=== PATIENT | male | born 1945 | race Caucasian/White ===

== ENCOUNTER 2021-11-18 08:57 | Outpatient (CLI) | payer MEDICARE, BC, OTHER, SELFPAY ==
--- OUTSIDE RECORDS SUMMARY | 2021-11-18 09:04 | XMS_ITS | Continuity of Care Document ---
:1945 Author Organization [facility] Care Team Providers Name Role Phone [facility] Unavailable Unavailable Problems Combined list of problems from Department of Defense and Veterans Affairs facilities. It does not include entries that were removed or entered in error. Problem Status Onset Problem Date of Comments Source Date Type Resolution Lymphoma Active Condition Jun 29, [place] 016 2015 Entered [facility] By: MARCELA DAVIDSON Comment: Low grade follicular lymphoma; by livier LN bx Jun 30, 2015 Entered By: MARCELA DAVIDSON Comment: NHL Atrial fibrillation Active Condition [facility] Cough Active Condition [place] [facility] Drug induced Active Condition [place] pneumonitis [facility] Erectile dysfunction Active Condition [facility] Gastroesophageal Active Condition [place] reflux disease [facility] [place] Hyperlipidemia Active Condition [place] [facility] Insomnia [facility] Malignant neoplasm Active Condition [place] of lower lobe of [facility] right lung Multiple pulmonary Active Condition [place] nodules [facility] Obstructive sleep Active Condition [place] apnea of adult [facility] S Osteoarthritis Active Condition May 28, [place] 2018 Entered [facility] By: AUDI W[place] Comment: S/P left total hip in 2017 Rash Active Condition [facility] 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 [facility] 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 Generalized Inactive Condition 06/30/2015 Jun 23, [place] lymphadenopathy 2016 Entered [facility] By: MARCELA DAVIDSON Comment: Incidental finding from AAA screening 05/2015Jun 24, 2015 Entered By: MARCELA DAVIDSON Comment: IR consult placed 06/2015 Diagnosis: ICD-10-CM Active Diagnosis [place] 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 Provider Comments: Secondary Malignant Neoplasm of Brain Diagnosis: ICD-10-CM Active Diagnosis [place] C34.31 Malignant [facility] neoplasm of lower lobe, right bronchus or lungwith Provider Comments: Malignant neoplasm of lower lobe of right lung (SCT [id number]) Diagnosis: ICD-10-CM Active Diagnosis [place] Z45.2 Encounter for [facility] adjustment and management of VADwith Provider Comments: Encounter for adjustment and management of VAD Diagnosis: ICD-10-CM Active Diagnosis [place] C71.9 Malignant [facility] neoplasm of brain, unspecifiedwith Provider Comments: Secondary malignant neoplasm of brain (SCT 55870800) Diagnosis: ICD-10-CM Active Diagnosis [place] C71.9 Malignant [facility] neoplasm of brain, unspecifiedwith Provider Comments: Secondary malignant neoplasm of brain (SNOMED CT 64274111) Diagnosis: ICD-10-CM Active Diagnosis [place] Z71.89 Other [facility] specified counselingwith Provider Comments: Other specified counseling Diagnosis: ICD-10-CM Active Diagnosis [place] Z23 Encounter for [facility] immunizationwith Provider Comments: Encounter for Immunization Diagnosis: ICD-10-CM Active Diagnosis [place] J20.9 Acute [facility] bronchitis, unspecifiedwith Provider Comments: Acute Bronchitis, unspecified Diagnosis: ICD-10-CM Active Diagnosis [place] G47.33 Obstructive [facility] sleep apnea (adult) (pediatric)with Provider Comments: Obstructive sleep apnea of adult ([facility] [id number]) Diagnosis: ICD-10-CM Active Diagnosis [place] I73.9 Peripheral [facility] vascular disease, unspecifiedwith Provider Comments: Peripheral Vascular Disease, Unspecified Diagnosis: ICD-10-CM Active Diagnosis [place] C82.90 Follicular [facility] lymphoma, unspecified, unspecified sitewith Provider Comments: Lymphoma (SCT 626678251) Diagnosis: ICD-10-CM Active Diagnosis [place] C64.1 Malignant [facility] neoplasm of right kidney, except renal pelviswith Provider Comments: Malignant neoplasm of right kidney, except renal pelvis Diagnosis: ICD-10-CM Active Diagnosis [place] C77.1 Secondary and [facility] unsp malignant neoplasm of intrathorac nodeswith Provider Comments: Secondary malignant neoplasm of intrathoracic lymph nodes (SCT 54741370) Diagnosis: ICD-10-CM Active Diagnosis [place] I48.91 Unspecified [facility] atrial fibrillationwith Provider Comments: Atrial fibrillation (SCT 50425004) Diagnosis: ICD-10-CM Active Diagnosis [place] Z13.6 Encounter for [facility] screening for cardiovascular disorderswith Provider Comments: Encounter for Screening for Cardiovascular Disorders Diagnosis: ICD-10-CM Active Diagnosis [place] B86 Scabieswith [facility] Provider Comments: Scabies Diagnosis: ICD-10-CM Active Diagnosis [place] R05 Coughwith [facility] Provider Comments: Cough (SCT 59501679) Diagnosis: ICD-10-CM Active Diagnosis [place] Z79.01 snf [facility] (current) use of anticoagulantswith 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 Diagnosis: ICD-10-CM Active Diagnosis [place] R21 Rash and other [facility] nonspecific skin eruptionwith Provider Comments: Rash and other Nonspecific Skin Eruption Diagnosis: ICD-10-CM Active Diagnosis [place] G47.33 Obstructive [facility] sleep apnea (adult) (pediatric)with Provider Comments: Obstructive sleep apnea of adult (SNOMED CT [id number]) Diagnosis: ICD-10-CM Active Diagnosis [place] G47.33 Obstructive [facility] sleep apnea (adult) (pediatric)with Provider Comments: Obstructive sleep apnea (adult) (pediatric) Diagnosis: ICD-10-CM Active Diagnosis [place] R06.83 Snoringwith [facility] Provider Comments: Snoring Diagnosis: ICD-10-CM Active Diagnosis [place] Z88.8 Allergy status [facility] to other drug/meds/biol substwith Provider Comments: Drug induced pneumonitis (SNOMED CT 661605422) Diagnosis: ICD-10-CM Active Diagnosis [place] I48.91 Unspecified [facility] atrial fibrillationwith Provider Comments: Atrial fibrillation (SNOMED CT 81424721) Diagnosis: ICD-10-CM Active Diagnosis [place] R42 Dizziness and [facility] giddinesswith Provider Comments: Dizziness and Giddiness Diagnosis: ICD-10-CM Active Diagnosis [place] Z74.09 Other reduced [facility] mobilitywith Provider Comments: Reduced Mobility Diagnosis: ICD-10-CM Active Diagnosis [place] Z71.81 Spiritual or [facility] moravian counselingwith Provider Comments: Spiritual or moravian counseling Diagnosis: ICD-10-CM Active Diagnosis [place] Z51.81 Encounter for [facility] therapeutic drug level monitoringwith Provider Comments: Encounter for Therapeutic Drug Level Monitoring Diagnosis: ICD-10-CM Active Diagnosis [place] R06.02 Shortness of [facility] breathwith Provider Comments: Shortness of Breath Admit Reason: Active Diagnosis [place] PNA,HYPOXIADiagnosis [facility] : ICD-10-CM R05 Coughwith Provider Comments: Cough (SCT 56079511) Diagnosis: ICD-10-CM Active Diagnosis [place] J18.8 Other [facility] pneumonia, unspecified organismwith Provider Comments: Other Pneumonia, unspecified Organism Diagnosis: ICD-10-CM Active Diagnosis [place] R06.09 Other forms [facility] of dyspneawith Provider Comments: Other Forms of Dyspnea Diagnosis: ICD-10-CM Active Diagnosis [place] L30.9 Dermatitis, [facility] unspecifiedwith Provider Comments: Dermatitis, unspecified Medications Combined list of outpatient medications from Department of Defense and Veterans Affairs facilities. Medications provided include 1) outpatient medications from the last 15 months, and 2) patient-reported medications. Medication Details Route Status Patient Prescription Prescription Last Ordering Order Source Instructions Expires Number Dispense Provider Date Date ALBUTEROL INHALE 2 INHALA 07/08/2021 [id number] AN GSUBHAK 09/15/ [place] 90MCG/ACTUA PUFFS BY TION 1 ORN,NATTH 2020 [place] [facility] T (CFC-F) INHALATI APON HCS INHL,ORAL,8 ON FOUR .5GM DOSE TIMES A COUNTER DAY NEEDED SHAKE WELL (FOR IMMEDIAT E RELIEF). APIXABAN TAKE ONE ORALLY ACTIVE 08/16/2022 [id number] SIN NER,KI 08/25/ [place] 5MG TAB TABLET 2 RSTIN M 2021 [place] [facility] BY MOUTH HCS EVERY 12 HOURS TO PREVENT AND/OR TREAT BLOOD CLOTS APIXABAN TAKE ONE ORALLY DISCONT 09/10/2021 [id number] SIN NER,KI 09/09/ [place] 5MG TAB TABLET INUED 2 RSTIN M 2020 [place] [facility] BY [facility]TH [facility] EVERY 12 HOURS TO PREVENT AND/OR TREAT BLOOD CLOTS ATORVASTATI TAKE ORALLY ACTIVE 06/08/2022 [id number] ERICS ON,L 06/30/ [place] CA 20MG ONE-HALF 2 MARCO ANTONIO E 2021 [place] [facility] A TAB TABLET HCS BY MOUTH AT BEDTIME FOR CHOLESTE ROL ATORVASTATI TAKE ORALLY DISCONT 07/16/2021 [id number] M OORHEAD, 07/15/ [place] 20MG ONE-HALF INUED 2 DEBBIE 2020 JARETT S VA TAB TABLET M HCS BY MOUTH AT BEDTIME FOR CHOLESTE ROL AZITHROMYCI TAKE TWO ORALLY 09/21/2021 [id number] MCKINLEY REYES 08/22/ [place] 250MG TAB TABLETS 2 AZ 2021 [place] [facility] A BY MOUTH HCS ONCE FOR 1 DAY, THEN TAKE ONE TABLET EVERY DAY FOR 4 DAYS FOR BRONCHIT IS CHOLECALCIF TAKE TWO ORALLY ACTIVE JACKIE,L 05/03 / [place] MARCIA 25MCG TABLETS MARCO ANTONIO 2021 [place] [facility] A (1,000UNIT) BY MOUTH HCS TAB EVERY DAY CLINDAMYCIN APPLY TO TOPICA 04/22/2021 [id number] HUNGERFOR 04/21/ [place] PO4 1% THIGHS LLY 1 D,JOHN R 2020 [place] [facility] LOTION AND HCS LOWER ABDOMEN TOPICALL Y TWICE A DAY CODEINE TAKE 10 ORALLY 09/21/2021 [id number] ERICMU MT 08/22/ [place] 10MG/GUAIFE ML BY 2 AZ 2021 [place] [facility] NESIN MOUTH HCS 100MG/5ML EVERY 6 (SF & AF) HOURS LIQUID NEEDED FOR COUGH DILTIAZEM TAKE ONE ORALLY ACTIVE 08/31/2022 [id number] GL AUSER,N 08/31/ [place] (EQV-TIAZAC CAPSULE 2 ORA N 2021 [place] A AB4) 180MG BY MOUTH HCS 24HR CAP EVERY DAY DILTIAZEM TAKE ONE ORALLY DISCONT 12/07/2021 [id number] G LAUSER,N 03/13/ [place] (EQV-TIAZAC CAPSULE INUED 2 ORA N 2021 [place] A AB4) 180MG BY MOUTH HCS 24HR CAP EVERY DAY DILTIAZEM TAKE ONE ORALLY DISCONT 09/24/2021 [id number] GL AUSER,N 09/24/ [place] (EQV-TIAZAC CAPSULE INUE 1 ORA N 2020 [place] A AB4) 180MG BY MOUTH HCS 24HR CAP EVERY DAY FAMOTIDINE TAKE ONE ORALLY ACTIVE 04/20/2022 [id number] E RICSON,L 04/19/ [place] 20MG TAB TABLET 2 2021 [place] [facility] TWICE A DAY FOR GERD*REP LACES RANITIDI NE FAMOTIDINE TAKE ONE ORALLY DISCONT 06/08/2021 [id number] JACKIE,L 07/11/ [place] 20MG TAB TABLET INUE 2 2020 [place] [facility] TWICE A DAY FOR GERD*REP LACES RANITIDI NE FOLIC ACID TAKE ONE ORALLY ACTIVE 03/22/2022 [id number] L UIKART,S 03/22/ [place] 1MG TAB TABLET 2 HAR D 2021 [place] [facility] EVERY DAY FOR CHEMO PREMED FOLIC ACID TAKE ONE ORALLY DISCONT 02/23/2021 [id number] L [employer],S 02/22/ [place] 1MG TAB TABLET INUE 1 HARON D 2019 [place] [facility] EVERY DAY FOR CHEMO PREMED GUAIFENESIN TAKE ONE ORALLY 10/01/2021 [id number] JACKIE,L 09/01/ [place] 200MG TAB TABLET 2 E 2021 [place] [facility] BY [facility]TH [facility] EVERY 6 HOURS NEEDED FOR COUGH HYDROXYZINE TAKE ONE ORALLY 04/22/2021 [id number] HUNGERFOR 04/21/ [place] HCL 10MG TABLET 1 D,JOHN R 2020 [place] [facility] A TAB BY MOUTH HCS AT BEDTIME FOR ITCHING MAGNESIUM TAKE ORALLY ACTIVE JACKIE,L 05/03/ [place] OXIDE TAB 400MG BY MARCO ANTONIO E 2021 [place] [facility] A MOUTH HCS EVERY DAY METOPROLOL TAKE ONE ORALLY DISCONT 09/03/2021 [id number] G LAUSER,N 09/07/ [place] TARTRATE TABLET INUED 1 ORA N 2020 [place] [facility] 50MG TAB BY MOUTH HCS TWICE A DAY MULTIVITAMI TAKE ONE ORALLY ACTIVE AWILDA,R 05/06 / [place] NS CAP/TAB TABLET ON2015 [place] [facility] A BY MOUTH HCS EVERY DAY OLODATEROL INHALE 2 INHALA ACTIVE 09/23/2022 [id number] ER ICSON,L 09/23/ [place] 2.5MCG/TIOT PUFFS BY TION 2 E 2021 [place] [facility] ROPIUM INHALATI HCS 2.5MCG/ACTU ON EVERY AT DAY TO INHL,ORAL,6 PREVENT 0D,4GM TROUBLE BREATHIN G OLODATEROL INHALE 2 INHALA DISCONT 10/29/2021 [id number] STEPHY BAZZI 11/01/ [place] 2.5MCG/TIOT PUFFS BY TION INUED 2 IFER L 2020 [place] [facility] ROPIUM INHALATI HCS 2.5MCG/ACTU ON EVERY AT DAY TO INHL,ORAL,6 PREVENT 0D,4GM TROUBLE BREATHIN G PERMETHRIN APPLY TOPICA 10/09/2021 [id number] MOY MARCIAL 10/08/ [place] 5% CREAM THIN LLY 1 OTHY R 2020 [place] [facility] LAYER HCS TOPICALL Y DIRECTED PLEASE APPLY TO ENTIRE SKIN FROM NECK DOWN AND LEAVE ON OVERNIGH T. WASH OFF IN THE MORNING. PLEASE REPEAT 1 WEEK LATER PLEASE APPLY TO ENTIRE SKIN FROM NECK DOWN AND LEAVE ON OVERNIGH T. WASH OFF IN THE MORNING. PLEASE REPEAT 1 WEEK LATER PREDNISONE TAKE ORALLY 10/21/2020 [id number] ARCHIB ALD 09/21/ [place] 10MG TAB THREE 1 ,JOHN K 2020 [place] [facility] TABLETS HCS BY MOUTH EVERY MORNING TAKE WITH FOOD TERBINAFINE APPLY TOPICA 06/11/2021 [id number] JANETT MEYER 06/11/ [place] HCL 1% THIN LLY 1 OOKE M 2020 [place] [facility] CREAM,TOP LAYER HCS TOPICALL Y TWICE A DAY FOR FUNGAL INFECTIO N TRIAMCINOLO APPLY TOPICA 06/11/2021 [id number] JANETT MEYER 06/11/ [place] NE THIN LLY 1 OOKE M 2020 [place] [facility] ACETONIDE LAYER HCS 0.1% TOPICALL OINT,TOP Y TWICE A DAY AVOID FACE,LAURA IN and ARMPITS *FOR EXTERNAL USE ONLY FOR DERMATIT IS UREA 40% APPLY TOPICA 03/27/2021 [id number] AIDEN 03/26/ [place] CREAM,TOP THIN LLY 1 NATI 2020 [place] [facility] LAYER [facility] EVERY DAY OR TWICE A DAY FOR THICK SKIN ON SOLES OF FEET Immunizations Combined list of available immunizations from the Department of Defense and Veterans Affairs facilities. 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; [place] ([employer]), 2021 ed [id number]; [place] MRNA, LNP-S, 02 HCS PF, 30 2 MCG/0.3 ML DOSE, PAUL-SUCROSE (AGES 12+ YEARS) COVID-19 3 complet PFR; [place] ([employer] 2020 ed [id number]; [place] MRNA, LNP-S, 02 HCS PF, 30 1 MCG/0.3 ML DOSE INFLUENZA, complet [place] INJECTABLE, 2020 ed [place] QUADRIVALENT, HCS PRESERVATIVE FREE COVID-19 2 complet PFR; [place] ([employer] 2020 ed [id number]; [place] MRNA, LNP-S, 02 HCS PF, 30 1 MCG/0.3 ML DOSE COVID-19 1 complet PFR; [place] ([employer] 2020 ed [id number]; [place] MRNA, LNP-S, 02 HCS PF, 30 1 MCG/0.3 ML DOSE INFLUENZA, complet [place] INJECTABLE, 2019 ed [place] QUADRIVALENT, HCS PRESERVATIVE FREE INFLUENZA, complet [place] SEASONAL, 2017 ed [place] [facility] INJECTABLE, HC S PRESERVATIVE FREE INFLUENZA, complet [place] HIGH DOSE 2016 ed [facility] [facility] SEASONAL [facility] INFLUENZA, complet [place] HIGH DOSE 2015 ed [facility] [facility] SEAS[facility] PNEUMOCOCCAL complet merc k and [place] POLYSACCHARID 2016 ed [id number] [place] [facility] E [id number] ,[id number] HC S 7 PNEUMOCOCCAL complet Wyet h; [place] CONJUGATE PCV 2016 ed [id number] ; [place] [facility] 13 07/2016 HCS ZOSTER LIVE complet [employer] ; [place] 2016 ed [id number]; [place] [facility] 6 INFLUENZA, complet [place] SEASONAL, 2015 ed [place] [facility] INJECTABLE [facility]CS TDAP complet [place] 2014 ed CLINIC Results Combined list of recent chemistry, hematology and other laboratory results from Department of Defense and Veterans Affairs, ranging from 15 months to all on record, depending upon the facility. Order Results Value Reference Date Interpretation Specimen Commen ts Source Name Range FINGERST GLUCOSE 109 70 - 100 0818 H Specimen Type: BLOOD [place] ICK [MASS/VOLU /2021 Comment: Sebastian e Result IS [facility] GLUCOSE ME] IN Ordering Provid er: LIAM MEJIA CAPILLARY Report Releas ed Date/Time: Oct 27, 2021 01:25 PM BLOOD Reporting Lab: [facility] [place] [address] Performing Lab: [facility] [place] [address] CBC & LEUKOCYTES 10.67 4.0 - 11.0 0818 Specimen T ype: BLOOD [place] DIFF [#/VOLUME] /2021 Comment: Aut omated Differential Performed IS [facility] IN BLOOD Ordering Provi reji: DENG LOUISE BY Report Released Date/Time: Oct 14, 2021 10:46 AM AUTOMATED Reporting Lab : [facility] [address] [place] [facility] [phone] Performing Lab: [facility] [address] [place] [facility] [address] CBC & ERYTHROCYT 3.73 4.6 - 6.2 08/18 L Specimen Ty pe: BLOOD [place] DIFF ES /2021 Comment: Automa kerrie Differential Performed IS [facility] [#/VOLUME] Ordering Pro vider: DENG LOUISE IN BLOOD Report Release d Date/Time: Oct 14, 2021 10:46 AM BY Reporting Lab: [facility] AUTOMATED [address] [employer] [facility] [address] COUNT Performing Lab: [facility] [address] [place] [facility] [address] CBC & HEMOGLOBIN 11.4 13.5 - 08/18 L Specimen Type : BLOOD [place] DIFF [MASS/VOLU 17.9 /2021 Comment: Aut omated Differential Performed IS [facility] ME] IN Ordering Provid er: DENG LOUISE BLOOD Report Released Date/Time: Oct 14, 2021 10:46 AM Reporting Lab: [facility] [address] [place] [facility] [phone] Performing Lab: [facility] [address] [place] [facility] [address] CBC & HEMATOCRIT 34.7 41 - 54 08/18 L Specimen Type : BLOOD [place] DIFF [VOLUME /2021 Comment: Automa kerrie Differential Performed IS [facility] FRACTION] Ordering Prov ider: DENG LOUISE OF BLOOD Report Release d Date/Time: Oct 14, 2021 10:46 AM BY Reporting Lab: [facility] AUTOMATED [address] [employer] [facility] [address] COUNT Performing Lab: [facility] [address] [place] [facility] [address] CBC & MCV 93.0 80 - 100 10/27 Specimen Type: BLOOD [place] DIFF [ENTITIC /2021 Comment: Autom ated Differential Performed IS [facility] VOLUME] BY Ordering Pro vider: DENG LOUISE AUTOMATED Report Releas ed Date/Time: Oct 14, 2021 10:46 AM COUNT Reporting Lab: [facility] [address] [place] [facility] [phone] Performing Lab: [facility] [address] [place] [facility] [address] CBC & MCH 30.6 27 - 33 10/27 Specimen Type: B LOOD [place] DIFF [ENTITIC /2021 Comment: Autom ated Differential Performed IS [facility] MASS] BY Ordering Provi reji: DENG LOUISE AUTOMATED Report Releas ed Date/Time: Oct 14, 2021 10:46 AM COUNT Reporting Lab: [facility] [address] [place] [facility] [phone] Performing Lab: [facility] [address] [place] [facility] [address] CBC & MCHC 32.9 32.0 - 10/27 Specimen Type: B LOOD [place] DIFF [MASS/VOLU 37.5 /2021 Comment: Aut omated Differential Performed IS [facility] ME] BY Ordering Provid er: DENG LOUISE AUTOMATED Report Releas ed Date/Time: Oct 14, 2021 10:46 AM COUNT Reporting Lab: [facility] [address] [place] [facility] [address] Performing Lab: [facility] [address] [place] [facility] [address] CBC & PLATELETS 212 150 - 400 10/27 Specimen Typ e: BLOOD [place] DIFF [#/VOLUME] /2021 Comment: Aut omated Differential Performed IS [facility] IN BLOOD Ordering Provi reji: DENG LOUISE BY Report Released Date/Time: Oct 14, 2021 10:46 AM AUTOMATED Reporting Lab : [facility] COUNT [address] [place] [facility] [address] Performing Lab: [facility] [address] [place] [facility] [address] CBC & PLATELET 8.5 7.4 - 10.4 10/27 Specimen Typ e: BLOOD [place] DIFF MEAN /2021 Comment: Automa kerrie Differential Performed IS [facility] VOLUME Ordering Provid er: DENG LOUISE [ENTITIC Report Release d Date/Time: Oct 14, 2021 10:46 AM VOLUME] IN Reporting La b: [facility] BLOOD [place] [address] AUTOMATED Performing La b: [facility] COUNT [address] [place] [address] CBC & NEUTROPHIL 87.9 10/27 Specimen Type : BLOOD [place] DIFF S/100 /2021 Comment: Automa kerrie Differential Performed IS [facility] LEUKOCYTES Ordering Pro vider: DENG LOUISE IN BLOOD Report Release d Date/Time: Oct 14, 2021 10:46 AM BY MANUAL Reporting Lab : [facility] [place] [address] Performing Lab: [facility] [address] [place] [address] CBC & LYMPHOCYTE 8.1 10/27 Specimen Type : BLOOD [place] DIFF S/100 /2021 Comment: Automa kerrie Differential Performed IS [facility] LEUKOCYTES Ordering Pro vider: DENG LOUISE IN BLOOD Report Release d Date/Time: Oct 14, 2021 10:46 AM BY MANUAL Reporting Lab : [facility] [place] [address] Performing Lab: [facility] [place] [address] CBC & MONOCYTES/ 3.3 10/27 Specimen Type : BLOOD [place] DIFF 100 /2021 Comment: Automa kerrie Differential Performed IS [facility] LEUKOCYTES Ordering Pro vider: DENG LOUISE IN BLOOD Report Release d Date/Time: Oct 14, 2021 10:46 AM BY Reporting Lab: [facility] [place] [address] COUNT Performing Lab: [facility] [place] [address] CBC & BASOPHILS/ 0.1 10/27 Specimen Type : BLOOD [place] DIFF 100 /2021 Comment: Automa kerrie Differential Performed IS [facility] LEUKOCYTES Ordering Pro vider: DENG LOUISE IN BLOOD Report Release d Date/Time: Oct 14, 2021 10:46 AM BY MANUAL Reporting Lab : [facility] [place] [address] Performing Lab: [facility] [place] [address] CBC & ERYTHROCYT 14.4 11.5 - 10/27 Specimen Type : BLOOD [place] DIFF E 14.5 /2021 Comment: Automa kerrie Differential Performed IS [facility] DISTRIBUTI Ordering Pro vider: DENG LOUISE ON WIDTH Report Release d Date/Time: Oct 14, 2021 10:46 AM [RATIO] BY Reporting La b: [facility] AUTOMATED [address] [facility] [address] COUNT Performing Lab: [facility] [address] [place] [facility] [address] CBC & LYMPHOCYTE 0.86 1.0 - 4.0 08/18 L Specimen Ty pe: BLOOD [place] DIFF S /2021 Comment: Automa kerrie Differential Performed IS [facility] [#/VOLUME] Ordering Pro vider: DENG LOUISE IN BLOOD Report Release d Date/Time: Oct 14, 2021 10:46 AM BY Reporting Lab: [facility] AUTOMATED [address] [employer] [facility] [address] COUNT Performing Lab: [facility] [address] [place] [facility] [address] CBC & MONOCYTES 0.35 0.1 - 1.0 08 Specimen Typ e: BLOOD [place] DIFF [#/VOLUME] /2021 Comment: Aut omated Differential Performed IS [facility] IN BLOOD Ordering Provi reji: DENG LOUISE BY Report Released Date/Time: Oct 14, 2021 10:46 AM AUTOMATED Reporting Lab : [facility] [address] [place] [facility] [address] Performing Lab: [facility] [address] [place] [facility] [address] CBC & NEUTROPHIL 9.39 2.0 - 7.7 08/18 H Specimen Ty pe: BLOOD [place] DIFF S /2021 Comment: Automa kerrie Differential Performed IS [facility] [#/VOLUME] Ordering Pro vider: DENG LOUISE IN BLOOD Report Release d Date/Time: Oct 14, 2021 10:46 AM BY Reporting Lab: [facility] AUTOMATED [address] [employer] [facility] [address] COUNT Performing Lab: [facility] [address] [place] [facility] [address] CBC & BASOPHILS 0.01 0 - 0.2 10/27 Specimen Type: BLOOD [place] DIFF [#/VOLUME] /2021 Comment: Aut omated Differential Performed IS [facility] IN BLOOD Ordering Provi reji: DENG LOUISE BY Report Released Date/Time: Oct 14, 2021 10:46 AM AUTOMATED Reporting Lab : [facility] [address] [place] [address] Performing Lab: [facility] [address] [place] [address] CBC & IG(META,MY 0.6 10/27 Specimen Type : BLOOD [place] DIFF EDEL,PRO) /2021 Comment: Autom ated Differential Performed IS [facility] Ordering Provid er: DENG LOUISE Report Released Date/Time: Oct 14, 2021 10:46 AM Reporting Lab: [facility] [address] [place] [address] Performing Lab: [facility] [address] [place] [id number] CBC & IMMATURE 0.06 0 - 0.1 10/27 Specimen Type: BLOOD [place] DIFF GRANULOCYT /2021 Comment: Aut omated Differential Performed IS [facility] ES Ordering Provid er: DENG LOUISE [PRESENCE] Report Relea sed Date/Time: Oct 14, 2021 10:46 AM IN BLOOD Reporting Lab: [facility] [place] [address] AUTOMATED Performing La b: [facility] [place] [address] COMPREHE CREATININE 1.0 0.7 - 1.2 10/27 Specimen T ype: PLASMA [place] NSIVE [MASS/VOLU /2021 No comment en tered. IS [facility] METABOLI ME] IN Ordering Provi reji: DENG LOUISE SERUM OR Report Release d Date/Time: Oct 14, 2021 10:46 AM PANEL+MG PLASMA Reporting Lab: [facility] [place] [address] Performing Lab: [facility] [address] [place] [facility] [address] COMPREHE UREA 23 8 - 26 10/27 Specimen Type: PLASMA [place] NSIVE NITROGEN /2021 No comment ente red. IS [facility] METABOLI [MASS/VOLU Ordering Pr ovider: DENG LOUISE ME] IN Report Released Date/Time: Oct 14, 2021 10:46 AM PANEL+MG SERUM OR Reporting Lab : [facility] [place] [address] Performing Lab: [facility] [address] [place] [facility] [address] COMPREHE GLUCOSE 115 70 - 100 10/27 H Specimen Type: PLASMA [place] NSIVE [MASS/VOLU /2021 No comment en tered. IS [facility] METABOLI ME] IN Ordering Provi reji: DENG LOUISE SERUM OR Report Release d Date/Time: Oct 14, 2021 10:46 AM PANEL+MG PLASMA Reporting Lab: [facility] [address] [place] [facility] [address] Performing Lab: [facility] [address] [place] [facility] [address] COMPREHE SODIUM 141 136 - 145 10/27 Specimen Type : PLASMA [place] NSIVE [MOLES/VOL /2021 No comment en tered. IS [facility] METABOLI UME] IN Ordering Provi reji: DENG LOUISE SERUM OR Report Release d Date/Time: Oct 14, 2021 10:46 AM PANEL+MG PLASMA Reporting Lab: [facility] [address] [place] [facility] [address] Performing Lab: [facility] [address] [place] [facility] [address] COMPREHE POTASSIUM 4.1 3.5 - 5.1 10/27 Specimen Ty pe: PLASMA [place] NSIVE [MOLES/VOL /2021 No comment en tered. IS [facility] METABOLI UME] IN Ordering Provi reji: DENG LOUISE SERUM OR Report Release d Date/Time: Oct 14, 2021 10:46 AM PANEL+MG PLASMA Reporting Lab: [facility] [address] [place] [facility] [address] Performing Lab: [facility] [address] [place] [facility] [address] COMPREHE CHLORIDE 109 98 - 107 10/27 H Specimen Type : PLASMA [place] NSIVE [MOLES/VOL /2021 No comment en tered. IS [facility] METABOLI UME] IN Ordering Provi reji: DENG LOUISE SERUM OR Report Release d Date/Time: Oct 14, 2021 10:46 AM PANEL+MG PLASMA Reporting Lab: [facility] [address] [place] [facility] [address] Performing Lab: [facility] [address] [place] [facility] [address] COMPREHE CARBON 24 22 - 29 10/27 Specimen Type: PLASMA [place] NSIVE DIOXIDE, /2021 No comment ente red. IS [facility] [place] TOTAL Ordering Provi reji: DENG LOUISE [MOLES/VOL Report Relea sed Date/Time: Oct 14, 2021 10:46 AM PANEL+MG UME] IN Reporting Lab: [facility] SER[facility] OR [address] [place] [facility] [address] PLASMA Performing Lab: [facility] [address] [place] [facility] [address] COMPREHE CALCIUM 8.8 8.4 - 10.2 10/27 Specimen Typ e: PLASMA [place] NSIVE [MASS/VOLU /2021 No comment en tered. IS [facility] METABOLI ME] IN Ordering Provi reji: DENG LOUISE SERUM OR Report Release d Date/Time: Oct 14, 2021 10:46 AM PANEL+MG PLASMA Reporting Lab: [facility] [address] [place] [facility] [address] Performing Lab: [facility] [address] [place] [facility] [address] COMPREHE PROTEIN 6.0 6.0 - 8.3 10/27 Specimen Type : PLASMA [place] NSIVE [MASS/VOLU /2021 No comment en tered. IS [facility] METABOLI ME] IN Ordering Provi reji: DENG LOUISE SERUM OR Report Release d Date/Time: Oct 14, 2021 10:46 AM PANEL+MG PLASMA Reporting Lab: [facility] [address] [place] [facility] [address] Performing Lab: [facility] [address] [place] [facility] [address] COMPREHE ALBUMIN 3.4 3.5 - 5.2 10/27 L Specimen Type : PLASMA [place] NSIVE [MASS/VOLU /2021 No comment en tered. IS [facility] METABOLI ME] IN Ordering Provi reji: DENG LOUISE SERUM OR Report Release d Date/Time: Oct 14, 2021 10:46 AM PANEL+MG PLASMA Reporting Lab: [facility] [address] [place] [facility] [address] Performing Lab: [facility] [address] [place] [facility] [address] COMPREHE BILIRUBIN. 0.3 0.2 - 1.2 10/27 Specimen T ype: PLASMA [place] NSIVE TOTAL /2021 No comment enter ed. IS [facility] METABOLI [MASS/VOLU Ordering Pr ovider: DENG LOUISE ME] IN Report Released Date/Time: Oct 14, 2021 10:46 AM PANEL+MG SERUM OR Reporting Lab : [facility] [address] [place] [facility] [address] Performing Lab: [facility] [address] [place] [facility] [address] COMPREHE MAGNESIUM 1.9 1.6 - 2.6 10/27 Specimen Ty pe: PLASMA [place] NSIVE [MASS/VOLU /2021 No comment en tered. IS [facility] METABOLI ME] IN Ordering Provi reji: DENG LOUISE SERUM OR Report Release d Date/Time: Oct 14, 2021 10:46 AM PANEL+MG PLASMA Reporting Lab: [facility] [address] [place] [facility] [address] Performing Lab: [facility] [address] [place] [facility] [address] COMPREHE ANION GAP 8 5 - 15 10/27 Specimen Type : PLASMA [place] NSIVE IN SERUM /2021 No comment ente red. IS [facility] METABOLI OR PLASMA Ordering Pro vider: DENG LOUISE Report Released Date/Time: Oct 14, 2021 10:46 AM PANEL+MG Reporting Lab: [facility] [address] [place] [facility] [address] Performing Lab: [facility] [address] [place] [facility] [address] COMPREHE ALKALINE 66 40 - 150 10/27 Specimen Type : PLASMA [place] NSIVE PHOSPHATAS /2021 No comment en tered. IS [facility] METABOLI E Ordering Provi reji: DENG LOUISE [ENZYMATIC Report Relea sed Date/Time: Oct 14, 2021 10:46 AM PANEL+MG ACTIVITY/V Reporting L ab: [facility] OLUME] IN [facility] [address] SERUM OR Performing Lab : [facility] [address] [place] [facility] [address] COMPREHE ALANINE 26 <55 - 55 10/27 Specimen Type: PLASMA [place] NSIVE AMINOTRANS /2021 No comment en tered. IS [facility] METAB[place]I FERASE Ordering Provi reji: DENG LOUISE [ENZYMATIC Report Relea sed Date/Time: Oct 14, 2021 10:46 AM PANEL+MG ACTIVITY/V Reporting L ab: [facility] OLUME] IN ONE [facility] [address] SERUM OR Performing Lab : [facility] [address] [place] [facility] [address] COMPREHE ASPARTATE 10 <34 - 34 10/27 Specimen Typ e: PLASMA [place] NSIVE AMINOTRANS /2021 No comment en tered. IS [facility] METABOLI FERASE Ordering Provi reji: DENG LOUISE [ENZYMATIC Report Relea sed Date/Time: Oct 14, 2021 10:46 AM PANEL+MG ACTIVITY/V Reporting L ab: [facility] OLUME] IN [address] [facility] [address] SERUM OR Performing Lab : [facility] [address] [place] [facility] [address] COMPREHE GLOMERULAR 78 60 10/27 Specimen Typ e: PLASMA [place] NSIVE FILTRATION /2021 No comment en tered. IS [facility] MET[place]I RATE/1.73 Ordering Pro vider: DENG LOUISE SQ Report Released Date/Time: Oct 14, 2021 10:46 AM PANEL+MG M.PREDICTE Reporting L ab: [facility] D [VOLUME [facility] [address] RATE/AREA] Performing L ab: [facility] IN SERUM, [facility] [address] PLASMA OR BLOOD BY CREATININE -BASED FORMULA (CKD-EPI) POC CREATININE 1.2 0.6 - 1.3 09/15 Specimen Ty pe: BLOOD [place] CREATINI [MASS/VOLU /2021 No comment e ntered. IS [facility] NE ME] IN Ordering Provid er: LIAM MEJIA BLOOD Report Released Date/Time: Sep 15, 2021 10:02 AM Reporting Lab: [facility] [address] [place] [facility] [address] Performing Lab: [facility] [address] [place] [facility] [address] EXTRA EXTRA MINT RECEIVED 09/15 Specimen Typ e: PLASMA [place] MINT TUBE /2021 No comment enter ed. IS [facility] TUBE Ordering Provid er: LIAM MEJIA Report Released Date/Time: Sep 15, 2021 09:39 AM Reporting Lab: [facility] [address] [place] [facility] [address] Performing Lab: [facility] [address] [place] [facility] [address] B 12 COBALAMIN 746 265 - 580 09/15 Specimen Typ e: SERUM [place] (VITAMIN /2021 No comment ente red. IS [facility] B12) Ordering Provid er: CHACHO GOMEZ [MASS/VOLU Report Relea sed Date/Time: May 21, 2021 03:59 PM ME] IN Reporting Lab: [facility] SERUM OR [address] [place] [address] PLASMA Performing Lab: [facility] [address] [place] [address] IRON IRON 71 65 - 175 07 Specimen Type: SERUM [place] GROUP [MASS/VOLU /2021 No comment en tered. IS [facility] ME] IN Ordering Provid er: PATRICIASHANACHACHO SERUM OR Report Release d Date/Time: May 21, 2021 03:59 PM PLASMA Reporting Lab: [facility] [address] [place] [address] Performing Lab: [facility] [address] [place] [address] IRON IRON 258 250 - 425 09/15 Specimen Type: SERUM [place] GROUP BINDING No comment enter ed. IS [facility] CAPACITY Ordering Provi reji: PATRICIA,CHACHO [MASS/VOLU Report Relea sed Date/Time: May 21, 2021 03:59 PM ME] IN Reporting Lab: [facility] SERUM OR [address] [place] [facility] [address] PLASMA Performing Lab: [facility] [address] [place] [address] IRON FERRITIN 195.5 21.8 - 07/ Specimen Type: SERUM [place] GROUP [MASS/VOLU 274.7 /2021 No comment en tered. IS [facility] ME] IN Ordering Provid er: PATRICIA,CHACHO SERUM OR Report Release d Date/Time: May 21, 2021 03:59 PM PLASMA Reporting Lab: [facility] [address] [place] [address] Performing Lab: [facility] [address] [place] [address] IRON IRON 28 20 - 50 07/ Specimen Type: S ZORAIDA [place] GROUP SATURATION No comment en tered. IS [facility] Ordering Provid er: PATRICIACHACHO Report Released Date/Time: May 21, 2021 03:59 PM Reporting Lab: [facility] [address] [place] [address] Performing Lab: [facility] [address] [place] [address] IRON TRANSFERRI 206 163 - 382 07 Specimen Ty pe: SERUM [place] GROUP N /2021 No comment enter ed. IS [facility] [MASS/VOLU Ordering Pro vider: CHACHO GOMEZ ME] IN Report Released Date/Time: May 21, 2021 03:59 PM SERUM OR Reporting Lab: [facility] [place] [address] Performing Lab: [facility] [place] [address] LD,TOTAL LACTATE 148 125 - 220 09/15 Specimen Type : PLASMA [place] DEHYDROGEN /2021 No comment en tered. IS [facility] ASE Ordering Provid er: CHACHO GOMEZ [ENZYMATIC Report Relea sed Date/Time: May 21, 2021 03:59 PM ACTIVITY/V Reporting La b: [facility] OLU[facility]] IN [facility] [address] SERUM OR Performing Lab : [facility] PLASMA BY [facility] [address] LACTATE TO PYRUVATE REACTION RETICS RETICULOCY 0.0751 0.0300 - 07 Specimen Typ e: BLOOD [place] ALPHONSE/100 0.1000 /2021 Comment: Automa kerrie Differential Performed IS [facility] ERYTHROCYT Ordering Pro vider: CHACHO GOMEZ ES IN Report Released Date/Time: May 21, 2021 03:59 PM BLOOD BY Reporting Lab: [facility] AUTOMATED [facility] [address] COUNT Performing Lab: [facility] [address] [place] [facility] [address] RETICS RETICULOCY 1.78 0.6 - 2.0 09/15 Specimen Ty pe: BLOOD [place] ALPHONSE/100 /2021 Comment: Automa kerrie Differential Performed IS [facility] ERYTHROCYT Ordering Pro vider: CHACHO GOMEZ ES IN Report Released Date/Time: May 21, 2021 03:59 PM BLOOD BY Reporting Lab: [facility] AUTOMATED [facility] [address] COUNT Performing Lab: [facility] [address] [place] [facility] [address] RETICS IMMATURE 12.5 1.0 - 14.0 09/15 Specimen Typ e: BLOOD [place] RETICULOCY /2021 Comment: Aut omated Differential Performed IS [facility] ALPHONSE/RETICU Ordering Pro vider: CHACHO GOMEZ LOCYTES.TO Report Relea sed Date/Time: May 21, 2021 03:59 PM OFE IN Reporting Lab: [facility] BLOOD [address] [place] [facility] [address] Performing Lab: [facility] [address] [place] [facility] [address] RETICS RETICULOCY 34.2 28.2 - 09/15 Specimen Type : BLOOD [place] TE 36.6 /2021 Comment: Dee Pierre Performed IS [facility] PRODUCTION Ordering Pro vider: CHACHO GOMEZ INDEX Report Released Date/Time: May 21, 2021 03:59 PM Reporting Lab: [facility] [address] [place] [facility] [address] Performing Lab: [facility] [address] [place] [facility] [address] Vital Signs Combined list of inpatient and outpatient Vital Signs from Department of Defense and Veterans Affairs, ranging from 12 months to all on record, depending upon the facility. Vital Sign Value Date Comments Source SYSTOLIC BLOOD PRESSURE 146 11/02/2021 09:03:19 [facility] DIASTOLIC BLOOD PRESSURE 75 11/02/2021 09:03:19 [facility] PULSE OXIMETRY 98% 11/02/2021 09:03:19 [place] [facility] WEIGHT 180.7 11/02/2021 09:03:19 [place] [facility] BMI 28kg/m2 11/02/2021 09:03:19 [place] [facility] PAIN 0 11/02/2021 09:03:19 [place] [facility] TEMPERATURE 97.4 11/02/2021 09:03:19 [place] [facility] P[facility]SE 81 11/02/2021 09:03:19 [place] [facility] RESPIRATION 16 11/02/2021 09:03:19 [place] [facility] SYSTOLIC BLOOD PRESSURE 130 08/22/2021 11:14:00 [facility] DIASTOLIC BLOOD PRESSURE 58 08/22/2021 11:14:00 [facility] PAIN 0 08/22/2021 11:14:00 [place] [facility] TEMPERATURE 98.1 08/22/2021 11:14:00 [place] [facility] PULSE 90 08/22/2021 11:14:00 [place] [facility] RESPIRATION 20 08/22/2021 11:14:00 [place] [facility] SYSTOLIC BLOOD PRESSURE 146 05/26/2021 15:21:07 [facility] DIASTOLIC BLOOD PRESSURE 72 05/26/2021 15:21:07 [facility] PULSE OXIMETRY 96% 05/26/2021 15:21:07 [place] [facility] WE[facility] 193 05/26/2021 15:21:07 [place] [facility] [facility] BMI 29kg/m2 05/26/2021 15:21:07 [place] [facility] [facility] PAIN 0 05/26/2021 15:21:07 [place] [facility] [facility] TEMPERATURE 98.4 05/26/2021 15:21:07 [place] [facility] [facility] PULSE 83 05/26/2021 15:21:07 [place] [facility] [facility] RESPIRATION 18 05/26/2021 15:21:07 [place] [facility] [facility] SYSTOLIC BLOOD PRESSURE 115 05/20/2021 08:20:26 [place] DIASTOLIC BLOOD PRESSURE 72 05/20/2021 08:20:26 [place] [facility] PULSE OXIMETRY 97% 05/20/2021 08:20:26 [place] [facility] WEIGHT 191.4 05/20/2021 08:20:26 [place] [facility] [facility] BMI 29kg/m2 05/20/2021 08:20:26 [place] [facility] [facility] PAIN 0 05/20/2021 08:20:26 [place] [facility] [facility] TEMPERATURE 97 05/20/2021 08:20:26 [place] [facility] [facility] PULSE 86 05/20/2021 08:20:26 [place] [facility] [facility] RESPIRATION 16 05/20/2021 08:20:26 [place] [facility] SYSTOLIC BLOOD PRESSURE 123 01/24/2021 10:05:47 [place] DIASTOLIC BLOOD PRESSURE 78 01/24/2021 10:05:47 [place] PULSE OXIMETRY 98% 01/24/2021 10:05:47 [place] [facility] [facility] WEIGHT 193.5 01/24/2021 10:05:47 [place] [facility] [facility] BMI 29kg/m2 01/24/2021 10:05:47 [place] [facility] [facility] PAIN 0 01/24/2021 10:05:47 [place] [facility] TEMPERATURE 98.2 01/24/2021 10:05:47 [place] [facility] [facility] PULSE 86 01/24/2021 10:05:47 [place] [facility] [facility] RESPIRATION 14 01/24/2021 10:05:47 [place] [facility] [facility] Encounters Combined list of: 1) Encounters from Department of Veterans Affairs facilities going back up to the last 18 months. 2) Encounters from the Department of Defense facilities going back up to 280 months. 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, except renal pelvis DRAW BLOOD 87232-5.61 Diagnos KRISTIN CARIAS 05/26 [place] OFF VENOUS [id number] is: LIZ J [facility] DEVICE ICD-10- HCS CM Z45.2 Encount er for adjustm ent and managem ent of VAD<br/ >with Provide r Comment s: Encount er for adjustm ent and managem ent of [facility] DECLOT 90077-0 Diagnos ARIC REYES 05/31 [place] VASCULAR [id number] is: L B [facility] A DEVICE ICD-10- HCS CM Z45.2 Encount er for adjustm ent and managem ent of VAD<br/ >with Provide r Comment s: Encount er for adjustm ent and managem ent of [facility] OFFICE O/P 73119-2 Diagnos HOLLY, 05/31 [place] EST MOD [id number] is: BONIFACIO D [facility] A 30-39 MIN ICD-10- HCS CM C82.90 Follicu lar lymphom a, unspeci fied, unspeci fied site
with Provide r Comment s: Lymphom a (SCT [id number]) Outpatient 85626-7.61 Diagnos JACKIE,LA 06/01 [place] Encounter [id number] is: INE E [facility] ICD-10- HCS CM C82.90 Follicu lar lymphom a, unspeci fied, unspeci fied site
with Provide r Comment s: Lymphom a (SCT [id number] 07) Outpatient 92149-3.61 PERALTA,CAT 06/08 [place] Encounter [id number] [facility] OFFICE O/P 51287-5.61 Diagnos MADELINE,AN 06/10 [place] EST MOD [id number] is: THIERNO L [facility] A 30-39 MIN ICD-10- [facility] CM L30.9 Dermati tis, unspeci fied
with Provide r Comment s: Dermati tis, unspeci fied Outpatient 01728-9.61 06/11 [place] En[place] [id number] [facility] Outpatient 24515-9.61 SYSTEM,CIS 06/25 [place] Encounter [id number] -AR [facility] Outpatient 55912-8.61 SYSTEM,CIS 06/25 [place] Encounter [id number] -AR [facility] Outpatient 06108-5.61 NORRI,TRAC 06/25 [place] Encounter [id number] Y L [facility] EMERGENCY 74342-1.61 Diagnos 06/25 [place] DEPT VISIT [id number] is: [facility] ICD-10- [facility] CM R06.09 Other forms of dyspnea
wi th Provide r Comment s: Other Forms of Dyspnea Outpatient 18234-5.61 SYSTEM,CIS 07/05 [place] Encounter [id number] -[facility] Outpatient 59714-9.61 SHANNON,RADHA 07/05 [place] Encounter [id number] [facility] Outpatient 10681-1.61 SYSTEM,CIS 07/05 [place] Encounter [id number] -[facility] Outpatient 40064-0.61 07/05 [place] En[place] [id number] [facility] EMERGENCY 29335-4.61 Diagnos 07/05 [place] DEPT VISIT [id number] is: [facility] ICD-10- [facility] CM J18.8 Other pneumon ia, unspeci fied organis m
w ith Provide r Comment s: Other Pneumon ia, unspeci fied Organis m MOD SED 18006-8.61 Admit TEAM,MED 07/05 07/15 Discharge [place] OTHER [id number] Reason: II /2020 [facility],HYP inpatient HCS EA OXIA<br treatment to />Diagn the Service osis: Connected ICD-10- (OPT-SC) CM R05 rolls. Cough<b r/>with Provide r Comment s: Cough (SCT [id number]) Inpatient 73161-8.61 SYSTEM,CIS 07/05 07/05 [place] Encounter [id number] -ARK /2020 [facility] Inpatient 97961-6.61 07/05 07/05 [place] En[place] [id number] /2020 [facility] Inpatient 34922-6.61 07/05 07/05 [place] En[facility] [id number] /[facility] 09843-4.61 07/06 07/06 [place] En[place] [id number] /[facility] Inpatient 78842-8.61 SYSTEM,CIS 07/06 07/06 [place] En[place] [id number] -[facility] 85420-7.61 Diagnos MCCJAZZ,COLETTE 07/06 07/06 [place] MOD [id number] is: MARIAELENA PUGH /2020 [facility] COMPLEX 30 ICD-10- HCS MIN CM R06.02 Shortne ss of breath< br/>wit h Provide r Comment s: Shortne ss of Breath Inpatient 19236-7.61 07/07 07/07 [place] En[place] [id number] /[facility] Inpatient 35844-1.61 SYSTEM,CIS 07/07 07/07 [place] Encounter [id number] -ARK /2020 [facility] Inpatient 55519-0.61 07/07 [place] En[place] [id number] /2020 [facility] INJ 65019-6.61 Diagnos WLASCHIN,C 07/07 07/07 [place] PERFLUTREN [id number] is: HRISTINE M /2020 [facility] [facility] ICD-10- HCS MICROS,ML CM 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<b r/>with Provide r Comment s: Seconda ry maligna 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 (SCT [id number]) Inpatient 78657-6.61 07/07 07/07 [place] Encounter [id number] /2020 [facility] Inpatient 03196-5.61 07/08 07/08 [place] Encounter [id number] /2020 [facility] Inpatient 58954-7.61 SYSTEM,CIS 07/08 07/08 [place] Encounter [id number] -ARK /2020 [facility] Inpatient 53563-2.61 07/08 07/08 [place] Encounter [id number] /2020 [facility] Inpatient 97998-6.61 07/08 07/08 [place] Encounter [id number] /2020 [place] [address]-1.61 Diagnos LYNDON,BR 07/08 07/08 [place] PARTS DESIGNER [id number] is: UCE C /2020 [facility] V A SECURITIES SUPERVISOR ICD-10- HCS INDIVIDU CM Z71.81 Spiritu al or religio us weight loss counselor ing<br/ >with Provide r Comment s: Spiritu al or religio us weight loss counselor ing Inpatient 20840-0.61 07/09 07/09 [place] Encounter [id number] /2020 [facility] In[facility] 81151-8.61 SYSTEM,CIS 07/09 07/09 [place] Encounter [id number] -ARK /2020 [facility] Inpatient 77713-8.61 07/09 07/09 [place] Encounter [id number] /2020 [facility] Inpatient 71482-4.61 07/09 07/09 [place] Encounter [id number] /2020 [facility] [place] [address]-8.61 Diagnos DOMINGUEZ,BRA 07/09 07/09 [place] [facility] [employer] PRESIDENT [id number] is: DEN L /2020 [facility] V A 15 MIN ICD-10- HCS CM Z51.81 Encount er for therape utic drug level monitor ing<br/ >with Provide r Comment s: Encount er for Therape utic Drug Level Monitor ing THERAPEUTI 73754-7.61 Diagnos KAREN GALAN 07/09 07/09 [place] [id number] is: TIFFANY Mosley /[facility] ICD-10- HCS CM Z74.09 Other reduced mobilit y
w ith Provide r Comment s: Reduced Mobilit y Inpatient 58076-0.61 07/09 07/09 [place] Encounter [id number] /2020 [facility] Inpatient 02429-6.61 07/09 07/09 [place] Encounter [id number] /2020 [facility] Inpatient 71839-5.61 07/09 07/09 [place] Encounter [id number] /2020 [facility] Inpatient 00890-4.61 07/10 07/10 [place] Encounter [id number] /2020 [facility] Inpatient 77230-3.61 SYSTEM,CIS 07/10 07/10 [place] Encounter [id number] -ARK /2020 [facility] Inpatient 77547-4.61 07/10 07/10 [place] Encounter [id number] /2020 [facility] [address]-7.61 Diagnos LEE, 07/10 07/10 [place] PARTS DESIGNER [id number] is: ARJUN Wang /2020 [facility] SECURITIES SUPERVISOR ICD-10- HCS INDIVIDU CM Z71.81 Spiritu al or religio us weight loss counselor ing<br/ >with Provide r Comment s: Spiritu al or religio us weight loss counselor ing Inpatient 08955-2.61 07/10 07/10 [place] Encounter [id number] /2020 [facility] Inpatient 55014-2.61 07/10 07/10 [place] Encounter [id number] /2020 [facility] Inpatient 98119-9.61 07/11 07/11 [place] Encounter [id number] /2020 [facility] Inpatient 73458-1.61 SYSTEM,CIS 07/11 07/11 [place] Encounter [id number] -ARK /2020 [facility] Inpatient 10274-7.61 07/11 07/11 [place] Encounter [id number] /2020 [facility] Inpatient 42907-2.61 07/11 07/11 [place] Encounter [id number] /2020 [place] [facility] [place] [place] [address]-1.61 Diagnos SONI 07/11 07/11 [place] DESIGNER 8.58674344 is: -MAURICIO,STEP /2020 [facility] [place] SECURITIES SUPERVISOR ICD-10- HANIE N HCS INDIVIDU CM Z71.81 Spiritu al or religio us weight loss counselor ing<br/ >with Provide r Comment s: Spiritu al or religio us weight loss counselor ing Inpatient 63968-6.61 07/12 07/12 [place] En[place] [id number] /[facility] Inpatient 03623-2.61 07/12 07/12 [place] Encounter [id number] /2020 [facility] Inpatient 84681-4.61 SYSTEM,CIS 07/12 07/12 [place] Encounter [id number] -ARK /2020 [facility] Inpatient 65311-0.61 07/12 07/12 [place] Encounter [id number] /2020 [facility] Inpatient 22469-9.61 07/12 07/12 [place] Encounter [id number] /2020 [facility] THERAPEUTI 72799-6.61 Diagnos ANGELIA,AL 07/12 07/12 [place] 8.40567339 is: TIFFANY C /2020 [facility] ICD-10- HCS CM Z74.09 Other reduced mobilit y
w ith Provide [place]: [place] [address]-7.61 Diagnos LYNDON,BR 07/12 07/12 [place] PARTS DESIGNER [id number] is: UCE C /2020 [facility] A SECURITIES SUPERVISOR ICD-10- HCS INDIVIDU CM Z71.81 Spiritu al or religio us weight loss counselor ing<br/ >with Provide r Comment s: Spiritu al or religio us weight loss counselor ing Inpatient 14527-3.61 0507/12 [place] Encounter [id number] /2020 [facility] Inpatient 93569-3.61 07/12 07/12 [place] Encounter [id number] /2020 [facility] Inpatient 68226-6.61 07/13 07/13 [place] Encounter [id number] /2020 [facility] Inpatient 37745-1.61 SYSTEM,CIS 07/13 07/13 [place] Encounter [id number] -ARK /2020 [facility] Inpatient 52903-6.61 07/13 07/13 [place] Encounter [id number] /2020 [facility] Inpatient 63594-8.61 07/13 07/13 [place] Encounter [id number] /2020 [facility] THERAPEUTI 23937-4.61 Diagnos MCCONN,COLETTE 07/13 07/13 [place] [id number] is: MARIAELENA PUGH /2020 [facility] ICD-10- HCS CM Z74.09 Other reduced mobilit y
w ith Provide r Comment s: Reduced Mobilit y Inpatient 51164-1.61 07/13 07/13 [place] Encounter [id number] /2020 [facility] Inpatient 52010-4.61 07/13 07/13 [place] Encounter [id number] /2020 [facility] Inpatient 12272-5.61 07/13 07/13 [place] Encounter [id number] /2020 [facility] Inpatient 15638-4.61 07/14 07/14 [place] Encounter [id number] /2020 [facility] Inpatient 27297-5.61 SYSTEM,CIS 07/14 07/14 [place] Encounter [id number] -ARK /2020 [facility] Inpatient 08127-4.61 07/14 07/14 [place] Encounter [id number] /2020 [facility] Inpatient 71225-3.61 0507/14 [place] Encounter [id number] /2020 [facility] Inpatient 49054-1.61 Rajiv BHAKTA 07/14 07/14 [place] Encounter [id number] EN M /2020 [facility] Inpatient 48530-0.61 07/14 07/14 [place] Encounter [id number] /2020 [facility] Inpatient 03782-7.61 07/14 07/14 [place] Encounter [id number] /2020 [facility] Inpatient 29398-1.61 07/14 07/14 [place] Encounter [id number] /2020 [facility] [facility] [place] [place] [address]-6.61 Diagnos LYNDON,BR 07/14 07/14 [place]S DESIGNER 8.36688005 is: NATHALIE Mosley /2020 [facility] 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
w ith Provide r Comment s: Reduced Mobilit y Inpatient 94514-4.61 07/14 07/14 [place] Encounter [id number] /2020 [facility] Inpatient 76707-8.61 07/14 07/14 [place] Encounter [id number] /2020 [facility] Inpatient 23574-1.61 07/15 07/15 [place] Encounter [id number] /2020 [facility] Inpatient 68380-1.61 07/15 07/15 [place] Encounter [id number] /2020 [facility] Inpatient 45936-9.61 07/15 07/15 [place] Encounter [id number] /2020 [facility] Inpatient 87280-0.61 SYSTEM,CIS 07/15 07/15 [place] Encounter [id number] -ARK /2020 [facility] SELF CARE 79917-0.61 Diagnos COLETTE DAVIS 07/15 07/15 [place] MNGMENT 8.45632176 is: MARIAELENA PUGH /2020 [facility] ICD-10- HCS CM Z74.09 Other reduced mobilit y
w ith Provide r Comment s: Reduced Mobilit y Inpatient 40435-3.61 07/15 07/15 [place] Encounter [id number] /2020 [facility] Inpatient 63694-4.61 07/15 [place] Encounter [id number] /2020 [facility] Inpatient 91054-4.61 07/15 07/15 [place] Encounter [id number] /2020 [facility] Outpatient 57502-0.61 IZABELLA LOZAON 07/15 [place] Encounter [id number] STIN C /2020 [facility] Outpatient 27141-0.61 07/19 [place] En[place] [id number] [facility] DRAW BLOOD 84020-5.61 Diagnos Rajiv HIRSCH 07/22 [place] OFF VENOUS 8.64808830 is: TRAN 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
with Provide r Comment s: Maligna nt neoplas m of lower lobe of right lung (SCT 2270844 05) Outpatient 37103-3.61 05/ [place] Encounter [id number] /2020 [facility] Outpatient 98235-2.61 05 [place] Encounter [id number] /2020 [facility] Outpatient 59085-7.61 08/02 [place] Encounter [id number] /2020 [facility] Outpatient 53937-608/02 [place] Encounter [id number] /2020 [facility] Outpatient 06818-361 08/04 [place] Encounter [id number] /2020 [facility] Outpatient 87193-961 SYSTEM,CIS 08/04 [place] Encounter [id number] -AR [facility] Outpatient 98175-261 08/04 [place] Encounter [id number] /2020 [facility] Outpatient 85502-3 SYSTEM,CIS 08/04 [place] Encounter [id number] -ARK [facility] Outpatient 34246-261 CONINE,IMELDA 08/04 [place] Encounter [id number] MARLENY J [facility] EMERGENCY 54334-261 Diagnos 08/04 [place] DEPT VISIT [id number] is: /2020 [facility] ICD-10- [facility] CM R42 Dizzine ss and giddine ss
with Provide r Comment s: Dizzine ss and Giddine ss Outpatient 37104-661 SARAH LOPEZ 08/10 [place] Encounter [id number] [facility] OFFICE O/P 55272-961 Diagnos JACKIE,LA 08/10 [place] EST MOD 8.25924842 is: INE E /2020 [facility] 30-39 MIN ICD-10- HCS CM I48.91 Unspeci fied atrial fibrill ation<b r/>with Provide r Comment s: Atrial fibrill ation (SNOMED CT 6203341 4) Outpatient 66654-5.61 08/16 [place] Encounter [id number] /2020 [facility] Outpatient 86082-261 Diagnos JACKIE,LA 08/17 [place] Encounter [id number] is: INE E /2020 [facility] ICD-10- HCS CM I48.91 Unspeci fied atrial fibrill ation<b r/>with Provide r Comment s: Atrial fibrill ation (SCT 7422389 4) OFFICE O/P 39440-0. 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 PERALTA,CAT 08/25 [place] Encounter [id number] HERINE [facility] HC PRO 23094-6.61 TEVIN Steven 08/30 [place] PHONE CALL 8.10958352 is: MARÍA J [facility] 5-10 MIN ICD-10- HCS CM Z71.89 Other specifi ed weight loss counselor ing<br/ >with Provide r Comment s: Other specifi ed weight loss counselor ing OFFICE 42916-1.61 Surinder Mcnamara 08/31 [place] CONSULTATI 8.27786948 is: ARIA T [facility] [place] ICD-10- HCS CM I48.91 Unspeci fied atrial fibrill ation<b r/>with Provide r Comment s: Atrial fibrill ation (SCT 1554632 4) Outpatient 20924-3 ADRIEL WADSWORTH 08/31 [place] Encounter [id number] [facility] ELECTROCAR Diagnos MAY,SE 09/02 [place] DIOGRAM 8.63179000 is: LMA D [facility] COMPLETE ICD-10- HCS CM Z13.6 Encount er for screeni ng for cardiov ascular disorde rs
with Provide r Comment s: Encount er for Screeni ng for Cardiov ascular Disorde rs OFFICE Diagnos GLAUSER,NO 09/02 [place] CONSULTATI 8.70287601 is: RA N [facility] ICD-10- HCS CM I48.91 Unspeci fied atrial fibrill ation<b r/>with Provide r Comment s: Atrial fibrill ation (SCT 4702464 4) OFFICE O/P Diagnos ALICE,NO 09/03 [place] EST [place] 8.31107904 is: JESIKA [facility] A 40-54 MIN ICD-10- HCS CM R21 Rash and other nonspec ific skin eruptio n
w ith Provide r Comment s: Rash and other Nonspec ific Skin Eruptio n Outpatient 91181-5 Diagnos CLAUDIA WRIGHT 09/03 [place] Encounter [id number] is: CA [facility] ICD-10- HCS CM R06.83 Snoring
wi th Provide [place]: [place] [address]-9 Diagnos JASON RANDALL 09/09 [place] DIG 8.44073097 is: STIN M [facility] ASSMT&MGMT ICD-10- HCS 5-10 CM Z79.01 snf (curren t) use of anticoa gulants
wi th Provide r Comment s: snf (curren t) use of anticoa gulants Outpatient 74379-3 IZABELLA OTERO 09/09 [place] Encounter [id number] AN [facility] HCS Outpatient 38627-3.61 09/15 [place] Encounter [id number] /2020 [facility] HC PRO Diagnos BHAVIN 09/15 [place] PHONE CALL 8.90660026 is: YVETTE M [facility] 11-20 MIN ICD-10- HCS CM Z71.89 Other specifi ed weight loss counselor ing<br/ >with Provide r Comment s: Other specifi ed weight loss counselor ing [place] 50759-0.61 Diagnos BHAVIN 09/20 [place] PHONE CALL 8.79695230 is: YVETTE M [facility] 5-10 MIN ICD-10- HCS CM Z71.89 Other specifi ed weight loss counselor ing<br/ >with Provide r Comment s: Other specifi ed weight loss counselor ing Outpatient 12449-4.61 Diagnos MEAGAN, 09/21 [place] Encounter [id number] is: JOHN K /2020 [facility] [place] ICD-10- HCS CM R21 Rash and other nonspec ific skin eruptio n
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
with Provide r Comment s: Obstruc tive sleep apnea (adult) (pediat ashvin) Outpatient 79608-5.61 09/30 [place] Encounter [id number] [facility] PULMONARY 80661-9.61 Diagnos YUE, 10/05 [place] SERVICE/FL 8.14868841 is: KIZZY [facility] OCEDURE ICD-10- HCS CM G47.33 Obstruc tive sleep apnea (adult) (pediat ashvin)
with Provide r Comment s: Obstruc tive sleep apnea of adult (SNOMED CT 4576417 611695) Outpatient 94716-110/06 [place] Encounter [id number] /2021 [facility] 05781-9 Diagnos JACKIE,LA 10/06 [place] Encounter [id number] is: CHAPO E [facility] ICD-10- HCS CM G47.33 Obstruc tive sleep apnea (adult) (pediat ashvin)
with Provide r Comment s: Obstruc tive sleep apnea of adult (SCT 6680590 426565) Outpatient 29303-1.61 Diagnos ALICE,NO 10/07 [place] Encounter [id number] is: JARETT S [place] ICD-10- HCS CM R21 Rash and other nonspec ific skin eruptio n
w ith Provide r Comment s: Rash and other Nonspec ific Skin Eruptio n OFFICE O/P 80544-5 Diagnos ALICE,NO 10/08 [place] EST LOW 8.85730914 is: [facility] 20-29 MIN ICD-10- HCS CM B86 Scabies
wi th Provide r Comment s: Scabies ELECTROCAR 52420-5 Diagnos VI GARAY 10/08 [place] DIOGRAM 8.16877778 is: REL [facility] COMPLETE ICD-10- HCS CM Z13.6 Encount er for screeni ng for cardiov ascular disorde rs
with Provide r Comment s: Encount er for Screeni ng for Cardiov ascular Disorde rs Outpatient 61085-161 CAMILLACRISTINA 10/08 [place] Encounter [id number] [facility] 06192-161 08/09 [place] En[place] [id number] [facility] Outpatient 42931-8.61 08/10 [place] Encounter [id number] [facility] HC PRO 13597-161 Diagnos JASON RANDALL 10/21 [place] PHONE CALL 8.66988815 is: RODO [facility] [place] 11-20 MIN ICD-10- HCS CM Z79.01 snf () use of anticoa gulants
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
with Provide r Comment s: Maligna nt neoplas m of lower lobe of right lung (SCT 7730490 05) ELECTROCAR Diagnos CHANDRASHE 11/12 [place] DIOGRAM 8.38251157 is: Francisco PEREZ S [facility] COMPLETE ICD-10- HCS CM Z13.6 Encount er for screeni ng for cardiov ascular disorde rs
with Provide r Comment s: Encount er for Screeni ng for Cardiov ascular Disorde rs OFFICE O/P Diagnos GLAUSER,NO 11/12 [place] EST MOD 8.46181359 is: RA N [facility] 30-39 MIN ICD-10- HCS CM I48.91 Unspeci fied atrial fibrill ation<b r/>with Provide r Comment s: Atrial fibrill ation (SCT 6099133 4) DRAW BLOOD Diagnos RYAN BRAVO 11/23 [place] OFF VENOUS 8.79842545 is: OMAND S [facility] DEVICE ICD-10- HCS CM Z45.2 Encount er for adjustm ent and managem ent of VAD<br/ >with Provide r Comment s: Encount er for adjustm ent and managem ent of VAD Outpatient Diagnos JODIE LOUIS 11/23 [place] Encounter 8.93651606 is: PP [facility] ICD-10- HCS CM 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, except renal pelvis< br/>wit h Provide r Comment s: 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, except renal pelvis Outpatient 13409-7.61 11/29 [place] Encounter [id number] [facility] 59309-0.61 12/08 [place] Encounter [id number] [facility] IMMUNIZATI 57622-761 Diagnos TJ SUTTONU 12/27 [place] ON ADMIN 8.50388594 is: IS K [facility] ICD-10- HCS CM Z23 Encount er for immuniz ation<b r/>with Provide r Comment s: Encount er for Immuniz ation Outpatient 77281-761 01/19 [place] Encounter [id number] [facility] OFFICE O/P Diagnos JONATAN SIFUENTES 01/19 [place] EST SF 8.45636127 is: HN D [facility] 10-19 MIN ICD-10- HCS CM C82.90 Follicu lar lymphom a, unspeci fied, unspeci fied site
with Provide r Comment s: Lymphom a (SCT 9847560 07) OFFICE O/P 77577-1 Diagnos HOLLY,SH 01/24 [place] EST HI 8.14966010 is: BONIFACIO D /2020 [facility] 40-54 MIN ICD-10- HCS CM C82.90 Follicu lar lymphom a, unspeci fied, unspeci fied site
with Provide r Comment s: Lymphom a (SCT 4011445 07) Outpatient 56094-0.61 01/28 [place] Encounter [id number] [facility] 60131-5.61 03/16 [place] Encounter [id number] /2021 [facility] Out[facility] 90404-7.61 03/23 [place] Encounter [id number] [facility] DX BONE 02895-461 Diagnos BRAVO,ARJ 03/25 [place] MARROW 8.22566726 is: OMAND S /2021 [facility] BIOPSIES ICD-10- HCS CM Z45.2 Encount er for adjustm ent and managem ent of VAD<br/ >with Provide r Comment s: Encount er for adjustm ent and managem ent of VAD Outpatient 30638-6.61 04/18 [place] Encounter [id number] /2021 [facility] Out[facility] 39415-8.61 05/03 [place] Encounter [id number] /2021 [facility] Outpatient 23775-5.61 05/05 [place] Encounter [id number] /2021 [facility] Outpatient 12972-8.61 05/05 [place] Encounter [id number] /2021 [facility] Outpatient 31307-5.61 03/ [place] Encounter [id number] /2021 [facility] OFFICE O/P 82418-1.61 Diagnos JONATAN SIFUENTES 05/16 [place] EST SF 8.71152228 is: HN D [facility] 10-19 MIN ICD-10- HCS CM Z45.2 Encount er for adjustm ent and managem ent of VAD<br/ >with Provide r Comment s: Encount er for adjustm ent and managem ent of VAD ELECTROCAR 79904-2.61 Diagnos MARINA BROWN 05/20 [place] DIOGRAM 8.75056783 is: NZI [facility] COMPLETE ICD-10- HCS CM Z13.6 Encount er for screeni ng for cardiov ascular disorde rs
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 (SCT 1271309 5) DRAW BLOOD 94165-1.61 Diagnos UBALDOSHYANNE 05/20 [place] OFF VENOUS 8.47565075 is: ERIK [facility] DEVICE ICD-10- HCS CM Z45.2 Encount er for adjustm ent and managem ent of VAD<br/ >with Provide r Comment s: Encount er for adjustm ent and managem ent of VAD Outpatient Diagnos JODIE LOUIS 05/24 [place] Encounter 8.06736022 is: PP [facility] ICD-10- HCS CM 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
with Provide r Comment s: Lymphom a (SCT 4237010 07) PSYTX W PT Diagnos LUNA CORREA 06/10 [place] 30 MINUTES 8.79659181 is: ATHER R /2021 [facility] ICD-10- HCS CM G47.33 Obstruc tive sleep apnea (adult) (pediat ashvin)
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
with Provide r Comment s: Periphe ral Vascula r Disease , Unspeci fied OFFICE O/P 97770-5.61 Diagnos PECK 06/29 [place] EST MOD 8.35791323 is: NNIS /2021 [facility] [place] 30-39 MIN ICD-10- HCS CM G47.33 Obstruc tive sleep apnea (adult) (pediat ashvin)
with Provide r Comment s: Obstruc tive sleep apnea of adult (SCT 3677624 [id number]) DRAW BLOOD 48892-1.61 Diagnos JAZMINE SANCHEZ 07/13 [place] OFF VENOUS [id number] is: [facility] DEVICE ICD-10- HCS CM Z45.2 Encount er for adjustm ent and managem ent of [facility]<br/ >with Provide r Comment s: Encount er for adjustm ent and managem ent of [facility] Outpatient 90545-7.61 07/24 [place] En[place] [id number] [facility] 17598-8.61 08/04 [place] Encounter [id number] /[facility] 31189-7.61 08/16 [place] Encounter [id number] /[facility] EMERGENCY 75209-6.61 Diagnos ALLA REYES 08/22 [place] DEPT VISIT [id number] is: [facility] ICD-10- HCS CM J20.9 Acute bronchi tis, unspeci fied
with Provide r Comment s: Acute Bronchi tis, unspeci fied Outpatient 93433-1.61 08/22 [place] Encounter [id number] /[facility] Out[facility] 39867-5.61 KAMAAL LIGHT 08/30 [place] Encounter [id number] SAMMIE S OL IS [facility] Outpatient 90171-1.61 09/01 [place] Encounter [id number] /[facility] Outpatient 88604-6.61 TOMÁS MEJIA 09/05 [place] Encounter [id number] [place] [facility] ADM 62316-1.61 Diagnos Amanda CARPENTER 09/15 [place] SARSCV2 [id number] is: NNA E [facility] 30MCG ICD-10- HCS TRS-SUCR B CM Z23 Encount er for immuniz ation<b r/>with Provide r Comment s: Encount er for Immuniz ation DRAW BLOOD 98278-8.61 Diagnos UBALDOSHYANNE 09/15 [place] OFF VENOUS [id number] is: ERIK [place] DEVICE ICD-10- HCS CM Z45.2 Encount er for adjustm ent and managem ent of VAD<br/ >with Provide r Comment s: Encount er for adjustm ent and managem ent of [facility] Outpatient [id number] 09/15 [place] Encounter [id number] [facility] HC PRO 61254-6 Diagnos NORDLINDER 10/03 [place] PHONE CALL [id number] is: JOSE CARLOS S /2021 [place] 5-10 MIN ICD-10- HCS CM Z71.89 Other specifi ed weight loss counselor ing<br/ >with Provide r Comment s: Other specifi ed weight loss counselor ing Outpatient 93211-4.61 SIELUIT,KR 10/03 [place] Encounter [id number] ISTEN L JARETT S [facility] Outpatient 64698-9.61 SIEWERT,KR 10/03 [place] Encounter [id number] ISTEN L JARETT S [facility] Outpatient 09594-8.61 SIEWERT,KR 10/04 [place] Encounter [id number] [facility] L [facility] [facility] Out[facility] [id number] 10/12 [place] Encounter [id number] /2022 [facility] Outpatient 48355-5.61 [place] 10[place]12 [place] Encounter [id number] INE E [facility] Outpatient 26919-1.61 Diagnos [place] 10/13 [place] Encounter [id number] is: INE E [facility] [place] ICD-10- HCS CM C71.9 Maligna nt neoplas m of brain, unspeci fied
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
with Provide r Comment s: Maligna nt neoplas m of lower lobe of right lung (SCT [id number] 05) Outpatient [id number] TEVIN SEXTON 10/19 [place] Encounter [id number] MARÍA J [facility] Outpatient 07498-5. MIGUELITO HEWITT 10/21 [place] Encounter [id number] KIRA [facility] Outpatient [id number] 10/24 [place] Encounter [id number] [facility] Outpatient 87221-8. 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
with Provide r Comment s: Maligna nt neoplas m of lower lobe of right lung (SCT [id number] 05) Outpatient [id number] 08/30 [place] Encounter [id number] 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 Social History Type Response Date Comment Source Tobacco smoking status [facility] QU[facility] 15 YRS 05/26/2021 [facility] NHIS OR MORE History of tobacco use [facility] FORMER USER 05/26/2021 [facility] History of tobacco use [facility] FORMER USER 07/05/2020 [facility] 15 YRS History of tobacco use FORMER TOBACCO USER 7Y 04/16/2017 [facility] OR GREATER History of tobacco use FORMER TOBACCO USER 7Y 06/09/2016 [facility] OR GREATER History of tobacco use FORMER TOBACCO USER 7Y 05/06/2015 [facility] OR GREATER Plan of Care List of future care activities from [facility] facilities. Additional future care activities may be listed in the Assessment and Plan section. Date/Time Care Activity Care Activity Detail Facility 11/17/2021 AMBULATORY - SURGERY AMBULATORY - SURGERY [facility] Advance Directives List of completed, amended, or rescinded Advance Directives on record at [facility] facilities. An actual copy of the Directive is not included. Date Advance Directive Provider Source 07/24/2021 ADVANCE DIRECTIVE [employer] [facility]
--- OUTSIDE RECORDS SUMMARY | 2021-11-18 09:09 | XMS_ITS | Encounter Summary ---
:1945 Author Organization [facility] Address [address] [place] [id number] Support Name Relationship Address Phone SILKE LOCKWOOD Unavailable [id number] [place] [address] SILKE LOCKWOOD Unavailable [id number] [address] Insurance Providers: All historical and current Section Date Range: From patient's date of to the date document was created.This section includes the names of all active insurance providers for the patient. Insurance Type of Plan Start of End of Group Member Insurance Policy P atient's Provider Coverage Name Policy Policy Number ID Provider's Victor's Relationship Coverage Coverage Telephone Name to Policy Number Victor [place] Jun 10, [id number] [facility] (WNR) ADVANTAGE (WNR) 2019 8 [id number] [phone] ,ANDER Bennett [place] Jun 10, [id number] [facility] (WNR) ADVANTAGE (WNR) 2018 3 [id number] [phone] ,ANDER Bennett Selected Encounter This section includes the information on record at [place] for the Encounter. Date/Time Encounter Type Encounter Description Reason Provider Source Aug 22, 2021 03:44 Outpatient Encounter CLINICAL PHARMACY PM IHE Encounter Template Text not used by [place] Plan of Treatment: Future Appointments (+ 6 months) and Future Tests (+/- 45 days) The Plan of Treatment section includes future care activities for the patient from all [place] treatmentfacilities. This section includes future appointments and future orders which are active, pending orscheduled.Future Appointments This section includes appointments that were scheduled to occur 6 months from the date of the Encounter, up to a maximum of 20 appointments. The data comes from all [place] treatment facilities. Appointment Date/Time Appointment Type Appointment Facili ty Name Sep 15, 2021 09:00 AM AMBULATORY - MEDICINE [facility] Sep 15, 2021 09:30 AM AMBULATORY - MEDICINE [facility] Sep 15, 2021 10:00 AM AMBULATORY - NONE [facility] Oct 03, 2021 01:39 PM AMBULATORY - NONE [facility] Oct 03, 2021 01:42 PM AMBULATORY - NONE [facility] Oct 04, 2021 07:51 PM AMBULATORY - NONE [facility] Oct 14, 2021 10:30 AM AMBULATORY - MEDICINE [facility] Oct 25, 2021 12:27 PM AMBULATORY - NONE [facility] Oct 27, 2021 08:30 AM AMBULATORY - MEDICINE [facility] Oct 27, 2021 09:00 AM AMBULATORY - NONE [facility] Nov 02, 2021 09:00 AM AMBULATORY - MEDICINE [facility] Nov 15, 2021 10:00 AM AMBULATORY - NONE [facility] Nov 17, 2021 10:00 AM AMBULATORY - SURGERY [facility] S Dec 15, 2021 04:00 PM AMBULATORY - MEDICINE [facility] Lab Results: +/- 30 days of the encounter This section includes the Chemistry and Hematology Lab Results on record with [place] for the patient. Radiology Reports and Pathology Reports are provided separately, in subsequent sections.Lab Results This section contains the Chemistry/Hematology Results that were resulted 30 days before or 30 daysafter the date of the Encounter. Date/Time Source Result Type Result - Unit Interpretation Reference Range Comment Sep 15, 2021 10:02 AM [facility] POC CREATININE Specim en Type: BLOOD No comment enter ed. Ordering Provid er: LIAM MEJIA Report Released Date/Time: Sep 15, 2021 10:02 AM Reporting Lab: [facility] [address] [facility] [address] Performing Lab: [facility] [address] [facility] [address] POC CREATININE 1.2 0.6-1.3 Sep 15, 2021 09:35 AM [facility] EXTRA MINT TUBE Specim en Type: PLASMA No comment enter ed. Ordering Provid er: LIAM MEJIA Report Released Date/Time: Sep 15, 2021 09:39 AM Reporting Lab: [facility] [address] [facility] [address] Performing Lab: [facility] [address] [facility] [address] EXTRA MINT TUBE RECEIVED Sep 15, 2021 09:35 AM [facility] RETICS Specim en Type: BLOOD Comment: Automsegun sy Differential Performed Ordering Provid er: CHACHO GOMEZ Report Released Date/Time: May 21, 2021 03:59 PM Reporting Lab: [facility] [address] [facility] [address] Performing Lab: [facility] [address] [facility] [address] ABS RETIC 0.0751 0.0300-0.1000 .RETICULOCYTE 1.78 0.6-2.0 IMMATURE RETIC 12.5 1.0-14.0 .RETICULOCYTE HE 34.2 28.2-36.6 Sep 15, 2021 [facility] COMPREHENSIVE METABOLIC Spec imen Type: PLASMA 09:35 AM PANEL+MG Comment: Automsegun sy Differential Performed Ordering Provid er: CHACHO GOMEZ Report Released Date/Time: May 21, 2021 03:59 PM Reporting Lab: [facility] [address] [facility] [address] Performing Lab: [facility] Sep 15, 2021 [facility] LD,TOTAL Specimen Typ e: PLASMA 09:35 AM No comment enter ed. Ordering Provid er: CHACHO GOMEZ Report Released Date/Time: May 21, 2021 03:59 PM Reporting Lab: [facility] [address] [facility] [address] Performing Lab: [facility] [address] [facility] [address] LD,TOTAL 148 125-220 Sep 15, 2021 09:35 AM [facility] FOLATE Specim en Type: SERUM No comment enter ed. Ordering Provid er: CHACHO GOMEZ Report Released Date/Time: May 21, 2021 03:59 PM Reporting Lab: [facility] [address] [facility] [address] Performing Lab: [facility] [address] [facility] [address] FOLATE >20.0 >7.0 Sep 15, 2021 09:35 AM [facility] IRON GROUP Specim en Type: SERUM No comment enter ed. Ordering Provid er: CHACHO GOMEZ Report Released Date/Time: May 21, 2021 03:59 PM Reporting Lab: [facility] [address] [facility] [address] Performing Lab: [facility] [address] [facility] [address] IRON 71 65-175 TIBC,CALCULATED 258 250-425 FERRITIN 195.5 21.8-274.7 IRON SATURATION 28 20-50 TRANSFERRIN [phone] Sep 15, 2021 09:35 AM [facility] B 12 Specim en Type: SERUM No comment enter ed. Ordering Provid er: CHACHO GOMEZ Report Released Date/Time: May 21, 2021 03:59 PM Reporting Lab: [facility] [address] Performing Lab: [facility] [address] B 12 [phone] Sep 15, 2021 09:35 [facility] EXTRA PURPLE TUBE Specime n Type: BLOOD AM No comment enter ed. Ordering Provid er: LIAM MEJIA Report Released Date/Time: Sep 15, 2021 09:39 AM Reporting Lab: [facility] [address] Performing Lab: [facility] [address] EXTRA PURPLE TUBE RECEIVED Sep 15, 2021 [facility] LIPID PANEL,NON-FASTING Spec imen Type: PLASMA 09:35 AM Comment: Automsegun sy Differential Performed Ordering Provid er: LIAM MEJIA Report Released Date/Time: May 29, 2021 05:51 PM Reporting Lab: [facility] [address] Performing Lab: [facility] Sep 15, 2021 [facility] CBC & DIFF Specimen Typ e: BLOOD 09:35 AM Comment: Automa kerrie Differential Performed Ordering Provid er: CHACHO GOMEZ Report Released Date/Time: May 21, 2021 03:59 PM Reporting Lab: [facility] [address] [facility] [address] Performing Lab: [facility] [address] [facility] [address] WBC 7.54 4.0-11.0 RBC 4.22 L 4.6-6.2 HGB 12.8 L 13.5-17.9 HCT 39.1 L 41-54 MCV 92.7 80-100 MCH 30.3 27-33 MCHC 32.7 32.0-37.5 PLT 237 150-400 MPV 9.0 7.4-10.4 NEUT 61.0 LYMPHS 24.3 MONO 10.5 EOSINO 3.4 BASO 0.5 RDW 14.5 11.5-14.5 ABS LYMPH 1.83 1.0-4.0 ABS MONO 0.79 0.1-1.0 ABS NEUT 4.60 2.0-7.7 ABS EOS 0.26 0-0.5 ABS BASO 0.04 0-0.2 IG(META,MYELO,PRO) 0.3 ABS IMMATURE GRAN 0.02 0-0.1 .RETICULOCYTE HE 34.2 28.2-36.6 Sep 15, 2021 09:35 [facility] TSH W/REFLEX TO FREE Spec imen Type: PLASMA AM T4 No comment enter ed. Ordering Provid er: LIAM MJEIA Report Released Date/Time: May 29, 2021 05:51 PM Reporting Lab: [facility] [address] Performing Lab: [facility] [address] TSH 1.72 0.35-4.94 Aug 22, 2021 [facility] COVID-19 AND FLU/RSV DIAG Sp ecimen Type: NASOPHARYNGEAL 11:47 AM PANEL(CEPHEID) Comment: Austin cameron GeneXpert (618) Ordering Provid er: CECILIA REYES Report Released Date/Time: Aug 22, 2021 11:33 AM Reporting Lab: [facility] [address] Performing Lab: [facility] [address] COVID-19 (CEPHEID) Not Detected Not Dete cted INFLUENZA A (PCR) Not Detected Not Detec kerrie INFLUENZA B (PCR) Not Detected Not Detec kerrie RSV (PCR) Not Detected Not Detected Vital Signs: All taken on the encounter date This section contains inpatient and outpatient Vital Signs collected on the date of the Encounter. Date/Time Temperature Pulse Blood Respiratory SP02 Pain Height Weight Arslan dy Source Pressure Rate Mass Index Aug 22, 98.1 F 90 130/58 20 /min 0 [place] 2021 11:14 /min mm[Hg] [facility] Social History: Smoking Status (Most current) and Tobacco Use (All prior to encounter date) This section includes the most current, and the historical, smoking and tobacco-related health factors from the [place] facility where the Encounter took place.Current Smoking Status This section includes the most current smoking, or tobacco-related health factor, from the [place] facility where the Encounter took place. Date/Time Current Smoking Status Comment Facility May 26, 2021 03:30 PM VA-TOBACCO QUIT 15 YRS OR MORE [facility] Tobacco Use History This section includes a history of the smoking, or tobacco- related health factors, that were collected on or before the date of the Encounter. The data comes from the [facility] where the Encounter took place. Date/Time Smoking Status/Tobacco Use Comment Facil ity May 26, 2021 03:30 PM VA-TOBACCO QUIT 15 YRS OR MORE [facility] Jul 05, 2020 06:42 PM VA-TOBACCO FORMER USER [facility] Jan 09, 2018 02:01 PM VA-TOBACCO FORMER USER [facility] Jan 09, 2018 02:01 PM VA-TOBACCO QUIT 5 TO < 15 YRS [facility] Apr 16, 2017 10:17 AM FORMER TOBACCO USER 7Y OR GREATER [facility] Jun 09, 2016 10:03 AM FORMER TOBACCO USER 7Y OR GREATER [facility] May 06, 2015 08:19 AM FORMER TOBACCO USER 7Y OR GREATER [facility] Advance Directives: All historical and current Section Date Range: From patient's date of to the date document was created. This section includes ALL of a patient's completed or amended [place] Advance and Rescinded Directives. The entries below indicate that a directive exists for the patient, but an actual copy is not included with this document. The data comes from all [facility]. Date Advance Directives Provider Source July 24, 2021 ADVANCE DIRECTIVE PAPA LEWIS [facility] July 24, 2021 ADVANCE DIRECTIVE DISCUSSION PAPA LEWIS [facility] Radiology Reports: +/- 30 days of the encounter Radiology Reports For cases when an order for radiology services may have been completed prior to the date of the Encounter, the report list includes the Radiology Reports that were completed up to 30 days before date of the Encounter. For cases when an order for radiology services may have been completed after the date of the Encounter, the report list also includes the Radiology Reports that were completed up to 30days after date of the Encounter. The data comes from all [place] treatment facilities. Date/Time Radiology Report Provider Source Sep 15, 2021 10:[address] (CAP) CHEST/ABD/PELVIS (P): Dimitri DACOSTA [facility] ANDER LOCKWOOD [id number] -[birth year], [birth year] 8 M Exm Date: SEP 15, 2021@10:12 Req Phys: PATRICIA,CHACHOZACH Ramachandran Loc: [facility] HEM ONC PHON E PATRICIA (Req'g Img Loc: CT IMAGING Service: Unknown (Case [id number] COMPLETE) CT (CAP) CHEST W CONTRAST ( CT Detailed) CPT:18873 Contrast Media : Non-ionic Iodinated Reason for Study: follicular lymphoma, NSCLC, R renal lesion (Case [id number] COMPLETE) CT (CAP) ABDOMEN/PELVIS W C ONTRAS(CT Detailed) CPT:61345 Contrast Media : Non-ionic Iodinated Clinical History: IS NOT under investigation for COVID-19 or is COVID-[address] few days before the hem onc phone visit. Monitiroing of slow growing follicular lymphoma . Monitoring of right renal lesion. And monitroing of right ape x lesion that is visible since 02/2020 (one months after the res ect of the pt RLL lung cancer in 01/2020). Responsible provider n gregory and phone number to notify for critical findings if other than user placing the order and pager listed below: User placing orders pager: [phone] LAST 3: Collection DT Specimen Test Name Result Units Ref Range 05/20/2021 09:35 PLASMA CREATIN INE 1.2 mg/dL 0.7 - 1.2 01/19/2021 08:45 PLASMA CREATININE 1.2 mg/dL 0.7 - 1.2 11/23/2020 09:15 PLASMA CREATININE 1.2 mg/dL 0.7 - 1.2 05/20/2021 09:35 PLASMA CREAT EGFR(CKD-EP 6 3 Ref: >=60 01/19/2021 08:45 PLASMA ESTIMATED GFR (eGF 59 L Ref: >=60 11/23/2020 09:15 PLASMA ESTIMATED GFR(eGF 59 L Ref: >=60 10/22/2020 14:11 PLASMA ESTIMATED GFR(eGF 59 L Ref: >=60 Allergies: Patient has answered NKA Report Status: Verified Date Reported: SEP 15, 2021 Date Verified: SEP 15, 2021 [facility] E-Sig:/JOSE/JASPREET DACOSTA MD Report: EXAM: CT chest, abdomen, and pelvis with intrav enous contrast. HISTORY: Follicular lymphoma, non-small cell marge ng cancer, right renal lesion. Monitoring of slow-growing follic ular lymphoma. Monitoring a right renal lesion. And monitoring of right apex lesion visible since February 2020 (one month a fter the resection of the patient's right lower lobe lung cancer i n January 2020). TECHNIQUE: Helical CT image data was obtained o f the chest, abdomen, and pelvis with intravenous contrast. Dose: 754 mGy-cm COMPARISON: Prior CT Chest/Abdomen/Pelvis is av ailable for comparison 05/16/2021 FINDINGS: LINES AND TUBES: Right IJ port with the tip at the atriocaval junction. LOWER NECK: The thyroid appears unremarkable. LUNGS AND PLEURA: Surgical changes from a right lower lobectomy. No acute airspace consolidation. Mild periphera l reticulation in the right lung. Mild to moderate centrilobular emphysema. Left apical scarring. There are new subtle pulmonary nodules in the r ight lung base such as the 3 mm nodule on image 228 of series 5 and the 3 mm nodule on image 222 of series 5. Redemonstration of an ill-defined, groundglass nodule in the right apex measuring approximately 1.3 x 0.8 cm on image 57 of series 5, not significantly changed from 05/17/19 22. AXILLAE AND CHEST WALL: No enlarged axillary ly mph nodes by short axis criteria. Bilateral gynecomastia. MEDIASTINUM: The heart is not enlarged. No keith cardial effusion. Esophagus appears unremarkable.. Thoracic aorta and main pulmonary artery diameters are within normal li mits. Calcification of the coronary arteries, great v essels and aorta. Calcification of the aortic valve. No enlarged mediastinal or hilar lymph nodes by short axis criteria. LIVER: No intrahepatic biliary dilation. No foc al hepatic mass. There are several hypodensities in the liver robledo ch as the 11 mm lesion in the left hemiliver on image 258 of se patricia 2. Those hypodensity lesions large enough to characteriz e demonstrate attenuation values consistent with cysts. GALLBLADDER/BILIARY TREE: The common bile duct is not dilated. The gallbladder appears unremarkable. SPLEEN: The spleen is not enlarged. PANCREAS: The pancreatic duct is not dilated. ADRENAL GLANDS: No adrenal nodules KIDNEYS/URETERS: There is no hydronephrosis or hydroureter. Symmetric renal enhancement. No renal calculi. There is subtle hypoenhancement in the lower po le of the right kidney on image 368 of series 2. The region of abnormality is not sufficiently defined to measure precisely, cha veronika the area of abnormal enhancement measures approximately 1 c m in diameter. BLADDER/PELVIC ORGANS: The bladder appears unre markable. Calcified phleboliths in the pelvis. BOWEL/MESENTERY: No dilated loops of small cyn l or colon. The appendix is unremarkable. Sigmoid and descendin g colon diverticulosis without CT evidence for acute di verticulitis. There is fat stranding and mildly enlarged lymp h nodes in the small bowel mesentery. The largest node measure s 7 mm in short axis on image 412 of series 2, unchanged. PERITONEUM/RETROPERITONEUM: No extraluminal bow el gas. No free fluid in the abdomen or pelvis. LYMPH NODES: Enlarged mesenteric lymph nodes as described above. Enlarged left external iliac lymph node measuri ng 22 x 14 mm on image 557 of series 2, previously 17 x 11 mm on 05/16/2021. While not enlarged by short axis criteria, there is i nterval enlargement of additional left pelvic lymph nod es, such as the left common iliac node measuring 9 mm on image 462 of series 2, previously 6 mm. No enlarged retroperitoneal lymph nodes by shor t axis criteria. MAJOR VESSELS: Atherosclerotic calcifications i n the abdomen and pelvis. 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 BONE AND SOFT TISSUE: Multilevel degenerative c hanges in the spine. No aggressive appearing bony lesion. Deg enerative changes of the right hip and left shoulder. Surgical ch anges from left total hip arthroplasty. Impression: 1. Interval enlargement of a left pelvic lymph nodes, suspicious for progression of the patient's known follicul ar lymphoma. 2. Essentially unchanged mesenteric gustavo enlar gement and fat stranding. 3. There are new tiny pulmonary nodules in the right lower lobe measuring up to 3 mm. Recommend short interval follow-up chest CT in 6-8 weeks. 4. Hypoenhancing lesion in the lower pole of th e right kidney is poorly visualized, though suspicious for a smal l renal cell carcinoma. This lesion is more clearly seen on the MR abdomen dated 04/28/2020. This lesion measures approxima tely 1 cm today, which is similar to the size on prior MR. 5. 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 6. Mild to moderate pulmonary emphysema. 7. Surgical changes from right lower lobectomy. 8. Colonic diverticulosis without CT evidence f or acute diverticulitis. Primary Interpreting Staff: JASPREET DACOSTA MD, STAFF NUCLEAR RADIOLOGIST (Silver [facility]) /CPD Aug 22, 2021 12:53 PM CHEST 2 VIEWS PA AND LAT: MARCO A HURTADO [facility] ANDER LOCKWOOD [id number] -AUG 24 [birth year] 8 M Exm Date: AUG 22, 2021@12:53 Req Phys: CECILIA REYES Madie Loc: [facility] EMERGENCY DEP T WALK-IN (Re Img Loc: MAIN X-RAY Service: Unknown (Case [id number] COMPLETE) CHEST 2 VIEWS PA AND LAT (RA D Detailed) CPT:66865 Reason for Study: r/o pneumonia Clinical History: [place] IS NOT under investigation for COVID-19 or is COVID-19 negative cough, fever, chills, h/o lobectomy Responsible provider name and phone number to notify for critical finding s if other than user placing the order and pager listed below: User placing orders pager: LAST CREATININE 1.2 (05/20/21) Report Status: Verified Date Reported: AUG 22, 2021 Date Verified: AUG 22, 2021 [facility] E-Sig:/ES/MARCO A HURTADO DO Report: EXAMINATION: CHEST 2 VIEWS PA AND LAT 08/22/2021 12:53 PM INDICATION: Cough. Fever. Chills. History of lo bectomy. COMPARISON: 08/04/2020, 07/05/2020 FINDINGS: Right chest Port-A-Cath with tip in t he distal SVC. The heart is not enlarged. The spinal contour is st able. Pulmonary vascularity appears normal. No pneumothorax. No pleural effusion. Stable ap pearing sequelae of right lower lobectomy. No lobar con solidation. No overt edema. Degenerative changes left glenohum eral joint. No acute osseous abnormality. Impression: No acute pulmonary process. Primary Interpreting Staff: MARCO A HURTADO DO, RADIOLOGIST (Silver [facility]) /DDS Encounter Notes: All associated encounter notes This section contains the clinical notes associated to the Encounter. Date/Time Encounter Note(s) Provider Source Aug 22, 2021 03:44 PM EDUCATION NOTE: [facility]: EDUCATION MEDICATION INSTRUCTION STANDARD TITLE: EDUCATION NOTE DATE OF NOTE: AUG 22, 2021@15:44 ENTRY DATE: AUG 22, 2021@15:44:56 AUTHOR: JODY ERNST EXP COSIGNER: URGENCY: STATUS: COMPLETED MEDICATION EDUCATION PARTICIPANTS: Patient TEACHING STRATEGY: Face to Face READINESS TO LEARN: No barriers identified LEARNING NEEDS/OBJECTIVES Participant(s) indicates readiness to learn and has been instructed on indications, side effects, and di rections for use. Participant(s) will receive medication informat ion sheets for medications filled. Education included discussion of the following: New medication(s): azithromycin, robitussin AC PATIENT/FAMILY RESPONSE (OUTCOME): Verbalizes cr itical information about the topic FOLLOW-UP RECOMMENDED: None needed Active Outpatient Medications (including Supplie s): Outpatient Medications Status 1) APIXABAN 5MG TAB TAKE ONE TABLET BY MOUTH RAYSA RY 12 ACTIVE HOURS TO PREVENT AND/OR TREAT BLOOD CLOTS 2) ATORVASTATIN CALCIUM 20MG TAB TAKE ONE-HALF T ABLET BY ACTIVE MOUTH AT BEDTIME FOR CHOLESTEROL 3) AZITHROMYCIN 250MG TAB TAKE TWO TABLETS BY MO [facility] ONCE ACTIVE FOR 1 DAY, THEN TAKE ONE TABLET EVERY DAY FOR 4 DAYS FOR BRONCHITIS 4) CODEINE 10/GG 100MG/5ML (ALC-F/SF) LIQ TAKE 1 0 ML BY ACTIVE MOUTH EVERY 6 HOURS NEEDED FOR COUGH 5) DILTIAZEM (EQV-TIAZAC) 180MG 24HR CAP TAKE ON E ACTIVE CAPSULE BY MOUTH EVERY DAY 6) FAMOTIDINE 20MG TAB TAKE ONE TABLET BY MOUTH TWICE A ACTIVE DAY FOR GERD*REPLACES RANITIDINE 7) FOLIC ACID 1MG TAB TAKE ONE TABLET BY MOUTH E VERY DAY ACTIVE FOR CHEMO PREMED 8) OLODATEROL/TIOTROP 2.5MCG/ACTUAT 60D INH INHA LE 2 ACTIVE PUFFS BY INHALATION EVERY DAY TO PREVENT TROUBL E BREATHING 9) PERMETHRIN 5% CREAM APPLY THIN LAYER TOPICALL Y ACTIVE DIRECTED PLEASE APPLY TO ENTIRE SKIN FROM NECK DOWN AND LEAVE ON OVERNIGHT. WASH OFF IN THE MORNING . PLEASE REPEAT 1 WEEK LATER Non-VA Medications Status 1) Non-VA CHOLECALCIF 25MCG (D3-1,000UNIT) TAB 5 0MCG ACTIVE MOUTH EVERY DAY 2) Non-VA MAGNESIUM OXIDE TAB 400MG MOUTH EVERY DAY ACTIVE 3) Non-VA MULTIVITAMIN CAP/TAB 1 TABLET MOUTH ACTIVE 12 Total Medications /es/ JODY KeaneD, BCGP, MSCS Pharmacist Signed: 08/22/2021 15:45
--- OUTSIDE RECORDS SUMMARY | 2021-11-18 09:10 | XMS_ITS | Encounter Summary ---
:1945 Author Organization [facility] Address [address] [place] [address] Support Name Relationship Address Phone SILKE LOCKWOOD Unavailable [id number] [address] SILKE LOCKWOOD Unavailable [phone] [address] Insurance Providers: All historical and current Section [...] Victor [place] Jun 10, [id number] [facility] (WNR) ADVANTAGE (WNR) 2019 8 [id number] [phone] ,ANDER Bennett [place] Jun 10, [id number] [facility] (WNR) ADVANTAGE (WNR) 2018 3 [id number] [phone] ,ANDER Bennett Selected Encounter This section includes the information on record at [place] for the Encounter. Date/Time Encounter Type Encounter Reason Provider Source Description Sep 15, 2021 ADM SARSCV2 GENERAL INTERNAL ICD-10-CM Z23 HUNTER CARPENTER 09:00 AM [facility] Encounter for E B immunization with Provider Comments: Encounter for Immunization IHE Encounter Template Text not used by [facility] Assessments - Encounter Diagnoses This section includes the primary and secondary diagnoses documented for the Encounter. Date/Time Primary/Secondary Diagnosis Name Provider Source Diagnosis Sep 15, 2021 PRIMARY Encounter for HUNTER CARPENTER 09:06 AM immunization E HCS Plan of Treatment: Future Appointments (+ 6 months) and Future Tests (+/- 45 days) The Plan of Treatment section includes future care activities for the patient [facility] This section includes future appointments and future orders which are active, pending orscheduled.Future Appointments This section includes appointments that were scheduled to occur 6 months from the date of the Encounter, up to a maximum of 20 appointments. The data comes from all [facility]. Appointment Date/Time Appointment Type Appointment Facili ty Name Oct 03, 2021 01:39 PM AMBULATORY - NONE [facility] Oct 03, 2021 01:42 PM AMBULATORY - NONE [facility] Oct 04, 2021 07:51 PM AMBULATORY - NONE [facility] Oct 14, 2021 10:30 AM AMBULATORY - MEDICINE [facility] Oct 25, 2021 12:27 PM AMBULATORY - NONE [facility] Oct 27, 2021 08:30 AM AMBULATORY - MEDICINE [facility] Oct 27, 2021 09:00 AM AMBULATORY - NONE [facility] Nov 02, 2021 09:00 AM AMBULATORY - MEDICINE [facility] Nov 15, 2021 10:00 AM AMBULATORY - NONE [facility] Nov 17, 2021 10:00 AM AMBULATORY - SURGERY [facility] Dec 15, 2021 04:00 PM AMBULATORY - MEDICINE [facility] Active, Pending, and Scheduled Orders This section includes a listing of several types of active, pending, and scheduled orders, including clinic medications orders, diagnostic test orders, procedure orders and consult orders; where the start date of the order is 45 days before the date of the Encounter or 45 days after the date of the Encounter. The data comes from all [facility]. Test Date/Time Test Type Test Details Facility Name Oct 14, 2021 10:49 AM Consult Order COMMUNITY CARE-RADIATION [facility] Cons Power System Engineer's Choice Lab Results: +/- 30 days of the encounter This section includes the Chemistry and Hematology Lab Results on record with [place] for the patient. Radiology Reports and Pathology Reports are provided separately, in subsequent sections.Lab Results This section contains the Chemistry/Hematology Results that were resulted 30 days before or 30 daysafter the date of the Encounter. Date/Time Source Result Type Result - Unit Interpretation Reference Range Comment Sep 15, 2021 10:02 AM [facility] POC CREATININE Specim en Type: BLOOD No comment enter ed. Ordering Provid er: LIAM MEJIA Report Released Date/Time: Sep 15, 2021 10:02 AM Reporting Lab: [facility] [address] [facility] [address] Performing Lab: [facility] [address] [facility] [address] POC CREATININE 1.2 0.6-1.3 Sep 15, 2021 09:35 AM [facility] EXTRA MINT TUBE Specim en Type: PLASMA No comment enter ed. Ordering Provid er: LIAM MEJIA Report Released Date/Time: Sep 15, 2021 09:39 AM Reporting Lab: [facility] [address] [facility] [address] Performing Lab: [facility] [address] [facility] [address] EXTRA MINT TUBE RECEIVED Sep 15, 2021 [facility] COMPREHENSIVE METABOLIC Spec imen Type: PLASMA 09:35 AM PANEL+MG Comment: Automsegun sy Differential Performed Ordering Provid er: CHACHO GOMEZ Report Released Date/Time: May 21, 2021 03:59 PM Reporting Lab: [facility] [address] Performing Lab: [facility] Sep 15, 2021 [facility] RETICS Specimen Typ e: BLOOD 09:35 AM Comment: Automa kerrie Differential Performed Ordering Provid er: CHACHO GOMEZ Report Released Date/Time: May 21, 2021 03:59 PM Reporting Lab: [facility] [address] [facility] [address] Performing Lab: [facility] [address] [facility] [address] ABS RETIC 0.0751 0.0300-0.1000 .RETICULOCYTE 1.78 0.6-2.0 IMMATURE RETIC 12.5 1.0-14.0 .RETICULOCYTE HE 34.2 28.2-36.6 Sep 15, 2021 09:35 AM [facility] LD,TOTAL Specim en Type: PLASMA No comment enter ed. Ordering Provid er: CHACHO GOMEZ Report Released Date/Time: May 21, 2021 03:59 PM Reporting Lab: [facility] [address] [facility] [address] Performing Lab: [facility] [address] LD,TOTAL [phone] Sep 15, 2021 09:35 AM [facility] FOLATE Specim en Type: SERUM No comment enter ed. Ordering Provid er: CHACHO GOMEZ Report Released Date/Time: May 21, 2021 03:59 PM Reporting Lab: [facility] [address] [facility] [address] Performing Lab: [facility] [address] FOLATE >20.0 >7.0 Sep 15, 2021 09:35 AM [facility] IRON GROUP Specim en Type: SERUM No comment enter ed. Ordering Provid er: CHACHO GOMEZ Report Released Date/Time: May 21, 2021 03:59 PM Reporting Lab: [facility] [address] [facility] [address] Performing Lab: [facility] [address] IRON 71 65-175 TIBC,CALCULATED 258 250-425 FERRITIN 195.5 21.8-274.7 IRON SATURATION 28 20-50 TRANSFERRIN [phone] Sep 15, 2021 09:35 AM [facility] B 12 Specim en Type: SERUM No comment enter ed. Ordering Provid er: CHACHO GOMEZ Report Released Date/Time: May 21, 2021 03:59 PM Reporting Lab: [facility] [address] [facility] [address] Performing Lab: [facility] [address] B 12 [phone] Sep 15, 2021 [facility] LIPID PANEL,NON-FASTING Spec imen Type: PLASMA 09:35 AM Comment: Dee Pierre Performed Ordering Provid er: LIAM MEJIA Report Released Date/Time: May 29, 2021 05:51 PM Reporting Lab: [facility] [address] Performing Lab: [facility] Sep 15, 2021 [facility] EXTRA PURPLE TUBE Specimen T ype: BLOOD 09:35 AM No comment enter ed. Ordering Provid er: LIAM MEJIA Report Released Date/Time: Sep 15, 2021 09:39 AM Reporting Lab: [facility] [address] [facility] [address] Performing Lab: [facility] [address] EXTRA PURPLE TUBE RECEIVED Sep 15, 2021 09:35 [facility] TSH W/REFLEX TO FREE Spec imen Type: PLASMA AM T4 No comment enter ed. Ordering Provid er: LIAM MEJIA Report Released Date/Time: May 29, 2021 05:51 PM Reporting Lab: [facility] [address] [facility] [address] Performing Lab: [facility] [address] [facility] [address] TSH 1.72 0.35-4.94 Sep 15, 2021 09:35 AM [facility] CBC & DIFF Specim en Type: BLOOD Comment: Automa kerrie Differential Performed Ordering Provid er: CHACHO GOMEZ Report Released Date/Time: May 21, 2021 03:59 PM Reporting Lab: [facility] [address] [facility] [address] Performing Lab: [facility] [address] WBC 7.54 4.0-11.0 RBC 4.22 L 4.6-6.2 [...] GRAN 0.02 0-0.1 .RETICULOCYTE HE 34.2 28.2-36.6 Aug 22, 2021 [facility] COVID-19 AND FLU/RSV DIAG Sp ecimen Type: NASOPHARYNGEAL 11:47 AM PANEL(CEPHEID) Comment: Austin cameron GeneXpert (618) Ordering Provid er: CECILIA REYES Report Released Date/Time: Aug 22, 2021 11:33 AM Reporting Lab: [facility] [address] [facility] [address] Performing Lab: [facility] [address] [facility] [address] COVID-19 (CEPHEID) Not Detected Not Dete cted INFLUENZA A (PCR) Not Detected Not Detec kerrie INFLUENZA B (PCR) Not Detected Not Detec kerrie RSV (PCR) Not Detected Not Detected Immunizations: All administered on the encounter date This section contains immunizations associated to the Encounter. Immunization Series Date Issued Reaction Comments COVID-19 (Fotofeedback), MRNA, LNP-S, 4 Sep 15, 2021 PFR; [id number]; 02/08/2022 PF, 30 MCG/0.3 ML DOSE, PAUL-SUCROSE (AGES 12+ YEARS) Social History: Smoking Status (Most current) and Tobacco Use (All prior to encounter date) This section includes the most current, and the historical, smoking and tobacco-related health factors from the [place] facility where the Encounter took place.Current Smoking Status This section includes the most current smoking, or tobacco-related health factor, from the [place] facility where the Encounter took place. Date/Time Current Smoking Status Comment Facility May 26, 2021 03:30 PM VA-TOBACCO FORMER USER [facility] Tobacco Use History This section includes a history of the smoking, or tobacco- related health factors, that were collected on or before the date of the Encounter. The data comes from the [facility] where the Encounter took place. Date/Time Smoking Status/Tobacco Use Comment [facility] May 26, 2021 03:30 PM VA-TOBACCO QUIT 15 YRS OR MORE [facility] Jul 05, 2020 06:42 PM VA-TOBACCO FORMER USER [facility] Jan 09, 2018 02:01 PM VA-TOBACCO FORMER USER [facility] Jan 09, 2018 02:01 PM VA-TOBACCO QUIT 5 TO < 15 YRS [facility] Apr 16, 2017 10:17 AM FORMER TOBACCO USER 7Y OR GREATER [facility] Jun 09, 2016 10:03 AM FORMER TOBACCO USER 7Y OR GREATER [facility] May 06, 2015 08:19 AM FORMER TOBACCO USER 7Y OR GREATER [facility] Advance Directives: All historical and current Section Date Range: From patient's date of to the date document was created. This section includes ALL of a patient's completed or amended [place] Advance and Rescinded Directives. The entries below indicate that a directive exists for the patient, but an actual copy is not included with this document. The data comes from all [facility]. Date Advance Directives Provider Source July 24, 2021 ADVANCE DIRECTIVE PAPA LEWIS [facility] July 24, 2021 ADVANCE DIRECTIVE DISCUSSION PAPA LEWIS [facility] Radiology Reports: +/- 30 days of [...] the Encounter. The data comes from all [place] treatment facilities. Date/Time Radiology Report Provider Source Sep 15, 2021 10:[address] (CAP) CHEST/ABD/PELVIS (P): Dimitri DACOSTA [facility] ANDER LOCKWOOD [id number] -[birth year] 8 M Exm Date: SEP 15, 2021@10:12 Req Phys: CHACHO GOMEZ Pat Loc: [facility] HEM ONC PHON E PATRICIA (Req'g Img Loc: CT IMAGING Service: Unknown (Case [id number] COMPLETE) CT (CAP) CHEST W CONTRAST ( CT Detailed) CPT:62313 Contrast Media : Non-ionic Iodinated Reason for Study: follicular lymphoma, NSCLC, R renal lesion (Case [id number] COMPLETE) CT (CAP) ABDOMEN/PELVIS W C ONTRAS(CT Detailed) CPT:50470 Contrast Media : Non-ionic Iodinated Clinical History: [...] pager listed below: User placing orders pager: [phone] LAST 3: Collection DT Specimen Test Name [...] 15, 2021 Date Verified: SEP 15, 2021 Gum Maker E-Sig:/ES/JASPREET DACOSTA MD Report: EXAM: CT chest, abdomen, [...] Staff: JASPREET DACOSTA MD, STAFF NUCLEAR RADIOLOGIST (Gum Maker) /CPD Aug 22, 2021 12:53 PM CHEST 2 VIEWS PA AND LAT: MARCO A HURTADO [facility] ANDER LOCKWOOD [id number] -[birth year], [birth year] 8 M Ex Date: AUG 22, 2021@12:53 Req Phys: CECILIA REYES Loc: [facility] EMERGENCY DEP T WALK-IN (Re Img Loc: MAIN X-RAY Service: Unknown (Case [id number] COMPLETE) CHEST 2 VIEWS PA AND LAT (RA D Detailed) CPT:17594 Reason for Study: r/o pneumonia Clinical History: IS NOT under investigation for COVID-19 or is COVID-19 negative cough, fever, chills, h/o lobectomy Responsible provider name and phone number to notify for critical finding s if other than user placing the order and pager listed below: User placing orders pager: LAST CREATININE 1.2 (05/20/21) Report Status: Verified Date Reported: AUG 22, 2021 Date Verified: AUG 22, 2021 Gum Maker E-Sig:/ES/MARCO A HURTADO DO Report: EXAMINATION: CHEST [...] Interpreting Staff: MARCO A HURTADO DO, RADIOLOGIST (Gum Maker) /DDS Encounter Notes: All associated encounter notes This section contains the clinical notes associated to the Encounter. Date/Time Encounter Note(s) Provider Source Sep 15, 2021 09:02 AM NURSING IMMUNIZATION NOTE: HUNTER CARPENTER [facility] LOCAL TITLE: [facility] OUTPATIENT COVID VACCINE ADM INISTRATION STANDARD TITLE: NURSING IMMUNIZATION NOTE DATE OF NOTE: SEP 15, 2021@09:02 ENTRY DATE: SEP 15, 2021@09:02:54 AUTHOR: HUNTER CARPENTER EXP COSIGNER: URGENCY: STATUS: COMPLETED The patient was given the VIS for this vaccine w [facility] lists the benefits and side effects of the vaccine and which reviews th e risks of the vaccine. The fact sheet was reviewed with the patient and they were given an opportunity to ask questions. The patient denied any pr ior severe reaction to this vaccine or its components or a severe allergic reaction suc h as anaphylaxis to any vaccine or to any injectable therapy. The patien t gave verbal consent to receive the vaccine. Booster Dose: The patient received BeyondCore COVID-19 Vaccine 0. 3 ml IM. Series: Series 4 MVX (Manuf); Lot#; Exp Date: PFR; [id number]; 02/08 Administration Anatomic site: Left Deltoid Vaccine administered without complications. The patient was advised to remain in the facility for 15 minutes p ost vaccination. The patient was given a completed COVID-19 vaccination record card, a copy of the [place] Side Effects and Adverse Events Reporting Fact Sheet and ins tructed on how to report any adverse reactions. /shalonda/ HUNTER CARPENTER cd Signed: 09/15/2021 09:06
--- OUTSIDE RECORDS SUMMARY | 2021-11-18 09:10 | XMS_ITS | Encounter Summary ---
:1945 Author Organization [facility] Address [address] [place] [address] Support Name Relationship Address Phone SILKE LOCKWOOD Unavailable [id number] [address] SILKE LOCKWOOD Unavailable [id number] [address] Insurance Providers: All historical and current Section [...] Victor [place] M[place] Jun 10, [id number] [facility] (WNR) ADVANTAGE (WNR) 2019 8 [id number] [phone] ,ANDER Bennett [place] Jun 10, [id number] ASH[address] P [facility]WNR) 2018 3 [id number] [phone] ,ANDER Bennett Selected Encounter This section includes the information on record at [place] for the Encounter. Date/Time Encounter Type Encounter Reason Provider Source Description Sep 15, 2021 DRAW BLOOD OFF ONCOLOGY/TUMOR ICD-10-CM Z45.2 SHYANNE CONNER 09:30 AM VENOUS DEVICE Encounter for adjustment and management of VAD with Provider Comments: Encounter for adjustment and management of VAD IHE Encounter Template Text not used by [facility] Assessments - Encounter Diagnoses This section includes the primary and secondary diagnoses documented for the Encounter. Date/Time Primary/Secondary Diagnosis Name Provider Source Diagnosis Sep 15, 2021 PRIMARY Encounter for ARTEMIO CONNER V A 09:39 AM adjustment and HCS management of VAD Plan of Treatment: Future Appointments (+ 6 months) and Future Tests (+/- 45 days) The Plan of Treatment section includes future care activities for the patient from all [facility]. This section includes future appointments and future orders which are active, pending orscheduled.Future Appointments This section includes appointments that were scheduled to occur 6 months from the date of the Encounter, up to a maximum of 20 appointments. The data comes from all [facility]. Appointment Date/Time Appointment Type Appointment Facili ty Name Oct 03, 2021 01:39 PM AMBULATORY - NONE [facility] Oct 03, 2021 01:42 PM AMBULATORY - NONE [facility] Oct 04, 2021 07:51 PM AMBULATORY - NONE [facility] Oct 14, 2021 10:30 AM AMBULATORY - MEDICINE [facility] Oct 25, 2021 12:27 PM AMBULATORY - NONE [facility] Oct 27, 2021 08:30 AM AMBULATORY - MEDICINE [facility] Oct 27, 2021 09:00 AM AMBULATORY - NONE [facility] Nov 02, 2021 09:00 AM AMBULATORY - MEDICINE [facility] Nov 15, 2021 10:00 AM AMBULATORY - NONE [facility] Nov 17, 2021 10:00 AM AMBULATORY - SURGERY [facility] Dec 15, 2021 04:00 PM AMBULATORY - MEDICINE [facility] Active, Pending, and Scheduled Orders This section includes a listing of several types of active, pending, and scheduled orders, including clinic medications orders, diagnostic test orders, procedure orders and consult orders; where the start date of the order is 45 days before the date of the Encounter or 45 days after the date of the Encounter. The data comes from all [facility]. Test Date/Time Test Type Test Details Facility Name Oct 14, 2021 10:49 AM Consult Order [facility] THERAPY Cons Industrial Engineering Intern's Choice Lab Results: +/- 30 days of the encounter This section includes the Chemistry and Hematology Lab Results on record with [place] for the patient. Radiology Reports and Pathology Reports are provided separately, in subsequent sections.Lab Results This section contains the Chemistry/Hematology Results that were resulted 30 days before or 30 daysafter the date of the Encounter. Date/Time Source Result Type Result - Unit Interpretation Reference Range Comment Sep 15, 2021 10:02 AM [facility] POC CREATININE Specim en Type: BLOOD No comment enter ed. Ordering Provid er: LIAM MEJIA Report Released Date/Time: Sep 15, 2021 10:02 AM Reporting Lab: [facility] [address] [facility] [address] Performing Lab: [facility] [address] POC CREATININE 1.2 0.6-1.3 Sep 15, 2021 09:35 AM [facility] EXTRA MINT TUBE Specim en Type: PLASMA No comment enter ed. Ordering Provid er: LIAM MEJIA Report Released Date/Time: Sep 15, 2021 09:39 AM Reporting Lab: [facility] [address] [facility] [address] Performing Lab: [facility] [address] EXTRA MINT TUBE RECEIVED Sep 15, 2021 09:35 AM [facility] RETICS Specim en Type: BLOOD Comment: Automsegun sy Differential Performed Ordering Provid er: CHACHO GOMEZ Report Released Date/Time: May 21, 2021 03:59 PM Reporting Lab: [facility] [facility] [address] Performing Lab: [facility] [address] ABS RETIC 0.0751 0.0300-0.1000 .RETICULOCYTE 1.78 0.6-2.0 IMMATURE RETIC 12.5 1.0-14.0 .RETICULOCYTE HE 34.2 28.2-36.6 Sep 15, 2021 [facility] COMPREHENSIVE METABOLIC Spec imen Type: PLASMA 09:35 AM PANEL+MG Comment: Automsegun sy Differential Performed Ordering Provid er: CHACHO GOMEZ Report Released Date/Time: May 21, 2021 03:59 PM Reporting Lab: [facility] [address] Performing Lab: [facility] Sep 15, 2021 [facility] LD,TOTAL Specimen Typ e: PLASMA 09:35 AM No comment enter ed. Ordering Provid er: CHACHO GOMEZ Report Released Date/Time: May 21, 2021 03:59 PM Reporting Lab: [facility] [facility] [address] Performing Lab: [facility] [address] [facility] [address] LD,TOTAL 148 125-220 Sep 15, 2021 09:35 AM [facility] FOLATE Specim en Type: SERUM No comment enter ed. Ordering Provid er: PATRICIACHACHO Report Released Date/Time: May 21, 2021 03:59 PM Reporting Lab: [facility] [address] [facility] [address] Performing Lab: [facility] [address] [facility] [address] FOLATE >20.0 >7.0 Sep 15, 2021 09:35 AM [facility] IRON GROUP Specim en Type: SERUM No comment enter ed. Ordering Provid er: PATRICIA,CHACHO Report Released Date/Time: May 21, 2021 03:59 PM Reporting Lab: [facility] [address] [facility] [address] Performing Lab: [facility] [address] IRON 71 65-175 TIBC,CALCULATED 258 250-425 FERRITIN 195.5 21.8-274.7 IRON SATURATION 28 20-50 TRANSFERRIN 206 163-382 Sep 15, 2021 [facility] LIPID PANEL,NON-FASTING Spec imen Type: PLASMA 09:35 AM Comment: Automa kerrie Differential Performed Ordering Provid er: LIAM MEJIA Report Released Date/Time: May 29, 2021 05:51 PM Reporting Lab: [facility] [address] [facility] [address] Performing Lab: [facility] Sep 15, 2021 [facility] B 12 Specimen Typ e: SERUM 09:35 AM No comment enter ed. Ordering Provid er: PATRICIACHACHO Report Released Date/Time: May 21, 2021 03:59 PM Reporting Lab: [facility] [address] [facility] [address] Performing Lab: [facility] [address] [facility] [address] B 12 [phone] Sep 15, 2021 09:35 [facility] TSH W/REFLEX TO FREE Spec imen Type: PLASMA AM T4 No comment enter ed. Ordering Provid er: LIAM MEJIA Report Released Date/Time: May 29, 2021 05:51 PM Reporting Lab: [facility] [address] [facility] [address] Performing Lab: [facility] [address] [facility] [address] TSH 1.72 0.35-4.94 Sep 15, 2021 09:35 [facility] EXTRA PURPLE TUBE Specime n Type: BLOOD AM No comment enter ed. Ordering Provid er: LIAM MEJIA Report Released Date/Time: Sep 15, 2021 09:39 AM Reporting Lab: [facility] [address] [facility] [address] Performing Lab: [facility] [address] [facility] [address] EXTRA PURPLE TUBE RECEIVED Sep 15, 2021 09:35 AM [facility] CBC & DIFF Specim en Type: BLOOD Comment: Automa kerrie Differential Performed Ordering Provid er: CHACHO GOMEZ Report Released Date/Time: May 21, 2021 03:59 PM Reporting Lab: [facility] [address] Performing Lab[facility] [address] WBC 7.54 4.0-11.0 RBC 4.22 L 4.6-6.2 [...] .RETICULOCYTE HE 34.2 28.2-36.6 Aug 22, 2021 [facility] COVID-19 AND FLU/RSV DIAG Sp ecimen Type: NASOPHARYNGEAL 11:47 AM PANEL(CEPHEID) Comment: Austin cameron GeneXpert (618) Ordering Provid er: CECILIA REYES Report Released Date/Time: Aug 22, 2021 11:33 AM Reporting Lab: [facility] [address] Performing Lab: [facility] [address] COVID-19 (CEPHEID) Not Detected Not Dete cted INFLUENZA A (PCR) Not Detected Not Detec kerrie INFLUENZA B (PCR) Not Detected Not Detec kerrie RSV (PCR) Not Detected Not Detected Social History: Smoking Status (Most current) and Tobacco Use (All prior to encounter date) This section includes the most current, and the historical, smoking and tobacco-related health factors from the [facility] where the Encounter took place.Current Smoking Status This section includes the most current smoking, or tobacco-related health factor, from the [place] facility where the Encounter took place. Date/Time Current Smoking Status Comment Facility May 26, 2021 03:30 PM VA-TOBACCO FORMER USER [facility] Tobacco Use History This section includes a history of the smoking, or tobacco- related health factors, that were collected on or before the date of the Encounter. The data comes from the [facility] where the Encounter took place. Date/Time Smoking Status/Tobacco Use Comment [facility] May 26, 2021 03:30 PM VA-TOBACCO QUIT 15 YRS OR MORE [facility] Jul 05, 2020 06:42 PM VA-TOBACCO FORMER USER [facility] Jan 09, 2018 02:01 PM VA-TOBACCO FORMER USER [facility] Jan 09, 2018 02:01 PM VA-TOBACCO QUIT 5 TO < 15 YRS [facility] Apr 16, 2017 10:17 AM FORMER TOBACCO USER 7Y OR GREATER [facility] Jun 09, 2016 10:03 AM FORMER TOBACCO USER 7Y OR GREATER [facility] May 06, 2015 08:19 AM FORMER TOBACCO USER 7Y OR GREATER [facility] Advance Directives: All historical and current Section Date Range: From patient's date of to the date document was created. This section includes ALL of a patient's completed or amended [place] Advance and Rescinded Directives. The entries below indicate that a directive exists for the patient, but an actual copy is not included with this document. The data comes from all [facility]. Date Advance Directives Provider Source July 24, 2021 ADVANCE DIRECTIVE PAPA LEWIS [facility] July 24, 2021 ADVANCE DIRECTIVE DISCUSSION PAPA LEWIS [facility] Radiology Reports: +/- 30 days of the [...] the Encounter. The data comes from all [place] treatment facilities. Date/Time Radiology Report Provider Source Sep 15, 2021 10:[address] (CAP) CHEST/ABD/PELVIS (P): Dimitri DACOSTA [facility] ANDER LOCKWOOD [id number] -[birth year] 8 M Exm Date: SEP 15, 2021@10:12 Req Phys: PATRICIA,CHACHO Pat Loc: [facility] HEM ONC PHON E PATRICIA (Req'g Img Loc: CT IMAGING Service: Unknown (Case [id number] COMPLETE) CT (CAP) CHEST W CONTRAST ( CT Detailed) CPT:46441 Contrast Media : Non-ionic Iodinated Reason for Study: follicular lymphoma, NSCLC, R renal lesion (Case [id number] COMPLETE) CT (CAP) ABDOMEN/PELVIS W C ONTRAS(CT Detailed) CPT:06440 Contrast Media : Non-ionic Iodinated Clinical History: [...] pager listed below: User placing orders pager: [phone] LAST 3: Collection DT Specimen Test Name [...] 15, 2021 Date Verified: SEP 15, 2021 Coverage Specialist Rn E-Sig:/ES/JASPREET DACOSTA MD Report: EXAM: CT chest, [...] Staff: JASPREET DACOSTA MD, STAFF NUCLEAR RADIOLOGIST (Coverage Specialist Rn) /CPD Aug 22, 2021 12:53 PM CHEST 2 VIEWS PA AND LAT: MARCO A HURTADO [facility] ANDER LOCKWOOD [id number] -[birth year] 8 M Exm Date: AUG 22, 2021@12:53 Req Phys: CECILIA REYES Loc: [facility] EM[facility]GENCY DEP T WALK-IN (Re Img Loc: MAIN X-RAY Service: Unknown (Case [id number] COMPLETE) CHEST 2 VIEWS PA AND LAT (RA D Detailed) CPT:30998 Reason for Study: r/o pneumonia Clinical History: [place] IS NOT under investigation for COVID-19 or is COVID-19 negative cough, fever, chills, h/o lobectomy Responsible provider name and phone number to notify for critical finding s if other than user placing the order and pager listed below: User placing orders pager: LAST CREATININE 1.2 (05/20/21) Report Status: Verified Date Reported: AUG 22, 2021 Date Verified: AUG 22, 2021 Coverage Specialist Rn E-Sig:/ES/MARCO A HURTADO DO Report: EXAMINATION: CHEST [...] Interpreting Staff: MARCO A HURTADO DO, RADIOLOGIST (Coverage Specialist Rn) /DDS Encounter Notes: All associated encounter notes This section contains the clinical notes associated to the Encounter. Date/Time Encounter Note(s) Provider Source Sep 15, 2021 09:34 AM HEMATOLOGY AND ONCOLOGY NURSING OUTPAT IENT NOTE: ARTEMIO CONNER [facility] LOCAL TITLE: HEME/ONC BLOOD DRAW CLINIC NURSING NOTE STANDARD TITLE: HEMATOLOGY AND ONCOLOGY NURSING OUTPATIENT NOTE DATE OF NOTE: SEP 15, 2021@09:34 ENTRY DATE: SEP 15, 2021@09:34:43 AUTHOR: ARTEMIO CONNER EXP COSIGNER: URGENCY: STATUS: COMPLETED Date of Service: Sep Diagnosis: Lung CA Procedure: blood collection through venous acces s device Venous Access Device Care: Type: Portacath 3/4 20g Power [place] Needle Blood return: Yes Site: normal Labs drawn: Yes Flushes: normal saline, heparin 500 units Status: remains accessed Discharge to: Other: [facility] A m Patient was notified they need their por t flushed in 30-60 days and to make an appt with the [facility] or at their own provider. /shalonda/ ARTEMIO CONNER LPN Signed: 09/15/2021 09:39
--- OUTSIDE RECORDS SUMMARY | 2021-11-18 09:10 | XMS_ITS | Encounter Summary ---
:1945 Author Organization [facility] Address [address] [place] [address] Support Name Relationship Address Phone SILKE LOCKWOOD Unavailable [id number] [place] [phone] SILKE LOCKWOOD Unavailable [id number] [place] [phone] Insurance Providers: All historical and current Section [...] Victor [place] Jun 10, [id number] [facility]NR) 2020 8 [id number] [phone] ,ANDER Bennett [place] Jun 10, [id number] P ATIENT [facility] (WNR) ADVANTAGE (WNR) 2018 3 [id number] [phone] ,ANDER Bennett Selected Encounter This section includes the information on record at [place] for the Encounter. Date/Time Encounter Type Encounter Description Reason Provider Source Sep 15, 2021 09:36 Outpatient Encounter PRIMARY CARE/MEDICINE AM [facility] Encounter Template Text not used by [place] Plan of Treatment: Future Appointments (+ 6 months) and Future Tests (+/- 45 days) The Plan of Treatment section includes future care activities for the patient from all [place] treatmentfacilities. This section includes future appointments and future orders which are active, pending orscheduled.Future Appointments This section includes appointments that were scheduled to occur 6 months from the date of the Encounter, up to a maximum of 20 appointments. The data comes from all [facility]. Appointment Date/Time Appointment Type Appointment Facili ty Name Oct 03, 2021 01:39 PM AMBULATORY - NONE [facility] Oct 03, 2021 01:42 PM AMBULATORY - NONE [facility] Oct 04, 2021 07:51 PM AMBULATORY - NONE [facility] Oct 14, 2021 10:30 AM AMBULATORY - MEDICINE [facility] Oct 25, 2021 12:27 PM AMBULATORY - NONE [facility] Oct 27, 2021 08:30 AM AMBULATORY - MEDICINE [facility] Oct 27, 2021 09:00 AM AMBULATORY - NONE [facility] Nov 02, 2021 09:00 AM AMBULATORY - MEDICINE [facility] Nov 15, 2021 10:00 AM AMBULATORY - NONE [facility] Nov 17, 2021 10:00 AM [facility] Dec 15, 2021 04:00 PM AMBULATORY - MEDICINE [facility] Active, Pending, and Scheduled Orders This section includes a listing of several types of active, pending, and scheduled orders, including clinic medications orders, diagnostic test orders, procedure orders and consult orders; where the start date of the order is 45 days before the date of the Encounter or 45 days after the date of the Encounter. The data comes from all [facility]. Test Date/Time Test Type Test Details Facility Name Oct 14, 2021 10:49 AM Consult Order COMMUNITY CARE-RADIATION [facility] THERAPY Cons Lead Sharepoint Developer's Choice Lab Results: +/- 30 days of the encounter This section includes the Chemistry and Hematology Lab Results on record with [place] for the patient. Radiology Reports and Pathology Reports are provided separately, in subsequent sections.Lab Results This section contains the Chemistry/Hematology Results that were resulted 30 days before or 30 daysafter the date of the Encounter. Date/Time Source Result Type Result - Unit Interpretation Reference Range Comment Sep 15, 2021 10:02 AM [facility] POC CREATININE Specim en Type: BLOOD No comment enter ed. Ordering Provid er: LIAM MEJIA Report Released Date/Time: Sep 15, 2021 10:02 AM Reporting Lab: [facility] [address] [facility] [address] Performing Lab: [facility] [address] [facility] [address] POC CREATININE 1.2 0.6-1.3 Sep 15, 2021 09:35 AM [facility] EXTRA MINT TUBE Specim en Type: PLASMA No comment enter ed. Ordering Provid er: LIAM MEJIA E Report Released Date/Time: Sep 15, 2021 09:39 AM Reporting Lab: [facility] [address] [facility] [address] Performing Lab: [facility] [address] [facility] [address] EXTRA MINT TUBE RECEIVED Sep 15, 2021 [facility] COMPREHENSIVE METABOLIC Spec imen Type: PLASMA 09:35 AM PANEL+MG Comment: Automsegun sy Differential Performed Ordering Provid er: CHACHO GOMEZ Report Released Date/Time: May 21, 2021 03:59 PM Reporting Lab: [facility] [address] [facility] [address] Performing Lab: [facility] Sep 15, 2021 [facility] RETICS Specimen Typ e: BLOOD 09:35 AM Comment: Automsegun sy Differential Performed Ordering Provid er: CHACHO GOMEZ Report Released Date/Time: May 21, 2021 03:59 PM Reporting Lab: [facility] [address] [facility] [address] Performing Lab: [facility] [address] [facility] [address] ABS RETIC 0.0751 0.0300-0.1000 .RETICULOCYTE 1.78 0.6-2.0 IMMATURE RETIC 12.5 1.0-14.0 .RETICULOCYTE HE 34.2 28.2-36.6 Sep 15, 2021 09:35 AM [facility] LD,TOTAL Specim en Type: PLASMA No comment enter ed. Ordering Provid er: CHACHO GOMEZ Report Released Date/Time: May 21, 2021 03:59 PM Reporting Lab: [facility] [address] [facility] [address] Performing Lab: [facility] [address] [facility] [address] LD,TOTAL [phone] Sep 15, 2021 09:35 AM [facility] FOLATE Specim en Type: SERUM No comment enter ed. Ordering Provid er: CHACHO GOMEZ Report Released Date/Time: May 21, 2021 03:59 PM Reporting Lab: [facility] [address] [facility] [address] Performing Lab: [facility] [address] [facility] [address] FOLATE >20.0 >7.0 Sep 15, 2021 09:35 AM [facility] B 12 Specim en Type: SERUM No comment enter ed. Ordering Provid er: CHACHO GOMEZ Report Released Date/Time: May 21, 2021 03:59 PM Reporting Lab: [facility] [address] [facility] [address] Performing Lab: [facility] [address] [facility] [address] B 12 [phone] Sep 15, 2021 09:35 AM [facility] IRON GROUP Specim en Type: SERUM No comment enter ed. Ordering Provid er: CHACHO GOMEZ Report Released Date/Time: May 21, 2021 03:59 PM Reporting Lab: [facility] [address] [facility] [address] Performing Lab: [facility] [address] [facility] [address] IRON 71 65-175 TIBC,CALCULATED 258 250-425 FERRITIN 195.5 21.8-274.7 IRON SATURATION 28 20-50 TRANSFERRIN [phone] Sep 15, 2021 [facility] LIPID PANEL,NON-FASTING Spec imen Type: PLASMA 09:35 AM Comment: Automa kerrie Differential Performed Ordering Provid er: LIAM MEJIA Report Released Date/Time: May 29, 2021 05:51 PM Reporting Lab: [facility] [address] [facility] [address] Performing Lab: [facility] Sep 15, 2021 [facility] TSH W/REFLEX TO FREE T4 Spec imen Type: PLASMA 09:35 AM No comment enter ed. Ordering Provid er: LIAM MEJIA Report Released Date/Time: May 29, 2021 05:51 PM Reporting Lab: [facility] [address] [facility] [address] Performing Lab: [facility] [address] [facility] [address] TSH 1.72 0.35-4.94 Sep 15, 2021 09:35 [facility] EXTRA PURPLE TUBE Specime n Type: BLOOD AM No comment enter ed. Ordering Provid er: LIAM MEJIA Report Released Date/Time: Sep 15, 2021 09:39 AM Reporting Lab: [facility] [address] [facility] [address] Performing Lab: [facility] [address] [facility] [address] EXTRA PURPLE TUBE RECEIVED Sep 15, 2021 09:35 AM [facility] CBC & DIFF Specim en Type: BLOOD Comment: Automa kerrie Differential Performed Ordering Provid er: CHACHO GOMEZ Report Released Date/Time: May 21, 2021 03:59 PM Reporting Lab: [facility] [address] Performing Lab: [facility] [address] WBC 7.54 4.0-11.0 RBC 4.22 L 4.6-6.2 [...] .RETICULOCYTE HE 34.2 28.2-36.6 Aug 22, 2021 [facility] COVID-19 AND FLU/RSV DIAG Sp ecimen Type: NASOPHARYNGEAL 11:47 AM PANEL(CEPHEID) Comment: Cephei d GeneXpert (618) Ordering Provid er: CECILIA REYES Report Released Date/Time: Aug 22, 2021 11:33 AM Reporting Lab: [facility] [address] Performing Lab: [facility] [address] COVID-19 (CEPHEID) Not Detected Not Dete cted INFLUENZA A (PCR) Not Detected Not Detec kerrie INFLUENZA B (PCR) Not Detected Not Detec kerrie RSV (PCR) Not Detected Not Detected Social History: Smoking Status (Most current) and Tobacco Use (All prior to encounter date) This section includes the most current, and the historical, smoking and tobacco-related health factors from the [place] facility where the Encounter took place.Current Smoking Status This section includes the most current smoking, or tobacco-related health factor, from the [place] facility where the Encounter took place. Date/Time Current Smoking Status Comment Facility May 26, 2021 03:30 PM [place]-TOBACCO QUIT 15 YRS OR MORE [facility] Tobacco Use History This section includes a history of the smoking, or tobacco- related health factors, that were collected on or before the date of the Encounter. The data comes from the [place] facility where the Encounter took place. Date/Time Smoking Status/Tobacco Use Comment Facil ity May 26, 2021 03:30 PM VA-TOBACCO QUIT 15 YRS OR MORE [facility] Jul 05, 2020 06:42 PM VA-TOBACCO FORMER USER [facility] Jan 09, 2018 02:01 PM VA-TOBACCO FORMER USER [facility] Jan 09, 2018 02:01 PM VA-TOBACCO QUIT 5 TO < 15 YRS [facility] Apr 16, 2017 10:17 AM FORMER TOBACCO USER 7Y OR GREATER [facility] Jun 09, 2016 10:03 AM FORMER TOBACCO USER 7Y OR GREATER [facility] May 06, 2015 08:19 AM FORMER TOBACCO USER 7Y OR GREATER [facility] Advance Directives: All historical and current Section Date Range: From patient's date of to the date document was created. This section includes ALL of a patient's completed or amended [place] Advance and Rescinded Directives. The entries below indicate that a directive exists for the patient, but an actual copy is not included with this document. The data comes from all [facility]. Date Advance Directives Provider Source July 24, 2021 ADVANCE DIRECTIVE PAPA LEWIS [facility] July 24, 2021 ADVANCE DIRECTIVE DISCUSSION PAPA LEWIS [facility] Radiology Reports: +/- 30 days of [...] the Encounter. The data comes from all [place] treatment facilities. Date/Time Radiology Report Provider Source Sep 15, 2021 10:[address] (CAP) CHEST/ABD/PELVIS (P): Dimitri DACOSTA [facility] ANDER LOCKWOOD [id number] -[birth year] 8 M Exm Date: SEP 15, 2021@10:12 Req Phys: PATRICIA,CHACHOZACH Ramachandran Loc: [facility] HEM ONC PHON Rigo GOMEZ (Req'g Img Loc: CT IMAGING Service: Unknown (Case [id number] COMPLETE) CT (CAP) CHEST W CONTRAST ( CT Detailed) CPT:00374 Contrast Media : Non-ionic Iodinated Reason for Study: follicular lymphoma, NSCLC, R renal lesion (Case [id number] COMPLETE) CT (CAP) ABDOMEN/PELVIS W C ONTRAS(CT Detailed) CPT:30634 Contrast Media : Non-ionic Iodinated Clinical History: [...] pager listed below: User placing orders pager: [phone] LAST 3: Collection DT Specimen Test Name [...] 15, 2021 Date Verified: SEP 15, 2021 Engravings Polisher E-Sig:/ES/JASPREET DACOSTA MD Report: EXAM: CT chest, [...] Staff: JASPREET DACOSTA MD, STAFF NUCLEAR RADIOLOGIST (Engravings Polisher) /CPD Aug 22, 2021 12:53 PM CHEST 2 VIEWS PA AND LAT: MARCO A HURTADO [facility] ANDER LOCKWOOD [id number] -[birth year], [birth year] 8 M Exm Date: AUG 22, 2021@12:53 Req Phys: CECILIA REYES Pat Loc: [facility] EMERGENCY DEP T WALK-IN (Re Img Loc: MAIN X-RAY Service: Unknown (Case [id number] COMPLETE) CHEST 2 VIEWS PA AND LAT (RA D Detailed) CPT:92471 Reason for Study: r/o pneumonia Clinical History: [...] 22, 2021 Date Verified: AUG 22, 2021 Engravings Polisher E-Sig:/ES/MARCO A HURTADO DO Report: EXAMINATION: CHEST [...] Interpreting Staff: MARCO A HURTADO DO, RADIOLOGIST (Engravings Polisher) /DDS Encounter Notes: All associated encounter notes This section contains the clinical notes associated to the Encounter. Date/Time Encounter Note(s) Provider Source Sep 15, 2021 09:36 AM HOME HEALTH REFERRAL NOTE: KEL CLANCY [facility] LOCAL TITLE: [facility]ALTH CARE STANDARD TITLE: HOME HEALTH REFERRAL NOTE DATE OF NOTE: SEP 15, 2021@09:36 ENTRY DATE: SEP 15, 2021@09:36:51 AUTHOR: KEL CLANCY EXP COSIGNER: URGENCY: STATUS: COMPLETED HOME HEALTH CARE CERTIFICATION AND PLAN OF CARE SIGNED BY: Dr. Mejia for [facility] [id number] Certification period From: 09/09/2021 To: 2021 /shalonda/ KEL CLANCY [facility] Signed: 09/15/2021 09:37
--- OUTSIDE RECORDS SUMMARY | 2021-11-18 09:10 | XMS_ITS | Encounter Summary ---
:1945 Author Organization [facility] Address [address] [place] [id number] Support Name Relationship Address Phone SILKE LOCKWOOD Unavailable [id number] [place] [phone] SILKE LOCKWOOD Unavailable [id number] [place] [phone] Insurance Providers: All historical and current Section [...] [place] Jun 10, [id number] [facility] (WNR) 2020 8 [id number] [phone] ,ANDER Bennett [place] Jun 10, [id number] ATIENT [facility] (WNR) ADVANTAGE (WNR) 2018 3 [id number] [phone] ,ANDER Bennett Selected Encounter This section includes the information on record at [place] for the Encounter. Date/Time Encounter Type Encounter Reason Provider Source Description Sep 05, 2021 05:22 Outpatient PRIMARY LIAM MEJIA Encounter CARE/MEDICINE IHE Encounter Template Text not used by [place] Plan of Treatment: Future Appointments (+ 6 months) and Future Tests (+/- 45 days) The Plan of Treatment section includes future care activities for the patient from all [place] treatmentfacilities. This section includes future appointments and future orders which are active, pending orscheduled.Future Appointments This section includes appointments that were scheduled to occur 6 months from the date of the Encounter, up to a maximum of 20 appointments. The data comes from all [place] treatment [facility]. Appointment Date/Time Appointment Type Appointment Facili ty Name Sep 15, 2021 09:00 AM AMBULATORY - MEDICINE [facility] Sep 15, 2021 09:30 AM AMBULATORY - MEDICINE [facility] Sep 15, 2021 10:00 AM AMBULATORY - NONE [facility] Oct 03, 2021 01:39 PM AMBULATORY - NONE [facility] Oct 03, 2021 01:42 PM AMBULATORY - NONE [facility] Oct 04, 2021 07:51 PM AMBULATORY - NONE [facility] Oct 14, 2021 10:30 AM AMBULATORY - MEDICINE [facility] Oct 25, 2021 12:27 PM AMBULATORY - NONE [facility] Oct 27, 2021 08:30 AM AMBULATORY - MEDICINE [facility] Oct 27, 2021 09:00 AM AMBULATORY - NONE [facility] Nov 02, 2021 09:00 AM AMBULATORY - MEDICINE [facility] Nov 15, 2021 10:00 AM AMBULATORY - NONE [facility] Nov 17, 2021 10:00 AM AMBULATORY - SURGERY [facility] Dec 15, 2021 04:00 PM AMBULATORY - MEDICINE [facility] Active, Pending, and Scheduled Orders This section includes a listing of several types of active, pending, and scheduled orders, including clinic medications orders, diagnostic test orders, procedure orders and consult orders; where the start date of the order is 45 days before the date of the Encounter or 45 days after the date of the Encounter. The data comes from all [facility]. Test Date/Time Test Type Test Details Facility Name Oct 14, 2021 10:49 AM Consult Order [facility]UNITY [facility]ARE-RADIATION [facility] THERAPY Cons [place] [employer] Lab Results: +/- 30 days of the encounter This section includes the Chemistry and Hematology Lab Results on record with [place] for the patient. Radiology Reports and Pathology Reports are provided separately, in subsequent sections.Lab Results This section contains the Chemistry/Hematology Results that were resulted 30 days before or 30 daysafter the date of the Encounter. Date/Time Source Result Type Result - Unit Interpretation Reference Range Comment Sep 15, 2021 10:02 AM [facility] POC CREATININE Specim en Type: BLOOD No comment enter ed. Ordering Provid er: LIAM MEJIA Report Released Date/Time: Sep 15, 2021 10:02 AM Reporting Lab: [facility] [address] [facility] [address] Performing Lab: [facility] [address] [facility] [address] POC CREATININE 1.2 0.6-1.3 Sep 15, 2021 09:35 AM [facility] EXTRA MINT TUBE Specim en Type: PLASMA No comment enter ed. Ordering Provid er: LIAM MEJIA E Report Released Date/Time: Sep 15, 2021 09:39 AM Reporting Lab: [facility] [address] [facility] [address] Performing Lab: [facility] [address] [facility] [address] EXTRA MINT TUBE RECEIVED Sep 15, 2021 09:35 AM [facility] RETICS Specim en Type: BLOOD Comment: Automsegun sy Differential Performed Ordering Provid er: CHACHO GOMEZ Report Released Date/Time: May 21, 2021 03:59 PM Reporting Lab: [facility] [address] [facility] [address] [facility] [address] Performing Lab: [facility] [address] [facility] [address] [facility] [address] ABS RETIC 0.0751 0.0300-0.1000 .RETICULOCYTE 1.78 0.6-2.0 IMMATURE RETIC 12.5 1.0-14.0 .RETICULOCYTE HE 34.2 28.2-36.6 Sep 15, 2021 [facility] COMPREHENSIVE METABOLIC Spec imen Type: PLASMA 09:35 AM PANEL+MG Comment: Automsegun sy Differential Performed Ordering Provid er: CHACHO GOMEZ Report Released Date/Time: May 21, 2021 03:59 PM Reporting Lab: [facility] [address] [facility] [address] Performing Lab: [facility] Sep 15, 2021 [facility] LD,TOTAL Specimen Typ e: PLASMA 09:35 AM No comment enter ed. Ordering Provid er: CHACHO GOMEZ Report Released Date/Time: May 21, 2021 03:59 PM Reporting Lab: [facility] [address] [facility] [address] Performing Lab: [facility] [address] [facility] [address] LD,TOTAL [phone] Sep 15, 2021 09:35 AM [facility] FOLATE Specim en Type: SERUM No comment enter ed. Ordering Provid er: CHACHO GOMEZ Report Released Date/Time: May 21, 2021 03:59 PM Reporting Lab: [facility] [address] [facility] [address] Performing Lab: [facility] [address] [facility] [address] FOLATE >20.0 >7.0 Sep 15, 2021 09:35 AM [facility] IRON GROUP Specim en Type: SERUM No comment enter ed. Ordering Provid er: CHACHO GOMEZ Report Released Date/Time: May 21, 2021 03:59 PM Reporting Lab: [facility] [address] [facility] [address] Performing Lab: [facility] [address] [facility] [address] IRON 71 65-175 TIBC,CALCULATED 258 250-425 FERRITIN 195.5 21.8-274.7 IRON SATURATION 28 20-50 TRANSFERRIN [phone] Sep 15, 2021 09:35 AM [facility] B 12 Specim en Type: SERUM No comment enter ed. Ordering Provid er: CHACHO GOMEZ Report Released Date/Time: May 21, 2021 03:59 PM Reporting Lab: [facility] [address] [facility] [address] Performing Lab: [facility] [address] [facility] [address] B 12 [phone] Sep 15, 2021 [facility] LIPID PANEL,NON-FASTING Spec imen Type: PLASMA 09:35 AM Comment: Dee sy Differential Performed Ordering Provid er: LIAM MEJIA Report Released Date/Time: May 29, 2021 05:51 PM Reporting Lab: [facility] [address] [facility] [address] Performing Lab: [facility] Sep 15, 2021 [facility] TSH W/REFLEX TO FREE T4 Spec imen Type: PLASMA 09:35 AM No comment enter ed. Ordering Provid er: LIAM MEJIA Report Released Date/Time: May 29, 2021 05:51 PM Reporting Lab: [facility] [address] [facility] [address] Performing Lab: [facility] [address] [facility] [address] TSH 1.72 0.35-4.94 Sep 15, 2021 09:35 AM [facility] CBC & DIFF Specim en Type: BLOOD Comment: Automa kerrie Differential Performed Ordering Provid er: CHACHO GOMEZ Report Released Date/Time: May 21, 2021 03:59 PM Reporting Lab: [facility] [address] Performing Lab: [facility] [address] WBC 7.54 4.0-11.0 RBC 4.22 L 4.6-6.2 [...] HE 34.2 28.2-36.6 Sep 15, 2021 09:35 [facility] EXTRA PURPLE TUBE Specime n Type: BLOOD AM No comment enter ed. Ordering Provid er: LIAM MEJIA Report Released Date/Time: Sep 15, 2021 09:39 AM Reporting Lab: [facility] [address] Performing Lab: [facility] [address] EXTRA PURPLE TUBE RECEIVED Aug 22, 2021 [facility] COVID-19 AND FLU/RSV DIAG Sp ecimen Type: NASOPHARYNGEAL 11:47 AM PANEL(CEPHEID) Comment: Austin cameron GeneXpert (618) Ordering Provid er: CECILIA REYES Report Released Date/Time: Aug 22, 2021 11:33 AM Reporting Lab: [facility] [address] Performing Lab: [facility] [address] COVID-19 (CEPHEID) Not Detected Not Dete cted INFLUENZA A (PCR) Not Detected Not Detec kerrie INFLUENZA B (PCR) Not Detected Not Detec kerrie RSV (PCR) Not Detected Not Detected Social History: Smoking Status (Most current) and Tobacco Use (All prior to encounter date) This section includes the most current, and the historical, smoking and tobacco-related health factors from the [place] facility where the Encounter took place.Current Smoking Status This section includes the most current smoking, or tobacco-related health factor, from the [place] facility where the Encounter took place. Date/Time Current Smoking Status Comment Facility May 26, 2021 03:30 PM VA-TOBACCO FORMER USER [facility] Tobacco Use History This section includes a history of the smoking, or tobacco- related health factors, that were collected on or before the date of the Encounter. The data comes from the [facility] where the Encounter took place. Date/Time Smoking Status/Tobacco Use Comment Facil it May 26, 2021 03:30 PM VA-TOBACCO QUIT 15 YRS OR MORE [facility] Jul 05, 2020 06:42 PM VA-TOBACCO FORMER USER [facility] Jan 09, 2018 02:01 PM VA-TOBACCO FORMER USER [facility] Jan 09, 2018 02:01 PM VA-TOBACCO QUIT 5 TO < 15 YRS [facility] Apr 16, 2017 10:17 AM FORMER TOBACCO USER 7Y OR GREATER [facility] Jun 09, 2016 10:03 AM FORMER TOBACCO USER 7Y OR GREATER [facility] May 06, 2015 08:19 AM FORMER TOBACCO USER 7Y OR GREATER [facility] Advance Directives: All historical and current Section Date Range: From patient's date of to the date document was created. This section includes ALL of a patient's completed or amended [place] Advance and Rescinded Directives. The entries below indicate that a directive exists for the patient, but an actual copy is not included with this document. The data comes from all [facility]. Date Advance Directives Provider Source July 24, 2021 ADVANCE DIRECTIVE PAPA LEWIS [facility] July 24, 2021 ADVANCE DIRECTIVE DISCUSSION PAPA LEWIS [facility] Radiology Reports: +/- 30 days of the [...] the Encounter. The data comes from all [place] treatment facilities. Date/Time Radiology Report Provider Source Sep 15, 2021 10:[address] (CAP) CHEST/ABD/PELVIS (P): Dimitri DACOSTA [facility] ANDER LOCKWOOD [id number] -[birth year] 8 M Exm Date: SEP 15, 2021@10:12 Req Phys: PATRICIA,CHACHO Pat Loc: [facility] HEM ONC PHON E PATRICIA (Req'g Img Loc: CT IMAGING Service: Unknown (Case [id number] COMPLETE) CT (CAP) CHEST W CONTRAST ( CT Detailed) CPT:29326 Contrast Media : Non-ionic Iodinated Reason for Study: follicular lymphoma, NSCLC, R renal lesion (Case [id number] COMPLETE) CT (CAP) ABDOMEN/PELVIS W C ONTRAS(CT Detailed) CPT:60052 Contrast Media : Non-ionic Iodinated Clinical History: [place] IS NOT under investigation for COVID-19 or [...] pager listed below: User placing orders pager: [phone] LAST 3: Collection DT Specimen Test Name [...] 15, 2021 Date Verified: SEP 15, 2021 [employer] Operator E-Sig:/ES/JASPREET DACOSTA MD Report: EXAM: CT chest, [...] Staff: JASPREET DACOSTA MD, STAFF NUCLEAR RADIOLOGIST ([employer] Machine Operator) /CPD Aug 22, 2021 12:53 PM CHEST 2 VIEWS PA AND LAT: MARCO A HURTADO [facility] ANDER LOCKWOOD [id number] -[birth year], [birth year] 8 M Exm Date: AUG 22, 2021@12:53 Req Phys: CECILIA REYES Loc: [facility] EMERGENCY DEP T WALK-IN (Re Img Loc: MAIN X-RAY Service: Unknown (Case [id number] COMPLETE) CHEST 2 VIEWS PA AND LAT (RA D Detailed) CPT:85825 Reason for Study: r/o pneumonia Clinical History: [...] 22, 2021 Date Verified: AUG 22, 2021 [employer] Operator E-Sig:/ES/MARCO A HURTADO DO Report: EXAMINATION: CHEST [...] Interpreting Staff: MARCO A HURTADO DO, RADIOLOGIST (Silk Winding Machine Operator) /DDS Encounter Notes: All associated encounter notes This section contains the clinical notes associated to the Encounter. Date/Time Encounter Note(s) Provider Source Sep 05, 2021 05:22 PM PRIMARY CARE SECURE MESSAGING: ZULEYMA MEJIA [facility] LOCAL TITLE: PRIMARY CARE SECURE MESSAGING STANDARD TITLE: PRIMARY CARE SECURE MESSAGING DATE OF NOTE: SEP 05, 2021@17:22 ENTRY DATE: SEP 05, 2021@17:22:04 AUTHOR: LIAM MEJIA EXP COSIGNER: URGENCY: STATUS: COMPLETED ------Original Message Sent: 09/04/2021 09:17 AM ET From: ANDER LOCKWOOD To: [facility] Primary Care, Yisel Mejia(Deborah) Subject: General:Covid Booster?? Should I get another Covid Booster? If so, would you please make appointment for me on September 15. I will be there for other ap pointments. Thank you, Ander Lockwood ------Original Message Sent: 09/05/2021 06:20 PM ET From: LIAM MEJIA To: ANDER LOCKWOOD Subject: General:Covid Booster?? I will ask my charting clerk to call and get you schedule d for your second booster on that date. I agree with this plan. Liam Mejia M.D. /shalonda/ LIAM MEJIA MD STAFF PHYSICIAN Signed: 09/05/2021 17:22 Receipt Acknowledged By: * AWAITING SIGNATURE * ARELY HU
--- OUTSIDE RECORDS SUMMARY | 2021-11-18 09:11 | XMS_ITS | Encounter Summary ---
:1945 Author Organization [facility] Address [address] [place] [id number] Support Name Relationship Address Phone SILKE LOCKWOOD Unavailable [id number] [place] [phone] SILKE LOCKWOOD Unavailable [id number] [place] [phone] Insurance Providers: All historical and current Section [...] Victor [place] Jun 10, [id number] [facility]LY [facility] (WNR) ADVANTAGE (WNR) 2019 8 [id number] [phone] ,ANDER Bennett [place] Jun 10, [id number] [facility]NR[facility] 2018 3 [id number] [phone] ,ANDER Bennett Selected Encounter This section includes the information on record at ME for the Encounter. Date/Time Encounter Type Encounter Description Reason Provider Source Sep 01, 2021 11:33 Outpatient Encounter TELEPHONE/MEDICINE [facility] Encounter Template Text not used by ME Plan of Treatment: Future Appointments (+ 6 months) and Future Tests (+/- 45 days) The Plan of Treatment section includes future care activities for the patient from all ME treatmentfacilities. This section includes future appointments and future orders which are active, pending orscheduled.Future Appointments This section includes appointments that were scheduled to occur 6 months from the date of the Encounter, up to a maximum of 20 appointments. The data comes from all [facility]. Appointment Date/Time Appointment Type Appointment Facili ty Name Sep 15, 2021 09:00 AM AMBULATORY - MEDICINE [facility] Sep 15, 2021 09:30 AM AMBULATORY - MEDICINE [facility] Sep 15, 2021 10:00 AM AMBULATORY - NONE [facility] Oct 03, 2021 01:39 PM AMBULATORY - NONE [facility] Oct 03, 2021 01:42 PM AMBULATORY - NONE [facility] Oct 04, 2021 07:51 PM AMBULATORY - NONE [facility] Oct 14, 2021 10:30 AM AMBULATORY - MEDICINE [facility] Oct 25, 2021 12:27 PM AMBULATORY - NONE [facility] Oct 27, 2021 08:30 AM AMBULATORY - MEDICINE [facility] Oct 27, 2021 09:00 AM AMBULATORY - NONE [facility] Nov 02, 2021 09:00 AM AMBULATORY - MEDICINE [facility] Nov 15, 2021 10:00 AM AMBULATORY - NONE [facility] Nov 17, 2021 10:00 AM AMBULATORY - SURGERY [facility] Dec 15, 2021 04:00 PM AMBULATORY - MEDICINE [facility] Active, Pending, and Scheduled Orders This section includes a listing of several types of active, pending, and scheduled orders, including clinic medications orders, diagnostic test orders, procedure orders and consult orders; where the start date of the order is 45 days before the date of the Encounter or 45 days after the date of the Encounter. The data comes from all [facility]. Test Date/Time Test Type Test Details Facility Name Oct 14, 2021 10:49 AM Consult Order [facility]-RADIATION [facility] THERAPY Cons Top Hat [employer] [facility] Lab Results: +/- 30 days of the encounter This section includes the Chemistry and Hematology Lab Results on record with ME for the patient. Radiology Reports and Pathology Reports are provided separately, in subsequent sections.Lab Results This section contains the Chemistry/Hematology Results that were resulted 30 days before or 30 daysafter the date of the Encounter. Date/Time Source Result Type Result - Unit Interpretation Reference Range Comment Sep 15, 2021 10:02 AM [facility] POC CREATININE Specim en Type: BLOOD No comment enter ed. Ordering Provid er: LIAM MEJIA Report Released Date/Time: Sep 15, 2021 10:02 AM Reporting Lab: [facility] [address] Performing Lab: [facility] [address] [facility] [address] POC CREATININE 1.2 0.6-1.3 Sep 15, 2021 09:35 AM [facility] EXTRA MINT TUBE Specim en Type: PLASMA No comment enter ed. Ordering Provid er: LIAM MEJIA E Report Released Date/Time: Sep 15, 2021 09:39 AM Reporting Lab: [facility] [address] [facility] [address] Performing Lab: [facility] [address] [facility] [address] EXTRA MINT TUBE RECEIVED Sep 15, 2021 09:35 AM [facility] RETICS Specim en Type: BLOOD Comment: Automa kerrie Differential Performed Ordering Provid er: CHACHO GOMEZ Report Released Date/Time: May 21, 2021 03:59 PM Reporting Lab: [facility] [address] [facility] [address] Performing Lab: [facility] [address] [facility] [address] ABS RETIC 0.0751 0.0300-0.1000 .RETICULOCYTE 1.78 0.6-2.0 IMMATURE RETIC 12.5 1.0-14.0 .RETICULOCYTE HE 34.2 28.2-36.6 Sep 15, 2021 [facility] COMPREHENSIVE METABOLIC Spec imen Type: PLASMA 09:35 AM PANEL+MG Comment: Automa kerrie Differential Performed Ordering Provid er: CHACHO GOMEZ Report Released Date/Time: May 21, 2021 03:59 PM Reporting Lab: [facility] [address] [facility] [address] Performing Lab: [facility] Sep 15, 2021 [facility] LD,TOTAL Specimen Typ e: PLASMA 09:35 AM No comment enter ed. Ordering Provid er: CHACHO GOMEZ Report Released Date/Time: May 21, 2021 03:59 PM Reporting Lab: [facility] [address] [facility] [address] Performing Lab: [facility] [address] [facility] [address] LD,TOTAL [phone] Sep 15, 2021 09:35 AM [facility] FOLATE Specim en Type: SERUM No comment enter ed. Ordering Provid er: CHACHO GOMEZ Report Released Date/Time: May 21, 2021 03:59 PM Reporting Lab: [facility] [address] [facility] [address] Performing Lab: [facility] [address] [facility] [address] FOLATE >20.0 >7.0 Sep 15, 2021 09:35 AM [facility] B 12 Specim en Type: SERUM No comment enter ed. Ordering Provid er: CHACHO GOMEZ Report Released Date/Time: May 21, 2021 03:59 PM Reporting Lab: [facility] [address] [facility] [address] Performing Lab: [facility] [address] [facility] [address] B 12 [phone] Sep 15, 2021 09:35 AM [facility] IRON GROUP Specim en Type: SERUM No comment enter ed. Ordering Provid er: CHACHO GOMEZ Report Released Date/Time: May 21, 2021 03:59 PM Reporting Lab: [facility] [address] [facility] [address] Performing Lab: [facility] [address] [facility] [address] IRON 71 65-175 TIBC,CALCULATED 258 250-425 FERRITIN 195.5 21.8-274.7 IRON SATURATION 28 20-50 TRANSFERRIN [phone] Sep 15, 2021 [facility] LIPID PANEL,NON-FASTING Spec imen Type: PLASMA 09:35 AM Comment: Dee Pierre Performed Ordering Provid er: LIAM MEJIA Report Released Date/Time: May 29, 2021 05:51 PM Reporting Lab: [facility] [address] [facility] [address] Performing Lab: [facility] Sep 15, 2021 [facility] EXTRA PURPLE TUBE Specimen T ype: BLOOD 09:35 AM No comment enter ed. Ordering Provid er: LIAM MEJIA Report Released Date/Time: Sep 15, 2021 09:39 AM Reporting Lab: [facility] [address] [facility] [address] Performing Lab: [facility] [address] [facility] [address] EXTRA PURPLE TUBE RECEIVED Sep 15, 2021 09:35 [facility] TSH W/REFLEX TO FREE Spec imen Type: PLASMA AM T4 No comment enter ed. Ordering Provid er: LIAM MEJIA Report Released Date/Time: May 29, 2021 05:51 PM Reporting Lab: [facility] [address] [facility] [address] Performing Lab: [facility] [address] TSH 1.72 0.35-4.94 Sep 15, 2021 09:35 AM [facility] CBC & DIFF Specim en Type: BLOOD Comment: Automa kerrie Differential Performed Ordering Provid er: CHACHO GOMEZ Report Released Date/Time: May 21, 2021 03:59 PM Reporting Lab: [facility] [address] Performing Lab: [facility] [address] WBC 7.54 4.0-11.0 RBC 4.22 L 4.6-6.2 [...] .RETICULOCYTE HE 34.2 28.2-36.6 Aug 22, 2021 [facility] COVID-19 AND FLU/RSV DIAG Sp ecimen Type: NASOPHARYNGEAL 11:47 AM PANEL(CEPHEID) Comment: Cephei d GeneXpert (618) Ordering Provid er: CECILIA REYES Report Released Date/Time: Aug 22, 2021 11:33 AM Reporting Lab: [facility] [address] Performing Lab: [facility] [address] COVID-19 (CEPHEID) Not Detected Not Dete cted INFLUENZA A (PCR) Not Detected Not Detec kerrie INFLUENZA B (PCR) Not Detected Not Detec kerrie RSV (PCR) Not Detected Not Detected Social History: Smoking Status (Most current) and Tobacco Use (All prior to encounter date) This section includes the most current, and the historical, smoking and tobacco-related health factors from the ME facility where the Encounter took place.Current Smoking Status This section includes the most current smoking, or tobacco-related health factor, from the [facility] where the Encounter took place. Date/Time Current Smoking Status Comment Facility May 26, 2021 03:30 PM VA-TOBACCO FORMER USER [facility] Tobacco Use History This section includes a history of the smoking, or tobacco- related health factors, that were collected on or before the date of the Encounter. The data comes from the [facility] where the Encounter took place. Date/Time Smoking Status/Tobacco Use Comment Facil it May 26, 2021 03:30 PM VA-TOBACCO QUIT 15 YRS OR MORE [facility] Jul 05, 2020 06:42 PM VA-TOBACCO FORMER USER [facility] Jan 09, 2018 02:01 PM VA-TOBACCO FORMER USER [facility] Jan 09, 2018 02:01 PM VA-TOBACCO QUIT 5 TO < 15 YRS [facility] Apr 16, 2017 10:17 AM FORMER TOBACCO USER 7Y OR GREATER [facility] Jun 09, 2016 10:03 AM FORMER TOBACCO USER 7Y OR GREATER [facility] May 06, 2015 08:19 AM FORMER TOBACCO USER 7Y OR GREATER [facility] Advance Directives: All historical and current Section Date Range: From patient's date of to the date document was created. This section includes ALL of a patient's completed or amended ME Advance and Rescinded Directives. The entries below indicate that a directive exists for the patient, but an actual copy is not included with this document. The data comes from all [facility]. Date Advance Directives Provider Source July 24, 2021 ADVANCE DIRECTIVE PAPA LEWIS [facility] July 24, 2021 ADVANCE DIRECTIVE DISCUSSION PAPA LEWIS [facility] Radiology Reports: +/- 30 days of the [...] the Encounter. The data comes from all ME treatment facilities. Date/Time Radiology Report Provider Source Sep 15, 2021 10:[address] (CAP) CHEST/ABD/PELVIS (P): Dimitri DACOSTA [facility] ANDER LOCKWOOD [id number] -[birth year], [birth year] 8 M Exm Date: SEP 15, 2021@10:12 Req Phys: PATRICIA,CHACHO Pat Loc: [facility] HEM ONC PHON E PATRICIA (Req'g Img Loc: CT IMAGING Service: Unknown (Case [id number] COMPLETE) CT (CAP) CHEST W CONTRAST ( CT Detailed) CPT:21370 Contrast Media : Non-ionic Iodinated Reason for Study: follicular lymphoma, NSCLC, R renal lesion (Case [id number] COMPLETE) CT (CAP) ABDOMEN/PELVIS W C ONTRAS(CT Detailed) CPT:94535 Contrast Media : Non-ionic Iodinated Clinical History: [...] pager listed below: User placing orders pager: [phone] LAST 3: Collection DT Specimen Test Name [...] 15, 2021 Date Verified: SEP 15, 2021 [facility] E-Sig:/ES/JASPREET DACOSTA MD Report: EXAM: CT chest, [...] Staff: JASPREET DACOSTA MD, STAFF NUCLEAR RADIOLOGIST ([facility]) /CPD Aug 22, 2021 12:53 PM CHEST 2 VIEWS PA AND LAT: MARCO A HURTADO [facility] ANDER LOCKWOOD [id number] -[birth year], [birth year] 8 M Exm Date: AUG 22, 2021@12:53 Req Phys: CECILIA REYES Loc: [facility] EMERGENCY DEP T WALK-IN (Re Img Loc: MAIN X-RAY Service: Unknown (Case [id number] COMPLETE) CHEST 2 VIEWS PA AND LAT (RA D Detailed) CPT:90438 Reason for Study: r/o pneumonia Clinical History: [place] IS NOT under investigation for COVID-19 or is COVID-19 negative cough, fever, chills, h/o lobectomy Responsible provider name and phone number to notify for critical finding s if other than user placing the order and pager listed below: User placing orders pager: LAST CREATININE 1.2 (05/20/21) Report Status: Verified Date Reported: AUG 22, 2021 Date Verified: AUG 22, 2021 [facility] E-Sig:/ES/MARCO A HURTADO DO Report: EXAMINATION: CHEST [...] pulmonary process. Primary Interpreting Staff: MARCO A D. BRYANT, DO, RADIOLOGIST ([facility]) /DDS Encounter Notes: All associated encounter notes This section contains the clinical notes associated to the Encounter. Date/Time Encounter Note(s) Provider Source Sep 01, 2021 11:33 AM REPORT OF CONTACT: [place] ARIADNA [facility] LOCAL TITLE: PATIENT CONTACT NOTE YAYA GUNTER STANDARD TITLE: REPORT OF CONTACT DATE OF NOTE: SEP 01, 2021@11:33 ENTRY DATE: SEP 01, 2021@11:33:31 AUTHOR: QUIN AMES COSIGNER: URGENCY: STATUS: COMPLETED Patient contact Name of : ANDER LOCKWOOD Name/Relationship of Contact if other than Veter an: Date & Time of Contact: Aug@11:33 Type of Contact: Telephone Reason for Contact: Patient's next appointments are scheduled: [facility] 3v Lab Draw 09/15/2021@09:[address] [facility] 09/15/2021@10:00 [facility] Hem Onc Phone Samuel 09/23/2021@11:00 He asked that you call him on his cell phone - as I might be fishing. /shalonda/ JAY GUNTER RUG DYER Signed: 09/01/2021 11:34 Receipt Acknowledged By: * AWAITING SIGNATURE * DENG LOUISE
--- OUTSIDE RECORDS SUMMARY | 2021-11-18 09:11 | XMS_ITS | Encounter Summary ---
:[address] [facility] Address [address] [place] [id number] Support Name Relationship Address Phone SILKE LOCKWOOD Unavailable [id number] [address] SILKE LOCKWOOD Unavailable [id number] [place] [address] Insurance Providers: All historical and current Section Date Range: From patient's date of to the date document was created.This section includes the names of all active insurance providers for the patient. Insurance Type of Plan Start of End of Group Member Insurance Policy P atient's Provider Coverage Name Policy Policy Number ID Provider's Victor's Relationship Coverage Coverage Telephone Name to Policy Number Victro [place] Jun 10, [id number] MANDIE Pabon [facility]WNR) 2019 [id number] [phone] ,ANDER Bennett [place] Jun 10, [id number] [place] P [facility] (WNR) 2018 [id number] [phone] ,ANDER Bennett Selected Encounter This section includes the information on record at [place] for the Encounter. Date/Time Encounter Type Encounter Reason Provider Source Description Aug 30, 2021 10:05 Outpatient PULMONARY/CHEST ALICIA LIGHT AM Encounter S IHE Encounter Template Text not used by AR Plan of Treatment: Future Appointments (+ 6 months) and Future Tests (+/- 45 days) The Plan of Treatment section includes future care activities for the patient from all [place] treatmentfacilities. This section includes future appointments and future orders which are active, pending orscheduled.Future Appointments This section includes appointments that were scheduled to occur 6 months from the date of the Encounter, up to a maximum of 20 appointments. The data comes from all [place] treatment [facility]. Appointment Date/Time Appointment Type Appointment Facili ty Name Sep 15, 2021 09:00 AM AMBULATORY - MEDICINE [facility] Sep 15, 2021 09:30 AM AMBULATORY - MEDICINE [facility] Sep 15, 2021 10:00 AM AMBULATORY - NONE [facility] Oct 03, 2021 01:39 PM AMBULATORY - NONE [facility] Oct 03, 2021 01:42 PM AMBULATORY - NONE [facility] Oct 04, 2021 07:51 PM AMBULATORY - NONE [facility] Oct 14, 2021 10:30 AM AMBULATORY - MEDICINE [facility] Oct 25, 2021 12:27 PM AMBULATORY - NONE [facility] Oct 27, 2021 08:30 AM AMBULATORY - MEDICINE [facility] Oct 27, 2021 09:00 AM AMBULATORY - NONE [facility] Nov 02, 2021 09:00 AM AMBULATORY - MEDICINE [facility] Nov 15, 2021 10:00 AM AMBULATORY - NONE [facility] Nov 17, 2021 10:00 AM AMBULATORY - SURGERY [facility] Dec 15, 2021 04:00 PM AMBULATORY - MEDICINE [facility] Active, Pending, and Scheduled Orders This section includes a listing of several types of active, pending, and scheduled orders, including clinic medications orders, diagnostic test orders, procedure orders and consult orders; where the start date of the order is 45 days before the date of the Encounter or 45 days after the date of the Encounter. The data comes from all [facility]. Test Date/Time Test Type Test Details Facility Name Oct 14, 2021 10:49 AM Consult Order [facility] Cons C Software Developer's Choice Lab Results: +/- 30 days of the encounter This section includes the Chemistry and Hematology Lab Results on record with AR for the patient. Radiology Reports and Pathology Reports are provided separately, in subsequent sections.Lab Results This section contains the Chemistry/Hematology Results that were resulted 30 days before or 30 daysafter the date of the Encounter. Date/Time Source Result Type Result - Unit Interpretation Reference Range Comment Sep 15, 2021 10:02 AM [facility] POC CREATININE Specim en Type: BLOOD No comment enter ed. Ordering Provid er: LIAM MEJIA Report Released Date/Time: Sep 15, 2021 10:02 AM Reporting Lab: [facility] [address] [facility] [address] Performing Lab: [facility] [address] [facility] [address] POC CREATININE 1.2 0.6-1.3 Sep 15, 2021 09:35 AM [facility] EXTRA MINT TUBE Specim en Type: PLASMA No comment enter ed. Ordering Provid er: JACKIELIAM Report Released Date/Time: Sep 15, 2021 09:39 AM Reporting Lab: [facility] [address] [facility] [address] Performing Lab: [facility] [address] [facility] [address] EXTRA MINT TUBE RECEIVED Sep 15, 2021 [facility] COMPREHENSIVE METABOLIC Spec imen Type: PLASMA 09:35 AM PANEL+MG Comment: Automsegun sy Differential Performed Ordering Provid er: CHACHO GOMEZ Report Released Date/Time: May 21, 2021 03:59 PM Reporting Lab: [facility] [address] [facility] [address] Performing Lab: [facility] Sep 15, 2021 [facility] LD,TOTAL Specimen Typ e: PLASMA 09:35 AM No comment enter ed. Ordering Provid er: CHACHO GOMEZ Report Released Date/Time: May 21, 2021 03:59 PM Reporting Lab: [facility] [address] [facility] [address] Performing Lab: [facility] [address] [facility] [address] LD,TOTAL [phone] Sep 15, 2021 09:35 AM [facility] RETICS Specim en Type: BLOOD Comment: Automsegun ys Differential Performed Ordering Provid er: CHACHO GOMEZ Report Released Date/Time: May 21, 2021 03:59 PM Reporting Lab: [facility] [address] [facility] [address] Performing Lab: [facility] [address] [facility] [address] ABS RETIC 0.0751 0.0300-0.1000 .RETICULOCYTE 1.78 0.6-2.0 IMMATURE RETIC 12.5 1.0-14.0 .RETICULOCYTE HE 34.2 28.2-36.6 Sep 15, 2021 09:35 AM [facility] FOLATE Specim en Type: SERUM No comment enter ed. Ordering Provid er: CHACHO GOMEZ Report Released Date/Time: May 21, 2021 03:59 PM Reporting Lab: [facility] [address] [facility] [address] Performing Lab: [facility] [address] [facility] [address] FOLATE >20.0 >7.0 Sep 15, 2021 09:35 AM [facility] IRON GROUP Specim en Type: SERUM No comment enter ed. Ordering Provid er: CHACHO GOMEZ Report Released Date/Time: May 21, 2021 03:59 PM Reporting Lab: [facility] [address] [facility] [address] Performing Lab: [facility] [address] [facility] [address] IRON 71 65-175 TIBC,CALCULATED 258 250-425 FERRITIN 195.5 21.8-274.7 IRON SATURATION 28 20-50 TRANSFERRIN [phone] Sep 15, 2021 09:35 AM [facility] B 12 Specim en Type: SERUM No comment enter ed. Ordering Provid er: CHACHO GOMEZ Report Released Date/Time: May 21, 2021 03:59 PM Reporting Lab: [facility] [address] [facility] [address] Performing Lab: [facility] [address] [facility] [address] B 12 [phone] Sep 15, 2021 [facility] LIPID PANEL,NON-FASTING Spec imen Type: PLASMA 09:35 AM Comment: Dee Pierre Performed Ordering Provid er: LIAM MEJIA Report Released Date/Time: May 29, 2021 05:51 PM Reporting Lab: [facility] [address] Performing Lab: [facility] Sep 15, 2021 [facility] TSH W/REFLEX TO FREE T4 Spec imen Type: PLASMA 09:35 AM No comment enter ed. Ordering Provid er: LIAM MEJIA Report Released Date/Time: May 29, 2021 05:51 PM Reporting Lab: [facility] [address] [facility] [address] Performing Lab: [facility] [address] [facility] [address] TSH 1.72 0.35-4.94 Sep 15, 2021 09:35 [facility] EXTRA PURPLE TUBE Specime n Type: BLOOD AM No comment enter ed. Ordering Provid er: LIAM MEJIA Report Released Date/Time: Sep 15, 2021 09:39 AM Reporting Lab: [facility] [address] Performing Lab: [facility] [address] EXTRA PURPLE TUBE RECEIVED Sep 15, 2021 09:35 AM [facility] CBC & DIFF Specim en Type: BLOOD Comment: Automa kerrie Differential Performed Ordering Provid er: CHACHO GOMEZ Report Released Date/Time: May 21, 2021 03:59 PM Reporting Lab: [facility] [address] Performing Lab: [facility] [address] WBC 7.54 4.0-11.0 RBC 4.22 L 4.6-6.2 [...] .RETICULOCYTE HE 34.2 28.2-36.6 Aug 22, 2021 [facility] COVID-19 AND FLU/RSV DIAG Sp ecimen Type: NASOPHARYNGEAL 11:47 AM PANEL(CEPHEID) Comment: Cepmarjani rakesh GeneXpert (618) Ordering Provid er: CECILIA REYES Report Released Date/Time: Aug 22, 2021 11:33 AM Reporting Lab: [facility] [address] Performing Lab: [facility] [address] COVID-19 (CEPHEID) Not Detected Not Dete cted INFLUENZA A (PCR) Not Detected Not Detec kerrie INFLUENZA B (PCR) Not Detected Not Detec kerrie RSV (PCR) Not Detected Not Detected Social History: Smoking Status (Most current) and Tobacco Use (All prior to encounter date) This section includes the most current, and the historical, smoking and tobacco-related health factors from the [place] facility where the Encounter took place.Current Smoking Status This section includes the most current smoking, or tobacco-related health factor, from the AR facility where the Encounter took place. Date/Time Current Smoking Status Comment Facility May 26, 2021 03:30 PM VA-TOBACCO FORMER USER [facility] Tobacco Use History This section includes a history of the smoking, or tobacco- related health factors, that were collected on or before the date of the Encounter. The data comes from the [facility] where the Encounter took place. Date/Time Smoking Status/Tobacco Use Comment Facil it May 26, 2021 03:30 PM VA-TOBACCO QUIT 15 YRS OR MORE [facility] Jul 05, 2020 06:42 PM VA-TOBACCO FORMER USER [facility] Jan 09, 2018 02:01 PM VA-TOBACCO FORMER USER [facility] Jan 09, 2018 02:01 PM VA-TOBACCO QUIT 5 TO < 15 YRS [facility] Apr 16, 2017 10:17 AM FORMER TOBACCO USER 7Y OR GREATER [facility] Jun 09, 2016 10:03 AM FORMER TOBACCO USER 7Y OR GREATER [facility] May 06, 2015 08:19 AM FORMER TOBACCO USER 7Y OR GREATER [facility] Advance Directives: All historical and current Section Date Range: From patient's date of to the date document was created. This section includes ALL of a patient's completed or amended [place] Advance and Rescinded Directives. The entries below indicate that a directive exists for the patient, but an actual copy is not included with this document. The data comes from all [facility]. Date Advance Directives Provider Source July 24, 2021 ADVANCE DIRECTIVE PAPA LEWIS [facility] July 24, 2021 ADVANCE DIRECTIVE DISCUSSION PAPA LEWIS [facility] Radiology Reports: +/- 30 days of [...] the Encounter. The data comes from all [place] treatment facilities. Date/Time Radiology Report Provider Source Sep 15, 2021 10:[address] (CAP) CHEST/ABD/PELVIS (P): Dimitri DACOSTA [facility] ANDER LOCKWOOD [id number] -[birth year], [birth year] 8 M Exm Date: SEP 15, 2021@10:12 Req Phys: PATRICIA,CHACHO Pat Loc: [facility] HEM ONC PHON E PATRICIA (Req'g Img Loc: CT IMAGING Service: Unknown (Case [id number] COMPLETE) CT (CAP) CHEST W CONTRAST ( CT Detailed) CPT:31406 Contrast Media : Non-ionic Iodinated Reason for Study: follicular lymphoma, NSCLC, R renal lesion (Case [id number] COMPLETE) CT (CAP) ABDOMEN/PELVIS W C ONTRAS(CT Detailed) CPT:46448 Contrast Media : Non-ionic Iodinated Clinical History: [...] pager listed below: User placing orders pager: [phone] LAST 3: Collection DT Specimen Test Name [...] 15, 2021 Date Verified: SEP 15, 2021 Zipper Trimmer E-Sig:/ES/JASPREET DACOSTA MD Report: EXAM: CT chest, [...] Staff: JASPREET DACOSTA MD, STAFF NUCLEAR RADIOLOGIST (Zipper Trimmer) /CPD Aug 22, 2021 12:53 PM CHEST 2 VIEWS PA AND LAT: MARCO A HURTADO [facility] ANDER LOCKWOOD [id number] -[birth year], [birth year] 8 M Exm Date: AUG 22, 2021@12:53 Req Phys: CECILIA REYES Loc: [facility] EMERGENCY DEP T WALK-IN (Re Img Loc: MAIN X-RAY Service: Unknown (Case [id number] COMPLETE) CHEST 2 VIEWS PA AND LAT (RA D Detailed) CPT:71873 Reason for Study: r/o pneumonia Clinical History: [...] 22, 2021 Date Verified: AUG 22, 2021 Zipper Trimmer E-Sig:/ES/MARCO A HURTADO DO Report: EXAMINATION: CHEST [...] Interpreting Staff: MARCO A HURTADO DO, RADIOLOGIST (Zipper Trimmer) /DDS Encounter Notes: All associated encounter notes This section contains the clinical notes associated to the Encounter. Date/Time Encounter Note(s) Provider Source Aug 30, 2021 10:05 PULMONARY SECURE MESSAGING: FLORENTINO LIGHT [facility] TITLE: PULMONARY SECURE MESSAGING STANDARD TITLE: PULMONARY SECURE MESSAGING DATE OF NOTE: AUG 30, 2021@10:05 ENTRY DATE: AUG 30, 2021@10:05:17 AUTHOR: FLORENTINO LIGHT EXP COSIGNER: URGENCY: STATUS: COMPLETED PULMONARY SECURE MESSAGING Has ADDENDA ------Original Message Sent: 08/29/2021 01:30 PM ET From: ANDER LOCKWOOD To: [facility]-Pulmonary - @ Subject: Medication:Medication renewal and medic ation question Would you please renew my prescription for DILTI AZEM (EQV-TIAZAC) 180MG 24HR CAP RX#[id number] Also, I was seen in ER on 08/22 for bronchitis. I am getting better, but the cough syrup scrip is gone. Are there OTC cough and expectorants I can take, if needed, that won't affect my heart issues? Thank you, Ander Lockwood ------Original Message Sent: 08/30/2021 11:04 AM ET From: FLORENTINO LIGHT To: ANDER LOCKWOOD Subject: Medication:Medication renewal and medic ation question Sierra Lockwood, It appears your Diltiazem prescription was renew ed this morning. I have forwarded your message on to your Primary Care Provider who can answer questions regarding your cough medication questi on. Kind Regards, Florentino HOLLOWAY /shalonda/ FLORENTINO LIGHT RN Staff Nurse/Pulmonary Cutting Room Supervisor Signed: 08/30/2021 10:05 Receipt Acknowledged By: 08/31/2021 07:48 /shalonda/ SOPHY AndresN, RN, AMB-BC, CLC PACT area field worker for MARIA LUZ MANCERA 08/30/2021 17:52 /rubén MEJIA MD STAFF PHYSICIAN 08/30/2021 ADDENDUM STATUS: COMPLETED In response to the above inquiry, it appears huber t both guaifenesin and dextromethorphan can increase heart rate . Pt with problems with afib/RVR. Will ask PACT pharmacist to comment upon the above in quiry regarding cough suppressants. /rubén MEJIA MD STAFF PHYSICIAN Signed: 08/30/2021 17:53 Receipt Acknowledged By: 08/31/2021 11:42 /rubén GEORGE Pharmacist 08/31/2021 ADDENDUM STATUS: COMPLETED Adverse reactions associated to Dextromethorphan include dizziness, drowsiness, nervousness, restlessness, GI distress, nausea, stomach pain, vomiting. Notable Dextromethorphan abuse/poisoning can cau se irregluar heartbeat. Adverse reactions associated to Guaifenesin incl ude dizziness, drowsiness, headache, skin rash, hypouresemia, nausea, stoma ch pain, vomiting, nephrolithiasis. Would be reasonable to use at appropriate dosage /intervals. /rubén GEORGE Pharmacist Signed: 08/31/2021 11:42 Receipt Acknowledged By: 09/01/2021 11:22 /rubén MEJIA MD STAFF PHYSICIAN 09/01/2021 ADDENDUM STATUS: COMPLETED In light of above pharmacy c casey, Guaifenesin has been ordered for ariella mail out. Will ask PC RN to advise pt of same. This fam mckeon is appreciative. /rubén MEJIA MD STAFF PHYSICIAN Signed: 09/01/2021 11:23 Receipt Acknowledged By: 09/01/2021 13:38 /rubén GALINDO RN REGISTERED NURSE for MARIA LUZ MANCERA 09/01/2021 ADDENDUM STATUS: COMPLETED Called and spoke with patient to follow up with request from PCP. Informed patient that Guaifenesin has been ordered and set for mail out ariella. Patient was thankful for follow up call. /rubén GALINDO RN REGISTERED NURSE Signed: 09/01/2021 13:43
--- OUTSIDE RECORDS SUMMARY | 2021-11-18 09:12 | XMS_ITS | Encounter Summary ---
:1945 Author Organization [facility] Address [address] [place] [id number] Support Name Relationship Address Phone SILKE LOCKWOOD Unavailable [id number] [place] [phone] SILKE LOCKWOOD Unavailable [id number] [place] [phone] Insurance Providers: All historical and current Section [...] [place] Jun 10, [id number] [facility] (WNR) 2020 8 [id number] [phone] ,ANDER Bennett [place] Jun 10, [id number] ATIENT [facility] (WNR) ADVANTAGE (WNR) 2018 3 [id number] [phone] ,ANDER Bennett Selected Encounter This section includes the information on record at [place] for the Encounter. Date/Time Encounter Type Encounter Description Reason Provider Source Aug 16, 2021 12:00 Outpatient Encounter EVENT (HISTORICAL) AM IHE Encounter Template Text not used [...] data comes from all [place] treatment facilities. Appointment Date/Time Appointment Type Appointment Facili ty Name Aug 22, 2021 10:28 AM AMBULATORY - MEDICINE [facility] CS Sep 15, 2021 09:00 AM AMBULATORY - MEDICINE [facility] CS Sep 15, 2021 09:30 AM AMBULATORY - MEDICINE [facility] CS Sep 15, 2021 10:00 AM AMBULATORY - NONE [facility] Oct 03, 2021 01:39 PM AMBULATORY - NONE [facility] Oct 03, 2021 01:42 PM AMBULATORY - NONE [facility] Oct 04, 2021 07:51 PM AMBULATORY - NONE [facility] Oct 14, 2021 10:30 AM AMBULATORY - MEDICINE [facility] CS Oct 25, 2021 12:27 PM AMBULATORY - NONE [facility] Oct 27, 2021 08:30 AM AMBULATORY - MEDICINE [facility] CS Oct 27, 2021 09:00 AM AMBULATORY - NONE [facility] Nov 02, 2021 09:00 AM AMBULATORY - MEDICINE [facility] CS Nov 15, 2021 10:00 AM AMBULATORY - NONE [facility] Nov 17, 2021 10:00 AM AMBULATORY - SURGERY [facility] S Dec 15, 2021 04:00 PM AMBULATORY - MEDICINE [facility] Lab Results: +/- 30 days of the [...] Range Comment Sep 15, 2021 10:02 AM [facility] POC CREATININE Specim en Type: BLOOD No comment enter ed. Ordering Provid er: LIAM MEJIA Report Released Date/Time: Sep 15, 2021 10:02 AM Reporting Lab: [facility] [address] [facility] [address] Performing Lab: [facility] [address] [facility] [address] POC CREATININE 1.2 0.6-1.3 Sep 15, 2021 09:35 AM [facility] EXTRA MINT TUBE Specim en Type: PLASMA No comment enter ed. Ordering Provid er: LIAM MEJIA Report Released Date/Time: Sep 15, 2021 09:39 AM Reporting Lab: [facility] [address] [facility] [address] Performing Lab: [facility] [address] [facility] [address] EXTRA MINT TUBE RECEIVED Sep 15, 2021 [facility] COMPREHENSIVE METABOLIC Spec imen Type: PLASMA 09:35 AM PANEL+MG Comment: Automsegun sy Differential Performed Ordering Provid er: PATRICIA,CHACHO Report Released Date/Time: May 21, 2021 03:59 PM Reporting Lab: [facility] [address] [facility] [address] Performing Lab: [facility] Sep 15, 2021 [facility] RETICS Specimen Typ e: BLOOD 09:35 AM Comment: Automsegun sy Differential Performed Ordering Provid er: PATRICIACHACHO Report Released Date/Time: May 21, 2021 03:59 PM Reporting Lab: [facility] [address] [facility] [address] Performing Lab: [facility] [address] [facility] [address] ABS RETIC 0.0751 0.0300-0.1000 .RETICULOCYTE 1.78 0.6-2.0 IMMATURE RETIC 12.5 1.0-14.0 .RETICULOCYTE HE 34.2 28.2-36.6 Sep 15, 2021 09:35 AM [facility] LD,TOTAL Specim en Type: PLASMA No comment enter ed. Ordering Provid er: PATRICIACHACHO Report Released Date/Time: May 21, 2021 03:59 PM Reporting Lab: [facility] [address] [facility] [address] Performing Lab: [facility] [address] [facility] [address] LD,TOTAL 148 125-220 Sep 15, 2021 09:35 AM [facility] B 12 Specim en Type: SERUM No comment enter ed. Ordering Provid er: CHACHO GOMEZ Report Released Date/Time: May 21, 2021 03:59 PM Reporting Lab: [facility] [address] [facility] [address] Performing Lab: [facility] [address] [facility] [address] B 12 [phone] Sep 15, 2021 09:35 AM [facility] FOLATE Specim en Type: SERUM No comment enter ed. Ordering Provid er: CHACHO GOMEZ Report Released Date/Time: May 21, 2021 03:59 PM Reporting Lab: [facility] [address] [facility] [address] Performing Lab: [facility] [address] [facility] [address] FOLATE >20.0 >7.0 Sep 15, 2021 09:35 AM [facility] IRON GROUP Specim en Type: SERUM No comment enter ed. Ordering Provid er: CHACHO GOMEZ Report Released Date/Time: May 21, 2021 03:59 PM Reporting Lab: [facility] [address] [facility] [address] Performing Lab: [facility] [address] [facility] [address] IRON 71 65-175 TIBC,CALCULATED 258 250-425 FERRITIN 195.5 21.8-274.7 IRON SATURATION 28 20-50 TRANSFERRIN [phone] Sep 15, 2021 [facility] LIPID PANEL,NON-FASTING Spec imen Type: PLASMA 09:35 AM Comment: Automsegun kerrie Differential Performed Ordering Provid er: LIAM MEJIA Report Released Date/Time: May 29, 2021 05:51 PM Reporting Lab: [facility] [address] [facility] [address] Performing Lab: [facility] Sep 15, 2021 [facility] TSH W/REFLEX TO FREE T4 Spec imen Type: PLASMA 09:35 AM No comment enter ed. Ordering Provid er: LIAM MEJIA Report Released Date/Time: May 29, 2021 05:51 PM Reporting Lab: [facility] [address] [facility] [address] Performing Lab: [facility] [address] [facility] [address] TSH 1.72 0.35-4.94 Sep 15, 2021 09:35 [facility] EXTRA PURPLE TUBE Specime n Type: BLOOD AM No comment enter ed. Ordering Provid er: LIAM MEJIA Report Released Date/Time: Sep 15, 2021 09:39 AM Reporting Lab: [facility] [address] [facility] [address] Performing Lab: [facility] [address] [facility] [address] EXTRA PURPLE TUBE RECEIVED Sep 15, 2021 09:35 AM [facility] CBC & DIFF Specim en Type: BLOOD Comment: Automa kerrie Differential Performed Ordering Provid er: CHACHO GOMEZ Report Released Date/Time: May 21, 2021 03:59 PM Reporting Lab: [facility] [address] Performing Lab: [facility] [address] WBC 7.54 4.0-11.0 RBC 4.22 L 4.6-6.2 [...] .RETICULOCYTE HE 34.2 28.2-36.6 Aug 22, 2021 [facility] COVID-19 AND FLU/RSV DIAG Sp ecimen Type: NASOPHARYNGEAL 11:47 AM PANEL(CEPHEID) Comment: Austin cameron GeneXpert (618) Ordering Provid er: CECILIA REYES Report Released Date/Time: Aug 22, 2021 11:33 AM Reporting Lab: [facility] [address] Performing Lab: [facility] [address] COVID-19 (CEPHEID) Not Detected Not Dete cted [...] 2021 03:30 PM VA-TOBACCO FORMER USER [facility] Tobacco Use History This section includes a history of the smoking, or tobacco- related health factors, that were collected on or before the date of the Encounter. The data comes from the [place] facility where the Encounter took place. Date/Time Smoking Status/Tobacco Use Comment Facil ity May 26, 2021 03:30 PM VA-TOBACCO QUIT 15 YRS OR MORE [facility] Jul 05, 2020 06:42 PM VA-TOBACCO FORMER USER [facility] Jan 09, 2018 02:01 PM VA-TOBACCO FORMER USER [facility] Jan 09, 2018 02:01 PM VA-TOBACCO QUIT 5 TO < 15 YRS [facility] Apr 16, 2017 10:17 AM FORMER TOBACCO USER 7Y OR GREATER [facility] Jun 09, 2016 10:03 AM FORMER TOBACCO USER 7Y OR GREATER [facility] May 06, 2015 08:19 AM FORMER TOBACCO USER 7Y OR GREATER [facility] Advance Directives: All historical and current [...] Provider Source July 24, 2021 ADVANCE DIRECTIVE DISCUSSION [facility] July 24, 2021 ADVANCE DIRECTIVE [facility] Radiology Reports: +/- 30 days of [...] AM CT (CAP) CHEST/ABD/PELVIS (P): Dimitri DACOSTA [facility] ANDER LOCKWOOD RED [id number] [birth year], [birth year] 8 M Exm Date: SEP 15, 2021@10:12 Req Phys: CHACHO GOMEZ Pat Loc: [facility] HEM ONC PHON E PATRICIA (Req'g Img Loc: CT IMAGING Service: Unknown (Case [id number] COMPLETE) CT (CAP) CHEST W CONTRAST ( CT Detailed) CPT:57336 Contrast Media : Non-ionic Iodinated Reason for Study: follicular lymphoma, NSCLC, R renal lesion (Case [id number] COMPLETE) CT (CAP) ABDOMEN/PELVIS W C ONTRAS(CT Detailed) CPT:48219 Contrast Media : Non-ionic Iodinated Clinical History: [...] pager listed below: User placing orders pager: [phone] LAST 3: Collection DT Specimen Test Name [...] 15, 2021 Date Verified: SEP 15, 2021 [employer] E-Sig:/ES/JASPREET DACOSTA MD Report: EXAM: CT chest, [...] Staff: JASPREET DACOSTA MD, STAFF NUCLEAR RADIOLOGIST ([employer]) /CPD Aug 22, 2021 12:53 PM CHEST 2 VIEWS PA AND LAT: MARCO A HURTADO [facility] ANDER LOCKWOOD [id number] -[birth year], [birth year] 8 M Exm Date: AUG 22, 2021@12:53 Req Phys: CECILIA REYES Pat Loc: [facility] EMERGENCY DEP T WALK-IN (Re Img Loc: MAIN X-RAY Service: Unknown (Case [id number] COMPLETE) CHEST 2 VIEWS PA AND LAT (RA D Detailed) CPT:53848 Reason for Study: r/o pneumonia Clinical History: [...] 22, 2021 Date Verified: AUG 22, 2021 [employer] A[employer] E-Sig:/ES/MARCO A HURTADO DO Report: EXAMINATION: CHEST [...] Interpreting Staff: MARCO A HURTADO DO, RADIOLOGIST ([employer]) /DDS
--- OUTSIDE RECORDS SUMMARY | 2021-11-18 09:12 | XMS_ITS | Encounter Summary ---
:1945 Author Organization [facility] Address [address] [place] [address] Support Name Relationship Address Phone SILKE LOCKWOOD Unavailable [id number] [place] [phone] SILKE LOCKWOOD Unavailable [id number] [place] [phone] Insurance Providers: All historical and current Section [...] [place] Jun 10, [id number] [facility]WNR) 2019 8 [id number] [phone] ,ANDER Bennett [place] Jun 10, [id number] ATIENT [facility] (WNR) ADVANTAGE (WNR) 2018 3 [id number] [phone] ,ANDER Bennett Selected Encounter This section includes the information on record at [place] for the Encounter. Date/Time Encounter Type Encounter Description Reason Provider Source August 04, 2021 11:18 Outpatient Encounter PRIMARY CARE/MEDICINE AM IHE Encounter Template Text not used by [place] Plan of Treatment: Future Appointments (+ 6 months) and Future Tests (+/- 45 days) The Plan of Treatment section includes future care activities for the patient from all [place] treatmentfacilities. This section includes future appointments and future orders which are active, pending orscheduled.Future Appointments This section includes appointments that were scheduled to occur 6 months from the date of the Encounter, up to a maximum of 20 appointments. The data comes from all [place] treatment facilities. Appointment Date/Time Appointment Type Appointment Facili ty Name Aug 22, 2021 10:28 AM AMBULATORY - MEDICINE [facility] CS Sep 15, 2021 09:00 AM AMBULATORY - MEDICINE [facility] CS Sep 15, 2021 09:30 AM AMBULATORY - MEDICINE [facility] CS Sep 15, 2021 10:00 AM AMBULATORY - NONE [facility] Oct 03, 2021 01:39 PM AMBULATORY - NONE [facility] Oct 03, 2021 01:42 PM AMBULATORY - NONE [facility] Oct 04, 2021 07:51 PM AMBULATORY - NONE [facility] Oct 14, 2021 10:30 AM AMBULATORY - MEDICINE [facility] Oct 25, 2021 12:27 PM AMBULATORY - NONE [facility] Oct 27, 2021 08:30 AM AMBULATORY - MEDICINE [facility] CS Oct 27, 2021 09:00 AM AMBULATORY - NONE [facility] Nov 02, 2021 09:00 AM AMBULATORY - MEDICINE [facility] Nov 15, 2021 10:00 AM AMBULATORY - NONE [facility] Nov 17, 2021 10:00 AM AMBULATORY - SURGERY [facility] S Dec 15, 2021 04:00 PM AMBULATORY - MEDICINE [facility] Lab Results: +/- 30 days of the encounter This section includes the Chemistry and Hematology Lab Results on record with [facility] for the patient. Radiology Reports and Pathology Reports are provided separately, in subsequent sections.Lab Results This section contains the Chemistry/Hematology Results that were resulted 30 days before or 30 daysafter the date of the Encounter. Date/Time Source Result Type Result - Unit Interpretation Reference Range Comment Aug 22, 2021 [facility] COVID-19 AND FLU/RSV DIAG Sp ecimen Type: NASOPHARYNGEAL 11:47 AM PANEL(CEPHEID) Comment: Austin cameron GeneXpert (618) Ordering Provid er: CECILIA REYES Report Released Date/Time: Aug 22, 2021 11:33 AM Reporting Lab: [facility] [address] [facility] [address] Performing Lab: [facility] [address] [facility] [address] COVID-19 (CEPHEID) Not Detected Not Dete cted INFLUENZA A (PCR) Not Detected Not Detec kerrie INFLUENZA B (PCR) Not Detected Not Detec kerrie RSV (PCR) Not Detected Not Detected Social History: Smoking Status (Most current) and Tobacco Use (All prior to encounter date) This section includes the most current, and the historical, smoking and tobacco-related health factors from the [place] facility where the Encounter took place.Current Smoking Status This section includes the most current smoking, or tobacco-related health factor, from the [place] facility where the Encounter took place. Date/Time Current Smoking Status Comment Facility May 26, 2021 03:30 PM VA-TOBACCO FORMER USER [facility] Tobacco Use History This section includes a history of the smoking, or tobacco- related health factors, that were collected on or before the date of the Encounter. The data comes from the [facility] where the Encounter took place. Date/Time Smoking Status/Tobacco Use Comment [facility] it May 26, 2021 03:30 PM VA-TOBACCO QUIT 15 YRS OR MORE [facility] Jul 05, 2020 06:42 PM VA-TOBACCO FORMER USER [facility] Jan 09, 2018 02:01 PM VA-TOBACCO FORMER USER [facility] Jan 09, 2018 02:01 PM VA-TOBACCO QUIT 5 TO < 15 YRS [facility] Apr 16, 2017 10:17 AM FORMER TOBACCO USER 7Y OR GREATER [facility] Jun 09, 2016 10:03 AM FORMER TOBACCO USER 7Y OR GREATER [facility] May 06, 2015 08:19 AM FORMER TOBACCO USER 7Y OR GREATER [facility] Advance Directives: All historical and current Section Date Range: From patient's date of to the date document was created. This section includes ALL of a patient's completed or amended [place] Advance and Rescinded Directives. The entries below indicate that a directive exists for the patient, but an actual copy is not included with this document. The data comes from all [facility]. Date Advance Directives Provider Source July 24, 2021 ADVANCE DIRECTIVE [facility] July 24, 2021 ADVANCE DIRECTIVE DISCUSSION [facility] Radiology Reports: +/- 30 days of the [...] the Encounter. The data comes from all [place] treatment facilities. Date/Time Radiology Report Provider Source Aug 22, 2021 12:53 PM CHEST 2 VIEWS PA AND LAT: MARCO A HURTADO [facility] ANDER LOCKWOOD [id number] -[birth year], [birth year] 8 M Exm Date: AUG 22, 2021@12:53 Req Phys: CECILIA REYES Pat Loc: [facility] EMERGENCY DEP T WALK-IN (Re Img Loc: MAIN X-RAY Service: Unknown (Case [id number] COMPLETE) CHEST 2 VIEWS PA AND LAT (RA D Detailed) CPT:74395 Reason for Study: r/o pneumonia Clinical History: [place] IS NOT under investigation for COVID-19 or is COVID-19 negative cough, fever, chills, h/o lobectomy Responsible provider name and phone number to notify for critical finding s if other than user placing the order and pager listed below: User placing orders pager: LAST CREATININE 1.2 (05/20/21) Report Status: Verified Date Reported: AUG 22, 2021 Date Verified: AUG 22, 2021 Player Manager E-Sig:/ES/MARCO A HURTAOD DO Report: EXAMINATION: CHEST 2 VIEWS PA [...] Interpreting Staff: MARCO A HURTADO DO, RADIOLOGIST (Player Manager) /DDS Encounter Notes: All associated encounter notes This section contains the clinical notes associated to the Encounter. Date/Time Encounter Note(s) Provider Source August 04, 2021 11:18 AM HOME HEALTH REFERRAL NOTE: ARELY HU [facility] LOCAL TITLE: [facility] HOME HEALTH CARE STANDARD TITLE: HOME HEALTH REFERRAL NOTE DATE OF NOTE: AUGUST 04, 2021@11:18 ENTRY DATE: AUGUST 04, 2021@11:18:08 AUTHOR: ARELY HU EXP COSIGNER: URGENCY: STATUS: COMPLETED HOME HEALTH CARE CERTIFICATION AND PLAN OF CARE SIGNED BY: Dr. watlon.. [facility] Certification period From: [id number] To: [id number] /es/ ARELY HU LEAD RN FORENSIC Signed: 08/04/2021 11:18
--- OUTSIDE RECORDS SUMMARY | 2021-11-18 09:13 | XMS_ITS | Encounter Summary ---
:1945 Author Organization [facility] Address [address] [place] [id number] Support Name Relationship Address Phone SILKE LOCKWOOD Unavailable [id number] [address] SILKE LOCKWOOD Unavailable [id number] [address] Insurance Providers: All historical and current Section [...] Victor [place] Jun 10, [id number] [facility]LY [facility] (WNR) ADVANTAGE (WNR) 2019 8 [id number] [phone] ,ANDER Bennett [place] Jun 10, [id number] [facility] [facility]WNR[facility] 2018 3 [id number] [phone] ,ANDER Bennett Selected Encounter This section includes the information on record at [place] for the Encounter. 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 Date/Time Primary/Secondary Diagnosis Name Provider Source Diagnosis July 13, 2021 PRIMARY Encounter for JAZMINE SANCHEZ [facility] 10:23 AM adjustment and HCS management of VAD Plan of Treatment: Future Appointments (+ 6 months) and Future Tests (+/- 45 days) The Plan of Treatment section includes future care activities for the patient [facility]. This section includes future appointments and future orders which are active, pending orscheduled.Future Appointments This section includes appointments that were scheduled to occur 6 months from the date of the Encounter, up to a maximum of 20 appointments. The data comes from all [place] treatment facilities. Appointment Date/Time Appointment Type Appointment Facili ty Name July 18, 2021 07:00 AM AMBULATORY - NONE [facility] Aug 22, 2021 10:28 AM AMBULATORY - MEDICINE [facility] Sep 15, 2021 09:00 AM AMBULATORY - MEDICINE [facility] Sep 15, 2021 09:30 AM AMBULATORY - MEDICINE [facility] Sep 15, 2021 10:00 AM AMBULATORY - NONE [facility] Oct 03, 2021 01:39 PM AMBULATORY - NONE [facility] Oct 03, 2021 01:42 PM AMBULATORY - NONE [facility] Oct 04, 2021 07:51 PM AMBULATORY - NONE [facility] Oct 14, 2021 10:30 AM AMBULATORY - MEDICINE [facility] Oct 25, 2021 12:27 PM AMBULATORY - NONE [facility] Oct 27, 2021 08:30 AM AMBULATORY - MEDICINE [facility] Oct 27, 2021 09:00 AM AMBULATORY - NONE [facility] Nov 02, 2021 09:00 AM AMBULATORY - MEDICINE [facility] Nov 15, 2021 10:00 AM AMBULATORY - NONE [facility] Nov 17, 2021 10:00 AM AMBULATORY - SURGERY [facility] Dec 15, 2021 04:00 PM AMBULATORY - MEDICINE [facility] Active, Pending, and Scheduled Orders This section includes a listing of several types of active, pending, and scheduled orders, including clinic medications orders, diagnostic test orders, procedure orders and consult orders; where the start date of the order is 45 days before the date of the Encounter or 45 days after the date of the Encounter. The data comes from all [place] treatment [facility]. Test Date/Time Test Type Test Details Facility Name Jun 01, 2021 12:00 AM Laboratory - Chemistry [facility] Jun 01, 2021 12:00 AM Laboratory - Chemistry [facility] Order Jun 01, 2021 12:00 AM Laboratory - Chemistry ELECTROLYTES/ANION GAP [facility] Order PLASMA SP Jun 01, 2021 12:00 AM Laboratory - Chemistry GLUCOSE PLASMA SP [place] [facility] Order Jun 01, 2021 12:00 AM Laboratory - Chemistry HEMOGLOBIN A1C BLOO D [facility] Order SP Jun 01, 2021 12:00 AM Laboratory - Chemistry AST/SGOT PLASMA SP [facility] Order Jun 01, 2021 12:00 AM Laboratory - Chemistry ALT/SGPT PLASMA SP [facility] Order Jun 01, 2021 12:00 AM Laboratory - Chemistry CREATININE(INCLUDES [facility] Order EGFR) PLASMA SP Jun 01, 2021 12:00 AM Laboratory - Chemistry LIPID [facility] Order PANEL,NON-FASTING PLASMA SP Jun 01, 2021 12:00 AM Laboratory - Chemistry TSH W/REFLEX TO [place] E [facility] Order T4 PLASMA SP Social History: Smoking Status (Most current) and Tobacco Use (All prior to encounter date) This section includes the most current, and the historical, smoking and tobacco-related health factors from the [place] facility where the Encounter took place.Current Smoking Status This section includes the most current smoking, or tobacco-related health factor, from the [place] facility where the Encounter took place. Date/Time Current Smoking Status Comment Facility May 26, 2021 03:30 PM VA-TOBACCO FORMER USER [facility] Tobacco Use History This section includes a history of the smoking, or tobacco- related health factors, that were collected on or before the date of the Encounter. The data comes from the [place] facility where the Encounter took place. Date/Time Smoking Status/Tobacco Use Comment Facil it May 26, 2021 03:30 PM VA-TOBACCO QUIT [address] [facility] Jul 05, 2020 06:42 PM VA-TOBACCO FORMER USER [facility] Jan 09, 2018 02:01 PM VA-TOBACCO FORMER USER [facility] Jan 09, 2018 02:01 PM VA-TOBACCO QUIT 5 TO < [address] [facility] Apr 16, 2017 10:17 AM FORMER TOBACCO USER 7Y OR GRE[address] [facility] Jun 09, 2016 10:03 AM FORMER TOBACCO USER 7Y OR [address] [facility] May 06, 2015 08:19 AM FORMER TOBACCO USER 7Y OR [address] [facility] Advance Directives: All historical and current Section Date Range: From patient's date of to the date document was created. This section includes ALL of a patient's completed or amended [place] Advance and Rescinded Directives. The entries below indicate that a directive exists for the patient, but an actual copy is not included with this document. The data comes from all [place] facilities. Date Advance Directives Provider Source July 24, 2021 ADVANCE DIRECTIVE [place] [facility] July 24, 2021 ADVANCE DIRECTIVE DISCUSSION [place] [facility] Encounter Notes: All associated encounter notes This section contains the clinical notes associated to the Encounter. Date/Time Encounter Note(s) Provider Source July 13, 2021 10:22 AM HEMATOLOGY AND ONCOLOGY NURSING OUTPAT IENT NOTE: JAZMINE SANCHEZ [facility] LOCAL TITLE: HEME/ONC BLOOD DRAW CLINIC NURSING NOTE STANDARD TITLE: HEMATOLOGY AND ONCOLOGY NURSING OUTPATIENT NOTE DATE OF NOTE: JULY 13, 2021@10:22 ENTRY DATE: JULY 13, 2021@10:22:40 AUTHOR: JAZMINE SANCHEZ EXP COSIGNER: URGENCY: STATUS: COMPLETED Date of Service:July Diagnosis: Procedure: port/PICC flush Venous Access Device Care: Type: Portacath 3/4 20g [place]ott Needle Blood return: Yes Site: normal Labs drawn: No dressing changed Flushes: normal saline, heparin 500 units Status: deaccessed Discharge to: Home Patient was notified they need their por t flushed in 30-60 days and to make an appt with the [facility] or at their own provider. /shalonda/ JAZMINE SANCHEZ LPN, LPN Signed: 07/13/2021 10:23
--- OUTSIDE RECORDS SUMMARY | 2021-11-18 09:13 | XMS_ITS | Encounter Summary ---
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 continued to function in activities of daily life, and mainta in an positive, optimistic outlook. Though, he feels most stressed and irritable while watching the news. is appropriate [facility] to improve his sleep, particularly the PAP skills group to begin. FUNCTIONAL ASSESSMENT: Presenting problem: What is most distressing/ di sturbing about current sleep? Trouble falling asleep. Mind won't shut off. I f not asleep in the first 15 minutes, then it will take s everal hours. Goes to bed 10-10:30pm, will watch PBS for 30-60 min. Then tries to go to sleep. On ave rage, sleeps from 2:00am to 8:00am. Intensity: The reports no insomnia and m ild anxiety, according to the MICHAEL and PORFIRIO-7, respectively. The Anson is not overly sleepy according to the Jay. Stressors: Health stressors, chemo, bad drug gentry ction, tuirvk-ez-nxt and rzafbrs-io-jxn , best friend Insomnia symptoms or diagnosis: Type of sleep problem: [X] sleep onset latency [ ] mid-sleep awakening [ ] early awakening [ ] short sleep duration (<6 hours/night) Duration: Since retired, 7 years now Days/week affected: 4-5 Estimated total amount of sleep: 5-6 hours Daytime effects: Sometimes need a nap. Denies other problems. Other Notes: Napping - 1 hour nap, 1-2 days a week Stated Sleep Quality - Pretty good when sleeping Shift work: Sometimes would work until 2am, stay ed late at work. Sleep medication(s)/aids: Denies Obstructive sleep apnea (SELIN) symptoms or diagno sis: diagnosed with severe sleep apnea with central component Currently treated? Last time he used his PAP was 1.5 months ago. Leaks and makes noise and wakes him and his up. Parasomnia symptoms: Nightmares: 4 years ago lannydave rakesh byrnes, once in a while will wake up thinking of that, every couple months Other unusual behaviors during sleep: Denies Circadian rhythm disorder: [X] Anson often fall aslee p later OR earlier than most people do (more than 2 hours)? Comment: typical falling asleep from 1-2 am [ ] Anson often has difficulty getting up in t александр to fulfill daily responsibilities OR often wake up earlier than m ost people do? Comment: Denies Treatment History of Presenting Problem: Sleep a pnea diagnosis and treatment IMPACT OF PRESENTING PROBLEM ON FUNCTIONING/YOBANI Y LIFE Sleep: See above Physical: Multiple procedure s and cancers over the last several years. This has created stress, which he sometimes lies awake th inking about. 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 Relationships/Social Functio kevin: His tossing and turning will keep his up so she has to go to a different bed to sleep. Recreation: Plays cribbage Alcohol: Quit drinking in 1983. Tobacco: The patient is a former tobacco user. The patient quit fifteen or more years ago. Drugs: Denies use RISK ASSESSMENT: Suicidality: [ ] suicidal ideation [ ] suicidal intent [ ] suicidal plan [ ] suicidal preparations [ ] recent suicidal behavior (most risk in subse quent 2 years) [ ] history of self-harm Homicidality: [ ] homicidal ideation [ ] homicidal intent [ ] homicidal plan [ ] homicidal preparations [ ] recent homicidal behavior Risk factors: [X] demographics (age, race, and/or gender) [ ] mental health symptoms [X] worsening, new, or very bothersome physical health problem [ ] substance abuse [ ] frequent/severe nightmares [ ] frequent/severe insomnia [ ] impulsivity or risky behaviors [ ] withdrawing/isolating [ ] recent psychiatric admission [ ] hopelessness [ ] minimal support (perceived or actual) [ ] problems with relationship [ ] problems with finances [ ] problems with housing [ ] problems with employment [ ] legal problems [X] bereavement [ ] disability [ ] recent change in functioning [ ] recent deployment [ ] from [employer] or other post-911 c onflict [ ] access to firearms [ ] mental status abnormalities [ ] cognitive concerns or dementia Protective Factors: [X] Has at least one positive social support [ ] Spirituality [ ] Cultural and christian belief that supports self-preservation [X] Sense of responsibility to family [ ] Children in the home or [X] Life satisfaction [X] Positive coping skills [X] Positive problem-solving skills [X] Positive relationship with PCP [X] Future focused/goal oriented [X] Receiving effective clinical care for mental , physical and substance use disorders [X] Has easy access to clinical interventions an d support for help seeking [ ] Other, specify: Clinician Judgement of Risk: Based on risk and protective factors, the patien t's ACUTE risk for committing suicidal/homicidal acts at this time is consider ed to be: [X] Low [ ] Medium [ ] High Based on risk and protective factors, the patient's CHRONIC risk for committing suicidal/homicidal acts at this time is consider ed to be: [X] Low [ ] Medium [ ] High ADDITIONAL ASSESSMENT: Insomnia severity index: 6 (no insomnia) PORFIRIO-7: 6 (mild anxiety) Jay Sleepiness Scale 0 = would never doze 1 = slight chance of dozing 2 = moderate chance of dozing 3 = high chance of dozing Situation Chance of Dozing (0-3) 1. Sitting and readin. Watching TV: 0 3. Sitting, inactive in a public place (e.g. a [place] heatre or a meeting): 0 4. As a passenger in a car for an hour without a break: 0 5. Lying down to rest in the afternoon when circ umstances permit: 3 6. Sitting and talking to someone: 0 7. Sitting quietly after a lunch without alcohol : 0 8. In a car, while stopped for a few minutes in the traffic: 0 Total Score = 3 A score of 10 or greater rizzo ses concern: you may need to get more sleep, improve your sleep practices, or see k medical attention to determine why you are sleepy. Prior Assessments: No data available CLINICAL REMINDERS (if completed today): None /es/ Ana Maria Schaefer, PhD, Staff Psychologist [facility] Signed: 06/10/2021 15:50 Receipt Acknowledged By: * AWAITING SIGNATURE * JULIANE JIM 06/10/2021 15:57 /es/ LIAM MEJIA MD STAFF PHYSICIAN 06/10/2021 ADDENDUM STATUS: COMPLETED Dr. Masterson - with difficulty tolerating P AP is interested in the PAP skills group. Appreciate your consideration of t his Anson for the group. /shalonda/ Ana Maria Schaefer, PhD, Staff Psychologist [facility] Signed: 06/10/2021 15:50 Receipt Acknowledged By: * AWAITING SIGNATURE * LEONA MASTERSON
--- OUTSIDE RECORDS SUMMARY | 2021-11-18 09:13 | XMS_ITS | Encounter Summary ---
:1945 Author Organization [facility] rs Address [address] [place] [id number] Support Name Relationship Address Phone SILKE LOCKWOOD Unavailable [id number] [address] SILKE LOCKWOOD Unavailable [id number] [address] Insurance Providers: All historical and current Section [...] Victor [place]ARE [place] Jun 10, [id number] Pabon ATIENT [facility] (WNR) ADVANTAGE (WNR) 2019 [id number] [phone] ,ANDER Bennett [place] Jun 10, [id number] ASHLEYTROM P ATIENT [facility] (WNR) ADVANTAGE (WNR) 2018 3 [id number] [phone] ,ANDER Bennett Selected Encounter This section includes the information on record at [place] for the Encounter. Date/Time Encounter Type Encounter Reason Provider Source Description Jun 29, 2021 OFFICE O/P EST SLEEP MEDICINE ICD-10-CM G47.33 Rody MARI 10:30 AM MOD 30-39 MIN Obstructive sleep apnea (adult) (pediatric) with Provider Comments: Obstructive sleep apnea of adult ([facility] [id number]) IHE Encounter Template Text not used by [facility] Assessments - Encounter Diagnoses This section includes the primary and secondary diagnoses documented for the Encounter. Date/Time Primary/Secondary Diagnosis Name Provider Source Diagnosis Jun 30, 2021 PRIMARY Obstructive sleep HUBER MARI [facility] 07:39 PM apnea (adult) [facility] (pediatric) Plan of Treatment: Future Appointments (+ 6 months) and Future Tests (+/- 45 days) The Plan of Treatment section includes future care activities for the patient from all [place] [facility] This section includes future appointments and future orders which are active, pending orscheduled.Future Appointments This section includes appointments that were scheduled to occur 6 months from the date of the Encounter, up to a maximum of 20 appointments. The data comes from all [place] treatment [facility]. Appointment Date/Time Appointment Type Appointment Facili ty Name July 13, 2021 10:15 AM AMBULATORY - [facility]ICINE [facility] July 18, 2021 07:00 AM AMBULATORY - NONE [facility] Aug 22, 2021 10:28 AM AMBULATORY - MEDICINE [facility] Sep 15, 2021 09:00 AM AMBULATORY - MEDICINE [facility] Sep 15, 2021 09:30 AM AMBULATORY - MEDICINE [facility] Sep 15, 2021 10:00 AM AMBULATORY - NONE [facility] Oct 03, 2021 01:39 PM AMBULATORY - NONE [facility] Oct 03, 2021 01:42 PM AMBULATORY - NONE [facility] Oct 04, 2021 07:51 PM AMBULATORY - NONE [facility] Oct 14, 2021 10:30 AM AMBULATORY - MEDICINE [facility] Oct 25, 2021 12:27 PM AMBULATORY - NONE [facility] Oct 27, 2021 08:30 AM AMBULATORY - MEDICINE [facility] Oct 27, 2021 09:00 AM AMBULATORY - NONE [facility] Nov 02, 2021 09:00 AM AMBULATORY - MEDICINE [facility] Nov 15, 2021 10:00 AM AMBULATORY - NONE [facility] Nov 17, 2021 10:00 AM AMBULATORY - SURGERY [facility] Dec 15, 2021 04:00 PM AMBULATORY - MEDICINE [facility] Active, Pending, and Scheduled Orders This section includes a listing of several types of active, pending, and scheduled orders, including clinic medications orders, diagnostic test orders, procedure orders and consult orders; where the start date of the order is 45 days before the date of the Encounter or 45 days after the date of the Encounter. The data comes from all [facility]. Test Date/Time Test Type Test Details Facility Name May 23, 2021 12:00 AM Laboratory - CBC & DIFF BLOOD ONCO SP [place] [facility] Chemistry Order ONCE May 23, 2021 12:00 AM Laboratory - COMPREHENSIVE METABOLIC [place] [facility] Chemistry Order PANEL+MG PLASMA ONCO SP Jun 01, 2021 12:00 AM Laboratory - PSA SERUM [place] [facility] Chemistry Order Jun 01, 2021 12:00 AM Laboratory - CBC BLOOD SP ONCE [place] [facility] Chemistry Order Jun 01, 2021 12:00 AM Laboratory - ELECTROLYTES/ANION GAP [facility] Chemistry Order PLASMA SP Jun 01, 2021 12:00 AM Laboratory - GLUCOSE PLASMA SP [place] [facility] Chemistry Order Jun 01, 2021 12:00 AM Laboratory - HEMOGLOBIN A1C BLOOD SP [place] [facility] Chemistry Order Jun 01, 2021 12:00 AM Laboratory - AST/SGOT PLASMA [place] [facility] Chemistry Order Jun 01, 2021 12:00 AM Laboratory - CREATININE(INCLUDES [place] [facility] Chemistry Order EGFR) PLASMA SP Jun 01, 2021 12:00 AM Laboratory - ALT/SGPT PLASMA [place] [facility] Chemistry Order Jun 01, 2021 12:00 AM Laboratory - LIPID PANEL,NON-FASTING [place] [facility] Chemistry Order PLASMA SP Jun 01, 2021 12:00 AM Laboratory - TSH W/REFLEX TO FREE T4 [place] [facility] Chemistry Order PLASMA SP Social History: Smoking Status (Most current) and Tobacco Use (All prior to encounter date) This section includes the most current, and the historical, smoking and tobacco-related health factors from the [place] facility where the Encounter took place.Current Smoking Status This section includes the most current smoking, or tobacco-related health factor, from the [place] facility where the Encounter took place. Date/Time Current Smoking Status Comment Facility May 26, 2021 03:30 PM VA-TOBACCO FORMER USER MIN [facility] Tobacco Use History This section includes a history of the smoking, or tobacco- related health factors, that were collected on or before the date of the Encounter. The data comes from the [place] facility where the Encounter took place. Date/Time Smoking Status/Tobacco Use Comment [facility] katheryn May 26, 2021 03:30 PM VA-TOBACCO QUIT 15 YRS OR MORE [facility] Jul 05, 2020 06:42 PM VA-TOBACCO FORMER USER MIN [facility] Jan 09, 2018 02:01 PM VA-TOBACCO FORMER USER MIN [facility] Jan 09, 2018 02:01 PM VA-TOBACCO QUIT 5 TO < 15 YRS [facility] Apr 16, 2017 10:17 AM FORMER TOBACCO USER 7Y OR GREATER [facility] Jun 09, 2016 10:03 AM FORMER TOBACCO USER 7Y OR GREATER [facility] May 06, 2015 08:19 AM FORMER TOBACCO USER 7Y OR GREATER [facility] Advance Directives: All historical and current Section Date Range: From patient's date of to the date document was created. This section includes ALL of a patient's completed or amended [place] Advance and Rescinded Directives. The entries below indicate that a directive exists for the patient, but an actual copy is not included with this document. The data comes from all [place] facilities. Date Advance Directives Provider Source July 24, 2021 ADVANCE DIRECTIVE PAPA LEWIS [facility] July 24, 2021 ADVANCE DIRECTIVE DISCUSSION PAPA LEWIS [facility] Radiology Reports: +/- 30 days of [...] the Encounter. The data comes from all [place] treatment facilities. Date/Time Radiology Report Provider Source Jun 10, 2021 09:50 AM US LOWER EXTREMITY ARTERY (BILATERAL) (P): JOHN SALEEM [facility] ANDER LOCKWOOD [id number] [id number] [id number] [phone] M Exm Date: JUN 10, 2021@09:50 Req Phys: LIAM MEJIA Loc: [facility] L 4E (Req'g Loc) Img Loc: Ultrasound Imaging Service: Unknown (Case [id number] COMPLETE) US LOWER EXTREMITY ARTERIES BILAT(US Detailed) CPT:67007 Reason for Study: as below Clinical History: IS NOT under investigation for COVID-19 or is COVID-19 negative leg cramps at night and with walking, assess fo r PAD Responsible provider name and phone number to n otify for critical findings if other than user placing the order a nd pager listed below: User placing orders pager: [phone] rona son LAST CREATININE 1.2 (05/20/21) Report Status: Verified Date Reported: JUN 10, 2021 Date Verified: JUN 10, 2021 Plunger Scoop Operator E-Sig:/ES/JOHN SALEEM MD Report: Duplex Ultrasound of the Bilateral Lower Extrem ity Arteries History: Leg cramps at night and with walking, assess for PAD. Technique: Arterial duplex examination performe d using B-mode, color flow and spectral Doppler assessment. Comparison: CT CAP 05/16/2021 Findings: Peak systolic velocities were measured as follo ws: Right lower extremity: FISHERIES TECHNICIAN prox: 23 cm/sec FISHERIES TECHNICIAN mid: 143 cm/sec FISHERIES TECHNICIAN dis terence: 75 cm/sec PFA: 94 cm/sec SFA prox: 111 cm/sec SFA mid: 74 cm/sec SFA distal: 70 cm/sec Popliteal prox: 60 cm/sec Pop liteal mid: 41 cm/sec Popliteal distal: 46 cm/sec ASHU prox calf: 25 cm/sec Common trunk: 32 cm/se c BIOSECURITY OFFICER ankle: 26 cm/sec ASHU ankle: 31 cm/sec Waveforms are monophasic throughout. Collateral vessels visualized at the mid common femoral artery. Left lower extremity: FISHERIES TECHNICIAN prox: 139 cm/sec FISHERIES TECHNICIAN mid: 129 cm/sec FISHERIES TECHNICIAN di stal: 126 cm/sec PFA: 146 cm/sec SFA prox: 156 cm/sec SFA mid: 1 19 cm/sec SFA distal: 75 cm/sec Popliteal prox: 54 cm/sec Pop liteal mid: 49 cm/sec Popliteal distal: 61 cm/sec ASHU prox calf: 33 cm/sec Common trunk: 39 cm/se c BIOSECURITY OFFICER ankle: 51 cm/sec ASHU ankle: 33 cm/sec [...] HERE. Lower Extremity Arterial Duplex Interpretation Guidelines (sun'aq arteries, bypass grafts, iliac, femoral, poplit eal [...] of the occlusion. Reconstitution is recognized by taoist of color in the ar michael with [...] Primary Interpreting Staff: JOHN SALEEM MD, RADIOLOGIST (Plunger Scoop Operator) Primary Interpreting Resident: MARIAH PUTNAM DO, LABELING MACHINE OPERATOR /hsh Jun 10, 2021 09:24 AM SEGMENTALS/SYED: JOHN SALEEM [facility] ANDER LOCKWOOD [id number], [phone] M Exm Date: JUN 10, 2021@09:24 Req Phys: LIAM EMJIA Pat Loc: [facility] PACT [facility] L 4E (Req'g Loc) Img Loc: VASCULAR LAB PROCEDURES Service: Unknown (Case [id number] COMPLETE) SEGMENTALS/SYED (VAS Detaile d) CPT:25468 Reason for Study: as below Clinical History: Please note that this study requires a 30min apt. time. IS NOT under investigation for COVID-19 or is COVID-19 negative leg cramps at night and with walking, assess fo r PAD, thanks Responsible provider name and phone number to n otify for critical findings if other than user placing the order a nd pager listed below: User placing orders pager: [phone] rona mejia LAST CREATININE 1.2 (05/20/21) Report Status: Verified Date Reported: JUN 10, 2021 Date Verified: JUN 10, 2021 Plunger Scoop Operator E-Sig:/ES/JOHN SALEEM MD Report: Bilateral Lower Extremity [...] toe PPG: Normal. 2. Left lower extremity: SYDE: 0.70. Mild to moderate PAD. TBI: 0.52. Diminished. PVRs: Suggestive of femoral arterial disease. First toe PPG: Normal. I, JOHN SALEEM, have reviewed the images and report. Primary Interpreting Staff: JOHN SALEEM MD, RADIOLOGIST (Plunger Scoop Operator) Primary Interpreting Resident: MARIAH PUTNAM DO, LABELING MACHINE OPERATOR /[facility] Encounter Notes: All associated encounter notes This section contains the clinical notes associated to the Encounter. Date/Time Encounter Note(s) Provider Source Jun 30, 2021 07:25 PM SLEEP MEDICINE NOTE: HUBER MARI [facility] LOCAL TITLE: SLEEP MEDICINE NOTE STANDARD TITLE: SLEEP MEDICINE NOTE DATE OF NOTE: JUN 30, 2021@19:25 ENTRY DATE: JUN 30, 2021@19:25:24 AUTHOR: HUBER MARI EXP COSIGNER: URGENCY: STATUS: COMPLETED SLEEP MEDICINE NOTE Has ADDENDA Patient seen F2F in clinic for: Check machine pressures and mask fit. Device checks out at +5-15 cmH2O with a manometer. Patient does not like his mask so issued an AirFit F20 Medium Full Face Mask in the clinic. /shalonda/ HBUER MARI RCP RESPIRATORY CARE PRACTITIONER Signed: 06/30/2021 19:39 08/12/2021 ADDENDUM STATUS: COMPLETED Called to discuss interest in PAP Skills group. He said his new mask is much better! He is sleeping 8 hours a night with PAP reportedly. He denies further concerns and did not report SI/ HI or sound to b e in distress. /shalonda/ LEONA STACY Psychologist Signed: 08/12/2021 16:38
--- OUTSIDE RECORDS SUMMARY | 2021-11-18 09:13 | XMS_ITS | Encounter Summary ---
:1945 Author Organization [facility] Address [address] [place] [id number] Support Name Relationship Address Phone SILKE LOCKWOOD Unavailable [id number] [address] SILKE LOCKWOOD Unavailable [id number] [address] Insurance Providers: All historical and current Section [...] Victor [place] Jun 10, [id number] [facility] (WNR) ADVANTAGE (WNR) 2019 8 [id number] [phone] ,ANDER Bennett [place] Jun 10, [id number] [facility] ([facility] (WNR) 2018 3 [id number] [phone] ,ANDER Bennett Selected Encounter This section includes the information on record at [place] for the Encounter. Date/Time Encounter Type Encounter Reason Provider Source Description Jun 23, 2021 Outpatient TELEPHONE/SURGERY ICD-10-CM I73.9 ST ABNER HADLEY 09:00 AM Encounter Peripheral EN M vascular disease, unspecified with Provider Comments: Peripheral Vascular Disease, Unspecified IHE Encounter Template Text not used by [place] Assessments - Encounter Diagnoses This section includes the primary and secondary diagnoses documented for the Encounter. Date/Time Primary/Secondary Diagnosis Name Provider Source Diagnosis Jun 23, 2021 PRIMARY Peripheral NESSA HADLEY Amanda 09:00 AM vascular disease, N M HCS unspecified Plan of Treatment: Future Appointments (+ 6 months) and Future Tests (+/- 45 days) The Plan of Treatment section includes future care activities for the patient [facility] This section includes future appointments and future orders which are active, pending orscheduled.Future Appointments This section includes appointments that were scheduled to occur 6 months from the date of the Encounter, up to a maximum of 20 appointments. The data comes from all [place] treatment facilities. Appointment Date/Time Appointment Type Appointment Facili ty Name Jun 29, 2021 10:30 AM AMBULATORY - MEDICINE [facility] July 13, 2021 10:15 AM AMBULATORY - MEDICINE [facility] July 18, 2021 07:00 AM AMBULATORY - NONE [facility] Aug 22, 2021 10:28 AM AMBULATORY - MEDICINE [facility] Sep 15, 2021 09:00 AM AMBULATORY - MEDICINE [facility] Sep 15, 2021 09:30 AM AMBULATORY - MEDICINE [facility] Sep 15, 2021 10:00 AM AMBULATORY - NONE [facility] Oct 03, 2021 01:39 PM AMBULATORY - NONE [facility] Oct 03, 2021 01:42 PM AMBULATORY - NONE [facility] Oct 04, 2021 07:51 PM AMBULATORY - NONE [facility] Oct 14, 2021 10:30 AM AMBULATORY - MEDICINE [facility] Oct 25, 2021 12:27 PM AMBULATORY - NONE [facility] Oct 27, 2021 08:30 AM AMBULATORY - MEDICINE [facility] Oct 27, 2021 09:00 AM AMBULATORY - NONE [facility] Nov 02, 2021 09:00 AM AMBULATORY - MEDICINE [facility] Nov 15, 2021 10:00 AM AMBULATORY - NONE [facility] Nov 17, 2021 10:00 AM AMBULATORY - SURGERY [facility] Dec 15, 2021 04:00 PM AMBULATORY - MEDICINE [facility] Active, Pending, and Scheduled Orders This section includes a listing of several types of active, pending, and scheduled orders, including clinic medications orders, diagnostic test orders, procedure orders and consult orders; where the start date of the order is 45 days before the date of the Encounter or 45 days after the date of the Encounter. The data comes from all [place] treatment [facility]. Test Date/Time Test Type Test Details Facility Name May 23, 2021 12:00 AM Laboratory - CBC & DIFF BLOOD ONCO SP [facility] Chemistry Order ONCE May 23, 2021 12:00 AM Laboratory - COMPREHENSIVE METABOLIC [facility] Chemistry Order PANEL+MG PLASMA ONCO SP Jun 01, 2021 12:00 AM Laboratory - PSA SERUM SP [facility] Chemistry Order Jun 01, 2021 12:00 AM Laboratory - CBC BLOOD SP ONCE [facility] Chemistry Order Jun 01, 2021 12:00 AM Laboratory - CREATININE(INCLUDES [facility] Chemistry Order EGFR) PLASMA SP Jun 01, 2021 12:00 AM Laboratory - ELECTROLYTES/ANION GAP [facility] Chemistry Order PLASMA SP Jun 01, 2021 12:00 AM Laboratory - GLUCOSE PLASMA SP [facility] Chemistry Order Jun 01, 2021 12:00 AM Laboratory - HEMOGLOBIN A1C BLOOD SP [facility] Chemistry Order Jun 01, 2021 12:00 AM Laboratory - AST/SGOT [facility]AS[facility] Chemistry Order Jun 01, 2021 12:00 AM Laboratory - ALT/SGPT PLASMA SP [facility] Chemistry Order Jun 01, 2021 12:00 AM Laboratory - TSH W/REFLEX TO FREE T4 [facility] Chemistry Order PLASMA SP Jun 01, 2021 12:00 AM Laboratory - LIPID PANEL,NON-FASTING [facility] Chemistry Order PLASMA SP Social History: Smoking Status (Most current) and Tobacco Use (All prior to encounter date) This section includes the most current, and the historical, smoking and tobacco-related health factors from the [place] facility where the Encounter took place.Current Smoking Status This section includes the most current smoking, or tobacco-related health factor, from the [place] facility where the Encounter took place. Date/Time Current Smoking Status Comment Facility May 26, 2021 03:30 PM VA-TOBACCO FORMER USER [facility] Tobacco Use History This section includes a history of the smoking, or tobacco- related health factors, that were collected on or before the date of the Encounter. The data comes from the [place] facility where the Encounter took place. Date/Time Smoking Status/Tobacco Use Comment Romulo campa May 26, 2021 03:30 PM VA-TOBACCO QUIT 15 YRS OR MORE [facility] Jul 05, 2020 06:42 PM VA-TOBACCO FORMER USER [facility] Jan 09, 2018 02:01 PM VA-TOBACCO FORMER USER [facility] Jan 09, 2018 02:01 PM VA-TOBACCO QUIT 5 TO < 15 YRS [facility] Apr 16, 2017 10:17 AM FORMER TOBACCO USER 7Y OR GREATER [facility] Jun 09, 2016 10:03 AM FORMER TOBACCO USER 7Y OR GREATER [facility] May 06, 2015 08:19 AM FORMER TOBACCO USER 7Y OR GREATER [facility] Advance Directives: All historical and current Section Date Range: From patient's date of to the date document was created. This section includes ALL of a patient's completed or amended [place] Advance and Rescinded Directives. The entries below indicate that a directive exists for the patient, but an actual copy is not included with this document. The data comes from all [place] facilities. Date Advance Directives Provider Source July 24, 2021 ADVANCE DIRECTIVE PAPA LEWIS [facility] July 24, 2021 ADVANCE DIRECTIVE DISCUSSION PAPA LEWIS [facility] Radiology Reports: +/- 30 days [...] the Encounter. The data comes from all [place] treatment facilities. Date/Time Radiology Report Provider Source Jun 10, 2021 09:50 AM US LOWER EXTREMITY ARTERY (BILATERAL) (P): JOHN SALEEM [facility] ANDER LOCKWOOD [id number] [phone] M Exm Date: JUN 10, 2021@09:50 Req Phys: LIAM MEJIA Pat Loc: [facility] PACT PEAR L 4E (Req'g Loc) Img Loc: Ultrasound Imaging Service: Unknown (Case [id number] COMPLETE) US LOWER EXTREMITY ARTERIES BILAT(US Detailed) CPT:04155 Reason for Study: as below Clinical History: IS NOT under investigation for COVID-19 or is COVID-19 negative leg cramps at night and with walking, assess fo r PAD Responsible provider name and phone number to n otify for critical findings if other than user placing the order a nd pager listed below: User placing orders pager: [phone] rona son LAST CREATININE 1.2 (05/20/21) Report Status: Verified Date Reported: JUN 10, 2021 Date Verified: JUN 10, 2021 Gyroscopic Instrument Tester E-Sig:/ES/JOHN SALEEM MD Report: Duplex Ultrasound of the Bilateral Lower Extrem ity Arteries History: Leg cramps at night and with walking, assess for PAD. Technique: Arterial duplex examination performe d using B-mode, color flow and spectral Doppler assessment. Comparison: CT CAP 05/16/2021 Findings: Peak systolic velocities were measured as follo ws: Right lower extremity: ASSISTANT BOYS TRACK COACH prox: 23 cm/sec ASSISTANT BOYS TRACK COACH mid: 143 cm/sec ASSISTANT BOYS TRACK COACH dis terence: 75 cm/sec PFA: 94 cm/sec SFA prox: 111 cm/sec SFA mid: 74 cm/sec SFA distal: 70 cm/sec Popliteal prox: 60 cm/sec Pop liteal mid: 41 cm/sec Popliteal distal: 46 cm/sec ASHU prox calf: 25 cm/sec Common trunk: 32 cm/se c SUPERVISOR MAINTENANCE ankle: 26 cm/sec ASHU ankle: 31 cm/sec Waveforms are monophasic throughout. Collateral vessels visualized at the mid common femoral artery. Left lower extremity: ASSISTANT BOYS TRACK COACH prox: 139 cm/sec ASSISTANT BOYS TRACK COACH mid: 129 cm/sec ASSISTANT BOYS TRACK COACH di stal: 126 cm/sec PFA: 146 cm/sec SFA prox: 156 cm/sec SFA mid: 1 19 cm/sec SFA distal: 75 cm/sec Popliteal prox: 54 cm/sec Pop liteal mid: 49 cm/sec Popliteal distal: 61 cm/sec ASHU prox calf: 33 cm/sec Common trunk: 39 cm/se c SUPERVISOR MAINTENANCE ankle: 51 cm/sec ASHU ankle: 33 cm/sec [...] HERE. Lower Extremity Arterial Duplex Interpretation Guidelines ([place] arteries, bypass grafts, iliac, femoral, poplit eal [...] of the occlusion. Reconstitution is recognized by pentecostal of color in the ar michael with [...] Primary Interpreting Staff: JOHN SALEEM MD, RADIOLOGIST (Gyroscopic Instrument Tester) Primary Interpreting Resident: MARIAH PUTNAM DO, CLOTH SHEARING SUPERVISOR /hsh Jun 10, 2021 09:24 AM SEGMENTALS/SYED: JOHN SALEEM [facility] ANDER LOCKWOOD [id number], [phone] M Exm Date: JUN 10, 2021@09:24 Req Phys: LIAM MEJIA Loc: [facility] PACT PEAR L 4E (Req'g Loc) Img Loc: VASCULAR LAB PROCEDURES Service: Unknown (Case [id number] COMPLETE) SEGMENTALS/SYED (VAS Detaile d) CPT:97575 Reason for Study: as below Clinical History: Please note that this study requires a 30min apt. time. [place] IS NOT under investigation for COVID-19 or is COVID-19 negative leg cramps at night and with walking, assess fo r PAD, thanks Responsible provider name and phone number to n otify for critical findings if other than user placing the order a nd pager listed below: User placing orders pager: [phone] rona mejia LAST CREATININE 1.2 (05/20/21) Report Status: Verified Date Reported: JUN 10, 2021 Date Verified: JUN 10, 2021 Gyroscopic Instrument Tester E-Sig:/ES/JOHN SALEEM MD Report: Bilateral Lower Extremity [...] toe PPG: Normal. 2. Left lower extremity: SYED: 0.70. Mild to moderate PAD. TBI: 0.52. Diminished. PVRs: Suggestive of femoral arterial disease. First toe PPG: Normal. I, JOHN SALEEM, have reviewed the images and report. Primary Interpreting Staff: JOHN SALEEM MD, RADIOLOGIST (Gyroscopic Instrument Tester) Primary Interpreting Resident: MARIAH PUTNAM DO, CLOTH SHEARING SUPERVISOR /[facility] Encounter Notes: All associated encounter notes This section contains the clinical notes associated to the Encounter. Date/Time Encounter Note(s) Provider Source Jun 23, 2021 08:45 AM VASCULAR SURGERY CONSULT: ARJUN HADLEY [facility] LOCAL TITLE: VASCULAR CONSULT STANDARD TITLE: VASCULAR SURGERY CONSULT DATE OF NOTE: JUN 23, 2021@08:45 ENTRY DATE: JUN 23, 2021@08:45:09 AUTHOR: ARJUN HADLEY EXP COSIGNER: URGENCY: STATUS: COMPLETED Vascular Surgery Admission History & Physical / Consult Note: Reason for visit: Patient with classic claudicat ion b/l R>L. Happens with any acelaeration in walking at about 1/2 block, must stop for 5 monutes, then can resume activity. No issues with rest pain, NHW, or gangrene. HPI: 75 years old MALE here for: b/l lower extremity claudication Review of System: General: Nl Vascular: as above Neurologic: nl Cardiac: afib Respiratory: nl Gastrointestinal: nl Genitourinary: nl Musculoskeletal: nl Dermatological: nl Hematological: nl Past Medical History/Past Surgical History: Active problems - Computerized Problem List is t he source for the followin. Lymphoma - Low grade follicular lymphoma; by groin LN bx - NHL 2. Erectile dysfunction 3. Hyperlipidemia 4. Insomnia 5. Gastroesophageal reflux disease 6. Cough 7. Osteoarthritis - S/P left total hip in 2017 8. Multiple pulmonary nodules 9. 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 Obstructive sleep apnea of adult 14. Rash Medications: Active and Recently Outpatient Medicatio ns (including Supplies): Active Outpatient Medications Status 1) ALBUTEROL 90MCG (CFC-F) 200D ORAL INHL INHALE 2 PUFFS ACTIVE BY INHALATION FOUR TIMES A DAY NEEDED SHA KE WELL (FOR IMMEDIATE RELIEF). 2) APIXABAN 5MG TAB TAKE ONE TABLET BY MOUTH RAYSA RY 12 ACTIVE HOURS TO PREVENT AND/OR TREAT BLOOD CLOTS 3) ATORVASTATIN CALCIUM 20MG TAB TAKE ONE-HALF T ABLET BY ACTIVE MOUTH AT BEDTIME FOR CHOLESTEROL 4) DILTIAZEM (EQV-TIAZAC) 180MG 24HR CAP TAKE ON E ACTIVE CAPSULE BY MOUTH EVERY DAY 5) FAMOTIDINE 20MG TAB TAKE ONE TABLET BY MOUTH TWICE A ACTIVE DAY FOR GERD*REPLACES RANITIDINE 6) FOLIC ACID 1MG TAB TAKE ONE TABLET BY MOUTH E VERY DAY ACTIVE FOR CHEMO PREMED 7) OLODATEROL/TIOTROP 2.5MCG/ACTUAT 60D INH INHA LE 2 ACTIVE PUFFS BY INHALATION EVERY DAY TO PREVENT TROUBL E BREATHING 8) PERMETHRIN 5% CREAM APPLY THIN LAYER TOPICALL Y ACTIVE DIRECTED PLEASE APPLY TO ENTIRE SKIN FROM NECK DOWN AND LEAVE ON OVERNIGHT. WASH OFF IN THE MORNING . PLEASE REPEAT 1 WEEK LATER Inactive Outpatient Medications Status 1) ATORVASTATIN CALCIUM 20MG TAB TAKE ONE-HALF T ABLET BY DISCONTINUED MOUTH AT BEDTIME FOR CHOLESTEROL 2) CLINDAMYCIN PHOSPHATE 1% LOTION APPLY TO THIG HS AND LOWER ABDOMEN TOPICALLY TWICE A DAY 3) DILTIAZEM (EQV-TIAZAC) 180MG 24HR CAP TAKE ON E DISCONTINUED CAPSULE BY MOUTH EVERY DAY 4) FAMOTIDINE 20MG TAB TAKE ONE TABLET BY MOUTH TWICE A DISCONTINUED DAY FOR GERD*REPLACES RANITIDINE 5) FOLIC ACID 1MG TAB TAKE ONE TABLET BY MOUTH E VERY DAY DISCONTINUED FOR CHEMO PREMED 6) HYDROXYZINE HCL 10MG TAB TAKE ONE TABLET BY M OUTH AT BEDTIME FOR ITCHING 7) METOPROLOL TARTRATE 50MG TAB TAKE ONE TABLET BY MOUTH DISCONTINUED TWICE A DAY 8) METOPROLOL TARTRATE 50MG TAB TAKE ONE-HALF TA BLET BY DISCONTINUED MOUTH TWICE A DAY (EDIT) 9) OLODATEROL/TIOTROP 2.5MCG/ACTUAT 60D INH INHA LE 2 DISCONTINUED PUFFS BY INHALATION EVERY DAY TO PREVENT TROUBL E BREATHING 10) ONDANSETRON HCL 8MG TAB TAKE ONE TABLET BY M OUTH DISCONTINUED EVERY 8 HOURS NEEDED FOR NAUSEA 11) PETROLATUM (WHITE) OINT APPLY LIBERAL AMOUNT TOPICALLY TWICE DAILY FOR LIGHT TREATMENT 12) PROCHLORPERAZINE MALEATE 10MG TAB TAKE ONE T ABLET BY MOUTH EVERY 6 HOURS NEEDED FOR NAUSEA AND VOMITING. DO NOT TAKE MORE THAN 40 MG PER DAY 13) PROCHLORPERAZINE MALEATE 10MG TAB TAKE ONE T ABLET BY DISCONTINUED MOUTH EVERY 6 HOURS NEEDED FOR NAUSEA AND VOMITING. DO NOT TAKE MORE THAN 40 MG PER DAY 14) SULFAMETHOXAZOLE 400/TRIMETH 80MG TAB TAKE 1 TABLET DISCONTINUED BY MOUTH EVERY DAY TO PREVENT INFECTION WHILE O N HIGH DOSE PREDNISONE 15) TERBINAFINE HCL 1% CREAM APPLY THIN LAYER TO PICALLY TWICE A DAY FOR FUNGAL INFECTION 16) TRIAMCINOLONE ACETONIDE 0.025% CREAM APPLY A THIN DISCONTINUED LAYER TOPICALLY SIX TIMES A DAY TO ITCHY SKIN AREASAVOID FACE,GROIN & ARMPITS *FOR EXTERNAL USE ONLY 17) TRIAMCINOLONE ACETONIDE 0.1% OINT APPLY THIN LAYER TOPICALLY TWICE A DAY AVOID FACE,GROIN & ARMP ITS *FOR EXTERNAL USE ONLY FOR DERMATITIS 18) UREA 40% CREAM APPLY THIN LAYER EVERY DAY OR TWICE A DAY FOR THICK SKIN ON SOLES OF FEET 19) ZINC OXIDE 20% OINT APPLY THIN LAYER TOPICAL LY EVERY DAY TO AFFECTED AREA FOR MOISTURE PROTECTION Active Non-VA Medications Status 1) Non-VA CHOLECALCIF 25MCG (D3-1,000UNIT) TAB 5 0MCG ACTIVE MOUTH EVERY DAY 2) Non-VA MAGNESIUM OXIDE TAB 400MG MOUTH EVERY DAY ACTIVE 3) Non-VA MULTIVITAMIN CAP/TAB 1 TABLET MOUTH EV ALEKSANDRA DAY ACTIVE 30 Total Medications No Active Remote Medications for this patient Allergies: FACILITY ALLERGY/ADR -------- No Remote Allergy/ADR Data available for this pa [facility] No Known Allergies Family History: no known PAD Social History: Smoking: stopeed 20 yeas ago Alcoholol: no Illicit Drug Use: no ADL: no Dyspnea with exertion with 1 flight of stairs: N o Physical Exam: Temp: 98.4 F [36.9 C] (05/26/2021 15:21) Pulse:83 (05/26/2021 15:21) BP: 136/76 (05/26/2021 15:29) O2 Sat: 96% (05/26/2021 15:21) BMI: 29.4 General: n/a HEENT: n/a Resp: n/a CV: n/a Abd: n/a Neuro: n/a Ext:n/a Labs: INR: INR 0.9 PLASMA (08/04/20 15:45) WBC: WBC 6.68 (01/19/21) Hemoglobin: HGB 11.6 L (01/19/21) Platelets: PLT 251 (01/19/21) CREATININE 1.2 (05/20/21) Imaging: R SYED - 0.52 L SYED - 0.70 Assement/Plan: 75 years old MALE with claudication. No evidence of CLI Discussed with patient options including continu ing medical management versus evaluation for intervention. After discussing op tions with patient he desires to continue with medical management. He will wor k with his PC for risk factor modification and I would reocmmend follwoing PAD with q6 month ABIs. If sx worsen or ABIs drop to less than 0.3, referral t o Vascualr Surgery would be indicated. Patient understands and agrees to thi s treatment plan. /es/ ARJUN HADLEY MD CHIEF, SURGERY SPECIALTY CARE PSL Signed: 06/23/2021 08:54
--- OUTSIDE RECORDS SUMMARY | 2021-11-18 09:13 | XMS_ITS | Encounter Summary ---
:1945 Author Organization [facility] Address [address] [place] [address] Support Name Relationship Address Phone SILKE LOCKWOOD Unavailable [phone] [place] [phone] SILKE LOCKWOOD Unavailable [phone] [place] [phone] Insurance Providers: All historical and current Section [...] Victor [place] MEDICARE MCR Jun 10, [id number] M[address] P[address] [facility] (WNR) 2020 8 [id number] [phone] ,ANDER Bennett [place]IC[place] Jun 10, [id number] [address] P ATIENT [facility] (WNR) ADVANTAGE (WNR) 2018 3 [id number] [phone] ,ANDER Bennett Selected Encounter This section includes the information on record at [facility] for the Encounter. Date/Time Encounter Type Encounter Description Reason Provider Source July 24, 2021 03:20 Outpatient Encounter PRIMARY CARE/MEDICINE PM [facility] Encounter Template Text not used by [facility] Plan of Treatment: Future Appointments (+ 6 months) and Future Tests (+/- 45 days) The Plan of Treatment section includes future care activities for the patient from all [facility] treatmentfacilities. This section includes future appointments and future orders which are active, pending orscheduled.Future Appointments This section includes appointments that were scheduled to occur 6 months from the date of the Encounter, up to a maximum of 20 appointments. The data comes from all [facility] treatment facilities. Appointment Date/Time Appointment Type Appointment Facili ty Name Aug 22, 2021 10:28 AM AMBULATORY - MEDICINE [facility] Sep 15, 2021 09:00 AM AMBULATORY - MEDICINE [facility] Sep 15, 2021 09:30 AM AMBULATORY - MEDICINE [facility] Sep 15, 2021 10:00 AM AMBULATORY - NONE [facility] Oct 03, 2021 01:39 PM AMBULATORY - NONE [facility] Oct 03, 2021 01:42 PM AMBULATORY - NONE [facility] Oct 04, 2021 07:51 PM AMBULATORY - NONE [facility] Oct 14, 2021 10:30 AM AMBULATORY - MEDICINE [facility] Oct 25, 2021 12:27 PM AMBULATORY - NONE [facility] Oct 27, 2021 08:30 AM AMBULATORY - MEDICINE [facility] Oct 27, 2021 09:00 AM AMBULATORY - NONE [facility] Nov 02, 2021 09:00 AM AMBULATORY - MEDICINE [facility] Nov 15, 2021 10:00 AM AMBULATORY - NONE [facility] Nov 17, 2021 10:00 AM AMBULATORY - SURGERY [facility] Dec 15, 2021 04:00 PM AMBULATORY - MEDICINE [facility] Lab Results: +/- 30 days of [...] Interpretation Reference Range Comment Aug 22, 2021 [facility] COVID-19 AND FLU/RSV DIAG Sp ecimen Type: NASOPHARYNGEAL 11:47 AM PANEL(CEPHEID) Comment: Austin cameron GeneXpert ([id number]) Ordering Provid er: CECILIA REYES Report Released Date/Time: Aug 22, 2021 11:33 AM Reporting Lab: [facility] [place] [facility] [id number] Performing Lab: [facility] [place] [facility] [id number] COVID-19 (CEPHEID) Not Detected Not Dete cted INFLUENZA A (PCR) Not Detected Not Detec kerrie INFLUENZA B (PCR) Not Detected Not Detec kerrie RSV (PCR) Not Detected Not Detected Social History: Smoking Status (Most current) and Tobacco Use (All prior to encounter date) This section includes the most current, and the historical, smoking and tobacco-related health factors from the [facility] facility where the Encounter took place.Current Smoking Status This section includes the most current smoking, or tobacco-related health factor, from the [facility] facility where the Encounter took place. Date/Time Current Smoking Status Comment Facility May 26, 2021 03:30 PM VA-TOBACCO FORMER USER [facility] Tobacco Use History This section includes a history of the smoking, or tobacco- related health factors, that were collected on or before the date of the Encounter. The data comes from the [facility] where the Encounter took place. Date/Time Smoking Status/Tobacco Use Comment [facility] it May 26, 2021 03:30 PM VA-TOBACCO QUIT 15 YRS OR MORE [facility] Jul 05, 2020 06:42 PM VA-TOBACCO FORMER USER [facility] Jan 09, 2018 02:01 PM VA-TOBACCO FORMER USER [facility] Jan 09, 2018 02:01 PM VA-TOBACCO QUIT 5 TO < 15 YRS [facility] Apr 16, 2017 10:17 AM FORMER TOBACCO USER 7Y OR GREATER [facility] Jun 09, 2016 10:03 AM FORMER TOBACCO USER 7Y OR GREATER [facility] May 06, 2015 08:19 AM FORMER TOBACCO USER 7Y OR GREATER [facility] Advance Directives: All historical and current Section Date Range: From patient's date of to the date document was created. This section includes ALL of a patient's completed or amended [facility] Advance and Rescinded Directives. The entries below indicate that a directive exists for the patient, but an actual copy is not included with this document. The data comes from all [facility]. Date Advance Directives Provider Source July 24, 2021 ADVANCE DIRECTIVE PAPA LEWIS [facility] July 24, 2021 ADVANCE DIRECTIVE DISCUSSION PAPA LEWIS [facility] Radiology Reports: +/- 30 days of [...] the Encounter. The data comes from all [facility] treatment facilities. Date/Time Radiology Report Provider Source Aug 22, 2021 12:53 PM CHEST 2 VIEWS PA AND LAT: MARCO A HURTADO [facility] ANDER LOCKWOOD [phone] -[phone] M Exm Date: AUG 22, 2021@12:53 Req Phys: CECILIA REYES Pat Loc: [facility] EMERGENCY DEP T WALK-IN (Re Img Loc: MAIN X-RAY Service: Unknown (Case [id number] COMPLETE) CHEST 2 VIEWS PA AND LAT (RA D Detailed) CPT:28786 Reason for Study: r/o pneumonia Clinical History: [place] IS NOT under investigation for COVID-19 or is COVID-19 negative cough, fever, chills, h/o lobectomy Responsible provider name and phone number to notify for critical finding s if other than user placing the order and pager listed below: User placing orders pager: LAST CREATININE 1.2 (05/20/21) Report Status: Verified Date Reported: AUG 22, 2021 Date Verified: AUG 22, 2021 Storage Wharfage Clerk E-Sig:/ES/MARCO A HURTADO DO Report: EXAMINATION: CHEST [...] Interpreting Staff: MARCO A HURTADO DO, RADIOLOGIST (Storage Wharfage Clerk) /DDS Encounter Notes: All associated encounter notes This section contains the clinical notes associated to the Encounter. Date/Time Encounter Note(s) Provider Source July 24, 2021 03:20 PM ADVANCE DIRECTIVE: PAPA LEWIS [facility] LOCAL TITLE: ADVANCE DIRECTIVE STANDARD TITLE: ADVANCE DIRECTIVE DATE OF NOTE: JULY 24, 2021@15:20 ENTRY DATE: JULY 24, 2021@15:20:36 AUTHOR: PAPA LEWIS EXP COSIGNER: URGENCY: STATUS: COMPLETED This note contains an attached scanned Advanced Directive. Open [employer] Display to view the document. /shalonda/ [employer] TECH Signed: 07/24/2021 15:20 July 24, 2021 03:20 PM ADVANCE DIRECTIVE DISCUSSION: PAPA LEWIS [facility] LOCAL TITLE: ADVANCE DIRECTIVE DISCUSSION STANDARD TITLE: ADVANCE DIRECTIVE DISCUSSION DATE OF NOTE: JULY 24, 2021@15:20 ENTRY DATE: JULY 24, 2021@15:20:53 AUTHOR: PAPA LEWIS EXP COSIGNER: URGENCY: STATUS: COMPLETED Advance Directive (AD) Patient has an Advance Directive on file in [facility]'s medical record, dated: 05/26/2021 Surrogate Decision Maker DPAHC (Durable Power of Raw Material Handler for Health Car e) Patient has appointed a proxy/healthcare agent to make healthcare decisions when s/he cannot o r chooses not to make decisions. Proxy/healthcare agent: Silke Lockwood (spouse) [address], [place] [address]; p [phone] Alternate healthcare agent: Pat Juarezdavonte (sister) [address], [place] [address]; p [phone] /shalonda/ [employer] MAINT TECH Signed: 07/24/2021 15:24
--- OUTSIDE RECORDS SUMMARY | 2021-11-18 09:14 | XMS_ITS | Encounter Summary ---
:1945 Author Organization [facility] rs Address [address] [place] [id number] Support Name Relationship Address Phone SILKE LOCKWOOD Unavailable [id number] [address] SILKE LOCKWOOD Unavailable [id number] [address] Insurance Providers: All historical and current Section [...] Victor [place] M[place] Jun 10, [id number] MANDIE Pabon ATIENT [facility] (WNR) ADVANTAGE (WNR) 2019 8 [id number] [phone] ,ANDER Bennett [place] Jun 10, [id number] ASHLEYTROM P ATIENT [facility] (WNR) ADVANTAGE (WNR) 2018 3 [id number] [phone] ,ANDER Bennett Selected Encounter This section includes the information on record at ID for the Encounter. Date/Time Encounter Type Encounter Reason Provider Source Description May 26, 2021 OFFICE O/P EST PRIMARY ICD-10-CM C82.90 LIAM MEJIA 03:30 PM MOD 30-39 MIN CARE/MEDICINE Follicular E lymphoma, unspecified, unspecified site with Provider Comments: Lymphoma ([facility] [id number]) IHE Encounter Template Text not used by ID Assessments - Encounter Diagnoses This section includes the primary and secondary diagnoses documented for the Encounter. Date/Time Primary/Secondary Diagnosis Name Provider Source Diagnosis May 29, 2021 PRIMARY Follicular JACKIELIAM OLIVEROS [place] 05:47 PM lymphoma, E [facility] unspecified, unspecified site May 29, 2021 SECONDARY Hyperlipidemia, JACKIELIAM OLIVEROS VA 05:47 PM unspecified E [facility] May 29, 2021 SECONDARY Insomnia, LIAM MEJIA ZOE [place] 05:47 PM unspecified E [facility] May 29, 2021 SECONDARY Malignant neoplasm LIAM MEJIA VA 05:47 PM of lower lobe, E [facility] right bronchus or lung May 29, 2021 SECONDARY Obstructive sleep LIAM MEJIA VA 05:47 PM apnea (adult) E H[facility] (pediatric) May 29, 2021 SECONDARY Rash and other JACKIELIAM OLIVEROS VA 05:47 PM nonspecific skin E [facility] eruption May 29, 2021 SECONDARY Unspecified atrial JACKIELIAM OLIVEROS VA 05:47 PM fibrillation E [facility] Plan of Treatment: Future Appointments (+ 6 months) and Future Tests (+/- 45 days) The Plan of Treatment section includes future care activities for the patient [facility] This section includes future appointments and future orders which are active, pending orscheduled.Future Appointments This section includes appointments that were scheduled to occur 6 months from the date of the Encounter, up to a maximum of 20 appointments. The data comes from all ID treatment facilities. Appointment Date/Time Appointment Type Appointment Facili ty Name Jun 10, 2021 09:30 AM AMBULATORY - NONE [facility] Jun 10, 2021 10:00 AM AMBULATORY - NONE [facility] Jun 10, 2021 01:00 PM AMBULATORY - PSYCHIATRY [facility] Jun 23, 2021 09:00 AM AMBULATORY - SURGERY [facility] Jun 29, 2021 10:30 AM AMBULATORY - MEDICINE [facility] July 13, 2021 10:15 AM AMBULATORY - MEDICINE [facility] July 18, 2021 07:00 AM AMBULATORY - NONE [facility] Aug 22, 2021 10:28 AM AMBULATORY - MEDICINE [facility] Sep 15, 2021 09:00 AM AMBULATORY - MEDICINE [facility] Sep 15, 2021 09:30 AM AMBULATORY - MEDICINE [facility] Sep 15, 2021 10:00 AM AMBULATORY - NONE [facility] Oct 03, 2021 01:39 PM AMBULATORY - NONE [facility] Oct 03, 2021 01:42 PM AMBULATORY - NONE [facility] Oct 04, 2021 07:51 PM AMBULATORY - NONE [facility] Oct 14, 2021 10:30 AM AMBULATORY - MEDICINE [facility] Oct 25, 2021 12:27 PM AMBULATORY - NONE [facility] Oct 27, 2021 08:30 AM AMBULATORY - MEDICINE [facility] Oct 27, 2021 09:00 AM AMBULATORY - NONE [facility] Nov 02, 2021 09:00 AM AMBULATORY - MEDICINE [facility] Nov 15, 2021 10:00 AM AMBULATORY - NONE [facility] Active, Pending, and Scheduled Orders This section includes a listing of several types of active, pending, and scheduled orders, including clinic medications orders, diagnostic test orders, procedure orders and consult orders; where the start date of the order is 45 days before the date of the Encounter or 45 days after the date of the Encounter. The data comes from all ID treatment facilities. Test Date/Time Test Type Test Details Facility Name May 23, 2021 12:00 AM Laboratory - CBC & DIFF BLOOD ONCO SP [facility] Chemistry Order ONCE May 23, 2021 12:00 AM Laboratory - COMPREHENSIVE METABOLIC [facility] Chemistry Order PANEL+MG PLASMA ONCO SP Jun 01, 2021 12:00 AM [facility] - [facility] Chemistry Order Jun 01, 2021 12:00 AM Laboratory - [facility] Chemistry Order EGFR) PLASMA SP Jun 01, 2021 12:00 AM Laboratory - ELECTROLYTES/ANION GAP [facility] Chemistry Order PLASMA SP Jun 01, 2021 12:00 AM [facility] - [facility]SE [facility] Chemistry Order Jun 01, 2021 12:00 AM Laboratory - HEMOGLOBIN A1C BLOOD SP [facility] Chemistry Order Jun 01, 2021 12:00 AM Laboratory - AST/SGOT [facility] Chemistry Order Jun 01, 2021 12:00 AM Laboratory - CBC BLOOD SP [facility] Chemistry Order Jun 01, 2021 12:00 AM Laboratory - TSH W/REFLEX TO FREE T4 [facility] Chemistry Order PLASMA SP Jun 01, 2021 12:00 AM Laboratory - LIPID PANEL,NON-FASTING [facility] Chemistry Order PLASMA SP Jun 01, 2021 12:00 AM Laboratory - ALT/SGPT PLASMA SP [facility] Chemistry Order Lab Results: +/- 30 days of the encounter This section includes the Chemistry and Hematology Lab Results on record with ID for the patient. Radiology Reports and Pathology Reports are provided separately, in subsequent sections.Lab Results This section contains the Chemistry/Hematology Results that were resulted 30 days before or 30 daysafter the date of the Encounter. Date/Time Source Result Type Result - Unit Interpretation Reference Range Comment May 20, 2021 09:35 AM [facility] UREA NITROGEN Specim en Type: PLASMA No comment enter ed. Ordering Provid er: SHELLY GUERRERO Report Released Date/Time: Jan 24, 2021 10:32 AM Reporting Lab: [facility] [address] [facility] [address] Performing Lab: [facility] [address] [facility] [address] UREA NITROGEN 19 8-26 May 20, 2021 09:35 AM [facility] EXTRA MINT TUBE Specim en Type: PLASMA No comment enter ed. Ordering Provid er: SHELLY GUERRERO Report Released Date/Time: May 20, 2021 09:50 AM Reporting Lab: [facility] [address] [facility] [address] Performing Lab: [facility] [address] [facility] [address] EXTRA MINT TUBE RECEIVED May 20, 2021 [facility] CREATININE(INCLUDES EGFR) Sp ecimen Type: PLASMA 09:35 AM No comment enter ed. Ordering Provid er: SHELLY GUERRERO Report Released Date/Time: Jan 24, 2021 10:32 AM Reporting Lab: [facility] [address] [facility] [address] Performing Lab: [facility] [address] [facility] [address] CREATININE 1.2 0.7-1.2 CREAT EGFR(CKD-EPI) 63 >60 May 16, 2021 10:33 AM [facility] POC CREATININE Specim en Type: BLOOD No comment enter ed. Ordering Provid er: LIAM MEJIA Report Released Date/Time: May 16, 2021 10:35 AM Reporting Lab: [facility] [address] [facility] [address] Performing Lab: [facility] [address] [facility] [address] POC CREATININE 1.4 0.6-1.3 Vital Signs: All taken on the encounter date This section contains inpatient and outpatient Vital Signs collected on the date of the Encounter. Date/Time Temperature Pulse Blood Respiratory SP02 Pain Height Weight Arslan dy Source Pressure Rate Mass Index May 26, 136/76 [place] 2021 03:29 mm[Hg] [facility] May 26, 98.4 F 83 146/72 18 /min 96 % 0 193 lb 29 [place] 2021 03:21 /min mm[Hg] [facility] Social History: Smoking Status (Most current) and Tobacco Use (All prior to encounter date) This section includes the most current, and the historical, smoking and tobacco-related health factors from the ID facility where the Encounter took place.Current Smoking Status This section includes the most current smoking, or tobacco-related health factor, from the ID facility where the Encounter took place. Date/Time Current Smoking Status Comment Facility May 26, 2021 03:30 PM ID-TOBACCO FORMER USER [facility] Tobacco Use History This section includes a history of the smoking, or tobacco- related health factors, that were collected on or before the date of the Encounter. The data comes from the ID facility where the Encounter took place. Date/Time Smoking Status/Tobacco Use Comment [facility] May 26, 2021 03:30 PM VA-TOBACCO QUIT 15 YRS OR MORE [facility] Jul 05, 2020 06:42 PM VA-TOBACCO FORMER USER [facility] Jan 09, 2018 02:01 PM VA-TOBACCO FORMER USER [facility] Jan 09, 2018 02:01 PM VA-TOBACCO QUIT 5 TO < 15 YRS [facility] Apr 16, 2017 10:17 AM FORMER TOBACCO USER 7Y OR GREATER [facility] Jun 09, 2016 10:03 AM FORMER TOBACCO USER 7Y OR GREATER [facility] May 06, 2015 08:19 AM FORMER TOBACCO USER 7Y OR GREATER [facility] Advance Directives: All historical and current Section Date Range: From patient's date of to the date document was created. This section includes ALL of a patient's completed or amended ID Advance and Rescinded Directives. The entries below indicate that a directive exists for the patient, but an actual copy is not included with this document. The data comes from all [facility]. Date Advance Directives Provider Source July 24, 2021 ADVANCE DIRECTIVE PAPA LEWIS [facility] July 24, 2021 ADVANCE DIRECTIVE DISCUSSION PAPA LEWIS [facility] Radiology Reports: +/- 30 days of [...] the Encounter. The data comes from all ID treatment facilities. Date/Time Radiology Report Provider Source Jun 10, 2021 09:50 AM US LOWER EXTREMITY ARTERY (BILATERAL) (P): JOHN SALEEM [facility] ANDER LOCKWOOD [id number] [birth year] 8 M Exm Date: JUN 10, 2021@09:50 Req Phys: LIAM MEJIA Loc: [facility] PACT PEAR L 4E (Req'g Loc) Img Loc: Ultrasound Imaging Service: Unknown (Case [id number] COMPLETE) US LOWER EXTREMITY ARTERIES BILAT(US Detailed) CPT:16705 Reason for Study: as below Clinical History: Waka IS NOT under investigation for COVID-19 or is COVID-19 negative leg cramps at night and with walking, assess fo r PAD Responsible provider name and phone number to n otify for critical findings if other than user placing the order a nd pager listed below: User placing orders pager: [phone] rona son LAST CREATININE 1.2 (05/20/21) Report Status: Verified Date Reported: JUN 10, 2021 Date Verified: JUN 10, 2021 Datastage Architect E-Sig:/ES/JOHN SALEEM MD Report: Duplex Ultrasound of the Bilateral Lower Extrem ity Arteries History: Leg cramps at night and with walking, assess for PAD. Technique: Arterial duplex examination performe d using B-mode, color flow and spectral Doppler assessment. Comparison: CT CAP 05/16/2021 Findings: Peak systolic velocities were measured as follo ws: Right lower extremity: LAP MAKER prox: 23 cm/sec LAP MAKER mid: 143 cm/sec LAP MAKER dis terence: 75 cm/sec PFA: 94 cm/sec SFA prox: 111 cm/sec SFA mid: 74 cm/sec SFA distal: 70 cm/sec Popliteal prox: 60 cm/sec Pop liteal mid: 41 cm/sec Popliteal distal: 46 cm/sec ASHU prox calf: 25 cm/sec Common trunk: 32 cm/se c CIVIL DRAFTER ankle: 26 cm/sec ASHU ankle: 31 cm/sec Waveforms are monophasic throughout. Collateral vessels visualized at the mid common femoral artery. Left lower extremity: LAP MAKER prox: 139 cm/sec LAP MAKER mid: 129 cm/sec LAP MAKER di stal: 126 cm/sec PFA: 146 cm/sec SFA prox: 156 cm/sec SFA mid: 1 19 cm/sec SFA distal: 75 cm/sec Popliteal prox: 54 cm/sec Pop liteal mid: 49 cm/sec Popliteal distal: 61 cm/sec ASHU prox calf: 33 cm/sec Common trunk: 39 cm/se c CIVIL DRAFTER ankle: 51 cm/sec ASHU ankle: 33 cm/sec [...] HERE. Lower Extremity Arterial Duplex Interpretation Guidelines ([place] arteries, bypass grafts, iliac, femoral, poplit eal [...] of the occlusion. Reconstitution is recognized by restorationist of color in the ar michael with a collateral vessel identified at the level of re constitution. Note: Extremely low flow states are present bot h above and below occlusions; make sure the color parameters are adjusted to detect these low velocities. Otherwise, the length of the occlusion could be overestimated. IJOHN, have reviewed the images and report. Primary Interpreting Staff: JOHN SALEEM MD, RADIOLOGIST (Datastage Architect) Primary Interpreting Resident: MARIAH PUTNAM DO, SENIOR MASTER SCHEDULER /hsh Jun 10, 2021 09:24 AM SEGMENTALS/SYED: JOHN SALEEM [facility] ANDER LOCKWOOD [id number] -[birth year] 8 M Exm Date: JUN 10, 2021@09:24 Req Phys: LIAM MEJIA Pat Loc: [facility] PACT PEAR L 4E (Req'g Loc) Img Loc: VASCULAR LAB PROCEDURES Service: Unknown (Case [id number] COMPLETE) SEGMENTALS/SYED (VAS Detaile d) CPT:87759 Reason for Study: as below Clinical History: [...] pager listed below: User placing orders pager: [phone] rona son LAST CREATININE 1.2 (05/20/21) Report Status: Verified Date Reported: JUN 10, 2021 Date Verified: JUN 10, 2021 Datastage Architect E-Sig:/ES/JOHN SALEEM MD Report: Bilateral Lower Extremity [...] Primary Interpreting Staff: JOHN SALEEM MD, RADIOLOGIST (Datastage Architect) Primary Interpreting Resident: MARIAH PUTNAM DO, SENIOR MASTER SCHEDULER /[facility] May 16, 2021 10:[address] (CAP) CHEST/ABD/PELVIS (P): MIGUELITO BRANDON [facility] ANDER LOCKWOOD [id number] -[birth year], [birth year] 8 M Exm Date: MAY 16, 2021@10:39 Req Phys: SHELLY GUERRERO Loc: [facility] ONC LUIKART 3V (Req' Img Loc: CT IMAGING Service: Unknown (Case [id number] COMPLETE) CT (CAP) CHEST W CONTRAST (C T Detailed) CPT:98074 Contrast Media : Non-ionic Iodinated Reason for Study: NSCLC in remission. Follicula r lymphoma. Re-staging. (Case [id number] COMPLETE) CT (CAP) ABDOMEN/PELVIS W CO NTRAS(CT Detailed) CPT:91613 Contrast Media : Non-ionic Iodinated Clinical History: Waka IS NOT under investigation for COVID-19 or is COVID-19 negative 75yo with PMH NSCLC s/p treatment and follicula r lymphoma s/p treatment. Re-staging. Responsible provider helen acosta and phone number to notify for critical findings if other than user placing the order and pager listed below: User placing orders pager: [phone] LAST 3: Collection DT Specimen Test Name [...] 16, 2021 Date Verified: MAY 16, 2021 Datastage Architect E-Sig:/ES/MIGUELITO BRANDON MD Report: Exam: CT chest, [...] with reconstitution of the right internal and insulation worker interior surface al iliac vessels via collaterals. No abdominal [...] lobectomy. 4. Left-sided colonic diverticulosis without ac kendrick diverticulitis. 5. Additional findings in the chest, abdomen, a nd pelvis as described in the body of the report. Primary Interpreting Staff: MIGUELITO BRANDON MD, RADIOLOGIST (Datastage Architect) /BJB Encounter Notes: All associated encounter notes This section contains the clinical notes associated to the Encounter. Date/Time Encounter Note(s) Provider Source Jun 12, 2021 02:25 PM LETTERS: LIAM MEJIA [facility] LOCAL TITLE: FOLLOW UP RESULTS LETTER STANDARD TITLE: LETTERS DATE OF NOTE: JUN 12, 2021@14:25 ENTRY DATE: JUN 12, 2021@14:25:13 AUTHOR: LIAM MEJIA EXP COSIGNER: URGENCY: STATUS: COMPLETED [facility] [address] [place] [address] Jun ANDER LOCKWOOD [address] [facility] [address] Dear Waka: I am writing to inform you of the results of the tests you had done at the [facility]. The tests below were performed and are satisfactory unless otherwise noted. Comments: The vascular studies done on your legs on 06/10/21 do suggest some peripheral vascular disease. I have placed a con sult with our Vascular Surgery Department to discuss treatment options. I anticipate that you will hear from them soon to schedule an appointment. If they do not feel a clinic appointment is indicated at this time, I will le t you know and share their recommendations with you. If you have any further questions or problems, maria esther ellison contact our nursing staff or me at the following number: . Sincerely, LIAM MEJIA MD STAFF PHYSICIAN May 26, 2021 04:03 PM INTERNAL MEDICINE NOTE: [facility] LOCAL TITLE: MEDICINE CLINIC NOTE STANDARD TITLE: INTERNAL MEDICINE NOTE DATE OF NOTE: MAY 26, 2021@16:03 ENTRY DATE: MAY 26, 2021@16:03:32 AUTHOR: LIAM MEJIA EXP COSIGNER: URGENCY: STATUS: COMPLETED MEDICINE CLINIC NOTE Has ADDENDA (x)Nurse's notes reviewed from today. ANDER LOCKWOOD is a 75 year old MALE wi th the following Chief complaint: Follow up for probs listed below. HPI/ROS:Pt is a very pleasan t 75 y/o male here with to f/u on probs listed below. Reports that lately h e's been feeling the best he's felt in a long time. Follows with Heme/Onc for personal h/o l abel ca and nonHodgkin's lymphoma. Also has a possible renal cell carcinoma for which he has seen Urology but which is now followed by Heme/Onc. Has severe sle ep apnea, is not using his CPAP, would like to talk to Sleep Med about other options, o r making CPAP more tolerable, will place consult. Has been COVID vax'd /boosted. Has seen EP Cardiology about intermittent afib, reader is referred to those n otes for further details. Due for colonoscopy, will inquire of Heme/Onc provid er if they feel this is advisable. Notes leg cramps at night and with wa lking, will get ABIs and arterial studies. Not sleeping well at night, no SI or HI, agrees to talk to [facility]. Pt's best friend from first grade of a heart attack this year, which has been hard on him. Does t mulugeta naps during the day, so might be helped by some sleep hygiene tips. Rash tur nguyễn out to be scabies and has resolved with rx. never got it. BP at home und er acceptable control. No other concerns this visit. Active problems - Computerized Problem List is [...] Obstructive sleep apnea of adult 14. Rash Tobacco: () Pt smokes or uses tobacco products and was c ounseled to d/c. The patient was offered medication to assist wi th smoking cessation. The patient was also offered a referral to a [facility] cessation program. () Pt is not using tobacco products now but has used them in the past year. (Pt counseled to remain abstinent.) (x) Pt hasn't used tobacco products for a year or more. () Pt has never used tobacco products. Allergies: Patient has answered NKA Active and Recently Outpatient Medicatio ns (including [...] MORNING . PLEASE REPEAT 1 WEEK LATER 9) PETROLATUM (WHITE) OINT APPLY LIBERAL AMOUNT ACTIVE TOPICALLY TWICE DAILY FOR LIGHT TREATMENT 10) TERBINAFINE HCL 1% CREAM APPLY THIN LAYER TO PICALLY ACTIVE TWICE A DAY FOR FUNGAL INFECTION 11) TRIAMCINOLONE ACETONIDE 0.1% OINT APPLY THIN LAYER ACTIVE TOPICALLY TWICE A DAY AVOID FACE,GROIN & ARMP ITS *FOR EXTERNAL USE ONLY FOR DERMATITIS 12) ZINC OXIDE 20% OINT APPLY THIN LAYER TOPICAL LY EVERY ACTIVE DAY TO AFFECTED AREA FOR MOISTURE PROTECTION Inactive Outpatient Medications Status 1) CLINDAMYCIN PHOSPHATE 1% LOTION APPLY TO THIG HS AND LOWER ABDOMEN TOPICALLY TWICE A DAY 2) DILTIAZEM (EQV-TIAZAC) 180MG 24HR CAP TAKE ON E DISCONTINUED CAPSULE BY MOUTH EVERY DAY 3) FAMOTIDINE 20MG TAB TAKE ONE TABLET BY MOUTH TWICE A DISCONTINUED DAY FOR GERD*REPLACES RANITIDINE 4) FOLIC ACID 1MG TAB TAKE ONE TABLET BY MOUTH E VERY DAY DISCONTINUED FOR CHEMO PREMED 5) HYDROXYZINE HCL 10MG TAB TAKE ONE TABLET BY M OUTH AT BEDTIME FOR ITCHING 6) METOPROLOL TARTRATE 50MG TAB TAKE ONE TABLET BY MOUTH DISCONTINUED TWICE A DAY 7) METOPROLOL TARTRATE 50MG TAB TAKE ONE-HALF TA BLET BY DISCONTINUED MOUTH TWICE A DAY (EDIT) 8) OLODATEROL/TIOTROP 2.5MCG/ACTUAT 60D INH INHA LE 2 DISCONTINUED PUFFS BY INHALATION EVERY DAY TO PREVENT TROUBL E BREATHING 9) ONDANSETRON HCL 8MG TAB TAKE ONE TABLET BY MO UTH DISCONTINUED EVERY 8 HOURS NEEDED FOR NAUSEA 10) PROCHLORPERAZINE MALEATE 10MG TAB TAKE ONE T ABLET BY MOUTH EVERY 6 HOURS NEEDED FOR NAUSEA AND VOMITING. DO NOT TAKE MORE THAN 40 MG PER DAY 11) PROCHLORPERAZINE MALEATE 10MG TAB TAKE ONE T ABLET BY DISCONTINUED MOUTH EVERY 6 HOURS NEEDED FOR NAUSEA AND VOMITING. DO NOT TAKE MORE THAN 40 MG PER DAY 12) SULFAMETHOXAZOLE 400/TRIMETH 80MG TAB TAKE 1 TABLET DISCONTINUED BY MOUTH EVERY DAY TO PREVENT INFECTION WHILE O N HIGH DOSE PREDNISONE 13) TRIAMCINOLONE ACETONIDE 0.025% CREAM APPLY A THIN DISCONTINUED LAYER TOPICALLY SIX TIMES A DAY TO ITCHY SKIN AREASAVOID FACE,GROIN & ARMPITS *FOR EXTERNAL USE ONLY 14) UREA 40% CREAM APPLY THIN LAYER EVERY DAY OR TWICE A DAY FOR THICK SKIN ON SOLES OF FEET Active Non-VA Medications Status 1) Non-VA CHOLECALCIF 25MCG (D3-1,000UNIT) TAB 5 0MCG ACTIVE MOUTH EVERY DAY 2) Non-VA MAGNESIUM OXIDE TAB 400MG MOUTH EVERY DAY ACTIVE 3) Non-VA MULTIVITAMIN CAP/TAB 1 TABLET MOUTH EV ALEKSANDRA DAY ACTIVE 29 Total Medications MEDICATION RECONCILIATION Outpatient At this visit I have reviewed the medication li st, and discussed relevant medications with the patient/surrogate . An updated patient medication list was given to the participant(s). No Change Family/Social History: , here with , loves to fish EXAM: VS: Temp: 98.4 F [36.9 C] (05/26/2021 15:21) BP: 136/76 (05/26/2021 15:29) Pulse:83 (05/26/2021 15:21) Resp: 18 (05/26/2021 15:21) BMI: 29.4 Pain: 0 (05/26/2021 15:21) Weight: WEIGHTS IN LAST 6 MONTHS: 193 (MAY 26, 2021@15:21:07) 191.4 (MAY 20, 2021@08:20:26) General Appearance: pleasant, masked elderly mitzi chavez, here with , no distress Mental Status: no deficits noted this visit Neck: no bruits or nodes, nl thyroid HEENT: masked, TMs normal bilaterally Cardiac: rrr w/o r,m,g JVP: nl Lungs: clear Abdomen: normal bowel sounds, soft, nontender w /o masses or HSM Extremities: Edema (x)None ()1+ ()2+ ()3+ ()4+ Pulses (x)REHABILITATION TEAM LEAD ()1+ ()2+ ()3+ ()4+ Gait: steady Data/Labs: Collection DT Specimen Test Name Result Units Ref Range 11/23/2020 09:15 BLOOD HEMOGLOBIN A1C 5.2 % 4.0 - 6.0 Lipids: CHOLESTEROL 140 (11/23/20) HDL 51 (11/23/20) LDL CALCULATION 69 (11/23/20) MEASURED LDL____ TRIGLYCERIDE 99 (11/23/20) SMA-7: SODIUM 141 (01/19/21) POTASSIUM 4.4 (01/19/21) CHLORIDE 108 H (01/19/21) CO2 26 (01/19/21) UREA NITROGEN 19 (05/20/21) CREATININE 1.2 (05/20/21) GLUCOSE 97 (01/19/21) CBC: WBC 6.68 (01/19/21) HGB 11.6 L (01/19/21) HCT 36.1 L (01/19/21) MCV 94.3 (01/19/21) PLT 251 (01/19/21) LFTs: SGOT 18 (01/19/21) SGPT 22 (01/19/21) TSH 1.77 (11/23/20) SLT - Occult Blood Collection DT Specimen Test Name Result Units Re f Range 05/24/2015 10:38 FECES OCCULT BLOOD-HS#1Negative 05/24/2015 10:38 FECES OCCULT BLOOD-HS#2Negative 05/24/2015 10:38 FECES OCCULT BLOOD-HS#3Negative PSA 1.12 SERUM (11/23/20 09:15) 0.87 PLASMA (04/16/17 09:59) 0.98 PLASMA (06/09/16 08:25) will plan updated blood draw with next Heme/Onc blood draw Assessment and Plan: 1. Personal h/o lung, lymphoma and possible chuy l malignancies: follows with Heme/Onc. Currently feeling better than he has i n a long time. 2. RHM: COVID vax'd/boosted, PSA low normal, AAA screen negative 2015, will inquire of Heme/Onc provider if colonoscopy advi sable. (Grandfather had colon ca, sister had multiple polyps, pt had hyperplas tic, not adenomatous polyp in 2016 with 6 year f/u interval recommended). 3. Leg cramps: both at night and with walking, w ill check segmentals and arterial US. 4. Afib: NSR on exam this visit, has seen EP car diology, meds as above. 5. Lipids: LDL at target on current regimen. 6. Sleep apnea: severe, not using CPAP, will place sleep med consult for help. 7. Insomnia: will alert [facility] I providers on this note to please contact pt. No SI or HI but could use help with sleep hygiene. 8. BP: acceptable control at home. 9. Rash: resolved - was scabies. (x) Patient/Caregiver indicates readiness to enmanuel rn, verbalizes understanding, agreement and satisfaction with the treatment pl an. Patient/Caregiver doesn't have any further questions today. () /Caregiver indicates readiness to lear n and has been instructed on action, dose, frequency, and side effects of the medication. Waka/Caregiver verbalizes understanding. /shalonda/ LIAM MEJIA MD STAFF PHYSICIAN Signed: 05/29/2021 17:47 Receipt Acknowledged By: 05/30/2021 08:53 /shalonda/ Jaky Fierro, PhD, Staff Psychologist, [facility] 05/30/2021 08:57 /shalonda/ Jaky Fierro, PhD, Staff Psychologist, [facility] for DEBBIE BENSON 05/29/2021 ADDENDUM STATUS: COMPLETED PCP respectfully alerting Dr. Sanford to above not e with request that he review and comment upon advisability of/need for colono scopy in light of pt's malignancy history. Please alert this designer/writer as an additional signer to any comments/recommendations. PCP appreciative. /shalonda/ LIAM MEJIA MD STAFF PHYSICIAN Signed: 05/29/2021 17:49 Receipt Acknowledged By: 05/30/2021 00:18 /shalonda/ Sheila Sanford MD HEMATOLOGY/ONCOLOGY STAFF 05/30/2021 ADDENDUM STATUS: COMPLETED Despite having multiple mal ignancies the pt still has good prognosis. From the lung cancer stand point, he could be already cured from it. But statistically he has about 56% chance of being alive in 5 years. From the lymphoma perspective, also he is expected to liver years with it. So I think having the colonoscopy is a good idea for this pt. /shalonda/ Sheila Sanford MD HEMATOLOGY/ONCOLOGY STAFF Signed: 05/30/2021 00:18 Receipt Acknowledged By: 05/31/2021 11:11 /shalonda/ LIAM MEJIA MD STAFF PHYSICIAN 05/30/2021 ADDENDUM STATUS: COMPLETED Will alert [facility] team to pt's interest in intake to discuss sleep concerns. /shalonda/ Jaky Fierro, PhD, Staff Psychologist, [facility] Signed: 05/30/2021 08:57 05/31/2021 ADDENDUM STATUS: COMPLETED Colonoscopy actually due in 01/[address]22. [address] order for phone visit to discuss in 12/2021. /shalonda/ LIAM MEJIA MD STAFF PHYSICIAN Signed: 05/31/2021 11:12 05/31/2021 ADDENDUM STATUS: COMPLETED Waka was referred to the designer/writer by their PACT team. The was met over telephone to schedule initia l [facility] appointment. reported concerns about not being able to sleep. The was scheduled for 06/10 at 13:00 F2F in 4F. The stated the current symptoms do not r equire immediate and urgent assistance. The designer/writer addressed the veterans qu estions and concerns. /shalonda/ Fide Schaefer, PhD, Staff Psychologist [facility] Signed: 05/31/2021 16:17 06/23/2021 ADDENDUM STATUS: COMPLETED Vascular consult opinion 06/23/21: claudication. No evidence of CLI Discussed with [...] agrees to thi s treatment plan. /es/ Wu Sofia MD Staff Physician Signed: 06/23/2021 10:53 May 26, 2021 03:25 PM INTERNAL MEDICINE OUTPATIENT NOTE: [facility] LOCAL TITLE: MEDICINE CLINIC NURSING NOTE STANDARD TITLE: INTERNAL MEDICINE OUTPATIENT NOT E DATE OF NOTE: MAY 26, 2021@15:25 ENTRY DATE: MAY 26, 2021@15:25:17 AUTHOR: [facility] EXP COSIGNER: URGENCY: STATUS: COMPLETED TYPE OF VISIT: Appointment Check In Type of appointment: In-person appointment REASON FOR VISIT: Annual visit ALLERGIES: Patient has answered NKA VITAL SIGNS: Blood Pressure: 146/72 (05/26/2021 15:21) recheck 136/76 Pulse: 83 (05/26/2021 15:21) Respiration: 18 (05/26/2021 15:21) Temperature: 98.4 F [36.9 C] (05/26/2021 15:21) Weight: 193 lb [87.7 kg] (05/26/2021 15:21) Height: 68 in [172.7 cm] (11/12/2020 10:17) BMI: 29.4 O2 Sat: 96% (05/26/2021 15:21) Pain: 0 (05/26/2021 15:21) PAIN SCREEN: Patient is not having significant pain that the y wish to discuss with their provider today. MEDICATION Active Outpatient Medications (including Suppli es): ALBUTEROL 90MCG (CFC-F) 200D ORAL INHL INHALE 2 PUFFS BY ACTIVE INHALATION FOUR TIMES A DAY NEEDED SHAKE WELL (FOR IMMEDIATE RELIEF). APIXABAN 5MG TAB TAKE ONE TABLET BY MOUTH EVERY 12 HOURS ACTIVE TO PREVENT AND/OR TREAT BLOOD CLOTS ATORVASTATIN CALCIUM 20MG TAB TAKE ONE-HALF TAB LET BY ACTIVE MOUTH AT BEDTIME FOR CHOLESTEROL DILTIAZEM (EQV-TIAZAC) 180MG 24HR CAP TAKE ONE CAPSULE BY ACTIVE MOUTH EVERY DAY FAMOTIDINE 20MG TAB TAKE ONE TABLET BY MOUTH TW ICE A DAY ACTIVE FOR GERD*REPLACES RANITIDINE FOLIC ACID 1MG TAB TAKE ONE TABLET BY MOUTH RAYSA RY DAY FOR ACTIVE CHEMO PREMED OLODATEROL/TIOTROP 2.5MCG/ACTUAT 60D INH INHALE 2 PUFFS BY ACTIVE INHALATION EVERY DAY TO PREVENT TROUBLE BREATHI NG PERMETHRIN 5% CREAM APPLY THIN LAYER TOPICALLY DIRECTED ACTIVE PLEASE APPLY TO ENTIRE SKIN FROM NECK DOWN AND LEAVE ON OVERNIGHT. WASH OFF IN THE MORNING. PLEASE REPE AT 1 WEEK LATER PETROLATUM (WHITE) OINT APPLY LIBERAL AMOUNT TO PICALLY ACTIVE TWICE DAILY FOR LIGHT TREATMENT TERBINAFINE HCL 1% CREAM APPLY THIN LAYER TOPIC ALLY TWICE ACTIVE A DAY FOR FUNGAL INFECTION TRIAMCINOLONE ACETONIDE 0.1% OINT APPLY THIN LA ALTAF ACTIVE TOPICALLY TWICE A DAY AVOID FACE,GROIN & ARMP ITS *FOR EXTERNAL USE ONLY FOR DERMATITIS ZINC OXIDE 20% OINT APPLY THIN LAYER TOPICALLY EVERY DAY ACTIVE TO AFFECTED AREA FOR MOISTURE PROTECTION Non-VA CHOLECALCIF 25MCG (D3-1,000UNIT) TAB 50M CG MOUTH ACTIVE EVERY DAY Non-VA MAGNESIUM OXIDE TAB 400MG MOUTH EVERY DA Y ACTIVE Non-VA MULTIVITAMIN CAP/TAB 1 TABLET MOUTH EVER Y DAY ACTIVE Over the Counter/Herbal Medications: The patient states that they take some outside medications and/or herbals. Tobacco Use Screening: The patient is a former tobacco user. The patient quit fifteen or more years ago. Nursing Annual Screening: Fall History Screen During the past 12 months, have you had any fal ls? Patient does not report any falls in the past 1 2 months. MEDICATIONS: Patient does not have an active prescription fo r one of the following medications: Antihypertensives, Antidepressants , Antipsychotics, Diuretics, or Opioid Analgesics (Contolled Subs tance medications used for pain). FALL RISK ADVICE: Fall Risk Advice provided. Handout entitled Fa ll Prevention At Home reviewed and given to patient and/or hamzah iverson other. Script Talk Screen Are you able to read your prescription bottles with your glasses, magnifiers or other aids? Yes or patient not taking any prescriptions. Skin Screen Patient reports any current pressure ulcers, a history of pressure ulcers, or a wound from a medical front desk specialist or Patient is bed-confined or a wheelchair-user or Patient requires assistance to transfer/change position No, Skin Screen is Negative Home Abuse/Violence Screen Is your home free of abuse and violence? Yes Outpatient Nutrition Screen Body Mass Index (BMI)= 29.4 [place]: Collection DT Specimen Test Name Result Units R ef Range 11/23/2020 09:15 BLOOD HEMOGLOBIN A1C 5.2 % 4.0 - 6.0 [place] Hgb A1C: No data available [place] Hgb A1C: No data available Point of Care Hgb A1C: POC HGB A1C____ Is patient's BMI less than 18.5? No Does patient have swallowing, coughing, or chew ing problems affecting oral intake? No Has patient experienced unplanned weight loss o r gain greater than 10 pounds over the last 2 months? No Is patient's Hgb A1C (Glycosylated Hemoglobin) greater than 9.5? Information not available Is patient receiving Total Parenteral Nutrition (TPN) or Tube Feedings? No Patient Health Education Screen BARRIERS/SPECIAL NEEDS: Hearing limitations Visual limitations PREFERRED STYLE OF LEARNING: Reading Client Assistive Service (LEELA) Screen Does the patient require assistance with outpat ient visit? No /shalonda/ [facility] JEFFERS LPN YOUTH CARE PROFESSIONAL Signed: 05/26/2021 15:28 May 26, 2021 03:13 PM [facility] AD NOTIFICATION AND SCREENING STANDARD TITLE: ADVANCE DIRECTIVE DATE OF NOTE: MAY 26, 2021@15:13 ENTRY DATE: MAY 26, 2021@15:13:34 AUTHOR: KEL CLANCY EXP COSIGNER: URGENCY: STATUS: COMPLETED ADVANCE DIRECTIVE NOTIFICATION: Patient was given written notification of the [facility] rights: 1. Accept or refuse any medical treatment. 2. Complete a durable power of commercial attorney for [facility] care. 3. Complete a living will. ADVANCE DIRECTIVE SCREENING: Does patient have an Advance Directive? The patient has an Advance Directive. Does the patient wish to make any changes or re voke their current Advance Directive? Yes, vet brought in AD. Will send down to julianne hudson. /shalonda/ KEL CLANCY ADVANCED MSA Signed: 05/26/2021 15:15
--- OUTSIDE RECORDS SUMMARY | 2021-11-18 09:14 | XMS_ITS | Encounter Summary ---
:1945 Author Organization [facility] Address [address] [place] [id number] Support Name Relationship Address Phone SILKE LOCKWOOD Unavailable [phone] [address] SILKE LOCKWOOD Unavailable [phone] [address] Insurance Providers: All historical and current Section [...] Victor [place] Jun 10, [id number] [facility] (WNR) ADVANTAGE (WNR) 2020 8 [id number] [phone] ,ANDER Bennett [place] Jun 10, [id number] [facility] (WNR) ADVANTAGE (WNR) 2018 3 [id number] [phone] ,ANDER Bennett Selected Encounter This section includes the information on record at DC for the Encounter. Date/Time Encounter Type Encounter Reason Provider Source Description May 24, 2021 Outpatient TELEPHONE/SURGERY ICD-10-CM C64.1 UBALDO LOUIS 03:00 PM Encounter Malignant neoplasm of right kidney, except renal pelvis with Provider Comments: Malignant neoplasm of right kidney, except renal pelvis IHE Encounter Template Text not used by DC Assessments - Encounter Diagnoses This section includes the primary and secondary diagnoses documented for the Encounter. Date/Time Primary/Secondary Diagnosis Name Provider Source Diagnosis May 24, 2021 PRIMARY Malignant VERONICA LOUIS [facility] 03:00 PM neoplasm of HCS right kidney, except renal pelvis Plan of Treatment: Future Appointments (+ 6 months) and Future Tests (+/- 45 days) The Plan of Treatment section includes future care activities for the patient [facility] This section includes future appointments and future orders which are active, pending orscheduled.Future Appointments This section includes appointments that were scheduled to occur 6 months from the date of the Encounter, up to a maximum of 20 appointments. The data comes from all DC treatment [facility]. Appointment Date/Time Appointment Type Appointment Facili ty Name May 26, 2021 03:30 PM AMBULATORY - MEDICINE [facility] Jun 10, 2021 09:30 AM AMBULATORY - NONE [facility] Jun 10, 2021 10:00 AM AMBULATORY - NONE [facility] Jun 10, 2021 01:00 PM AMBULATORY - PSYCHIATRY [facility] Jun 23, 2021 09:00 AM AMBULATORY - SURGERY [facility] Jun 29, 2021 10:30 AM AMBULATORY - MEDICINE [facility] July 13, 2021 10:15 AM AMBULATORY - MEDICINE [facility] July 18, 2021 07:00 AM AMBULATORY - NONE [facility] Aug 22, 2021 10:28 AM AMBULATORY - MEDICINE [facility] Sep 15, 2021 09:00 AM AMBULATORY - MEDICINE [facility] Sep 15, 2021 09:30 AM AMBULATORY - MEDICINE [facility] Sep 15, 2021 10:00 AM AMBULATORY - NONE [facility] Oct 03, 2021 01:39 PM AMBULATORY - NONE [facility] Oct 03, 2021 01:42 PM AMBULATORY - NONE [facility] Oct 04, 2021 07:51 PM AMBULATORY - NONE [facility] Oct 14, 2021 10:30 AM AMBULATORY - MEDICINE [facility] Oct 25, 2021 12:27 PM AMBULATORY - NONE [facility] Oct 27, 2021 08:30 AM AMBULATORY - MEDICINE [facility] Oct 27, 2021 09:00 AM AMBULATORY - NONE [facility] Nov 02, 2021 09:00 AM AMBULATORY - MEDICINE [facility] Active, Pending, and Scheduled Orders This section includes a listing of several types of active, pending, and scheduled orders, including clinic medications orders, diagnostic test orders, procedure orders and consult orders; where the start date of the order is 45 days before the date of the Encounter or 45 days after the date of the Encounter. The data comes from all DC treatment [facility]. Test Date/Time Test Type Test Details Facility Name May 23, 2021 12:00 AM Laboratory - CBC & DIFF BLOOD ONCO SP [place] [facility] Chemistry Order ONCE May 23, 2021 12:00 AM Laboratory - COMPREHENSIVE METABOLIC HI [facility] Chemistry Order PANEL+MG PLASMA ONCO SP Jun 01, 2021 12:00 AM Laboratory - PSA SERUM SP [facility] Chemistry Order Jun 01, 2021 12:00 AM Laboratory - CBC [facility]LOOD [facility] Chemistry Order Jun 01, 2021 12:00 AM Laboratory - CREATININE(INCLUDES [place] Chemistry Order EGFR) PLASMA SP Jun 01, 2021 12:00 AM Laboratory - GLUCOSE [facility]ASMA [facility] Chemistry Order Jun 01, 2021 12:00 AM Laboratory - HEMOGLOBIN A1C BLOOD SP [facility] Order Jun 01, 2021 12:00 AM Laboratory - AST/SGOT PLASMA SP [facility] Chemistry Order Jun 01, 2021 12:00 AM Laboratory - ALT/SGPT PLASMA SP [facility] Order Jun 01, 2021 12:00 AM Laboratory - ELECTROLYTES/ANION GAP [place] [facility] Chemistry Order PLASMA SP Jun 01, 2021 12:00 AM Laboratory - LIPID PANEL,NON-FASTING [facility] Chemistry Order PLASMA SP Jun 01, 2021 12:00 AM Laboratory - TSH W/REFLEX TO FREE T4 [facility] Chemistry Order PLASMA SP Lab Results: +/- 30 days of the encounter This section includes the Chemistry and Hematology Lab Results on record with DC for the patient. Radiology Reports and Pathology Reports are provided separately, in subsequent sections.Lab Results This section contains the Chemistry/Hematology Results that were resulted 30 days before or 30 daysafter the date of the Encounter. Date/Time Source Result Type Result - Unit Interpretation Reference Range Comment May 20, 2021 09:35 AM [facility] EXTRA MINT TUBE Specim en Type: PLASMA No comment enter ed. Ordering Provid er: SHELLY GUERRERO Report Released Date/Time: May 20, 2021 09:50 AM Reporting Lab: [facility] [address] [facility] [address] Performing Lab: [facility] [address] [facility] [address] EXTRA MINT TUBE RECEIVED May 20, 2021 09:35 AM [facility] UREA NITROGEN Specim en Type: PLASMA No comment enter ed. Ordering Provid er: SHELLY GUERRERO Report Released Date/Time: Jan 24, 2021 10:32 AM Reporting Lab: [facility] [address] [place] [facility] [address] Performing Lab: [facility] [address] [facility] [address] UREA NITROGEN 19 8-26 May 20, 2021 [facility] CREATININE(INCLUDES EGFR) Sp ecimen Type: PLASMA 09:35 AM No comment enter ed. Ordering Provid er: SHELLY GUERRERO Report Released Date/Time: Jan 24, 2021 10:32 AM Reporting Lab: [facility] [address] [facility] [address] Performing Lab: [facility] [address] [facility] [address] CREATININE 1.2 0.7-1.2 CREAT EGFR(CKD-EPI) 63 >60 May 16, 2021 10:33 AM [facility] POC CREATININE Specim en Type: BLOOD No comment enter ed. Ordering Provid er: LIAM MEJIA Report Released Date/Time: May 16, 2021 10:35 AM Reporting Lab: [facility] [address] [facility] [address] Performing Lab: [facility] [address] [facility] [address] POC CREATININE 1.4 0.6-1.3 Social History: Smoking Status (Most current) and Tobacco Use (All prior to encounter date) This section includes the most current, and the historical, smoking and tobacco-related health factors from the DC facility where the Encounter took place.Current Smoking Status This section includes the most current smoking, or tobacco-related health factor, from the DC facility where the Encounter took place. Date/Time Current Smoking Status Comment Facility Jul 05, 2020 06:42 PM VA-TOBACCO FORMER USER [facility] Tobacco Use History This section includes a history of the smoking, or tobacco- related health factors, that were collected on or before the date of the Encounter. The data comes from the DC facility where the Encounter took place. Date/Time Smoking Status/Tobacco Use Comment [facility] Jan 09, 2018 02:01 PM VA-TOBACCO FORMER USER [facility] Jan 09, 2018 02:01 PM DC-TOBACCO QUIT 5 TO < 15 YRS [facility] Apr 16, 2017 10:17 AM FORMER TOBACCO USER 7Y OR GREATER [facility] Jun 09, 2016 10:03 AM FORMER TOBACCO USER 7Y OR GREATER [facility] May 06, 2015 08:19 AM FORMER TOBACCO USER 7Y OR GREATER [facility] Advance Directives: All historical and current Section Date Range: From patient's date of to the date document was created. This section includes ALL of a patient's completed or amended DC Advance and Rescinded Directives. The entries below indicate that a directive exists for the patient, but an actual copy is not included with this document. The data comes from all [facility]. Date Advance Directives Provider Source July 24, 2021 ADVANCE DIRECTIVE PAPA LEWIS [facility] July 24, 2021 ADVANCE DIRECTIVE DISCUSSION [facility] LE[facility]IS [facility] Radiology Reports: +/- 30 days of [...] the Encounter. The data comes from all DC treatment facilities. Date/Time Radiology Report Provider Source Jun 10, 2021 09:50 AM US LOWER EXTREMITY ARTERY (BILATERAL) (P): JOHN SALEEM [facility] ANDER LOCKWOOD [id number] -[birth year] 8 M Exm Date: JUN 10, 2021@09:50 Req Phys: LIAM MEJIA Loc: [facility] PACT PEAR L 4E (Req'g Loc) Img Loc: Ultrasound Imaging Service: Unknown (Case [id number] COMPLETE) US LOWER EXTREMITY ARTERIES BILAT(US Detailed) CPT:22133 Reason for Study: as below Clinical History: [place] IS NOT under investigation for COVID-19 or is COVID-19 negative leg cramps at night and with walking, assess fo r PAD Responsible provider name and phone number to n otify for critical findings if other than user placing the order a nd pager listed below: User placing orders pager: [phone] rona son LAST CREATININE 1.2 (05/20/21) Report Status: Verified Date Reported: JUN 10, 2021 Date Verified: JUN 10, 2021 Aluminum Siding Mechanic E-Sig:/ES/JOHN SALEEM MD Report: Duplex Ultrasound of the Bilateral Lower Extrem ity Arteries History: Leg cramps at night and with walking, assess for PAD. Technique: Arterial duplex examination performe d using B-mode, color flow and spectral Doppler assessment. Comparison: CT CAP 05/16/2021 Findings: Peak systolic velocities were measured as follo ws: Right lower extremity: RESIDENTIAL APPLIANCE REPAIR TECHNICIAN prox: 23 cm/sec RESIDENTIAL APPLIANCE REPAIR TECHNICIAN mid: 143 cm/sec RESIDENTIAL APPLIANCE REPAIR TECHNICIAN dis terence: 75 cm/sec PFA: 94 cm/sec SFA prox: 111 cm/sec SFA mid: 74 cm/sec SFA distal: 70 cm/sec Popliteal prox: 60 cm/sec Pop liteal mid: 41 cm/sec Popliteal distal: 46 cm/sec ASHU prox calf: 25 cm/sec Common trunk: 32 cm/se c SPACE CONTROL AGENT ankle: 26 cm/sec ASHU ankle: 31 cm/sec Waveforms are monophasic throughout. Collateral vessels visualized at the mid common femoral artery. Left lower extremity: RESIDENTIAL APPLIANCE REPAIR TECHNICIAN prox: 139 cm/sec RESIDENTIAL APPLIANCE REPAIR TECHNICIAN mid: 129 cm/sec RESIDENTIAL APPLIANCE REPAIR TECHNICIAN di stal: 126 cm/sec PFA: 146 cm/sec SFA prox: 156 cm/sec SFA mid: 1 19 cm/sec SFA distal: 75 cm/sec Popliteal prox: 54 cm/sec Pop liteal mid: 49 cm/sec Popliteal distal: 61 cm/sec ASHU prox calf: 33 cm/sec Common trunk: 39 cm/se c SPACE CONTROL AGENT ankle: 51 cm/sec ASHU ankle: 33 cm/sec [...] HERE. Lower Extremity Arterial Duplex Interpretation Guidelines ([place] arteries, bypass grafts, iliac, femoral, poplit eal [...] of the occlusion. Reconstitution is recognized by hoahaoism of color in the ar michael with [...] Primary Interpreting Staff: JOHN SALEEM MD, RADIOLOGIST (Aluminum Siding Mechanic) Primary Interpreting Resident: MARIAH PUTNAM DO, ABATTOIR MANAGER /hsh Jun 10, 2021 09:24 AM SEGMENTALS/SYED: JOHN SALEEM [facility] ANDER LOCKWOOD [id number] -[birth year], [birth year] 8 M Exm Date: JUN 10, 2021@09:24 Req Phys: LIAM MEJIA Loc: [facility] PACT PEAR L 4E (Req'g Loc) Img Loc: VASCULAR LAB PROCEDURES Service: Unknown (Case [id number] COMPLETE) SEGMENTALS/SYED (VAS Detaile d) CPT:30565 Reason for Study: as below Clinical History: Please note that this study requires a 30min apt. time. [place] IS NOT under investigation for COVID-19 or is COVID-19 negative leg cramps at night and with walking, assess fo r PAD, thanks Responsible provider name and phone number to n otify for critical findings if other than user placing the order a nd pager listed below: User placing orders pager: [phone] rona mejia LAST CREATININE 1.2 (05/20/21) Report Status: Verified Date Reported: JUN 10, 2021 Date Verified: JUN 10, 2021 Aluminum Siding Mechanic E-Sig:/ES/JOHN SALEEM MD Report: Bilateral Lower Extremity [...] Primary Interpreting Staff: JOHN SALEEM MD, RADIOLOGIST (Aluminum Siding Mechanic) Primary Interpreting Resident: MARIAH PUTNAM DO, ABATTOIR MANAGER /[facility] May 16, 2021 10:[address] (CAP) CHEST/ABD/PELVIS (P): MIGUELITO BRANDON [facility] ANDER LOCKWOOD [id number] -[birth year], [birth year] 8 M Ex Date: MAY 16, 2021@10:39 Req Phys: SHELLY GUERRERO Pat Loc: [facility] HEM ONC LUIKART 3V (Req' Img Loc: CT IMAGING Service: Unknown (Case [id number] COMPLETE) CT (CAP) CHEST W CONTRAST (C T Detailed) CPT:36620 Contrast Media : Non-ionic Iodinated Reason for Study: NSCLC in remission. Follicula r lymphoma. Re-staging. (Case [id number] COMPLETE) CT (CAP) ABDOMEN/PELVIS W CO NTRAS(CT Detailed) CPT:37566 Contrast Media : Non-ionic Iodinated Clinical History: [place] IS NOT under investigation for COVID-19 or is COVID-19 negative 75yo with PMH NSCLC s/p treatment and follicula r lymphoma s/p treatment. Re-staging. Responsible provider nam e and phone number to notify for critical findings if other than user placing the order and pager listed below: User placing orders pager: [phone] LAST 3: Collection DT Specimen Test Name [...] 16, 2021 Date Verified: MAY 16, 2021 Aluminum Siding Mechanic E-Sig:/ES/MIGUELITO BRANDON MD Report: Exam: CT chest, [...] with reconstitution of the right internal and granite block paver al iliac vessels via collaterals. No abdominal [...] lobectomy. 4. Left-sided colonic diverticulosis without ac [place] diverticulitis. 5. Additional findings in the chest, abdomen, a nd pelvis as described in the body of the report. Primary Interpreting Staff: MIGUELITO BRANDON MD, RADIOLOGIST (Aluminum Siding Mechanic) /BJB Encounter Notes: All associated encounter notes This section contains the clinical notes associated to the Encounter. Date/Time Encounter Note(s) Provider Source May 24, 2021 02:48 PM REPORT OF CONTACT: VERONICA LOUIS [facility] LOCAL TITLE: PATIENT CONTACT NOTE STANDARD TITLE: REPORT OF CONTACT DATE OF NOTE: MAY 24, 2021@14:48 ENTRY DATE: MAY 24, 2021@14:49:04 AUTHOR: HERIBERTOVERONICA EXP COSIGNER: URGENCY: STATUS: COMPLETED Patient contact Name of : ANDER LOCKWOOD Name/Relationship of Contact if other than Veter an: Date & Time of Contact: May@14:49 Type of Contact: Telephone Reason for Contact: 75-year-old seen on one occasion in March 2020 for an incidental 11 mm right renal mass suspicious for renal cell carcinoma. 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 Given the size of the tumor, an observant approach was recommended, in particular due to his compet ing other malignancies. I reach the patient via telephone in follow-up. The renal mass did not find explicit mention in the read, likely due to its small size. On my review it is visible but remai ns of similar size. CHEST: Right-sided Port-A-Cath with tip in the [...] with reconstitution of the right internal and granite block paver al iliac vessels via collaterals. No abdominal [...] lobectomy. 4. Left-sided colonic diverticulosis without ac [place] diverticulitis. 5. Additional findings in the chest, abdomen, a nd pelvis as A/P 75-year-old patient with follicular lymphoma and adenocarcinoma of the lung who is been followed for a s mall enhancing renal mass of approximately 11 mm in largest diameter. We discussed surveillance is t he preferred approach. This lesion has an approximately 50% probability of representing renal cell carcinoma but is not expected to metastasize at th is size and to likely grow slowly. The patient is scheduled to undergo repeat imaging f or his other malignancies for medical oncology and Dr. Alexander cartagena had already kindly reviewed the imaging findings including those of the kidney with the patient h ad a recent follow-up. I offered the patient semaj sy follow-up in urology versus the possibility that Dr. Gomez kindly keep an eye on the kidn ey and reconsult us for growth >=2 cm. The patient reports an excellent relatio nship with Dr. Gomez and welcomes that approach. PLAN -Discharge from urology -Dr. Gomez: The patient appe ars to get periodic imaging with you at least at 6- month intervals; if this is acceptable with you please simply refer the patient back to us if the mass grows to >= 2 cm in size. Thank you I spent approximately 15 min with the patient of which > 50% were devoted to counseling about his diagnosis, prognosis and d iscussion of management options. /shalonda/ VERONICA LOUIS MD UROLOGY STAFF Signed: 05/24/2021 15:05 Receipt Acknowledged By: * AWAITING SIGNATURE * CHACHO GOMEZ
--- OUTSIDE RECORDS SUMMARY | 2021-11-18 09:14 | XMS_ITS | Encounter Summary ---
:1945 Author Organization [facility] rs Address [address] [place] [id number] Support Name Relationship Address Phone SILKE LOCKWOOD Unavailable [id number] [address] SILKE LOCKWOOD Unavailable [id number] [place] [address] Insurance Providers: All historical and current Section [...] Victor [place] Jun 10, [id number] MANDIE Pabon ATIENT [facility] (WNR) ADVANTAGE (WNR) 2019 8 [id number] [phone] ,ANDER Bennett [place] Jun 10, [id number] ASHLEYTROM P ATIENT [facility] (WNR) ADVANTAGE (WNR) 2018 3 [id number] [phone] ,ANDER Bennett Selected Encounter This section includes the information on record at [place] for the Encounter. Date/Time Encounter Type Encounter Reason Provider Source Description May 20, 2021 OFFICE O/P EST CARDIOLOGY ICD-10-CM I48.91 KHANH SANDERS 08:30 AM HI 40-54 MIN Unspecified atrial N fibrillation with Provider Comments: Atrial fibrillation ([facility] [id number]) IHE Encounter Template Text not used by [place] Assessments - Encounter Diagnoses This section includes the primary and secondary diagnoses documented for the Encounter. Date/Time Primary/Secondary Diagnosis Name Provider Source Diagnosis May 21, 2021 PRIMARY Unspecified atrial KHANH SANDERS[place]OL [facility] 07:15 AM fibrillation N HCS Plan of Treatment: Future Appointments (+ 6 months) and Future Tests (+/- 45 days) The Plan of Treatment section includes [facility] care activities for the [facility] [place] [facility] This section includes future appointments and future orders which are active, pending orscheduled.Future Appointments This section includes appointments that were scheduled to occur 6 months from the date of the Encounter, up to a maximum of 20 appointments. The data comes from all [place] treatment facilities. Appointment Date/Time Appointment Type Appointment Facili ty Name May 24, 2021 03:00 PM AMBULATORY - SURGERY [facility] May 26, 2021 03:30 PM AMBULATORY - MEDICINE [facility] Jun 10, 2021 09:30 AM AMBULATORY - NONE [facility] Jun 10, 2021 10:00 AM AMBULATORY - NONE [facility] Jun 10, 2021 01:00 PM AMBULATORY - PSYCHIATRY [facility] Jun 23, 2021 09:00 AM AMBULATORY - SURGERY [facility] Jun 29, 2021 10:30 AM AMBULATORY - MEDICINE [facility] July 13, 2021 10:15 AM AMBULATORY - MEDICINE [facility] July 18, 2021 07:00 AM AMBULATORY - NONE [facility] Aug 22, 2021 10:28 AM AMBULATORY - MEDICINE [facility] Sep 15, 2021 09:00 AM AMBULATORY - MEDICINE [facility] Sep 15, 2021 09:30 AM AMBULATORY - MEDICINE [facility] Sep 15, 2021 10:00 AM AMBULATORY - NONE [facility] Oct 03, 2021 01:39 PM AMBULATORY - NONE [facility] Oct 03, 2021 01:42 PM AMBULATORY - NONE [facility] Oct 04, 2021 07:51 PM AMBULATORY - NONE [facility] Oct 14, 2021 10:30 AM AMBULATORY - MEDICINE [facility] Oct 25, 2021 12:27 PM AMBULATORY - NONE [facility] Oct 27, 2021 08:30 AM AMBULATORY - MEDICINE [facility] Oct 27, 2021 09:00 AM AMBULATORY - NONE [facility] Active, Pending, and Scheduled Orders This section includes a listing of several types of active, pending, and scheduled orders, including clinic medications orders, diagnostic test orders, procedure orders and consult orders; where the start date of the order is 45 days before the date of the Encounter or 45 days after the date of the Encounter. The data comes from all [place] treatment facilities. Test Date/Time Test Type Test Details Facility Name May 23, 2021 12:00 AM Laboratory - CBC & DIFF BLOOD ONCO SP [facility] Chemistry Order ONCE May 23, 2021 12:00 AM Laboratory - COMPREHENSIVE METABOLIC RI [facility] Chemistry Order PANEL+MG PLASMA ONCO SP Jun 01, 2021 12:00 AM Laboratory - CBC BLOOD SP ONCE [facility] Chemistry Order Jun 01, 2021 12:00 AM Laboratory - PSA SERUM [facility] Chemistry Order Jun 01, 2021 12:00 AM Laboratory - ELECTROLYTES/ANION GAP [place] [facility] Chemistry Order PLASMA SP Jun 01, 2021 12:00 AM Laboratory - GLUCOSE PLASMA SP [facility] Chemistry Order Jun 01, 2021 12:00 AM Laboratory - HEMOGLOBIN A1C [facility]LOOD SP [facility] Order Jun 01, 2021 12:00 AM Laboratory - [facility]INE[facility] Chemistry Order EGFR) PLASMA SP Jun 01, 2021 12:00 AM Laboratory - AST/SGOT PLASMA SP [facility] Chemistry Order Jun 01, 2021 12:00 AM Laboratory - ALT/SGPT PLASMA SP [facility] Chemistry Order Jun 01, 2021 12:00 AM Laboratory - TSH W/REFLEX TO FREE T4 [facility] Chemistry Order PLASMA SP Jun 01, 2021 12:00 AM Laboratory - LIPID PANEL,NON-FASTING [facility] Chemistry Order PLASMA SP Lab Results: +/- 30 days of the encounter This section includes the Chemistry and Hematology Lab Results on record with [place] for the patient. Radiology Reports and Pathology Reports are provided separately, in subsequent sections.Lab Results This section contains the Chemistry/Hematology Results that were resulted 30 days before or 30 daysafter the date of the Encounter. Date/Time Source Result Type Result - Unit Interpretation Reference Range Comment May 20, 2021 09:35 AM [facility] UREA NITROGEN Specim en Type: PLASMA No comment enter ed. Ordering Provid er: SHELLY GUERRERO Report Released Date/Time: Jan 24, 2021 10:32 AM Reporting Lab: [facility] [address] [facility] [address] Performing Lab: [facility] [address] UREA NITROGEN 19 8-26 May 20, 2021 09:35 AM [facility] EXTRA MINT TUBE Specim en Type: PLASMA No comment enter ed. Ordering Provid er: SHELLY GUERRERO Report Released Date/Time: May 20, 2021 09:50 AM Reporting Lab: [facility] [address] [facility] [address] Performing Lab: [facility] [address] [facility] [address] EXTRA MINT TUBE RECEIVED May 20, 2021 [facility] CREATININE(INCLUDES EGFR) Sp ecimen Type: PLASMA 09:35 AM No comment enter ed. Ordering Provid er: SHELLY GUERRERO Report Released Date/Time: Jan 24, 2021 10:32 AM Reporting Lab: [facility] [address] [facility] [address] Performing Lab: [facility] [facility] [address] CREATININE 1.2 0.7-1.2 CREAT EGFR(CKD-EPI) 63 >60 May 16, 2021 10:33 AM [facility] POC CREATININE Specim en Type: BLOOD No comment enter ed. Ordering Provid er: LIAM MEJIA Report Released Date/Time: May 16, 2021 10:35 AM Reporting Lab: [facility] [address] [facility] [address] Performing Lab: [facility] [address] [facility] [address] POC CREATININE 1.4 0.6-1.3 Vital Signs: All taken on the encounter date This section contains inpatient and outpatient Vital Signs collected on the date of the Encounter. Date/Time Temperature Pulse Blood Respiratory SP02 Pain Height Weight Arslan dy Source Pressure Rate Mass Index May 20 F 86 115/72 16 /min 97 % 0 191.4 29 [place] 2021 08:20 /min mm[Hg] lb [facility] Social History: Smoking Status (Most current) and Tobacco Use (All prior to encounter date) This section includes the most current, and the historical, smoking and tobacco-related health factors from the [place] facility where the Encounter took place.Current Smoking Status This section includes the most current smoking, or tobacco-related health factor, from the [place] facility where the Encounter took place. Date/Time Current Smoking Status Comment Facility Jul 05, 2020 06:42 PM VA-TOBACCO FORMER USER [facility] Tobacco Use History This section includes a history of the smoking, or tobacco- related health factors, that were collected on or before the date of the Encounter. The data comes from the [place] facility where the Encounter took place. Date/Time Smoking Status/Tobacco Use Comment Facil ity Jan 09, 2018 02:01 PM VA-TOBACCO FORMER USER [facility] Jan 09, 2018 02:01 PM VA-TOBACCO QUIT 5 TO < 15 YRS [facility] Apr 16, 2017 10:17 AM FORMER TOBACCO USER 7Y OR GREATER [facility] Jun 09, 2016 10:03 AM FORMER TOBACCO USER 7Y OR GREATER [facility] May 06, 2015 08:19 AM FORMER TOBACCO USER 7Y OR GREATER [facility] Advance Directives: All historical and current Section Date Range: From patient's date of to the date document was created. This section includes ALL of a patient's completed or amended [place] Advance and Rescinded Directives. The entries below indicate that a directive exists for the patient, but an actual copy is not included with this document. The data comes from all [place] facilities. Date Advance Directives Provider Source July 24, 2021 ADVANCE DIRECTIVE PAPA LEWIS [facility] July 24, 2021 ADVANCE DIRECTIVE DISCUSSION PAPA LEWIS [facility] Radiology Reports: +/- 30 days of [...] the Encounter. The data comes from all [place] treatment facilities. Date/Time Radiology Report Provider Source Jun 10, 2021 09:50 AM US LOWER EXTREMITY ARTERY (BILATERAL) (P): JOHN SALEEM [facility] ANDER LOCKWOOD RED [id number] -[birth year], [birth year] 8 M Exm Date: JUN 10, 2021@09:50 Req Phys: LIAM MEJIA Loc: [facility] PACT PEAR L 4E (Req'g Loc) Img Loc: Ultrasound Imaging Service: Unknown (Case [id number] COMPLETE) US LOWER EXTREMITY ARTERIES BILAT(US Detailed) CPT:26996 Reason for Study: as below Clinical History: Mart IS NOT under investigation for COVID-19 or is COVID-19 negative leg cramps at night and with walking, assess fo r PAD Responsible provider name and phone number to n otify for critical findings if other than user placing the order a nd pager listed below: User placing orders pager: [phone] rona mejia LAST CREATININE 1.2 (05/20/21) Report Status: Verified Date Reported: JUN 10, 2021 Date Verified: JUN 10, 2021 Thoracic Surgeon E-Sig:/ES/JOHN SALEEM MD Report: Duplex Ultrasound of the Bilateral Lower Extrem ity Arteries History: Leg cramps at night and with walking, assess for PAD. Technique: Arterial duplex examination performe d using B-mode, color flow and spectral Doppler assessment. Comparison: CT CAP 05/16/2021 Findings: Peak systolic velocities were measured as follo ws: Right lower extremity: BROACHING MACHINE OPERATOR prox: 23 cm/sec BROACHING MACHINE OPERATOR mid: 143 cm/sec BROACHING MACHINE OPERATOR dis terence: 75 cm/sec PFA: 94 cm/sec SFA prox: 111 cm/sec SFA mid: 74 cm/sec SFA distal: 70 cm/sec Popliteal prox: 60 cm/sec Pop liteal mid: 41 cm/sec Popliteal distal: 46 cm/sec ASHU prox calf: 25 cm/sec Common trunk: 32 cm/se c GRAY MIXING OPERATOR ankle: 26 cm/sec ASHU ankle: 31 cm/sec Waveforms are monophasic throughout. Collateral vessels visualized at the mid common femoral artery. Left lower extremity: BROACHING MACHINE OPERATOR prox: 139 cm/sec BROACHING MACHINE OPERATOR mid: 129 cm/sec BROACHING MACHINE OPERATOR di stal: 126 cm/sec PFA: 146 cm/sec SFA prox: 156 cm/sec SFA mid: 1 19 cm/sec SFA distal: 75 cm/sec Popliteal prox: 54 cm/sec Pop liteal mid: 49 cm/sec Popliteal distal: 61 cm/sec ASHU prox calf: 33 cm/sec Common trunk: 39 cm/se c GRAY MIXING OPERATOR ankle: 51 cm/sec ASHU ankle: 33 cm/sec [...] HERE. Lower Extremity Arterial Duplex Interpretation Guidelines (robinson arteries, bypass grafts, iliac, femoral, poplit eal [...] of the occlusion. Reconstitution is recognized by adventism of color in the ar michael with [...] images and report. Primary Interpreting Staff: JOHN SALEME MD, RADIOLOGIST (Thoracic Surgeon) Primary Interpreting Resident: MARIAH PUTNAM DO, ROUTE DELIVERY DRIVER /hs Jun 10, 2021 09:24 AM SEGMENTALS/SYED: JOHN SALEEM [facility] ANDER LOCKWOOD [id number] -[birth year], [birth year] 8 M Ex Date: JUN 10, 2021@09:24 Req Phys: LIAM MEJIA Loc: [facility] PACT PEAR L 4E (Req'g Loc) Img Loc: VASCULAR LAB PROCEDURES Service: Unknown (Case [id number] COMPLETE) SEGMENTALS/SYED (VAS Detaile d) CPT:95116 Reason for Study: as below Clinical History: Please note that this study requires a 30min apt. time. Mart IS NOT under investigation for COVID-19 or is COVID-19 negative leg cramps at night and with walking, assess fo r PAD, thanks Responsible provider name and phone number to n otify for critical findings if other than user placing the order a nd pager listed below: User placing orders pager: [phone] rona mejia LAST CREATININE 1.2 (05/20/21) Report Status: Verified Date Reported: JUN 10, 2021 Date Verified: JUN 10, 2021 Thoracic Surgeon E-Sig:/ES/JOHN SALEEM MD Report: Bilateral Lower Extremity [...] Primary Interpreting Staff: JOHN SALEEM MD, RADIOLOGIST (Thoracic Surgeon) Primary Interpreting Resident: MARIAH PUTNAM DO, ROUTE DELIVERY DRIVER /ssm [facility] May 16, 2021 10:[address] (CAP) CHEST/ABD/PELVIS (P): MIGUELITO BRANDON [facility] ANDER LOCKWOOD [id number] -[birth year] 8 M Ex Date: MAY 16, 2021@10:39 Req Phys: SHELLY GUERRERO Pat Loc: [facility] HEM ONC LUIKART 3V (Req' Img Loc: CT IMAGING Service: Unknown (Case [id number] COMPLETE) CT (CAP) CHEST W CONTRAST (C T Detailed) CPT:23578 Contrast Media : Non-ionic Iodinated Reason for Study: NSCLC in remission. Follicula r lymphoma. Re-staging. (Case [id number] COMPLETE) CT (CAP) ABDOMEN/PELVIS W CO NTRAS(CT Detailed) CPT:40002 Contrast Media : Non-ionic Iodinated Clinical History: IS NOT under investigation for COVID-19 or is COVID-19 negative 75yo with PMH NSCLC s/p treatment and follicula r lymphoma s/p treatment. Re-staging. Responsible provider helen acosta and phone number to notify for critical findings if other than user placing the order and pager listed below: User placing orders pager: [phone] LAST 3: Collection DT Specimen Test Name [...] 16, 2021 Date Verified: MAY 16, 2021 Thoracic Surgeon E-Sig:/ES/MIGUELITO BRANDON MD Report: Exam: CT chest, [...] with reconstitution of the right internal and plan coordinator al iliac vessels via collaterals. No abdominal [...] lobectomy. 4. Left-sided colonic diverticulosis without ac pamunkey diverticulitis. 5. Additional findings in the chest, abdomen, a nd pelvis as described in the body of the report. Primary Interpreting Staff: MIGUELITO BRANDON MD, RADIOLOGIST (Thoracic Surgeon) /BJB Encounter Notes: All associated encounter notes This section contains the clinical notes associated to the Encounter. 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 Prior Ziopatch monitoring showed <1% Dawit b burden, but average heart rates 140s in AFib. Anticoagulation was eventually initiate d and metoprolol for rate control, which was later swi tched to diltiazem due to concern for allergy due to itching (later turned out to be scabies). He returns to clinic today for routine EP f/u, a ccompanied by his . He reports rare AFib symptoms and when he has them they are brief - less than 5 minutes usually. He denies current dyspnea on ex ertion, chest pain/pressure, presyncope, syncope, dizziness/LH, orthopnea, PN D, or LE edema. He denies any bleeding concerns. PAST MEDICAL HISTORY Active problems - Computerized Problem List is [...] Obstructive sleep apnea of adult 14. Rash -----PRIOR CARDIAC TESTING----- -Echo (07/07/20): Interpretation Summary A complete two-dimensional transthoracic echocar diogram (93353) was performed with contrast (Q9957). The left ventricular systolic function is low no rmal. The visually estimated ejection fraction is 50-5 5%. The right ventricular systolic function is margarita l. Trivial pericardial effusion, not hemodynamicall y significant. Inferior vena cava size is small with ne ar respirophasic collapse. Finding may indicate relative hypovolemia -Zio Patch Monitor (August 2020): Zio Monitor Interpretation Ref'd by: Dr Liam Mejia Ref'd for: AFib and bradycardia Worn 7 days 3 hours, 08/10-08/17/20 Findings: Min HR 58bpm Avg HR 76bpm Max HR in sinus 114bpm Max HR overall 189bpm There were 6 patient trigger ed events and three diary entires. These correlated with atrial fibrillation wit h rapid ventricular response up to 179bpm as well as with sinus rhythm and atrial and ventricular ect opy. PACs were occasional 2%. There were rare atrial couplets and triplets. PVCs were rare <1%. There was rare ventricular b igeminy and trigeminy. There was atrial fibrillation for <1% overall bu rden. The longest AF episode lasted 32 min 28 seconds. Th e rate in AF ranged from 79-189bpm with average rate in AF of 142bpm. Summary: Atrial fibrillation with rapid ventricu lar response associated with patient symptoms. -Latest EKG (05/20/21): sinus rhythm 85 bpm ALLERGIES Patient has answered NKA FACILITY ALLERGY/ADR -------- No Remote Allergy/ADR Data available for this Community [facility] No Known Allergies MEDICATIONS Active and Recently Outpatient Medicatio ns (excluding Supplies): Active Outpatient Medications Status 1) ALBUTEROL [...] LOWER ABDOMEN TOPICALLY TWICE A DAY 2) HYDROXYZINE HCL 10MG TAB TAKE ONE TABLET BY M OUTH AT BEDTIME FOR ITCHING Active Non-VA Medications Status 1) Non-VA CHOLECALCIF 25MCG (D3-1,000UNIT) TAB 5 0MCG ACTIVE MOUTH EVERY DAY 2) Non-VA MAGNESIUM OXIDE TAB 400MG MOUTH EVERY DAY ACTIVE 3) Non-VA MULTIVITAMIN CAP/TAB 1 TABLET MOUTH EV ALEKSANDRA DAY ACTIVE 17 Total Medications No Active Remote Medications for this patient LABS SODIUM 141 (01/19/21) POTASSIUM 4.4 (01/19/21) MAGNESIUM 1.8 (01/19/21) UREA NITROGEN 19 (01/19/21) CREATININE 1.2 (01/19/21) GLUCOSE 97 (01/19/21) WBC 6.68 (01/19/21) HGB 11.6 L (01/19/21) PLT 251 (01/19/21) Collection DT Specimen Test Name Result Units Re f Range 11/23/2020 09:15 PLASMA TSH 1.77 uIU/mL 0.35 - 4 .94 07/07/2020 10:09 PLASMA TSH 0.70 uIU/mL 0.35 - 4 .94 Collection DT Specimen Test Name Result Units Re f Range 01/19/2021 08:45 PLASMA BILIRUBIN, TOTAL 0.5 mg/ dL 0.2 - 1.2 01/19/2021 08:45 PLASMA ALKALINE PHOSPHAT 76 U/L 40 - 150 01/19/2021 08:45 PLASMA AST/SGOT 18 U/L Ref: <=3 4 01/19/2021 08:45 PLASMA ALT/SGPT 22 U/L Ref: <=5 5 VITALS Temp: 97 F [36.1 C] (05/20/2021 08:20) Pulse:86 (05/20/2021 08:20) BP: 115/72 (05/20/2021 08:20) Resp: 16 (05/20/2021 08:20) Weight: 191.4 lb [87.0 kg] (05/20/2021 08:20) Pain: 0 (05/20/2021 08:20) O2 Sat: 97% (05/20/2021 08:20) BMI: 29.2 EXAM GA: very pleasant, well-appearing, NAD; LUNGS: CTAB, no crackles, wheezes, or rhonchi CV: RRR; no murmurs, rubs, or gallops; no JVD EXT: no cyanosis, clubbing, or edema ASSESSMENT/PLAN 1. Symptomatic paroxysmal atrial fibrillation wi th RVR: -Low burden on Ziopatch AF < 1%, rates w ere elevated when in AFib on Ziopatch. -On rate control strategy with diltiazem 180 mg daily -CHADSVASC score is 1 for age but will be 2 when he turns 76 in August 2021 on apixaban with no bleeding concerns -We did discuss further AFib treatments such as antiarrhythmic drugs/ablation if fails rate control, but he p refers to continue w/ rate control given low burden AFib -We discussed risk factor modification for AFib including weight management, regular exercise, moderation of alcohol intake, control of blood pressure and treatment of any underlying SELIN. Follow up: 1 year or sooner as needed. I spent a total of 45 minutes between preparat ion, review of testing, discussion with patient and documentation of enc edward /shalonda/ KHANH SANDERS PA-C PHYSICIAN CLIENT DEVELOPMENT MANAGER Signed: 05/21/2021 07:15 May 20, 2021 08:23 INTERNAL MEDICINE OUTPATIENT NOTE: Klarissa STEPHENSON [facility] LOCAL TITLE: MEDICINE CLINIC NURSING NOTE STANDARD TITLE: INTERNAL MEDICINE OUTPATIENT NOT E DATE OF NOTE: MAY 20, 2021@08:23 ENTRY DATE: MAY 20, 2021@08:23:45 AUTHOR: ADRIÁN STEPHENSON EXP COSIGNER: URGENCY: STATUS: COMPLETED TYPE OF VISIT: Appointment Check In Type of appointment: In-person appointment REASON FOR VISIT: Cardiac f/u ALLERGIES: Patient has answered NKA VITAL SIGNS: Blood Pressure: 115/72 (05/20/2021 08:20) Pulse: 86 (05/20/2021 08:20) Respiration: 16 (05/20/2021 08:20) Temperature: 97 F [36.1 C] (05/20/2021 08:20) Weight: 191.4 lb [87.0 kg] (05/20/2021 08:20) Height: 68 in [172.7 cm] (11/12/2020 10:17) BMI: 29.2 O2 Sat: 97% (05/20/2021 08:20) Pain: 0 (05/20/2021 08:20) PAIN SCREEN: Patient is not having significant pain that the y wish to discuss with their provider today. MEDICATION Over the Counter/Herbal Medications: The patient states that they take some outside medications and/or herbals. /shalonda/ ADRIÁN STEPHENSON LPN, LPN Signed: 05/20/2021 08:24
--- OUTSIDE RECORDS SUMMARY | 2021-11-18 09:15 | XMS_ITS | Encounter Summary ---
:1945 Author Organization [facility] Address [address] [place] [address] Support Name Relationship Address Phone SILKE LOCKWOOD Unavailable [id number] [address] SILKE LOCKWOOD Unavailable [id number] [address] Insurance Providers: All historical and current Section [...] Victor [place] M[place] Jun 10, [id number] [facility] (WNR) ADVANTAGE (WNR) 2019 8 [id number] [phone] ,ANDER Bennett [place] Jun 10, [id number] [facility] [facility] (WNR) 2018 3 [id number] [phone] ,ANDER Bennett Selected Encounter This section includes the information on record at [place] for the Encounter. Date/Time Encounter Type Encounter Reason Provider Source Description May 20, 2021 DRAW BLOOD OFF ONCOLOGY/TUMOR ICD-10-CM Z45.2 SHYANNE CONNER 10:30 AM VENOUS DEVICE Encounter for adjustment and management of VAD with Provider Comments: Encounter for adjustment and management of VAD IHE Encounter Template Text not used by [facility] Assessments - Encounter Diagnoses This section includes the primary and secondary diagnoses documented for the Encounter. Date/Time Primary/Secondary Diagnosis Name Provider Source Diagnosis May 20, 2021 PRIMARY Encounter for ARTEMIO CONNER V A 09:33 AM adjustment and HCS management of VAD Plan of Treatment: Future Appointments (+ 6 months) and Future Tests (+/- 45 days) The Plan of Treatment section includes future care activities for the patient [facility] This section includes future appointments and future orders which are active, pending orscheduled.Future Appointments This section includes appointments that were scheduled to occur 6 months from the date of the Encounter, up to a maximum of 20 appointments. The data comes from all [place] treatment [facility]. Appointment Date/Time Appointment Type Appointment Facili ty Name May 24, 2021 03:00 PM AMBULATORY - SURGERY [facility] May 26, 2021 03:30 PM AMBULATORY - MEDICINE [facility] Jun 10, 2021 09:30 AM AMBULATORY - NONE [facility] Jun 10, 2021 10:00 AM AMBULATORY - NONE [facility] Jun 10, 2021 01:00 PM AMBULATORY - PSYCHIATRY [facility] Jun 23, 2021 09:00 AM AMBULATORY - SURGERY [facility] Jun 29, 2021 10:30 AM AMBULATORY - MEDICINE [facility] July 13, 2021 10:15 AM AMBULATORY - MEDICINE [facility] July 18, 2021 07:00 AM AMBULATORY - NONE [facility] Aug 22, 2021 10:28 AM AMBULATORY - MEDICINE [facility] Sep 15, 2021 09:00 AM AMBULATORY - MEDICINE [facility] Sep 15, 2021 09:30 AM AMBULATORY - MEDICINE [facility] Sep 15, 2021 10:00 AM AMBULATORY - NONE [facility] Oct 03, 2021 01:39 PM AMBULATORY - NONE [facility] Oct 03, 2021 01:42 PM AMBULATORY - NONE [facility] Oct 04, 2021 07:51 PM AMBULATORY - NONE [facility] Oct 14, 2021 10:30 AM AMBULATORY - MEDICINE [facility] Oct 25, 2021 12:27 PM AMBULATORY - NONE [facility] Oct 27, 2021 08:30 AM AMBULATORY - MEDICINE [facility] Oct 27, 2021 09:00 AM AMBULATORY - NONE [facility] Active, Pending, and Scheduled [...] the Encounter. The data comes from all [place] treatment [facility]. Test Date/Time Test Type Test Details Facility Name May 23, 2021 12:00 AM Laboratory - CBC & DIFF BLOOD ONCO SP [place] [facility] Chemistry Order ONCE May 23, 2021 12:00 AM Laboratory - COMPREHENSIVE METABOLIC [facility] Chemistry Order PANEL+MG PLASMA ONCO SP Jun 01, 2021 12:00 AM Laboratory - PSA SERUM SP [place] [facility] Chemistry Order Jun 01, 2021 12:00 AM Laboratory - CBC BLOOD SP [place] [facility] Chemistry Order Jun 01, 2021 12:00 AM Laboratory - ELECTROLYTES/ANION GAP [place] [facility] Chemistry Order PLASMA SP Jun 01, 2021 12:00 AM Laboratory - [facility]COSE [facility] Chemistry Order Jun 01, 2021 12:00 AM Laboratory - HEMOGLOBIN A1C BLOOD SP [place] [facility] Chemistry Order Jun 01, 2021 12:00 AM Laboratory - AST/[facility]OT [facility] Chemistry Order Jun 01, 2021 12:00 AM Laboratory - ALT/SGPT [facility] Chemistry Order Jun 01, 2021 12:00 AM Laboratory - CREATININE(INCLUDES [place] [facility] Chemistry Order EGFR) PLASMA SP Jun 01, 2021 12:00 AM Laboratory - LIPID PANEL,NON-FASTING [facility] Chemistry Order PLASMA SP Jun 01, 2021 12:00 AM Laboratory - TSH W/REFLEX TO FREE T4 [facility] Chemistry Order PLASMA SP Lab Results: +/- 30 days of the encounter This section includes the Chemistry and Hematology Lab Results on record with [place] for the patient. Radiology Reports and Pathology Reports are provided separately, in subsequent sections.Lab Results This section contains the Chemistry/Hematology Results that were resulted 30 days before or 30 daysafter the date of the Encounter. Date/Time Source Result Type Result - Unit Interpretation Reference Range Comment May 20, 2021 09:35 AM [facility] UREA NITROGEN Specim en Type: PLASMA No comment enter ed. Ordering Provid er: SHELLY GUERRERO Report Released Date/Time: Jan 24, 2021 10:32 AM Reporting Lab: [facility] [address] [place] [facility] [address] Performing Lab: [facility] [address] UREA NITROGEN 19 8-26 May 20, 2021 09:35 AM [facility] EXTRA MINT TUBE Specim en Type: PLASMA No comment enter ed. Ordering Provid er: SHELLY GUERRERO Report Released Date/Time: May 20, 2021 09:50 AM Reporting Lab: [facility] [address] [facility] [address] Performing Lab: [facility] [address] [facility] [address] EXTRA MINT TUBE RECEIVED May 20, 2021 [facility] CREATININE(INCLUDES EGFR) Sp ecimen Type: PLASMA 09:35 AM No comment enter ed. Ordering Provid er: SHELLY GUERRERO Report Released Date/Time: Jan 24, 2021 10:32 AM Reporting Lab: [facility] [address] [facility] [address] Performing Lab: [facility] [address] [facility] [address] CREATININE 1.2 0.7-1.2 CREAT EGFR(CKD-EPI) 63 >60 May 16, 2021 10:33 AM [facility] POC CREATININE Specim en Type: BLOOD No comment enter ed. Ordering Provid er: LIAM MEJIA Report Released Date/Time: May 16, 2021 10:35 AM Reporting Lab: [facility] [address] [facility] [address] Performing Lab: [facility] [address] [facility] [address] POC CREATININE 1.4 0.6-1.3 Vital Signs: All taken on the encounter date This section contains inpatient and outpatient Vital Signs collected on the date of the Encounter. Date/Time Temperature Pulse Blood Respiratory SP02 Pain Height Weight Arslan dy Source Pressure Rate Mass Index May 20 F 86 115/72 16 /min 97 % 0 191.4 29 [place] 2021 08:20 /min mm[Hg] lb IS [facility] Social History: Smoking Status (Most current) and Tobacco Use (All prior to encounter date) This section includes the most current, and the historical, smoking and tobacco-related health factors from the SD facility where the Encounter took place.Current Smoking Status This section includes the most current smoking, or tobacco-related health factor, from the [place] facility where the Encounter took place. Date/Time Current Smoking Status Comment Facility Jul 05, 2020 06:42 PM VA-TOBACCO FORMER USER [facility] Tobacco Use History This section includes a history of the smoking, or tobacco- related health factors, that were collected on or before the date of the Encounter. The data comes from the [place] facility where the Encounter took place. Date/Time Smoking Status/Tobacco Use Comment Facil ity Jan 09, 2018 02:01 PM VA-TOBACCO FORMER USER [facility] Jan 09, 2018 02:01 PM SD-TOBACCO QUIT 5 TO < 15 YRS [facility] Apr 16, 2017 10:17 AM FORMER TOBACCO USER 7Y OR GREATER [facility] Jun 09, 2016 10:03 AM FORMER TOBACCO USER 7Y OR GREATER [facility] May 06, 2015 08:19 AM FORMER TOBACCO USER 7Y OR GREATER [facility] Advance Directives: All historical and current Section Date Range: From patient's date of to the date document was created. This section includes ALL of a patient's completed or amended [place] Advance and Rescinded Directives. The entries below indicate that a directive exists for the patient, but an actual copy is not included with this document. The data comes from all [facility]. Date Advance Directives Provider Source July 24, 2021 ADVANCE DIRECTIVE PAPA LEWIS [facility] July 24, 2021 ADVANCE DIRECTIVE [...] the Encounter. The data comes from all [place] treatment facilities. Date/Time Radiology Report Provider Source Jun 10, 2021 09:50 AM US LOWER EXTREMITY ARTERY (BILATERAL) (P): JOHN SALEEM [facility] ANDER LOCKWOOD [id number] -[birth year], [birth year] 8 M Exm Date: JUN 10, 2021@09:50 Req Phys: LIAM MEJIA Loc: [facility] PACT PEAR L 4E (Req'g Loc) Img Loc: Ultrasound Imaging Service: Unknown (Case [id number] COMPLETE) US LOWER EXTREMITY ARTERIES BILAT(US Detailed) CPT:68960 Reason for Study: as below Clinical History: IS NOT under investigation for COVID-19 or is COVID-19 negative leg cramps at night and with walking, assess fo r PAD Responsible provider name and phone number to n otify for critical findings if other than user placing the order a nd pager listed below: User placing orders pager: [phone] rona mejia LAST CREATININE 1.2 (05/20/21) Report Status: Verified Date Reported: JUN 10, 2021 Date Verified: JUN 10, 2021 Floorleader E-Sig:/ES/JOHN SALEEM MD Report: Duplex Ultrasound of the Bilateral Lower Extrem ity Arteries History: Leg cramps at night and with walking, assess for PAD. Technique: Arterial duplex examination performe d using B-mode, color flow and spectral Doppler assessment. Comparison: CT CAP 05/16/2021 Findings: Peak systolic velocities were measured as follo ws: Right lower extremity: ACCOUNT SUPPORT ANALYST prox: 23 cm/sec ACCOUNT SUPPORT ANALYST mid: 143 cm/sec ACCOUNT SUPPORT ANALYST dis terence: 75 cm/sec PFA: 94 cm/sec SFA prox: 111 cm/sec SFA mid: 74 cm/sec SFA distal: 70 cm/sec Popliteal prox: 60 cm/sec Pop liteal mid: 41 cm/sec Popliteal distal: 46 cm/sec ASHU prox calf: 25 cm/sec Common trunk: 32 cm/se c SANDWICH WRAPPER ankle: 26 cm/sec ASHU ankle: 31 cm/sec Waveforms are monophasic throughout. Collateral vessels visualized at the mid common femoral artery. Left lower extremity: ACCOUNT SUPPORT ANALYST prox: 139 cm/sec ACCOUNT SUPPORT ANALYST mid: 129 cm/sec ACCOUNT SUPPORT ANALYST di stal: 126 cm/sec PFA: 146 cm/sec SFA prox: 156 cm/sec SFA mid: 1 19 cm/sec SFA distal: 75 cm/sec Popliteal prox: 54 cm/sec Pop liteal mid: 49 cm/sec Popliteal distal: 61 cm/sec ASHU prox calf: 33 cm/sec Common trunk: 39 cm/se c SANDWICH WRAPPER ankle: 51 cm/sec ASHU ankle: 33 cm/sec [...] HERE. Lower Extremity Arterial Duplex Interpretation Guidelines ([place] arteries, bypass grafts, iliac, femoral, poplit eal [...] of the occlusion. Reconstitution is recognized by anabaptism of color in the [place] with [...] Primary Interpreting Staff: JOHN SALEEM MD, RADIOLOGIST (Floorleader) Primary Interpreting Resident: MARIAH PUTNAM DO, CAR LOADER /hs Jun 10, 2021 09:24 AM SEGMENTALS/SYED: JOHN SALEEM [facility] ANDER LOCKWOOD [id number] -[birth year] 8 M Exm Date: JUN 10, 2021@09:24 Req Phys: LIAM MEJIA Loc: [facility] PACT PEAR L 4E (Req'g Loc) Img Loc: VASCULAR LAB PROCEDURES Service: Unknown (Case [id number] COMPLETE) SEGMENTALS/SYED (VAS Detaile d) CPT:79560 Reason for Study: as below Clinical History: [...] listed below: User placing orders pager: [phone] rona mejia LAST CREATININE 1.2 (05/20/21) Report Status: Verified Date Reported: JUN 10, 2021 Date Verified: JUN 10, 2021 Floorleader E-Sig:/ES/JOHN SALEEM MD Report: Bilateral Lower Extremity [...] Primary Interpreting Staff: JOHN SALEEM MD, RADIOLOGIST (Floorleader) Primary Interpreting Resident: MARIAH PUTNAM DO, CAR LOADER /[facility] May 16, 2021 10:[address] (CAP) CHEST/ABD/PELVIS (P): MIGUELITO BRANDON [facility] ANDER LOCKWOOD [id number] -[birth year] 8 M Exm Date: MAY 16, 2021@10:39 Req Phys: SHELLY GUERRERO Loc: [facility] HEM ONC [place] 3V (Req' Img Loc: CT IMAGING Service: Unknown (Case [id number] COMPLETE) CT (CAP) CHEST W CONTRAST (C T Detailed) CPT:30798 Contrast Media : Non-ionic Iodinated Reason for Study: NSCLC in remission. Follicula r lymphoma. Re-staging. (Case [id number] COMPLETE) CT (CAP) ABDOMEN/PELVIS W CO NTRAS(CT Detailed) CPT:06436 Contrast Media : Non-ionic Iodinated Clinical History: IS NOT under investigation for COVID-19 or is COVID-19 negative 75yo with PMH NSCLC s/p treatment and follicula r lymphoma s/p treatment. Re-staging. Responsible provider nam e and phone number to notify for critical findings if other than user placing the order and pager listed below: User placing orders pager: [phone] LAST 3: Collection DT Specimen Test Name [...] 16, 2021 Date Verified: MAY 16, 2021 Floorleader E-Sig:/ES/MIGUELITO BRANDON MD Report: Exam: CT chest, [...] with reconstitution of the right internal and fruit peeler al iliac vessels via collaterals. No abdominal [...] lobectomy. 4. Left-sided colonic diverticulosis without ac [place] diverticulitis. 5. Additional findings in the chest, abdomen, a nd pelvis as described in the body of the report. Primary Interpreting Staff: MIGUELITO BRANDON MD, RADIOLOGIST (Floorleader) /BJB Encounter Notes: All associated encounter notes This section contains the clinical notes associated to the Encounter. Date/Time Encounter Note(s) Provider Source May 20, 2021 09:31 AM HEMATOLOGY AND ONCOLOGY NURSING OUTPAT IENT NOTE: ARTEMIO CONNER [facility] LOCAL TITLE: HEME/ONC BLOOD DRAW CLINIC NURSING NOTE STANDARD TITLE: HEMATOLOGY AND ONCOLOGY NURSING OUTPATIENT NOTE DATE OF NOTE: MAY 20, 2021@09:31 ENTRY DATE: MAY 20, 2021@09:31:58 AUTHOR: ARTEMIO CONNER EXP COSIGNER: URGENCY: STATUS: COMPLETED Date of Service:May Procedure: blood collection through venous acces s [...] own provider. /shalonda/ ARTEMIO CONNER LPN Signed: 05/20/2021 09:33
--- OUTSIDE RECORDS SUMMARY | 2021-11-18 09:15 | XMS_ITS | Encounter Summary ---
:1945 Author Organization [facility] rs Address [address] [place] [id number] Support Name Relationship Address Phone SILKE LOCKWOOD Unavailable [id number] [place] [address] SILKE LOCKWOOD Unavailable [id number] [place] [address] Insurance Providers: All historical and current Section [...] Victor [place] M[place] Jun 10, [id number] ATIENT [facility] (WNR) ADVANTAGE (WNR) 2019 8 [id number] [phone] ,ANDER Bennett [place] Jun 10, [id number] ATIENT [facility] (WNR) ADVANTAGE (WNR) 2018 3 [id number] [phone] ,ANDER Bennett Selected Encounter This section includes the information on record at [place] for the Encounter. Date/Time Encounter Type Encounter Reason Provider Source Description May 16, 2021 OFFICE O/P EST ONCOLOGY/TUMOR ICD-10-CM Z45.2 JONATAN SIFUENTES 09:30 AM SF 10-19 MIN Encounter for adjustment and management of VAD with Provider Comments: Encounter for adjustment and management of VAD IHE Encounter Template Text not used by [facility] Assessments - Encounter Diagnoses This section includes the primary and secondary diagnoses documented for the Encounter. Date/Time Primary/Secondary Diagnosis Name Provider Source Diagnosis May 16, 2021 PRIMARY Encounter for JODY SIFUENTES [facility] 12:33 PM adjustment and HCS management of VAD Plan of Treatment: Future Appointments (+ 6 months) and Future Tests (+/- 45 days) The Plan of Treatment section includes future care activities for the patient from all [facility]. This section includes future appointments and future orders which are active, pending orscheduled.Future Appointments This section includes appointments that were scheduled to occur 6 months from the date of the Encounter, up to a maximum of 20 appointments. The data comes from all [place] treatment facilities. Appointment Date/Time Appointment Type Appointment Facili ty Name May 20, 2021 08:15 AM AMBULATORY - MEDICINE [facility] May 20, 2021 08:30 AM AMBULATORY - MEDICINE [facility] May 20, 2021 10:30 AM AMBULATORY - MEDICINE [facility] May 24, 2021 03:00 PM AMBULATORY - SURGERY [facility] May 26, 2021 03:30 PM AMBULATORY - MEDICINE [facility] Jun 10, 2021 09:30 AM AMBULATORY - NONE [facility] Jun 10, 2021 10:00 AM AMBULATORY - NONE [facility] Jun 10, 2021 01:00 PM AMBULATORY - PSYCHIATRY [facility] Jun 23, 2021 09:00 AM AMBULATORY - SURGERY [facility] Jun 29, 2021 10:30 AM AMBULATORY - MEDICINE [facility] July 13, 2021 10:15 AM AMBULATORY - MEDICINE [facility] July 18, 2021 07:00 AM AMBULATORY - NONE [facility] Aug 22, 2021 10:28 AM AMBULATORY - MEDICINE [facility] Sep 15, 2021 09:00 AM AMBULATORY - MEDICINE [facility] Sep 15, 2021 09:30 AM AMBULATORY - MEDICINE [facility] Sep 15, 2021 10:00 AM AMBULATORY - NONE [facility] Oct 03, 2021 01:39 PM AMBULATORY - NONE [facility] Oct 03, 2021 01:42 PM AMBULATORY - NONE [facility] Oct 04, 2021 07:51 PM AMBULATORY - NONE [facility] Oct 14, 2021 10:30 AM AMBULATORY - MEDICINE [facility] Active, Pending, and Scheduled Orders This section includes a listing of several types of active, pending, and scheduled orders, including clinic medications orders, diagnostic test orders, procedure orders and consult orders; where the start date of the order is 45 days before the date of the Encounter or 45 days after the date of the Encounter. The data comes from all [place] treatment facilities. Test Date/Time Test Type Test Details Facility Name May 23, 2021 12:00 AM Laboratory - CBC & DIFF BLOOD ONCO SP [place] [facility] Chemistry Order ONCE May 23, 2021 12:00 AM Laboratory - COMPREHENSIVE METABOLIC [place] [facility] Chemistry Order PANEL+MG PLASMA ONCO SP Jun 01, 2021 12:00 AM Laboratory - CBC [facility]LOOD [facility] Chemistry Order Jun 01, 2021 12:00 AM Laboratory - PSA SERUM [place] [facility] Chemistry Order Jun 01, 2021 12:00 AM Laboratory - CREATININE(INCLUDES [place] [facility] Chemistry Order EGFR) PLASMA SP Jun 01, 2021 12:00 AM Laboratory - ELECTROLYTES/ANION GAP [place] [facility] Chemistry Order PLASMA SP Jun 01, 2021 12:00 AM Laboratory - GLUCOSE PLASMA SP [facility] Chemistry Order Jun 01, 2021 12:00 AM Laboratory - HEMOGLOBIN A1C BLOOD SP [facility] Chemistry Order Jun 01, 2021 12:00 AM Laboratory - AST/SGOT PLASMA SP [facility] Chemistry Order Jun 01, 2021 12:00 AM Laboratory - LIPID PANEL,NON-FASTING [facility] Chemistry Order PLASMA SP Jun 01, 2021 12:00 AM Laboratory - ALT/SGPT PLASMA SP [facility] Chemistry Order Jun 01, 2021 12:00 AM Laboratory - TSH W/REFLEX TO FREE T4 [facility] Chemistry Order PLASMA SP Lab Results: +/- 30 days of the encounter This section includes the Chemistry and Hematology Lab Results on record with MS for the patient. Radiology Reports and Pathology Reports are provided separately, in subsequent sections.Lab Results This section contains the Chemistry/Hematology Results that were resulted 30 days before or 30 daysafter the date of the Encounter. Date/Time Source Result Type Result - Unit Interpretation Reference Range Comment May 20, 2021 09:35 AM [facility] EXTRA MINT TUBE Specim en Type: PLASMA No comment enter ed. Ordering Provid er: SHELLY GUERRERO Report Released Date/Time: May 20, 2021 09:50 AM Reporting Lab: [facility] [address] Performing Lab: [facility] [address] [facility] [address] EXTRA MINT TUBE RECEIVED May 20, 2021 [facility] CREATININE(INCLUDES EGFR) Sp ecimen Type: PLASMA 09:35 AM No comment enter ed. Ordering Provid er: SHELLY GUERRERO Report Released Date/Time: Jan 24, 2021 10:32 AM Reporting Lab: [facility] [address] [facility] [address] Performing Lab: [facility] [address] CREATININE 1.2 0.7-1.2 CREAT EGFR(CKD-EPI) 63 >60 May 20, 2021 09:35 AM [facility] UREA NITROGEN Specim en Type: PLASMA No comment enter ed. Ordering Provid er: SHELLY GUERRERO Report Released Date/Time: Jan 24, 2021 10:32 AM Reporting Lab: [facility] [address] [facility] [address] Performing Lab: [facility] [address] UREA NITROGEN 19 8-26 May 16, 2021 10:33 AM [facility] POC CREATININE Specim en Type: BLOOD No comment enter ed. Ordering Provid er: LIAM MEJIA Report Released Date/Time: May 16, 2021 10:35 AM Reporting Lab: [facility] [address] [facility] [address] Performing Lab: [facility] [address] [address] POC CREATININE 1.4 0.6-1.3 Social History: Smoking Status (Most current) and Tobacco Use (All prior to encounter date) This section includes the most current, and the historical, smoking and tobacco-related health factors from the [place] facility where the Encounter took place.Current Smoking Status This section includes the most current smoking, or tobacco-related health factor, from the [place] facility where the Encounter took place. Date/Time Current Smoking Status Comment Facility Jul 05, 2020 06:42 PM VA-TOBACCO FORMER USER [facility] Tobacco Use History This section includes a history of the smoking, or tobacco- related health factors, that were collected on or before the date of the Encounter. The data comes from the [place] facility where the Encounter took place. Date/Time Smoking Status/Tobacco Use Comment [facility] Jan 09, 2018 02:01 PM VA-TOBACCO FORMER USER MIN [facility] Jan 09, 2018 02:01 PM VA-TOBACCO QUIT 5 TO < 15 YRS [facility] Apr 16, 2017 10:17 AM FORMER TOBACCO USER 7Y OR GREATER [facility] Jun 09, 2016 10:03 AM FORMER TOBACCO USER 7Y OR GREATER [facility] May 06, 2015 08:19 AM FORMER TOBACCO USER 7Y OR GREATER [facility] Advance Directives: All historical and current Section Date Range: From patient's date of to the date document was created. This section includes ALL of a patient's completed or amended [place] Advance and Rescinded Directives. The entries below indicate that a directive exists for the patient, but an actual copy is not included with this document. The data comes from all [place] facilities. Date Advance Directives Provider Source July 24, 2021 ADVANCE DIRECTIVE PAPA LEWIS [facility] July 24, 2021 ADVANCE DIRECTIVE DISCUSSION PAPA LEWIS [facility] Radiology Reports: +/- 30 days of [...] the Encounter. The data comes from all [place] treatment facilities. Date/Time Radiology Report Provider Source Jun 10, 2021 09:50 AM US LOWER EXTREMITY ARTERY (BILATERAL) (P): JOHN SALEEM [facility] ANDER LOCKWOOD [id number] -[birth year], [birth year] 8 M Exm Date: JUN 10, 2021@09:50 Req Phys: LIAM MEJIA Pat Loc: [facility] PACT PEAR L 4E (Req'g Loc) Img Loc: Ultrasound Imaging Service: Unknown (Case [id number] COMPLETE) US LOWER EXTREMITY ARTERIES BILAT(US Detailed) CPT:88383 Reason for Study: as below Clinical History: IS NOT under investigation for COVID-19 or is COVID-19 negative leg cramps at night and with walking, assess fo r PAD Responsible provider name and phone number to n otify for critical findings if other than user placing the order a nd pager listed below: User placing orders pager: [phone] rona son LAST CREATININE 1.2 (05/20/21) Report Status: Verified Date Reported: JUN 10, 2021 Date Verified: JUN 10, 2021 Foundry Engineer E-Sig:/ES/JOHN SALEEM MD Report: Duplex Ultrasound of the Bilateral Lower Extrem ity Arteries History: Leg cramps at night and with walking, assess for PAD. Technique: Arterial duplex examination performe d using B-mode, color flow and spectral Doppler assessment. Comparison: CT CAP 05/16/2021 Findings: Peak systolic velocities were measured as follo ws: Right lower extremity: YARD ATTENDANT prox: 23 cm/sec YARD ATTENDANT mid: 143 cm/sec YARD ATTENDANT dis terence: 75 cm/sec PFA: 94 cm/sec SFA prox: 111 cm/sec SFA mid: 74 cm/sec SFA distal: 70 cm/sec Popliteal prox: 60 cm/sec Pop liteal mid: 41 cm/sec Popliteal distal: 46 cm/sec ASHU prox calf: 25 cm/sec Common trunk: 32 cm/se c CROP FARMERS ankle: 26 cm/sec ASHU ankle: 31 cm/sec Waveforms are monophasic throughout. Collateral vessels visualized at the mid common femoral artery. Left lower extremity: YARD ATTENDANT prox: 139 cm/sec YARD ATTENDANT mid: 129 cm/sec YARD ATTENDANT di stal: 126 cm/sec PFA: 146 cm/sec SFA prox: 156 cm/sec SFA mid: 1 19 cm/sec SFA distal: 75 cm/sec Popliteal prox: 54 cm/sec Pop liteal mid: 49 cm/sec Popliteal distal: 61 cm/sec ASHU prox calf: 33 cm/sec Common trunk: 39 cm/se c CROP FARMERS ankle: 51 cm/sec ASHU ankle: 33 cm/sec [...] HERE. Lower Extremity Arterial Duplex Interpretation Guidelines ([place] arteries, bypass grafts, iliac, femoral, poplit eal [...] of the occlusion. Reconstitution is recognized by confucianist of color in the ar michael with [...] Primary Interpreting Staff: JOHN SALEEM MD, RADIOLOGIST (Foundry Engineer) Primary Interpreting Resident: MARIAH PUTNAM DO, DOUBLE NEEDLE STITCHER /hsh Jun 10, 2021 09:24 AM SEGMENTALS/SYED: JOHN SALEEM [facility] ANDER LOCKWOOD [id number] [birth year] 8 M Exm Date: JUN 10, 2021@09:24 Req Phys: LIAM MEJIA Loc: [facility] PACT PEAR L 4E (Req'g Loc) Img Loc: VASCULAR LAB PROCEDURES Service: Unknown (Case [id number] COMPLETE) SEGMENTALS/SYED (VAS Detaile d) CPT:75676 Reason for Study: as below Clinical History: [...] pager listed below: User placing orders pager: [phone] rona mejia LAST CREATININE 1.2 (05/20/21) Report Status: Verified Date Reported: JUN 10, 2021 Date Verified: JUN 10, 2021 Foundry Engineer E-Sig:/ES/JOHN SALEEM MD Report: Bilateral Lower Extremity [...] Primary Interpreting Staff: JOHN SALEEM MD, RADIOLOGIST (Foundry Engineer) Primary Interpreting Resident: MARIAH PUTNAM DO, DOUBLE NEEDLE STITCHER /[facility] May 16, 2021 10:[address] (CAP) CHEST/ABD/PELVIS (P): MIGUELITO BRANDON [facility] ANDER LOCKWOOD [id number] -[birth year], [birth year] 8 M [facility] Date: MAY 16, 2021@10:39 Req Phys: SHELLY GUERRERO Pat Loc: [facility] HEM ONC [place] 3V (Req' Img Loc: CT IMAGING Service: Unknown (Case [id number] COMPLETE) CT (CAP) CHEST W CONTRAST (C T Detailed) CPT:00588 Contrast Media : Non-ionic Iodinated Reason for Study: NSCLC in remission. Follicula r lymphoma. Re-staging. (Case [id number] COMPLETE) CT (CAP) ABDOMEN/PELVIS W CO NTRAS(CT Detailed) CPT:12617 Contrast Media : Non-ionic Iodinated Clinical History: [place] IS NOT under investigation for COVID-19 or is COVID-19 negative 75yo with PMH NSCLC s/p treatment and follicula r lymphoma s/p treatment. Re-staging. Responsible provider helen acosta and phone number to notify for critical findings if other than user placing the order and pager listed below: User placing orders pager: [phone] LAST 3: Collection DT Specimen Test Name [...] 16, 2021 Date Verified: MAY 16, 2021 Foundry Engineer E-Sig:/ES/MIGUELITO BRANDON MD Report: Exam: CT chest, [...] with reconstitution of the right internal and special delivery worker al iliac vessels via collaterals. No abdominal [...] lobectomy. 4. Left-sided colonic diverticulosis without ac cahto diverticulitis. 5. Additional findings in the chest, abdomen, a nd pelvis as described in the body of the report. Primary Interpreting Staff: MIGUELITO BRANDON MD, RADIOLOGIST (Foundry Engineer) /BJB Encounter Notes: All associated encounter notes This section contains the clinical notes associated to the Encounter. Date/Time Encounter Note(s) Provider Source May 16, 2021 12:31 PM HEMATOLOGY AND ONCOLOGY NURSING OUTPAT IENT NOTE: JODY SIFUENTES [facility] LOCAL TITLE: HEME/ONC BLOOD DRAW CLINIC NURSING NOTE STANDARD TITLE: HEMATOLOGY AND ONCOLOGY NURSING OUTPATIENT NOTE DATE OF NOTE: MAY 16, 2021@12:31 ENTRY DATE: MAY 16, 2021@12:32:02 AUTHOR: JODY SIFUENTES EXP COSIGNER: URGENCY: STATUS: COMPLETED Date of Service:May Diagnosis: Procedure: blood collection through venous acces s device Venous Access Device Care: Type: Portacath 3/4 20g Power Mcdermott Needle Blood return: Yes Site: normal Labs drawn: No Flushes: normal saline, heparin 500 units Status: remains accessed Discharge to: Other: Radiology Patient was notified they need their por t flushed in 30-60 days and to make an appt with the [facility] or at their own provider. /shalonda/ JODY SIFUENTES LPN LICENSED PRACTICAL NURSE Signed: 05/16/2021 12:33
--- OUTSIDE RECORDS SUMMARY | 2021-11-18 09:15 | XMS_ITS | Encounter Summary ---
:1945 Author Organization [facility] Address [address] [place] [id number] Support Name Relationship Address Phone SILKE LOCKWOOD Unavailable [id number] [address] SILKE LOCKWOOD Unavailable [id number] [address] Insurance Providers: All historical and current Section [...] Victor [place]ARE M[place] Jun 10, [id number] [facility] (WNR) ADVANTAGE (WNR) 2020 8 [id number] [phone] ,ANDER Bennett [place] MEDICARE M[place] Jun 10, [id number] [facility] (WNR) ADVANTAGE (WNR) 2018 3 [id number] [phone] ,ANDER Bennett Selected Encounter This section includes the information on record at [place] for the Encounter. Date/Time Encounter Type Encounter Reason Provider Source Description May 20, 2021 Outpatient TELEPHONE/MEDICI ICD-10-CM C77.1 CHACHO GOMEZ 10:30 AM Encounter NE Secondary and unsp malignant neoplasm of intrathorac nodes with Provider Comments: Secondary malignant neoplasm of intrathoracic lymph nodes (SCT [id number]) IHE Encounter Template Text not used by [place] Assessments - Encounter Diagnoses This section includes the primary and secondary diagnoses documented for the Encounter. 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 This section includes future appointments and future orders which are active, pending orscheduled.Future Appointments This section includes appointments that were scheduled to occur 6 months from the date of the Encounter, up to a maximum of 20 appointments. The data comes from all [place] treatment facilities. Appointment Date/Time Appointment Type Appointment Facili ty Name May 24, 2021 03:00 PM AMBULATORY - SURGERY [facility] May 26, 2021 03:30 PM AMBULATORY - MEDICINE [facility] Jun 10, 2021 09:30 AM AMBULATORY - NONE [facility] Jun 10, 2021 10:00 AM AMBULATORY - NONE [facility] Jun 10, 2021 01:00 PM AMBULATORY - PSYCHIATRY [facility] Jun 23, 2021 09:00 AM AMBULATORY - SURGERY [facility] Jun 29, 2021 10:30 AM AMBULATORY - MEDICINE [facility] July 13, 2021 10:15 AM AMBULATORY - MEDICINE [facility] July 18, 2021 07:00 AM AMBULATORY - NONE [facility] Aug 22, 2021 10:28 AM AMBULATORY - MEDICINE [facility] Sep 15, 2021 09:00 AM AMBULATORY - MEDICINE [facility] Sep 15, 2021 09:30 AM AMBULATORY - MEDICINE [facility] Sep 15, 2021 10:00 AM AMBULATORY - NONE [facility] Oct 03, 2021 01:39 PM AMBULATORY - NONE [facility] Oct 03, 2021 01:42 PM AMBULATORY - NONE [facility] Oct 04, 2021 07:51 PM AMBULATORY - NONE [facility] Oct 14, 2021 10:30 AM AMBULATORY - MEDICINE [facility] Oct 25, 2021 12:27 PM AMBULATORY - NONE [facility] Oct 27, 2021 08:30 AM AMBULATORY - MEDICINE [facility] Oct 27, 2021 09:00 AM AMBULATORY - NONE [facility] [...] the Encounter. The data comes from all [place] treatment facilities. Test Date/Time Test Type Test Details Facility Name May 23, 2021 12:00 AM Laboratory - CBC & DIFF BLOOD [facility] Chemistry Order ONCE May 23, 2021 12:00 AM Laboratory - COMPREHENSIVE METABOLIC [facility] Chemistry Order PANEL+MG PLASMA ONCO SP Jun 01, 2021 12:00 AM Laboratory - [facility] Chemistry Order Jun 01, 2021 12:00 AM Laboratory - CBC BLOOD SP ONCE [facility] Chemistry Order Jun 01, 2021 12:00 AM Laboratory - HEMOGLOBIN A1C BLOOD SP [facility] Chemistry Order Jun 01, 2021 12:00 AM Laboratory - [facility]ATININE[facility] Chemistry Order EGFR) PLASMA SP Jun 01, 2021 12:00 AM Laboratory - ELECTROLYTES/ANION GAP [facility] Chemistry Order PLASMA SP Jun 01, 2021 12:00 AM Laboratory - GLUCOSE PLASMA SP [facility] Chemistry Order Jun 01, 2021 12:00 AM Laboratory - AST/SGOT PLASMA SP [facility] Chemistry Order Jun 01, 2021 12:00 AM Laboratory - ALT/SGPT PLASMA SP [facility] Chemistry Order Jun 01, 2021 12:00 AM Laboratory - LIPID PANEL,NON-FASTING [facility] Chemistry Order PLASMA SP Jun 01, 2021 12:00 AM Laboratory - TSH W/REFLEX TO FREE T4 [facility] Chemistry Order PLASMA SP Lab Results: +/- 30 days of the encounter This section includes the Chemistry and Hematology Lab Results on record with [place] for the patient. Radiology Reports and Pathology Reports are provided separately, in subsequent sections.Lab Results This section contains the Chemistry/Hematology Results that were resulted 30 days before or 30 daysafter the date of the Encounter. Date/Time Source Result Type Result - Unit Interpretation Reference Range Comment May 20, 2021 09:35 AM [facility] UREA NITROGEN Specim en Type: PLASMA No comment enter ed. Ordering Provid er: SHELLY GUERRERO Report Released Date/Time: Jan 24, 2021 10:32 AM Reporting Lab: [facility] [address] [facility] [address] Performing Lab: [facility] [address] [facility] [address] UREA NITROGEN 19 8-26 May 20, 2021 [facility] CREATININE(INCLUDES EGFR) Sp ecimen Type: PLASMA 09:35 AM No comment enter ed. Ordering Provid er: SHELLY GUERRERO Report Released Date/Time: Jan 24, 2021 10:32 AM Reporting Lab: [facility] [address] [facility] [address] Performing Lab: [facility] [address] CREATININE 1.2 0.7-1.2 CREAT EGFR(CKD-EPI) 63 >60 May 20, 2021 09:35 AM [facility] EXTRA MINT TUBE Specim en Type: PLASMA No comment enter ed. Ordering Provid er: SHELLY GUERRERO Report Released Date/Time: May 20, 2021 09:50 AM Reporting Lab: [facility] [address] [facility] [address] Performing Lab: [facility] [address] [facility] [address] EXTRA MINT TUBE RECEIVED May 16, 2021 10:33 AM [facility] POC CREATININE Specim en Type: BLOOD No comment enter ed. Ordering Provid er: LIAM MEJIA Report Released Date/Time: May 16, 2021 10:35 AM Reporting Lab: [facility] [address] [facility] [address] Performing Lab: [facility] [address] [facility] [address] POC CREATININE 1.4 0.6-1.3 Vital Signs: All taken on the encounter date This section contains inpatient and outpatient Vital Signs collected on the date of the Encounter. Date/Time Temperature Pulse Blood Respiratory SP02 Pain Height Weight Arslan dy Source Pressure Rate Mass Index May 20 F 86 115/72 16 /min 97 % 0 191.4 29 [place] 2021 08:20 /min mm[Hg] lb [place]IS [place] AM [facility] Social History: Smoking Status (Most current) and Tobacco Use (All prior to encounter date) This section includes the most current, and the historical, smoking and tobacco-related health factors from the [place] facility where the Encounter took place.Current Smoking Status This section includes the most current smoking, or tobacco-related health factor, from the [place] facility where the Encounter took place. Date/Time Current Smoking Status Comment Facility Jul 05, 2020 06:42 PM VA-TOBACCO FORMER USER [facility] Tobacco Use History This section includes a history of the smoking, or tobacco- related health factors, that were collected on or before the date of the Encounter. The data comes from the [place] facility where the Encounter took place. Date/Time Smoking Status/Tobacco Use Comment [facility] it Jan 09, 2018 02:01 PM VA-TOBACCO FORMER USER [facility] Jan 09, 2018 02:01 PM [place]-TOBACCO QUIT 5 TO < 15 YRS [facility] Apr 16, 2017 10:17 AM FORMER TOBACCO USER 7Y OR GREATER [facility] Jun 09, 2016 10:03 AM FORMER TOBACCO USER 7Y OR GREATER [facility] May 06, 2015 08:19 AM FORMER TOBACCO USER 7Y OR GREATER [facility] Advance Directives: All historical and current Section Date Range: From patient's date of to the date document was created. This section includes ALL of a patient's completed or amended [place] Advance and Rescinded Directives. The entries below indicate that a directive exists for the patient, but an actual copy is not included with this document. The data comes from all [facility]. Date Advance Directives Provider Source July 24, 2021 ADVANCE DIRECTIVE PAPA LEWIS [facility] July 24, 2021 ADVANCE DIRECTIVE DISCUSSION PAPA LEWIS [facility] Radiology Reports: +/- 30 days of [...] the Encounter. The data comes from all [place] treatment facilities. Date/Time Radiology Report Provider Source Jun 10, 2021 09:50 AM US LOWER EXTREMITY ARTERY (BILATERAL) (P): JOHN SALEEM [facility] ANDER LOCKWOOD [id number] -RONNELL [birth year], [birth year] 8 M Exm Date: JUN 10, 2021@09:50 Req Phys: LIAM MEJIA Rigo Pat Loc: [facility] PACT PEAR L 4E (Req'g Loc) Img Loc: Ultrasound Imaging Service: Unknown (Case [id number] COMPLETE) US LOWER EXTREMITY ARTERIES BILAT(US Detailed) CPT:88914 Reason for Study: as below Clinical History: [place] IS NOT under investigation for COVID-19 or is COVID-19 negative leg cramps at night and with walking, assess fo r PAD Responsible provider name and phone number to n otify for critical findings if other than user placing the order a nd pager listed below: User placing orders pager: [phone] rona son LAST CREATININE 1.2 (05/20/21) Report Status: Verified Date Reported: JUN 10, 2021 Date Verified: JUN 10, 2021 Audit Senior Associate E-Sig:/ES/JOHN SALEEM MD Report: Duplex Ultrasound of the Bilateral Lower Extrem ity Arteries History: Leg cramps at night and with walking, assess for PAD. Technique: Arterial duplex examination performe d using B-mode, color flow and spectral Doppler assessment. Comparison: CT CAP 05/16/2021 Findings: Peak systolic velocities were measured as follo ws: Right lower extremity: STOREKEEPER STEWARD prox: 23 cm/sec STOREKEEPER STEWARD mid: 143 cm/sec STOREKEEPER STEWARD dis terence: 75 cm/sec PFA: 94 cm/sec SFA prox: 111 cm/sec SFA mid: 74 cm/sec SFA distal: 70 cm/sec Popliteal prox: 60 cm/sec Pop liteal mid: 41 cm/sec Popliteal distal: 46 cm/sec ASHU prox calf: 25 cm/sec Common trunk: 32 cm/se c EVISCERATOR ankle: 26 cm/sec ASHU ankle: 31 cm/sec Waveforms are monophasic throughout. Collateral vessels visualized at the mid common femoral artery. Left lower extremity: STOREKEEPER STEWARD prox: 139 cm/sec STOREKEEPER STEWARD mid: 129 cm/sec STOREKEEPER STEWARD di stal: 126 cm/sec PFA: 146 cm/sec SFA prox: 156 cm/sec SFA mid: 1 19 cm/sec SFA distal: 75 cm/sec Popliteal prox: 54 cm/sec Pop liteal mid: 49 cm/sec Popliteal distal: 61 cm/sec ASHU prox calf: 33 cm/sec Common trunk: 39 cm/se c EVISCERATOR ankle: 51 cm/sec ASHU ankle: 33 cm/sec [...] HERE. Lower Extremity Arterial Duplex Interpretation Guidelines ([place] arteries, bypass grafts, iliac, femoral, poplit eal [...] of the occlusion. Reconstitution is recognized by catholic of color in the ar michael with [...] Primary Interpreting Staff: JOHN SALEEM MD, RADIOLOGIST (Audit Senior Associate) Primary Interpreting Resident: MARIAH PUTNAM DO, TILE HELPER /hs Jun 10, 2021 09:24 AM SEGMENTALS/SYED: JOHN SALEEM [facility] ANDER LOCKWOOD [id number] -[birth year], [birth year] 8 M Exm Date: JUN 10, 2021@09:24 Req Phys: LIAM MEJIA Pat Loc: [facility] PACT PEAR L 4E (Req'g Loc) Img Loc: VASCULAR LAB PROCEDURES Service: Unknown (Case [id number] COMPLETE) SEGMENTALS/SYED (VAS Detaile d) CPT:80144 Reason for Study: as below Clinical History: [...] pager listed below: User placing orders pager: [phone] rona son LAST CREATININE 1.2 (05/20/21) Report Status: Verified Date Reported: JUN 10, 2021 Date Verified: JUN 10, 2021 Audit Senior Associate E-Sig:/ES/JOHN SALEEM MD Report: Bilateral Lower Extremity [...] Primary Interpreting Staff: JOHN SALEEM MD, RADIOLOGIST (Audit Senior Associate) Primary Interpreting Resident: MARIAH PUTNAM DO, TILE HELPER /[facility] May 16, 2021 10:[address] (CAP) CHEST/ABD/PELVIS (P): MIGUELITO BRANDON [facility] ANDER LOCKWOOD [id number] -[birth year], [birth year] 8 M Exm Date: MAY 16, 2021@10:39 Req Phys: SHELLY GUERRERO Loc: [facility] HEM ONC [place] 3V (Req' Img Loc: CT IMAGING Service: Unknown (Case [id number] COMPLETE) CT (CAP) CHEST W CONTRAST (C T Detailed) CPT:76597 Contrast Media : Non-ionic Iodinated Reason for Study: NSCLC in remission. Follicula r lymphoma. Re-staging. (Case [id number] COMPLETE) CT (CAP) ABDOMEN/PELVIS W CO NTRAS(CT Detailed) CPT:61626 Contrast Media : Non-ionic Iodinated Clinical History: IS NOT under investigation for COVID-19 or is COVID-19 negative 75yo with PMH NSCLC s/p treatment and follicula r lymphoma s/p treatment. Re-staging. Responsible provider helen acosta and phone number to notify for critical findings if other than user placing the order and pager listed below: User placing orders pager: [phone] LAST 3: Collection DT Specimen Test Name [...] 16, 2021 Date Verified: MAY 16, 2021 Audit Senior Associate E-Sig:/ES/MIGUELITO BRANDON MD Report: Exam: CT chest, [...] with reconstitution of the right internal and sheet metal supervisor al iliac vessels via collaterals. No abdominal [...] lobectomy. 4. Left-sided colonic diverticulosis without ac [place] diverticulitis. 5. Additional findings in the chest, abdomen, a nd pelvis as described in the body of the report. Primary Interpreting Staff: MIGUELITO BRANDON MD, RADIOLOGIST (Audit Senior Associate) /NHUNGB
--- OUTSIDE RECORDS SUMMARY | 2021-11-18 09:15 | XMS_ITS | Encounter Summary ---
:1945 Author Organization [facility] Address [address] [place] [id number] Support Name Relationship Address Phone SILKE LOCKWOOD Unavailable [id number] [place] [id number] SILKE LOCKWOOD Unavailable [phone] [place] [address] Insurance Providers: All historical and current Section [...] [place] Jun 10, [id number] [facility] (WNR) 2020 8 [id number] [phone] ,ANDER Bennett [place] Jun 10, [id number] [address] P ATIENT [facility] (WNR) ADVANTAGE (WNR) 2018 3 [id number] [phone] ,ANDER Bennett Selected Encounter This section includes the information on record at MD for the Encounter. Date/Time Encounter Type Encounter Description Reason Provider Source May 13, 2021 10:07 Outpatient Encounter PRIMARY CARE/MEDICINE AM [facility] Encounter Template Text not used by MD Plan of Treatment: Future Appointments (+ 6 months) and Future Tests (+/- 45 days) The Plan of Treatment section includes future care activities for the patient from all MD treatmentfacilities. This section includes future appointments and future orders which are active, pending orscheduled.Future Appointments This section includes appointments that were scheduled to occur 6 months from the date of the Encounter, up to a maximum of 20 appointments. The data comes from all MD treatment facilities. Appointment Date/Time Appointment Type Appointment Facili ty Name May 16, 2021 09:30 AM AMBULATORY - MEDICINE [facility] May 16, 2021 10:00 AM AMBULATORY - NONE [facility] May 20, 2021 08:15 AM AMBULATORY - MEDICINE [facility] May 20, 2021 08:30 AM AMBULATORY - MEDICINE [facility] May 20, 2021 10:30 AM AMBULATORY - MEDICINE [facility] May 24, 2021 03:00 PM AMBULATORY - SURGERY [facility] May 26, 2021 03:30 PM AMBULATORY - MEDICINE [facility] Jun 10, 2021 09:30 AM AMBULATORY - NONE [facility] Jun 10, 2021 10:00 AM AMBULATORY - NONE [facility] Jun 10, 2021 01:00 PM AMBULATORY - PSYCHIATRY [facility] Jun 23, 2021 09:00 AM AMBULATORY - SURGERY [facility] Jun 29, 2021 10:30 AM AMBULATORY - MEDICINE [facility] July 13, 2021 10:15 AM AMBULATORY - MEDICINE [facility] July 18, 2021 07:00 AM AMBULATORY - NONE [facility] Aug 22, 2021 10:28 AM AMBULATORY - MEDICINE [facility] Sep 15, 2021 09:00 AM AMBULATORY - MEDICINE [facility] Sep 15, 2021 09:30 AM AMBULATORY - MEDICINE [facility] Sep 15, 2021 10:00 AM AMBULATORY - NONE [facility] Oct 03, 2021 01:39 PM AMBULATORY - NONE [facility] Oct 03, 2021 01:42 PM AMBULATORY - NONE [facility] Active, Pending, and Scheduled Orders This section includes a listing of several types of active, pending, and scheduled orders, including clinic medications orders, diagnostic test orders, procedure orders and consult orders; where the start date of the order is 45 days before the date of the Encounter or 45 days after the date of the Encounter. The data comes from all MD treatment facilities. Test Date/Time Test Type Test Details Facility Name May 23, 2021 12:00 AM Laboratory - COMPREHENSIVE METABOLIC [facility] Chemistry Order PANEL+MG PLASMA ONCO SP May 23, 2021 12:00 AM Laboratory - CBC & DIFF BLOOD ONCO SP [facility] Chemistry Order ONCE Jun 01, 2021 12:00 AM Laboratory - PSA [facility] Order Jun 01, 2021 12:00 AM Laboratory - CBC BLOOD SP ONCE [facility] Chemistry Order Jun 01, 2021 12:00 AM Laboratory - CREATININE(INCLUDES [place] [facility] Chemistry Order EGFR) PLASMA SP Jun 01, 2021 12:00 AM Laboratory - ELECTROLYTES/ANION GAP [facility] Chemistry Order PLASMA SP Jun 01, 2021 12:00 AM Laboratory - GLUCOSE PLASMA SP [facility] Chemistry Order Jun 01, 2021 12:00 AM Laboratory - HEMOGLOBIN A1C [facility]LOOD SP [facility] Order Jun 01, 2021 12:00 AM Laboratory - AST/[facility]OT [facility] Chemistry Order Jun 01, 2021 12:00 AM Laboratory - LIPID PANEL,NON-FASTING [facility] Chemistry Order PLASMA SP Jun 01, 2021 12:00 AM Laboratory - ALT/SGPT PLASMA SP [facility] Chemistry Order Jun 01, 2021 12:00 AM Laboratory - TSH W/REFLEX TO FREE T4 [facility] Chemistry Order PLASMA SP Lab Results: +/- 30 days of the encounter This section includes the Chemistry and Hematology Lab Results on record with MD for the patient. Radiology Reports and Pathology Reports are provided separately, in subsequent sections.Lab Results This section contains the Chemistry/Hematology Results that were resulted 30 days before or 30 daysafter the date of the Encounter. Date/Time Source Result Type Result - Unit Interpretation Reference Range Comment May 20, 2021 [facility] CREATININE(INCLUDES EGFR) Sp ecimen Type: PLASMA 09:35 AM No comment enter ed. Ordering Provid er: SHELLY GUERRERO Report Released Date/Time: Jan 24, 2021 10:32 AM Reporting Lab: [facility] [address] [facility] [address] Performing Lab: [facility] [address] [facility] [address] CREATININE 1.2 0.7-1.2 CREAT EGFR(CKD-EPI) 63 >60 May 20, 2021 09:35 AM [facility] EXTRA MINT TUBE Specim en Type: PLASMA No comment enter ed. Ordering Provid er: SHELLY GUERRERO Report Released Date/Time: May 20, 2021 09:50 AM Reporting Lab: [facility] [address] [facility] [address] Performing Lab: [facility] [address] [facility] [address] EXTRA MINT TUBE RECEIVED May 20, 2021 09:35 AM [facility] UREA NITROGEN Specim en Type: PLASMA No comment enter ed. Ordering Provid er: SHELLY GUERRERO Report Released Date/Time: Jan 24, 2021 10:32 AM Reporting Lab: [facility] [address] [facility] [address] Performing Lab: [facility] [address] [facility] [address] UREA NITROGEN 19 8-26 May 16, 2021 10:33 AM [facility] POC CREATININE Specim en Type: BLOOD No comment enter ed. Ordering Provid er: LIAM MEJIA Report Released Date/Time: May 16, 2021 10:35 AM Reporting Lab: [facility] [address] [facility] [address] Performing Lab: [facility] [address] [facility] [address] POC CREATININE 1.4 0.6-1.3 Social History: Smoking Status (Most current) and Tobacco Use (All prior to encounter date) This section includes the most current, and the historical, smoking and tobacco-related health factors from the MD facility where the Encounter took place.Current Smoking Status This section includes the most current smoking, or tobacco-related health factor, from the MD facility where the Encounter took place. Date/Time Current Smoking Status Comment Facility Jul 05, 2020 06:42 PM [place]-TOBACCO FORMER USER [facility] Tobacco Use History This section includes a history of the smoking, or tobacco- related health factors, that were collected on or before the date of the Encounter. The data comes from the MD facility where the Encounter took place. Date/Time Smoking Status/Tobacco Use Comment [facility] Jan 09, 2018 02:01 PM VA-TOBACCO FORMER USER [facility] Jan 09, 2018 02:01 PM MD-TOBACCO QUIT 5 TO < 15 YRS [facility] Apr 16, 2017 10:17 AM FORMER TOBACCO USER 7Y OR GREATER [facility] Jun 09, 2016 10:03 AM FORMER TOBACCO USER 7Y OR GREATER [facility] May 06, 2015 08:19 AM FORMER TOBACCO USER 7Y OR GREATER [facility] Advance Directives: All historical and current Section Date Range: From patient's date of to the date document was created. This section includes ALL of a patient's completed or amended MD Advance and Rescinded Directives. The entries below indicate that a directive exists for the patient, but an actual copy is not included with this document. The data comes from all MD facilities. Date Advance Directives Provider Source July 24, 2021 ADVANCE DIRECTIVE PAPA LEWIS [facility] July 24, 2021 ADVANCE DIRECTIVE DISCUSSION PAPA LEWIS [facility] Radiology Reports: +/- 30 days of the [...] the Encounter. The data comes from all MD treatment facilities. Date/Time Radiology Report Provider Source Jun 10, 2021 09:50 AM US LOWER EXTREMITY ARTERY (BILATERAL) (P): JOHN SALEEM [facility] ANDER LOCKWOOD RED [id number] [birth year], [birth year] 8 M Exm Date: JUN 10, 2021@09:50 Req Phys: LIAM MEJIA Pat Loc: [facility] PACT PEAR L 4E (Req'g Loc) Img Loc: Ultrasound Imaging Service: Unknown (Case [id number] COMPLETE) US LOWER EXTREMITY ARTERIES BILAT(US Detailed) CPT:19227 Reason for Study: as below Clinical History: IS NOT under investigation for COVID-19 or is COVID-19 negative leg cramps at night and with walking, assess fo r PAD Responsible provider name and phone number to n otify for critical findings if other than user placing the order a nd pager listed below: User placing orders pager: [phone] rona son LAST CREATININE 1.2 (05/20/21) Report Status: Verified Date Reported: JUN 10, 2021 Date Verified: JUN 10, 2021 Pig Furnace Operator E-Sig:/ES/JOHN SALEEM MD Report: Duplex Ultrasound of the Bilateral Lower Extrem ity Arteries History: Leg cramps at night and with walking, assess for PAD. Technique: Arterial duplex examination performe d using B-mode, color flow and spectral Doppler assessment. Comparison: CT CAP 05/16/2021 Findings: Peak systolic velocities were measured as follo ws: Right lower extremity: DRESS MARKER prox: 23 cm/sec DRESS MARKER mid: 143 cm/sec DRESS MARKER dis terence: 75 cm/sec PFA: 94 cm/sec SFA prox: 111 cm/sec SFA mid: 74 cm/sec SFA distal: 70 cm/sec Popliteal prox: 60 cm/sec Pop liteal mid: 41 cm/sec Popliteal distal: 46 cm/sec ASHU prox calf: 25 cm/sec Common trunk: 32 cm/se c RADIOLOGY RECEPTIONIST ankle: 26 cm/sec ASHU ankle: 31 cm/sec Waveforms are monophasic throughout. Collateral vessels visualized at the mid common femoral artery. Left lower extremity: DRESS MARKER prox: 139 cm/sec DRESS MARKER mid: 129 cm/sec DRESS MARKER di stal: 126 cm/sec PFA: 146 cm/sec SFA prox: 156 cm/sec SFA mid: 1 19 cm/sec SFA distal: 75 cm/sec Popliteal prox: 54 cm/sec Pop liteal mid: 49 cm/sec Popliteal distal: 61 cm/sec ASHU prox calf: 33 cm/sec Common trunk: 39 cm/se c RADIOLOGY RECEPTIONIST ankle: 51 cm/sec ASHU ankle: 33 cm/sec [...] HERE. Lower Extremity Arterial Duplex Interpretation Guidelines (kotlik arteries, bypass grafts, iliac, femoral, poplit eal [...] of the occlusion. Reconstitution is recognized by zoroastrianism of color in the ar michael with [...] Primary Interpreting Staff: JOHN SALEEM MD, RADIOLOGIST (Pig Furnace Operator) Primary Interpreting Resident: MARIAH PUTNAM DO, DEPUTY COUNTY CLERK /hsh Jun 10, 2021 09:24 AM SEGMENTALS/SYED: JOHN SALEEM [facility] ANDER LOCKWOOD [id number] -[birth year], [birth year] 8 M Exm Date: JUN 10, 2021@09:24 Req Phys: LIAM MEJIA [facility] (Req'g Loc) Img Loc: VASCULAR LAB PROCEDURES Service: Unknown (Case [id number] COMPLETE) SEGMENTALS/SYED (VAS Detaile d) CPT:91836 Reason for Study: as below Clinical History: [...] pager listed below: User placing orders pager: [phone] rona son LAST CREATININE 1.2 (05/20/21) Report Status: Verified Date Reported: JUN 10, 2021 Date Verified: JUN 10, 2021 Pig Furnace Operator E-Sig:/ES/JOHN SALEEM MD Report: Bilateral Lower [...] Primary Interpreting Staff: JOHN SALEEM MD, RADIOLOGIST (Pig Furnace Operator) Primary Interpreting Resident: MARIAH PUTNAM DO, DEPUTY COUNTY CLERK /[facility] May 16, 2021 10:[address] (CAP) CHEST/ABD/PELVIS (P): MIGUELITO BRANDON [facility] ANDER LOCKWOOD [id number] -[birth year] 8 M Ex Date: MAY 16, 2021@10:39 Req Phys: SHELLY GUERRERO Pat Loc: [facility] HEM ONC LUIKART 3V (Req' Img Loc: CT IMAGING Service: Unknown (Case [id number] COMPLETE) CT (CAP) CHEST W CONTRAST (C T Detailed) CPT:97188 Contrast Media : Non-ionic Iodinated Reason for Study: NSCLC in remission. Follicula r lymphoma. Re-staging. (Case [id number] COMPLETE) CT (CAP) ABDOMEN/PELVIS W CO NTRAS(CT Detailed) CPT:58216 Contrast Media : Non-ionic Iodinated Clinical History: IS NOT under investigation for COVID-19 or is COVID-19 negative 75yo with PMH NSCLC s/p treatment and follicula r lymphoma s/p treatment. Re-staging. Responsible provider helen acosta and phone number to notify for critical findings if other than user placing the order and pager listed below: User placing orders pager: [phone] LAST 3: Collection DT Specimen Test Name [...] 16, 2021 Date Verified: MAY 16, 2021 Pig Furnace Operator E-Sig:/ES/MIGUELITO BRANDON MD Report: Exam: CT chest, [...] with reconstitution of the right internal and sales and service engineer al iliac vessels via collaterals. No abdominal [...] lobectomy. 4. Left-sided colonic diverticulosis without ac chinik diverticulitis. 5. Additional findings in the chest, abdomen, a nd pelvis as described in the body of the report. Primary Interpreting Staff: MIGUELITO BRANDON MD, RADIOLOGIST (Pig Furnace Operator) /B[facility] Encounter Notes: All associated encounter notes This section contains the clinical notes associated to the Encounter. Date/Time Encounter Note(s) Provider Source May 13, 2021 10:07 AM HOME HEALTH REFERRAL NOTE: AZEB MCINTYRE [facility] LOCAL TITLE: [facility] HOME HEALTH CARE STANDARD TITLE: HOME HEALTH REFERRAL NOTE DATE OF NOTE: MAY 13, 2021@10:07 ENTRY DATE: MAY 13, 2021@10:07:19 AUTHOR: AZEB MCINTYRE EXP COSIGNER: URGENCY: STATUS: COMPLETED HOME HEALTH CARE CERTIFICATION AND PLAN OF CARE SIGNED BY: Dr[facility] mejia.. [facility] [place] Certification period From: 05/12/21 To: 07/10/21 /shalonda/ AZEB MCINTYRE ADVANCED CARDROOM ATTENDANT Signed: 05/13/2021 10:08
--- OUTSIDE RECORDS SUMMARY | 2021-11-18 09:15 | XMS_ITS | Encounter Summary ---
:1945 Author Organization [facility] rs Address [address] [place] [address] Support Name Relationship Address Phone SILKE LOCKWOOD Unavailable [id number] [address] SILKE LOCKWOOD Unavailable [id number] [address] Insurance Providers: All historical and current Section [...] Victor [place] Jun 10, [id number] [facility] (WNR) ADVANTAGE (WNR) 2020 8 [id number] [phone] ,ANDER Bennett [place] Jun 10, [id number] [facility] (WNR) ADVANTAGE (WNR) 2018 3 [id number] [phone] ,ANDER Bennett Selected Encounter This section includes the information on record at DC for the Encounter. Date/Time Encounter Type Encounter Reason Provider Source Description May 20, 2021 ELECTROCARDIOGRAM EKG ICD-10-CM Z13.6 JORGE LUIS BROWN 08:15 AM COMPLETE Encounter for ZI screening for cardiovascular disorders with Provider Comments: Encounter for Screening for Cardiovascular Disorders IHE Encounter Template Text not used by DC Assessments - Encounter Diagnoses This section includes the primary and secondary diagnoses documented for the Encounter. Date/Time Primary/Secondary Diagnosis Name Provider Source Diagnosis May 20, 2021 PRIMARY Encounter for [facility] 08:22 AM screening for J [facility] cardiovascular disorders Plan of Treatment: Future Appointments (+ 6 months) and Future Tests (+/- 45 days) The Plan of Treatment section includes future care activities for the patient from [facility] This section includes future appointments and future orders which are active, pending orscheduled.Future Appointments This section includes appointments that were scheduled to occur 6 months from the date of the Encounter, up to a maximum of 20 appointments. The data comes from all DC treatment [facility]. Appointment Date/Time Appointment Type Appointment Facili ty Name May 24, 2021 03:00 PM AMBULATORY - SUR[facility]ERY [facility] May 26, 2021 03:30 PM AMBULATORY - MEDICINE [facility] Jun 10, 2021 09:30 AM AMBULATORY - NONE [facility] Jun 10, 2021 10:00 AM AMBULATORY - NONE [facility] Jun 10, 2021 01:00 PM AMBULATORY - PSYCHIATRY [facility] Jun 23, 2021 09:00 AM [facility] Jun 29, 2021 10:30 AM AMBULATORY - MEDICINE [facility] July 13, 2021 10:15 AM AMBULATORY - MEDICINE [facility] July 18, 2021 07:00 AM AMBULATORY - NONE [facility] Aug 22, 2021 10:28 AM AMBULATORY - MEDICINE [facility] Sep 15, 2021 09:00 AM AMBULATORY - MEDICINE [facility] Sep 15, 2021 09:30 AM AMBULATORY - MEDICINE [facility] Sep 15, 2021 10:00 AM AMBULATORY - NONE [facility] Oct 03, 2021 01:39 PM AMBULATORY - NONE [facility] Oct 03, 2021 01:42 PM AMBULATORY - NONE [facility] Oct 04, 2021 07:51 PM AMBULATORY - NONE [facility] Oct 14, 2021 10:30 AM AMBULATORY - MEDICINE [facility] Oct 25, 2021 12:27 PM AMBULATORY - NONE [facility] Oct 27, 2021 08:30 AM AMBULATORY - MEDICINE [facility] Oct 27, 2021 09:00 AM AMBULATORY - NONE [facility] Active, Pending, and Scheduled Orders This [...] The data comes from all [place] treatment [facility]. Test Date/Time Test Type Test Details Facility Name May 23, 2021 12:00 AM Laboratory - COMPREHENSIVE METABOLIC [facility] Chemistry Order PANEL+MG PLASMA ONCO SP May 23, 2021 12:00 AM Laboratory - CBC & DIFF BLOOD ONCO SP [place] [facility] Chemistry Order ONCE Jun 01, 2021 12:00 AM Laboratory - PSA SERUM SP JUANI S [facility] Chemistry Order Jun 01, 2021 12:00 AM Laboratory - CBC BLOOD SP ONCE ARIADNAO LIS [facility] Chemistry Order Jun 01, 2021 12:00 AM Laboratory - ELECTROLYTES/ANION GAP [place] [facility] Chemistry Order PLASMA SP Jun 01, 2021 12:00 AM Laboratory - CREATININE(INCLUDES SAMANTAA POLIS [facility] Chemistry Order EGFR) PLASMA SP Jun 01, 2021 12:00 AM Laboratory - [facility]UCOSE [facility] Chemistry Order Jun 01, 2021 12:00 AM Laboratory - HEMOGLOBIN A1C BLOOD SP [facility] Order Jun 01, 2021 12:00 AM Laboratory - AST/SGOT [facility] SP [facility] Order Jun 01, 2021 12:00 AM Laboratory - ALT/SGPT [facility] Chemistry Order Jun 01, 2021 12:00 AM Laboratory - LIPID PANEL,[facility]-FASTING [facility] Chemistry Order PLASMA SP Jun 01, 2021 12:00 AM Laboratory - TSH W/REFLEX TO FREE T4 [facility] Chemistry Order PLASMA SP Lab [...] Range Comment May 20, 2021 09:35 AM [facility] UREA NITROGEN Specim en Type: PLASMA No comment enter ed. Ordering Provid er: SHELLY GUERRERO Report Released Date/Time: Jan 24, 2021 10:32 AM Reporting Lab: [facility] [address] [facility] [address] Performing Lab: [facility] [address] [facility] [address] UREA NITROGEN 19 8-26 May 20, 2021 09:35 AM [facility] EXTRA MINT TUBE Specim en Type: PLASMA No comment enter ed. Ordering Provid er: SHELLY GUERRERO Report Released Date/Time: May 20, 2021 09:50 AM Reporting Lab: [facility] [address] [facility] [address] Performing Lab: [facility] [address] [facility] [address] EXTRA MINT TUBE RECEIVED May 20, 2021 [facility] CREATININE(INCLUDES EGFR) Sp ecimen Type: PLASMA 09:35 AM No comment enter ed. Ordering Provid er: SHELLY GUERRERO Report Released Date/Time: Jan 24, 2021 10:32 AM Reporting Lab: [facility] [address] [facility] [address] Performing Lab: [facility] [address] CREATININE 1.2 0.7-1.2 CREAT EGFR(CKD-EPI) 63 >60 May 16, 2021 10:33 AM [facility] POC CREATININE Specim en Type: BLOOD No comment enter ed. Ordering Provid er: LIAM MEJIA Report Released Date/Time: May 16, 2021 10:35 AM Reporting Lab: [facility] [address] [facility] [address] Performing Lab: [facility] [address] [facility] [address] POC CREATININE 1.4 0.6-1.3 Vital Signs: All taken on the encounter date This section contains inpatient and outpatient Vital Signs collected on the date of the Encounter. Date/Time Temperature Pulse Blood Respiratory SP02 Pain Height Weight Arslan dy Source Pressure Rate Mass Index May 20 F 86 115/72 16 /min 97 % 0 191.4 29 [place] 2021 08:20 /min mm[Hg] lb IS [facility] Social History: Smoking Status (Most [...] 2020 06:42 PM [place]-TOBACCO FORMER USER [place] [facility] Tobacco Use History This section includes a history of the smoking, or tobacco- related health factors, that were collected on or before the date of the Encounter. The data comes from the [place] facility where the Encounter took place. Date/Time Smoking Status/Tobacco Use Comment Facil ity Jan 09, 2018 02:01 PM VA-TOBACCO FORMER USER [facility] Jan 09, 2018 02:01 PM [place]-TOBACCO QUIT 5 TO < 15 YRS [facility] Apr 16, 2017 10:17 AM FORMER TOBACCO USER 7Y OR GREATER [facility] Jun 09, 2016 10:03 AM FORMER TOBACCO USER 7Y OR GREATER [facility] May 06, 2015 08:19 AM FORMER TOBACCO USER 7Y OR GREATER [facility] Advance Directives: All historical and current Section Date Range: From patient's date of to the date document was created. This section includes ALL of a patient's completed or amended [place] Advance and Rescinded Directives. The entries below indicate that a directive exists for the patient, but an actual copy is not included with this document. The data comes from all [facility]. Date Advance Directives Provider Source July 24, 2021 ADVANCE DIRECTIVE PAPA LEWIS [facility] July 24, 2021 ADVANCE DIRECTIVE DISCUSSION PAPA LEWIS [facility] Radiology Reports: [...] LOWER EXTREMITY ARTERY (BILATERAL) (P): JOHN SALEEM [facility] ANDER LOCKWOOD [id number] -[birth year], [birth year] 8 M Exm Date: JUN 10, 2021@09:50 Req Phys: LIAM MEJIA Loc: [facility] PACT PEAR L 4E (Req'g Loc) Img Loc: Ultrasound Imaging Service: Unknown (Case [id number] COMPLETE) US LOWER EXTREMITY ARTERIES BILAT(US Detailed) CPT:25340 Reason for Study: as below Clinical History: IS NOT under investigation for COVID-19 or is COVID-19 negative leg cramps at night and with walking, assess fo r PAD Responsible provider name and phone number to n otify for critical findings if other than user placing the order a nd pager listed below: User placing orders pager: [phone] rona mejia LAST CREATININE 1.2 (05/20/21) Report Status: Verified Date Reported: JUN 10, 2021 Date Verified: JUN 10, 2021 Courtesy Bus Driver E-Sig:/ES/JOHN SALEEM MD Report: Duplex Ultrasound of the Bilateral Lower Extrem ity Arteries History: Leg cramps at night and with walking, assess for PAD. Technique: Arterial duplex examination performe d using B-mode, color flow and spectral Doppler assessment. Comparison: CT CAP 05/16/2021 Findings: Peak systolic velocities were measured as follo ws: Right lower extremity: MANAGER REHAB prox: 23 cm/sec MANAGER REHAB mid: 143 cm/sec MANAGER REHAB dis terence: 75 cm/sec PFA: 94 cm/sec SFA prox: 111 cm/sec SFA mid: 74 cm/sec SFA distal: 70 cm/sec Popliteal prox: 60 cm/sec Pop liteal mid: 41 cm/sec Popliteal distal: 46 cm/sec ASHU prox calf: 25 cm/sec Common trunk: 32 cm/se c LOGGING SPECIALIST ankle: 26 cm/sec ASHU ankle: 31 cm/sec Waveforms are monophasic throughout. Collateral vessels visualized at the mid common femoral artery. Left lower extremity: MANAGER REHAB prox: 139 cm/sec MANAGER REHAB mid: 129 cm/sec MANAGER REHAB di stal: 126 cm/sec PFA: 146 cm/sec SFA prox: 156 cm/sec SFA mid: 1 19 cm/sec SFA distal: 75 cm/sec Popliteal prox: 54 cm/sec Pop liteal mid: 49 cm/sec Popliteal distal: 61 cm/sec ASHU prox calf: 33 cm/sec Common trunk: 39 cm/se c LOGGING SPECIALIST ankle: 51 cm/sec ASHU ankle: 33 cm/sec [...] HERE. Lower Extremity Arterial Duplex Interpretation Guidelines (klamath arteries, bypass grafts, iliac, femoral, poplit eal [...] of the occlusion. Reconstitution is recognized by gnosticism of color in the ar michael with [...] Primary Interpreting Staff: JOHN SALEEM MD, RADIOLOGIST (Courtesy Bus Driver) Primary Interpreting Resident: MARIAH PUTNAM DO, SEED SERVICE ADVISOR /hs Jun 10, 2021 09:24 AM SEGMENTALS/SYED: JOHN SALEEM [facility] ANDER LOCKWOOD [id number] -[birth year], [birth year] 7 M Ex Date: JUN 10, 2021@09:24 Req Phys: LIAM MEJIA Loc: [facility] PACT PEAR L 4E (Req'g Loc) Img Loc: VASCULAR LAB PROCEDURES Service: Unknown (Case [id number] COMPLETE) SEGMENTALS/SYED (VAS Detaile d) CPT:94508 Reason for Study: as below Clinical History: Please note that this study requires a 30min apt. time. [place] IS NOT under investigation for COVID-19 or is COVID-19 negative leg cramps at night and with walking, assess fo r PAD, thanks Responsible provider name and phone number to n otify for critical findings if other than user placing the order a nd pager listed below: User placing orders pager: [phone] rona mejia LAST CREATININE 1.2 (05/20/21) Report Status: Verified Date Reported: JUN 10, 2021 Date Verified: JUN 10, 2021 Courtesy Bus Driver E-Sig:/ES/JOHN SALEEM MD Report: Bilateral Lower Extremity [...] Primary Interpreting Staff: JOHN SALEEM MD, RADIOLOGIST (Courtesy Bus Driver) Primary Interpreting Resident: MARIAH PUTNAM DO, SEED SERVICE ADVISOR /[facility] May 16, 2021 10:[address] (CAP) CHEST/ABD/PELVIS (P): MIGUELITO BRANDON [facility] ANDER LOCKWOOD [id number] -[birth year], [birth year] 8 M Ex Date: MAY 16, 2021@10:39 Req Phys: SHELLY GUERRERO Pat Loc: [facility] HEM ONC [place] 3V (Req' Img Loc: CT IMAGING Service: Unknown (Case [id number] COMPLETE) CT (CAP) CHEST W CONTRAST (C T Detailed) CPT:90380 Contrast Media : Non-ionic Iodinated Reason for Study: NSCLC in remission. Follicula r lymphoma. Re-staging. (Case [id number] COMPLETE) CT (CAP) ABDOMEN/PELVIS W CO NTRAS(CT Detailed) CPT:60735 Contrast Media : Non-ionic Iodinated Clinical History: [place] IS NOT under investigation for COVID-19 or is COVID-19 negative 75yo with PMH NSCLC s/p treatment and follicula r lymphoma s/p treatment. Re-staging. 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 No [...] Primary Interpreting Staff: MIGUELITO BRANDON MD, RADIOLOGIST (Courtesy Bus Driver) /[place]
--- OUTSIDE RECORDS SUMMARY | 2021-11-18 09:16 | XMS_ITS | Encounter Summary ---
:1945 Author Organization [facility] Address [address] [place] [address] Support Name Relationship Address Phone SILKE LOCKWOOD Unavailable [id number] [place] [phone] SILKE LOCKWOOD Unavailable [phone] [place] [phone] Insurance Providers: All historical and current Section [...] Victor [place] Jun 10, [id number] [facility] (WNR) ADVANTAGE (WNR) 2019 8 [id number] [phone] ,ANDER Bennett [place] Jun 10, [id number] P [facility] (WNR) ADVANTAGE (WNR) 2018 3 [id number] [phone] ,ANDER Bennett Selected Encounter This section includes the information on record at [place] for the Encounter. Date/Time Encounter Type Encounter Description Reason Provider Source May 05, 2021 12:30 Outpatient Encounter TELEPHONE TRIAGE PM IHE Encounter Template Text not used [...] 16, 2021 09:30 AM AMBULATORY - MEDICINE [facility] CS May 16, 2021 10:00 AM AMBULATORY - NONE [facility] May 20, 2021 08:15 AM AMBULATORY - MEDICINE [facility] CS May 20, 2021 08:30 AM AMBULATORY - MEDICINE [facility] May 20, 2021 10:30 AM AMBULATORY - MEDICINE [facility] CS May 24, 2021 03:00 PM AMBULATORY - SURGERY [facility] S May 26, 2021 03:30 PM AMBULATORY - MEDICINE [facility] CS Jun 10, 2021 09:30 AM AMBULATORY - NONE [facility] Jun 10, 2021 10:00 AM AMBULATORY - NONE [facility] Jun 10, 2021 01:00 PM AMBULATORY - PSYCHIATRY [facility] Jun 23, 2021 09:00 AM [facility] Jun 29, 2021 10:30 AM AMBULATORY - MEDICINE [facility] CS July 13, 2021 10:15 AM AMBULATORY - MEDICINE [facility] July 18, 2021 07:00 AM AMBULATORY - NONE [facility] Aug 22, 2021 10:28 AM AMBULATORY - MEDICINE [facility] Sep 15, 2021 09:00 AM AMBULATORY - MEDICINE [facility] Sep 15, 2021 09:30 AM AMBULATORY - MEDICINE [facility] Sep 15, 2021 10:00 AM AMBULATORY - NONE [facility] Oct 03, 2021 01:39 PM AMBULATORY - NONE [facility] Oct 03, 2021 01:42 PM AMBULATORY - NONE [facility] Active, Pending, and Scheduled Orders [...] data comes from all [place] treatment facilities. Test Date/Time Test Type Test Details Facility Name May 23, 2021 12:00 AM Laboratory - CBC & DIFF BLOOD ONCO SP [facility] Chemistry Order ONCE May 23, 2021 12:00 AM Laboratory - COMPREHENSIVE METABOLIC [place] [facility] Chemistry Order PANEL+MG PLASMA ONCO SP Jun 01, 2021 12:00 AM [facility] - [facility] Chemistry Order Jun 01, 2021 12:00 AM Laboratory - CBC BLOOD SP ONCE MIRNA GAMING [facility] Chemistry Order Jun 01, 2021 12:00 AM Laboratory - CREATININE(INCLUDES [place] POLIS [facility] Chemistry Order EGFR) PLASMA SP Jun 01, 2021 12:00 AM Laboratory - ELECTROLYTES/ANION GAP [place] [facility] Chemistry Order PLASMA SP Jun 01, 2021 12:00 AM Laboratory - GLUCOSE PLASMA SP ARIADNAO AMBERLY [facility] Chemistry Order Jun 01, 2021 12:00 AM Laboratory - AST/SGOT PLASMA SP ARIADNA OLIS [facility] Chemistry Order Jun 01, 2021 12:00 AM Laboratory - ALT/SGPT PLASMA SP ARIADNA PAL [facility] Chemistry Order Jun 01, 2021 12:00 AM Laboratory - HEMOGLOBIN A[facility]C BLOOD SP [facility] Chemistry Order Jun 01, 2021 12:00 AM Laboratory - TSH W/REFLEX TO FREE T4 [facility] Chemistry Order PLASMA SP Jun 01, 2021 12:00 AM Laboratory - LIPID PANEL,NON-FASTING [facility] Chemistry Order PLASMA SP Lab Results: [...] Range Comment May 20, 2021 09:35 AM [facility] EXTRA MINT TUBE Specim en Type: PLASMA No comment enter ed. Ordering Provid er: SHELLY GUERRERO Report Released Date/Time: May 20, 2021 09:50 AM Reporting Lab: [facility] [address] [facility] [address] Performing Lab: [facility] [address] [facility] [address] EXTRA MINT TUBE RECEIVED May 20, 2021 09:35 AM [facility] UREA NITROGEN Specim en Type: PLASMA No comment enter ed. Ordering Provid er: SHELLY GUERRERO Report Released Date/Time: Jan 24, 2021 10:32 AM Reporting Lab: [facility] [address] [facility] [address] Performing Lab: [facility] [address] [facility] [address] UREA NITROGEN 19 8-26 May 20, 2021 [facility] CREATININE(INCLUDES EGFR) Sp ecimen Type: PLASMA 09:35 AM No comment enter ed. Ordering Provid er: SHELLY GUERRERO Report Released Date/Time: Jan 24, 2021 10:32 AM Reporting Lab: [facility] [address] [facility] [address] Performing Lab: [facility] [address] [facility] [address] CREATININE 1.2 0.7-1.2 CREAT EGFR(CKD-EPI) 63 >60 May 16, 2021 10:33 AM [facility] POC CREATININE Specim en Type: BLOOD No comment enter ed. Ordering Provid er: LIAM MEJIA Report Released Date/Time: May 16, 2021 10:35 AM Reporting Lab: [facility] [address] [facility] [address] Performing Lab: [facility] ONE [facility] [address] POC CREATININE 1.4 0.6-1.3 Social History: Smoking [...] 2020 06:42 PM VA-TOBACCO FORMER USER [facility] Tobacco Use History This section includes a history of the smoking, or tobacco- related health factors, that were collected on or before the date of the Encounter. The data comes from the [place] facility where the Encounter took place. Date/Time Smoking Status/Tobacco Use Comment [facility] Jan 09, 2018 02:01 PM VA-TOBACCO FORMER USER [place] [facility] Jan 09, 2018 02:01 PM [place]-TOBACCO QUIT 5 TO < 15 YRS [facility] Apr 16, 2017 10:17 AM FORMER TOBACCO USER 7Y OR GREATER [facility] Jun 09, 2016 10:03 AM FORMER TOBACCO USER 7Y OR GREATER [facility] May 06, 2015 08:19 AM FORMER TOBACCO USER 7Y OR GREATER [facility] Advance Directives: All historical and current Section Date Range: From patient's date of to the date document was created. This section includes ALL of a patient's completed or amended [place] Advance and Rescinded Directives. The entries below indicate that a directive exists for the patient, but an actual copy is not included with this document. The data comes from all [place] facilities. Date Advance Directives Provider Source July 24, 2021 ADVANCE DIRECTIVE PAPA LEWIS [facility] July 24, 2021 ADVANCE DIRECTIVE DISCUSSION PAPA LEWIS [facility] Radiology Reports: +/- 30 days [...] treatment facilities. 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 (Case [id number] COMPLETE) CT (CAP) ABDOMEN/PELVIS W CO NTRAS(CT Detailed) CPT:96682 Contrast Media : Non-ionic Iodinated Clinical History: [place] IS NOT under investigation for COVID-19 or is COVID-19 negative 75yo with PMH NSCLC s/p treatment and follicula r lymphoma s/p treatment. Re-staging. Responsible provider nam e and phone number to notify for critical findings if other than user placing the order and pager listed below: User placing orders pager: [phone] LAST 3: Collection DT Specimen Test Name [...] 16, 2021 Date Verified: MAY 16, 2021 Tube Coater E-Sig:/ES/MIGUELITO BRANDON MD Report: Exam: CT chest, [...] with reconstitution of the right internal and consulting psychologist al iliac vessels via collaterals. No abdominal [...] Primary Interpreting Staff: MIGUELITO BRANDON MD, RADIOLOGIST (Tube Coater) /BJB Encounter Notes: All associated encounter notes This section contains the clinical notes associated to the Encounter. Date/Time Encounter Note(s) Provider Source May 05, 2021 12:30 PM REPORT OF CONTACT: IKER KRAUSE [facility] LOCAL TITLE: PATIENT CONTACT NOTE STANDARD TITLE: REPORT OF CONTACT DATE OF NOTE: MAY 05, 2021@12:30 ENTRY DATE: MAY 05, 2021@12:30:24 AUTHOR: IKER KRAUSE EXP COSIGNER: URGENCY: STATUS: COMPLETED PATIENT CONTACT NOTE Has ADDENDA Patient contact Name of [place]: MANDIEANDER WATSON Name/Relationship of Contact if other than Veter an: Imani, [facility] Date & Time of Contact: Apr@12:30 Type of Contact: Reason for Contact: Imani called the call jacob ter requesting a current meds list be faxed to . If you have questions, she can be reached at the above number. Thank you! /shalonda/ IKER FERNÁNDEZ 23 [facility] Call Center [facility] Signed: 05/05/2021 12:33 Receipt Acknowledged By: 05/05/2021 13:00 /es/ MARIA LUZ MANCERA RN RN 05/05/2021 ADDENDUM STATUS: COMPLETED faxed /shalonda/ MARIA LUZ MANCERA RN RN Signed: 05/05/2021 13:00
--- OUTSIDE RECORDS SUMMARY | 2021-11-18 09:16 | XMS_ITS | Encounter Summary ---
:1945 Author Organization [facility] Address [address] [place] [address] Support Name Relationship Address Phone SILKE LOCKWOOD Unavailable [id number] [place] [phone] SILKE LOCKWOOD Unavailable [id number] [place] [phone] Insurance Providers: All historical and current Section [...] Victor [place] Jun 10, [id number] [facility] (WNR) ADVANTAGE (WNR) 2019 8 [id number] [phone] ,ANDER Bennett [place] Jun 10, [id number] [facility] (WNR) ADVANTAGE (WNR) 2018 3 [id number] [phone] ,ANDER Bennett Selected Encounter This section includes the information on record at [place] for the Encounter. Date/Time Encounter Type Encounter Description Reason Provider Source May 05, 2021 08:53 Outpatient Encounter TELEPHONE TRIAGE AM IHE Encounter Template Text not used by [place] Plan of Treatment: Future Appointments (+ 6 months) and Future Tests (+/- 45 days) The Plan of Treatment section includes future care activities for the patient from all [place] treatmentfacilities. This section includes future appointments and future orders which are active, pending orscheduled.Future Appointments This section includes appointments that were scheduled to occur 6 months from the date of the Encounter, up to a maximum of 20 appointments. The data comes from all [place] treatment facilities. Appointment Date/Time Appointment Type Appointment Facili ty Name May 16, 2021 09:30 AM AMBULATORY - MEDICINE [facility] May 16, 2021 10:00 AM AMBULATORY - NONE [facility] May 20, 2021 08:15 AM AMBULATORY - MEDICINE [facility] May 20, 2021 08:30 AM AMBULATORY - MEDICINE [facility] May 20, 2021 10:30 AM AMBULATORY - MEDICINE [facility] May 24, 2021 03:00 PM AMBULATORY - SURGERY [facility] May 26, 2021 03:30 PM AMBULATORY - MEDICINE [facility] Jun 10, 2021 09:30 AM AMBULATORY - NONE [facility] Jun 10, 2021 10:00 AM AMBULATORY - NONE [facility] Jun 10, 2021 01:00 PM AMBULATORY - PSYCHIATRY [facility] Jun 23, 2021 09:00 AM AMBULATORY - SURGERY [facility] Jun 29, 2021 10:30 AM AMBULATORY - MEDICINE [facility] July 13, 2021 10:15 AM AMBULATORY - MEDICINE [facility] July 18, 2021 07:00 AM AMBULATORY - NONE [facility] Aug 22, 2021 10:28 AM AMBULATORY - MEDICINE [facility] Sep 15, 2021 09:00 AM AMBULATORY - MEDICINE [facility] Sep 15, 2021 09:30 AM AMBULATORY - MEDICINE [facility] Sep 15, 2021 10:00 AM AMBULATORY - NONE [facility] Oct 03, 2021 01:39 PM AMBULATORY - NONE [facility] Oct 03, 2021 01:42 PM AMBULATORY - NONE [facility] Active, Pending, and Scheduled Orders This section includes a listing of several types of active, pending, and scheduled orders, including clinic medications orders, diagnostic test orders, procedure orders and consult orders; where the start date of the order is 45 days before the date of the Encounter or 45 days after the date of the Encounter. The data comes from all [place] treatment facilities. Test Date/Time Test Type Test Details Facility Name May 23, 2021 12:00 AM Laboratory - CBC & DIFF BLOOD ONCO SP [facility] Chemistry Order ONCE May 23, 2021 12:00 AM Laboratory - COMPREHENSIVE METABOLIC [place] [facility] Chemistry Order PANEL+MG PLASMA ONCO SP Jun 01, 2021 12:00 AM Laboratory - CBC BLOOD SP ONCE [facility] Chemistry Order Jun 01, 2021 12:00 AM Laboratory - PSA SERUM SP [place] [facility] Chemistry Order Jun 01, 2021 12:00 AM Laboratory - CREATININE(INCLUDES [place] [facility] Chemistry Order EGFR) PLASMA SP Jun 01, 2021 12:00 AM Laboratory - ELECTROLYTES/ANION GAP [place] [facility] Chemistry Order PLASMA SP Jun 01, 2021 12:00 AM Laboratory - GLUCOSE PLASMA SP [place] [facility] Chemistry Order Jun 01, 2021 12:00 AM Laboratory - HEMOGLOBIN A1C BLOOD SP [place] [facility] Chemistry Order Jun 01, 2021 12:00 AM Laboratory - AST/SGOT PLASMA SP [place] [facility] Chemistry Order Jun 01, 2021 12:00 AM Laboratory - ALT/SGPT PLASMA SP [place] [facility] Chemistry Order Jun 01, 2021 12:00 AM Laboratory - LIPID PANEL,NON-FASTING [place] [facility] Chemistry Order PLASMA SP Jun 01, 2021 12:00 AM Laboratory - TSH W/REFLEX TO FREE T4 [facility] Order PLASMA SP Lab Results: +/- 30 days of the encounter This section includes the Chemistry and Hematology Lab Results on record with [place] for the patient. Radiology Reports and Pathology Reports are provided separately, in subsequent sections.Lab Results This section contains the Chemistry/Hematology Results that were resulted 30 days before or 30 daysafter the date of the Encounter. Date/Time Source Result Type Result - Unit Interpretation Reference Range Comment May 20, 2021 09:35 AM [facility] EXTRA MINT TUBE Specim en Type: PLASMA No comment enter ed. Ordering Provid er: SHELLY GUERRERO Report Released Date/Time: May 20, 2021 09:50 AM Reporting Lab: [facility] [address] [facility] [address] Performing Lab: [facility] [address] [facility] [address] EXTRA MINT TUBE RECEIVED May 20, 2021 [facility] CREATININE(INCLUDES EGFR) Sp ecimen Type: PLASMA 09:35 AM No comment enter ed. Ordering Provid er: SHELLY GUERRERO Report Released Date/Time: Jan 24, 2021 10:32 AM Reporting Lab: [facility] [address] [facility] [address] Performing Lab: [facility] [address] [facility] [address] CREATININE 1.2 0.7-1.2 CREAT EGFR(CKD-EPI) 63 >60 May 20, 2021 09:35 AM [facility] UREA NITROGEN Specim en Type: PLASMA No comment enter ed. Ordering Provid er: SHELLY GUERRERO Report Released Date/Time: Jan 24, 2021 10:32 AM Reporting Lab: [facility] [address] [facility] [address] Performing Lab: [facility] [address] [facility] [address] UREA NITROGEN 19 8-26 May 16, 2021 10:33 AM [facility] POC CREATININE Specim en Type: BLOOD No comment enter ed. Ordering Provid er: LIAM MEJIA Report Released Date/Time: May 16, 2021 10:35 AM Reporting Lab: [facility] [address] [facility] [address] Performing Lab: [facility] [address] [facility] [address] POC CREATININE 1.4 0.6-1.3 Social History: Smoking Status (Most current) and Tobacco Use (All prior to encounter date) This section includes the most current, and the historical, smoking and tobacco-related health factors from the [place] facility where the Encounter took place.Current Smoking Status This section includes the most current smoking, or tobacco-related health factor, from the [place] facility where the Encounter took place. Date/Time Current Smoking Status Comment Facility Jul 05, 2020 06:42 PM VA-TOBACCO FORMER USER [facility] Tobacco Use History This section includes a history of the smoking, or tobacco- related health factors, that were collected on or before the date of the Encounter. The data comes from the [place] facility where the Encounter took place. Date/Time Smoking Status/Tobacco Use Comment [facility] Jan 09, 2018 02:01 PM VA-TOBACCO FORMER USER [facility] Jan 09, 2018 02:01 PM [place]-TOBACCO QUIT 5 TO < 15 YRS [facility] Apr 16, 2017 10:17 AM FORMER TOBACCO USER 7Y OR GREATER [facility] Jun 09, 2016 10:03 AM FORMER TOBACCO USER 7Y OR GREATER [facility] May 06, 2015 08:19 AM FORMER TOBACCO USER 7Y OR GREATER [facility] Advance Directives: All historical and current Section Date Range: From patient's date of to the date document was created. This section includes ALL of a patient's completed or amended [place] Advance and Rescinded Directives. The entries below indicate that a directive exists for the patient, but an actual copy is not included with this document. The data comes from all [place] facilities. Date Advance Directives Provider Source July 24, 2021 ADVANCE DIRECTIVE PAPA LEWIS [facility] July 24, 2021 ADVANCE DIRECTIVE DISCUSSION PAPA LEWIS [facility] Radiology Reports: +/- 30 days [...] the Encounter. The data comes from all [place] treatment facilities. Date/Time Radiology Report Provider Source May 16, 2021 10:[address] (CAP) CHEST/ABD/PELVIS (P): MIGUELITO BRANDON [facility] ANDER LOCKWOOD [id number] -AUG [phone] 7 M Exm Date: MAY 16, 2021@10:39 Req Phys: SHELLY GUERRERO Pat Loc: ZZMSP HEM ONC [place] 3V (Req' Img Loc: CT IMAGING Service: Unknown (Case [id number] COMPLETE) CT (CAP) CHEST W CONTRAST (C T Detailed) CPT:57238 Contrast Media : Non-ionic Iodinated Reason for Study: NSCLC in remission. Follicula r lymphoma. Re-staging. (Case [id number] COMPLETE) CT (CAP) ABDOMEN/PELVIS W CO NTRAS(CT Detailed) CPT:93198 Contrast Media : Non-ionic Iodinated Clinical History: [place] IS NOT under investigation for COVID-19 or is COVID-19 negative 75yo with PMH NSCLC s/p treatment and follicula r lymphoma s/p treatment. Re-staging. Responsible provider nam e and phone number to notify for critical findings if other than user placing the order and pager listed below: User placing orders pager: [phone] LAST 3: Collection DT Specimen Test Name [...] 16, 2021 Date Verified: MAY 16, 2021 Billboard Poster Helper E-Sig:/ES/MIGUELITO BRANDON MD Report: Exam: CT chest, [...] with reconstitution of the right internal and aquatic director al iliac vessels via collaterals. No abdominal [...] Primary Interpreting Staff: MIGUELITO BRANDON MD, RADIOLOGIST (Billboard Poster Helper) /BJB Encounter Notes: All associated encounter notes This section contains the clinical notes associated to the Encounter. Date/Time Encounter Note(s) Provider Source May 05, 2021 08:54 AM REPORT OF CONTACT: ALEJANDRINA GRAVES [facility] LOCAL TITLE: PATIENT CONTACT NOTE V STANDARD TITLE: REPORT OF CONTACT DATE OF NOTE: MAY 05, 2021@08:54 ENTRY DATE: MAY 05, 2021@08:54:14 AUTHOR: ALEJANDRINA GRAVES EXP COSIGNER: URGENCY: STATUS: COMPLETED PATIENT CONTACT NOTE Has [facility] Call Center Phone number verified as correct. [phone] Angelita calling from [facility] car e regarding faxed PRN orders sent this week to be signed. She is asking for them to be faxed back today or tomorrow she will be seeing the [place] on Sunday. She can be reached at the above number to follow up. /shalonda/ ALEJANDRINA GRAVES VISN[facility] Signed: 05/05/2021 08:59 Receipt Acknowledged By: 05/05/2021 11:14 /shalonda/ MARIA LUZ MANCERA RN RN 05/05/2021 ADDENDUM STATUS: COMPLETED FYI /shalonda/ MARIA LUZ MANCERA RN RN Signed: 05/05/2021 11:15 Receipt Acknowledged By: 05/05/2021 13:06 /shalonda/ LIAM MEJIA MD STAFF PHYSICIAN 05/05/2021 ADDENDUM STATUS: COMPLETED One set of orders related to this patient located in [facility], signed, given to PACT RN to return fax. /rubén MEJIA MD STAFF PHYSICIAN Signed: 05/05/2021 13:06 Receipt Acknowledged By: * AWAITING SIGNATURE * MARIA LUZ MANCERA
--- OUTSIDE RECORDS SUMMARY | 2021-11-18 09:17 | XMS_ITS | Encounter Summary ---
:1945 Author Organization [facility] Address [address] [place] [address] Support Name Relationship Address Phone SILKE LOCKWOOD Unavailable [id number] [place] [phone] SILKE LOCKWOOD Unavailable [id number] [place] [phone] Insurance Providers: All historical and current Section [...] [place] Jun 10, [id number] [facility]) 2020 8 [id number] [phone] ,ANDER Bennett [place] Jun 10, [id number] [address] P ATIENT [facility] (WNR) ADVANTAGE (WNR) 2018 3 [id number] [phone] ,ANDER Bennett Selected Encounter This section includes the information on record at [place] for the Encounter. Date/Time Encounter Type Encounter Description Reason Provider Source Mar 23, 2021 12:35 Outpatient Encounter PRIMARY CARE/MEDICINE PM IHE Encounter Template Text not used by [place] Plan of Treatment: Future Appointments (+ 6 months) and Future Tests (+/- 45 days) The Plan of Treatment section includes future care activities for the patient from all [place] treatmentfacilities. This section includes future appointments and future orders which are active, pending orscheduled.Future Appointments This section includes appointments that were scheduled to occur 6 months from the date of the Encounter, up to a maximum of 20 appointments. The data comes from all [place] treatment facilities. Appointment Date/Time Appointment Type Appointment Facili ty Name Mar 25, 2021 10:30 AM AMBULATORY - MEDICINE [facility] May 16, 2021 09:30 AM AMBULATORY - MEDICINE [facility] May 16, 2021 10:00 AM AMBULATORY - NONE [facility] May 20, 2021 08:15 AM AMBULATORY - MEDICINE [facility] May 20, 2021 08:30 AM AMBULATORY - MEDICINE [facility] May 20, 2021 10:30 AM AMBULATORY - MEDICINE [facility] May 24, 2021 03:00 PM AMBULATORY - SURGERY [facility] May 26, 2021 03:30 PM AMBULATORY - MEDICINE [facility] Jun 10, 2021 09:30 AM AMBULATORY - NONE [facility] Jun 10, 2021 10:00 AM AMBULATORY - NONE [facility] Jun 10, 2021 01:00 PM AMBULATORY - PSYCHIATRY [facility] Jun 23, 2021 09:00 AM AMBULATORY - SURGERY [facility] Jun 29, 2021 10:30 AM AMBULATORY - MEDICINE [facility] July 13, 2021 10:15 AM AMBULATORY - MEDICINE [facility] July 18, 2021 07:00 AM AMBULATORY - NONE [facility] Aug 22, 2021 10:28 AM AMBULATORY - MEDICINE [facility] Sep 15, 2021 09:00 AM AMBULATORY - MEDICINE [facility] Sep 15, 2021 09:30 AM AMBULATORY - MEDICINE [facility] Sep 15, 2021 10:00 AM AMBULATORY - NONE [facility] Social History: Smoking Status (Most current) and Tobacco Use (All prior to encounter date) This section includes the most current, and the historical, smoking and tobacco-related health factors from the [place] facility where the Encounter took place.Current Smoking Status This section includes the most current smoking, or tobacco-related health factor, from the [place] facility where the Encounter took place. Date/Time Current Smoking Status Comment Facility Jul 05, 2020 06:42 PM VA-TOBACCO FORMER USER [facility] Tobacco Use History This section includes a history of the smoking, or tobacco- related health factors, that were collected on or before the date of the Encounter. The data comes from the [place] facility where the Encounter took place. Date/Time Smoking Status/Tobacco Use Comment [facility] katheryn Jan 09, 2018 02:01 PM VA-TOBACCO FORMER USER [facility] Jan 09, 2018 02:01 PM VA-TOBACCO QUIT 5 TO < 15 YRS [facility] [...] ALL of a patient's completed or amended [place] Advance and Rescinded Directives. The entries below indicate that a directive exists for the patient, but an actual copy is not included with this document. The data comes from all [place] facilities. Date Advance Directives Provider Source July 24, 2021 ADVANCE DIRECTIVE PAPA LEWIS [facility] July 24, 2021 ADVANCE DIRECTIVE DISCUSSION PAPA LEWIS [facility] Encounter Notes: All associated encounter notes This section contains the clinical notes associated to the Encounter. Date/Time Encounter Note(s) Provider Source Mar 23, 2021 12:35 PM HOME HEALTH REFERRAL NOTE: ARELY HU [facility] LOCAL TITLE: [facility] HOME HEALTH CARE STANDARD TITLE: HOME HEALTH REFERRAL NOTE DATE OF NOTE: MAR 23, 2021@12:35 ENTRY DATE: MAR 23, 2021@12:35:39 AUTHOR: ARELY HU EXP COSIGNER: URGENCY: STATUS: COMPLETED HOME HEALTH CARE CERTIFICATION AND PLAN OF CARE SIGNED BY: Dr[facility] walton.. [facility] Certification period From: [id number] To: [id number] /shalonda/ ARELY HU LEAD CHIEF WHARFINGER Signed: 03/23/2021 12:36
--- OUTSIDE RECORDS SUMMARY | 2021-11-18 09:17 | XMS_ITS | Encounter Summary ---
:1945 Author Organization [facility] Address [address] [place] [address] Support Name Relationship Address Phone SILKE LOCKWOOD Unavailable [id number] [place] [phone] SILKE LOCKWOOD Unavailable [id number] [place] [phone] Insurance Providers: All historical and current Section [...] Victor [place] Jun 10, [id number] [facility] (WNR) ADVANTAGE (WNR) 2019 8 [id number] [phone] ,ANDER Bennett [place] Jun 10, [id number] [facility] (WNR) ADVANTAGE (WNR) 2018 3 [id number] [phone] ,ANDER Bennett Selected Encounter This section includes the information on record at [place] for the Encounter. Date/Time Encounter Type Encounter Description Reason Provider Source May 03, 2021 08:30 Outpatient Encounter TELEPHONE TRIAGE AM IHE Encounter Template Text not used by [place] Plan of Treatment: Future Appointments (+ 6 months) and Future Tests (+/- 45 days) The Plan of Treatment section includes future care activities for the patient from all [place] treatmentfacilities. This section includes future appointments and future orders which are active, pending orscheduled.Future Appointments This section includes appointments that were scheduled to occur 6 months from the date of the Encounter, up to a maximum of 20 appointments. The data comes from all [place] treatment facilities. Appointment Date/Time Appointment Type Appointment Facili ty Name May 16, 2021 09:30 AM AMBULATORY - MEDICINE [facility] May 16, 2021 10:00 AM AMBULATORY - NONE [facility] May 20, 2021 08:15 AM AMBULATORY - MEDICINE [facility] CS May 20, 2021 08:30 AM AMBULATORY - MEDICINE [facility] May 20, 2021 10:30 AM AMBULATORY - MEDICINE [facility] CS May 24, 2021 03:00 PM AMBULATORY - SURGERY [facility] S May 26, 2021 03:30 PM AMBULATORY - MEDICINE [facility] CS Jun 10, 2021 09:30 AM AMBULATORY - NONE [facility] Jun 10, 2021 10:00 AM AMBULATORY - NONE [facility] Jun 10, 2021 01:00 PM AMBULATORY - PSYCHIATRY [facility] Jun 23, 2021 09:00 AM AMBULATORY - SURGERY [facility] S Jun 29, 2021 10:30 AM AMBULATORY - MEDICINE [facility] CS July 13, 2021 10:15 AM AMBULATORY - MEDICINE [facility] July 18, 2021 07:00 AM AMBULATORY - NONE [facility] Aug 22, 2021 10:28 AM AMBULATORY - MEDICINE [facility] Sep 15, 2021 09:00 AM AMBULATORY - MEDICINE [facility] Sep 15, 2021 09:30 AM AMBULATORY - MEDICINE [facility] Sep 15, 2021 10:00 AM AMBULATORY - NONE [facility] Oct 03, 2021 01:39 PM AMBULATORY - NONE [facility] Oct 03, 2021 01:42 PM AMBULATORY - NONE [facility] Active, Pending, and Scheduled Orders This section includes a listing of several types of active, pending, and scheduled orders, including clinic medications orders, diagnostic test orders, procedure orders and consult orders; where the start date of the order is 45 days before the date of the Encounter or 45 days after the date of the Encounter. The data comes from all [place] treatment facilities. Test Date/Time Test Type Test Details Facility Name May 23, 2021 12:00 AM [facility] May 23, 2021 12:00 AM Laboratory - COMPREHENSIVE METABOLIC [facility] Chemistry Order PANEL+MG PLASMA ONCO SP Jun 01, 2021 12:00 AM [facility] - [facility] Chemistry Order Jun 01, 2021 12:00 AM Laboratory - CBC BLOOD SP ONCE MIRNA GAMING [facility] Chemistry Order Jun 01, 2021 12:00 AM Laboratory - GLUCOSE PLASMA SP MIRNA GAMING [facility] Chemistry Order Jun 01, 2021 12:00 AM Laboratory - ELECTROLYTES/ANION GAP [facility] Chemistry Order PLASMA SP Jun 01, 2021 12:00 AM Laboratory - HEMOGLOBIN A1C BLOOD SP [facility] Chemistry Order Jun 01, 2021 12:00 AM Laboratory - AST/SGOT [facility] Order Jun 01, 2021 12:00 AM Laboratory - CREATININE(INCLUDES [place] POLIS [facility] Chemistry Order EGFR) PLASMA SP Jun 01, 2021 12:00 AM Laboratory - ALT/SGPT PLASMA SP ARIADNA PAL [facility] Chemistry Order Jun 01, 2021 12:00 AM Laboratory - LIPID PANEL,NON-FASTING [facility] Chemistry Order PLASMA SP Jun 01, 2021 12:00 AM Laboratory - TSH W/REFLEX TO FREE T4 [facility] Chemistry Order PLASMA SP Lab Results: +/- 30 days of the encounter This section includes the Chemistry and Hematology Lab Results on record with [place] for the patient. Radiology Reports and Pathology Reports are provided separately, in subsequent sections.Lab Results This section contains the Chemistry/Hematology Results that were resulted 30 days before or 30 daysafter the date of the Encounter. Date/Time Source Result Type Result - Unit Interpretation Reference Range Comment May 20, 2021 09:35 AM [facility] UREA NITROGEN Specim en Type: PLASMA No comment enter ed. Ordering Provid er: SHELLY GUERRERO Report Released Date/Time: Jan 24, 2021 10:32 AM Reporting Lab: [facility] [address] [facility] [address] Performing Lab: [facility] [address] [facility] [address] UREA NITROGEN 19 8-26 May 20, 2021 09:35 AM [facility] EXTRA MINT TUBE Specim en Type: PLASMA No comment enter ed. Ordering Provid er: SHELLY GUERRERO Report Released Date/Time: May 20, 2021 09:50 AM Reporting Lab: [facility] [address] [facility] [address] Performing Lab: [facility] [address] [facility] [address] EXTRA MINT TUBE RECEIVED May 20, 2021 [facility] CREATININE(INCLUDES EGFR) Sp ecimen Type: PLASMA 09:35 AM No comment enter ed. Ordering Provid er: SHELLY GUERRERO Report Released Date/Time: Jan 24, 2021 10:32 AM Reporting Lab: [facility] [address] [facility] [address] Performing Lab: [facility] [address] [facility] [address] CREATININE 1.2 0.7-1.2 CREAT EGFR(CKD-EPI) 63 >60 May 16, 2021 10:33 AM [facility] POC CREATININE Specim en Type: BLOOD No comment enter ed. Ordering Provid er: LIAM MEJIA Report Released Date/Time: May 16, 2021 10:35 AM Reporting Lab: [facility] [address] [facility] [address] Performing Lab: [facility] [address] [facility] [address] POC CREATININE 1.4 0.6-1.3 Social History: Smoking Status (Most current) and Tobacco Use (All prior to encounter date) This section includes the most current, and the historical, smoking and tobacco-related health factors from the [place] facility where the Encounter took place.Current Smoking Status This section includes the most current smoking, or tobacco-related health factor, from the [place] facility where the Encounter took place. Date/Time Current Smoking Status Comment Facility Jul 05, 2020 06:42 PM VA-TOBACCO FORMER USER [facility] Tobacco Use History This section includes a history of the smoking, or tobacco- related health factors, that were collected on or before the date of the Encounter. The data comes from the [place] facility where the Encounter took place. Date/Time Smoking Status/Tobacco Use Comment [facility] Jan 09, 2018 02:01 PM VA-TOBACCO FORMER USER [facility] Jan 09, 2018 02:01 PM [place]-TOBACCO QUIT 5 TO < 15 YRS [facility] Apr 16, 2017 10:17 AM FORMER TOBACCO USER 7Y OR GREATER [facility] Jun 09, 2016 10:03 AM FORMER TOBACCO USER 7Y OR GREATER [facility] May 06, 2015 08:19 AM FORMER TOBACCO USER 7Y OR GREATER [facility] Advance Directives: All historical and current Section Date Range: From patient's date of to the date document was created. This section includes ALL of a patient's completed or amended [place] Advance and Rescinded Directives. The entries below indicate that a directive exists for the patient, but an actual copy is not included with this document. The data comes from all [place] facilities. Date Advance Directives Provider Source July 24, 2021 ADVANCE DIRECTIVE PAPA LEWIS [facility] July 24, 2021 ADVANCE DIRECTIVE DISCUSSION PAPA [...] the Encounter. The data comes from all [place] treatment facilities. Date/Time Radiology Report Provider Source May 16, 2021 10:[address] (CAP) CHEST/ABD/PELVIS (P): MIGUELITO BRANDON [facility] ANDER LOCKWOOD [id number] -[birth year]G 24 [phone] 7 M Exm Date: MAY 16, 2021@10:39 Req Phys: SHELLY GUERRERO Pat Loc: [facility] HEM ONC LUIKART 3V (Req' Img Loc: CT IMAGING Service: Unknown (Case [id number] COMPLETE) CT (CAP) CHEST W CONTRAST (C T Detailed) CPT:97653 Contrast Media : Non-ionic Iodinated Reason for Study: NSCLC in remission. Follicula r lymphoma. Re-staging. (Case [id number] COMPLETE) CT (CAP) ABDOMEN/PELVIS W CO NTRAS(CT Detailed) CPT:20366 Contrast Media : Non-ionic Iodinated Clinical History: [facility] IS NOT under investigation for COVID-19 or is COVID-19 negative 75yo with PMH NSCLC s/p treatment and follicula r lymphoma s/p treatment. Re-staging. Responsible provider nam e and phone number to notify for critical findings if other than user placing the order and pager listed below: User placing orders pager: [phone] LAST 3: Collection DT Specimen Test Name [...] 16, 2021 Date Verified: MAY 16, 2021 Inspector Wreath E-Sig:/ES/MIGUELITO BRANDON MD Report: Exam: CT chest, [...] with reconstitution of the right internal and double cut sawyer al iliac vessels via collaterals. No abdominal [...] Primary Interpreting Staff: MIGUELITO BRANDON MD, RADIOLOGIST (Inspector Wreath) /BJB Encounter Notes: All associated encounter notes This section contains the clinical notes associated to the Encounter. Date/Time Encounter Note(s) Provider Source May 03, 2021 08:30 AM REPORT OF CONTACT: IRIS RIOS [facility] LOCAL TITLE: PATIENT CONTACT NOTE A A STANDARD TITLE: REPORT OF CONTACT DATE OF NOTE: MAY 03, 2021@08:30 ENTRY DATE: MAY 03, 2021@08:30:10 AUTHOR: IRIS RIOS EXP COSIGNER: URGENCY: STATUS: COMPLETED PATIENT CONTACT NOTE Has ADDENDA Primary Care Call Center Public [facility] Nurse/Home Care Nurse called with questions. Phone number verified as correct. [phone] Angelita RN, called from [facility]. Felipe zelayakar requested a callback regarding 's medications and 's pu lse rate. Please call Angelita. /shalonda/ DIXON RIOS CRIMINAL PSYCHOLOGIST Signed: 05/03/2021 08:31 Receipt Acknowledged By: 05/03/2021 09:50 /shalonda/ MARIA LUZ MANCERA RN RN 05/03/2021 ADDENDUM STATUS: COMPLETED Telephone call to Angelita in regards to above. Angelita is currently setting up all pt.'s medications via [facility]. Pt. has 2 medications she is requesting medication verbage/orders to be changed: Current Order in CPRS: Orderable Item: MAGNESIUM OXIDE TAB Drug: No Dispense Drug Selected Status: Active Dosage: 1 TAB Schedule: EVERY DAY Route: MOUTH Start Date: [facility] Oder #: [id number] Documented By: KENNEDY GAMBOA on Jul 05, 2020@ 21:33:32 Statement/Explanation/Comments: Patient not sure which magnesium formulation (o r dose) he take Orderable Item: CHOLECALCIFEROL TAB Drug: CHOLECALCIF 25MCG (D3-1,000UNIT) TAB Status: Active Dosage: 25MCG Schedule: EVERY DAY Route: MOUTH Start Date: [facility]S Oder #: [id number] Documented By: KHANH SANDERS on Sep 02, 2020@13 :45:56 Statement/Explanation/Comments: Non-VA medication that patient takes on their o wn. Homecare RN requests Magnesium Oxide tablet be c hanged to be 400mg & Cholecalciferol be D3-2000 units(that is what pt has in home) Will ask PCP is she is willing to update pt medi cation dose for 2 above medications. RN will FAX update to [phone] Pt called in regards to pulse rate. Pt's th jennifer, she states they put new batteries in the pulse oximeter and pulse rate i n 80s. Pt has Call Center # /es/ MARIA LUZ MANCERA RN RN Signed: 05/03/2021 11:10 Receipt Acknowledged By: 05/03/2021 11:19 /shalonda/ LIAM MEJIA MD STAFF PHYSICIAN 05/03/2021 ADDENDUM STATUS: COMPLETED Recent calcium and Mg levels reviewed in chart; they have been w/in normal range. Meds updated as requested on nonVA med st. /shalonda/ LIAM MEJIA MD STAFF PHYSICIAN Signed: 05/03/2021 11:19 Receipt Acknowledged By: * AWAITING SIGNATURE * MARIA LUZ MANCERA
--- OUTSIDE RECORDS SUMMARY | 2021-11-18 09:17 | XMS_ITS | Encounter Summary ---
:1945 Author Organization [facility] Address [address] [place] [address] Support Name Relationship Address Phone SILKE LOCKWOOD Unavailable [id number] [place] [id number] SILKE LOCKWOOD Unavailable [id number] [place] [id number] Insurance Providers: All historical and current Section [...] Victor [place] Jun 10, [id number] [facility] (WNR) ADVANTAGE (WNR) 2019 8 [id number] [phone] ,ANDER Bennett [place] Jun 10, [id number] [facility] (WNR) ADVANTAGE (WNR) 2018 3 [id number] [phone] ,ANDER Bennett Selected Encounter This section includes the information on record at [place] for the Encounter. Date/Time Encounter Type Encounter Description Reason Provider Source Apr 18, 2021 02:50 Outpatient Encounter TELEPHONE TRIAGE PM IHE Encounter Template Text not used by [place] Plan of Treatment: Future Appointments (+ 6 months) and Future Tests (+/- 45 days) The Plan of Treatment section includes future care activities for the patient from all [place] treatmentfacilities. This section includes future appointments and future orders which are active, pending orscheduled.Future Appointments This section includes appointments that were scheduled to occur 6 months from the date of the Encounter, up to a maximum of 20 appointments. The data comes from all [place] treatment facilities. Appointment Date/Time Appointment Type Appointment Facili ty Name May 16, 2021 09:30 AM AMBULATORY - MEDICINE [facility] CS May 16, 2021 10:00 AM AMBULATORY - NONE [facility] May 20, 2021 08:15 AM AMBULATORY - MEDICINE [facility] CS May 20, 2021 08:30 AM AMBULATORY - MEDICINE [facility] May 20, 2021 10:30 AM AMBULATORY - MEDICINE [facility] CS May 24, 2021 03:00 PM AMBULATORY - SURGERY [facility] S May 26, 2021 03:30 PM AMBULATORY - MEDICINE [facility] CS Jun 10, 2021 09:30 AM AMBULATORY - NONE [facility] Jun 10, 2021 10:00 AM AMBULATORY - NONE [facility] Jun 10, 2021 01:00 PM AMBULATORY - PSYCHIATRY [facility] Jun 23, 2021 09:00 AM AMBULATORY - SURGERY [facility] S Jun 29, 2021 10:30 AM AMBULATORY - MEDICINE [facility] CS July 13, 2021 10:15 AM AMBULATORY - MEDICINE [facility] July 18, 2021 07:00 AM AMBULATORY - NONE [facility] Aug 22, 2021 10:28 AM AMBULATORY - MEDICINE [facility] Sep 15, 2021 09:00 AM AMBULATORY - MEDICINE [facility] Sep 15, 2021 09:30 AM AMBULATORY - MEDICINE [facility] Sep 15, 2021 10:00 AM AMBULATORY - NONE [facility] Oct 03, 2021 01:39 PM AMBULATORY - NONE [facility] Oct 03, 2021 01:42 PM AMBULATORY - NONE [facility] Active, Pending, and Scheduled Orders This section includes a listing of several types of active, pending, and scheduled orders, including clinic medications orders, diagnostic test orders, procedure orders and consult orders; where the start date of the order is 45 days before the date of the Encounter or 45 days after the date of the Encounter. The data comes from all [place] treatment facilities. Test Date/Time Test Type Test Details Facility Name May 23, 2021 12:00 AM Laboratory - CBC & DIFF [facility]LO[facility] Order ONCE May 23, 2021 12:00 AM Laboratory - COMPREHENSIVE METABOLIC [place] [facility] Chemistry Order PANEL+MG PLASMA ONCO SP Jun 01, 2021 12:00 AM [facility] - [facility] Chemistry Order Jun 01, 2021 12:00 AM Laboratory - CBC BLOOD SP ONCE [facility] Chemistry Order Jun 01, 2021 12:00 AM Laboratory - CREATININE(INCLUDES MALVIN DYKES [facility] Chemistry Order EGFR) PLASMA SP Jun 01, 2021 12:00 AM Laboratory - ELECTROLYTES/ANION GAP [facility] Chemistry Order PLASMA SP Jun 01, 2021 12:00 AM Laboratory - HEMOGLOBIN A1C BLOOD SP [place] [facility] Chemistry Order Jun 01, 2021 12:00 AM Laboratory - ALT/SGPT PLASMA SP [facility] Chemistry Order Jun 01, 2021 12:00 AM Laboratory - GLUCOSE PLASMA SP [facility] Chemistry Order Jun 01, 2021 12:00 AM Laboratory - TSH W/REFLEX TO FREE T4 [place] [facility] Chemistry Order PLASMA SP Jun 01, 2021 12:00 AM Laboratory - LIPID PANEL,NON-FASTING [facility] Chemistry Order PLASMA SP Jun 01, 2021 12:00 AM Laboratory - AST/SGOT PLASMA SP [facility] Chemistry Order Lab Results: +/- 30 days of the encounter This section includes the Chemistry and Hematology Lab Results on record with [place] for the patient. Radiology Reports and Pathology Reports are provided separately, in subsequent sections.Lab Results This section contains the Chemistry/Hematology Results that were resulted 30 days before or 30 daysafter the date of the Encounter. Date/Time Source Result Type Result - Unit Interpretation Reference Range Comment May 16, 2021 10:33 AM [facility] POC CREATININE Specim en Type: BLOOD No comment enter ed. Ordering Provid er: LIAM MEJIA Report Released Date/Time: May 16, 2021 10:35 AM Reporting Lab: [facility] [id number] Performing Lab: [facility] [id number] POC CREATININE 1.4 0.6-1.3 Social History: Smoking Status (Most current) and Tobacco Use (All prior to encounter date) This section includes the most current, and the historical, smoking and tobacco-related health factors from the [place] facility where the Encounter took place.Current Smoking Status This section includes the most current smoking, or tobacco-related health factor, from the [place] facility where the Encounter took place. Date/Time Current Smoking Status Comment Facility Jul 05, 2020 06:42 PM VA-TOBACCO FORMER USER [facility] Tobacco Use History This section includes a history of the smoking, or tobacco- related health factors, that were collected on or before the date of the Encounter. The data comes from the [place] facility where the Encounter took place. Date/Time Smoking Status/Tobacco Use Comment Facil ity Jan 09, 2018 02:01 PM VA-TOBACCO FORMER USER [facility] Jan 09, 2018 02:01 PM VA-TOBACCO QUIT 5 TO < 15 YRS [facility] Apr 16, 2017 10:17 AM FORMER TOBACCO USER 7Y OR GREATER [facility] Jun 09, 2016 10:03 AM FORMER TOBACCO USER 7Y OR GREATER [facility] May 06, 2015 08:19 AM FORMER TOBACCO USER 7Y OR GREATER [facility] Advance Directives: All historical and current Section Date Range: From patient's date of to the date document was created. This section includes ALL of a patient's completed or amended [place] Advance and Rescinded Directives. The entries below indicate that a directive exists for the patient, but an actual copy is not included with this document. The data comes from all [place] facilities. Date Advance Directives Provider Source July 24, 2021 ADVANCE DIRECTIVE PAPA LEWIS [facility] July 24, 2021 ADVANCE DIRECTIVE [...] the Encounter. The data comes from all [place] treatment facilities. 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 (Case [id number] COMPLETE) CT (CAP) ABDOMEN/PELVIS W CO NTRAS(CT Detailed) CPT:24400 Contrast Media : Non-ionic Iodinated Clinical History: IS NOT under investigation for COVID-19 or is COVID-19 negative 75yo with PMH NSCLC s/p treatment and follicula r lymphoma s/p treatment. Re-staging. Responsible provider nam e and phone number to notify for critical findings if other than user placing the order and pager listed below: User placing orders pager: [phone] LAST 3: Collection DT Specimen Test Name [...] 16, 2021 Date Verified: MAY 16, 2021 Customer Order Clerk E-Sig:/ES/MIGUELITO BRANDON MD Report: Exam: CT chest, [...] with reconstitution of the right internal and hl7 developer al iliac vessels via collaterals. No abdominal [...] Primary Interpreting Staff: MIGUELITO BRANDON MD, RADIOLOGIST (Customer Order Clerk) /BJB Encounter Notes: All associated encounter notes This section contains the clinical notes associated to the Encounter. Date/Time Encounter Note(s) Provider Source Apr 18, 2021 02:50 PM REPORT OF CONTACT: BEENA WHEAT [facility] LOCAL TITLE: PATIENT CONTACT NOTE STANDARD TITLE: REPORT OF CONTACT DATE OF NOTE: APR 18, 2021@14:50 ENTRY DATE: APR 18, 2021@14:50:38 AUTHOR: BEENA WHEAT EXP COSIGNER: URGENCY: STATUS: COMPLETED PATIENT CONTACT NOTE Has ADDENDA Primary Care Call Center Public Health Nurse/Home Care Nurse called with questions. Phone number verified as correct. [phone] Angelita called from [facility]. Called to let PCP heart rate to 170 while carry two 50 pound bags of sunflower seeds , went down after he sat down for a while. /shalonda/ BEENA WHEAT VISAbrahan [address] [facility] MSA Signed: 04/18/2021 14:53 Receipt Acknowledged By: 04/18/2021 15:37 /shalonda/ MARIA LUZ MANCERA RN RN 04/19/2021 08:34 /shalonda/ LIAM MEJIA MD STAFF PHYSICIAN 04/19/2021 ADDENDUM STATUS: COMPLETED Pt has known paroxysmal atrial fib/flutt er. Pt followed by EP Cardiology. Will ask PC RN to call pt, make s ure he is now feeling well, check HR today, and also will alert EP Cardiology pro vider to above note. This writer technical publications is appreciative to all. /shalonda/ LIAM MEJIA MD STAFF PHYSICIAN Signed: 04/19/2021 08:30 Receipt Acknowledged By: 04/19/2021 09:24 /rubén MANCERA RN RN 04/19/2021 08:37 /rubén LAZAR PA-C PHYSICIAN MANAGER GENERATION 04/19/2021 ADDENDUM STATUS: COMPLETED Would be reasonable to increase diltiazem to 240 mg daily if BP allows for improved rate control. /rubén LAZAR PA-C PHYSICIAN MANAGER GENERATION Signed: 04/19/2021 08:38 Receipt Acknowledged By: * AWAITING SIGNATURE * MARIA LUZ MANCERA 04/19/2021 09:55 /rubén MEJIA MD STAFF PHYSICIAN 04/19/2021 ADDENDUM STATUS: COMPLETED Pt contacted in regards to above episode. Pt states, I was doing something dumb carrying those heavy bags...I went up and d own too many steps. My friend just last week of a hea rt attack, so I'm going to try and be more careful. Pt took blood pressure this am. VS: B/P 128/59, pulse 82, Oxygenation 96% Pt denies any SOB, dizziness, headache. Reviewed medications with and pt. Pt is zachariah ing as prescribed. Pt will make Cardiology appointment today to emmie chavira on above episode. Offered f/u appointment with PCP and pt declines , plans May 2021. Pt has CALL Center #. /rubén MANCERA RN RN Signed: 04/19/2021 10:14 04/19/2021 ADDENDUM STATUS: COMPLETED Will ask PC RN to inquire about home BPs and res ting pulse, alert this writer technical publications and Dinesh Lazar with results. Also request that P C RN inquire if pt has peripheral edema, as this is common side effect of Diltiazem. PCP appreciative to all. /rubén MEJIA MD STAFF PHYSICIAN Signed: 04/19/2021 09:56 Receipt Acknowledged By: 04/19/2021 10:20 /rubén MANCERA RN RN 04/19/2021 10:01 /rubén LAZAR PA-C PHYSICIAN MANAGER GENERATION 04/19/2021 ADDENDUM STATUS: COMPLETED Pt prefers to discuss any changes with c ardiac medications with Cardiac Clinic Provider He states he will call Cardiac Clinic t hilary and make appointment. /rubén MANCERA RN RN Signed: 04/19/2021 10:22
--- OUTSIDE RECORDS SUMMARY | 2021-11-18 09:17 | XMS_ITS | Encounter Summary ---
:1945 Author Organization [facility] Address [address] [place] [address] Support Name Relationship Address Phone SILKE LOCKWOOD Unavailable [id number] [address] SILKE LOCKWOOD Unavailable [id number] [address] Insurance Providers: All historical and current Section [...] Victor [place] Jun 10, [id number] [facility] (WNR) ADVANTAGE (WNR) 2019 8 [id number] [phone] ,ANDER Bennett [place] Jun 10, [id number] [facility] (WNR) ADVANTAGE (WNR) 2018 3 [id number] [phone] ,ANDER Bennett Selected Encounter This section includes the information on record at [place] for the Encounter. 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 Date/Time Primary/Secondary Diagnosis Name Provider Source Diagnosis Mar 25, 2021 PRIMARY Encounter for LIZETH BRAVO [facility] 10:45 AM adjustment and D S HCS management of VAD Plan of Treatment: Future Appointments (+ 6 months) and Future Tests (+/- 45 days) The Plan of Treatment section includes future care activities for the patient from all [place] [facility] This section includes future appointments [...] 16, 2021 09:30 AM AMBULATORY - MEDICINE [facility] May 16, 2021 10:00 AM AMBULATORY - NONE [facility] May 20, 2021 08:15 AM AMBULATORY - MEDICINE [facility] May 20, 2021 08:30 AM AMBULATORY - MEDICINE [facility] May 20, 2021 10:30 AM AMBULATORY - MEDICINE [facility] May 24, 2021 03:00 PM AMBULATORY - SURGERY [facility] May 26, 2021 03:30 PM AMBULATORY - MEDICINE [facility] Jun 10, 2021 09:30 AM AMBULATORY - NONE [facility] Jun 10, 2021 10:00 AM AMBULATORY - NONE [facility] Jun 10, 2021 01:00 PM AMBULATORY - PSYCHIATRY [facility] Jun 23, 2021 09:00 AM AMBULATORY - SURGERY [facility] Jun 29, 2021 10:30 AM AMBULATORY - MEDICINE [facility] July 13, 2021 10:15 AM AMBULATORY - MEDICINE [facility] July 18, 2021 07:00 AM AMBULATORY - NONE [facility] Aug 22, 2021 10:28 AM AMBULATORY - MEDICINE [facility] Sep 15, 2021 09:00 AM AMBULATORY - MEDICINE [facility] Sep 15, 2021 09:30 AM AMBULATORY - MEDICINE [facility] Sep 15, 2021 10:00 AM AMBULATORY - NONE [facility] Social History: Smoking Status (Most current) and Tobacco Use (All prior to encounter date) This section includes the most current, and the historical, smoking and tobacco-related health factors from the [place] facility where the Encounter took place.Current Smoking Status This section includes the most current smoking, or tobacco-related health factor, from the [place] facility where the Encounter took place. Date/Time Current Smoking Status [facility] Facility Jul 05, 2020 06:42 PM VA-TOBACCO FORMER USER [facility] Tobacco Use History This section includes a history of the smoking, or tobacco- related health factors, that were collected on or before the date of the Encounter. The data comes from the [place] facility where the Encounter took place. Date/Time Smoking Status/Tobacco Use Comment Facil ity Jan 09, 2018 02:01 PM VA-TOBACCO FORMER USER [facility] Jan 09, 2018 02:01 PM [place]-TOBACCO QUIT 5 TO < 15 YRS [facility] Apr 16, 2017 10:17 AM FORMER TOBACCO USER 7Y OR GREATER [facility] Jun 09, 2016 10:03 AM FORMER TOBACCO USER 7Y OR GREATER [facility] May 06, 2015 08:19 AM FORMER TOBACCO USER 7Y OR GREATER [facility] Advance Directives: All historical and current Section [...] 24, 2021 ADVANCE DIRECTIVE DISCUSSION PAPA LEWIS [facility] July 24, 2021 ADVANCE DIRECTIVE PAPA LEWIS [facility] Encounter Notes: All associated encounter notes This section contains the clinical notes associated to the Encounter. Date/Time Encounter Note(s) Provider Source Mar 25, 2021 10:44 AM HEMATOLOGY AND ONCOLOGY NURSING OUTPAT IENT NOTE: DAVID BRAVO [facility] LOCAL TITLE: HEME/ONC BLOOD DRAW CLINIC NURSING NOTE STANDARD TITLE: HEMATOLOGY AND ONCOLOGY NURSING OUTPATIENT NOTE DATE OF NOTE: MAR 25, 2021@10:44 ENTRY DATE: MAR 25, 2021@10:44:16 AUTHOR: DAVID BRAVO EXP COSIGNER: URGENCY: STATUS: COMPLETED HEME/ONC BLOOD DRAW CLINIC NURSING NOTE Has ADDENDA Date of Service:Mar Procedure: blood collection through venous acces s device, port/PICC flush Venous Access Device Care: Type: Portacath 3/4 20g Mcdermott Needle Blood return: Yes Site: normal Labs drawn: No Flushes: normal saline, heparin 500 units Status: deaccessed Discharge to: Home Patient was notified they need their por t flushed in 30-60 days and to make an appt with the [facility] or at their own provider. /shalonda/ JOÃO NELSON LPN Signed: 03/25/2021 10:45 03/25/2021 ADDENDUM STATUS: COMPLETED Procedure: Port-a-cath De-Access: Verified port-a-cath has been flushed [id number] per policy. Sterile gauze appl ied over site until bleeding stopped., Band-aide applied., Patient verbalized understanding. /es/ JAZMINE SACNHEZ LPN, LPN Signed: 03/25/2021 10:48
--- OUTSIDE RECORDS SUMMARY | 2021-11-18 09:18 | XMS_ITS | Encounter Summary ---
:1945 Author Organization [facility] rs Address [address] [place] [id number] Support Name Relationship Address Phone SILKE LOCKWOOD Unavailable [id number] [address] SILKE LOCKWOOD Unavailable [id number] [address] Insurance Providers: All historical and current Section [...] Victor [place] Jun 10, [id number] MANDIE Pabon ATIENT [facility] (WNR) ADVANTAGE (WNR) 2019 8 [id number] [phone] ,ANDER Bennett [place] Jun 10, [id number] [facility]OM P [facility] 2018 3 [id number] [phone] ,ANDER Bennett Selected Encounter This section includes the information on record at [place] for the Encounter. Date/Time Encounter Type Encounter Reason Provider Source Description Jan 24, 2021 OFFICE O/P EST ONCOLOGY/TUMOR ICD-10-CM C82.90 Michael BARRERA 10:00 AM HI 40-54 MIN Follicular D lymphoma, unspecified, unspecified site with Provider Comments: Lymphoma (RUST [id number]) IHE Encounter Template Text not used by [place] Assessments - Encounter Diagnoses This section includes the primary and secondary diagnoses documented for the Encounter. 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 The data comes from all [place] treatment facilities. Appointment Date/Time Appointment Type Appointment Facili ty Name Mar 25, 2021 10:30 AM AMBULATORY - MEDICINE [facility] May 16, 2021 09:30 AM AMBULATORY - MEDICINE [facility] May 16, 2021 10:00 AM AMBULATORY - NONE [facility] May 20, 2021 08:15 AM AMBULATORY - MEDICINE [facility] May 20, 2021 08:30 AM AMBULATORY - MEDICINE [facility] May 20, 2021 10:30 AM AMBULATORY - MEDICINE [facility] May 24, 2021 03:00 PM AMBULATORY - SURGERY [facility] May 26, 2021 03:30 PM AMBULATORY - MEDICINE [facility] Jun 10, 2021 09:30 AM AMBULATORY - NONE [facility] Jun 10, 2021 10:00 AM AMBULATORY - NONE [facility] Jun 10, 2021 01:00 PM AMBULATORY - PSYCHIATRY [facility] Jun 23, 2021 09:00 AM AMBULATORY - SURGERY [facility] Jun 29, 2021 10:30 AM AMBULATORY - MEDICINE [facility] July 13, 2021 10:15 AM AMBULATORY - MEDICINE [facility] July 18, 2021 07:00 AM AMBULATORY - NONE [facility] Lab Results: +/- 30 days [...] Result - Unit Interpretation Reference Range Comment Jan 19, 2021 09:[address] [facility] POC CREATININE Specim en Type: BLOOD No comment enter ed. Ordering Provid er: LIAM MEJIA Report Released Date/Time: Jan 19, 2021 09:06 AM Reporting Lab: [facility] [address] [facility] [id number] Performing Lab: [facility] [address] [facility] [address] POC CREATININE 1.4 0.6-1.3 Jan 19, 2021 08:[address] [facility] UREA NITROGEN Specim en Type: PLASMA No comment enter ed. Ordering Provid er: RALPH GUERRERO Report Released Date/Time: Oct 25, 2020 10:49 AM Reporting Lab: [facility] [address] [facility] [address] Performing Lab: [facility] [address] [facility] [address] UREA NITROGEN 19 8-26 Jan 19, 2021 [facility] CREATININE(INCLUDES EGFR) Sp ecimen Type: PLASMA 08:45 AM No comment enter ed. Ordering Provid er: RALPH GUERRERO Report Released Date/Time: Oct 25, 2020 10:49 AM Reporting Lab: [facility] [address] [facility] [address] Performing Lab: [facility] [address] [facility] [address] CREATININE 1.2 0.7-1.2 ESTIMATED GFR(eGFR) 59 L >60 Jan 19, 2021 [facility] COMPREHENSIVE METABOLIC Spec imen Type: PLASMA 08:45 AM PANEL+MG No comment enter ed. Ordering Provid er: RALPH GUERRERO Report Released Date/Time: Oct 25, 2020 10:49 AM Reporting Lab: [facility] [address] [facility] [address] Performing Lab: [facility] [address] [facility] [address] CREATININE 1.2 0.7-1.2 UREA NITROGEN 19 8-26 GLUCOSE 97 74-100 SODIUM 141 136-145 POTASSIUM 4.4 3.5-5.1 CHLORIDE 108 H 98-107 CO2 26 22-29 CALCIUM 9.2 8.4-10.2 PROTEIN,TOTAL 6.5 6.0-8.3 ALBUMIN 3.9 3.5-5.2 BILIRUBIN, TOTAL 0.5 0.2-1.2 MAGNESIUM 1.8 1.6-2.6 ANION GAP 7 5-15 ALKALINE PHOSPHATASE 76 40-150 ALT/SGPT 22 <55 AST/SGOT 18 <34 ESTIMATED GFR(eGFR) 59 L >60 Jan 19, 2021 08:[address] [facility] CBC & DIFF Specim en Type: BLOOD Comment: Automa kerrie Differential Performed Ordering Provid er: RALPH GUERRERO Report Released Date/Time: Oct 25, 2020 10:49 AM Reporting Lab: [facility] [address] Performing Lab: [facility] [address] WBC 6.68 4.0-11.0 RBC 3.83 L 4.6-6.2 HGB 11.6 L 13.5-17.9 HCT 36.1 L 41-54 MCV 94.3 80-100 MCH 30.3 27-33 MCHC 32.1 32.0-37.5 PLT 251 150-400 MPV 8.7 7.4-10.4 NEUT 60.3 LYMPHS 24.4 MONO 11.5 EOSINO 3.1 BASO 0.6 RDW 13.2 11.5-14.5 ABS LYMPH 1.63 1.0-4.0 ABS MONO 0.77 0.1-1.0 ABS NEUT 4.02 2.0-7.7 ABS EOS 0.21 0-0.5 ABS BASO 0.04 0-0.2 IG(META,MYELO,PRO) 0.1 ABS IMMATURE GRAN 0.01 0-0.1 Vital Signs: All taken on the encounter date This section contains inpatient and outpatient Vital Signs collected on the date of the Encounter. Date/Time Temperature Pulse Blood Respiratory SP02 Pain Height Weight Arslan dy Source Pressure Rate Mass Index Jan 24, 98.2 F 86 123/78 14 /min 98 % 0 193.5 29 [place] 2020 10:05 /min mm[Hg] lb [facility] Social History: Smoking Status (Most current) and [...] 05, 2020 06:42 PM [place]-TOBACCO FORMER USER [facility] Tobacco Use History This section includes a history of the smoking, or tobacco- related health factors, that were collected on or before the date of the Encounter. The data comes from the [place] facility where the Encounter took place. Date/Time Smoking Status/Tobacco Use Comment [facility] Jan 09, 2018 02:01 PM [place]-TOBACCO FORMER USER [facility] Jan 09, 2018 02:01 PM [place]-TOBACCO QUIT 5 TO < [address] [facility] Apr 16, 2017 10:17 AM FORMER TOBACCO USER 7Y OR GRE[address] [facility] Jun 09, 2016 10:03 AM FORMER TOBACCO USER 7Y OR [address] [facility] May 06, 2015 08:19 AM FORMER TOBACCO USER 7Y OR [address] [facility] Advance Directives: All historical and current Section Date Range: From patient's date of to the date document was created. This section includes ALL of a patient's completed or amended [place] Advance and Rescinded Directives. The entries below indicate that a directive exists for the patient, but an actual copy is not included with this document. The data comes from all [facility]. Date Advance Directives Provider Source July 24, [address] [facility] July 24, 2021 ADVANCE DIRECTIVE DISCUSSION PAPA LEWIS [facility] Radiology Reports: +/- 30 days of [...] treatment facilities. Date/Time Radiology Report Provider Source Jan 19, 2021 09:[address] (CAP) CHEST/ABD/PELVIS (P): CÉSAR ERNST [facility] ANDER LOCKWOOD [id number] -[birth year] M Exm Date: JAN 19, 2021@09:07 Req Phys: RALPH GUERRERO Loc: [facility] M ONC LUIKART 3V (Req'g Img Loc: CT IMAGING Service: Unknown (Case [id number] COMPLETE) CT (CAP) CHEST W CONTRAST ( CT Detailed) CPT:21548 Contrast Media : Non-ionic Iodinated Reason for Study: Interval imaging for follicul ar lymphoma and NSCLC (Case 1493 COMPLETE) CT (CAP) ABDOMEN/PELVIS W C ONTRAS(CT Detailed) CPT:46811 Contrast Media : Non-ionic Iodinated Clinical History: [place] IS NOT under investigation for COVID-19 or is COVID-19 negative Hx NSCLC, follicular lymphoma, possible RCC - i nterval imaging Responsible provider name and phone number to n otify for critical findings if other than user placing the order a nd pager listed below: User placing orders pager: LAST 3: Collection DT Specimen Test Name Result Units Ref Range 10/22/2020 14:11 PLASMA CREATIN INE 1.2 mg/dL 0.7 - 1.2 08/04/2020 15:45 PLASMA CREATININE 1.2 mg/dL 0.7 - 1.2 07/13/2020 05:30 PLASMA CREATININE 0.9 mg/dL 0.7 - 1.2 10/22/2020 14:11 PLASMA ESTIMATED GFR(eGF 5 9 L Ref: >=60 08/04/2020 15:45 PLASMA ESTIMATED GFR (eGF 59 L Ref: >=60 07/13/2020 05:30 PLASMA ESTIMATED GFR(eGF >60 Ref: >=60 Allergies: Patient has answered NKA Report Status: Verified Date Reported: JAN 19, 2021 Date Verified: JAN 19, 2021 Grounds Worker E-Sig:/ES/NADYA ERNST MD Report: Contrast-enhanced chest abdomen pelvis CT 01/19/2021 INDICATION: 75-year-old male with history of no n-small cell lung carcinoma, particularly lymphoma, and possible RCC (9 mm rounded enhancing lesion in the inferior pole the right kidney on MRI 04/28/2020). Interval imaging. TECHNIQUE: 114 mL of Omnipaque 300. Total dose DLP 739 mGy*cm. Comparisons: October 27, 2020, August 20, 2020, Ma y 2020, July 12, 2020, May 26, 2020. Chest CTA 08/10/2020. MRI a bdomen and pelvis April 28, 2020. Report: CHEST: Status post right lower lobectomy, with volume loss in the right hemithorax, presumed postprocedural pleur al thickening and architectural distortion posterior right lower lobe, and rightward shift of mediastinum. Redemonstration of 12.5 x 11 x 12 mm spiculated peribronchial nodularity in the anterior periphery of the med ial right lung apex, image 88 series 3, image 76 series 5. 6 x 3.5 mm solid pleural-based nodularity poste rior medial left upper lobe, image 90 series 3 Multiple areas of small pleural-based nodularit y, particularly right upper lobe, including 3 mm anterior right upper lobe, image 92 series 3, and 4 x 3 mm nodularity anterior r ight upper lobe, image 107 No new focal consolidations, or pleural effusio n. Moderate upper lobe predominant centrilobular e mphysema. No new pleural effusion. Tracheobronchial tree clear. Stable lobular ple ural thickening at the posterior lateral mid left lower lobe, exam ple image 237 series 3. Significant lower cervical and at least moderat e thoracic degenerative disc disease. Heart size normal. No pericardial effusion. Asc ending aorta 3.2 cm. Main pulmonary artery 2.1 cm. Concentric thickening of the distal esophagus, which can be seen in esophagitis. No hernia. Right IJ Port-A-Cath, catheter tip at the SVC r ight atrial junction. Moderate bilateral gynecomastia. Moderate to si gnificant left shoulder degenerative change, with remodeling o f the glenohumeral joint, and hypertrophic bone. ABDOMEN: Mesentery: Groundglass edema within the central mesentery, likely relating to treated lymphoma. A prior posterior inferior nodularity has decreased in size, now estimatin g 1.5 x 0.7 cm, previously 2.1 x 1.0 cm, however there is a new left lateral area of nodular enhancement, 1.9 x 1.6 cm, image 417 series 2, potentially new enlarging lymph node. Additiona l nonenlarged lymph nodes are present within the mesenteric e esvin, some more conspicuous. No new retroperitoneal adenopathy. Kidneys: Subtle possibly peripherally enhancing 10 mm nidus within the anterior cortex of the right kidney, image 4 6 series 2, in the region of enhancing nodularity on MR I 04/28/2020, concerning for early renal cell carcinoma. This is not well characterized on this single phase CT. No other definite suspect renal mass. No renal collecting system stone or evidence of renal obstruction. Liver: Multiple well-circumscribed low-attenuat ion hepatic foci, the largest measuring up to 12 mm within the an terior left liver lobe, image 291 series 2, some of the foci too small to characterize, favored as small hepatic cysts, a s confirmed by MRI 04/28/2020. No suspect liver mass. Gallbladder: Moderately filled, without stone. No features of cholecystitis or biliary obstruction. Spleen: Normal in size, without suspect mass. Adrenals: Normal. Pancreas: Moderate atrophy of pancreas. A 10 x 6 mm intermediate and mixed density nidus at the anterior neck of the pancreas, image 333 series 2, is low T2 signal, and nonen hancing on MRI, etiology uncertain. Recommend attention to this focus on subsequent surveillance. Bowel: Descending colonic diverticuli. Normal a ppendix. Vascularity: No aneurysm or dissection. Likely at least moderate stenosis near the origin of the celiac axis. SM A and BERNICE widely patent. The portal vein is patent. At least 2 l eft and 2-3 right renal arteries. Bone soft tissues: Mostly mild lumbar degenerat tobin disc disease. Pelvis: Beam hardening artifact in the pelvis f rom left hip arthroplasty. Bowel: Colonic diverticuli. No evidence of obst ruction. Prostate: 4.8 x 3.8 cm cross-section. Urinary bladder: Mildly filled, partially obscu red, without wall abnormality. Nodes: No adenopathy. Ascites: None. Vascular: Severe stenosis versus short segment occlusion of the proximal right common iliac artery, which may b e reconstituted at the bifurcation of the internal and external il iac arteries. The right external iliac artery is diminutive. At l east moderate stenosis of the right proximal external iliac a rtery. Bones: Left hip arthroplasty. Fusion of anterio r right SI joint. Fat extends into left inguinal canal. Impression: 1. Right lower lobectomy with right hemithorax volume loss and architectural lung change. 2. Redemonstration of 12.5 x 11 x 12 mm spicula kerrie peribronchial nodularity anterior periphery medial right lung apex, new from PET CT 11/30/2019, glucose avidity not evaluated . The nodularity is present 05/26/2020, with slight increase in m arginal thickening over the comparison interval. As the patient moe s history of prior neoplasm, follow-up PET/CT may be considered if the nodule continues to increase in conspicuity. 3. Vague visualization of a 1 cm potentially pe ripherally enhancing intraparenchymal nodule anterior in r ight renal cortex, questioned possible early enhancing renal cell carcinoma on MRI April 28, 2020. No definite asymmetric FDG u ptake seen on PET/CT 12/08/2019. Likely at least 2 and possibl y 3 right renal arteries and 2 left renal arteries. This may be best followed by renal mass protocol MRI. 4. New 1.9 x 1.6 cm soft tissue attenuation nod ule within left central mesentery groundglass, in a region of p resumed treated lymphoma. Several small adjacent lymph nodes al so more conspicuous. Progression of lymphoma is possibl e. No significant FDG uptake noted in small lymph nodes on PET/CT 12/08/2019. 5. 10 x 6 mm mixed attenuation focus anterior m id pancreatic neck, nonenhancing on MRI, area without FDG upt mulugeta on PET/CT 12/08/2019. Low T2 signal without increased diff usion in the region on prior MRI. Etiology is uncertain; rec ommend attention on subsequent surveillance imaging to ensure co ntinued stability. 6. 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 There may be moderate stenosis of the left comm on iliac artery. 7. Colonic diverticulosis. 8. Left hip arthroplasty. 9. Enlarged prostate. 10. Several additional small pulmonary nodules and pleural-based nodularity without significant change, potentia l old inflammatory. 11. Significant degenerative changes of left sh oulder. Significant degenerative changes of the cervica l spine. Fusion of anterior right SI joint. 12. Right IJ Port-A-Cath. 13. Moderate bilateral gynecomastia. 14. Mild thickening of the distal esophagus, wh ich may reflect mild esophagitis. 15. Hepatic cysts. Primary Interpreting Staff: NADYA ERNST MD, RADIOLOGIST (Grounds Worker) /RAH Encounter Notes: All associated encounter notes This section contains the clinical notes associated to the Encounter. Date/Time Encounter Note(s) Provider Source Jan 24, 2021 10:33 HEMATOLOGY AND ONCOLOGY ATTENDING NOTE: RALPH GUERRERO [facility] LOCAL TITLE: HEME/ONC CLINIC NOTE BERTA STANDARD TITLE: HEMATOLOGY AND ONCOLOGY ATTENDIN G NOTE DATE OF NOTE: JAN 24, 2021@10:33 ENTRY DATE: JAN 24, 2021@10:34 AUTHOR: RALPH GUERRERO- EXP COSIGNER: URGENCY: STATUS: COMPLETED HEME/ONC CLINIC NOTE Has ADDENDA HEMATOLOGY/ONCOLOGY CLINIC PROGRESS NOTE Date: Jan Diagnoses & Treatments: NSCLC adenocarcinoma, Stage IIb S/p resection + adjuvant cis/pemetrexed Follicular lymphoma, Stage IV S/p R-CVP & maintenance rituximab Suspected RCC Interval History: He has done well since last visit. No complaints or acute issues. He is going to have potential R hip surgery in the near future; he previously had L hip replacement. No changes in diet and he co ntinues to have regular bowel movements without any diarrhea. No abdominal pain or bloating. No feve rs or night sweats. No shortness of breath, cough, or hemoptysis. He does note that he has some cramping of his le gs bilaterally when walking greater distances, but he also has some cramping at night and his symptoms are not very consistent. We discussed that he could consider vascular surgery evaluation for his R common iliac arterial occlu dell. We reviewed his imaging findings. * Hem/Onc History * (Copied & Updated) - Stage 4 follicular lymphoma on observation. 74 yr./M with history stage IV follicular lymphoma, s/p 6 cycles R-CVP complete d 07/2016. He then completed 2 yrs of maintenance Rituximab (q 2 months x 2 y rs) in 05/2018 with post treatment PET-CT showing no evidence of lymphoma . He has been on surveillance since. See below for further updates. - PET scan in 01/2020 showed hyprmetabolic left pelvic lymph nodes. These were also seen on the February CT scan. An enlar ging RLL lung nodule has been present on scan since 06/2019. Percutaneous FNA w as nondiagnostic. - 01/30/20, right lower lobe wedge resection brandon wing stage 2B NSCLC. - 03/01/20 C1 Cisplatin+Pemtrexed - 03/22/2020 C2 Cisplatin+Pemtrexed - 04/12/2020 C3 Cisplatin+Pemtrexed with rash - 07/05-07/15/2020 possible Pemetrexed induced pneu monitis, although he received COVID vaccine after each cycles of chemo x2 (Pfi zer) - 10/25/2020 CT CAP shows progressive follicular lymphoma (abdominal LAD with fat stranding) and growth of his R renal mass. - 01/19/2021 CT CAP shows mixed areas of progression and spontaneous decreases in other areas. RUL spiculat ed mass that is suspicious but has not significantly progressed. 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 On 01/24 appt, he remains completely asymptomatic. Meds reviewed/Allergies reviewed: Patient has answered NKA Nursing note and vitals reviewed: Temp: 98.2 F [36.8 C] (01/24/2021 10:05) HR: 86 (01/24/2021 10:05) BP: 123/78 (01/24/2021 10:05) RR: 14 (01/24/2021 10:05) SpO2: 98 (01/24/2021 10:05) BMI: 29.5 Physical Exam: General: Well-appearing, in no acute distress HEENT: NCAT, anicteric, MMM, no oral lesions CV: RRR, normal S1, S2, no murmurs Resp: CTAB, no wheezing, rhonchi or rales Abd: NABS, soft, NT, ND Ext: WWP, no edema (R leg improved compared to p rior eval) Skin: No rashes or lesions Neuro: AOx3, grossly non-focal Psych: Euthymic LABORATORY STUDIES: The results of the laborator y studies obtained by Hem/Onc for this office visit were reviewed and discusse d with the patient at today's clinic visit. CBC: WBC 6.68 (01/19/21) HGB 11.6 L (01/19/21) HCT 36.1 L (01/19/21) MCV 94.3 (01/19/21) PLT 251 (01/19/21) ABS NEUT 4.02 (01/19/21) ABS LYMPH 1.63 (01/19/21) HGB 11.6 L BLOOD (01/19/21 08:45) 11.1 L BLOOD (11/23/20 09:15) 11.4 L BLOOD (10/22/20 14:11) Chemistry: SODIUM 141 (01/19/21) POTASSIUM 4.4 (01/19/21) CHLORIDE 108 H (01/19/21) BICARB / CO2 26 (01/19/21) CREATININE 1.2 (01/19/21) UREA NITROGEN 19 (01/19/21) BILIRUBIN, TOTAL 0.5 (01/19/21) ALK PHOSPHATASE 76 (01/19/21) ALT / SGPT 22 (01/19/21) AST / SGOT 18 (01/19/21) PROTEIN,TOTAL 6.5 (01/19/21) ALBUMIN 3.9 (01/19/21) CALCIUM 9.2 (01/19/21) MAGNESIUM 1.8 (01/19/21) IMAGING: CT C/A/P with contrast 01/19/2021 Impression: 1. Right lower lobectomy with right hemithorax volume loss and architectural lung change. 2. Redemonstration of 12.5 x 11 x 12 mm spicula kerrie peribronchial nodularity anterior periphery medial right lung apex, new from PET CT 11/30/2019, glucose avidity not evaluated . The nodularity is present 05/26/2020, with slight increase in m arginal thickening over the comparison interval. As the patient moe s history of prior neoplasm, follow-up PET/CT may be considered if the nodule continues to increase in conspicuity. 3. Vague visualization of a 1 cm potentially pe ripherally enhancing intraparenchymal nodule anterior in r ight renal cortex, questioned possible early enhancing renal cell carcinoma on MRI April 28, 2020. No definite asymmetric FDG u ptake seen on PET/CT 12/08/2019. Likely at least 2 and possibl y 3 right renal arteries and 2 left renal arteries. This may be best followed by renal mass protocol MRI. 4. New 1.9 x 1.6 cm soft tissue attenuation nod ule within left central mesentery groundglass, in a region of p resumed treated lymphoma. Several small adjacent lymph nodes al so more conspicuous. Progression of lymphoma is possibl e. No significant FDG uptake noted in small lymph nodes on PET/CT 12/08/2019. 5. 10 x 6 mm mixed attenuation focus anterior m id pancreatic neck, nonenhancing on MRI, area without FDG upt mulugeta on PET/CT 12/08/2019. Low T2 signal without increased diff usion in the region on prior MRI. Etiology is uncertain; rec ommend attention on subsequent surveillance imaging to ensure co ntinued stability. 6. 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 There may be moderate stenosis of the left comm on iliac artery. 7. Colonic diverticulosis. 8. Left hip arthroplasty. 9. Enlarged prostate. 10. Several additional small pulmonary nodules and pleural-based nodularity without significant change, potentia l old inflammatory. 11. Significant degenerative changes of left sh oulder. Significant degenerative changes of the cervica l spine. Fusion of anterior right SI joint. 12. Right IJ Port-A-Cath. 13. Moderate bilateral gynecomastia. 14. Mild thickening of the distal esophagus, wh ich may reflect mild esophagitis. 15. Hepatic cysts. Performance Status: ECOG - 0 ASSESSMENT/PLAN: Mr. Lockwood is a pleasant 74 yo male with hist ory of lung adenocarcinoma IIb s/p resection and adjuvant chemotherapy on o bservation, follicular lymphoma s/p prior treatment on observation, and suspected RCC on observation. # Stage 2B lung adenocarcinoma # RUL spiculated mass # Pleural-based lung nodules The 2 year survival rate is 76% and the 5 year s urvival rate is 56%. In the LACE meta-analysis, a benefit of adjuvant cispla tin based chemo that reached statistical significance was seen for patients w ith stage II (HR of 0.83, 95% CI 0.73-0.95). Due to less toxicity, Rakesh Barrera suggested pemetrexed and cisplatin for 4 21-day cycles. He initially tolerated the chemo well but then experienced pneumonitis poss ibly related to pemetrexed which, he has mostly recovered from. Follow-up i vida has revealed unchanged nodules without evidence of recurrent disease. H owever, he does have a RUL spiculated lesion which has been without significant progression, but warrants ongoing observation. 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 Has slowly recov ered since. Followed with pulmonology and weaned from steroids. He has essentially completely recovered. - Cont to follow with pulmonology PRN # Stage IV follicular lymphoma s/p 6 cycles R-CVP completed 07/2016. Then comple kerrie 12 cycles of maintenance Rituximab (q 2 months x 2 yrs) in 05/2018, tolera kerrie very well. Overall his follicular lymphoma has since remained stable th ough he has had areas of progression and areas of spo ntaneous decrease. However, he remains asymptomatic and we would hold off on treatment without any s ymptoms. - CT CAP in 4mo as above; anticipate need for fu ture treatment - Instructed to seek evaluation should he become symptomatic - RTC in 4mo to review imaging and symptoms # Right kidney mass Initially incidentally identified on CT 02/17/20 with f/u US and MRI suspicious for RCC. Following with urology and rakesh neves at urology tumor board (04/29/20). Now slowly progressing on CT (1 2mm vs 10mm on 05/26/20). Planning for observation. - Continue observation and follow-up with Dr. Worthy on 05/24/2020 # Chronic R common iliac artery thrombus # Possible claudication # RLE atrophy Thrombus long-standing and with collaterals. He probably has developed some atrophy due to his altered blood supply. He has questionable mild claudication symptoms and does not feel further evaluation is needed at this time. - Monitor, discussed that he could be referred t o vascular surgery should his possible claudication sxs worsen Patient Education of Treatment Plan: Patient ind icates readiness to learn, verbalizes understanding, agreement and satisfac tion with the treatment plan. All questions answered to his apparent satisfact ion. 40 min spent reviewing lab r esults, patient history and examination, discussing treatment plan and EHR documentation. Patient seen by and discussed with Dr. Payam benjamin agrees with assessment and plan. Ralph Guerrero MD PhD Hematology/Oncology Fellow /shalonda/ RALPH GUERRERO MD HEM/ONC FELLOW PHYSICIAN Signed: 01/24/2021 10:48 Receipt Acknowledged By: 01/24/2021 15:33 /shalonda/ CARTER BARRERA Chief, Heme/Onc 05/21/2021 ADDENDUM STATUS: COMPLETED I called the pt and informed him about t he slight progression in the lymphoma. 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 In 02/2016 that pt had left hip pain that prompt ed starting therapy. The lymph nodes are still much smaller compared to the PET scan from 02/2016 when the pt was started on RCVP chemo. Regarding the RLL lung cancer monitoring s/p res ection and adjuvant chemo (in 04/2020), there is a small lesion in the apex of the right lung that is growing very slowly. I talked to Dr. Hernan Rodriguez it has been there since 02/2020, which is one month after his lung surgery. The solid component is growing slowly, it is still not amenable to bio psy. There is an airway that is going underneath it that may allow a biopsy may be [facility] About the possible right RCC, the CT reader did not mention it this time. I think I can see the lesion on series 5, image 36 6. It is a little larger than before. I will leave the man agement of that lesion to Dr. Louis. I assume that it can be still monitored. I will schedule the pt in the PA phone visit in [address] few days before. Zahraa and I can discuss the CT before the phone visit. /rubén Sanford MD HEMATOLOGY/ONCOLOGY STAFF Signed: 05/21/2021 15:47 Receipt Acknowledged By: 05/24/2021 14:55 /shalonda/ VERONICA LOUIS MD UROLOGY STAFF 05/24/2021 ADDENDUM STATUS: COMPLETED Thank you Dr. Enriquez, since the pt is going to be under [facility] for his lymphoma and lung cancer, we will monitor his right renal lesion and refer back to urology when it is = or > 2 cm. /shalonda/ Sheila Sanford MD HEMATOLOGY/ONCOLOGY STAFF Signed: 05/24/2021 21:10 Jan 24, 2021 10:06 INTERNAL MEDICINE OUTPATIENT NOTE: JONATAN SIFUENTES [facility] TITLE: MEDICINE CLINIC NURSING NOTE STANDARD TITLE: INTERNAL MEDICINE OUTPATIENT NOT E DATE OF NOTE: JAN 24, 2021@10:06 ENTRY DATE: JAN 24, 2021@10:06:50 AUTHOR: JODY SIFUENTES EXP COSIGNER: URGENCY: STATUS: COMPLETED TYPE OF VISIT: Appointment Check In Type of appointment: In-person appointment REASON FOR VISIT: Scheduled Appointment ALLERGIES: Patient has answered NKA VITAL SIGNS: Blood Pressure: 123/78 (01/24/2021 10:05) Pulse: 86 (01/24/2021 10:05) Respiration: 14 (01/24/2021 10:05) Temperature: 98.2 F [36.8 C] (01/24/2021 10:05) Weight: 193.5 lb [88.0 kg] (01/24/2021 10:05) Height: 68 in [172.7 cm] (11/12/2020 10:17) BMI: 29.5 O2 Sat: 98 (01/24/2021 10:05) Pain: 0 (01/24/2021 10:05) PAIN SCREEN: Patient is not having significant pain that the y wish to discuss with their provider today. MEDICATION Over the Counter/Herbal Medications: The patient states that they take some outside medications and/or herbals. /rubén SIFUENTES LPN LICENSED PRACTICAL NURSE Signed: 01/24/2021 10:07
--- OUTSIDE RECORDS SUMMARY | 2021-11-18 09:18 | XMS_ITS | Encounter Summary ---
:1945 Author Organization [facility] Address [address] [place] [address] Support Name Relationship Address Phone SILKE LOCKWOOD Unavailable [id number] [place] [phone] SILKE LOCKWOOD Unavailable [phone] [place] [phone] Insurance Providers: All historical and current Section [...] Victor [place] Jun 10, [id number] [facility] (WNR) ADVANTAGE (WNR) 2019 8 [id number] [phone] ,ANDER Bennett [place] Jun 10, [id number] [facility] (WNR) ADVANTAGE (WNR) 2018 3 [id number] [phone] ,ANDER Bennett Selected Encounter This section includes the information on record at [place] for the Encounter. Date/Time Encounter Type Encounter Description Reason Provider Source Mar 16, 2021 01:07 Outpatient Encounter TELEPHONE TRIAGE PM IHE Encounter Template Text not used by MT Plan of Treatment: Future Appointments (+ 6 months) and Future Tests (+/- 45 days) The Plan of Treatment section includes future care activities for the patient from all [place] treatmentfacilities. This section includes future appointments and future orders which are active, pending orscheduled.Future Appointments This section includes appointments that were scheduled to occur 6 months from the date of the Encounter, up to a maximum of 20 appointments. The data comes from all [place] treatment facilities. Appointment Date/Time Appointment Type Appointment Facili ty Name Mar 25, 2021 10:30 AM AMBULATORY - MEDICINE [facility] May 16, 2021 09:30 AM AMBULATORY - MEDICINE [facility] May 16, 2021 10:00 AM AMBULATORY - NONE [facility] May 20, 2021 08:15 AM AMBULATORY - MEDICINE [facility] May 20, 2021 08:30 AM AMBULATORY - MEDICINE [facility] May 20, 2021 10:30 AM AMBULATORY - MEDICINE [facility] May 24, 2021 03:00 PM AMBULATORY - SURGERY [facility] May 26, 2021 03:30 PM AMBULATORY - MEDICINE [facility] Jun 10, 2021 09:30 AM AMBULATORY - NONE [facility] Jun 10, 2021 10:00 AM AMBULATORY - NONE [facility] Jun 10, 2021 01:00 PM AMBULATORY - PSYCHIATRY [facility] Jun 23, 2021 09:00 AM AMBULATORY - SURGERY [facility] Jun 29, 2021 10:30 AM AMBULATORY - MEDICINE [facility] July 13, 2021 10:15 AM AMBULATORY - MEDICINE [facility] July 18, 2021 07:00 AM AMBULATORY - NONE [facility] Aug 22, 2021 10:28 AM AMBULATORY - MEDICINE [facility] Social History: Smoking Status (Most current) and Tobacco Use (All prior to encounter date) This section includes the most current, and the historical, smoking and tobacco-related health factors from the [place] facility where the Encounter took place.Current Smoking Status This section includes the most current smoking, or tobacco-related health factor, from the [place] facility where the Encounter took place. Date/Time Current Smoking Status Comment Facility Jul 05, 2020 06:42 PM VA-TOBACCO FORMER USER [facility] Tobacco Use History This section includes a history of the smoking, or tobacco- related health factors, that were collected on or before the date of the Encounter. The data comes from the [place] facility where the Encounter took place. Date/Time Smoking Status/Tobacco Use Comment [facility] it Jan 09, 2018 02:01 PM VA-TOBACCO FORMER USER [facility] Jan 09, 2018 02:01 PM [...] ALL of a patient's completed or amended [place] Advance and Rescinded Directives. The entries below indicate that a directive exists for the patient, but an actual copy is not included with this document. The data comes from all [place] facilities. Date Advance Directives Provider Source July 24, 2021 ADVANCE DIRECTIVE PAPA LEWIS [facility] July 24, 2021 ADVANCE DIRECTIVE DISCUSSION PAPA LEWIS [facility] Encounter Notes: All associated encounter notes This section contains the clinical notes associated to the Encounter. Date/Time Encounter Note(s) Provider Source Mar 16, 2021 01:07 PM REPORT OF CONTACT: NIXON BROWN [facility] LOCAL TITLE: PATIENT CONTACT NOTE STANDARD TITLE: REPORT OF CONTACT DATE OF NOTE: MAR 16, 2021@13:07 ENTRY DATE: MAR 16, 2021@13:07:37 AUTHOR: NIXON BROWN EXP COSIGNER: URGENCY: STATUS: COMPLETED PATIENT CONTACT NOTE Has ADDENDA Primary Care Call Center Home Care Consultant Teacher of [facility] Sharath cee called with request for return fax. Other: Request for signature and fax back to [facility], (will be Faxing again today) re: 485 for HC orders PLEASE FAX BACK DIANE Please Follow-up Phone number verified as correct. ##[phone] Marah @ [facility], v/m secure ok for messages thank you /shalonda/ NIXON BROWN LPN LICENSED PRACTICAL NURSE [facility] Signed: 03/16/2021 13:08 Receipt Acknowledged By: 03/16/2021 15:14 /rubén MANCERA RN RN 03/18/2021 17:04 /shalonda/ LIAM MEJIA MD STAFF PHYSICIAN 03/18/2021 ADDENDUM STATUS: COMPLETED Fax located, signed and put in box for return fa x. /rubén MEJIA MD STAFF PHYSICIAN Signed: 03/18/2021 17:05 Receipt Acknowledged By: * AWAITING SIGNATURE * MARIA LUZ MANCERA
--- OUTSIDE RECORDS SUMMARY | 2021-11-18 09:18 | XMS_ITS | Encounter Summary ---
:1945 Author Organization [facility] Address [address] [place] [address] Support Name Relationship Address Phone SILKE LOCKWOOD Unavailable [id number] [place] [phone] SILKE LOCKWOOD Unavailable [id number] [place] [phone] Insurance Providers: All historical and current Section [...] [place] Jun 10, [id number] [facility] (WNR) ADVANTAGE (WNR) 2019 8 [id number] [phone] ,ANDER Bennett [place] Jun 10, [id number] ATIENT [facility] (WNR) ADVANTAGE (WNR) 2018 3 [id number] [phone] ,ANDER Bennett Selected Encounter This section includes the information on record at [place] for the Encounter. Date/Time Encounter Type Encounter Description Reason Provider Source Jan 28, 2021 09:25 Outpatient Encounter PRIMARY CARE/MEDICINE AM IHE Encounter Template Text not used by ND Plan of Treatment: Future Appointments (+ 6 months) and Future Tests (+/- 45 days) The Plan of Treatment section includes future care activities for the patient from all [place] treatmentfacilities. This section includes future appointments and future orders which are active, pending orscheduled.Future Appointments This section includes appointments that were scheduled to occur 6 months from the date of the Encounter, up to a maximum of 20 appointments. The data comes from all [place] treatment facilities. Appointment Date/Time Appointment Type Appointment Facili ty Name Mar 25, 2021 10:30 AM AMBULATORY - MEDICINE [facility] May 16, 2021 09:30 AM AMBULATORY - MEDICINE [facility] May 16, 2021 10:00 AM AMBULATORY - NONE [facility] May 20, 2021 08:15 AM AMBULATORY - MEDICINE [facility] May 20, 2021 08:30 AM AMBULATORY - MEDICINE [facility] May 20, 2021 10:30 AM AMBULATORY - MEDICINE [facility] May 24, 2021 03:00 PM AMBULATORY - SURGERY [facility] May 26, 2021 03:30 PM AMBULATORY - MEDICINE [facility] Jun 10, 2021 09:30 AM AMBULATORY - NONE [facility] Jun 10, 2021 10:00 AM AMBULATORY - NONE [facility] Jun 10, 2021 01:00 PM AMBULATORY - PSYCHIATRY [facility] Jun 23, 2021 09:00 AM AMBULATORY - SURGERY [facility] Jun 29, 2021 10:30 AM AMBULATORY - MEDICINE [facility] July 13, 2021 10:15 AM AMBULATORY - MEDICINE [facility] July 18, 2021 07:00 AM AMBULATORY - NONE [facility] Lab Results: +/- 30 days of the encounter This section includes the Chemistry and Hematology Lab Results on record with ND for the patient. Radiology Reports and Pathology Reports are provided separately, in subsequent sections.Lab Results This section contains the Chemistry/Hematology Results that were resulted 30 days before or 30 daysafter the date of the Encounter. Date/Time Source Result Type Result - Unit Interpretation Reference Range Comment Jan 19, 2021 09:05 AM [facility] POC CREATININE Specim en Type: BLOOD No comment enter ed. Ordering Provid er: LIAM MEJIA Report Released Date/Time: Jan 19, 2021 09:06 AM Reporting Lab: [facility] [address] [facility] [address] Performing Lab: [facility] [address] [facility] [address] POC CREATININE 1.4 0.6-1.3 Jan 19, 2021 08:45 AM [facility] UREA NITROGEN Specim en Type: PLASMA No comment enter ed. Ordering Provid er: SHELLY GUERRERO Report Released Date/Time: Oct 25, 2020 10:49 AM Reporting Lab: [facility] [address] [facility] [address] Performing Lab: [facility] [address] [facility] [address] UREA NITROGEN 19 8-26 Jan 19, 2021 [facility] CREATININE(INCLUDES EGFR) Sp ecimen Type: PLASMA 08:45 AM No comment enter ed. Ordering Provid er: SHELLY GUERRERO Report Released Date/Time: Oct 25, 2020 10:49 AM Reporting Lab: [facility] [address] [facility] [address] Performing Lab: [facility] [address] CREATININE 1.2 0.7-1.2 ESTIMATED GFR(eGFR) 59 L >60 Jan 19, 2021 [facility] COMPREHENSIVE METABOLIC Spec imen Type: PLASMA 08:45 AM PANEL+MG No comment enter ed. Ordering Provid er: SHELLY GUERRERO Report Released Date/Time: Oct 25, 2020 10:49 AM Reporting Lab: [facility] [address] Performing Lab: [facility] [address] [facility] [address] CREATININE 1.2 0.7-1.2 UREA NITROGEN 19 8-26 GLUCOSE 97 74-100 SODIUM 141 136-145 POTASSIUM 4.4 3.5-5.1 CHLORIDE 108 H 98-107 CO2 26 22-29 CALCIUM 9.2 8.4-10.2 PROTEIN,TOTAL 6.5 6.0-8.3 ALBUMIN 3.9 3.5-5.2 BILIRUBIN, TOTAL 0.5 0.2-1.2 MAGNESIUM 1.8 1.6-2.6 ANION GAP 7 5-15 ALKALINE PHOSPHATASE 76 40-150 ALT/SGPT 22 <55 AST/SGOT 18 <34 ESTIMATED GFR(eGFR) 59 L >60 Jan 19, 2021 08:45 AM [facility] CBC & DIFF Specim en Type: BLOOD Comment: Automa kerrie Differential Performed Ordering Provid er: SHELLY GUERRERO Report Released Date/Time: Oct 25, 2020 10:49 AM Reporting Lab: [facility] [address] [facility] [address] Performing Lab: [facility] [address] [facility] [address] WBC 6.68 4.0-11.0 RBC 3.83 L 4.6-6.2 [...] IG(META,MYELO,PRO) 0.1 ABS IMMATURE GRAN 0.01 0-0.1 Social History: Smoking Status (Most current) and Tobacco Use (All prior to encounter date) This section includes the most current, and the historical, smoking and tobacco-related health factors from the [place] facility where the Encounter took place.Current Smoking Status This section includes the most current smoking, or tobacco-related health factor, from the [place] facility where the Encounter took place. Date/Time Current Smoking Status Comment Facility Jul 05, 2020 06:42 PM VA-TOBACCO FORMER USER [facility] Tobacco Use History This section includes a history of the smoking, or tobacco- related health factors, that were collected on or before the date of the Encounter. The data comes from the [place] facility where the Encounter took place. Date/Time Smoking Status/Tobacco Use Comment [facility] Jan 09, 2018 02:01 PM VA-TOBACCO FORMER USER [facility] Jan 09, 2018 02:01 PM [place]-TOBACCO QUIT 5 TO < 15 YRS [facility] Apr 16, 2017 10:17 AM FORMER TOBACCO USER 7Y OR GREATER [facility] Jun 09, 2016 10:03 AM FORMER TOBACCO USER 7Y OR GREATER [facility] May 06, 2015 08:19 AM FORMER TOBACCO USER 7Y OR GREATER [facility] Advance Directives: All historical and current Section Date Range: From patient's date of to the date document was created. This section includes ALL of a patient's completed or amended [place] Advance and Rescinded Directives. The entries below indicate that a directive exists for the patient, but an actual copy is not included with this document. The data comes from all [place] facilities. Date Advance Directives Provider Source July 24, 2021 ADVANCE DIRECTIVE PAPA LEWIS [facility] July 24, 2021 ADVANCE DIRECTIVE DISCUSSION PAPA LEWIS [facility] Radiology Reports: +/- 30 days of [...] the Encounter. The data comes from all [place] treatment facilities. Date/Time Radiology Report Provider Source Jan 19, 2021 09:[address] (CAP) CHEST/ABD/PELVIS (P): CÉSAR ERNST [facility] ANDER LOCKWOOD [id number] -[birth year] 8 M Exm Date: JAN 19, 2021@09:07 Req Phys: SHELLY GUERRERO Pat Loc: [facility] M ONC LUIKART 3V (Req'g Img Loc: CT IMAGING Service: Unknown (Case [id number] COMPLETE) CT (CAP) CHEST W CONTRAST ( CT Detailed) CPT:57466 Contrast Media : Non-ionic Iodinated Reason for Study: Interval imaging for follicul ar lymphoma and NSCLC (Case [id number] COMPLETE) CT (CAP) ABDOMEN/PELVIS W C ONTRAS(CT Detailed) CPT:65995 Contrast Media : Non-ionic Iodinated Clinical History: [...] 19, 2021 Date Verified: JAN 19, 2021 Research Tech E-Sig:/ES/NADYA ERNST MD Report: Contrast-enhanced chest abdomen [...] Primary Interpreting Staff: NADYA ERNST MD, RADIOLOGIST (Research Tech) /[facility] Encounter Notes: All associated encounter notes This section contains the clinical notes associated to the Encounter. Date/Time Encounter Note(s) Provider Source Jan 28, 2021 09:25 AM HOME HEALTH REFERRAL NOTE: ARELY HU [facility] LOCAL TITLE: [facility] HOME HEALTH CARE STANDARD TITLE: HOME HEALTH REFERRAL NOTE DATE OF NOTE: JAN 28, 2021@09:25 ENTRY DATE: JAN 28, 2021@09:25:37 AUTHOR: ARELY HU EXP COSIGNER: URGENCY: STATUS: COMPLETED HOME HEALTH CARE CERTIFICATION AND PLAN OF CARE SIGNED BY: Dr. mejia.. [facility] health [facility] Certification period From: [id number] To: [id number] /shalonda/ ARELY HU LEAD EXPLOSIVES DETONATOR Signed: 01/28/2021 09:26
--- OUTSIDE RECORDS SUMMARY | 2021-11-18 09:19 | XMS_ITS | Encounter Summary ---
:1945 Author Organization [facility] Address [address] [place] [address] Support Name Relationship Address Phone SILKE LOCKWOOD Unavailable [id number] [place] [phone] SILKE LOCKWOOD Unavailable [phone] [id number] [place] [phone] Insurance Providers: All historical and current Section [...] Victor [place] Jun 10, [id number] [facility] (WNR) ADVANTAGE (WNR) 2019 8 [id number] [phone] ,ANDER Bennett [place] Jun 10, [id number] ATIENT [facility] (WNR) ADVANTAGE (WNR) 2018 3 [id number] [phone] ,ANDER Bennett Selected Encounter This section includes the information on record at [place] for the Encounter. Date/Time Encounter Type Encounter Description Reason Provider Source Dec 08, 2020 10:41 Outpatient Encounter PRIMARY CARE/MEDICINE AM IHE Encounter [...] Date/Time Appointment Type Appointment Facili ty Name Dec 27, 2020 11:15 AM AMBULATORY - MEDICINE [facility] CS Jan 18, 2021 07:00 AM AMBULATORY - NONE [facility] Jan 19, 2021 08:30 AM AMBULATORY - MEDICINE [facility] CS Jan 19, 2021 09:00 AM AMBULATORY - NONE [facility] Jan 24, 2021 10:00 AM AMBULATORY - MEDICINE [facility] CS Mar 25, 2021 10:30 AM AMBULATORY - MEDICINE [facility] CS May 16, 2021 09:30 AM AMBULATORY - MEDICINE [facility] CS May 16, 2021 10:00 AM AMBULATORY - NONE [facility] May 20, 2021 08:15 AM AMBULATORY - MEDICINE [facility] CS May 20, 2021 08:30 AM AMBULATORY - MEDICINE [facility] CS May 20, 2021 10:30 AM AMBULATORY - MEDICINE [facility] CS May 24, 2021 03:00 PM AMBULATORY - SURGERY [facility] S May 26, 2021 03:30 PM AMBULATORY - MEDICINE [facility] Lab Results: +/- 30 days of [...] Result - Unit Interpretation Reference Range Comment Nov 23, 2020 [facility] CREATININE(INCLUDES EGFR) Sp ecimen Type: PLASMA 09:15 AM No comment enter ed. Ordering Provid er: LIAM MEJIA Report Released Date/Time: Jun 20, 2019 09:58 AM Reporting Lab: [facility] [address] [facility] [address] Performing Lab: [facility] [address] [facility] [address] CREATININE 1.2 0.7-1.2 ESTIMATED GFR(eGFR) 59 L >60 Nov 23, 2020 09:15 AM [facility] GLUCOSE Specim en Type: PLASMA No comment enter ed. Ordering Provid er: LIAM MEJIA Report Released Date/Time: Jun 20, 2019 09:58 AM Reporting Lab: [facility] [address] [facility] [address] Performing Lab: [facility] [address] [facility] [address] GLUCOSE 79 74-100 Nov 23, 2020 09:15 AM [facility] CBC Specim en Type: BLOOD No comment enter ed. Ordering Provid er: LIAM MEJIA Report Released Date/Time: Jun 20, 2019 09:58 AM Reporting Lab: [facility] [address] [place] [facility] [address] Performing Lab: [facility] [address] [facility] [address] WBC 6.20 4.0-11.0 RBC 3.53 L 4.6-6.2 HGB 11.1 L 13.5-17.9 HCT 33.5 L 41-54 MCV 94.9 80-100 MCH 31.4 27-33 MCHC 33.1 32.0-37.5 PLT 226 150-400 MPV 8.5 7.4-10.4 RDW 12.9 11.5-14.5 Nov 23, 2020 09:15 [facility] ELECTROLYTES/ANION GAP Sp ecimen Type: PLASMA AM No comment enter ed. Ordering Provid er: LIAM MEJIA Report Released Date/Time: Jun 20, 2019 09:58 AM Reporting Lab: [facility] [address] [facility] [address] Performing Lab: [facility] [address] [facility] [address] SODIUM 141 136-145 POTASSIUM 4.0 3.5-5.1 CHLORIDE 105 98-107 CO2 26 22-29 ANION GAP 10 5-15 Nov 23, 2020 09:15 AM [facility] HEMOGLOBIN A1C Specim en Type: BLOOD No comment enter ed. Ordering Provid er: LIAM MEJIA Report Released Date/Time: Jun 20, 2019 09:58 AM Reporting Lab: [facility] [address] [facility] [address] Performing Lab: [facility] [address] [facility] [address] HEMOGLOBIN A1C 5.2 4.0-6.0 Nov 23, 2020 09:15 AM [facility] AST/SGOT Specim en Type: PLASMA No comment enter ed. Ordering Provid er: LIAM MEJIA Report Release d Date/Time: Jun 20, 2019 09:58 AM Reporting Lab: [facility] [address] [facility] [address] Performing Lab: [facility] [address] [facility] [address] AST/SGOT 14 <34 Nov 23, 2020 09:15 AM [facility] ALT/SGPT Specim en Type: PLASMA No comment enter ed. Ordering Provid er: LIAM MEJIA Report Released Date/Time: Jun 20, 2019 09:58 AM Reporting Lab: [facility] [address] [facility] [address] Performing Lab: [facility] [address] [place] [facility] [address] ALT/SGPT 16 <55 Nov 23, 2020 09:15 AM [facility] PSA Specim en Type: SERUM No comment enter ed. Ordering Provid er: LIAM MEJIA Report Released Date/Time: Jun 20, 2019 09:58 AM Reporting Lab: [facility] [address] [facility] [address] Performing Lab: [facility] [address] [facility] [address] PSA 1.12 <4.00 Nov 23, 2020 09:15 [facility] TSH W/REFLEX TO FREE Spec imen Type: PLASMA AM T4 No comment enter ed. Ordering Provid er: LIAM MEJIA Report Released Date/Time: Jun 20, 2019 09:58 AM Reporting Lab: [facility] [address] [place] [facility] [address] Performing Lab: [facility] [address] [facility] [address] TSH 1.77 0.35-4.94 Nov 23, 2020 09:15 [facility] LIPID PANEL,FASTING Speci men Type: PLASMA AM No comment enter ed. Ordering Provid er: LIAM MEJIA Report Released Date/Time: Jun 20, 2019 09:58 AM Reporting Lab: [facility] [address] [place] [facility] [address] Performing Lab: [facility] [address] [place] [facility] [address] CHOLESTEROL 140 <199 TRIGLYCERIDE 99 <149 .HDL 51 >40 LDL CALCULATION 69 <99 VLDL CALCULATION 20 <29 NON HDL CHOLESTEROL 89 <129 Social History: Smoking Status (Most current) and [...] 2020 06:42 PM VA-TOBACCO FORMER USER [facility] Tobacco Use History This section includes a history of the smoking, or tobacco- related health factors, that were collected on or before the date of the Encounter. The data comes from the [place] facility where the Encounter took place. Date/Time Smoking Status/Tobacco Use Comment Facil ity Jan 09, 2018 02:01 PM VA-TOBACCO FORMER USER [facility] Jan 09, 2018 02:01 PM VA-TOBACCO QUIT 5 TO < 15 YRS [facility] Apr 16, 2017 10:17 AM FORMER TOBACCO USER 7Y OR GREATER [facility] Jun 09, 2016 10:03 AM FORMER TOBACCO USER 7Y OR GREATER [facility] May 06, 2015 08:19 AM FORMER TOBACCO USER 7Y OR GREATER [facility] Advance Directives: All historical and [...] July 24, 2021 ADVANCE DIRECTIVE PAPA LEWIS [facility] July 24, 2021 ADVANCE DIRECTIVE DISCUSSION PAPA LEWIS [facility] Encounter Notes: All associated encounter notes This section contains the clinical notes associated to the Encounter. Date/Time Encounter Note(s) Provider Source Dec 08, 2020 10:41 AM HOME HEALTH REFERRAL NOTE: AZEB MCINTYRE [facility] LOCAL TITLE: [facility] HOME HEALTH CARE STANDARD TITLE: HOME HEALTH REFERRAL NOTE DATE OF NOTE: DEC 08, 2020@10:41 ENTRY DATE: DEC 08, 2020@10:41:13 AUTHOR: AZEB MCINTYRE EXP COSIGNER: URGENCY: STATUS: COMPLETED HOME HEALTH CARE CERTIFICATION AND PLAN OF CARE SIGNED BY: Dr. Liam Mejia for [facility] Certification period From: 11/13/20 To: 01/11/21 /shalonda/ AZEB MCINTYRE ADVANCED SUPERVISOR/PORT DIRECTOR Signed: 12/08/2020 10:42
--- OUTSIDE RECORDS SUMMARY | 2021-11-18 09:19 | XMS_ITS | Encounter Summary ---
:1945 Author Organization [facility] Address [address] [place] [address] Support Name Relationship Address Phone SILKE LOCKWOOD Unavailable [id number] [place] [phone] SIKLE LOCKWOOD Unavailable [phone] [id number] [place] [phone] Insurance Providers: All historical and current Section [...] [place] Jun 10, [id number] [facility] ([facility] AD[facility]ANT[facility] (WNR) 2020 8 [id number] [phone] ,ANDER Bennett [place] Jun 10, [id number] ATIENT [facility] (WNR) ADVANTAGE (WNR) 2018 3 [id number] [phone] ,ANDER Bennett Selected Encounter This section includes the information on record at [place] for the Encounter. Date/Time Encounter Type Encounter Description Reason Provider Source Jan 19, 2021 07:53 Outpatient Encounter PRIMARY CARE/MEDICINE AM IHE Encounter Template Text not used by [place] Plan of Treatment: Future Appointments (+ 6 months) and Future Tests (+/- 45 days) The Plan of Treatment section includes future care activities for the patient from all [place] treatmentfacilities. This section includes future appointments and future orders which are active, pending orscheduled.Future Appointments This section includes appointments that were scheduled to occur 6 months from the date of the Encounter, up to a maximum of 20 appointments. The data comes from all [place] treatment facilities. Appointment Date/Time Appointment Type Appointment Facili ty Name Jan 24, 2021 10:00 AM AMBULATORY - MEDICINE [facility] CS Mar 25, 2021 10:30 AM AMBULATORY - MEDICINE [facility] CS May 16, 2021 09:30 AM AMBULATORY - MEDICINE [facility] CS May 16, 2021 10:00 AM AMBULATORY - NONE [facility] May 20, 2021 08:15 AM AMBULATORY - MEDICINE [facility] CS May 20, 2021 08:30 AM AMBULATORY - MEDICINE [facility] CS May 20, 2021 10:30 AM AMBULATORY - MEDICINE [facility] CS May 24, 2021 03:00 PM AMBULATORY - SURGERY [facility] S May 26, 2021 03:30 PM AMBULATORY - MEDICINE [facility] CS Jun 10, 2021 09:30 AM AMBULATORY - NONE [facility] Jun 10, 2021 10:00 AM AMBULATORY - NONE [facility] Jun 10, 2021 01:00 PM AMBULATORY - PSYCHIATRY [facility] Jun 23, 2021 09:00 AM AMBULATORY - SURGERY [facility] S Jun 29, 2021 10:30 AM AMBULATORY - MEDICINE [facility] CS July 13, 2021 10:15 AM AMBULATORY - MEDICINE [facility] CS July 18, 2021 07:00 AM AMBULATORY - NONE [facility] Lab Results: +/- 30 days of the encounter This section includes the Chemistry and Hematology Lab Results on record with [place] for the patient. Radiology Reports and Pathology Reports are provided separately, in subsequent sections.Lab Results This section contains the Chemistry/Hematology Results that were resulted 30 days before or 30 daysafter the date of the Encounter. Date/Time Source Result Type Result - Unit Interpretation Reference Range Comment Jan 19, 2021 09:05 AM [facility] POC CREATININE Specim en Type: BLOOD No comment enter ed. Ordering Provid er: LIAM MEJIA Report Released Date/Time: Jan 19, 2021 09:06 AM Reporting Lab: [facility] [address] [employer] [address] Performing Lab: [facility] [address] [employer] [address] POC CREATININE 1.4 0.6-1.3 Jan 19, 2021 08:45 AM [facility] UREA NITROGEN Specim en Type: PLASMA No comment enter ed. Ordering Provid er: SHELLY GUERRERO Report Released Date/Time: Oct 25, 2020 10:49 AM Reporting Lab: [facility] [address] [facility] [address] Performing Lab: [facility] [address] [facility] [address] UREA NITROGEN 19 8-26 Jan 19, 2021 [facility] CREATININE(INCLUDES EGFR) Sp ecimen Type: PLASMA 08:45 AM No comment enter ed. Ordering Provid er: SHELLY GUERRERO Report Released Date/Time: Oct 25, 2020 10:49 AM Reporting Lab: [facility] [address] [facility] [address] Performing Lab: [facility] [address] [facility] [address] CREATININE 1.2 0.7-1.2 ESTIMATED GFR(eGFR) 59 L >60 Jan 19, 2021 [facility] COMPREHENSIVE METABOLIC Spec imen Type: PLASMA 08:45 AM PANEL+MG No comment enter ed. Ordering Provid er: SHELLY GUERRERO Report Released Date/Time: Oct 25, 2020 10:49 AM Reporting Lab: [facility] [address] [facility] [address] Performing Lab: [facility] [address] [facility] [address] CREATININE 1.2 0.7-1.2 UREA NITROGEN 19 8-26 GLUCOSE 97 74-100 SODIUM 141 136-145 POTASSIUM 4.4 3.5-5.1 CHLORIDE 108 H 98-107 CO2 26 22-29 CALCIUM 9.2 8.4-10.2 PROTEIN,TOTAL 6.5 6.0-8.3 ALBUMIN 3.9 3.5-5.2 BILIRUBIN, TOTAL 0.5 0.2-1.2 MAGNESIUM 1.8 1.6-2.6 ANION GAP 7 5-15 ALKALINE PHOSPHATASE 76 40-150 ALT/SGPT 22 <55 AST/SGOT 18 <34 ESTIMATED GFR(eGFR) 59 L >60 Jan 19, 2021 08:45 AM [facility] CBC & DIFF Specim en Type: BLOOD Comment: Automa kerrie Differential Performed Ordering Provid er: SHELLY GUERRERO Report Released Date/Time: Oct 25, 2020 10:49 AM Reporting Lab: [facility] [address] [facility] [address] Performing Lab: [facility] [address] [facility] [address] WBC 6.68 4.0-11.0 RBC 3.83 L 4.6-6.2 [...] smoking and tobacco-related health factors from the [place] facility where the Encounter took place.Current Smoking Status This section includes the most current smoking, or tobacco-related health factor, from the [place] facility where the Encounter took place. Date/Time Current Smoking Status Comment Facility Jul 05, 2020 06:42 PM VA-TOBACCO FORMER USER [facility] Tobacco Use History This section includes a history of the smoking, or tobacco- related health factors, that were collected on or before the date of the Encounter. The data comes from the [place] facility where the Encounter took place. Date/Time Smoking Status/Tobacco Use Comment [facility] Jan 09, 2018 02:01 PM VA-TOBACCO FORMER USER [facility] Jan 09, 2018 02:01 PM VA-TOBACCO QUIT 5 TO < 15 YRS [facility] Apr 16, 2017 10:17 AM FORMER TOBACCO USER 7Y OR GREATER [facility] Jun 09, 2016 10:03 AM FORMER TOBACCO USER 7Y OR GREATER [facility] May 06, 2015 08:19 AM FORMER TOBACCO USER 7Y OR GREATER [facility] Advance Directives: All historical and current Section Date Range: From patient's date of to the date document was created. This section includes ALL of a patient's completed or amended [place] Advance and Rescinded Directives. The entries below indicate that a directive exists for the patient, but an actual copy is not included with this document. The data comes from all [place] facilities. Date Advance Directives Provider Source July 24, 2021 ADVANCE DIRECTIVE DISCUSSION PAPA LEWIS [facility] July 24, 2021 ADVANCE DIRECTIVE PAPA LEWIS [facility] Radiology Reports: +/- 30 days of [...] the Encounter. The data comes from all [place] treatment facilities. Date/Time Radiology Report Provider Source Jan 19, 2021 09:[address] (CAP) CHEST/ABD/PELVIS (P): CÉSAR ERNST [facility] ANDER LOCKWOOD [id number] -[birth year] 8 M Exm Date: JAN 19, 2021@09:07 Req Phys: SHELLY GUERRERO Loc: [facility] M ONC [facility] 3V (Req'g Img Loc: CT IMAGING Service: Unknown (Case [id number] COMPLETE) CT (CAP) CHEST W CONTRAST ( CT Detailed) CPT:85622 Contrast Media : Non-ionic Iodinated Reason for Study: Interval imaging for follicul ar lymphoma and NSCLC (Case [id number] COMPLETE) CT (CAP) ABDOMEN/PELVIS W C ONTRAS(CT Detailed) CPT:04523 Contrast Media : Non-ionic Iodinated Clinical History: [...] 19, 2021 Date Verified: JAN 19, 2021 Mechanic General Operational Test E-Sig:/ES/NADYA ERNST MD Report: Contrast-enhanced chest abdomen [...] Primary Interpreting Staff: NADYA ERNST MD, RADIOLOGIST (Mechanic General Operational Test) /[facility] Encounter Notes: All associated encounter notes This section contains the clinical notes associated to the Encounter. Date/Time Encounter Note(s) Provider Source Jan 19, 2021 07:53 AM HOME HEALTH REFERRAL NOTE: ARELY HU [facility] LOCAL TITLE: [facility] HOME HEALTH CARE STANDARD TITLE: HOME HEALTH REFERRAL NOTE DATE OF NOTE: JAN 19, 2021@07:53 ENTRY DATE: JAN 19, 2021@07:54:31 AUTHOR: ARELY HU EXP COSIGNER: URGENCY: STATUS: COMPLETED HOME HEALTH CARE CERTIFICATION AND PLAN OF CARE SIGNED BY: Dr. mejia.. [facility] Certification period From: [id number] To: [id number] /shalonda/ ARELY HU LEAD ANALYST Signed: 01/19/2021 07:55
--- OUTSIDE RECORDS SUMMARY | 2021-11-18 09:19 | XMS_ITS | Encounter Summary ---
:1945 Author Organization [facility] Address [address] [place] [address] Support Name Relationship Address Phone SILKE LOCKWOOD Unavailable [id number] [address] SILKE LOCKWOOD Unavailable [id number] [address] Insurance Providers: All historical and current Section [...] Victor [place] Jun 10, [id number] MANDIE Pabon [facility] (WNR) ADVANTAGE (WNR) 2019 8 [id number] [phone] ,ANDER Bennett [place] Jun 10, [id number] LESTEROM P [facility] (WNR) ADVANTAGE (WNR) 2018 3 [id number] [phone] ,ANDER Bennett Selected Encounter This section includes the information on record at [place] for the Encounter. Date/Time Encounter Type Encounter Reason Provider Source Description Dec 27, 2020 IMMUNIZATION GENERAL INTERNAL ICD-10-CM Z23 LESLEYMATHEUS 11:15 AM ADMIN MEDICINE Encounter for K immunization with Provider Comments: Encounter for Immunization IHE Encounter Template Text not used by [place] Assessments - Encounter Diagnoses This section includes the primary and secondary diagnoses documented for the Encounter. Date/Time Primary/Secondary Diagnosis Name Provider Source Diagnosis Dec 27, 2020 PRIMARY Encounter for MATHEUS SUTTON [facility] 11:21 AM immunization K [facility] Plan of Treatment: Future Appointments (+ 6 months) and Future Tests (+/- 45 days) The Plan of Treatment section includes future care activities for the patient from all [place] [facility] This section includes future appointments and future orders which are active, pending orscheduled.Future Appointments This section includes appointments that were scheduled to occur 6 months from the date of the Encounter, up to a maximum of 20 appointments. The data comes from all [place] treatment facilities. Appointment Date/Time Appointment Type Appointment Facili ty Name Jan 18, 2021 07:00 AM AMBULATORY - NONE [facility] Jan 19, 2021 08:30 AM AMBULATORY - MEDICINE [facility] Jan 19, 2021 09:00 AM AMBULATORY - NONE [facility] Jan 24, 2021 10:00 AM AMBULATORY - MEDICINE [facility] Mar 25, 2021 10:30 AM AMBULATORY - MEDICINE [facility] May 16, 2021 09:30 AM AMBULATORY - MEDICINE [facility] May 16, 2021 10:00 AM AMBULATORY - NONE [facility] May 20, 2021 08:15 AM AMBULATORY - MEDICINE [facility] May 20, 2021 08:30 AM AMBULATORY - MEDICINE [facility] May 20, 2021 10:30 AM AMBULATORY - MEDICINE [facility] May 24, 2021 03:00 PM AMBULATORY - SURGERY [facility] S May 26, 2021 03:30 PM AMBULATORY - MEDICINE [facility] Jun 10, 2021 09:30 AM AMBULATORY - NONE [facility] Jun 10, 2021 10:00 AM AMBULATORY - NONE [facility] Jun 10, 2021 01:00 PM AMBULATORY - PSYCHIATRY [facility] Jun 23, 2021 09:00 AM AMBULATORY - SURGERY [facility] S Lab Results: +/- 30 days of the [...] Range Comment Jan 19, 2021 09:05 AM [facility] POC CREATININE Specim en Type: BLOOD No comment enter ed. Ordering Provid er: LIAM MEJIA Report Released Date/Time: Jan 19, 2021 09:06 AM Reporting Lab: [facility] [address] [facility] [address] Performing Lab: [facility] [address] [facility] [address] POC CREATININE 1.4 0.6-1.3 Jan 19, 2021 08:45 AM [facility] UREA NITROGEN Specim en Type: PLASMA No comment enter ed. Ordering Provid er: SHELLY GUERRERO Report Released Date/Time: Oct 25, 2020 10:49 AM Reporting Lab: [facility] [address] [facility] [address] Performing Lab: [facility] [address] [facility] [address] UREA NITROGEN 19 8-26 Jan 19, 2021 [facility] CREATININE(INCLUDES EGFR) Sp ecimen Type: PLASMA 08:45 AM No comment enter ed. Ordering Provid er: SHELLY GUERRERO Report Released Date/Time: Oct 25, 2020 10:49 AM Reporting Lab: [facility] [address] [facility] [address] Performing Lab: [facility] [address] [facility] [address] CREATININE 1.2 0.7-1.2 ESTIMATED GFR(eGFR) 59 L >60 Jan 19, 2021 [facility] COMPREHENSIVE METABOLIC Spec imen Type: PLASMA 08:45 AM PANEL+MG No comment enter ed. Ordering Provid er: SHELLY GUERRERO Report Released Date/Time: Oct 25, 2020 10:49 AM Reporting Lab: [facility] [address] [facility] [address] Performing Lab: [facility] [address] [facility] [address] CREATININE 1.2 0.7-1.2 UREA NITROGEN 19 8-26 GLUCOSE 97 74-100 SODIUM 141 136-145 POTASSIUM 4.4 3.5-5.1 CHLORIDE 108 H 98-107 CO2 26 22-29 CALCIUM 9.2 8.4-10.2 PROTEIN,TOTAL 6.5 6.0-8.3 ALBUMIN 3.9 3.5-5.2 BILIRUBIN, TOTAL 0.5 0.2-1.2 MAGNESIUM 1.8 1.6-2.6 ANION GAP 7 5-15 ALKALINE PHOSPHATASE 76 40-150 ALT/SGPT 22 <55 AST/SGOT 18 <34 ESTIMATED GFR(eGFR) 59 L >60 Jan 19, 2021 08:45 AM [facility] CBC & DIFF Specim en Type: BLOOD Comment: Automa kerrie Differential Performed Ordering Provid er: SHELLY GUERRERO Report Released Date/Time: Oct 25, 2020 10:49 AM Reporting Lab: [facility] [address] [facility] [address] Performing Lab: [facility] [address] [facility] [address] WBC 6.68 4.0-11.0 RBC 3.83 L 4.6-6.2 [...] IG(META,MYELO,PRO) 0.1 ABS IMMATURE GRAN 0.01 0-0.1 Immunizations: All administered on the encounter date This section contains immunizations associated to the Encounter. Immunization Series Date Issued Reaction Comments COVID-19 (LAN-Power), MRNA, LNP-S, 3 Dec 27, 2020 PFR; [id number]; 01/09/2021 PF, 30 MCG/0.3 ML DOSE INFLUENZA, INJECTABLE, Dec 27, 2020 QUADRIVALENT, PRESERVATIVE FREE Social History: Smoking Status (Most current) and [...] 2020 06:42 PM VA-TOBACCO FORMER USER [facility] Tobacco Use History This section includes a history of the smoking, or tobacco- related health factors, that were collected on or before the date of the Encounter. The data comes from the [place] facility where the Encounter took place. Date/Time Smoking Status/Tobacco Use Comment [facility] Jan 09, 2018 02:01 PM VA-TOBACCO FORMER USER MIN [facility] Jan 09, 2018 02:01 PM VA-TOBACCO QUIT 5 TO < 15 YRS [facility] Apr 16, 2017 10:17 AM FORMER TOBACCO USER 7Y OR GREATER [facility] Jun 09, 2016 10:03 AM FORMER TOBACCO USER 7Y OR GREATER [facility] May 06, 2015 08:19 AM FORMER TOBACCO USER 7Y OR GREATER [facility] Advance Directives: All historical and current Section Date Range: From patient's date of to the date document was created. This section includes ALL of a patient's completed or amended [place] Advance and Rescinded Directives. The entries below indicate that a directive exists for the patient, but an actual copy is not included with this document. The data comes from all [place] facilities. Date Advance Directives Provider Source July 24, 2021 ADVANCE DIRECTIVE PAPA LEWIS [facility] July 24, 2021 ADVANCE DIRECTIVE DISCUSSION PAPA LEWIS [facility] Radiology Reports: +/- 30 days of [...] AM CT (CAP) CHEST/ABD/PELVIS (P): CÉSAR ERNST [facility] ANDER LOCKWOOD RED [id number] -[birth year] 7 M Exm Date: JAN 19, 2021@09:07 Req Phys: SHELLY GUERRERO Loc: [facility] HE M ONC LUCHRISRT 3V (Req'g Img Loc: CT IMAGING Service: Unknown (Case [id number] COMPLETE) CT (CAP) CHEST W CONTRAST ( CT Detailed) CPT:34076 Contrast Media : Non-ionic Iodinated Reason for Study: Interval imaging for follicul ar lymphoma and NSCLC (Case 1493 COMPLETE) CT (CAP) ABDOMEN/PELVIS W C ONTRAS(CT Detailed) CPT:04142 Contrast Media : Non-ionic Iodinated Clinical History: [...] 19, 2021 Date Verified: JAN 19, 2021 Gauger Delivery E-Sig:/ES/NADYA ERNST MD Report: Contrast-enhanced chest abdomen [...] Primary Interpreting Staff: NADYA ERNST MD, RADIOLOGIST (Gauger Delivery) /RA[facility] Encounter Notes: All associated encounter notes This section contains the clinical notes associated to the Encounter. Date/Time Encounter Note(s) Provider Source Dec 27, 2020 11:21 AM IMMUNIZATION NOTE: MATHEUS SUTTON [facility] LOCAL TITLE: INFLUENZA VACCINATION STANDARD TITLE: IMMUNIZATION NOTE DATE OF NOTE: DEC 27, 2020@11:21 ENTRY DATE: DEC 27, 2020@11:21:47 AUTHOR: MATHEUS SUTTON EXP COSIGNER: URGENCY: STATUS: COMPLETED The patient was given the influenza VIS which li sts the benefits and side effects of the vaccine and which reviews the ris ks of not receiving the flu vaccine. The VIS was reviewed with the patient a nd they were given an opportunity to ask questions. The patient was pr ovided education on how to decrease the risk of influen za infection including social distancing and use of good hand hygiene. The patient denied any prior severe reaction to the flu vaccine or its components. The patient gave verb al consent to receive the vaccine. The seasonal influenza vaccine VIS given to the patient: VIS version date Oct. The patient received seasonal influenza vaccine today - Influenza, Quadrivalent preservative free (Afluria) 0.5 ml IM today in Left Deltoid. Dining Car Con[employer]: [employer]. Lot # and Expiration Date: Lot#:[id number], EXP : 09/08/2021 Administered by protocol/policy Complications: None /es/ MATHEUS SUTTON REGISTERED NURSE Signed: 12/27/2020 11:22 Dec 27, 2020 11:20 AM NURSING IMMUNIZATION NOTE: MATHEUS SUTTON [facility] LOCAL TITLE: VAAES OUTPATIENT COVID VACCINE ADM INISTRATION STANDARD TITLE: NURSING IMMUNIZATION NOTE DATE OF NOTE: DEC 27, 2020@11:20 ENTRY DATE: DEC 27, 2020@11:20:54 AUTHOR: MATHEUS SUTTON EXP COSIGNER: URGENCY: STATUS: COMPLETED The patient was given the VIS for this vaccine w [facility] lists the benefits and side effects of the vaccine and which reviews th e risks of the vaccine. The fact sheet was reviewed with the patient and the y were given an opportunity to ask questions. The patient denied any prior emily re reaction to this vaccine or its components or a severe allergic reaction suc h as anaphylaxis to any vaccine or to any injectable therapy. The patien t gave verbal consent to receive the vaccine. Additional Dose: The patient received Travel Notes COVID-19 Vaccine 0.3 ml IM. Series: Series 3 MVX (Manuf); Lot#; Exp Date: PFR; [id number]; 01/09 Administration Anatomic site: Right Deltoid Vaccine administered without complications. The patient was advised to remain in the facility for 15 minutes post vacc ination. The patient was given a completed COVID-19 vaccination record card, a copy of the [place] Side Effects and Adverse Events Reporting Fact Sheet and ins tructed on how to report any adverse reactions. Vaccine administered by policy/protocol. /shalonda/ MATHEUS SUTTON REGISTERED NURSE Signed: 12/27/2020 11:21
--- OUTSIDE RECORDS SUMMARY | 2021-11-18 09:19 | XMS_ITS | Encounter Summary ---
:1945 Author Organization [facility] Address [address] [place] [address] Support Name Relationship Address Phone SILKE LOKCWOOD Unavailable [phone] [address] SILKE LOCKWOOD Unavailable [phone] [address] Insurance Providers: All historical and current Section [...] Victor [place] Jun 10, [id number] M[address]IE Pabon [facility] (WNR) ADVANTAGE (WNR) 2019 8 [id number] [phone] ,ANDER Bennett [place] Jun 10, [id number] ASHLEYTROM P [facility]WNR) 2018 3 [id number] [phone] ,ANDER Bennett Selected Encounter This section includes the information on record at [place] for the Encounter. Date/Time Encounter Type Encounter Reason Provider Source Description Jan 19, 2021 OFFICE O/P EST ONCOLOGY/TUMOR ICD-10-CM C82.90 Hallie SIFUENTES 08:30 AM SF 10-19 MIN Follicular lymphoma, unspecified, unspecified site with Provider Comments: Lymphoma ([facility] [id number]) IHE Encounter Template Text not used by [place] Assessments - Encounter Diagnoses This section includes the primary and secondary diagnoses documented for the Encounter. Date/Time Primary/Secondary Diagnosis Name Provider Source Diagnosis Jan 19, 2021 PRIMARY Follicular JODY SIFUENTES [place] [facility] A 12:16 PM lymphoma, HCS unspecified, unspecified site Plan of Treatment: Future Appointments (+ 6 months) and Future Tests (+/- 45 days) The Plan of Treatment section includes future care activities for the patient from all [place] [facility]. This section includes future appointments and future orders which are active, pending orscheduled.Future Appointments This section includes appointments that were scheduled to occur 6 months from the date of the Encounter, up to a maximum of 20 appointments. The data comes from all [place] treatment facilities. Appointment Date/Time Appointment Type Appointment Facili ty Name Jan 24, 2021 10:00 AM AMBULATORY - MEDICINE [facility] Mar 25, 2021 10:30 AM AMBULATORY - MEDICINE [facility] May 16, 2021 09:30 AM AMBULATORY - MEDICINE [facility] May 16, 2021 10:00 AM AMBULATORY - NONE [facility] May 20, 2021 08:15 AM AMBULATORY - MEDICINE [facility] May 20, 2021 08:30 AM AMBULATORY - MEDICINE [facility] May 20, 2021 10:30 AM AMBULATORY - MEDICINE [facility] May 24, 2021 03:00 PM AMBULATORY - SURGERY [facility] May 26, 2021 03:30 PM AMBULATORY - MEDICINE [facility] Jun 10, 2021 09:30 AM AMBULATORY - NONE [facility] Jun 10, 2021 10:00 AM AMBULATORY - NONE [facility] Jun 10, 2021 01:00 PM AMBULATORY - PSYCHIATRY [facility] Jun 23, 2021 09:00 AM AMBULATORY - SURGERY [facility] S Jun 29, 2021 10:30 AM AMBULATORY - MEDICINE [facility] July 13, 2021 10:15 AM AMBULATORY - MEDICINE [facility] July 18, 2021 07:00 AM AMBULATORY - NONE [facility] Lab Results: +/- 30 days of the encounter This section includes the Chemistry and Hematology Lab Results on record with [place] for the patient. Radiology Reports and Pathology Reports are provided separately, in subsequent sections.Lab Results This section contains the Chemistry/Hematology Results that were resulted 30 days before or 30 daysafter the date of the Encounter. Date/Time Source Result Type Result - Unit Interpretation Reference Range Comment Jan 19, 2021 09:05 AM [facility] POC CREATININE Specim en Type: BLOOD No comment enter ed. Ordering Provid er: LIAM MEJIA Report Released Date/Time: Jan 19, 2021 09:06 AM Reporting Lab: [facility] [address] [facility] [address] Performing Lab: [facility] [address] [facility] [address] POC CREATININE 1.4 0.6-1.3 Jan 19, 2021 08:45 AM [facility] UREA NITROGEN Specim en Type: PLASMA No comment enter ed. Ordering Provid er: SHELLY GUERRERO Report Released Date/Time: Oct 25, 2020 10:49 AM Reporting Lab: [facility] [address] [facility] [address] Performing Lab: [facility] [address] [facility] [address] UREA NITROGEN 19 8-26 Jan 19, 2021 [facility] CREATININE(INCLUDES EGFR) Sp ecimen Type: PLASMA 08:45 AM No comment enter ed. Ordering Provid er: SHELLY GUERRERO Report Released Date/Time: Oct 25, 2020 10:49 AM Reporting Lab: [facility] [address] [facility] [address] Performing Lab: [facility] [address] [facility] [address] CREATININE 1.2 0.7-1.2 ESTIMATED GFR(eGFR) 59 L >60 Jan 19, 2021 [facility] COMPREHENSIVE METABOLIC Spec imen Type: PLASMA 08:45 AM PANEL+MG No comment enter ed. Ordering Provid er: SHELLY GUERRERO Report Released Date/Time: Oct 25, 2020 10:49 AM Reporting Lab: [facility] [address] [facility] [address] Performing Lab: [facility] [address] [facility] [address] CREATININE 1.2 0.7-1.2 UREA NITROGEN 19 8-26 GLUCOSE 97 74-100 SODIUM 141 136-145 POTASSIUM 4.4 3.5-5.1 CHLORIDE 108 H 98-107 CO2 26 22-29 CALCIUM 9.2 8.4-10.2 PROTEIN,TOTAL 6.5 6.0-8.3 ALBUMIN 3.9 3.5-5.2 BILIRUBIN, TOTAL 0.5 0.2-1.2 MAGNESIUM 1.8 1.6-2.6 ANION GAP 7 5-15 ALKALINE PHOSPHATASE 76 40-150 ALT/SGPT 22 <55 AST/SGOT 18 <34 ESTIMATED GFR(eGFR) 59 L >60 Jan 19, 2021 08:45 AM [facility] CBC & DIFF Specim en Type: BLOOD Comment: Automa kerrie Differential Performed Ordering Provid er: SHELLY GUERRERO Report Released Date/Time: Oct 25, 2020 10:49 AM Reporting Lab: [facility] [address] [facility] [address] Performing Lab: [facility] [address] [place] [facility] [address] WBC 6.68 4.0-11.0 RBC 3.83 L 4.6-6.2 [...] smoking and tobacco-related health factors from the [place] facility where the Encounter took place.Current Smoking Status This section includes the most current smoking, or tobacco-related health factor, from the [place] facility where the Encounter took place. Date/Time Current Smoking Status Comment Facility Jul 05, 2020 06:42 PM VA-TOBACCO FORMER USER MIN [facility] Tobacco Use History This section includes a history of the smoking, or tobacco- related health factors, that were collected on or before the date of the Encounter. The data comes from the [place] facility where the Encounter took place. Date/Time Smoking Status/Tobacco Use Comment [facility] Jan 09, 2018 02:01 PM VA-TOBACCO FORMER USER MIN [facility] Jan 09, 2018 02:01 PM [place]-TOBACCO QUIT 5 TO < 15 YRS [facility] Apr 16, 2017 10:17 AM FORMER TOBACCO USER 7Y OR GREATER [facility] Jun 09, 2016 10:03 AM FORMER TOBACCO USER 7Y OR GREATER [facility] May 06, 2015 08:19 AM FORMER TOBACCO USER 7Y OR GREATER [facility] Advance Directives: All historical and current Section Date Range: From patient's date of to the date document was created. This section includes ALL of a patient's completed or amended [place] Advance and Rescinded Directives. The entries below indicate that a directive exists for the patient, but an actual copy is not included with this document. The data comes from all [place] facilities. Date Advance Directives Provider Source July 24, 2021 ADVANCE DIRECTIVE PAPA LEWIS [facility] July 24, 2021 ADVANCE DIRECTIVE DISCUSSION PAPA LEWIS [facility] Radiology Reports: +/- 30 days of the [...] the Encounter. The data comes from all [place] treatment facilities. Date/Time Radiology Report Provider Source Jan 19, 2021 09:[address] (CAP) CHEST/ABD/PELVIS (P): CÉSAR ERNST [facility] ANDER LOCKWOOD [id number] -[birth year] 7 M Exm Date: JAN 19, 2021@09:07 Req Phys: SHELLY GUERRERO Pat Loc: [facility] HE M ONC [place] 3V (Req'g Img Loc: CT IMAGING Service: Unknown (Case [id number] COMPLETE) CT (CAP) CHEST W CONTRAST ( CT Detailed) CPT:26625 Contrast Media : Non-ionic Iodinated Reason for Study: Interval imaging for follicul ar lymphoma and NSCLC (Case 1493 COMPLETE) CT (CAP) ABDOMEN/PELVIS W C ONTRAS(CT Detailed) CPT:46072 Contrast Media : Non-ionic Iodinated Clinical History: [...] 19, 2021 Date Verified: JAN 19, 2021 Card Room Manager E-Sig:/ES/NADYA ERNST MD Report: Contrast-enhanced chest abdomen [...] Primary Interpreting Staff: NADYA ERNST MD, RADIOLOGIST (Card Room Manager) /[facility] Encounter Notes: All associated encounter notes This section contains the clinical notes associated to the Encounter. Date/Time Encounter Note(s) Provider Source Jan 19, 2021 12:14 PM HEMATOLOGY AND ONCOLOGY NURSING OUTPAT IENT NOTE: JODY SIFUENTES [facility] LOCAL TITLE: HEME/ONC BLOOD DRAW CLINIC NURSING NOTE STANDARD TITLE: HEMATOLOGY AND ONCOLOGY NURSING OUTPATIENT NOTE DATE OF NOTE: JAN 19, 2021@12:14 ENTRY DATE: JAN 19, 2021@12:14:47 AUTHOR: JODY SIFUENTES EXP COSIGNER: URGENCY: STATUS: COMPLETED Date of Service:Jan Diagnosis: Procedure: blood collection through venous acces s device Venous Access Device Care: Type: Portacath 3/4 20g Power Mcdermott Needle Blood return: Yes Site: normal Labs drawn: Yes Flushes: normal saline, heparin 500 units Status: remains accessed Discharge to: Other: radiology Patient was notified they need their por t flushed in 30-60 days and to make an appt with the [facility] or at their own provider. /shalonda/ JODY SIFUENTES LPN LICENSED PRACTICAL NURSE Signed: 01/19/2021 12:16
--- OUTSIDE RECORDS SUMMARY | 2021-11-18 09:19 | XMS_ITS | Encounter Summary ---
:1945 Author Organization [facility] Address [address] [place] [id number] Support Name Relationship Address Phone SILKE LOCKWOOD Unavailable [id number] [place] [id number] SILKE LOCKWOOD Unavailable [id number] [place] [id number] Insurance Providers: All historical and current Section [...] Victor [place] Jun 10, [id number] [facility]) 2019 8 [id number] [phone] ,ANDER Bennett [place] Jun 10, [id number] ATIENT [facility] (WNR) ADVANTAGE (WNR) 2018 3 [id number] [phone] ,ANDER Bennett Selected Encounter This section includes the information on record at [facility] for the Encounter. Date/Time Encounter Type Encounter Description Reason Provider Source Nov 29, 2020 11:52 Outpatient Encounter PRIMARY CARE/MEDICINE AM [facility] Encounter Template Text not used by [facility] Plan of Treatment: Future Appointments (+ 6 months) and Future Tests (+/- 45 days) The Plan of Treatment section includes future care activities for the patient from all [facility] treatmentfacilities. This section includes future appointments and future orders which are active, pending orscheduled.Future Appointments This section includes appointments that were scheduled to occur 6 months from the date of the Encounter, up to a maximum of 20 appointments. The data comes from all [facility] treatment facilities. Appointment Date/Time Appointment Type Appointment Facili ty Name Dec 27, 2020 11:15 AM AMBULATORY - MEDICINE [facility] Jan 18, 2021 07:00 AM AMBULATORY - NONE [facility] Jan 19, 2021 08:30 AM AMBULATORY - MEDICINE [facility] Jan 19, 2021 09:00 AM AMBULATORY - NONE [facility] Jan 24, 2021 10:00 AM AMBULATORY - MEDICINE [facility] Mar 25, 2021 10:30 AM AMBULATORY - MEDICINE [facility] May 16, 2021 09:30 AM AMBULATORY - MEDICINE [facility] May 16, 2021 10:00 AM AMBULATORY - NONE [facility] May 20, 2021 08:15 AM AMBULATORY - MEDICINE [facility] May 20, 2021 08:30 AM AMBULATORY - MEDICINE [facility] May 20, 2021 10:30 AM AMBULATORY - MEDICINE [facility] May 24, 2021 03:00 PM AMBULATORY - SURGERY [facility] May 26, 2021 03:30 PM AMBULATORY - MEDICINE [facility] Lab Results: +/- 30 days of the encounter This section includes the Chemistry and Hematology Lab Results on record with [facility] for the patient. Radiology Reports and Pathology Reports are provided separately, in subsequent sections.Lab Results This section contains the Chemistry/Hematology Results that were resulted 30 days before or 30 daysafter the date of the Encounter. Date/Time Source Result Type Result - Unit Interpretation Reference Range Comment Nov 23, 2020 [facility] CREATININE(INCLUDES EGFR) Sp ecimen Type: PLASMA 09:15 AM No comment enter ed. Ordering Provid er: LIAM MEJIA Report Released Date/Time: Jun 20, 2019 09:58 AM Reporting Lab: [facility] [address] [facility] [address] Performing Lab: [facility] [address] [facility] [address] CREATININE 1.2 0.7-1.2 ESTIMATED GFR(eGFR) 59 L >60 Nov 23, 2020 09:15 AM [facility] GLUCOSE Specim en Type: PLASMA No comment enter ed. Ordering Provid er: LIAM MEJIA Report Released Date/Time: Jun 20, 2019 09:58 AM Reporting Lab: [facility] [address] [facility] [address] Performing Lab: [facility] [address] [facility] [address] GLUCOSE 79 74-100 Nov 23, 2020 09:15 AM [facility] HEMOGLOBIN A1C Specim en Type: BLOOD No comment enter ed. Ordering Provid er: LIAM MEJIA Report Released Date/Time: Jun 20, 2019 09:58 AM Reporting Lab: [facility] [address] [facility] [address] Performing Lab: [facility] [address] [facility] [address] HEMOGLOBIN A1C 5.2 4.0-6.0 Nov 23, 2020 09:15 [facility] ELECTROLYTES/ANION GAP Sp ecimen Type: PLASMA AM No comment enter ed. Ordering Provid er: LIAM MEJIA Report Released Date/Time: Jun 20, 2019 09:58 AM Reporting Lab: [facility] [address] [facility] [address] Performing Lab: [facility] [address] [facility] [address] SODIUM 141 136-145 POTASSIUM 4.0 3.5-5.1 CHLORIDE 105 98-107 CO2 26 22-29 ANION GAP 10 5-15 Nov 23, 2020 09:15 AM [facility] ALT/SGPT Specim en Type: PLASMA No comment enter ed. Ordering Provid er: LIAM MEJIA Report Released Date/Time: Jun 20, 2019 09:58 AM Reporting Lab: [facility] [address] [facility] [address] Performing Lab: [facility] [address] [facility] [address] ALT/SGPT 16 <55 Nov 23, 2020 09:15 AM [facility] AST/SGOT Specim en Type: PLASMA No comment enter ed. Ordering Provid er: LIAM MEJIA Report Released Date/Time: Jun 20, 2019 09:58 AM Reporting Lab: [facility] [address] [facility] [address] Performing Lab: [facility] [address] [facility] [address] AST/SGOT 14 <34 Nov 23, 2020 09:15 AM [facility] PSA Specim en Type: SERUM No comment enter ed. Ordering Provid er: LIAM MEJIA Report Released Date/Time: Jun 20, 2019 09:58 AM Reporting Lab: [facility] [address] [facility] [address] Performing Lab: [facility] [address] [facility] [address] PSA 1.12 <4.00 Nov 23, 2020 09:15 AM [facility] CBC Specim en Type: BLOOD No comment enter ed. Ordering Provid er: LIAM MEJIA Report Released Date/Time: Jun 20, 2019 09:58 AM Reporting Lab: [facility] [address] [facility] [address] Performing Lab: [facility] [address] [facility] [address] WBC 6.20 4.0-11.0 RBC 3.53 L 4.6-6.2 HGB 11.1 L 13.5-17.9 HCT 33.5 L 41-54 MCV 94.9 80-100 MCH 31.4 27-33 MCHC 33.1 32.0-37.5 PLT 226 150-400 MPV 8.5 7.4-10.4 RDW 12.9 11.5-14.5 Nov 23, 2020 09:15 [facility] TSH W/REFLEX TO FREE Spec imen Type: PLASMA AM T4 No comment enter ed. Ordering Provid er: LIAM MEJIA Report Released Date/Time: Jun 20, 2019 09:58 AM Reporting Lab: [facility] [address] [facility] [address] Performing Lab: [facility] [address] [facility] [address] TSH 1.77 0.35-4.94 Nov 23, 2020 09:15 [facility] LIPID PANEL,FASTING Speci men Type: PLASMA AM No comment enter ed. Ordering Provid er: LIAM MEJIA Report Released Date/Time: Jun 20, 2019 09:58 AM Reporting Lab: [facility] [address] [facility] [address] Performing Lab: [facility] [address] [facility] [address] CHOLESTEROL 140 <199 TRIGLYCERIDE 99 <149 .HDL 51 >40 LDL CALCULATION 69 <99 VLDL CALCULATION 20 <29 NON HDL CHOLESTEROL 89 <129 Social History: Smoking Status (Most current) and Tobacco Use (All prior to encounter date) This section includes the most current, and the historical, smoking and tobacco-related health factors from the [facility] facility where the Encounter took place.Current Smoking Status This section includes the most current smoking, or tobacco-related health factor, from the [facility] facility where the Encounter took place. Date/Time Current Smoking Status Comment Facility Jul 05, 2020 06:42 PM VA-TOBACCO FORMER USER [facility] Tobacco Use History This section includes a history of the smoking, or tobacco- related health factors, that were collected on or before the date of the Encounter. The data comes from the [facility] facility where the Encounter took place. Date/Time Smoking Status/Tobacco Use Comment Facil ity Jan 09, 2018 02:01 PM VA-TOBACCO FORMER USER [facility] Jan 09, 2018 02:01 PM VA-TOBACCO QUIT 5 TO < 15 YRS [facility] Apr 16, 2017 10:17 AM FORMER TOBACCO USER 7Y OR GREATER [facility] Jun 09, 2016 10:03 AM FORMER TOBACCO USER 7Y OR GREATER [facility] May 06, 2015 08:19 AM FORMER TOBACCO USER 7Y OR GREATER [facility] Advance Directives: All historical and current Section Date Range: From patient's date of to the date document was created. This section includes ALL of a patient's completed or amended [facility] Advance and Rescinded Directives. The entries below indicate that a directive exists for the patient, but an actual copy is not included with this document. The data comes from all [facility]. Date Advance Directives Provider Source July 24, 2021 ADVANCE DIRECTIVE DISCUSSION [facility] July 24, 2021 ADVANCE DIRECTIVE [facility] Encounter Notes: All associated encounter notes This section contains the clinical notes associated to the Encounter. Date/Time Encounter Note(s) Provider Source Nov 29, 2020 11:52 AM LETTERS: LIAM MEJIA [facility] LOCAL TITLE: FOLLOW UP RESULTS LETTER STANDARD TITLE: LETTERS DATE OF NOTE: NOV 29, 2020@11:52 ENTRY DATE: NOV 29, 2020@11:52:20 AUTHOR: LIAM MEJIA EXP COSIGNER: URGENCY: STATUS: COMPLETED [facility] [address] [place] [address] Nov ANDER LOCKWOOD [id number] [facility] [address] Dear [place]: I am writing to inform you of the results of the tests you had done at the [facility]. The te sts below were performed and are satisfactory unless otherwise noted. - Cholesterol Tests (HDL = good and LDL = ba d) CHOLESTEROL 140 (11/23/20) (prefer less than 20 0) HDL 51 (11/23/20) (prefer more than 39) LDL CALCULATION 69 (11/23/20) (prefer less than 100) TRIGLYCERIDE 99 (11/23/20) (prefer less than 15 0) . - Complete Blood Count (red/white blood cell co unts and platelets) White count: WBC 6.20 (11/23/20) (normal is 4.0- 11.0) Hemoglobin: HGB 11.1 L (11/23/20) (normal Male i s 13.5-17.9; Female is 11.5-16) Hematocrit: HCT 33.5 L (11/23/20) (normal Male i s 41-54; Female is 34.5- 48) Platelets: PLT 226 (11/23/20) (normal is 150-400 ) . - Electrolytes including sodium and potassium SODIUM 141 (11/23/20) (normal is 137-144) POTASSIUM 4.0 (11/23/20) (normal is 3.5-5.0) . - Kidney function CREATININE 1.2 (11/23/20) (normal Male 0.7-1.2; normal Female is 0.5-1.0) . - Blood Sugar GLUCOSE 79 (11/23/20) (normal is 70 - 105 if fas ting) . - Liver function Tests AST/SGOT 14 (11/23/20) (normal 5-34) ALT/SGPT 16 (11/23/20) (normal </= 55) . - Hemoglobin A1C (normal 4.0-6.0) Collection DT Spec HGBA1C 11/23/2020 09:15 BLOOD 5.2 01/29/2020 11:45 BLOOD 5.1 04/16/2017 09:59 BLOOD 5.1 . - Prostate Test: PSA 1.12 (11/23/20) (normal is </= 3.99) . - Thyroid Function: TSH 1.77 (11/23/20) (normal 0.3-5.0) Comments: Hemoglobin is lower than normal but st able. All of the other results listed above look good. If you have any further questions or problems, maria esther ellison contact our nursing staff or me at the following number: [phone]. Sincerely, LIAM MEJIA MD STAFF PHYSICIAN
--- OUTSIDE RECORDS SUMMARY | 2021-11-18 09:20 | XMS_ITS | Encounter Summary ---
:1945 Author Organization [facility] Address [address] [place] [id number] Support Name Relationship Address Phone SILKE LOCKWOOD Unavailable [phone] [address] SILKE LOCKWOOD Unavailable [phone] [place] [address] Insurance Providers: All historical and current Section [...] Victor [place]ARE MCR Jun 10, [id number] [facility] (WNR) ADVANTAGE (WNR) 2019 8 [id number] [phone] ,ANDER Bennett [place] Jun 10, [id number] [facility]NR[facility] 2018 3 [id number] [phone] ,ANDER Bennett Selected Encounter This section includes the information on record at [place] for the Encounter. Date/Time Encounter Type Encounter Reason Provider Source Description Nov 23, 2020 Outpatient TELEPHONE/SURGERY ICD-10-CM C64.1 UBALDO LOUIS 03:00 PM Encounter Malignant neoplasm of right kidney, except renal pelvis with Provider Comments: Malignant neoplasm of right kidney, except renal pelvis IHE Encounter Template Text not used by [place] Assessments - Encounter Diagnoses This section includes the primary and secondary diagnoses documented for the Encounter. Date/Time Primary/Secondary Diagnosis Name Provider Source Diagnosis Nov 23, 2020 PRIMARY Malignant VERONICA LOUIS [facility] 03:00 PM neoplasm of HCS right kidney, except renal pelvis Plan of Treatment: Future Appointments (+ 6 months) and Future Tests (+/- 45 days) The Plan of Treatment section includes future care activities for the patient from [facility] [place] [facility]. This section includes future appointments and future orders which are active, pending orscheduled.Future Appointments This section includes appointments that were scheduled to occur 6 months from the date of the Encounter, up to a maximum of 20 appointments. The data comes from all [place] treatment facilities. Appointment Date/Time Appointment Type Appointment Facili ty Name Dec 27, 2020 11:15 AM AMBULATORY - [facility] Jan 18, 2021 07:00 AM AMBULATORY - NONE [facility] Jan 19, 2021 08:30 AM AMBULATORY [facility] Jan 19, 2021 09:00 AM AMBULATORY [facility] Jan 24, 2021 10:00 AM AMBULATORY - [facility]IC[facility] Mar 25, 2021 10:30 AM AMBULATORY - [facility]IC[facility] May 16, 2021 09:30 AM AMBULATORY - [facility] May 16, 2021 10:00 AM [facility] May 20, 2021 08:15 AM AMBULATORY - MEDICINE [facility] May 20, 2021 08:30 AM AMBULATORY - [facility] May 20, 2021 10:30 AM [facility]BULATORY - [facility] Lab Results: +/- 30 days of the encounter This section includes the Chemistry and Hematology Lab Results on record with [place] for the patient. Radiology Reports and Pathology [...] [facility] [address] [place] [facility] [address] Performing Lab: [facility] [address] [facility] [address] CREATININE 1.2 0.7-1.2 ESTIMATED GFR(eGFR) 59 L >60 Nov 23, 2020 09:15 [facility] ELECTROLYTES/ANION GAP Sp ecimen Type: PLASMA AM No comment enter ed. Ordering Provid er: LIAM MEJIA Report Released Date/Time: Jun 20, 2019 09:58 AM Reporting Lab: [facility] [address] [facility] [address] Performing Lab: [facility] [address] [facility] [address] SODIUM 141 136-145 POTASSIUM 4.0 3.5-5.1 CHLORIDE 105 98-107 CO2 26 22-29 ANION GAP 10 5-15 Nov 23, 2020 09:15 AM [facility] GLUCOSE Specim en Type: PLASMA No comment enter ed. Ordering Provid er: LIAM MEJIA Report Released Date/Time: Jun 20, 2019 09:58 AM Reporting Lab: [facility] [address] [facility] [address] Performing Lab: [facility] [address] [facility] [address] GLUCOSE 79 74-100 Nov 23, 2020 09:15 AM [facility] CBC Specim en Type: BLOOD No comment enter ed. Ordering Provid er: LIAM MEJIA Report Released Date/Time: Jun 20, 2019 09:58 AM Reporting Lab: [facility] [address] [facility] [address] Performing Lab: [facility] [address] [facility] [address] WBC 6.20 4.0-11.0 RBC 3.53 L 4.6-6.2 HGB 11.1 L 13.5-17.9 HCT 33.5 L 41-54 MCV 94.9 80-100 MCH 31.4 27-33 MCHC 33.1 32.0-37.5 PLT 226 150-400 MPV 8.5 7.4-10.4 RDW 12.9 11.5-14.5 Nov 23, 2020 09:15 AM [facility] HEMOGLOBIN A1C Specim en Type: BLOOD No comment enter ed. Ordering Provid er: LIAM MEJIA Report Released Date/Time: Jun 20, 2019 09:58 AM Reporting Lab: [facility] [address] [facility] [address] Performing Lab: [facility] [address] [facility] [address] HEMOGLOBIN A1C 5.2 4.0-6.0 Nov 23, 2020 09:15 AM [facility] AST/SGOT Specim en Type: PLASMA No comment enter ed. Ordering Provid er: LIAM MEJIA Report Released Date/Time: Jun 20, 2019 09:58 AM Reporting Lab: [facility] [address] [facility] [address] Performing Lab: [facility] [address] [facility] [address] AST/SGOT 14 <34 Nov 23, 2020 09:15 AM [facility] ALT/SGPT Specim en Type: PLASMA No comment enter ed. Ordering Provid er: LIAM MEJIA Report Released Date/Time: Jun 20, 2019 09:58 AM Reporting Lab: [facility] [address] [facility] [address] Performing Lab: [facility] [address] [facility] [address] ALT/SGPT 16 <55 Nov 23, 2020 09:15 [facility] TSH W/REFLEX TO FREE Spec imen Type: PLASMA AM T4 No comment enter ed. Ordering Provid er: LIAM MEJIA Report Released Date/Time: Jun 20, 2019 09:58 AM Reporting Lab: [facility] [address] [facility] [address] Performing Lab: [facility] [address] [facility] [address] TSH 1.77 0.35-4.94 Nov 23, 2020 09:15 AM [facility] PSA Specim en Type: SERUM No comment enter ed. Ordering Provid er: LIAM MEJIA Report Released Date/Time: Jun 20, 2019 09:58 AM Reporting Lab: [facility] [address] [facility] [address] Performing Lab: [facility] [address] [facility] [address] PSA 1.12 <4.00 Nov 23, 2020 09:15 [facility] LIPID PANEL,FASTING Speci men Type: PLASMA AM No comment enter ed. Ordering Provid er: LIAM MEJIA Report Released Date/Time: Jun 20, 2019 09:58 AM Reporting Lab: [facility] [address] [facility] [address] Performing Lab: [facility] [address] [facility] [address] CHOLESTEROL 140 <199 TRIGLYCERIDE 99 <149 .HDL 51 >40 LDL CALCULATION 69 <99 VLDL CALCULATION 20 <29 NON HDL CHOLESTEROL 89 <129 Oct 28, 2020 09:43 [facility] COMPREHENSIVE METABOLIC S pecimen Type: PLASMA AM PANEL+MG No comment enter ed. Ordering Provid er: EMILY MCLAIN Report Released Date/Time: July 26, 2020 09:25 AM Reporting Lab: [facility] [address] Performing Lab: [facility] [address] CREATININE 1.2 0.7-1.2 UREA NITROGEN 19 8-26 GLUCOSE 97 74-100 SODIUM 140 136-145 POTASSIUM 3.9 3.5-5.1 CHLORIDE 105 98-107 CO2 24 22-29 CALCIUM 9.5 8.4-10.2 PROTEIN,TOTAL 6.7 6.0-8.3 ALBUMIN 3.9 3.5-5.2 BILIRUBIN, TOTAL 0.5 0.2-1.2 MAGNESIUM 1.9 1.6-2.6 ANION GAP 11 5-15 ALKALINE PHOSPHATASE 80 40-150 ALT/SGPT 17 <55 AST/SGOT 14 <34 ESTIMATED GFR(eGFR) 59 L >60 Oct 28, 2020 09:43 AM [facility] CBC & DIFF Specim en Type: BLOOD Comment: Automa kerrie Differential Performed Ordering Provid er: EMILY MCLAIN Report Released Date/Time: July 26, 2020 09:25 AM Reporting Lab: [facility] [address] Performing Lab: [facility] [address] WBC 7.41 4.0-11.0 RBC 3.59 L 4.6-6.2 HGB 11.4 L 13.5-17.9 HCT 34.4 L 41-54 MCV 95.8 80-100 MCH 31.8 27-33 MCHC 33.1 32.0-37.5 PLT 256 150-400 MPV 8.4 7.4-10.4 NEUT 59.0 LYMPHS 24.2 MONO 12.4 EOSINO 3.6 BASO 0.5 RDW 14.0 11.5-14.5 ABS LYMPH 1.79 1.0-4.0 ABS MONO 0.92 0.1-1.0 ABS NEUT 4.37 2.0-7.7 ABS EOS 0.27 0-0.5 ABS BASO 0.04 0-0.2 IG(META,MYELO,PRO) 0.3 ABS IMMATURE GRAN 0.02 0-0.1 Social History: Smoking Status (Most current) and Tobacco Use (All prior to encounter date) This section includes the most current, and the historical, smoking and tobacco-related health factors from the [place] facility where the Encounter took place.Current Smoking Status This section includes the most current smoking, or tobacco-related health factor, from the [facility] where the Encounter took place. Date/Time Current Smoking Status Comment Facility Jul 05, 2020 06:42 PM VA-TOBACCO FORMER USER [facility] Tobacco Use History This section includes a history of the smoking, or tobacco- related health factors, that were collected on or before the date of the Encounter. The data comes from the [place] facility where the Encounter took place. Date/Time Smoking Status/Tobacco Use Comment [facility] it Jan 09, 2018 02:01 PM VA-TOBACCO FORMER USER [facility] Jan 09, 2018 02:01 PM VA-TOBACCO [...] ALL of a patient's completed or amended [place] Advance and Rescinded Directives. The entries below indicate that a directive exists for the patient, but an actual copy is not included with this document. The data comes from all [facility]. Date Advance Directives Provider Source July 24, 2021 ADVANCE DIRECTIVE PAPA LEWIS [facility] July 24, 2021 ADVANCE DIRECTIVE DISCUSSION PAPA LEWIS [facility] Encounter Notes: All associated encounter notes This section contains the clinical notes associated to the Encounter. Date/Time Encounter Note(s) Provider Source Nov 18, 2020 03:07 PM REPORT OF CONTACT: VERONICA LOUIS [facility] LOCAL TITLE: PATIENT CONTACT NOTE STANDARD TITLE: REPORT OF CONTACT DATE OF NOTE: NOV 18, 2020@15:07 ENTRY DATE: NOV 18, 2020@15:07:46 AUTHOR: VERONICA LOUIS COSIGNER: URGENCY: STATUS: COMPLETED Patient contact Name of [place]: CARLSTROM,ANDER WALTER Name/Relationship of Contact if other than Veter an: Date & Time of Contact: Nov@15:07 Type of Contact: Telephone Reason for Contact: 75-year-old gentleman with a complex medical history that includes a history of lung adenocarcinoma s/p rese ction and adjuvant chemotherapy, follicular lymphoma s/p prior treatment now observation as well as a n incidentally detected small right renal mass of approxim ately 10 mm in largest diameter suspicious for renal cell carcinoma. The patient is closely followed by medical oncol jim. At previous visits, an observant approach for his renal mass has been r ecommended. I reach him via telephone to discuss his most recent imaging studies obtained on 10/22/2020. Pertinent aspects of this report are outlined below. Of note, the patient is also seen our colleagues from medical oncology on October 22, 2020 full Impression: 1. Stable postoperative changes from a right lo wer lobectomy. 2. 9 mm subsolid pulmonary nodule in the apical segment of the right upper lobe is unchanged since the 05/27/19 CT exam. Continued surveillance is recommended. 3. Persistent fat stranding in the small bowel mesentery with progressive solid components since the CT exam. Findings consistent with progression of the pat ient's known follicular lymphoma. 4. Heterogeneously enhancing lesion in the ante rior mid to lower pole of the right kidney. Slightly increased in size since recent comparison CT exams. Suspicious for a renal anamaria l carcinoma. 5. Left-sided colonic diverticulosis without ac [place] diverticulitis. Heterogeneously enhancing lesion in the anterior mid to lower p ole of the right kidney measuring 12 mm, previously measuring 10 mm on the 05/26/2020 CT exam (axial image 374, series 4). Left kidney unremarkable. A/P We discussed findings of his most recent CT scan with regards to his renal mass which has grown slightly from approximately 10 m m to now 12 mm. This mass continues to remain very small and based on curr ent evidence-based guidelines should continue to be observed. As it approaches 2 cm in size, will consider biopsy and treatment. Such decisions will be shama ghed in the context of his other competing medical andrea rbidities, in particular his history of lymphoma and lung cancer. All questions were addressed and the pat ient is happy with the plan. Since the patient will receive routine imaging thr [facility], we will plan to review existing images when we reconnect in appr oximately 6 months. PLAN -Follow-up visit in 6-month via phone to discuss most recent imaging findings from a urology perspective. I spent approximately 30 min with the patient of which > 50% were devoted to counseling about his diagnosis, prognosis and di scussion of management options. /shalonda/ VERONICA LOUIS MD UROLOGY STAFF Signed: 11/23/2020 10:54
--- OUTSIDE RECORDS SUMMARY | 2021-11-18 09:20 | XMS_ITS | Encounter Summary ---
:1945 Author Organization [facility] Address [address] [place] [id number] Support Name Relationship Address Phone SILKE LOCKWOOD Unavailable [id number] [address] SILKE LOCKWOOD Unavailable [id number] [address] Insurance Providers: All historical and current Section [...] Victor [place] Jun 10, [id number]on [facility] (WNR) ADVANTAGE (WNR) 2019 8 [id number] [phone] ,ANDER Bennett [place] Jun 10, [id number] [facility] (WNR) ADVANTAGE (WNR) 2018 3 [id number] [phone] ,ANDER Bennett Selected Encounter This section includes the information on record at [place] for the Encounter. Date/Time Encounter Type Encounter Reason Provider Source Description Nov 23, 2020 DRAW BLOOD OFF ONCOLOGY/TUMOR ICD-10-CM Z45.2 RYAN BRAVO 09:00 AM VENOUS DEVICE Encounter for D S adjustment and management of VAD with Provider Comments: Encounter for adjustment and management of VAD IHE Encounter Template Text not used by [place] Assessments - Encounter Diagnoses This section includes the primary and secondary diagnoses documented for the Encounter. Date/Time Primary/Secondary Diagnosis Name Provider Source Diagnosis Nov 23, 2020 PRIMARY Encounter for LIZETH BRAVO [facility] 09:30 AM adjustment and D S HCS management of VAD Plan of Treatment: Future Appointments (+ 6 months) and Future Tests (+/- 45 days) The Plan of Treatment section includes future care activities for the patient from all [place] treatmentfacilities. This section includes future appointments and future orders which are active, pending orscheduled.Future Appointments This section includes appointments that were scheduled to occur 6 months from the date of the Encounter, up to a maximum of 20 appointments. The data comes from all [place] treatment facilities. Appointment Date/Time Appointment Type Appointment Facili ty Name Dec 27, 2020 11:15 AM AMBULATORY - MEDICINE [facility] Jan 18, 2021 07:00 AM AMBULATORY - NONE [facility] Jan 19, 2021 08:30 AM AMBULATORY MEDICINE [facility] Jan 19, 2021 09:00 AM AMBULATORY [facility] Jan 24, 2021 10:00 AM AMBULATORY - MEDICINE [facility] Mar 25, 2021 10:30 AM AMBULATORY - MEDICINE [facility] May 16, 2021 09:30 AM AMBULATORY MEDICINE [facility] May 16, 2021 10:00 AM AMBULATORY - [facility] May 20, 2021 08:15 AM AMBULATORY - MEDICINE [facility] May 20, 2021 08:30 AM AMBULATORY - MEDICINE [facility] May 20, 2021 10:30 AM AMBULATORY - MEDICINE [facility] Lab Results: +/- 30 days of the encounter This section includes the Chemistry and Hematology Lab Results on record with [place] for the patient. Radiology Reports and Pathology Reports are provided separately, in subsequent sections.Lab Results This section contains the Chemistry/Hematology Results that were resulted 30 days before or 30 daysafter the date of the Encounter. Date/Time Source Result Type Result - Unit Interpretation Reference Range Comment Nov 23, 2020 [facility] CREATININE(INCLUDES EGFR) Sp ecimen Type: PLASMA 09:15 AM No comment enter ed. Ordering Provid er: LIAM MEJIA Report Released Date/Time: Jun 20, 2019 09:58 AM Reporting Lab: [facility] [address] [facility] [address] [facility] [address] Performing Lab: [facility] [address] CREATININE 1.2 0.7-1.2 ESTIMATED GFR(eGFR) 59 L >60 Nov 23, 2020 09:15 AM [facility] GLUCOSE Specim en Type: PLASMA No comment enter ed. Ordering Provid er: JACKIE,LIAM E Report Released Date/Time: Jun 20, 2019 09:58 AM Reporting Lab: [facility] [address] [facility] [address] Performing Lab: [facility] [address] [facility] [address] GLUCOSE 79 74-100 Nov 23, 2020 09:15 [facility] ELECTROLYTES/ANION GAP Sp ecimen Type: PLASMA AM No comment enter ed. Ordering Provid er: LIAM MEJIA Report Released Date/Time: Jun 20, 2019 09:58 AM Reporting Lab: [facility] [address] [facility] [address] Performing Lab: [facility] [address] [facility] [address] SODIUM 141 136-145 POTASSIUM 4.0 3.5-5.1 CHLORIDE 105 98-107 CO2 26 22-29 ANION GAP 10 5-15 Nov 23, 2020 09:15 AM [facility] HEMOGLOBIN A1C Specim en Type: BLOOD No comment enter ed. Ordering Provid er: LIAM MEJIA Report Released Date/Time: Jun 20, 2019 09:58 AM Reporting Lab: [facility] [address] [facility] [address] Performing Lab: [facility] [address] [facility] [address] HEMOGLOBIN A1C 5.2 4.0-6.0 Nov 23, 2020 09:15 AM [facility] AST/SGOT Specim en Type: PLASMA No comment enter ed. Ordering Provid er: LIAM MEJIA Report Released Date/Time: Jun 20, 2019 09:58 AM Reporting Lab: [facility] [address] [facility] [address] Performing Lab: [facility] [address] [facility] [address] AST/SGOT 14 <34 Nov 23, 2020 09:15 AM [facility] CBC Specim en Type: BLOOD No comment enter ed. Ordering Provid er: LIAM MEJIA Report Released Date/Time: Jun 20, 2019 09:58 AM Reporting Lab: [facility] [address] [facility] [address] Performing Lab: [facility] [address] [facility] [address] WBC 6.20 4.0-11.0 RBC 3.53 L 4.6-6.2 HGB 11.1 L 13.5-17.9 HCT 33.5 L 41-54 MCV 94.9 80-100 MCH 31.4 27-33 MCHC 33.1 32.0-37.5 PLT 226 150-400 MPV 8.5 7.4-10.4 RDW 12.9 11.5-14.5 Nov 23, 2020 09:15 AM [facility] ALT/SGPT Specim en Type: PLASMA No comment enter ed. Ordering Provid er: LIAM MEJIA Report Released Date/Time: Jun 20, 2019 09:58 AM Reporting Lab: [facility] [address] [facility] [address] Performing Lab: [facility] [address] [facility] [address] ALT/SGPT 16 <55 Nov 23, 2020 09:15 [facility] TSH W/REFLEX TO FREE Spec imen Type: PLASMA AM T4 No comment enter ed. Ordering Provid er: LIAM MEJIA Report Released Date/Time: Jun 20, 2019 09:58 AM Reporting Lab: [facility] [address] [facility] [address] Performing Lab: [facility] [address] [facility] [address] TSH 1.77 0.35-4.94 Nov 23, 2020 09:15 AM [facility] PSA Specim en Type: SERUM No comment enter ed. Ordering Provid er: LIAM MEJIA Report Released Date/Time: Jun 20, 2019 09:58 AM Reporting Lab: [facility] [address] [facility] [address] Performing Lab: [facility] [address] [facility] [address] PSA 1.12 <4.00 Nov 23, 2020 09:15 [facility] LIPID PANEL,FASTING Speci men Type: PLASMA AM No comment enter ed. Ordering Provid er: LIAM MEJIA Report Released Date/Time: Jun 20, 2019 09:58 AM Reporting Lab: [facility] [address] [facility] [address] Performing Lab: [facility] [address] [facility] [address] CHOLESTEROL 140 <199 TRIGLYCERIDE 99 <149 .HDL 51 >40 LDL CALCULATION 69 <99 VLDL CALCULATION 20 <29 NON HDL CHOLESTEROL 89 <129 Oct 28, 2020 09:43 [facility] COMPREHENSIVE METABOLIC S pecimen Type: PLASMA AM PANEL+MG No comment enter ed. Ordering Provid er: EMILY MCLAIN Report Released Date/Time: July 26, 2020 09:25 AM Reporting Lab: [facility] [address] Performing Lab: [facility] [address] CREATININE 1.2 0.7-1.2 UREA NITROGEN 19 8-26 GLUCOSE 97 74-100 SODIUM 140 136-145 POTASSIUM 3.9 3.5-5.1 CHLORIDE 105 98-107 CO2 24 22-29 CALCIUM 9.5 8.4-10.2 PROTEIN,TOTAL 6.7 6.0-8.3 ALBUMIN 3.9 3.5-5.2 BILIRUBIN, TOTAL 0.5 0.2-1.2 MAGNESIUM 1.9 1.6-2.6 ANION GAP 11 5-15 ALKALINE PHOSPHATASE 80 40-150 ALT/SGPT 17 <55 AST/SGOT 14 <34 ESTIMATED GFR(eGFR) 59 L >60 Oct 28, 2020 09:43 AM [facility] CBC & DIFF Specim en Type: BLOOD Comment: Automa kerrie Differential Performed Ordering Provid er: EMILY MCLAIN Report Released Date/Time: July 26, 2020 09:25 AM Reporting Lab: [facility] [address] Performing Lab: [facility] [address] WBC 7.41 4.0-11.0 RBC 3.59 L 4.6-6.2 [...] smoking and tobacco-related health factors from the [place] facility where the Encounter took place.Current Smoking Status This section includes the most current smoking, or tobacco-related health factor, from the [place] facility where the Encounter took place. Date/Time Current Smoking Status Comment Facility Jul 05, 2020 06:42 PM VA-TOBACCO FORMER USER [facility] Tobacco Use History This section includes a history of the smoking, or tobacco- related health factors, that were collected on or before the date of the Encounter. The data comes from the [place] facility where the Encounter took place. Date/Time Smoking Status/Tobacco Use Comment Facil it Jan 09, 2018 02:01 PM [place]-TOBACCO FORMER USER [facility] Jan 09, 2018 02:01 PM [place]-TOBACCO QUIT 5 TO < 15 YRS [facility] Apr 16, 2017 10:17 AM FORMER TOBACCO USER 7Y OR GREATER [facility] Jun 09, 2016 10:03 AM FORMER TOBACCO USER 7Y OR GREATER [facility] May 06, 2015 08:19 AM FORMER TOBACCO USER 7Y OR GREATER [facility] Advance Directives: All historical and current Section Date Range: From patient's date of to the date document was created. This section includes ALL of a patient's completed or amended [place] Advance and Rescinded Directives. The entries below indicate that a directive exists for the patient, but an actual copy is not included with this document. The data comes from all [facility]. Date Advance Directives Provider Source July 24, 2021 ADVANCE DIRECTIVE PAPA LEWIS [facility] July 24, 2021 ADVANCE DIRECTIVE DISCUSSION PAPA LEWIS [facility] Encounter Notes: All associated encounter notes This section contains the clinical notes associated to the Encounter. Date/Time Encounter Note(s) Provider Source Nov 23, 2020 09:29 AM HEMATOLOGY AND ONCOLOGY NURSING OUTPAT IENT NOTE: DAVID BRAVO [facility] LOCAL TITLE: HEME/ONC BLOOD DRAW CLINIC NURSING NOTE STANDARD TITLE: HEMATOLOGY AND ONCOLOGY NURSING OUTPATIENT NOTE DATE OF NOTE: NOV 23, 2020@09:29 ENTRY DATE: NOV 23, 2020@09:29:29 AUTHOR: DAVID BRAVO EXP COSIGNER: URGENCY: STATUS: COMPLETED Date of Service:Nov Procedure: blood collection through venous acces s [...] MSA or at their own provider. /shalonda/ JOÃO NELSON LPN Signed: 11/23/2020 09:30
--- OUTSIDE RECORDS SUMMARY | 2021-11-18 09:26 | XMS_ITS | Encounter Summary ---
:[address] [facility] Address [address] [place] [address] Support Name Relationship Address Phone SILKE LOCKWOOD Unavailable [id number] [place] [address] SILKE LOCKWOOD Unavailable [id number] [place] [address] Insurance Providers: All historical and current Section [...] Victor [place] Jun 10, [id number] MANDIE Pabon ATIENT [facility] (WNR) ADVANTAGE (WNR) 2019 8 [id number] [phone] ,ANDER Bennett [place] Jun 10, [id number] ASHLEYTROM P ATIENT [facility] (WNR) ADVANTAGE (WNR) 2017 3 [id number] [phone] ,ANDER Bennett Selected Encounter This section includes the information on record at [place] for the Encounter. Date/Time Encounter Type Encounter Reason Provider Source Description Oct 03, 2021 01:39 Outpatient ADMIN PAT ACTIVDAREN COTTRELL PM Encounter (MASNONCT) L IHE Encounter Template Text not used by [place] Plan of Treatment: Future Appointments (+ 6 months) and Future Tests (+/- 45 days) The Plan of Treatment section includes future care activities for the patient from all [facility] treatment[facility]ilities. This section includes future appointments and future orders which are active, pending orscheduled.Future Appointments This section includes appointments that were scheduled to occur 6 months from the date of the Encounter, up to a maximum of 20 appointments. The data comes from all [place] treatment [facility]. Appointment Date/Time Appointment Type Appointment Facili ty Name Oct 04, 2021 07:51 PM AMBULATORY - NONE [facility] Oct 14, 2021 10:30 AM AMBULATORY - MEDICINE [facility] Oct 25, 2021 12:27 PM AMBULATORY - NONE [facility] Oct 27, 2021 08:30 AM AMBULATORY - MEDICINE [facility] Oct 27, 2021 09:00 AM AMBULATORY - NONE [facility] Nov 02, 2021 09:00 AM AMBULATORY - MEDICINE [facility] Nov 15, 2021 10:00 AM AMBULATORY - NONE [facility] Nov 17, 2021 10:00 AM AMBULATORY - SURGERY [facility] Dec 15, 2021 04:00 PM AMBULATORY - MEDICINE [facility] Active, Pending, and Scheduled Orders This section includes a listing of several types of active, pending, and scheduled orders, including clinic medications orders, diagnostic test orders, procedure orders and consult orders; where the start date of the order is 45 days before the date of the Encounter or 45 days after the date of the Encounter. The data comes from all [place] treatment [facility]. Test Date/Time Test Type Test Details Facility Name Oct 14, 2021 10:49 AM Consult Order [facility] THER[facility] Cons [facility] Nov 17, 2021 10:20 AM Imaging - Magnetic MRI-BRAIN (P) [facility] Resonance Imaging (MRI) Order Lab Results: +/- 30 days of [...] Result - Unit Interpretation Reference Range Comment Oct 27, 2021 09:00 [facility] FINGERSTICK GLUCOSE Speci men Type: BLOOD AM Comment: Apolonia hamilton Ordering Provid er: LIAM MEJIA Report Released Date/Time: Oct 27, 2021 01:25 PM Reporting Lab: [facility] [address] Performing Lab: [facility] [address] FINGERSTICK GLUCOSE 109 H 70-100 Oct 27, 2021 [facility] COMPREHENSIVE METABOLIC Spec imen Type: PLASMA 08:53 AM PANEL+MG No comment enter ed. Ordering Provid er: DENG LOUISE Report Released Date/Time: Oct 14, 2021 10:46 AM Reporting Lab: [facility] [address] Performing Lab: [facility] [address] CREATININE 1.0 0.7-1.2 UREA NITROGEN 23 8-26 GLUCOSE 115 H 70-100 SODIUM 141 136-145 POTASSIUM 4.1 3.5-5.1 CHLORIDE 109 H 98-107 CO2 24 22-29 CALCIUM 8.8 8.4-10.2 PROTEIN,TOTAL 6.0 6.0-8.3 ALBUMIN 3.4 L 3.5-5.2 BILIRUBIN, TOTAL 0.3 0.2-1.2 MAGNESIUM 1.9 1.6-2.6 ANION GAP 8 5-15 ALKALINE PHOSPHATASE 66 40-150 ALT/SGPT 26 <55 AST/SGOT 10 <34 CREAT EGFR(CKD-EPI) 78 >60 Oct 27, 2021 08:53 AM [facility] CBC & DIFF Specim en Type: BLOOD Comment: Automa kerrie Differential Performed Ordering Provid er: DENG LOUISE Report Released Date/Time: Oct 14, 2021 10:46 AM Reporting Lab: [facility] [address] Performing Lab: [facility] [address] WBC 10.67 4.0-11.0 RBC 3.73 L 4.6-6.2 HGB 11.4 L 13.5-17.9 HCT 34.7 L 41-54 MCV 93.0 80-100 MCH 30.6 27-33 MCHC 32.9 32.0-37.5 PLT 212 150-400 MPV 8.5 7.4-10.4 NEUT 87.9 LYMPHS 8.1 MONO 3.3 BASO 0.1 RDW 14.4 11.5-14.5 ABS LYMPH 0.86 L 1.0-4.0 ABS MONO 0.35 0.1-1.0 ABS NEUT 9.39 H 2.0-7.7 ABS BASO 0.01 0-0.2 IG(META,MYELO,PRO) 0.6 ABS IMMATURE GRAN 0.06 0-0.1 Sep 15, 2021 10:02 AM [facility] POC CREATININE Specim en Type: BLOOD No comment enter ed. Ordering Provid er: LIAM MEJIA Report Released Date/Time: Sep 15, 2021 10:02 AM Reporting Lab: [facility] [address] [facility] [address] Performing Lab: [facility] [address] [facility] [address] POC CREATININE 1.2 0.6-1.3 Sep 15, 2021 09:35 AM [facility] EXTRA MINT TUBE Specim en Type: PLASMA No comment enter ed. Ordering Provid er: LIAM MEJIA Report Released Date/Time: Sep 15, 2021 09:39 AM Reporting Lab: [facility] [address] [facility] [address] Performing Lab: [facility] [address] EXTRA MINT TUBE RECEIVED Sep 15, 2021 09:35 AM [facility] RETICS Specim en Type: BLOOD Comment: Automa kerrie Differential Performed Ordering Provid er: CHACHO GOMEZ Report Released Date/Time: May 21, 2021 03:59 PM Reporting Lab: [facility] [address] [facility] [address] Performing Lab: [facility] [address] [facility] [address] ABS RETIC 0.0751 0.0300-0.1000 .RETICULOCYTE 1.78 0.6-2.0 IMMATURE RETIC 12.5 1.0-14.0 .RETICULOCYTE HE 34.2 28.2-36.6 Sep 15, 2021 [facility] COMPREHENSIVE METABOLIC Spec imen Type: PLASMA 09:35 AM PANEL+MG Comment: Automa kerrie Differential Performed Ordering Provid er: CHACHO GOMEZ Report Released Date/Time: May 21, 2021 03:59 PM Reporting Lab: [facility] [address] [facility] [address] Performing Lab: [facility] Sep 15, 2021 [facility] LD,TOTAL Specimen Typ e: PLASMA 09:35 AM No comment enter ed. Ordering Provid er: CHACHO GOMEZ Report Released Date/Time: May 21, 2021 03:59 PM Reporting Lab: [facility] [address] [facility] [address] Performing Lab: [facility] [address] [facility] [address] LD,TOTAL 148 125-220 Sep 15, 2021 09:35 AM [facility] B 12 Specim en Type: SERUM No comment enter ed. Ordering Provid er: CHACHO GOMEZ Report Released Date/Time: May 21, 2021 03:59 PM Reporting Lab: [facility] [address] [facility] [address] Performing Lab: [facility] [address] [facility] [address] B 12 559 213-816 Sep 15, 2021 09:35 AM [facility] IRON GROUP Specim en Type: SERUM No comment enter ed. Ordering Provid er: CHACHO GOMEZ Report Released Date/Time: May 21, 2021 03:59 PM Reporting Lab: [facility] [address] [facility] [address] Performing Lab: [facility] [address] [facility] [address] IRON 71 65-175 TIBC,CALCULATED 258 250-425 FERRITIN 195.5 21.8-274.7 IRON SATURATION 28 20-50 TRANSFERRIN 206 163-382 Sep 15, 2021 09:35 AM [facility] FOLATE Specim en Type: SERUM No comment enter ed. Ordering Provid er: CHACHO GOMEZ Report Released Date/Time: May 21, 2021 03:59 PM Reporting Lab: [facility] [address] [facility] [address] Performing Lab: [facility] [facility] [address] FOLATE >20.0 >7.0 Sep 15, 2021 [facility] LIPID PANEL,NON-FASTING Spec imen Type: PLASMA 09:35 AM Comment: Automa kerrie Differential Performed Ordering Provid er: LIAM MEJIA Report Released Date/Time: May 29, 2021 05:51 PM Reporting Lab: [facility] [address] [facility] [address] Performing Lab: [facility] Sep 15, 2021 [facility] TSH W/REFLEX TO FREE T4 Spec imen Type: PLASMA 09:35 AM No comment enter ed. Ordering Provid er: LIAM MEJIA Report Released Date/Time: May 29, 2021 05:51 PM Reporting Lab: [facility] [address] [facility] [address] Performing Lab: [facility] [address] [facility] [address] TSH 1.72 0.35-4.94 Sep 15, 2021 09:35 [facility] EXTRA PURPLE TUBE Specime n Type: BLOOD AM No comment enter ed. Ordering Provid er: LIAM MEJIA Report Released Date/Time: Sep 15, 2021 09:39 AM Reporting Lab: [facility] [address] Performing Lab: [facility] [address] EXTRA PURPLE TUBE RECEIVED Sep 15, 2021 09:35 AM [facility] CBC & DIFF Specim en Type: BLOOD Comment: Automa kerrie Differential Performed Ordering Provid er: CHACHO GOMEZ Report Released Date/Time: May 21, 2021 03:59 PM Reporting Lab: [facility] [address] Performing Lab: [facility] [address] WBC 7.54 4.0-11.0 RBC 4.22 L 4.6-6.2 [...] GRAN 0.02 0-0.1 .RETICULOCYTE HE 34.2 28.2-36.6 Social History: Smoking Status (Most current) and Tobacco Use (All prior to encounter date) This section includes the most current, and the historical, smoking and tobacco-related health factors from the [place] facility where the Encounter took place.Current Smoking Status This section includes the most current smoking, or tobacco-related health factor, from the [place] facility where the Encounter took place. Date/Time Current Smoking Status Comment Facility May 26, 2021 03:30 PM VA-TOBACCO FORMER USER [facility] Tobacco Use History This section includes a history of the smoking, or tobacco- related health factors, that were collected on or before the date of the Encounter. The data comes from the [facility] where the Encounter took place. Date/Time Smoking Status/Tobacco Use Comment [facility] it May 26, 2021 03:30 PM VA-TOBACCO QUIT 15 YRS OR MORE [facility] Jul 05, 2020 06:42 PM VA-TOBACCO FORMER USER [facility] Jan 09, 2018 02:01 PM VA-TOBACCO FORMER USER [facility] Jan 09, 2018 02:01 PM VA-TOBACCO QUIT 5 TO < 15 YRS [facility] [...] the Encounter. The data comes from all [place] treatment facilities. Date/Time Radiology Report Provider Source Oct 27, 2021 08:[address] BODY WITH CONTRAST: ELENA MORRIS [facility] ANDER LOCKWOOD [id number] -[birth year]G 24 194 7 M Exm Date: OCT 27, 2021@08:53 Req Phys: ESTELLA LOUISEBERDEMETRIO Vance Madie Loc: [facility] HEM ONC PHONE DANI (Req'g Img Loc: NUC MED Service: Unknown (Case 1909 COMPLETE) PET IMAGE W/CT SKULL-THIGH (NM Detailed) CPT:23188 Reason for Study: pt with non-small cell lung c ancer, also has follicular lymphom; (Case 1910 COMPLETE) F-18 FDG (NM Detailed) CPT: A9552 Clinical History: IS NOT under investigation for COVID-19 or is COVID-19 negative pt with non-small cell lung cancer, also has fo llicular lymphom; now with brain met (resected at [place] )- please eval disease status Responsible provider name a nd phone number to notify for critical findings if other than user placing the order and pager listed below: User placing orders pag er: [phone] LAST CREATININE 1.2 (09/15/21) Report Status: Verified Date Reported: OCT 27, 2021 Date Verified: OCT 27, 2021 Records Associate E-Sig:/ES/ELENA MORRIS MD Report: PET/CT SCAN INDICATION: Patient with non-small cell lung ca ncer, also has follicular lymphoma. Now with brain metastases, resected at [place] 10/07/2021. These evaluate for disease status. COMPARISON: PET/CT dated December 08, 2019. TECHNIQUE: Following the administration of oral contrast , low dose CT images were obtained from the skull bas e to the upper thighs during quiet breathing. 69 minutes follo wing the administration of 12.1 mCi of F-18 FDG into the PowerPort, PET imaging was performed from the skull base to th e upper thighs. Blood glucose: 109 mg/dl. Dosimetry: Total DLP 643.11 mGy*cm. FINDINGS: HEAD AND NECK: No compelling FDG avid lesions w ithin the head and neck. A partially visualized area of decreased radiot racer uptake in the left frontal region may be related to repor tedly recent resection of a brain metastases. CHEST: Evaluation of the lungs limited secondar y to respiratory motion. Within this limitation, no compelling FDG avid lesions identified within the chest to suggest disease recurrence or metastases. A previously identified FDG avid right lower lo be pulmonary nodule has been resected in the interval. Posts urgical changes right hemithorax. Previously noted FDG uptake within hilar and me diastinal lymph nodes has either resolved or is barely visible. Central venous access catheter from the right c hest wall with the tip in the atriocaval junction. Please note that patient had a dedicated CT gibran on 09/15/2021 for detailed description of radiographic findings. ABDOMEN AND PELVIS: No FDG avid hepatic lesion. Adrenal uptake seems within physiologic limits bilaterally. Splenic uptake is within physiologic limits. Mild to moderate FDG uptake is seen in several prominent mesenteric lymph nodes, for example SUV max 4.1 image 210. The FDG uptake is new compared to the prior PET/CT exam. A focus of FDG uptake in the pericaval region S UV max 4.2 image 219 is noted. This is just above the bifurcatio n. When correlating with the CT from September 15, 2021, this seems to be related to a prominent pericaval lymph node, fo r example series 2 image 424. This is new/more prominent compared to the prior PET/CT. There appears to be FDG uptake in several of th e prominent left pelvic/iliac lymph nodes described on the prior CT, for example SUV max 5.7 left external iliac lymph node. The se lymph nodes are not well characterized on today's nonoptimized CT. Overall, number of FDG avid lymph nodes in the left pelv is as well as the extent/intensity of FDG uptake appears less pro minent compared to the prior PET/CT. No additional FDG avid lesions identified withi n the abdomen and pelvis. Please note that the patient had a dedicated CT of the abdomen and pelvis 09/15/2021 for detailed description of radiographic findings. MUSCULOSKELETAL: No FDG avid osseous lesion is identified on today's exam. Incidental note is made of left total hip arthr oplasty. Impression: 1. FDG uptake associated with mesenteric, peric aval and left pelvic lymph nodes as described above. This may be related to patient's low-grade lymphoma, or inflammatory i n etiology, or combination of both. Metastatic disease seems t o be less likely. 2. Please see full report for details and addit ional findings. Primary Diagnostic Code: SIGNIFICANT ABNORMALIT Y, ATTN NEEDED Primary Interpreting Staff: ELENA MORRIS MD, RADIOLOGY STAFF PHYSICIAN (V erifier) /LILLIAN Sep 15, 2021 10:[address] (CAP) CHEST/ABD/PELVIS (P): DAIGNAULT,C ORY P [facility] ANDER LOCKWOOD [id number] -[birth year], [birth year] 7 M Exm Date: SEP 15, 2021@10:12 Req Phys: CHACHO GOMEZ Pat Loc: [facility] HEM ONC PHON E PATRICIA (Req'g Img Loc: CT IMAGING Service: Unknown (Case 1583 COMPLETE) CT (CAP) CHEST W CONTRAST ( CT Detailed) CPT:11603 Contrast Media : Non-ionic Iodinated Reason for Study: follicular lymphoma, NSCLC, R renal lesion (Case 1584 COMPLETE) CT (CAP) ABDOMEN/PELVIS W C ONTRAS(CT Detailed) CPT:19080 Contrast Media : Non-ionic Iodinated Clinical History: [place] IS NOT under investigation for COVID-19 or [...] pager listed below: User placing orders pager: [phone] LAST 3: Collection DT Specimen Test Name [...] 15, 2021 Date Verified: SEP 15, 2021 Records Associate E-Sig:/ES/JASPREET DACOSTA MD Report: EXAM: CT chest, [...] Staff: JASPREET DACOSTA MD, STAFF NUCLEAR RADIOLOGIST (Records Associate) /CPD Pathology Reports: +/- 30 days of the encounter Pathology Reports For cases when an order for pathology services may have been completed prior to the date of the Encounter, the report list includes the Pathology Reports that were completed up to 30 days before date of the Encounter. For cases when an order for pathology services may have been completed after the date of the Encounter, the report list also includes the Pathology Reports that were completed up to 30days after date of the Encounter. The data comes from all [place] treatment facilities. Date/Time Pathology Report Provider Source Oct 21, 2021 02:36 LR SURGICAL PATHOLOGY REPORT: MIGUELITO HEWITT [facility] LOCAL TITLE: LR SURGICAL PATHOLOGY REPORT STANDARD TITLE: PATHOLOGY REPORT DATE OF NOTE: OCT 21, 2021@14:36:45 ENTRY DATE: OCT 21, 2021@14:36:45 AUTHOR: MIGUELITO HEWITT EXP COSIGNER: URGENCY: STATUS: COMPLETED $APHDR Reporting Lab: [facility] [CLIA# [id number]] [place] [address] - - - - - - - - - - - - - - - - - - - - - - - - - - - - - - - - - - - - - - - - MEDICAL RECORD SURGICAL PATHOLOGY - - - - - - - - - - - - - - - - - - - - - - - - - - - - - - - - - - - - - - - - PATHOLOGY REPORT Accession No. [id number] - - - - - - - - - - - - - - - - - - - - - - - - - - - - - - - - - - - - - - - - $TEXT Submitted by: HEM/ONC Date obtained: Oct 21 2 - - - - - - - - - - - - - - - - - - - - - - - - - - - - - - - - - - - - - - - - Specimen (Received Oct 21, 2021 13:21): REVIEW 4 OUTSIDE SLIDES LABELED: [id number] - - - - - - - - - - - - - - - - - - - - - - - - - - - - - - - - - - - - - - - - BRIEF CLINICAL HISTORY: - - - - - - - - - - - - - - - - - - - - - - - - - - - - - - - - - - - - - - - - PREOPERATIVE DIAGNOSIS: - - - - - - - - - - - - - - - - - - - - - - - - - - - - - - - - - - - - - - - - OPERATIVE FINDINGS: - - - - - - - - - - - - - - - - - - - - - - - - - - - - - - - - - - - - - - - - POSTOPERATIVE DIAGNOSIS: Surgeon/physician: =-=-=-=-=-=-=-=-=-=-=-=-=-=- =-=-=-=-=-=-=-=-=-=-=-=-=-=-=-=-=-=-=-=-=-=-=-=-=-= - - - - - - - - - - - - - - - - - - - - - - - - - - - - - - - - - - - - - - - - PATHOLOGY REPORT Accession No. [id number] - - - - - - - - - - - - - - - - - - - - - - - - - - - - - - - - - - - - - - - - GROSS DESCRIPTION: The requisition form and specimen identificatio n is confirmed. The specimen is received labeled [id number] wit h accompanying report dated 10/07/2021. Submitted are 4 [facility] After review the material is returned to: [facility] [address] [place] Division [place] [address] MICROSCOPIC DESCRIPTION: Microscopic examination performed. BB DIAGNOSIS ([id number]; 10/07/2021): A. and B. Brain, left frontal lesion, biopsyy- - Metastatic adenocarcinoma with mucinous featu res, compatible with patient's known lung primary COMMENT: Per report, immunohistochemical stains performed. The tumor was positive for AE1/AE3 and CK7; and negative fo T TF1, P40, S100, SOX10 and CDX2. The immunohistochemical and morphologic e valuation support the diagnosis. /shalonda/ MIGUELITO HEWITT MD STAFF PATHOLOGIST Signed Oct 21, 2021@14:36 Performing Laboratory: Surgical Pathology Report Performed By: [facility] [CLIA# [id number]] [place] [address] $FTR - - - - - - - - - - - - - - - - - - - - - - - - - - - - - - - - - - - - - - - - (End of report) MIGUELITO HEWITT MD bcb Date Oct 21, 2021 - - - - - - - - - - - - - - - - - - - - - - - - - - - - - - - - - - - - - - - - ANDER LOCKWOOD STANDARD FORM 515 ID:[id number] SEX:M :1945 AGE: 76 LOC: [id number] PCP: Liam Mejia MD /shalonda/ MIGUELITO HEWITT MD STAFF PATHOLOGIST Signed: 10/21/2021 14:36 Encounter Notes: All associated encounter notes This section contains the clinical notes associated to the Encounter. Date/Time Encounter Note(s) Provider Source Oct 03, 2021 01:42 PM NONVA NOTE: ZAC JO [facility] LOCAL TITLE: [facility] CARE-ROB SELF P RESENTING CARE COORD PLAN TERRY RYAN STANDARD TITLE: NONVA NOTE DATE OF NOTE: OCT 03, 2021@13:42 ENTRY DATE: OCT 03, 2021@13:42:10 AUTHOR: ZAC JO EXP COSIGNER: URGENCY: STATUS: COMPLETED Emergency Notification Intake Date Presenting to the Facility: Sep Method of Contact: Notified from [facility] worklist Notification ID: [id number] [facility] Referral #: [facility] Name: Hospital: [facility] Address: [address] [place] [address] City: [place] State: [place] Zip Code: [address] Phone : [facility] Facility Point of Contact: Name: MANUEL Chief complaint: ALTERED MENTAL STATUS Primary Diagnosis: Disposition Unknown at time of intake note entry /shalonda/ ZAC JO USER INTERFACE DESIGNER Signed: 10/03/2021 13:45
--- OUTSIDE RECORDS SUMMARY | 2021-11-18 09:27 | XMS_ITS | Encounter Summary ---
:1945 Author Organization [facility] Address [address] [place] [id number] Support Name Relationship Address Phone SILKE LOCKWOOD Unavailable [id number] [place] [address] SILKE LOCKWOOD Unavailable [phone] [place] [address] Insurance Providers: All historical and current Section [...] Victor [place] M[place] Jun 10, [id number] MANDIE Pabon ATIENT [facility] (WNR) ADVANTAGE (WNR) 2019 8 [id number] [phone] ,ANDER Bennett [place] Jun 10, [id number] ASHLEYTROM P ATIENT [facility] (WNR) ADVANTAGE (WNR) 2018 3 [id number] [phone] ,ANDER Bennett Selected Encounter This section includes the information on record at [place] for the Encounter. Date/Time Encounter Type Encounter Reason Provider Source Description Oct 04, 2021 07:51 Outpatient ADMIN PAT ACTIVDAREN COTTRELL PM Encounter (MASNONCT) L IHE Encounter Template Text not used by [place] Plan of Treatment: Future Appointments (+ 6 [...] 20 appointments. The data comes from all [place] treatment [facility]. Appointment Date/Time Appointment Type Appointment Facili ty Name Oct 14, 2021 10:30 AM AMBULATORY - MEDICINE [facility] Oct 25, 2021 12:27 PM AMBULATORY - NONE [facility] Oct 27, 2021 08:30 AM AMBULATORY - MEDICINE [facility] Oct 27, 2021 09:00 AM AMBULATORY - NONE [facility] Nov 02, 2021 09:00 AM AMBULATORY - MEDICINE [facility] Nov 15, 2021 10:00 AM AMBULATORY - NONE [facility] Nov 17, 2021 10:00 AM AMBULATORY - SURGERY [facility] Dec 15, 2021 04:00 PM AMBULATORY - MEDICINE [facility] Active, Pending, and Scheduled Orders This section includes a listing of several types of active, pending, and scheduled orders, including clinic medications orders, diagnostic test orders, procedure orders and consult orders; where the start date of the order is 45 days before the date of the Encounter or 45 days after the date of the Encounter. The data comes from all [place] treatment [facility]. Test Date/Time Test Type Test Details Facility Name Oct 14, 2021 10:49 AM Consult Order [facility] CARE-RADIATION THERAPY Cons Drawing Checker's Choice Nov 17, 2021 10:20 AM Imaging - Magnetic MRI-BRAIN (P) [facility] Resonance Imaging (MRI) Order Lab Results: +/- [...] Reference Range Comment Oct 27, 2021 09:00 [facility] FINGERSTICK GLUCOSE Speci men Type: BLOOD AM Comment: Apolonia hamilton Ordering Provid er: LIAM MEJIA Report Released Date/Time: Oct 27, 2021 01:25 PM Reporting Lab: [facility] [address] [facility] [address] Performing Lab: [facility] [address] [facility] [address] FINGERSTICK GLUCOSE 109 H 70-100 Oct 27, 2021 [facility] COMPREHENSIVE METABOLIC Spec imen Type: PLASMA 08:53 AM PANEL+MG No comment enter ed. Ordering Provid er: DENG LOUISE Report Released Date/Time: Oct 14, 2021 10:46 AM Reporting Lab: [facility] [address] Performing Lab: [facility] [address] CREATININE 1.0 0.7-1.2 UREA NITROGEN 23 8-26 [...] 78 >60 Oct 27, 2021 08:[address] [facility] CBC & DIFF Specim en Type: BLOOD Comment: Automa kerrie Differential Performed Ordering Provid er: DENG LOUISE Report Released Date/Time: Oct 14, 2021 10:46 AM Reporting Lab: [facility] [address] Performing Lab: [facility] [address] WBC 10.67 4.0-11.0 RBC 3.73 L 4.6-6.2 [...] 0.06 0-0.1 Sep 15, 2021 10:[address] [facility] POC CREATININE Specim en Type: BLOOD No comment enter ed. Ordering Provid er: LIAM MEJIA Report Released Date/Time: Sep 15, 2021 10:02 AM Reporting Lab: [facility] [address] [facility] [address] Performing Lab: [facility] [address] [facility] [address] POC CREATININE 1.2 0.6-1.3 Sep 15, 2021 09:[address] [facility] EXTRA MINT TUBE Specim en Type: PLASMA No comment enter ed. Ordering Provid er: LIAM MEJIA Report Released Date/Time: Sep 15, 2021 09:39 AM Reporting Lab: [facility] [address] [facility] [address] Performing Lab: [facility] [address] [facility] [address] EXTRA MINT TUBE RECEIVED Sep 15, 2021 09:[address] [facility] RETICS Specim en Type: BLOOD Comment: Automsegun sy Differential Performed Ordering Provid er: CHACHO GOMEZ Report Released Date/Time: May 21, 2021 03:59 PM Reporting Lab: [facility] [address] [facility] [address] Performing Lab: [facility] [address] [facility] [address] ABS RETIC 0.0751 0.0300-0.1000 .RETICULOCYTE 1.78 0.6-2.0 IMMATURE RETIC 12.5 1.0-14.0 .RETICULOCYTE HE 34.2 28.2-36.6 Sep 15, 2021 [facility] COMPREHENSIVE METABOLIC Spec imen Type: PLASMA 09:35 AM PANEL+MG Comment: Automsegun sy Differential Performed Ordering Provid er: CHACHO GOMEZ Report Released Date/Time: May 21, 2021 03:59 PM Reporting Lab: [facility] [address] [facility] [address] Performing Lab: [facility] Sep 15, 2021 [facility] LD,TOTAL Specimen Typ e: PLASMA 09:35 AM No comment enter ed. Ordering Provid er: CHACHO GOMEZ Report Released Date/Time: May 21, 2021 03:59 PM Reporting Lab: [facility] [address] [facility] [address] Performing Lab: [facility] [address] [facility] [address] LD,TOTAL 148 125-220 Sep 15, 2021 09:[address] [facility] FOLATE Specim en Type: SERUM No comment enter ed. Ordering Provid er: CHACHO GOMEZ Report Released Date/Time: May 21, 2021 03:59 PM Reporting Lab: [facility] [address] Performing Lab: [facility] [address] FOLATE >20.0 >7.0 Sep 15, 2021 09:[address] [facility] IRON GROUP Specim en Type: SERUM No comment enter ed. Ordering Provid er: CHACHO GOMEZ Report Released Date/Time: May 21, 2021 03:59 PM Reporting Lab: [facility] [address] Performing Lab: [facility] [address] IRON 71 65-175 TIBC,CALCULATED 258 250-425 FERRITIN 195.5 21.8-274.7 IRON SATURATION 28 20-50 TRANSFERRIN 206 163-382 Sep 15, 2021 09:[address] [facility] B 12 Specim en Type: SERUM No comment enter ed. Ordering Provid er: CHACHO GOMEZ Report Released Date/Time: May 21, 2021 03:59 PM Reporting Lab: [facility] [address] [facility] [address] Performing Lab: [facility] [address] B 12 [phone] Sep 15, 2021 [facility] LIPID PANEL,NON-FASTING Spec imen Type: PLASMA 09:35 AM Comment: Dee sy Differential Performed Ordering Provid er: LIAM MEJIA E Report Released Date/Time: May 29, 2021 05:51 PM Reporting Lab: [facility] [address] Performing Lab: [facility] Sep 15, 2021 [facility] CBC & DIFF Specimen Typ e: BLOOD 09:35 AM Comment: Dee sy Differential Performed Ordering Provid er: CHACHO GOMEZ Report Released Date/Time: May 21, 2021 03:59 PM Reporting Lab: [facility] [address] Performing Lab: [facility] [address] WBC 7.54 4.0-11.0 RBC 4.22 L 4.6-6.2 [...] HE 34.2 28.2-36.6 Sep 15, 2021 09:35 [facility] EXTRA PURPLE TUBE Specime n Type: BLOOD AM No comment enter ed. Ordering Provid er: LIAM MEJIA Report Released Date/Time: Sep 15, 2021 09:39 AM Reporting Lab: [facility] [address] Performing Lab: [facility] [address] EXTRA PURPLE TUBE RECEIVED Sep 15, 2021 09:35 [facility] TSH W/REFLEX TO FREE Spec imen Type: PLASMA AM T4 No comment enter ed. Ordering Provid er: LIAM MEJIA Report Released Date/Time: May 29, 2021 05:51 PM Reporting [facility] [address] Performing Lab: [facility] [address] TSH 1.72 0.35-4.94 Social History: Smoking Status (Most current) and Tobacco Use (All prior to encounter date) This section includes the most current, and the historical, smoking and tobacco-related health factors from the [facility] where the Encounter took place.Current Smoking Status This section includes the most current smoking, or tobacco-related health factor, from the [facility] where the Encounter took place. Date/Time Current Smoking Status Comment Facility May 26, 2021 03:30 PM VA-TOBACCO FORMER USER [facility] Tobacco Use History This section includes a history of the smoking, or tobacco- related health factors, that were collected on or before the date of the Encounter. The data comes from the [place] facility where the Encounter took place. Date/Time Smoking Status/Tobacco Use Comment Facil ity May 26, 2021 03:30 PM VA-TOBACCO QUIT [address] [facility] Jul 05, 2020 06:42 PM VA-TOBACCO FORMER USER [facility] Jan 09, 2018 02:01 PM VA-TOBACCO FORMER USER [facility] Jan 09, 2018 02:01 [...] ALL of a patient's completed or amended [place] Advance and Rescinded Directives. The entries below indicate that a directive exists for the patient, but an actual copy is not included with this document. The data comes from all [facility]. Date Advance Directives Provider Source July 24, [address] [facility] July 24, 2021 ADVANCE DIRECTIVE DISCUSSION PAPA LEWIS [facility] Radiology Reports: +/- 30 days [...] the Encounter. The data comes from all [place] treatment facilities. Date/Time Radiology Report Provider Source Oct 27, 2021 08:[address] BODY WITH CONTRAST: ELENA MORRIS [facility] ANDER LOCKWOOD RED [id number] -[birth year] 8 M Exm Date: OCT 27, 2021@08:53 Req Phys: DENG LOUISE Loc: [facility] HEM ONC PHONE DANI (Req'g Img Loc: NUC MED Service: Unknown (Case [id number] COMPLETE) PET IMAGE W/CT SKULL-THIGH (NM Detailed) CPT:16640 Reason for Study: pt with non-small cell lung c ancer, also has follicular lymphom; (Case 1910 COMPLETE) F-18 FDG (NM Detailed) CPT: A9552 Clinical History: Rector IS NOT under investigation for COVID-19 or is COVID-19 negative pt with non-small cell lung cancer, also has fo llicular lymphom; now with brain met (resected at [facility] )- please eval disease status Responsible provider name a nd phone number to notify for critical findings if other than user placing the order and pager listed below: User placing orders pag er: [phone] LAST CREATININE 1.2 (09/15/21) Report Status: Verified Date Reported: OCT 27, 2021 Date Verified: OCT 27, 2021 Crude Oil Treater E-Sig:/ES/ELENA MORRIS MD Report: PET/CT SCAN INDICATION: Patient with non-small cell lung ca ncer, also has follicular lymphoma. Now with brain metastases, resected at [facility] 10/07/2021. These evaluate for disease status. COMPARISON: [...] Y, ATTN NEEDED Primary Interpreting Staff: ELENA MRORIS MD, RADIOLOGY STAFF PHYSICIAN (V erifier) /LILLIAN Sep 15, 2021 10:[address] (CAP) CHEST/ABD/PELVIS (P): Dimitri DACOSTA [facility] ANDER LOCKWOOD [id number] -[birth year] 8 M Exm Date: SEP 15, 2021@10:12 Req Phys: CHACHO GOMEZ Pat Loc: [facility] HEM ONC PHON E PATRICIA (Req'g Img Loc: CT IMAGING Service: Unknown (Case 1583 COMPLETE) CT (CAP) CHEST W CONTRAST ( CT Detailed) CPT:43686 Contrast Media : Non-ionic Iodinated Reason for Study: follicular lymphoma, NSCLC, R renal lesion (Case 1584 COMPLETE) CT (CAP) ABDOMEN/PELVIS W C ONTRAS(CT Detailed) CPT:13390 Contrast Media : Non-ionic Iodinated Clinical History: [facility]ector IS NOT under investigation for COVID-19 or [...] pager listed below: User placing orders pager: [phone] LAST 3: Collection DT Specimen Test Name [...] 15, 2021 Date Verified: SEP 15, 2021 Crude Oil Treater E-Sig:/ES/JASPREET DACOSTA MD Report: EXAM: CT chest, [...] Staff: JASPREET DACOSTA MD, STAFF NUCLEAR RADIOLOGIST (Crude Oil Treater) /CPD Pathology Reports: +/- 30 days of [...] the Encounter. The data comes from all [place] treatment facilities. Date/Time Pathology Report Provider Source Oct 21, 2021 02:36 LR SURGICAL PATHOLOGY REPORT: MIGUELITO HEWITT [facility] LOCAL TITLE: LR SURGICAL PATHOLOGY REPORT STANDARD TITLE: PATHOLOGY REPORT DATE OF NOTE: OCT 21, 2021@14:36:45 ENTRY DATE: OCT 21, 2021@14:36:45 AUTHOR: MIGUELITO HEWITT EXP COSIGNER: URGENCY: STATUS: COMPLETED $APHDR Reporting Lab: [facility] [CLIA# [id number]] [place] [address] - - - - - - - [...] 2021 13:21): REVIEW 4 OUTSIDE SLIDES LABELED: [id number] - - - - - - - [...] Submitted are 4 slides receiv ed from [facility]. After review the material is returned to: [facility] [address] [place] Division [place] [address] MICROSCOPIC DESCRIPTION: Microscopic examination performed. BB DIAGNOSIS [...] Performing Laboratory: Surgical Pathology Report Performed By: [facility] [CLIA# [id number]] [place] [address] $FTR - - - - - - [...] - - ANDER LOCKWOOD STANDARD FORM 515 ID:[id number] SEX:M :1945 AGE: 76 LOC: [id number] PCP: Liam Mejia MD /shalonda/ MIGUELITO HEWITT MD STAFF PATHOLOGIST Signed: 10/21/2021 14:36 Encounter Notes: All associated encounter notes This section contains the clinical notes associated to the Encounter. Date/Time Encounter Note(s) Provider Source Oct 03, 2021 07:52 PM NONVA NOTE: MONICA MORAN [facility] LOCAL TITLE: COMMUNITY CARE-ROB SELF PRESENTIN G CARE COORD PLAN M STANDARD TITLE: NONVA NOTE DATE OF NOTE: OCT 03, 2021@19:52 ENTRY DATE: OCT 04, 2021@19:52:10 AUTHOR: MONICA MORAN EXP COSIGNER: URGENCY: STATUS: COMPLETED COMMUNITY CARE-ROB SELF PRESENTING CARE CO ORD PLAN NOTE Has ADDENDA Emergency Notification Intake Date Presenting to the Facility: Sep Method of Contact: Notified from [employer] worklist Notification ID: [id number] [facility] Referral #: [facility] Name: Hospital: [facility] Address: [address] [place] [address] City: [place] State: [place] Zip Code: [address] Phone : [facility] Point of Contact: Name: Phone: Chief complaint: ALTERED MENTAL STATUS Primary Diagnosis: Disposition Admitted Route of Admission: Other: Date of Admission: Sep Admitting Diagnosis: ALTERED MENTAL STATUS Community Care Provider: Brayan Level of Care: /shalonda/ MONICA MORAN RAW SAMPLER Signed: 10/04/2021 19:54 Receipt Acknowledged By: 10/06/2021 08:16 /shalonda/ DAREN HU RN [facility] UTILIZATION MANAGEMENT 10/06/2021 ADDENDUM STATUS: COMPLETED CONTINUED STAY REVIEW Contact Date: Sep Date of Admission: Sep Method of Contact: [facility] Inpatient level of care required: Medicine presents for evaluation of language concerns fou nd to have a tumor with significant associated edema an outside ED. #1 Brain mass in the left frontal lobe, concerni ng for metastatic disease #2 Follicular lymphoma, s/p chemotherapy #3 Lung cancer, s/p resection and chemotherapy #4 Cerebral edema and brain compression secondar y to #1 #5 Aphasia, right sided weakness, and confusion, likely secondary to #1 #6 Gait instability #7 Atrial fibrillation on Eliquis #8 Hyperlipidemia -MRI brain with and without contrast with fiducials to further characterize the lesion seen on CT imaging - CT chest/abdomen/pelvis with contrast to evalu ate for reoccurrence of prior malignancy - leukemia/lymphoma phenotyping by flow cytometr y - PT/OT/PALEOBOTANIST - hold home Eliquis - hold DVT ppx, can consider initiating pending results of CT chest/abdomen/pelvis and possibility of biopsy - Obtain records from [place] - Consider consult with Neurosurgery and Oncolog y versus hematology in the morning pending results of imaging - Continue home atorvastatin, diltiazem, famotid ine, vit D, folic acid, magnesium, and multivitamin /shalonda/ DAREN HU RN [facility] UTILIZATION MANAGEMENT Signed: 10/06/2021 08:21 Receipt Acknowledged By: 10/06/2021 15:15 /shalonda/ MARIA LUZ MANCERA RN RN 10/20/2021 ADDENDUM STATUS: COMPLETED DISCHARGE NOTE CLINICAL CARE COORDINATION INFORMATION Hospital Name: [facility] Admit date: 10-03-21 Discharge date: 10-09-21 Level of Care: ICU Primary Diagnosis: Brain Mass 10/07/2021 LEFT frontal craniotomy for tumor res ection, stealth, Other Issues for Outpatient Follow-up: Neurosurg teddy Kearney receiving follow up with Hem/ONC Discharge Disposition: Home Hospital records sent to [facility] to be uploaded. Re cords also available in [facility] within [facility] Summaries and Do svetlana manning. Please review for plan of care and any follow up needed. Thank you. /shalonda/ DAREN HU RN [facility] UTILIZATION MANAGEMENT Signed: 10/20/2021 08:40
--- OUTSIDE RECORDS SUMMARY | 2021-11-18 09:27 | XMS_ITS | Encounter Summary ---
:1945 Author Organization [facility] Address [address] [place] [id number] Support Name Relationship Address Phone SILKE LOCKWOOD Unavailable [id number] [place] [address] SILKE LOCKWOOD Unavailable [phone] [address] Insurance Providers: All historical and current Section [...] Victor [place] Jun 10, [id number] MANDIE Pabon ATIENT [facility] (WNR) ADVANTAGE (WNR) 2019 8 [id number] [phone] ,ANDER Bennett [place] Jun 10, [id number] ASHLEYTROM P ATIENT [facility] (WNR) ADVANTAGE (WNR) 2017 3 [id number] [phone] ,ANDER Bennett Selected Encounter This section includes the information on record at [place] for the Encounter. Date/Time Encounter Type Encounter Reason Provider Source Description Oct 03, 2021 01:42 Outpatient ADMIN PAT ACTIVDAREN COTTRELL PM Encounter [...] The data comes from all [place] treatment [facility]. Appointment Date/Time Appointment Type Appointment Facili ty Name Oct 04, 2021 07:51 PM AMBULATORY - NONE [facility] Oct 14, 2021 10:30 AM AMBULATORY - MEDICINE [facility] Oct 25, 2021 12:27 PM AMBULATORY - NONE [facility] Oct 27, 2021 08:30 AM AMBULATORY - MEDICINE [facility] Oct 27, 2021 09:00 AM AMBULATORY - NONE [facility] Nov 02, 2021 09:00 AM AMBULATORY - MEDICINE [facility] Nov 15, 2021 10:00 AM AMBULATORY - NONE [facility] Nov 17, 2021 10:00 AM AMBULATORY - SURGERY [facility] Dec 15, 2021 04:00 PM AMBULATORY - MEDICINE [facility] Active, Pending, and Scheduled Orders This section includes a listing of several types of active, pending, and scheduled orders, including clinic medications orders, diagnostic test orders, procedure orders and consult orders; where the start date of the order is 45 days before the date of the Encounter or 45 days after the date of the Encounter. The data comes from all [place] treatment [facility]. Test Date/Time Test Type Test Details Facility Name Oct 14, 2021 10:49 AM Consult Order [facility] CARE-RADIATION THERAPY Cons [employer] Nov 17, 2021 10:20 AM Imaging - Magnetic MRI-BRAIN (P) [facility] Resonance Imaging (MRI) Order Lab Results: +/- [...] Reference Range Comment Oct 27, 2021 09:00 [facility] FINGERSTICK GLUCOSE Speci men Type: BLOOD AM Comment: Apolonia hamilton Ordering Provid er: LIAM MEJIA Report Released Date/Time: Oct 27, 2021 01:25 PM Reporting Lab: [facility] [address] Performing Lab: [facility] [address] FINGERSTICK GLUCOSE 109 H 70-100 Oct 27, 2021 [facility] COMPREHENSIVE METABOLIC Spec imen Type: PLASMA 08:53 AM PANEL+MG No comment enter ed. Ordering Provid er: DENG LOUISE Report Released Date/Time: Oct 14, 2021 10:46 AM Reporting Lab: [facility] [address] Performing Lab: [facility] [address] CREATININE 1.0 0.7-1.2 UREA NITROGEN 23 8-26 [...] 78 >60 Oct 27, 2021 08:53 AM [facility] CBC & DIFF Specim en Type: BLOOD Comment: Automa kerrie Differential Performed Ordering Provid er: DENG LOUISE Report Released Date/Time: Oct 14, 2021 10:46 AM Reporting Lab: [facility] [address] Performing Lab: [facility] [address] WBC 10.67 4.0-11.0 RBC 3.73 L 4.6-6.2 [...] 0.06 0-0.1 Sep 15, 2021 10:02 AM [facility] POC CREATININE Specim en Type: BLOOD No comment enter ed. Ordering Provid er: LIAM MEJIA Report Released Date/Time: Sep 15, 2021 10:02 AM Reporting Lab: [facility] [address] [facility] [address] Performing Lab: [facility] [address] [facility] [address] POC CREATININE 1.2 0.6-1.3 Sep 15, 2021 09:35 AM [facility] EXTRA MINT TUBE Specim en Type: PLASMA No comment enter ed. Ordering Provid er: LIAM MEJIA Report Released Date/Time: Sep 15, 2021 09:39 AM Reporting Lab: [facility] [address] [facility] [address] Performing Lab: [facility] [address] EXTRA MINT TUBE RECEIVED Sep 15, 2021 [facility] COMPREHENSIVE METABOLIC Spec imen Type: PLASMA 09:35 AM PANEL+MG Comment: Automsegun sy Differential Performed Ordering Provid er: CHACHO GOMEZ Report Released Date/Time: May 21, 2021 03:59 PM Reporting Lab: [facility] [address] Performing Lab: [facility] Sep 15, 2021 [facility] RETICS Specimen Typ e: BLOOD 09:35 AM Comment: Automsegun sy Differential Performed Ordering Provid er: CHACHO GOMEZ Report Released Date/Time: May 21, 2021 03:59 PM Reporting Lab: [facility] [address] [facility] [address] Performing Lab: [facility] [address] [facility] [address] ABS RETIC 0.0751 0.0300-0.1000 .RETICULOCYTE 1.78 0.6-2.0 IMMATURE RETIC 12.5 1.0-14.0 .RETICULOCYTE HE 34.2 28.2-36.6 Sep 15, 2021 09:35 AM [facility] LD,TOTAL Specim en Type: PLASMA No comment enter ed. Ordering Provid er: CHACHO GOMEZ Report Released Date/Time: May 21, 2021 03:59 PM Reporting Lab: [facility] [address] [facility] [address] Performing Lab: [facility] [address] [facility] [address] LD,TOTAL 148 125-220 Sep 15, 2021 09:35 AM [facility] FOLATE Specim en Type: SERUM No comment enter ed. Ordering Provid er: CHACHO GOMEZ Report Released Date/Time: May 21, 2021 03:59 PM Reporting Lab: [facility] [address] [facility] [address] Performing Lab: [facility] [address] [facility] [address] FOLATE >20.0 >7.0 Sep 15, 2021 09:35 AM [facility] B 12 Specim en Type: SERUM No comment enter ed. Ordering Provid er: CHACHO GOMEZ Report Released Date/Time: May 21, 2021 03:59 PM Reporting Lab: [facility] [address] [facility] [address] Performing Lab: [facility] [address] [address] [facility] [address] B 12 [phone] Sep 15, 2021 09:35 AM [facility] IRON GROUP Specim en Type: SERUM No comment enter ed. Ordering Provid er: CHACHO GOMEZ Report Released Date/Time: May 21, 2021 03:59 PM Reporting Lab: [facility] [address] [facility] [address] Performing Lab: [facility] [address] [facility] [address] IRON 71 65-175 TIBC,CALCULATED 258 250-425 FERRITIN 195.5 21.8-274.7 IRON SATURATION 28 20-50 TRANSFERRIN 206 163-382 Sep 15, 2021 [facility] LIPID PANEL,NON-FASTING Spec imen Type: PLASMA 09:35 AM Comment: Automsegun sy Differential Performed Ordering Provid er: LIAM MEJIA Report Released Date/Time: May 29, 2021 05:51 PM Reporting Lab: [facility] [address] [facility] [address] Performing Lab: [facility] Sep 15, 2021 [facility] TSH W/REFLEX TO FREE T4 Spec imen Type: PLASMA 09:35 AM No comment enter ed. Ordering Provid er: LIAM MEJIA Report Released Date/Time: May 29, 2021 05:51 PM Reporting Lab: [facility] [address] [facility] [address] Performing Lab: [facility] [address] [facility] [address] TSH 1.72 0.35-4.94 Sep 15, 2021 09:35 [facility] EXTRA PURPLE TUBE Specime n Type: BLOOD AM No comment enter ed. Ordering Provid er: LIAM MEJIA Report Released Date/Time: Sep 15, 2021 09:39 AM Reporting Lab: [facility] [place] [facility] [address] Performing Lab: [facility] [address] EXTRA PURPLE TUBE RECEIVED Sep 15, 2021 09:35 AM [facility] CBC & DIFF Specim en Type: BLOOD Comment: Automa kerrie Differential Performed Ordering Provid er: CHACHO GOMEZ Report Released Date/Time: May 21, 2021 03:59 PM Reporting Lab: [facility] [place] [facility] [address] Performing Lab: [facility] [facility] [address] WBC 7.54 4.0-11.0 RBC 4.22 L 4.6-6.2 [...] 2021 03:30 PM VA-TOBACCO FORMER USER [facility] Tobacco Use History This section includes a history of the smoking, or tobacco- related health factors, that were collected on or before the date of the Encounter. The data comes from the [facility] where the Encounter took place. Date/Time Smoking Status/Tobacco Use Comment [facility] it May 26, 2021 03:30 PM VA-TOBACCO QUIT 15 YRS OR MORE [facility] Jul 05, 2020 06:42 PM VA-TOBACCO FORMER USER [facility] Jan 09, 2018 02:01 PM VA-TOBACCO FORMER USER [facility] Jan 09, 2018 02:01 PM VA-TOBACCO QUIT 5 TO < 15 YRS [facility] [...] 24, 2021 ADVANCE DIRECTIVE DISCUSSION [facility] Radiology Reports: +/- 30 days [...] the Encounter. The data comes from all [place] treatment facilities. Date/Time Radiology Report Provider Source Oct 27, 2021 08:[address] BODY WITH CONTRAST: ELENA MORRIS [facility] ANDER LOCKWOOD [id number] -[birth year]G 24 [birth year] 7 M Exm Date: OCT 27, 2021@08:53 Req Phys: ESTELLA LOUISEBERDEMETRIO Vance Madie Loc: [facility] HEM ONC PHONE DANI (Req'g Img Loc: NUC MED Service: Unknown (Case [id number] COMPLETE) PET IMAGE W/CT SKULL-THIGH (NM Detailed) CPT:97777 Reason for Study: pt with non-small cell lung c ancer, also has follicular lymphom; (Case 1910 COMPLETE) F-18 FDG (NM Detailed) CPT: A9552 Clinical History: IS NOT under investigation for COVID-19 or is COVID-19 negative pt with non-small cell lung cancer, also has fo llicular lymphom; now with brain met (resected at [facility] )- please eval disease status Responsible provider name a nd phone number to notify for critical findings if other than user placing the order and pager listed below: User placing orders pag er: [phone] LAST CREATININE 1.2 (09/15/21) Report Status: Verified Date Reported: OCT 27, 2021 Date Verified: OCT 27, 2021 Fisher Spear E-Sig:/ES/ELENA MORRIS MD Report: PET/CT SCAN INDICATION: Patient with non-small cell lung ca ncer, also has follicular lymphoma. Now with brain metastases, resected at [facility] 10/07/2021. These evaluate for disease status. COMPARISON: [...] CT (CAP) CHEST/ABD/PELVIS (P): DAIGNAULT,C ORY P [facility] ANDER LOCKWOOD [id number] -[birth year], [birth year] 7 M Exm Date: SEP 15, 2021@10:12 Req Phys: CHACHO GOMEZ Pat Loc: [facility] HEM ONC PHON E PATRICIA (Req'g Img Loc: CT IMAGING Service: Unknown (Case 1583 COMPLETE) CT (CAP) CHEST W CONTRAST ( CT Detailed) CPT:67427 Contrast Media : Non-ionic Iodinated Reason for Study: follicular lymphoma, NSCLC, R renal lesion (Case 1584 COMPLETE) CT (CAP) ABDOMEN/PELVIS W C ONTRAS(CT Detailed) CPT:80241 Contrast Media : Non-ionic Iodinated Clinical History: [place] IS NOT under investigation for COVID-19 or [...] pager listed below: User placing orders pager: [phone] LAST 3: Collection DT Specimen Test Name [...] 15, 2021 Date Verified: SEP 15, 2021 Fisher Spear E-Sig:/ES/JASPREET DACOSTA MD Report: EXAM: CT chest, [...] Staff: JASPREET DACOSTA MD, STAFF NUCLEAR RADIOLOGIST (Fisher Spear) /CPD Pathology Reports: +/- 30 days of [...] the Encounter. The data comes from all [place] treatment facilities. Date/Time Pathology Report Provider Source Oct 21, 2021 02:36 LR SURGICAL PATHOLOGY REPORT: MIGUELITO HEWITT [facility] LOCAL TITLE: LR SURGICAL PATHOLOGY REPORT STANDARD TITLE: PATHOLOGY REPORT DATE OF NOTE: OCT 21, 2021@14:36:45 ENTRY DATE: OCT 21, 2021@14:36:45 AUTHOR: MIGUELITO HEWITT EXP COSIGNER: URGENCY: STATUS: COMPLETED $APHDR Reporting Lab: [facility] [CLIA# [id number]] [place] [address] - - - - - - - [...] Submitted are 4 slides receiv ed from [facility]. After review the material is returned to: [facility] [address] [place] Division [place] [address] MICROSCOPIC DESCRIPTION: Microscopic examination performed. BB DIAGNOSIS [...] Performing Laboratory: Surgical Pathology Report Performed By: [facility] [CLIA# [id number]] [place] [address] $FTR - - - - - - [...] - - ANDER LOCKWOOD STANDARD FORM 515 ID:[id number] SEX:M :1945 AGE: 76 LOC: 94617 PCP: Liam Mejia MD /shalonda/ MIGUELITO HEWITT MD STAFF PATHOLOGIST Signed: 10/21/2021 14:36 Encounter Notes: All associated encounter notes This section contains the clinical notes associated to the Encounter. Date/Time Encounter Note(s) Provider Source Oct 03, 2021 01:44 PM NONVA NOTE: MEAGAN ROSENTHAL [facility] LOCAL TITLE: COMMUNITY CARE-ROB SELF PRESENTIN G CARE COORD PLAN STANDARD TITLE: NONVA NOTE DATE OF NOTE: OCT 03, 2021@13:44 ENTRY DATE: OCT 03, 2021@13:44:21 AUTHOR: MEAGAN ROSENTHAL EXP COSIGNER: URGENCY: STATUS: COMPLETED COMMUNITY CARE-ROB SELF PRESENTING CARE CO ORD PLAN NOTE Has ADDENDA Emergency Notification Intake Date Presenting to the Facility: Sep Method of Contact: Phone Centralized Call Center Notified [facility] Name: Hospital: [facility] Address: [address] [place] [address] City: [place] State: [place] Zip Code: [address] Phone : [facility] Point of Contact: [facility] Chief complaint: ALTERED MENTAL STATUS DUE TO A BRAIN TUMOR Primary Diagnosis: Disposition Unknown at time of intake note entry /shalonda/ MEAGAN ROSENTHAL MEDICAL RISK CONTROL MANAGER Signed: 10/03/2021 13:47 Receipt Acknowledged By: 10/03/2021 14:05 /shalonda/ DAREN HU [facility] 10/03/2021 ADDENDUM STATUS: COMPLETED Returned call to Dina and let her know that the re are no beds available for transfer to [facility] at this time. [place] does n ot require ICU level of care. /shalonda/ DAREN HU RN [facility] Signed: 10/03/2021 14:08 10/06/2021 ADDENDUM STATUS: COMPLETED Transfer to [facility]. /shalonda/ DAREN HU RN [facility] Signed: 10/06/2021 08:13
--- OUTSIDE RECORDS SUMMARY | 2021-11-18 09:27 | XMS_ITS | Encounter Summary ---
:1945 Author Organization [facility] Address [address] [place] [address] Support Name Relationship Address Phone SILKE LOCKWOOD Unavailable [id number] [place] [phone] SILKE LOCKWOOD Unavailable [id number] [place] [phone] Insurance Providers: All historical and current Section [...] [place] Jun 10, [id number]on [facility] (WNR) ADVANTAGE (WNR) 2019 8 [id number] [phone] ,ANDER Bennett [place] Jun 10, [id number] [facility] (WNR) 2018 3 [id number] [phone] ,ANDER Bennett Selected Encounter This section includes the information on record at [facility] for the Encounter. Date/Time Encounter Type Encounter Description Reason Provider Source Oct 12, 2021 09:38 Outpatient Encounter TELEPHONE TRIAGE AM IHE Encounter [...] 14, 2021 10:30 AM AMBULATORY - MEDICINE [facility] Oct 25, 2021 12:27 PM AMBULATORY - NONE [facility] Oct 27, 2021 08:30 AM AMBULATORY - MEDICINE [facility] Oct 27, 2021 09:00 AM AMBULATORY - NONE [facility] Nov 02, 2021 09:00 AM AMBULATORY - MEDICINE [facility] Nov 15, 2021 10:00 AM AMBULATORY - NONE [facility] Nov 17, 2021 10:00 AM AMBULATORY - SURGERY [facility] Dec 15, 2021 04:00 PM AMBULATORY - MEDICINE [facility] Active, Pending, and Scheduled Orders [...] The data comes from all [facility] treatment [facility]. Test Date/Time Test Type Test Details Facility Name Oct 14, 2021 10:49 AM Consult Order [facility] CARE-RADIATION THERAPY Cons Field Observer's Choice Nov 17, 2021 10:20 AM Imaging - Magnetic MRI-BRAIN (P) [facility] Resonance Imaging (MRI) Order Lab Results: +/- 30 days of the encounter This section includes the Chemistry and Hematology Lab Results on record with [facility] for the patient. Radiology Reports and Pathology Reports are provided separately, in subsequent sections.Lab Results This section contains the Chemistry/Hematology Results that were resulted 30 days before or 30 daysafter the date of the Encounter. Date/Time Source Result Type Result - Unit Interpretation Reference Range Comment Oct 27, 2021 09:00 [facility] FINGERSTICK GLUCOSE Speci men Type: BLOOD AM Comment: Apolonia R esult Ordering Provid er: LIAM MEJIA Report Released Date/Time: Oct 27, 2021 01:25 PM Reporting Lab: [facility] [address] [facility] [address] Performing Lab: [facility] [address] [facility] [address] FINGERSTICK GLUCOSE 109 H 70-100 Oct 27, 2021 [facility] COMPREHENSIVE METABOLIC Spec imen Type: PLASMA 08:53 AM PANEL+MG No comment enter ed. Ordering Provid er: DENG LOUISE Report Released Date/Time: Oct 14, 2021 10:46 AM Reporting Lab: [facility] [address] Performing Lab: [facility] [address] CREATININE 1.0 0.7-1.2 UREA NITROGEN 23 8-26 [...] 78 >60 Oct 27, 2021 08:53 AM [facility] CBC & DIFF Specim en Type: BLOOD Comment: Automa kerrie Differential Performed Ordering Provid er: DENG LOUISE Report Released Date/Time: Oct 14, 2021 10:46 AM Reporting Lab: [facility] [address] Performing Lab: [facility] [address] WBC 10.67 4.0-11.0 RBC 3.73 L 4.6-6.2 [...] 0.06 0-0.1 Sep 15, 2021 10:02 AM [facility] POC CREATININE Specim en Type: BLOOD No comment enter ed. Ordering Provid er: LIAM MEJIA Report Released Date/Time: Sep 15, 2021 10:02 AM Reporting Lab: [facility] [address] [facility] [address] Performing Lab: [facility] [address] [facility] [address] POC CREATININE 1.2 0.6-1.3 Sep 15, 2021 09:35 AM [facility] EXTRA MINT TUBE Specim en Type: PLASMA No comment enter ed. Ordering Provid er: LIAM MEJIA Report Released Date/Time: Sep 15, 2021 09:39 AM Reporting Lab: [facility] [address] [facility] [address] Performing Lab: [facility] [address] EXTRA MINT TUBE RECEIVED Sep 15, 2021 [facility] COMPREHENSIVE METABOLIC Spec imen Type: PLASMA 09:35 AM PANEL+MG Comment: Automa kerrie Differential Performed Ordering Provid er: CHACHO GOMEZ Report Released Date/Time: May 21, 2021 03:59 PM Reporting Lab: [facility] [address] Performing Lab: [facility] Sep 15, 2021 [facility] RETICS Specimen Typ e: BLOOD 09:35 AM Comment: Automsegun sy Differential Performed Ordering Provid er: CHACHO GOMEZ Report Released Date/Time: May 21, 2021 03:59 PM Reporting Lab: [facility] [address] [facility] [address] Performing Lab: [facility] [address] [facility] [address] ABS RETIC 0.0751 0.0300-0.1000 .RETICULOCYTE 1.78 0.6-2.0 IMMATURE RETIC 12.5 1.0-14.0 .RETICULOCYTE HE 34.2 28.2-36.6 Sep 15, 2021 09:35 AM [facility] LD,TOTAL Specim en Type: PLASMA No comment enter ed. Ordering Provid er: CHACHO GOMEZ Report Released Date/Time: May 21, 2021 03:59 PM Reporting Lab: [facility] [address] [facility] [address] Performing Lab: [facility] [address] [facility] [address] LD,TOTAL 148 125-220 Sep 15, 2021 09:35 AM [facility] FOLATE Specim en Type: SERUM No comment enter ed. Ordering Provid er: CHACHO GOMEZ Report Released Date/Time: May 21, 2021 03:59 PM Reporting Lab: [facility] [address] [facility] [address] Performing Lab: [facility] [address] [facility] [address] FOLATE >20.0 >7.0 Sep 15, 2021 09:35 AM [facility] B 12 Specim en Type: SERUM No comment enter ed. Ordering Provid er: CHACHO GOMEZ Report Released Date/Time: May 21, 2021 03:59 PM Reporting Lab: [facility] [address] [facility] [address] Performing Lab: [facility] [address] [facility] [address] B 12 559 213-816 Sep 15, 2021 09:35 AM [facility] IRON GROUP Specim en Type: SERUM No comment enter ed. Ordering Provid er: CHACHO GOMEZ Report Released Date/Time: May 21, 2021 03:59 PM Reporting Lab: [facility] [address] [facility] [address] Performing Lab: [facility] [address] [facility] [address] IRON 71 65-175 TIBC,CALCULATED 258 250-425 FERRITIN 195.5 21.8-274.7 IRON SATURATION 28 20-50 TRANSFERRIN 206 163-382 Sep 15, 2021 [facility] LIPID PANEL,NON-FASTING Spec imen Type: PLASMA 09:35 AM Comment: Dee Pierre Performed Ordering Provid er: LIAM MEJIA Report Released Date/Time: May 29, 2021 05:51 PM Reporting Lab: [facility] [address] [facility] [address] Performing Lab: [facility] Sep 15, 2021 [facility] TSH W/REFLEX TO FREE T4 Spec imen Type: PLASMA 09:35 AM No comment enter ed. Ordering Provid er: LIAM MEJIA Report Released Date/Time: May 29, 2021 05:51 PM Reporting Lab: [facility] [address] [facility] [address] Performing Lab: [facility] [address] [facility] [address] TSH 1.72 0.35-4.94 Sep 15, 2021 09:35 [facility] EXTRA PURPLE TUBE Specime n Type: BLOOD AM No comment enter ed. Ordering Provid er: LIAM MEJIA Report Released Date/Time: Sep 15, 2021 09:39 AM Reporting Lab: [facility] [address] [facility] [address] Performing Lab: [facility] [address] [facility] [address] EXTRA PURPLE TUBE RECEIVED Sep 15, 2021 09:35 AM [facility] CBC & DIFF Specim en Type: BLOOD Comment: Automa kerrie Differential Performed Ordering Provid er: CHACHO GOMEZ Report Released Date/Time: May 21, 2021 03:59 PM Reporting Lab: [facility] [address] [facility] [address] Performing Lab: [facility] [address] [facility] [address] WBC 7.54 4.0-11.0 RBC 4.22 L 4.6-6.2 [...] smoking and tobacco-related health factors from the [facility] where the Encounter took place.Current Smoking Status This section includes the most current smoking, or tobacco-related health factor, from the [facility] facility where the Encounter took place. Date/Time Current Smoking Status Comment Facility May 26, 2021 03:30 PM [facility]CO [facility] Tobacco Use History This section includes a history of the smoking, or tobacco- related health factors, that were collected on or before the date of the Encounter. The data comes from the [facility] facility where the Encounter took place. Date/Time Smoking Status/Tobacco Use Comment Facil ity May 26, 2021 03:30 PM VA-TOBACCO QUIT 15 YRS OR MORE [facility] Jul 05, 2020 06:42 PM VA-TOBACCO FORMER USER [facility] Jan 09, 2018 02:01 PM VA-TOBACCO FORMER USER [facility] Jan 09, 2018 02:01 PM VA-TOBACCO QUIT 5 TO < 15 YRS [facility] [...] this document. The data comes from all [facility]. Date Advance Directives Provider Source July 24, 2021 ADVANCE DIRECTIVE DISCUSSION [facility] July 24, 2021 ADVANCE DIRECTIVE [facility] Radiology Reports: +/- 30 days of [...] PET CT BODY WITH CONTRAST: ELENA MORRIS [facility] ANDER LOCKWOOD RED [id number] -[birth year] 7 M Exm Date: OCT 27, 2021@08:53 Req Phys: DENG LOUISE Loc: [facility] HEM ONC PHONE DANI (Req'g Img Loc: NUC MED Service: Unknown (Case [id number] COMPLETE) PET IMAGE W/CT SKULL-THIGH (NM Detailed) CPT:34619 Reason for Study: pt with non-small cell lung c ancer, also has follicular lymphom; (Case 191 COMPLETE) F-18 FDG (NM Detailed) CPT: A9552 Clinical History: IS NOT under investigation for COVID-19 or is COVID-19 negative pt with non-small cell lung cancer, also has fo llicular lymphom; now with brain met (resected at [facility] )- please eval disease status Responsible provider name a nd phone number to notify for critical findings if other than user placing the order and pager listed below: User placing orders pag er: [phone] LAST CREATININE 1.2 (09/15/21) Report Status: Verified Date Reported: OCT 27, 2021 Date Verified: OCT 27, 2021 Tetryl Blender Operator E-Sig:/ES/ELENA MORRIS MD Report: PET/CT SCAN INDICATION: Patient with non-small cell lung ca ncer, also has follicular lymphoma. Now with brain metastases, resected at [facility] 10/07/2021. These evaluate for disease status. COMPARISON: [...] that patient had a dedicated CT gibran st on 09/15/2021 for detailed description of radiographic [...] AM CT (CAP) CHEST/ABD/PELVIS (P): Dimitri DACOSTA [facility] ANDER LOCKWOOD [id number] -[birth year], [birth year] 7 M Exm Date: SEP 15, 2021@10:12 Req Phys: PATRICIA,CHACHO Pat Loc: [facility] HEM ONC PHON E PATRICIA (Req'g Img Loc: CT IMAGING Service: Unknown (Case [id number] COMPLETE) CT (CAP) CHEST W CONTRAST ( CT Detailed) CPT:41710 Contrast Media : Non-ionic Iodinated Reason for Study: follicular lymphoma, NSCLC, R renal lesion (Case 1584 COMPLETE) CT (CAP) ABDOMEN/PELVIS W C ONTRAS(CT Detailed) CPT:99863 Contrast Media : Non-ionic Iodinated Clinical History: [place] IS NOT under investigation for COVID-19 or [...] pager listed below: User placing orders pager: [phone] LAST 3: Collection DT Specimen Test Name [...] 15, 2021 Date Verified: SEP 15, 2021 Tetryl Blender Operator E-Sig:/ES/JASPREET DACOSTA MD Report: EXAM: CT [...] Staff: JASPREET DACOSTA MD, STAFF NUCLEAR RADIOLOGIST (Tetryl Blender Operator) /CPD Pathology Reports: +/- 30 days of [...] comes from all [facility] treatment facilities. Date/Time Pathology Report Provider Source Oct 21, 2021 02:36 [facility] SURGICAL PATHOLOGY REPORT: JERRICA HEWITT [facility] LOCAL TITLE: LR SURGICAL PATHOLOGY REPORT STANDARD TITLE: PATHOLOGY REPORT DATE OF NOTE: OCT 21, 2021@14:36:45 ENTRY DATE: OCT 21, 2021@14:36:45 AUTHOR: JERRICA HEWITT EXP COSIGNER: URGENCY: STATUS: COMPLETED $APHDR Reporting Lab: [facility] [CLIA# [id number]] [place] [address] - - - - - - - [...] Submitted are 4 slides receiv ed from [facility]. After review the material is returned to: [facility] [address] [place] Division [place] [address] MICROSCOPIC DESCRIPTION: Microscopic examination performed. BB DIAGNOSIS ([id number]; 10/07/2021): A. and B. Brain, left frontal lesion, biopsyy- - Metastatic adenocarcinoma with mucinous featu res, compatible with patient's known lung primary COMMENT: Per report, immunohistochemical stains performed. The tumor was positive for AE1/AE3 and CK7; and negative fo T TF1, P40, S100, SOX10 and CDX2. The immunohistochemical and morphologic e valuation support the diagnosis. /es/ JERRICA HEWITT MD STAFF PATHOLOGIST Signed Oct 21, 2021@14:36 Performing Laboratory: Surgical Pathology Report Performed By: [facility] [CLIA# [id number]] [place] [address] $FTR - - - - - - - - - - - - - - - - - - - - - - - - - - - - - - - - - - - - - - - - (End of report) JERRICA HEWITT MD bcb Date Oct 21, 2021 - - - - - - - - - - - - - - - - - - - - - - - - - - - - - - - - - - - - - - - - ANDER LOCKWOOD STANDARD FORM 515 ID:[id number] SEX:M :1945 AGE: 76 LOC: [id number] PCP: Liam Mejia MD /shalonda/ JERRICA HEWITT MD STAFF PATHOLOGIST Signed: 10/21/2021 14:36 Encounter Notes: All associated encounter notes This section contains the clinical notes associated to the Encounter. Date/Time Encounter Note(s) Provider Source Oct 12, 2021 09:39 AM REPORT OF CONTACT: EDIE DOAN [facility] LOCAL TITLE: PATIENT CONTACT NOTE STANDARD TITLE: REPORT OF CONTACT DATE OF NOTE: OCT 12, 2021@09:39 ENTRY DATE: OCT 12, 2021@09:39:34 AUTHOR: EDIE DOAN EXP COSIGNER: URGENCY: STATUS: COMPLETED PATIENT CONTACT NOTE Has ADDENDA Patient contact Name of : ANDER LOCKWOOD Name/Relationship of Contact if other than Veter an: [facility] Date & Time of Contact: Oct@09:39 Type of Contact: Reason for Contact: Angelita is requesting a call back from P act team in regards to patient stay at [facility]. Angelita states On 10/07/2021 Pt had a mass removed from his jerrica . Angelita is requesting a o rder for speech therapy for Patient. Angelita can be contacted at number above. /shalonda/ EDIE DOAN Advanced Medical Support Assistance Signed: 10/12/2021 09:43 Receipt Acknowledged By: 10/12/2021 10:40 /shalonda/ MARIA LUZ MANCERA RN RN * AWAITING SIGNATURE * LIAM MEJIA 10/12/2021 ADDENDUM STATUS: COMPLETED ELVIRA Goldstein RN contacted regarding above. Pt recently discharged to home from [facility] after s urgery for: Left frontal Lobe brain mass( see 10/06/21 DAREN Haynes RN [facility] note) Pt at home being cared for b y . Angelita had home visit and pt having speech issues, as well as personality changes, is short tempered which is unusual for pt. per [facility] RN- Pt and decline OT/PT but welcome speech the rapy in home. Pt and state they do not need non skilled c are. [facility] [address] [place], [place] [id number] AUTH: [id number] VALID: 2021-07-18 through 2022-01-14 telephone call to pt, generic message left to co ntact PACT for follow up /shalonda/ MARIA LUZ MANCERA RN RN Signed: 10/12/2021 10:55 Receipt Acknowledged By: * AWAITING SIGNATURE * LIAM MEJIA
--- OUTSIDE RECORDS SUMMARY | 2021-11-18 09:28 | XMS_ITS | Encounter Summary ---
:1945 Author Organization [facility] Address [address] [place] [id number] Support Name Relationship Address Phone SILKE LOCKWOOD Unavailable [id number] [place] [phone] SILKE LOCKWOOD Unavailable [phone] [place] [phone] Insurance Providers: All historical and current Section [...] Victor [place] Jun 10, [id number] [facility] [facility]NR) 2020 8 [id number] [phone] ,ANDER Bennett [place] Jun 10, [id number] P ATIENT [facility] (WNR) ADVANTAGE (WNR) 2018 3 [id number] [phone] ,ANDER Bennett Selected Encounter This section includes the information on record at [place] for the Encounter. Date/Time Encounter Type Encounter Reason Provider Source Description Oct 12, 2021 06:44 Outpatient PRIMARY LIAM MEJIA Encounter CARE/MEDICINE IHE Encounter Template Text not used by MI Plan of Treatment: Future Appointments (+ 6 months) and Future Tests (+/- 45 days) The Plan of Treatment section includes future care activities for the patient from all MI treatmentfacilities. This section includes future appointments and future orders which are active, pending orscheduled.Future Appointments This section includes appointments that were scheduled to occur 6 months from the date of the Encounter, up to a maximum of 20 appointments. The data comes from all [place] treatment [facility]. Appointment Date/Time Appointment Type Appointment Facili ty Name Oct 14, 2021 10:30 AM AMBULATORY - MEDICINE [facility] Oct 25, 2021 12:27 PM AMBULATORY - NONE [facility] Oct 27, 2021 08:30 AM AMBULATORY - MEDICINE [facility] Oct 27, 2021 09:00 AM AMBULATORY - NONE [facility] Nov 02, 2021 09:00 AM AMBULATORY - MEDICINE [facility] Nov 15, 2021 10:00 AM AMBULATORY - NONE [facility] Nov 17, 2021 10:00 AM AMBULATORY - SURGERY [facility] S Dec 15, 2021 04:00 PM [...] The data comes from all [place] treatment [facility]. Test Date/Time Test Type Test Details Facility Name Oct 14, 2021 10:49 AM Consult Order [facility] CARE-RADIATION THERAPY Cons Urban [employer] Consultant's Choice Nov 17, 2021 10:20 AM Imaging - Magnetic MRI-BRAIN (P) [facility] Resonance Imaging (MRI) Order Lab Results: [...] Comment Oct 27, 2021 09:00 [facility] FINGERSTICK GLUCOSE Speci men Type: BLOOD AM Comment: Save R esult Ordering Provid er: LIAM MEJIA Report Released Date/Time: Oct 27, 2021 01:25 PM Reporting Lab: [facility] [address] [facility] [address] Performing Lab: [facility] [address] [facility] [address] FINGERSTICK GLUCOSE 109 H 70-100 Oct 27, 2021 [facility] COMPREHENSIVE METABOLIC Spec imen Type: PLASMA 08:53 AM PANEL+MG No comment enter ed. Ordering Provid er: DENG LOUISE Report Released Date/Time: Oct 14, 2021 10:46 AM Reporting Lab: [facility] [address] Performing Lab: [facility] [address] CREATININE 1.0 0.7-1.2 UREA NITROGEN 23 8-26 [...] Oct 27, 2021 08:[address] [facility] CBC & DIFF Specim en Type: BLOOD Comment: Automa kerrie Differential Performed Ordering Provid er: DENG LOUISE Report Released Date/Time: Oct 14, 2021 10:46 AM Reporting Lab: [facility] [address] Performing Lab: [facility] [address] WBC 10.67 4.0-11.0 RBC 3.73 L 4.6-6.2 [...] Sep 15, 2021 10:[address] [facility] POC CREATININE Specim en Type: BLOOD No comment enter ed. Ordering Provid er: LIAM MEJIA Report Released Date/Time: Sep 15, 2021 10:02 AM Reporting [facility] [address] Performing Lab: [facility] [address] POC CREATININE 1.2 0.6-1.3 Sep 15, 2021 09:[address] [facility] EXTRA MINT TUBE Specim en Type: PLASMA No comment enter ed. Ordering Provid er: LIAM MEJIA Report Released Date/Time: Sep 15, 2021 09:39 AM Reporting Lab: [facility] [address] Performing Lab: [facility] [address] EXTRA MINT TUBE RECEIVED Sep 15, 2021 [facility] COMPREHENSIVE METABOLIC Spec imen Type: PLASMA 09:35 AM PANEL+MG Comment: Automsegun sy Differential Performed Ordering Provid er: CHACHO SANFORD Report Released Date/Time: May 21, 2021 03:59 PM Reporting Lab: [facility] [address] Performing Lab: [facility] Sep 15, 2021 [facility] RETICS Specimen Typ e: BLOOD 09:35 AM Comment: Automsegun sy Differential Performed Ordering Provid er: CHACHO SANFORD Report Released Date/Time: May 21, 2021 03:59 PM Reporting Lab: [facility] [address] Performing Lab: [facility] [address] ABS RETIC 0.0751 0.0300-0.1000 .RETICULOCYTE 1.78 0.6-2.0 IMMATURE RETIC 12.5 1.0-14.0 .RETICULOCYTE HE 34.2 28.2-36.6 Sep 15, 2021 09:[address] [facility] LD,TOTAL Specim en Type: PLASMA No comment enter ed. Ordering Provid er: CHACHO SANFORD Report Released Date/Time: May 21, 2021 03:59 PM Reporting Lab: [facility] [address] Performing Lab: [facility] [address] LD,TOTAL 148 125-220 Sep 15, 2021 09:[address] [facility] B 12 Specim en Type: SERUM No comment enter ed. Ordering Provid er: CHACHO SANFORD Report Released Date/Time: May 21, 2021 03:59 PM Reporting Lab: [facility] [address] [facility] [address] Performing Lab: [facility] [address] [facility] [address] B 12 [phone] Sep 15, 2021 09:[address] [facility] FOLATE Specim en Type: SERUM No comment enter ed. Ordering Provid er: CHACHO SANFORD Report Released Date/Time: May 21, 2021 03:59 PM Reporting Lab: [facility] [address] [facility] [address] Performing Lab: [facility] [address] [facility] [address] FOLATE >20.0 >7.0 Sep 15, 2021 09:[address] [facility] IRON GROUP Specim en Type: SERUM No comment enter ed. Ordering Provid er: CHACHO SANFORD Report Released Date/Time: May 21, 2021 03:59 PM Reporting Lab: [facility] [address] [facility] [address] Performing Lab: [facility] [address] [facility] [address] IRON 71 65-175 TIBC,CALCULATED 258 250-425 FERRITIN 195.5 21.8-274.7 IRON SATURATION 28 20-50 TRANSFERRIN [phone] Sep 15, 2021 [facility] LIPID PANEL,NON-FASTING Spec imen Type: PLASMA 09:35 AM Comment: Automsegun sy Differential Performed Ordering Provid er: LIAM MEJIA Report Released Date/Time: May 29, 2021 05:51 PM Reporting Lab: [facility] [address] [facility] [address] Performing Lab: [facility] Sep 15, 2021 [facility] EXTRA PURPLE TUBE Specimen T ype: BLOOD 09:35 AM No comment enter ed. Ordering Provid er: LIAM MEJIA Report Released Date/Time: Sep 15, 2021 09:39 AM Reporting Lab: [facility] [address] [facility] [address] Performing Lab: [facility] [address] [facility] [address] EXTRA PURPLE TUBE RECEIVED Sep 15, 2021 09:35 [facility] TSH W/REFLEX TO FREE Spec imen Type: PLASMA AM T4 No comment enter ed. Ordering Provid er: LIAM MEJIA Report Released Date/Time: May 29, 2021 05:51 PM Reporting Lab: [facility] [address] [facility] [address] Performing Lab: [facility] [address] [facility] [address] TSH 1.72 0.35-4.94 Sep 15, 2021 09:[address] [facility] CBC & DIFF Specim en Type: BLOOD Comment: Automa kerrie Differential Performed Ordering Provid er: CHACHO SANFORD Report Released Date/Time: May 21, 2021 03:59 PM Reporting Lab: [facility] [address] [facility] [address] Performing Lab: [facility] [address] [facility] [address] WBC 7.54 4.0-11.0 RBC 4.22 L 4.6-6.2 [...] smoking and tobacco-related health factors from the [facility] where the Encounter took place.Current Smoking Status This section includes the most current smoking, or tobacco-related health factor, from the [place] facility where the Encounter took place. Date/Time Current Smoking Status Comment Facility May 26, 2021 03:30 PM VA-TOBACCO FORMER USER [facility] Tobacco Use History This section includes a history of the smoking, or tobacco- related health factors, that were collected on or before the date of the Encounter. The data comes from the [place] facility where the Encounter took place. Date/Time Smoking Status/Tobacco Use Comment Facil ity May 26, 2021 03:30 PM VA-TOBACCO QUIT [address] [facility] Jul 05, 2020 06:42 PM VA-TOBACCO FORMER USER [facility] Jan 09, 2018 02:01 PM VA-TOBACCO FORMER USER [facility] Jan 09, 2018 02:01 PM VA-TOBACCO QUIT 5 TO < [address] [facility] Apr 16, 2017 10:17 AM FORMER TOBACCO USER 7Y OR GREATER [facility] Jun 09, 2016 10:03 AM FORMER TOBACCO USER 7Y OR GREATER [facility] May 06, 2015 08:19 AM FORMER TOBACCO USER 7Y OR GRE[address] [facility] Advance Directives: All historical and current Section Date Range: From patient's date of to the date document was created. This section includes ALL of a patient's completed or amended [place] Advance and Rescinded Directives. The entries below indicate that a directive exists for the patient, but an actual copy is not included with this document. The data comes from all [facility]. Date Advance Directives Provider Source July 24, [address] [facility] July 24, 2021 ADVANCE DIRECTIVE DISCUSSION PAPA LEWIS [facility] Radiology Reports: +/- 30 days [...] data comes from all [place] treatment facilities. Date/Time Radiology Report Provider Source Oct 27, 2021 08:[address] BODY WITH CONTRAST: ELENA MORRIS [facility] ANDER LOCKWOOD RED [id number] -[birth year], [birth year] 7 M Exm Date: OCT 27, 2021@08:53 Req Phys: DENG LOUISE Pat Loc: [facility] HEM ONC PHONE DANI (Req'g Img Loc: NUC MED Service: Unknown (Case [id number] COMPLETE) PET IMAGE W/CT SKULL-THIGH (NM Detailed) CPT:78866 Reason for Study: pt with non-small cell lung c ancer, also has follicular lymphom; (Case 1910 COMPLETE) F-18 FDG (NM Detailed) CPT: A9552 Clinical History: [place] IS NOT under investigation for COVID-19 or is COVID-19 negative pt with non-small cell lung cancer, also has fo llicular lymphom; now with brain met (resected at [facility] )- please eval disease status Responsible provider name a nd phone number to notify for critical findings if other than user placing the order and pager listed below: User placing orders pag er: [phone] LAST CREATININE 1.2 (09/15/21) Report Status: Verified Date Reported: OCT 27, 2021 Date Verified: OCT 27, 2021 Event Operations Manager E-Sig:/ES/ELENA MORRIS MD Report: PET/CT SCAN INDICATION: Patient with non-small cell lung ca ncer, also has follicular lymphoma. Now with brain metastases, resected at [facility] 10/07/2021. These evaluate for disease status. COMPARISON: [...] MORRIS MD, RADIOLOGY STAFF PHYSICIAN (V erifier) / Sep 15, 2021 10:[address] (CAP) CHEST/ABD/PELVIS (P): Dimitri DACOSTA [facility] ANDER LOCKWOOD [id number] [facility] 24 194 7 M Exm Date: SEP 15, 2021@10:12 Req Phys: PATRICIA,CHACHO Pat Loc: [facility] HEM ONC PHON E PATRICIA (Req'g Img Loc: CT IMAGING Service: Unknown (Case 1583 COMPLETE) CT (CAP) CHEST W CONTRAST ( CT Detailed) CPT:81663 Contrast Media : Non-ionic Iodinated Reason for Study: follicular lymphoma, NSCLC, R renal lesion (Case 1584 COMPLETE) CT (CAP) ABDOMEN/PELVIS W C ONTRAS(CT Detailed) CPT:15253 Contrast Media : Non-ionic Iodinated Clinical History: [place] IS NOT under investigation for COVID-19 or [...] pager listed below: User placing orders pager: [phone] LAST 3: Collection DT Specimen Test Name [...] 15, 2021 Date Verified: SEP 15, 2021 Event Operations Manager E-Sig:/ES/JASPREET DACOSTA MD Report: EXAM: CT chest, [...] Staff: JASPREET DACOSTA MD, STAFF NUCLEAR RADIOLOGIST (Event Operations Manager) /CPD Pathology Reports: +/- 30 days of [...] data comes from all [place] treatment facilities. Date/Time Pathology Report Provider Source Oct 21, 2021 02:36 LR SURGICAL PATHOLOGY REPORT: MIGUELITO HEWITT [facility] LOCAL TITLE: LR SURGICAL PATHOLOGY REPORT STANDARD TITLE: PATHOLOGY REPORT DATE OF NOTE: OCT 21, 2021@14:36:45 ENTRY DATE: OCT 21, 2021@14:36:45 AUTHOR: MIGUELITO HEWITT EXP COSIGNER: URGENCY: STATUS: COMPLETED $APHDR Reporting Lab: [facility] [CLIA# [id number]] [place] [address] - - - - - - - [...] 2021 13:21): REVIEW 4 OUTSIDE SLIDES LABELED: [id number] - - - - - - - [...] Submitted are 4 slides receiv ed from [facility]. After review the material is returned to: [facility] [address] [place] Division [place] [address] MICROSCOPIC DESCRIPTION: Microscopic examination performed. BB DIAGNOSIS [...] Surgical Pathology Report Performed By: [facility] [CLIA# [id number]] [place] [address] $FTR - - - - - - [...] - - ANDER LOCKWOOD STANDARD FORM 515 ID:[id number] SEX:M :1945 AGE: 76 LOC: [id number] PCP: Liam Mejia MD /shalonda/ MIGUELITO HEWITT MD STAFF PATHOLOGIST Signed: 10/21/2021 14:36 Encounter Notes: All associated encounter notes This section contains the clinical notes associated to the Encounter. Date/Time Encounter Note(s) Provider Source Oct 12, 2021 06:44 PM PRIMARY CARE SECURE MESSAGING: ZULEYMA MEJIA [facility] LOCAL TITLE: PRIMARY CARE SECURE MESSAGING STANDARD TITLE: PRIMARY CARE SECURE MESSAGING DATE OF NOTE: OCT 12, 2021@18:44 ENTRY DATE: OCT 12, 2021@18:44:06 AUTHOR: LIAM MEJIA EXP COSIGNER: URGENCY: STATUS: COMPLETED PRIMARY CARE SECURE MESSAGING Has ADDENDA * ------Original Message Sent: 10/10/2021 02:14 PM ET From: ANDER LOCKWOOD To: [facility] Primary CareJuan L.(Deborah) Subject: General:Need info on RHIANNA & follow up pr [facility] care appt This is Ander's , Silke Maria was seen in [facility] last Sunday & diagnosed with [facility] tumor. [facility] in [place] where he had tumor on left frontal lobe removed on Sunday . We came home yesterday (Sunday). We were told to schedule follow up vis it with primary care Dr. We [facility] nurse [facility] the [facility] who is sched uled to visit SundayOct 17. We would prefer a video or phone visit with ajith soriano due to Covid and major construction between home and [facility]. Home nurse could remove sta ples with order from you and report back. I also need information on RHIANNA (Secondary Author ization Request) currently have a scrip for speech therapy which we would l pauly to do at our local hospital. We are waiting for pathology b ut would like to do any treatment plan at local hospital thru [facility]. I am also wondering how to coordinate ca ncer care so tests aren't repeated. My cell is [phone] ------Original Message Sent: 10/12/2021 07:43 PM ET From: LIAM MEJIA To: ANDER LOCKWOOD Subject: General:Need info on RHIANNA & follow up pr imary care appt I tried to call you and reached Mr. Lockwood. H e said you were on a walk. He said you did not have your cell phone, but I tri ed that too and left you a message. I am so sorry to hear that all of this has happened. I will try to call you again in the morning. I am sorry that I missed you. Liam Mejia M.D. /shalonda/ LIAM MEJIA MD STAFF PHYSICIAN Signed: 10/12/2021 18:44 10/12/2021 ADDENDUM STATUS: COMPLETED This newswriter reviewed records in [facility] in response to above secure message and then tried to call . Reached her personal voice [place], left message that this newswriter would attempt to call her again in the mo rning. Reached pt at home, he said that was not at ho me and did not have her cell phone with her. He was alert, speaking in full sent ences and said he was doing fine but did not know any details regarding upcoming appointments. From review of [facility], pt was seen in local ED for altered mental status on 10/03/21, was found to have brain mass and was tr [facility] to [facility] because [facility] Pt unde rwent resection of brain mass; pathology appears to be consistent with metastati c lung cancer. Does not appear that [facility] been [facility] of this, will alert them on this n ote for indicated follow up. Immediate request from and separate note fr om home care agency is for speech therapy in the home. Pt already has activ e [facility] Sk[facility] Homecare consult #[id number] in place, which is valid throug h early January 2022. This newswriter supports in home spee ch therapy and will alert both PACT RN and [facility] RN that PCP is in support of this. Other issues are that pt suzy l need follow up Neurosurgery care - [facility] is unfortunately not w/in [facility]. Furthermore, pt does not meet drive time criteria for [facility] specialty care. Will plan to discuss this with in detail tomorrow morning and on ce discussed with , place indicated [facility] [place] [facility]. Alerting Heme/Onc team for their information reg arding the above. /shalonda/ LIAM MEJIA MD STAFF PHYSICIAN Signed: 10/12/2021 18:55 Receipt Acknowledged By: 10/13/2021 10:26 /shalonda/ MARIA LUZ MANCERA RN RN 10/13/2021 12:24 /shalonda/ DEBBIE APONTE, [employer] NURSE COORDINATOR * AWAITING SIGNATURE * DENG LOUISE 10/13/2021 06:58 /shalonda/ Chacho Sanford MD HEMATOLOGY/ONCOLOGY STAFF 10/13/2021 ADDENDUM STATUS: COMPLETED Zahraa this pt has a phone visi t with you. would you please review [facility] records. See what type of lung cancer was the met. Pt need a new PET scan. If the brain was only single met and it is the only site of disea se, the only therapy that is needed is adjuvant brain radiation to the bed of the resected tumor but no systemic therapy till a relapse happen. Pt will need after that MRI brain 2-3 months and PET scan q3 months for a relapse noe de jesusing. 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 /shalonda/ Chacho aSnford MD HEMATOLOGY/ONCOLOGY STAFF Signed: 10/13/2021 07:02 Receipt Acknowledged By: * AWAITING SIGNATURE * DENG LOUISE 10/13/2021 ADDENDUM STATUS: COMPLETED Spoke with [facility], faxed above note and made addendum to [facility] Skilled consult to approve in home Speech Therapy. /es/ DEBBIE APONTE RN COMMUNITY HEALTH NURSE COORDINATOR Signed: 10/13/2021 13:04
--- OUTSIDE RECORDS SUMMARY | 2021-11-18 09:29 | XMS_ITS | Encounter Summary ---
:1945 Author Organization [facility] Address [address] [place] [id number] Support Name Relationship Address Phone SILKE LOCKWOOD Unavailable [id number] [place] [address] SILKE LOCKWOOD Unavailable [id number] [address] Insurance Providers: All historical and current Section [...] Victor [place] Jun 10, [id number] [facility] (WNR) ADVANTAGE (WNR) 2020 8 [id number] [phone] ,ANDER Bennett [place] MED[place]ARE [place] Jun 10, [id number] [facility] (WNR) ADVANTAGE (WNR) 2018 3 [id number] [phone] ,ANDER Bennett Selected Encounter This section includes the information on record at [place] for the Encounter. Date/Time Encounter Type Encounter Reason Provider Source Description Oct 14, 2021 Outpatient TELEPHONE/MEDICIN ICD-10-CM DENG LOUISE 10:30 AM Encounter E C34.31 K Malignant neoplasm of lower lobe, right bronchus or lung with Provider Comments: Malignant neoplasm of lower lobe of right lung (SCT [id number]) IHE Encounter Template Text not used by [place] Assessments - Encounter Diagnoses This section includes the primary and secondary diagnoses documented for the Encounter. Date/Time Primary/Secondary Diagnosis Name Provider Source Diagnosis Oct 14, 2021 PRIMARY Malignant DENG LOUISE V A 10:30 AM neoplasm of lower K [facility] lobe, right bronchus or lung Oct 14, 2021 SECONDARY Allergy status to DENG LOUISE [place] 10:30 AM other 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 Plan of Treatment: Future Appointments (+ [...] Appointment Type Appointment Facili ty Name Oct 25, 2021 12:27 PM AMBULATORY - NONE [facility] Oct 27, 2021 08:30 AM AMBULATORY - MEDICINE [facility] Oct 27, 2021 09:00 AM AMBULATORY - NONE [facility] Nov 02, 2021 09:00 AM AMBULATORY - MEDICINE [facility] Nov 15, 2021 10:00 AM AMBULATORY - NONE [facility] Nov 17, 2021 10:00 AM AMBULATORY - SURGERY [facility] Dec 15, 2021 04:00 PM AMBULATORY - MEDICINE [facility] Active, Pending, and Scheduled Orders This [...] 14, 2021 10:49 AM Consult Order [facility] CARE-RADIATION THERAPY Cons Machinist Mate's Choice Nov 17, 2021 10:20 AM Imaging - Magnetic MRI-BRAIN (P) [facility] Resonance Imaging (MRI) Order Lab Results: [...] Reference Range Comment Oct 27, 2021 09:00 [facility] FINGERSTICK GLUCOSE Speci men Type: BLOOD AM Comment: Save R esult Ordering Provid er: LIAM MEJIA Report Released Date/Time: Oct 27, 2021 01:25 PM Reporting Lab: [facility] [address] Performing Lab: [facility] [address] FINGERSTICK GLUCOSE 109 H 70-100 Oct 27, 2021 [facility] COMPREHENSIVE METABOLIC Spec imen Type: PLASMA 08:53 AM PANEL+MG No comment enter ed. Ordering Provid er: DENG LOUISE Report Released Date/Time: Oct 14, 2021 10:46 AM Reporting Lab: [facility] [address] [facility] [address] Performing Lab: [facility] [address] CREATININE 1.0 0.7-1.2 UREA NITROGEN 23 8-26 [...] 78 >60 Oct 27, 2021 08:53 AM [facility] CBC & DIFF Specim en Type: BLOOD Comment: Automa kerrie Differential Performed Ordering Provid er: DENG LOUISE Report Released Date/Time: Oct 14, 2021 10:46 AM Reporting Lab: [facility] [address] [facility] [address] Performing Lab: [facility] [address] [facility] [address] WBC 10.67 4.0-11.0 RBC 3.73 L 4.6-6.2 [...] 0.06 0-0.1 Sep 15, 2021 10:02 AM [facility] POC CREATININE Specim en Type: BLOOD No comment enter ed. Ordering Provid er: LIAM MEJIA Report Released Date/Time: Sep 15, 2021 10:02 AM Reporting Lab: [facility] [address] Performing Lab: [facility] [address] POC CREATININE 1.2 0.6-1.3 Sep 15, 2021 09:35 AM [facility] EXTRA MINT TUBE Specim en Type: PLASMA No comment enter ed. Ordering Provid er: LIAM MEJIA Report Released Date/Time: Sep 15, 2021 09:39 AM Reporting Lab: [facility] [address] Performing Lab: [facility] [address] EXTRA MINT TUBE RECEIVED Sep 15, 2021 09:35 AM [facility] RETICS Specim en Type: BLOOD Comment: Automa kerrie Differential Performed Ordering Provid er: CHACHO SANFORD Report Released Date/Time: May 21, 2021 03:59 PM Reporting Lab: [facility] [address] Performing Lab: [facility] [address] ABS RETIC 0.0751 0.0300-0.1000 .RETICULOCYTE 1.78 0.6-2.0 IMMATURE RETIC 12.5 1.0-14.0 .RETICULOCYTE HE 34.2 28.2-36.6 Sep 15, 2021 [facility] COMPREHENSIVE METABOLIC Spec imen Type: PLASMA 09:35 AM PANEL+MG Comment: Automa kerrie Differential Performed Ordering Provid er: CHACHO SANFORD Report Released Date/Time: May 21, 2021 03:59 PM Reporting Lab: [facility] [address] Performing Lab: [facility] Sep 15, 2021 [facility] LD,TOTAL Specimen Typ e: PLASMA 09:35 AM No comment enter ed. Ordering Provid er: CHCAHO SANFORD Report Released Date/Time: May 21, 2021 03:59 PM Reporting Lab: [facility] [address] [facility] [address] Performing Lab: [facility] [address] LD,TOTAL 148 125-220 Sep 15, 2021 09:35 AM [facility] FOLATE Specim en Type: SERUM No comment enter ed. Ordering Provid er: CHACHO SANFORD Report Released Date/Time: May 21, 2021 03:59 PM Reporting Lab: [facility] [address] [facility] [address] Performing Lab: [facility] [address] FOLATE >20.0 >7.0 Sep 15, 2021 09:35 AM [facility] IRON GROUP Specim en Type: SERUM No comment enter ed. Ordering Provid er: CHACHO SANFORD Report Released Date/Time: May 21, 2021 03:59 PM Reporting Lab: [facility] [address] [facility] [address] Performing Lab: [facility] [address] [facility] [address] IRON 71 65-175 TIBC,CALCULATED 258 250-425 FERRITIN 195.5 21.8-274.7 IRON SATURATION 28 20-50 TRANSFERRIN 206 163-382 Sep 15, 2021 09:35 AM [facility] B 12 Specim en Type: SERUM No comment enter ed. Ordering Provid er: CHACHO SANFORD Report Released Date/Time: May 21, 2021 03:59 PM Reporting Lab: [facility] [address] [facility] [address] Performing Lab: [facility] [address] [facility] [address] B 12 [phone] Sep 15, 2021 09:35 [facility] TSH W/REFLEX TO FREE Spec imen Type: PLASMA AM T4 No comment enter ed. Ordering Provid er: LIAM MEJIA Report Released Date/Time: May 29, 2021 05:51 PM Reporting Lab: [facility] [address] Performing Lab: [facility] [address] TSH 1.72 0.35-4.94 Sep 15, 2021 09:35 [facility] EXTRA PURPLE TUBE Specime n Type: BLOOD AM No comment enter ed. Ordering Provid er: LIAM MEJIA Report Released Date/Time: Sep 15, 2021 09:39 AM Reporting Lab: [facility] [address] Performing Lab: [facility] [address] EXTRA PURPLE TUBE RECEIVED Sep 15, 2021 [facility] LIPID PANEL,NON-FASTING Spec imen Type: PLASMA 09:35 AM Comment: Automsegun sy Differential Performed Ordering Provid er: LIAM MEJIA Report Released Date/Time: May 29, 2021 05:51 PM Reporting Lab: [facility] [address] [facility] [address] Performing Lab: [facility] Sep 15, 2021 [facility] CBC & DIFF Specimen Typ e: BLOOD 09:35 AM Comment: Automa kerrie Differential Performed Ordering Provid er: CHACHO SANFORD Report Released Date/Time: May 21, 2021 03:59 PM Reporting Lab: [facility] [address] [facility] [address] Performing Lab: [facility] [address] [facility] [address] WBC 7.54 4.0-11.0 RBC 4.22 L 4.6-6.2 [...] 2021 03:30 PM VA-TOBACCO FORMER USER [facility] Tobacco Use History This section includes a history of the smoking, or tobacco- related health factors, that were collected on or before the date of the Encounter. The data comes from the [place] facility where the Encounter took place. Date/Time Smoking Status/Tobacco Use Comment [facility] May 26, 2021 03:30 PM VA-TOBACCO QUIT 15 YRS OR MORE [facility] Jul 05, 2020 06:42 PM VA-TOBACCO FORMER USER [facility] Jan 09, 2018 02:01 PM VA-TOBACCO FORMER USER [facility] Jan 09, 2018 02:01 PM VA-TOBACCO [...] this document. The data comes from all [facility]. Date Advance Directives Provider Source July 24, 2021 ADVANCE DIRECTIVE PAPA LEWIS [facility] July 24, 2021 ADVANCE DIRECTIVE DISCUSSION PAPA LEWIS [facility] Radiology Reports: +/- 30 days [...] PET CT BODY WITH CONTRAST: ELENA MORRIS [facility] ANDER LOCKWOOD [id number] -[birth year] 24 [birth year] 7 M Exm Date: OCT 27, 2021@08:53 Req Phys: DENG LOUISE Loc: MSP HEM ONC PHONE DANI (Req'g Img Loc: NUC MED Service: Unknown (Case [id number] COMPLETE) PET IMAGE W/CT SKULL-THIGH (NM Detailed) CPT:02850 Reason for Study: pt with non-small cell lung c ancer, also has follicular lymphom; (Case 1910 COMPLETE) F-18 FDG (NM Detailed) CPT: A9552 Clinical History: [place] IS NOT under investigation for COVID-19 or is COVID-19 negative pt with non-small cell lung cancer, also has fo llicular lymphom; now with brain met (resected at [facility] )- please eval disease status Responsible provider name a nd phone number to notify for critical findings if other than user placing the order and pager listed below: User placing orders pag er: [phone] LAST CREATININE 1.2 (09/15/21) Report Status: Verified Date Reported: OCT 27, 2021 Date Verified: OCT 27, 2021 Bench Shear Operator E-Sig:/ES/ELENA MORRIS MD Report: PET/CT SCAN INDICATION: Patient with non-small cell lung ca ncer, also has follicular lymphoma. Now with brain metastases, resected at [facility] 10/07/2021. These evaluate for disease status. COMPARISON: [...] note that patient had a dedicated CT [facility] on 09/15/2021 for detailed description of radiographic [...] MORRIS MD, RADIOLOGY STAFF PHYSICIAN (V erifier) /SG Sep 15, 2021 10:[address] (CAP) CHEST/ABD/PELVIS (P): Dimitri DACOSTA [facility] ANDER LOCKWOOD [id number] -[birth year], [birth year] 7 M Exm Date: SEP 15, 2021@10:12 Req Phys: PATRICIA,CHACHO Pat Loc: [facility] HEM ONC PHON E PATRICIA (Req'g Img Loc: CT IMAGING Service: Unknown (Case 1583 COMPLETE) CT (CAP) CHEST W CONTRAST ( CT Detailed) CPT:72129 Contrast Media : Non-ionic Iodinated Reason for Study: follicular lymphoma, NSCLC, R renal lesion (Case 1584 COMPLETE) CT (CAP) ABDOMEN/PELVIS W C ONTRAS(CT Detailed) CPT:36405 Contrast Media : Non-ionic Iodinated Clinical History: [...] pager listed below: User placing orders pager: [phone] LAST 3: Collection DT Specimen Test Name [...] 15, 2021 Date Verified: SEP 15, 2021 Bench Shear Operator E-Sig:/ES/JASPREET DACOSTA MD Report: EXAM: CT [...] not sufficiently defined to measure precisely, cha veroniak the area of abnormal enhancement measures approximately [...] Staff: JASPREET DACOSTA MD, STAFF NUCLEAR RADIOLOGIST (Bench Shear Operator) /CPD Pathology Reports: +/- 30 days [...] comes from all [place] treatment facilities. Date/Time Pathology Report Provider Source Oct 21, 2021 02:36 LR SURGICAL PATHOLOGY REPORT: MIGUELITO HEWITT [facility] PM LOCAL TITLE: LR SURGICAL PATHOLOGY REPORT STANDARD TITLE: PATHOLOGY REPORT DATE OF NOTE: OCT 21, 2021@14:36:45 ENTRY DATE: OCT 21, 2021@14:36:45 AUTHOR: MIGUELITO HEWITT EXP COSIGNER: URGENCY: STATUS: COMPLETED $APHDR Reporting Lab: [facility] [CLIA# [id number]] [place] [address] - - - - - - - [...] - - - - $TEXT Submitted by: SCOTTY/ONC Date obtained: Oct 21 2 - - [...] Submitted are 4 slides receiv ed from [facility]. After review the material is returned to: [facility] [address] [place] Division [place] [address] MICROSCOPIC DESCRIPTION: Microscopic examination performed. BB DIAGNOSIS [...] Performing Laboratory: Surgical Pathology Report Performed By: [facility] [CLIA# [id number]] [place] [address] $FTR - - - - - - [...] - - ANDER LOCKWOOD STANDARD FORM 515 ID:[id number] SEX:M :1945 AGE: 76 LOC: [id number] PCP: Liam Mejia MD /shalonda/ MIGUELITO HEWITT MD STAFF PATHOLOGIST Signed: 10/21/2021 14:36 Encounter Notes: All associated encounter notes This section contains the clinical notes associated to the Encounter. Date/Time Encounter Note(s) Provider Source Oct 14, 2021 10:26 AM HEMATOLOGY AND ONCOLOGY ATTENDING NOTE: DENG SEVILLA [facility] LOCAL TITLE: HEME/ONC CLINIC NOTE STANDARD TITLE: HEMATOLOGY AND ONCOLOGY ATTENDIN G NOTE DATE OF NOTE: OCT 14, 2021@10:26 ENTRY DATE: OCT 14, 2021@10:26:58 AUTHOR: DENG LOUISE EXP COSIGNER: URGENCY: STATUS: COMPLETED Date of appt: 10/14/2021 Last appt: 01/24/2021 Diagnoses/Treatment: (1) NSCLC adenocarcinoma, stage IIb -S/p resection + adjuvant cis/pemetrexed -Now on surveilance (2) Follicular lymphoma, Stage IV -S/p R-CVP & maintenance rituximab (3) Suspected RCC Followup today via phone clinic. Interval history: Unfortunately, was notified yesterday that pt payal cameron developed confusion, difficulty speaking and more fatigue- went to ER in [place] on 10/03/[address] head showed a mass in left frontal lobe with assoc vasogenic edema. He was transferred to [place] in [facility]. CT CAP 10/04/2021 showed ill-defined hazy mesente ry in the central abdomen with few mildly enlarged lymph nodes or soft tis brian nodules. Indeterminate mildy enlarged left iliac lymph node. Indetermin ate 7 mm sclerotic lesion in the right iliac bone. No findings of malignancy in the chest. Brain MRI 10/04/2021 showed 4.2 x 2.9 x 3.6 cm (A P x TV x CC) peripherally enhancing, centrally necrotic and diffusion rest ricting left frontal lobe mass with increased intralesional rCBV and surro unding vasogenic edema with 8 mm of rightward midline shift, subfalcine hernia tion, and generalized left frontal lobe sulcal effacement. Pt underwent surgical resection 10/07/[address]-op MRI showed gross total resection. 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 >Immunostains were performed on the block: -Keratin AE1/AE3: positive -Keratin 7: positive -TTF 1: negative -P 40: negative -S100 protein and SOX10: both negative -CDX2: negative On the phone this morning wi th patient, and pt's sister who is a former RN. Pt reports doing well, is recovering nicely from brain mass resection. Speech is improving. They all feel that physica lly, he is doing very well. Energy and appetite okay, improving. No fevers or infectious sxs. No neuro changes. P CP has placed consult for pt to have neurosurg follow[facility]wd . Denies any other concerns/changes at this time. HEM/ONC HISTORY (copied/updated) - Stage 4 follicular lymphoma, on observation. [age] yr./M with history stage IV follicular lymphoma, s/p 6 cycles R-CVP complete d 07/2016. He then completed 2 yrs of maintenance Rituximab (q 2 months x 2 y rs) in 05/2018 with post treatment PET-CT showing no evidence of lymphoma . He has been on surveillance since. See below for further updates. - 01/2020 PET showed hyprmetabolic left pelvic l ymph nodes. These were also seen on the [...] 01/19/2021 CT CAP shows mixed areas of progres dell and spontaneous decreases in other areas. RUL spiculated mass th at is suspicious but has not significantly progressed. 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 On 01/24 appt, he remains completely asymptomati c. - 10/04/2021 brain MRI ([facility]): 4.2 x 2.9 x 3.6 cm (AP x TV x CC) peripherally enhancing, centrally necrotic and diffusion rest ricting left frontal lobe mass with increased intralesional rCBV and surro unding vasogenic edema with 8 mm of rightward midline shift, subfalcine hernia tion, and generalized left frontal lobe sulcal effacement. - 10/04/21 CT CAP ([facility]): ill -defined hazy mesentery in the central abdomen with few mildly enlarged lymph nodes or soft tissue n odules. Indeterminate mildy enlarged left iliac lymph node. Indetermin ate 7 mm sclerotic lesion in the right iliac bone. No findings of malignancy in the chest. - 10/07/2021 Pt underwent tye gical resection of brain mass and post-op MRI showed gross total resection. 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 >Immunostains were performed on the block: -Keratin AE1/AE3: positive -Keratin 7: positive -TTF 1: negative -P 40: negative -S100 protein and SOX10: both negative -CDX2: negative Meds reviewed Allergies reviewed: Patient has answered NKA LAB/IMAGING DATA: reviewed Specimen Collection Date: Sep 15, 2021@09:35 B 12 559 pg/mL 213 - 816 [618] FOLATE >20.0 ng/mL Ref: >=7.0 [618] IRON 71 ug/dL 65 - 175 [618] TRANSFERRIN 206 mg/dL 163 - 382 [618] TIBC,CALCULATED 258 ug/dL 250 - 425 [618] IRON SATURATION 28 % 20 - 50 [618] FERRITIN 195.5 ng/mL 21.8 - 274.7 [618] CREAT EGFR(CKD-EPI) 63 Ref: >=60 [618] TSH 1.72 uIU/mL 0.35 - 4.94 [618] SODIUM 140 mmol/L 136 - 145 [618] POTASSIUM 4.3 mmol/L 3.5 - 5.1 [618] CHLORIDE 107 mmol/L 98 - 107 [618] CO2 28 mmol/L 22 - 29 [618] ANION GAP 5 mmol/L 5 - 15 [618] GLUCOSE 94 mg/dL 74 - 100 [618] UREA NITROGEN 17 mg/dL 8 - 26 [618] CREATININE 1.2 mg/dL 0.7 - 1.2 [618] PROTEIN,TOTAL 6.5 g/dL 6.0 - 8.3 [618] ALBUMIN 3.9 g/dL 3.5 - 5.2 [618] CALCIUM 9.5 mg/dL 8.4 - 10.2 [618] MAGNESIUM 1.8 mg/dL 1.6 - 2.6 [618] BILIRUBIN, TOTAL 0.5 mg/dL 0.2 - 1.2 [618] ALKALINE PHOSPHATASE 86 U/L 40 - 150 [618] AST/SGOT 14 U/L Ref: <=34 [618] ALT/SGPT 14 U/L Ref: <=55 [618] LD,TOTAL 148 U/L 125 - 220 [618] WBC 7.54 K/cmm 4.0 - 11.0 [618] RBC 4.22 L M/cmm 4.6 - 6.2 [618] HGB 12.8 L g/dL 13.5 - 17.9 [618] HCT 39.1 L % 41 - 54 [618] MCV 92.7 fL 80 - 100 [618] MCH 30.3 pg 27 - 33 [618] MCHC 32.7 g/dL 32.0 - 37.5 [618] RDW 14.5 % 11.5 - 14.5 [618] PLT 237 K/cmm 150 - 400 [618] MPV 9.0 fL 7.4 - 10.4 [618] NEUT 61.0 % [618] LYMPHS 24.3 % [618] MONO 10.5 % [618] EOSINO 3.4 % [618] BASO 0.5 % [618] IG(META,MYELO,PRO) 0.3 % [618] ABS NEUT 4.60 K/cmm 2.0 - 7.7 [618] ABS LYMPH 1.83 K/cmm 1.0 - 4.0 [618] ABS MONO 0.79 K/cmm 0.1 - 1.0 [618] ABS EOS 0.26 K/cmm 0 - 0.5 [618] ABS BASO 0.04 K/cmm 0 - 0.2 [618] ABS IMMATURE GRAN 0.02 K/UL 0 - 0.1 [618] .RETICULOCYTE 1.78 % 0.6 - 2.0 [618] ABS RETIC 0.0751 M/cmm 0.0300 - 0.1000 [618] IMMATURE RETIC 12.5 % 1.0 - 14.0 [618] .RETICULOCYTE HE 34.2 PG 28.2 - 36.6 [618] CT CAP 09/15/2021: Impression: 1. Interval enlargement of a left [...] without CT evidence f or acute diverticulitis. ASSESSMENT/PLAN: Mr. Lockwood is a pleasant 76 yr old male with lung adenocarcinoma IIb s/p resection and adjuvant chemotherapy on o bservation; follicular lymphoma s/p prior treatment on observation; and suspected RCC on observation. # Stage 2B lung adenocarcinoma: s/p RLL wedge re section 01/2020 followed by adjuvant chemotherapy with Cisplatin/Pemetrexed, s/p 3 cycles, then developed pneumonitis, possibly related to Pemetrexed. He mostly recovered from pneumonitis, then on surveillance. Has RUL spiculated lesion that has been monitore d, has not been amenable for biopsy; had increased by ~2 mm on scans from 05/[address] 09/2021. Two small 3 mm R lung base on 09/2021 scans as we ll. Now, pt unfortunately found to have brain mass (was having confusion, difficulty speaking), s/p resection at [facility] 10/07/21, path c /w metastatic adenocarcinoma with mucinous features, c/w known lung primary. He did had CT CAP 10/04/21, report stated no e/o malignancy in chest; interdeterminate 7 mm sclero tic lesion R iliac bone and few mildly enlarged LNs or soft tissue nodules in abd. -Have requested path slides/block from [facility] for review and testing for molecular mutation (in house lung panel). -Will get PET scan in the next few weeks. -Consult placed to Rad/Onc for consideration of XRT to site of brain tumor resection. # Stage IV follicular lymphoma s/p 6 cycles R-CVP completed 07/2016. Then comple kerrie 12 cycles of maintenance Rituximab (q 2 months x 2 yrs) in 05/2018, tolera kerrie very well. Overall his follicular lymphoma has since remained stable th ough he has had areas of progression and areas of spontaneous decrease. H owever, he remains asymptomatic and we would hold off on treatment without any symptoms. # Suspected pemetrexed pneumonitis Admitted 07/05-07/15/20 with [facility]. Has slowly recov ered since. Followed with pulmonology and weaned from steroids. He has ess entially completely recovered. - Cont to follow with pulmonology PRN # Right kidney mass Initially incidentally identified on CT 02/17/20 with f/u US and MRI suspicious for RCC. Following with urology and d iscussed at urology tumor board (04/29/20). Now slowly progressing on CT (1 2mm vs 10mm on 05/26/20). Have continued to monitor, is stable on current CT scan. # Chronic R common iliac artery thrombus [...] surgery should his possible claudication sxs worsen 60 min spent on appt, reviewing records in [facility], discussing with primary care, making plan, discussion with patient and family today and EHR documentation. Former pt of Dr. Hare, now with Dr. Sanford. /shalonda/ DENG LOUISE, PAC PHYSICIAN DIRECTOR MACHINE Signed: 10/14/2021 13:46 Receipt Acknowledged By: * AWAITING SIGNATURE * CHACHO SANFORD
--- OUTSIDE RECORDS SUMMARY | 2021-11-18 09:29 | XMS_ITS | Encounter Summary ---
:1945 Author Organization [facility] Address [address] [place] [id number] Support Name Relationship Address Phone SILKE LOCKWOOD Unavailable [id number] [place] [address] SILKE LOCKWOOD Unavailable [phone] [place] [address] Insurance Providers: All historical and current Section [...] Victor [place] MCR Jun 10, [id number] [facility] ([facility] (WNR) 2020 8 [id number] [phone] ,ANDER Bennett [place] Jun 10, [id number] [facility] (WNR) [facility]ANT[facility] (WNR) 2018 3 [id number] [phone] ,ANDER Bennett Selected Encounter This section includes the information on record at [place] for the Encounter. Date/Time Encounter Type Encounter Reason Provider Source Description Oct 14, 2021 Outpatient TELEPHONE PRIMARY ICD-10-CM C71.9 ZULEYMA MEJIA 09:45 AM Encounter CARE Malignant E neoplasm of brain, unspecified with Provider Comments: Secondary malignant neoplasm of brain (SCT [id number]) E Encounter Template Text not used by [place] Assessments - Encounter Diagnoses This section includes the primary and secondary diagnoses documented for the Encounter. Date/Time Primary/Secondary Diagnosis Name Provider Source Diagnosis Oct 14, 2021 PRIMARY Malignant LIAM MEJIA [facility] 09:45 AM neoplasm of E [facility] brain, unspecified Plan of Treatment: Future Appointments (+ [...] 27, 2021 08:30 AM AMBULATORY - MEDICINE [facility] Oct 27, 2021 09:00 AM AMBULATORY - NONE [facility] Nov 02, 2021 09:00 AM AMBULATORY - MEDICINE [facility] Nov 15, 2021 10:00 AM AMBULATORY - NONE [facility] Nov 17, 2021 10:00 AM AMBULATORY - SURGERY [facility] Dec 15, 2021 04:00 PM AMBULATORY - MEDICINE [facility] Active, Pending, and Scheduled Orders This [...] The data comes from all [place] treatment [facility]. Test Date/Time Test Type Test Details Facility Name Oct 14, 2021 10:49 AM Consult Order [facility] CARE-RADIATION THERAPY Cons Novelty Twister Operator's Choice Nov 17, 2021 10:20 AM Imaging [...] Reference Range Comment Oct 27, 2021 09:00 [facility] FINGERSTICK GLUCOSE Speci men Type: BLOOD AM Comment: Save R esult Ordering Provid er: LIAM MEJIA Report Released Date/Time: Oct 27, 2021 01:25 PM Reporting Lab: [facility] [phone] Performing Lab: [facility] [address] FINGERSTICK GLUCOSE 109 H 70-100 Oct 27, 2021 [facility] COMPREHENSIVE METABOLIC Spec imen Type: PLASMA 08:53 AM PANEL+MG No comment enter ed. Ordering Provid er: DENG LOUISE Report Released Date/Time: Oct 14, 2021 10:46 AM Reporting Lab: [facility] [address] Performing Lab: [facility] [address] CREATININE 1.0 0.7-1.2 UREA NITROGEN 23 8-26 [...] 78 >60 Oct 27, 2021 08:53 AM [facility] CBC & DIFF Specim en Type: BLOOD Comment: Automa kerrie Differential Performed Ordering Provid er: DENG LOUISE Report Released Date/Time: Oct 14, 2021 10:46 AM Reporting Lab: [facility] [address] Performing Lab: [facility] [address] WBC 10.67 4.0-11.0 RBC 3.73 L 4.6-6.2 [...] 0.06 0-0.1 Sep 15, 2021 10:02 AM [facility] POC CREATININE Specim en Type: BLOOD No comment enter ed. Ordering Provid er: LIAM MEJIA Report Released Date/Time: Sep 15, 2021 10:02 AM Reporting [facility] [address] Performing Lab: [facility] [address] POC CREATININE 1.2 0.6-1.3 Sep 15, 2021 09:35 AM [facility] EXTRA MINT TUBE Specim en Type: PLASMA No comment enter ed. Ordering Provid er: LIAM MEJIA Report Released Date/Time: Sep 15, 2021 09:39 AM Reporting Lab: [facility] [address] Performing Lab: [facility] [address] EXTRA MINT TUBE RECEIVED Sep 15, 2021 [facility] COMPREHENSIVE METABOLIC Spec imen Type: PLASMA 09:35 AM PANEL+MG Comment: Automsegun sy Differential Performed Ordering Provid er: CHACHO GOMEZ Report Released Date/Time: May 21, 2021 03:59 PM Reporting Lab: [facility] [address] Performing Lab: [facility] Sep 15, 2021 [facility] RETICS Specimen Typ e: BLOOD 09:35 AM Comment: Automsegun kerrie Differential Performed Ordering Provid er: CHACHO GOMEZ Report Released Date/Time: May 21, 2021 03:59 PM Reporting Lab: [facility] [address] [facility] [address] Performing Lab: [facility] [address] ABS RETIC 0.0751 0.0300-0.1000 .RETICULOCYTE 1.78 0.6-2.0 IMMATURE RETIC 12.5 1.0-14.0 .RETICULOCYTE HE 34.2 28.2-36.6 Sep 15, 2021 09:35 AM [facility] LD,TOTAL Specim en Type: PLASMA No comment enter ed. Ordering Provid er: CHACHO GOMEZ Report Released Date/Time: May 21, 2021 03:59 PM Reporting Lab: [facility] [address] [facility] [address] Performing Lab: [facility] [address] [facility] [address] LD,TOTAL 148 125-220 Sep 15, 2021 09:35 AM [facility] FOLATE Specim en Type: SERUM No comment enter ed. Ordering Provid er: CHACHO GOMEZ Report Released Date/Time: May 21, 2021 03:59 PM Reporting Lab: [facility] [address] [facility] [address] Performing Lab: [facility] [address] [facility] [address] FOLATE >20.0 >7.0 Sep 15, 2021 09:35 AM [facility] B 12 Specim en Type: SERUM No comment enter ed. Ordering Provid er: CHACHO GOMEZ Report Released Date/Time: May 21, 2021 03:59 PM Reporting Lab: [facility] [address] [facility] [address] Performing Lab: [facility] [address] [facility] [address] B 12 [phone] Sep 15, 2021 09:35 AM [facility] IRON GROUP Specim en Type: SERUM No comment enter ed. Ordering Provid er: CHACHO GOMEZ Report Released Date/Time: May 21, 2021 03:59 PM Reporting Lab: [facility] [address] [facility] [address] Performing Lab: [facility] [facility] [address] IRON 71 65-175 TIBC,CALCULATED 258 250-425 FERRITIN 195.5 21.8-274.7 IRON SATURATION 28 20-50 TRANSFERRIN 206 163-382 Sep 15, 2021 [facility] LIPID PANEL,NON-FASTING Spec imen Type: PLASMA 09:35 AM Comment: Dee Pierre Performed Ordering Provid er: LIAM MEJIA Report Released Date/Time: May 29, 2021 05:51 PM Reporting Lab: [facility] [address] [facility] [address] Performing Lab: [facility] Sep 15, 2021 [facility] TSH W/REFLEX TO FREE T4 Spec imen Type: PLASMA 09:35 AM No comment enter ed. Ordering Provid er: LIAM MEJIA Report Released Date/Time: May 29, 2021 05:51 PM Reporting Lab: [facility] [address] Performing Lab: [facility] [address] TSH 1.72 0.35-4.94 Sep 15, 2021 09:35 [facility] EXTRA PURPLE TUBE Specime n Type: BLOOD AM No comment enter ed. Ordering Provid er: LIAM MEJIA Report Released Date/Time: Sep 15, 2021 09:39 AM Reporting Lab: [facility] [address] Performing Lab: [facility] [address] EXTRA PURPLE TUBE RECEIVED Sep 15, 2021 09:35 AM [facility] CBC & DIFF Specim en Type: BLOOD Comment: Automa kerrie Differential Performed Ordering Provid er: CHACHO GOMEZ Report Released Date/Time: May 21, 2021 03:59 PM Reporting Lab: [facility] [address] Performing Lab: [facility] [address] WBC 7.54 4.0-11.0 RBC 4.22 L 4.6-6.2 [...] 2021 03:30 PM VA-TOBACCO FORMER USER [facility] Tobacco Use History This section includes [...] 2020 06:42 PM VA-TOBACCO FORMER USER [facility] Jan 09, 2018 02:01 PM VA-TOBACCO FORMER USER [facility] Jan 09, 2018 02:01 PM VA-TOBACCO [...] 24, 2021 ADVANCE DIRECTIVE DISCUSSION [facility] Radiology [...] PET CT BODY WITH CONTRAST: ELENA MORRIS [facility] ANDER LOCKWOOD [id number] -[birth year], [birth year] 8 M Exm Date: OCT 27, 2021@08:53 Req Phys: DENG LOUISE Loc: [facility] HEM ONC PHONE DANI (Req'g Img Loc: NUC MED Service: Unknown (Case [id number] COMPLETE) PET IMAGE W/CT SKULL-THIGH (NM Detailed) CPT:73581 Reason for Study: pt with non-small cell lung c ancer, also has follicular lymphom; (Case 1910 COMPLETE) F-18 FDG (NM Detailed) CPT: A9552 Clinical History: IS NOT under investigation for COVID-19 or is COVID-19 negative pt with non-small cell lung cancer, also has fo llicular lymphom; now with brain met (resected at [place] )- please eval disease status Responsible provider name a nd phone number to notify for critical findings if other than user placing the order and pager listed below: User placing orders pag er: [phone] LAST CREATININE 1.2 (09/15/21) Report Status: Verified Date Reported: OCT 27, 2021 Date Verified: OCT 27, 2021 Communication And Outreach Manager E-Sig:/ES/ELENA MORRIS MD Report: PET/CT SCAN INDICATION: Patient with non-small cell lung ca ncer, also has follicular lymphoma. Now with brain metastases, resected at [place] 10/07/2021. These evaluate for disease status. COMPARISON: [...] AM CT (CAP) CHEST/ABD/PELVIS (P): Dimitri DACOSTA [facility] ANDER LOCKWOOD [id number] -[birth year], [birth year] 8 M Exm Date: SEP 15, 2021@10:12 Req Phys: PATRICIA,CHACHO Pat Loc: [facility] HEM ONC PHON E PATRICIA (Req'g Img Loc: CT IMAGING Service: Unknown (Case 1583 COMPLETE) CT (CAP) CHEST W CONTRAST ( CT Detailed) CPT:50062 Contrast Media : Non-ionic Iodinated Reason for Study: follicular lymphoma, NSCLC, R renal lesion (Case 1584 COMPLETE) CT (CAP) ABDOMEN/PELVIS W C ONTRAS(CT Detailed) CPT:35592 Contrast Media : Non-ionic Iodinated Clinical History: [place] IS NOT under investigation for COVID-19 or [...] pager listed below: User placing orders pager: [phone] LAST 3: Collection DT Specimen Test Name [...] 15, 2021 Date Verified: SEP 15, 2021 Communication And Outreach Manager E-Sig:/ES/JASPREET DACOSTA MD Report: EXAM: CT [...] Staff: JASPREET DACOSTA MD, STAFF NUCLEAR RADIOLOGIST (Communication And Outreach Manager) /CPD Pathology Reports: +/- 30 days [...] comes from all [place] treatment facilities. Date/Time Pathology Report Provider Source Oct 21, 2021 02:36 LR SURGICAL PATHOLOGY REPORT: MIGUELITO HEWITT [facility] LOCAL TITLE: LR SURGICAL PATHOLOGY REPORT STANDARD TITLE: PATHOLOGY REPORT DATE OF NOTE: OCT 21, 2021@14:36:45 ENTRY DATE: OCT 21, 2021@14:36:45 AUTHOR: MIGUELITO HEWITT EXP COSIGNER: URGENCY: STATUS: COMPLETED $APHDR Reporting Lab: [facility] [CLIA# [id number]] [place] [address] - - - - - - - [...] Submitted are 4 slides receiv ed from [facility]. After review the material is returned to: [facility] [address] [place] Division [place] [address] MICROSCOPIC DESCRIPTION: Microscopic examination performed. BB DIAGNOSIS [...] Performing Laboratory: Surgical Pathology Report Performed By: [facility] [CLIA# [id number]] [place] [address] $FTR - - - - - - [...] - - ANDER LOCKWOOD STANDARD FORM 515 ID:[id number] SEX:M :1945 AGE: 76 LOC: [id number] PCP: Liam Mejia MD /shalonda/ MIGUELITO HEWITT MD STAFF PATHOLOGIST Signed: 10/21/2021 14:36 Encounter Notes: All associated encounter notes This section contains the clinical notes associated to the Encounter. Date/Time Encounter Note(s) Provider Source Oct 14, 2021 09:45 AM PACT NOTE: LIAM MEJIA [facility] LOCAL TITLE: MEDICINE CLINIC PROVIDER TELEPHONE NOTE STANDARD TITLE: PACT NOTE DATE OF NOTE: OCT 14, 2021@09:45 ENTRY DATE: OCT 14, 2021@09:45:25 AUTHOR: LIAM MEJIA EXP COSIGNER: URGENCY: STATUS: COMPLETED MEDICINE CLINIC PROVIDER TELEPHONE NOTE Has ADDENDA History: This ghost writer called and spoke to pt//sister i n law by phone. Patient and family have decided to pursue all cares through [facility]. reports that she has not been advised by [facility] nancy that pt has been scheduled for the following upcoming appts: Oncology on Tuesday 10/17, Neurosurgery (video follow up appt) 11/03/21 and Radiation Oncology ( she can't recall the date). Understands that [facility] canno t cover any of these visits. Pt/family wish to pursue all cares through [facility]. This ghost writer will place Neurosurg consult for follow up post op visit. Pt has olga in his head which are to come out at 2 weeks. reports that pt was sent home with staple remover, that they have homeowner association manager who is will ing to remove them as well as two RNs in the family who ar e also willing. feels comfortable that between homeowner association manager and family RNs, they are appropriat armond monitoring incision. They understand that if Rad Onc c onsultation is needed, [facility]. Objective: Assessment/Plan: as above. Diagnosis: malignant neoplasm of brain. Will alert Heme/Onc providers for their information . Pt/family do not plan to keep any of the upcoming appts at [facility]. Education/Counseling: Time spent mortgage protection sales: 5-10 minutes /rubén MEJIA MD STAFF PHYSICIAN Signed: 10/14/2021 09:50 Receipt Acknowledged By: 10/14/2021 10:26 /shalonda/ DENG LOUISE, PAC PHYSICIAN DIRECTOR OF GRANTS * AWAITING SIGNATURE * PATRICIACHACHO 10/14/2021 ADDENDUM STATUS: COMPLETED reached out to this ghost writer directly. She st ates that they are four 1 mg dexamethasone pills short in their taper from Neurosurg at [facility]. Wanted this ghost writer to call some loc ally. This ghost writer explained that steroid tapers post brain surgery are not her area of expertise and declined to call in rx. This ghost writer instead reviewed discharge instru ctions (in [place]) with , who had not thought to consult them alth ough she does have paper copies. Reviewed with the numbers that [facility] ed them to call in such a situation. will call and will call this ghost writer back directly if not s uccessful (in which case this ghost writer would plan to try calling herself). was appreciative of the recommendation. /rubén MEJIA MD STAFF PHYSICIAN Signed: 10/14/2021 14:44
--- OUTSIDE RECORDS SUMMARY | 2021-11-18 09:29 | XMS_ITS | Encounter Summary ---
:1945 Author Organization [facility] Address [address] [place] [id number] Support Name Relationship Address Phone SILKE LOCKWOOD Unavailable [phone] [place] [address] SILKE LOCKWOOD Unavailable [phone] [address] Insurance Providers: All historical and current Section [...] Victor [place] M[place] Jun 10, [id number]abon [facility] (WNR) ADVANTAGE (WNR) 2020 8 [id number] [phone] ,ANDER Bennett [place] Jun 10, [id number] [facility]WNR[facility] 2018 3 [id number] [phone] ,ANDER Bennett Selected Encounter This section includes the information on record at CT for the Encounter. Date/Time Encounter Type Encounter Reason Provider Source Description Oct 13, 2021 Outpatient TELEPHONE PRIMARY ICD-10-CM C71.9 ZULEYMA MEJIA 01:40 PM Encounter CARE Malignant E neoplasm of brain, unspecified with Provider Comments: Secondary malignant neoplasm of brain (SNOMED CT [id number]) IHE Encounter Template Text not used by CT Assessments - Encounter Diagnoses This section includes the primary and secondary diagnoses documented for the Encounter. Date/Time Primary/Secondary Diagnosis Name Provider Source Diagnosis Oct 13, 2021 PRIMARY Malignant LIAM MEJIA [facility] 01:40 PM neoplasm of E HCS brain, unspecified Plan of Treatment: Future Appointments (+ 6 months) and Future Tests (+/- 45 days) The Plan of Treatment section includes future care activities for the [facility] This section includes future appointments and future orders which are active, pending orscheduled.Future Appointments This section includes appointments that were scheduled to occur 6 months from the date of the Encounter, up to a maximum of 20 appointments. The data comes from all CT treatment facilities. Appointment Date/Time Appointment Type Appointment Facili ty Name Oct 14, 2021 10:30 AM AMBULATORY - MEDICINE [facility] Oct 25, 2021 12:27 PM AMBULATORY - NONE [facility] Oct 27, 2021 08:30 AM AMBULATORY - MEDICINE [facility] Oct 27, 2021 09:00 AM AMBULATORY - NONE [facility] Nov 02, 2021 09:00 AM AMBULATORY - MEDICINE [facility] Nov 15, 2021 10:00 AM AMBULATORY - NONE [facility] Nov 17, 2021 10:00 AM AMBULATORY - SURGERY [facility] S Dec 15, 2021 04:00 PM AMBULATORY - MEDICINE [facility] Active, Pending, and Scheduled Orders This section includes a listing of several types of active, pending, and scheduled orders, including clinic medications orders, diagnostic test orders, procedure orders and consult orders; where the start date of the order is 45 days before the date of the Encounter or 45 days after the date of the Encounter. The data comes from all [facility]. Test Date/Time Test Type Test Details Facility Name Oct 14, 2021 10:49 AM Consult Order [facility] CARE-RADIATION THERAPY [facility] Nov 17, 2021 10:20 AM Imaging - Magnetic MRI[facility]IN (P[facility] Resonance Imaging (MRI) Order Lab Results: +/- 30 days of the encounter This section includes the Chemistry and Hematology Lab Results on record with CT for the patient. Radiology Reports and Pathology [...] Oct 27, 2021 01:25 PM Reporting Lab: [facility] [address] Performing Lab: [facility] [address] FINGERSTICK GLUCOSE 109 H 70-100 Oct 27, 2021 [facility] COMPREHENSIVE METABOLIC Spec imen Type: PLASMA 08:53 AM PANEL+MG No comment enter ed. Ordering Provid er: DENG LOUISE Report Released Date/Time: Oct 14, 2021 10:46 AM Reporting Lab: [facility] [address] Performing Lab: [facility] [address] CREATININE 1.0 0.7-1.2 UREA NITROGEN 23 8-26 [...] Oct 14, 2021 10:46 AM Reporting Lab: [facility] [address] Performing Lab: [facility] [address] WBC 10.67 4.0-11.0 RBC 3.73 L 4.6-6.2 [...] Sep 15, 2021 10:02 AM Reporting [facility]: [facility] [address] Performing Lab: [facility] [address] POC CREATININE 1.2 0.6-1.3 Sep 15, 2021 09:[address] [facility] EXTRA MINT TUBE Specim en Type: PLASMA No comment enter ed. Ordering Provid er: LIAM MEJIA Report Released Date/Time: Sep 15, 2021 09:39 AM Reporting Lab: [facility] [address] Performing Lab: [facility] [address] EXTRA MINT TUBE RECEIVED Sep 15, 2021 [facility] COMPREHENSIVE METABOLIC Spec imen Type: PLASMA 09:35 AM PANEL+MG Comment: Dee sy Differential Performed Ordering Provid er: CHACHO GOMEZ Report Released Date/Time: May 21, 2021 03:59 PM Reporting Lab: [facility] [address] Performing Lab: [facility] Sep 15, 2021 [facility] RETICS Specimen Typ e: BLOOD 09:35 AM Comment: Automsegun sy Differential Performed Ordering Provid er: CHACHO GOMEZ Report Released Date/Time: May 21, 2021 03:59 PM Reporting Lab: [facility] [address] [facility] [address] Performing Lab: [facility] [address] ABS RETIC 0.0751 0.0300-0.1000 .RETICULOCYTE 1.78 0.6-2.0 IMMATURE RETIC 12.5 1.0-14.0 .RETICULOCYTE HE 34.2 28.2-36.6 Sep 15, 2021 09:[address] [facility] LD,TOTAL Specim en Type: PLASMA No comment enter ed. Ordering Provid er: CHACHO GOMEZ Report Released Date/Time: May 21, 2021 03:59 PM Reporting Lab: [facility] [address] [facility] [address] Performing Lab: [facility] [address] [facility] [address] LD,TOTAL 148 125-220 Sep 15, 2021 09:[address] [facility] FOLATE Specim en Type: SERUM No comment enter ed. Ordering Provid er: CHACHO GOMEZ Report Released Date/Time: May 21, 2021 03:59 PM Reporting Lab: [facility] [address] [facility] [address] Performing Lab: [facility] [address] [facility] [address] FOLATE >20.0 >7.0 Sep 15, 2021 09:[address] [facility] B 12 Specim en Type: SERUM No comment enter ed. Ordering Provid er: CHACHO GOMEZ Report Released Date/Time: May 21, 2021 03:59 PM Reporting Lab: [facility] [address] [facility] [address] Performing Lab: [facility] [address] [facility] [address] B 12 [phone] Sep 15, 2021 09:[address] [facility] IRON GROUP Specim en Type: SERUM No comment enter ed. Ordering Provid er: CHACHO GOMEZ Report Released Date/Time: May 21, 2021 03:59 PM Reporting Lab: [facility] [address] [facility] [address] Performing Lab: [facility] [address] [facility] [address] IRON 71 65-175 TIBC,CALCULATED 258 250-425 FERRITIN 195.5 21.8-274.7 IRON SATURATION 28 20-50 TRANSFERRIN 206 163-382 Sep 15, 2021 [facility] LIPID PANEL,NON-FASTING Spec imen Type: PLASMA 09:35 AM Comment: Dee Pierre Performed Ordering Provid er: LIAM MEJIA Report Released Date/Time: May 29, 2021 05:51 PM Reporting Lab: [facility] [address] [facility] [address] Performing Lab: [facility] Sep 15, 2021 [facility] TSH W/REFLEX TO FREE T4 Spec imen Type: PLASMA 09:35 AM No comment enter ed. Ordering Provid er: LIAM MEJIA Report Released Date/Time: May 29, 2021 05:51 PM Reporting Lab: [facility] [address] [facility] [address] Performing Lab: [facility] [address] TSH 1.72 0.35-4.94 Sep 15, 2021 09:35 [facility] EXTRA PURPLE TUBE Specime n Type: BLOOD AM No comment enter ed. Ordering Provid er: LIAM MEJIA Report Released Date/Time: Sep 15, 2021 09:39 AM Reporting Lab: [facility] [address] Performing Lab: [facility] [address] EXTRA PURPLE TUBE RECEIVED Sep 15, 2021 09:[address] [facility] CBC & DIFF Specim en Type: BLOOD Comment: Automa kerrie Differential Performed Ordering Provid er: CHACHO GOMEZ Report Released Date/Time: May 21, 2021 03:59 PM Reporting Lab: [facility] [address] [facility] [address] Performing Lab: [facility] [address] WBC 7.54 4.0-11.0 RBC 4.22 L 4.6-6.2 [...] smoking and tobacco-related health factors from the CT facility where the Encounter took place.Current Smoking Status This section includes the most current smoking, or tobacco-related health factor, from the CT facility where the Encounter took place. Date/Time Current Smoking Status Comment Facility May 26, 2021 03:30 PM VA-TOBACCO FORMER USER [facility] Tobacco Use History This section includes a history of the smoking, or tobacco- related health factors, that were collected on or before the date of the Encounter. The data comes from the [facility] where the Encounter took place. Date/Time Smoking Status/Tobacco Use Comment [facility] it May 26, 2021 03:30 PM VA-TOBACCO QUIT [address] [facility] Jul 05, 2020 06:42 PM VA-TOBACCO FORMER USER [facility] Jan 09, 2018 02:01 PM VA-TOBACCO FORMER USER [facility] Jan 09, 2018 02:01 PM VA-TOBACCO [...] ALL of a patient's completed or amended CT Advance and Rescinded Directives. The entries below [...] the Encounter. The data comes from all CT treatment facilities. Date/Time Radiology Report Provider Source Oct 27, 2021 08:[address] BODY WITH CONTRAST: ELENA MORRIS [facility] ANDER LOCKWOOD [id number] -[birth year]G 24 [phone] 7 M Exm Date: OCT 27, 2021@08:53 Req Phys: DENG LOUISE Loc: [facility] HEM ONC PHONE DANI (Req'g Img Loc: NUC MED Service: Unknown (Case [id number] COMPLETE) PET IMAGE W/CT SKULL-THIGH (NM Detailed) CPT:42107 Reason for Study: pt with non-small cell lung c ancer, also has follicular lymphom; (Case 1910 COMPLETE) F-18 FDG (NM Detailed) CPT: A9552 Clinical History: [facility] IS NOT under investigation for COVID-19 or is COVID-19 negative pt with non-small cell lung cancer, also has fo llicular lymphom; now with brain met (resected at [facility] )- please eval disease status Responsible provider name a nd phone number to notify for critical findings if other than user placing the order and pager listed below: User placing orders pag er: [phone] LAST CREATININE 1.2 (09/15/21) Report Status: Verified Date Reported: OCT 27, 2021 Date Verified: OCT 27, 2021 Forestry And Wildlife Manager E-Sig:/ES/ELENA MORRIS MD Report: PET/CT SCAN INDICATION: Patient with non-small cell lung ca ncer, also has follicular lymphoma. Now with brain metastases, resected at [facility] 10/07/2021. These evaluate for disease status. COMPARISON: [...] Staff: ELENA MORRIS MD, RADIOLOGY STAFF PHYSICIAN (Raji erifier) /LILLIAN Sep 15, 2021 10:[address] (CAP) CHEST/ABD/PELVIS (P): Dimitri DACOSTA [facility] ANDER LOCKWOOD [id number] -[birth year]G [birth year], [birth year] 7 M Exm Date: SEP 15, 2021@10:12 Req Phys: PATRICIA,CHACHO Pat Loc: [facility] HEM ONC PHON E PATRICIA (Req'g Img Loc: CT IMAGING Service: Unknown (Case 1583 COMPLETE) CT (CAP) CHEST W CONTRAST ( CT Detailed) CPT:53210 Contrast Media : Non-ionic Iodinated Reason for Study: follicular lymphoma, NSCLC, R renal lesion (Case 1584 COMPLETE) CT (CAP) ABDOMEN/PELVIS W C ONTRAS(CT Detailed) CPT:51334 Contrast Media : Non-ionic Iodinated Clinical History: [facility] IS NOT under investigation for COVID-19 or [...] pager listed below: User placing orders pager: [phone] LAST 3: Collection DT Specimen Test Name [...] 15, 2021 Date Verified: SEP 15, 2021 Forestry And Wildlife Manager E-Sig:/ES/JASPREET DACOSTA MD Report: EXAM: CT [...] Staff: JASPREET DACOSTA MD, STAFF NUCLEAR RADIOLOGIST (Forestry And Wildlife Manager) /CPD Pathology Reports: +/- 30 days [...] the Encounter. The data comes from all CT treatment facilities. Date/Time Pathology Report Provider Source Oct 21, 2021 02:36 LR SURGICAL PATHOLOGY REPORT: MIGUELITO HEWITT [facility] LOCAL TITLE: LR SURGICAL PATHOLOGY REPORT STANDARD TITLE: PATHOLOGY REPORT DATE OF NOTE: OCT 21, 2021@14:36:45 ENTRY DATE: OCT 21, 2021@14:36:45 AUTHOR: MIGUELITO HEWITT EXP COSIGNER: URGENCY: STATUS: COMPLETED $APHDR Reporting Lab: [facility] [CLIA# [id number]] [place] [address] - - - - - - - [...] Submitted are 4 slides receiv ed from [facility]. After review the material is returned to: [facility] [address] [place] Division [place] [address] MICROSCOPIC DESCRIPTION: Microscopic examination performed. BB DIAGNOSIS [...] By: [facility] [CLIA# [id number]] [place] [address] $FTR - - - - - - [...] - - ANDER LOCKWOOD STANDARD FORM 515 ID:[id number] SEX:M :1945 AGE: 76 LOC: [id number] PCP: Liam Mejia MD /shalonda/ MIGUELITO HEWITT MD STAFF PATHOLOGIST Signed: 10/21/2021 14:36 Encounter Notes: All associated encounter notes This section contains the clinical notes associated to the Encounter. Date/Time Encounter Note(s) Provider Source Oct 13, 2021 01:40 PM PACT NOTE: LIAM MEJIA [facility] LOCAL TITLE: MEDICINE CLINIC PROVIDER TELEPHONE NOTE STANDARD TITLE: PACT NOTE DATE OF NOTE: OCT 13, 2021@13:40 ENTRY DATE: OCT 13, 2021@13:40:27 AUTHOR: LIAM MEJIA EXP COSIGNER: URGENCY: STATUS: COMPLETED History: This lead technical writer called and spoke with /pt/ and R N relative following review of records in [facility] and [facility]. states pt is supposed to f/u with [facility] Neurosurgery but does not yet hav e appt date. This lead technical writer reviewed that unfortunately due to the facts huber t [facility] is not w/in [facility] and the fact that pt is not drive time eligible for CC, any follow up that is covered financiall y by CT will need to be done through [facility] if services are available here. Reviewed that he could f/u with [facility] using his Medicare benef it if he preferred. Inquired if pt had other follow up appts (other than in-h ome Speech Therapy), and is not aware of any at present, although was und er the impression he would need to follow up with some type of cancer provi reji. She reports that [facility] has not yet reviewed pathology with umer kemp. This lead technical writer gently reviewed available frozen section pathology repo rts currently available in [facility]. 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 Reviewed that this indicates that recen t brain mass is related to pt's underlying lung cancer, thus it is essentia lly all the same problem, and that attempting to divide care between his brain and lung cancers does not really make clinical sense. Reviewed that [place] [facility] CT Heme/Onc provider appears to be planning to review rx options by maria esther barrrea during appt pending 10/14/21. Pt/family were appreciative of detailed explanation but need to talk over whether pt prefers post op visit with Neuro surgery at [facility] using medicare benefit or to have PCP place Neur osurg consult. This lead technical writer will plan to call pt/family morning of 10/14/21 pr ior [facility] Pt/family in agreement with plan. Objective: Assessment/Plan: as above - diagnosis: malignant neoplasm of brain. Education/Counseling: Time spent carton filler: 11-20 minutes /shalonda/ LIAM MEJIA MD STAFF PHYSICIAN Signed: 10/14/2021 09:27 Receipt Acknowledged By: 10/14/2021 09:38 /shalonda/ NIKOLAY HOOKS PHYSICIAN SOCIAL WORKER CLINICAL * AWAITING SIGNATURE * CHACHO GOMEZ
--- OUTSIDE RECORDS SUMMARY | 2021-11-18 09:30 | XMS_ITS | Encounter Summary ---
:1945 Author Organization [facility] Address [address] [place] [address] Support Name Relationship Address Phone SILKE LOCKWOOD Unavailable [id number] [place] [phone] SILKE LOCKWOOD Unavailable [phone] [id number] [place] [phone] Insurance Providers: All historical and current Section [...] Victor [place] Jun 10, [id number] [facility]NR) 2020 8 [id number] [phone] ,ANDER Bennett [place] Jun 10, [id number] [facility] (WNR) ADVANTAGE (WNR) 2018 3 [id number] [phone] ,ANDER Bennett Selected Encounter This section includes the information on record at [place] for the Encounter. Date/Time Encounter Type Encounter Reason Provider Source Description Oct 21, 2021 02:36 Outpatient EVENT (HISTORICAL) PJ HEWITT PM Encounter IHE Encounter Template Text not used by [place] Plan of Treatment: Future Appointments (+ 6 months) and Future Tests (+/- 45 days) The Plan of Treatment section includes future care activities for the patient from all [place] treatmentfacilities. This section includes future appointments and future orders which are active, pending orscheduled.Future Appointments This section includes appointments that were scheduled to occur 6 months from the date of the Encounter, up to a maximum of 20 appointments. The data comes from all [place] treatment [facility]. Appointment Date/Time Appointment Type Appointment Facili ty Name Oct 25, 2021 12:27 PM AMBULATORY - NONE [facility] Oct 27, 2021 08:30 AM AMBULATORY - MEDICINE [facility] Oct 27, 2021 09:00 AM AMBULATORY - NONE [facility] Nov 02, 2021 09:00 AM AMBULATORY - MEDICINE [facility] Nov 15, 2021 10:00 AM AMBULATORY - NONE [facility] Nov 17, 2021 10:00 AM AMBULATORY - SURGERY [facility] Dec 15, 2021 04:00 PM AMBULATORY - MEDICINE [facility] Active, Pending, and [...] the Encounter. The data comes from all [place] treatment [facility]. Test Date/Time Test Type Test Details Facility Name Oct 14, 2021 10:49 AM Consult Order [facility] CARE-RADIATION THERAPY Cons Film Producer's Choice Nov 17, 2021 10:20 AM Imaging - Magnetic MRI-BRAIN (P) [facility] Resonance Imaging (MRI) Order Lab Results: [...] Reference Range Comment Oct 27, 2021 09:00 [facility] FINGERSTICK GLUCOSE Speci men Type: BLOOD AM Comment: Apolonia Cyr eszion Ordering Provid er: LIAM MEJIA Report Released Date/Time: Oct 27, 2021 01:25 PM Reporting Lab: [facility] [address] [facility] [address] Performing Lab: [facility] [address] [facility] [address] [facility] [address] FINGERSTICK GLUCOSE 109 H 70-100 Oct 27, 2021 [facility] COMPREHENSIVE METABOLIC Spec imen Type: PLASMA 08:53 AM PANEL+MG No comment enter ed. Ordering Provid er: DENG LOUISE Report Released Date/Time: Oct 14, 2021 10:46 AM Reporting Lab: [facility] [address] Performing Lab: [facility] [address] CREATININE 1.0 0.7-1.2 UREA NITROGEN 23 8-26 [...] 78 >60 Oct 27, 2021 08:53 AM [facility] CBC & DIFF Specim en Type: BLOOD Comment: Automa kerrie Differential Performed Ordering Provid er: DENG LOUISE Report Released Date/Time: Oct 14, 2021 10:46 AM Reporting Lab: [facility] [address] Performing Lab: [facility] [address] WBC 10.67 4.0-11.0 RBC 3.73 L 4.6-6.2 [...] IG(META,MYELO,PRO) 0.6 ABS IMMATURE GRAN 0.06 0-0.1 Social History: Smoking Status (Most current) and Tobacco Use (All prior to encounter date) This section includes the most current, and the historical, smoking and tobacco-related health factors from the [place] facility where the Encounter took place.Current Smoking Status This section includes the most current smoking, or tobacco-related health factor, from the [place] facility where the Encounter took place. Date/Time Current Smoking Status Comment Facility May 26, 2021 03:30 PM VA-TOBACCO FORMER USER [facility] Tobacco Use History This section includes a history of the smoking, or tobacco- related health factors, that were collected on or before the date of the Encounter. The data comes from the [facility] where the Encounter took place. Date/Time Smoking Status/Tobacco Use Comment Facil it May 26, 2021 03:30 PM VA-TOBACCO QUIT 15 YRS OR MORE [facility] Jul 05, 2020 06:42 PM VA-TOBACCO FORMER USER [facility] Jan 09, 2018 02:01 PM VA-TOBACCO FORMER USER [facility] Jan 09, 2018 02:01 PM VA-TOBACCO QUIT 5 TO < 15 YRS [facility] Apr 16, 2017 10:17 AM FORMER TOBACCO USER 7Y OR GREATER [facility] Jun 09, 2016 10:03 AM FORMER TOBACCO USER 7Y OR GREATER [facility] May 06, 2015 08:19 AM FORMER TOBACCO USER 7Y OR GREATER [facility] Advance Directives: All historical and current Section Date Range: From patient's date of to the date document was created. This section includes ALL of a patient's completed or amended [place] Advance and Rescinded Directives. The entries below indicate that a directive exists for the patient, but an actual copy is not included with this document. The data comes from all [facility]. Date Advance Directives Provider Source July 24, 2021 ADVANCE DIRECTIVE PAPA LEWIS [facility] July 24, 2021 ADVANCE DIRECTIVE [...] the Encounter. The data comes from all [place] treatment facilities. Date/Time Radiology Report Provider Source Oct 27, 2021 08:[address] BODY WITH CONTRAST: ELENA MORRIS [facility] ANDER LOCKWOOD [id number] -[birth year], [birth year] 7 M Exm Date: OCT 27, 2021@08:53 Req Phys: DENG LOUISE Loc: [facility] HEM ONC PHONE DANI (Req'g Img Loc: NUC MED Service: Unknown (Case 1909 COMPLETE) PET IMAGE W/CT SKULL-THIGH (NM Detailed) CPT:60790 Reason for Study: pt with non-small cell lung c ancer, also has follicular lymphom; (Case 1910 COMPLETE) F-18 FDG (NM Detailed) CPT: A9552 Clinical History: [place] IS NOT under investigation for COVID-19 or is COVID-19 negative pt with non-small cell lung cancer, also has fo llicular lymphom; now with brain met (resected at [place] )- please eval disease status Responsible provider name a nd phone number to notify for critical findings if other than user placing the order and pager listed below: User placing orders pag er: [phone] LAST CREATININE 1.2 (09/15/21) Report Status: Verified Date Reported: OCT 27, 2021 Date Verified: OCT 27, 2021 Engineering Supervisor E-Sig:/ES/ELNEA MORRIS MD Report: PET/CT SCAN INDICATION: Patient with non-small cell lung ca ncer, also has follicular lymphoma. Now with brain metastases, resected at [place] 10/07/2021. These evaluate for disease status. COMPARISON: [...] note that patient had a dedicated [facility] on 09/[facility]2021 for detailed description of radiographic [...] ELENA MORRIS MD, RADIOLOGY STAFF PHYSICIAN (Raji gibson) /LILLIAN Pathology Reports: +/- 30 days of the [...] the Encounter. The data comes from all [place] treatment facilities. Date/Time Pathology Report Provider Source Oct 21, 2021 02:36 LR SURGICAL PATHOLOGY REPORT: MIGUELITO HEWITT [facility] LOCAL TITLE: LR SURGICAL PATHOLOGY REPORT STANDARD TITLE: PATHOLOGY REPORT DATE OF NOTE: OCT 21, 2021@14:36:45 ENTRY DATE: OCT 21, 2021@14:36:45 AUTHOR: MIGUELITO HEWITT EXP COSIGNER: URGENCY: STATUS: COMPLETED $APHDR Reporting Lab: [facility] [CLIA# [id number]] [place] [address] - - - - - - - [...] Submitted are 4 slides receiv ed from [facility]. After review the material is returned to: [facility] [address] [place] Division [place] [address] MICROSCOPIC DESCRIPTION: Microscopic examination performed. BB DIAGNOSIS [...] Performing Laboratory: Surgical Pathology Report Performed By: [facility] [CLIA# [id number]] [place] [address] $FTR - - - - - - - - - - - - - - - - - - - - - - - - - - - - - - - - - - - - - - - - (End of report) MIGUELITO HEWITT MD b Date Oct 21, 2021 - - - - - - - - - - - - - - - - - - - - - - - - - - - - - - - - - - - - - - - - ANDER LOCKWOOD STANDARD FORM 515 ID:[id number] SEX:M :1945 AGE: 76 LOC: 72995 PCP: Liam Mejia MD /shalonda/ MIGUELITO HEWITT MD STAFF PATHOLOGIST Signed: 10/21/2021 14:36 Encounter Notes: All associated encounter notes This section contains the clinical notes associated to the Encounter. Date/Time Encounter Note(s) Provider Source Oct 21, 2021 02:36 PATHOLOGY REPORT: MIGUELITO HEWITT [facility] LOCAL TITLE: LR SURGICAL PATHOLOGY REPORT STANDARD TITLE: PATHOLOGY REPORT DATE OF NOTE: OCT 21, 2021@14:36:45 ENTRY DATE: OCT 21, 2021@14:36:45 AUTHOR: MIGUELITO HEWITT EXP COSIGNER: URGENCY: STATUS: COMPLETED $APHDR Reporting Lab: [facility] [CLIA# [id number]] [place] [address] - - - - - - - [...] - PATHOLOGY REPORT Accession No. [id number] - - - - - - - [...] Submitted are 4 slides receiv ed from [facility]. After review the material is returned to: [address] [place] Division [place] [address] MICROSCOPIC DESCRIPTION: Microscopic examination performed. BB DIAGNOSIS ([id number]; 10/07/2021): A. and B. Brain, left frontal [...] Performing Laboratory: Surgical Pathology Report Performed By: [facility] [CLIA# [id number]] [place] [address] $FTR - - - - - - [...] - - ANDER LOCKWOOD STANDARD FORM 515 ID:[id number] SEX:M :1945 AGE: 76 LOC: 44249 PCP: Liam Mejia MD /shalonda/ MIGUELITO HEWITT MD STAFF PATHOLOGIST Signed: 10/21/2021 14:36
--- OUTSIDE RECORDS SUMMARY | 2021-11-18 09:30 | XMS_ITS | Encounter Summary ---
:1945 Author Organization [facility] Address [address] [place] [address] Support Name Relationship Address Phone SILKE LOCKWOOD Unavailable [id number] [place] [address] SILKE LOCKWOOD Unavailable [id number] [id number] Insurance Providers: All historical and current Section [...] Victor [place] Jun 10, [id number] [facility] (WNR) ADVANTAGE (WNR) 2019 8 [id number] [phone] ,ANDER Bennett [place] Jun 10, [id number] [facility]WNR) 2018 3 [id number] [phone] ,ANDER Bennett Selected Encounter This section includes the information on record at [place] for the Encounter. Date/Time Encounter Type Encounter Reason Provider Source Description Oct 19, 2021 03:35 Outpatient TELEPHONE TRIAGE LAURIE SEXTON PM Encounter IHE Encounter Template Text not [...] The data comes from all [place] treatment [facility]. Appointment Date/Time Appointment Type Appointment Facili ty Name Oct 25, 2021 12:27 PM AMBULATORY - NONE [facility] Oct 27, 2021 08:30 AM AMBULATORY - MEDICINE [facility] Oct 27, 2021 09:00 AM AMBULATORY - NONE [facility] Nov 02, 2021 09:00 AM AMBULATORY - MEDICINE [facility] Nov 15, 2021 10:00 AM AMBULATORY - NONE [facility] Nov 17, 2021 10:00 AM AMBULATORY - SURGERY [facility] S Dec 15, 2021 04:00 PM AMBULATORY - MEDICINE [facility] Active, Pending, and Scheduled Orders This [...] The data comes from all [place] treatment [facility]. Test Date/Time Test Type Test Details Facility Name Oct 14, 2021 10:49 AM Consult Order [facility] CARE-RADIATION THERAPY Cons National Insurance Officer's Choice Nov 17, 2021 10:20 AM Imaging - Magnetic MRI-BRAIN (P) [facility] Resonance Imaging (MRI) Order Lab Results: +/- [...] Comment Oct 27, 2021 09:00 [facility] FINGERSTICK GLUCOSE Speci men Type: BLOOD AM Comment: Apolonia hamilton Ordering Provid er: LIAM MEJIA Report Released Date/Time: Oct 27, 2021 01:25 PM Reporting Lab: [facility] [address] [facility] [address] Performing Lab: [facility] [address] [facility] [address] FINGERSTICK GLUCOSE 109 H 70-100 Oct 27, 2021 [facility] COMPREHENSIVE METABOLIC Spec imen Type: PLASMA 08:53 AM PANEL+MG No comment enter ed. Ordering Provid er: DENG LOUISE Report Released Date/Time: Oct 14, 2021 10:46 AM Reporting Lab: [facility] [address] Performing Lab: [facility] [address] CREATININE 1.0 0.7-1.2 UREA NITROGEN 23 8-26 [...] Oct 27, 2021 08:53 AM [facility] CBC & DIFF Specim en Type: BLOOD Comment: Automa kerrie Differential Performed Ordering Provid er: DENG LOUISE Report Released Date/Time: Oct 14, 2021 10:46 AM Reporting Lab: [facility] [address] Performing Lab: [facility] [address] WBC 10.67 4.0-11.0 RBC 3.73 L 4.6-6.2 [...] smoking and tobacco-related health factors from the [facility] where the Encounter took place.Current Smoking Status This section includes the most current smoking, or tobacco-related health factor, from the [place] facility where the Encounter took place. Date/Time Current Smoking Status Comment Facility May 26, 2021 03:30 PM VA-TOBACCO FORMER USER [facility] Tobacco Use History This section includes a history of the smoking, or tobacco- related health factors, that were collected on or before the date of the Encounter. The data comes from the [facility] where the Encounter took place. Date/Time Smoking Status/Tobacco Use Comment Facil it May 26, 2021 03:30 PM VA-TOBACCO QUIT 15 YRS OR MORE [facility] Jul 05, 2020 06:42 PM VA-TOBACCO FORMER USER [facility] Jan 09, 2018 02:01 PM VA-TOBACCO FORMER USER [facility] Jan 09, 2018 02:01 PM VA-TOBACCO QUIT 5 TO < 15 YRS [facility] Apr 16, 2017 10:17 AM FORMER TOBACCO USER 7Y OR GREATER [facility] Jun 09, 2016 10:03 AM FORMER TOBACCO USER 7Y OR GREATER [facility] May 06, 2015 08:19 AM FORMER TOBACCO USER 7Y OR GREATER [facility] Advance Directives: All historical and current [...] 2021 ADVANCE DIRECTIVE PAPA LEWIS [facility] July 24, 2021 ADVANCE DIRECTIVE DISCUSSION PAPA LEWIS [facility] Radiology Reports: +/- 30 days of [...] BODY WITH CONTRAST: ELENA MORRIS [facility] ANDER LOCKWOOD [id number] -[birth year] 24, [birth year] 7 M Exm Date: OCT 27, 2021@08:53 Req Phys: DENG LOUISE Loc: [facility] HEM ONC PHONE DANI (Req'g Img Loc: [facility]UC MED Service: Unknown (Case 1909 COMPLETE) PET IMAGE W/CT SKULL-THIGH (NM Detailed) CPT:50719 Reason for Study: pt with non-small cell lung c ancer, also has follicular lymphom; (Case 1910 COMPLETE) F-18 FDG (NM Detailed) CPT: A9552 Clinical History: IS NOT under investigation for COVID-19 or is COVID-19 negative pt with non-small cell lung cancer, also has fo llicular lymphom; now with brain met (resected at [place] )- please eval disease status Responsible provider name a nd phone number to notify for critical findings if other than user placing the order and pager listed below: User placing orders pag er: [phone] LAST CREATININE 1.2 (09/15/21) Report Status: Verified Date Reported: OCT 27, 2021 Date Verified: OCT 27, 2021 Cash Processing Specialist E-Sig:/ES/ELENA MORRIS MD Report: PET/CT SCAN INDICATION: Patient with non-small cell lung ca ncer, also has follicular lymphoma. Now with brain metastases, resected at [place] 10/07/2021. These evaluate for disease status. COMPARISON: [...] note that patient had a dedicated CT [facility] on 09/15/2021 for detailed description of radiographic [...] 02:36 LR SURGICAL PATHOLOGY REPORT: MIGUELITO HEWITT [facility] LOCAL TITLE: LR SURGICAL PATHOLOGY REPORT STANDARD TITLE: PATHOLOGY REPORT DATE OF NOTE: OCT 21, 2021@14:36:45 ENTRY DATE: OCT 21, 2021@14:36:45 AUTHOR: MIGUELITO HEWITT EXP COSIGNER: URGENCY: STATUS: COMPLETED $APHDR Reporting Lab: [facility] [CLIA# [id number]] [place] [address] - - - - - - - [...] are 4 slides receiv ed from [facility]. After review the material is returned to: [facility] [address] [place] [address] Dr. W[place]KINS Division [place] [address] MICROSCOPIC DESCRIPTION: Microscopic examination performed. BB DIAGNOSIS [...] Surgical Pathology Report Performed By: [facility] [CLIA# [id number]] [place] [address] $FTR - - - - - - [...] - - ANDER LOCKWOOD STANDARD FORM 515 ID:[id number] SEX:M :1945 AGE: 76 LOC: 18101 PCP: Liam Mejia MD /shalonda/ MIGUELITO HEWITT MD STAFF PATHOLOGIST Signed: 10/21/2021 14:36 Encounter Notes: All associated encounter notes This section contains the clinical notes associated to the Encounter. Date/Time Encounter Note(s) Provider Source Oct 19, 2021 03:35 PM RN PROGRESS NOTE: FLETCHER SEXTON [facility] LOCAL TITLE: CCC: CLINICAL TRIAGE STANDARD TITLE: RN PROGRESS NOTE DATE OF NOTE: OCT 19, 2021@15:35:15 ENTRY DATE: OCT 19, 2021@15:35:15 AUTHOR: FLETCHER SEXTON EXP COSIGNER: URGENCY: STATUS: COMPLETED Patient Demographics Patient Name: ANDER LOCKWOOD Patient Primary Address: [address] [place] [address] Way < br>[place] [address] Patient Primary Phone: [phone] Patient : 1945 SSN: [id number] Patient Age: 76 Caller Relationship: Home Health Caller Name: Angelita Emergency Contactx: SILKE LOCKWOOD Emergency Contact Phonex: Triage Summary Nurse Summary: Call from nurse Angelita [phone]. States vet is having olga removed from surgica l incision on his head. States is asking about what to put on scars to help them heal better/sh ow up less. Discussed keeping the area clean from infection. Use of Vit E or O TC Maderna may be helpful. Apply with a Qtip or similar Conducted triage/discussed symptoms Utilized the Triage Tool: No Chief Complaint: Care for incision Nurse's Recommendation / WHEN: Selfcare Nurse's Recommendation / WHERE: Home Care Patient Disposition Patient/Caregiver agrees to plan of care: Yes Summary of Actions Other course(s) of action Alternative course of action Alternative courses of action: Care for scars Clinical Contact Center Codes Clinic/Location: V23 [facility] PHONE CCC RN /shalonda/ FLETCHER SEXTON RN VISN 23 Daytime process environmental technician Signed: 10/19/2021 15:35
--- OUTSIDE RECORDS SUMMARY | 2021-11-18 09:31 | XMS_ITS | Encounter Summary ---
:1945 Author Organization [facility] Address [address] [place] [address] Support Name Relationship Address Phone SILKE LOCKWOOD Unavailable [id number] [place] [address] SILKE LOCKWOOD Unavailable [id number] [place] [address] Insurance Providers: All historical and current Section [...] Victor [place] Jun 10, [id number] [facility] (WNR) ADVANTAGE (WNR) 2019 8 [id number] [phone] ,ANDER Bennett [place] Jun 10, [id number] P [facility] (WNR) ADVANTAGE (WNR) 2018 3 [id number] [phone] ,ANDER Bennett Selected Encounter This section includes the information on record at [place] for the Encounter. Date/Time Encounter Type Encounter Description Reason Provider Source Oct 24, 2021 02:28 Outpatient Encounter TELEPHONE TRIAGE PM IHE Encounter [...] 2021 12:27 PM AMBULATORY - NONE [facility] Oct 27, 2021 08:30 AM AMBULATORY - MEDICINE [facility] Oct 27, 2021 09:00 AM AMBULATORY - NONE [facility] Nov 02, 2021 09:00 AM AMBULATORY - MEDICINE [facility] Nov 15, 2021 10:00 AM AMBULATORY - NONE [facility] Nov 17, 2021 10:00 AM AMBULATORY - SURGERY [facility] S Dec 15, 2021 04:00 PM [...] data comes from all [place] treatment facilities. Test Date/Time Test Type Test Details Facility Name Oct 14, 2021 10:49 AM Consult Order [facility] CARE-RADIATION THERAPY Cons Guard Immigration's Choice Nov 17, 2021 10:20 AM Imaging - Magnetic MRI-BRAIN (P) [facility] Resonance Imaging (MRI) Order Lab Results: [...] Range Comment Oct 27, 2021 09:00 [facility] FINGERSTICK GLUCOSE Speci men Type: BLOOD AM Comment: Save R esult Ordering Provid er: LIAM MEJIA Report Released Date/Time: Oct 27, 2021 01:25 PM Reporting Lab: [facility] [address] [facility] [address] Performing Lab: [facility] [address] [facility] [address] FINGERSTICK GLUCOSE 109 H 70-100 Oct 27, 2021 08:[address] [facility] CBC & DIFF Specim en Type: BLOOD Comment: Automa kerrie Differential Performed Ordering Provid er: DNEG LOUISE Report Released Date/Time: Oct 14, 2021 10:46 AM Reporting Lab: [facility] [address] Performing Lab: [facility] [address] WBC 10.67 4.0-11.0 RBC 3.73 L 4.6-6.2 [...] IG(META,MYELO,PRO) 0.6 ABS IMMATURE GRAN 0.06 0-0.1 Oct 27, 2021 [facility] COMPREHENSIVE METABOLIC Spec imen Type: PLASMA 08:53 AM PANEL+MG No comment enter ed. Ordering Provid er: DENG LOUISE Report Released Date/Time: Oct 14, 2021 10:46 AM Reporting Lab: [facility] [address] Performing Lab: [facility] [address] CREATININE 1.0 0.7-1.2 UREA NITROGEN 23 8-26 GLUCOSE 115 H 70-100 SODIUM 141 136-145 POTASSIUM 4.1 3.5-5.1 CHLORIDE 109 H 98-107 CO2 24 22-29 CALCIUM 8.8 8.4-10.2 PROTEIN,TOTAL 6.0 6.0-8.3 ALBUMIN 3.4 L 3.5-5.2 BILIRUBIN, TOTAL 0.3 0.2-1.2 MAGNESIUM 1.9 1.6-2.6 ANION GAP 8 5-15 ALKALINE PHOSPHATASE 66 40-150 ALT/SGPT 26 <55 AST/SGOT 10 <34 CREAT EGFR(CKD-EPI) 78 >60 Social History: Smoking Status (Most current) and [...] 2021 03:30 PM [facility] [facility] [place] VA-TOBACCO QUIT [address] [facility] Jul 05, 2020 06:42 PM VA-TOBACCO FORMER [facility]ER [facility] Jan 09, 2018 02:01 PM VA-TOBACCO FORMER USER [facility] Jan 09, 2018 02:01 PM VA-TOBACCO QUIT 5 TO < [address] [facility] Apr 16, 2017 10:17 AM FORMER TOBACCO USER 7Y OR GREATER [facility] Jun 09, 2016 10:03 AM FORMER TOBACCO USER 7Y OR GREATER [facility] May 06, 2015 08:19 AM FORMER TOBACCO USER 7Y OR GRE[address] [facility] Advance Directives: All historical and current Section Date Range: From patient's date of to the date document was created. This section includes ALL of a patient's completed or amended [place] Advance and Rescinded Directives. The entries below indicate that a directive exists for the patient, but an actual copy is not included with this document. The data comes from all [facility]. Date Advance Directives Provider Source July 24, 2021 ADVANCE [address] [facility] July 24, 2021 ADVANCE DIRECTIVE DISCUSSION PAPA [facility] Radiology Reports: +/- 30 days of [...] CT BODY WITH CONTRAST: ELENA MORRIS [facility] ANDER LOCKWOOD [id number] -[birth year] 24, [birth year] 7 M Exm Date: OCT 27, 2021@08:53 Req Phys: DENG LOUISE Loc: [facility] HEM ONC PHONE DANI (Req'g Img Loc: NUC MED Service: Unknown (Case 1909 COMPLETE) PET IMAGE W/CT SKULL-THIGH (NM Detailed) CPT:90901 Reason for Study: pt with non-small cell lung c ancer, also has follicular lymphom; (Case 1910 COMPLETE) F-18 FDG (NM Detailed) CPT: A9552 Clinical History: IS NOT under investigation for COVID-19 or is COVID-19 negative pt with non-small cell lung cancer, also has fo llicular lymphom; now with brain met (resected at [facility] )- please eval disease status Responsible provider name a nd phone number to notify for critical findings if other than user placing the order and pager listed below: User placing orders pag er: [phone] LAST CREATININE 1.2 (09/15/21) Report Status: Verified Date Reported: OCT 27, 2021 Date Verified: OCT 27, 2021 Glued Wood Tester E-Sig:/ES/ELENA MORRIS MD Report: PET/CT SCAN INDICATION: Patient with non-small cell lung ca ncer, also has follicular lymphoma. Now with brain metastases, resected at [facility] 10/07/2021. These evaluate for disease status. COMPARISON: [...] comes from all [place] treatment facilities. Date/Time Pathology Report Provider Source Oct 21, 2021 02:36 LR SURGICAL PATHOLOGY REPORT: MIGUELITO HEWITT [facility] LOCAL TITLE: LR SURGICAL PATHOLOGY REPORT STANDARD TITLE: PATHOLOGY REPORT DATE OF NOTE: OCT 21, 2021@14:36:45 ENTRY DATE: OCT 21, 2021@14:36:45 AUTHOR: MIGUELITO HEWITT EXP COSIGNER: URGENCY: STATUS: COMPLETED $APHDR Reporting Lab: [facility] [CLIA# [id number]] [place] [address] - - - - - - - [...] 4 slides receiv ed from [facility]. After review the material is returned to: [facility] [address] [place] Division [place] [address] MICROSCOPIC DESCRIPTION: Microscopic examination performed. BB DIAGNOSIS [...] Laboratory: Surgical Pathology Report Performed By: [facility] [CLIA# [id number]] [place] [address] $FTR - - - - - - [...] - - ANDER LOCKWOOD STANDARD FORM 515 ID:[id number] SEX:M :1945 AGE: 76 LOC: 01302 PCP: Liam Mejia MD /shalonda/ MIGUELITO HEWITT MD STAFF PATHOLOGIST Signed: 10/21/2021 14:36 Encounter Notes: All associated encounter notes This section contains the clinical notes associated to the Encounter. Date/Time Encounter Note(s) Provider Source Oct 24, 2021 02:28 PM REPORT OF CONTACT: TERRI NICHOLS [facility] LOCAL TITLE: PATIENT CONTACT NOTE A STANDARD TITLE: REPORT OF CONTACT DATE OF NOTE: OCT 24, 2021@14:28 ENTRY DATE: OCT 24, 2021@14:28:37 AUTHOR: ASHLYN NICHOLS EXP COSIGNER: URGENCY: STATUS: COMPLETED PATIENT CONTACT NOTE Has ADDENDA Patient contact Name of [place]: ANDER LOCKWOOD Name/Relationship of Contact if other than Veter an: Homecare RNAngelita [phone] Date & Time of Contact: Oct@14:28 Type of Contact: Telephone Reason for Contact: HHN calling on pt's behalf. References left frontal lobe craniotomy for tumor resection on 10/07/21. Today, pt reports good impro vement in symptoms. Requests PCP be notified that pt complained of dull pain/pressure in area of tumor. No change in vision. States that pt was d/c'd home after surgery with a 5-day course of a med for swelling. Completed the 5-day course 1 .5 weeks ago. Pt will be at [facility] on 10/27/21 for a PET scan. Requests PC return call to pt/. Confirmed ph one francis mai, /es/ TERRI NICHOLS RN, BSN VISN 23 Daytime pin inserter Signed: 10/24/2021 14:33 Receipt Acknowledged By: 10/24/2021 14:43 /rubén MEJIA MD STAFF PHYSICIAN 10/24/2021 15:14 /shalonda/ MARIA LUZ MANCERA RN RN 10/24/2021 ADDENDUM STATUS: COMPLETED Will ask PC RN to call pt/wi fe in follow up. Sister in law is RN who lives with them right now as well. For any new sx, would recommend ED evaluation. If they go locally, they must tell ED that pt is a and to call the [place] hospital notification line. PCP appreciative. /rubén MEJIA MD STAFF PHYSICIAN Signed: 10/24/2021 14:45 Receipt Acknowledged By: 10/24/2021 15:09 /shalonda/ MARIA LUZ MANCERA RN RN 10/24/2021 ADDENDUM STATUS: COMPLETED pt & contacted regarding above. Pt states his post-op pain is annoying. Pt talking clearly on phone, no changes in vision, no headache, no problems with balance or gait. Pt states, it feels like a dul l pressure. I'm having a PET scan on 10/27/2021, I'll just have a CT that day. Pt informed if there is swelling or problems pos t op he needs to be evaluated prior to 10/27/2021. Per Dr Mejia, PCP advised [facility] ED today. Pt prefers to go to [facility] for evaluation/CT. Pt had craniotomy at [facility] 10/07/21, has completed his post o p medications. Advised pt and to contact [facility] Call [facility] and inform they are going to be evaluated in [place] ED vs [facility] ED. They will do. /rubén MANCERA RN RN Signed: 10/24/2021 15:24
--- OUTSIDE RECORDS SUMMARY | 2021-11-18 09:31 | XMS_ITS | Encounter Summary ---
:1945 Author Organization [facility] Address [address] [place] [address] Support Name Relationship Address Phone SILKE LOCKWOOD Unavailable [id number] [place] [address] SILKE LOCKWOOD Unavailable [id number] [place] [address] Insurance Providers: All historical and current Section [...] Victor [place] Jun 10, [id number] [facility] (WNR) ADVANTAGE (WNR) 2019 8 [id number] [phone] ,ANDER Bennett [place] Jun 10, [id number] P ATIENT [facility] (WNR) ADVANTAGE (WNR) 2018 3 [id number] [phone] ,ANDER Bennett Selected Encounter This section includes the information on record at [place] for the Encounter. Date/Time Encounter Type Encounter Reason Provider Source Description Oct 25, 2021 12:27 Outpatient ADMIN PAT ACTIVDAREN COTTRELL PM Encounter (MASNONCT) L IHE Encounter Template Text not used by ID Plan of Treatment: Future Appointments (+ 6 [...] The data comes from all [place] treatment [facility]. Appointment Date/Time Appointment Type Appointment Facili ty Name Oct 27, 2021 08:30 AM AMBULATORY - MEDICINE [facility] Oct 27, 2021 09:00 AM AMBULATORY - NONE [facility] Nov 02, 2021 09:00 AM AMBULATORY - MEDICINE [facility] CS Nov 15, 2021 10:00 AM AMBULATORY - NONE [facility] Nov 17, 2021 10:00 AM AMBULATORY - SURGERY [facility] S Dec 15, 2021 04:00 PM AMBULATORY - MEDICINE [facility] Active, Pending, and Scheduled Orders This [...] The data comes from all [place] treatment [facility]. Test Date/Time Test Type Test Details Facility Name Oct 14, 2021 10:49 AM Consult Order [facility] C[facility]-RADIATION THERAPY Cons [employer] Supervisor's Choice Nov 17, 2021 10:20 AM Imaging - Magnetic MRI-BRAIN (P) [facility] Resonance Imaging (MRI) Order Lab Results: +/- [...] Range Comment Oct 27, 2021 09:00 [facility] FINGERSTICK GLUCOSE Speci men Type: BLOOD AM Comment: Apolonia Cyr esult Ordering Provid er: LIAM MEJIA Report Released Date/Time: Oct 27, 2021 01:25 PM Reporting Lab: [facility] [address] [place] [facility] [address] Performing Lab: [facility] [address] [facility] [address] FINGERSTICK GLUCOSE 109 H 70-100 Oct 27, 2021 [facility] COMPREHENSIVE METABOLIC Spec imen Type: PLASMA 08:53 AM PANEL+MG No comment enter ed. Ordering Provid er: DENG LOUISE Report Released Date/Time: Oct 14, 2021 10:46 AM Reporting Lab: [facility] [address] Performing Lab: [facility] [address] CREATININE 1.0 0.7-1.2 UREA NITROGEN 23 8-26 [...] >60 Oct 27, 2021 08:[address] [facility] CBC & DIFF Specim en Type: BLOOD Comment: Automa kerrie Differential Performed Ordering Provid er: DENG LOUISE Report Released Date/Time: Oct 14, 2021 10:46 AM Reporting Lab: [facility] [address] Performing Lab: [facility] [address] WBC 10.67 4.0-11.0 RBC 3.73 L 4.6-6.2 [...] 2021 03:30 PM VA-TOBACCO FORMER USER [facility] Tobacco Use History This section includes a history of the smoking, or tobacco- related health factors, that were collected on or before the date of the Encounter. The data comes from the [facility] where the Encounter took place. Date/Time Smoking Status/Tobacco Use Comment Facil it May 26, 2021 03:30 PM VA-TOBACCO QUIT [address] [facility] Jul 05, 2020 06:42 PM VA-TOBACCO FORMER USER [facility] Jan 09, 2018 02:01 PM VA-TOBACCO FORMER USER [facility] Jan 09, 2018 02:01 PM VA-TOBACCO QUIT 5 TO < [address] [facility] Apr 16, 2017 10:17 AM FORMER TOBACCO USER 7Y OR GREATER [facility] Jun 09, 2016 10:03 AM FORMER TOBACCO USER 7Y OR GRE[address] [facility] May 06, 2015 08:19 AM FORMER TOBACCO USER 7Y OR [facility] [facility] Advance Directives: All historical and current [...] comes from all [facility]. Date Advance Directives Provider Source July 24, 2021 ADVANCE DIRECT[address]APA LE[facility]IS [facility] July 24, 2021 ADVANCE DIRECTIVE DISCUSSION PAPA LEWIS [facility] Radiology Reports: +/- 30 days of the [...] CT BODY WITH CONTRAST: ELENA MORRIS [facility] ANDER LOCKWOOD [id number] -[birth year]G 24, [birth year] 7 M Exm Date: OCT 27, 2021@08:53 Req Phys: DENG LOUISE Loc: [facility] HEM ONC PHONE DANI (Req'g Img Loc: NUC MED Service: Unknown (Case 1909 COMPLETE) PET IMAGE W/CT SKULL-THIGH (NM Detailed) CPT:85333 Reason for Study: pt with non-small cell lung c ancer, also has follicular lymphom; (Case 1910 COMPLETE) F-18 FDG (NM Detailed) CPT: A9552 Clinical History: Stevens IS NOT under investigation for COVID-19 or is COVID-19 negative pt with non-small cell lung cancer, also has fo llicular lymphom; now with brain met (resected at [facility] )- please eval disease status Responsible provider name a nd phone number to notify for critical findings if other than user placing the order and pager listed below: User placing orders pag er: [phone] LAST CREATININE 1.2 (09/15/21) Report Status: Verified Date Reported: OCT 27, 2021 Date Verified: OCT 27, 2021 Geophysics Professor E-Sig:/ES/ELENA MORRIS MD Report: PET/CT SCAN INDICATION: Patient with non-small cell lung ca ncer, also has follicular lymphoma. Now with brain metastases, resected at [facility] 10/07/2021. These evaluate for disease status. COMPARISON: [...] comes from all [place] treatment facilities. Date/Time Pathology Report Provider Source Oct 21, 2021 02:36 LR SURGICAL PATHOLOGY REPORT: MIGUELITO HEWITT [facility] LOCAL TITLE: LR SURGICAL PATHOLOGY REPORT STANDARD TITLE: PATHOLOGY REPORT DATE OF NOTE: OCT 21, 2021@14:36:45 ENTRY DATE: OCT 21, 2021@14:36:45 AUTHOR: MIGUELITO HEWITT EXP COSIGNER: URGENCY: STATUS: COMPLETED $APHDR Reporting Lab: [facility] [CLIA# [id number]] [place] [address] - - - - - - - [...] Submitted are 4 slides receiv ed from [facility]. After review the material is returned to: [facility] [address] [place] Division [place] [address] MICROSCOPIC DESCRIPTION: Microscopic examination performed. BB DIAGNOSIS [...] Laboratory: Surgical Pathology Report Performed By: [facility] [CLIA# [id number]] [place] [address] $FTR - - - - - - [...] - - ANDER LOCKWOOD STANDARD FORM 515 ID:[id number] SEX:M :1945 AGE: 76 LOC: 20691 PCP: Liam Mejia MD /shalonda/ MIGUELITO HEWITT MD STAFF PATHOLOGIST Signed: 10/21/2021 14:36 Encounter Notes: All associated encounter notes This section contains the clinical notes associated to the Encounter. Date/Time Encounter Note(s) Provider Source Oct 25, 2021 09:30 AM NONVA NOTE: MEAGAN ROSENTHAL [facility] LOCAL TITLE: COMMUNITY CARE-ROB SELF PRESENTIN G CARE COORD PLAN STANDARD TITLE: NONVA NOTE DATE OF NOTE: OCT 25, 2021@09:30 ENTRY DATE: OCT 25, 2021@12:28:50 AUTHOR: MEAGAN ROSENTHAL EXP COSIGNER: URGENCY: STATUS: COMPLETED COMMUNITY CARE-ROB SELF PRESENTING CARE CO ORD PLAN NOTE Has ADDENDA Emergency Notification Intake Date Presenting to the Facility: Oct Method of Contact: Notified from [employer] worklist Notification ID: [id number] [facility] Referral #: Critical Access Hospital Hospital Name: Hospital: [facility] Address: [address] [place] [address] City: [place] State: [place] Zip Code: [address] Phone : Critical Access Hospital Facility Point of Contact: Name: Chief complaint: POST BRAIN SURGERY FOLLOW Primary Diagnosis: POST BRAIN SURGERY FOLLOW Disposition Unknown at time of intake note entry /shalonda/ MEAGAN ROSENTHAL MEDICAL CD MANUFACTURING SUPERVISOR Signed: 10/25/2021 12:30 Receipt Acknowledged By: 10/31/2021 16:03 /es/ DAREN HU RN [facility] UTILIZATION MANAGEMENT 10/31/2021 ADDENDUM STATUS: COMPLETED Stevens seen in the ED- records sent to [facility] to be uploaded. Records also available in V within [facility] es and Documents widget. Please review for plan of care and any follow up needed. Thank you. /es/ DAREN HU RN [facility] UTILIZATION MANAGEMENT Signed: 10/31/2021 16:05 Receipt Acknowledged By: 11/01/2021 08:52 /es/ MARIA LUZ MANCERA RN RN 11/04/2021 13:57 /es/ LIAM MEJIA MD STAFF PHYSICIAN 11/04/2021 ADDENDUM STATUS: COMPLETED Records from local 10/25/21 ED visit for post-ope rative headache reviewed in [facility]. Will alert Heme/Onc and Neurosurg providers (appt in Neurosurg pending 11/17/21) for their review of thes e records as well. This scientific writer is much appreciative to all undersigned. /es/ LIAM MEJIA MD STAFF PHYSICIAN Signed: 11/04/2021 13:58 Receipt Acknowledged By: * AWAITING SIGNATURE * DENG LOUISE * AWAITING SIGNATURE * ROBBY YANG
--- OUTSIDE RECORDS SUMMARY | 2021-11-18 09:32 | XMS_ITS | Encounter Summary ---
:1945 Author Organization [facility] rs Address [address] [place] [address] Support Name Relationship Address Phone SILKE LOCKWOOD Unavailable [id number] [address] SILKE LOCKWOOD Unavailable [id number] [address] Insurance Providers: All historical and current Section [...] Victor [place] Jun 10, [id number] ATIENT [facility] (WNR) ADVANTAGE (WNR) 2019 8 [id number] [phone] ,ANDER Bennett [place] Jun 10, [id number] P ATIENT [facility] (WNR) ADVANTAGE (WNR) 2018 3 [id number] [phone] ,ANDER Bennett Selected Encounter This section includes the information on record at [place] for the Encounter. Date/Time Encounter Type Encounter Reason Provider Source Description Oct 27, 2021 OFFICE O/P EST ONCOLOGY/TUMOR ICD-10-CM Z45.2 JONATAN SIFUENTES 08:30 AM SF 10-19 MIN Encounter for adjustment and management of VAD with Provider Comments: Encounter for adjustment and management of VAD IHE Encounter Template Text not used by [facility] Assessments - Encounter Diagnoses This section includes the primary and secondary diagnoses documented for the Encounter. Date/Time Primary/Secondary Diagnosis Name Provider Source Diagnosis Oct 27, 2021 PRIMARY Encounter for JODY SIFUENTES [facility] 08:55 AM adjustment and [facility] management of VAD Plan of Treatment: Future [...] Date/Time Appointment Type Appointment Facili ty Name Nov 02, 2021 09:00 AM AMBULATORY - MEDICINE [facility] CS Nov 15, 2021 10:00 AM AMBULATORY - NONE [facility] Nov 17, 2021 10:00 AM AMBULATORY - SURGERY [facility] S Dec 15, 2021 04:00 PM AMBULATORY - MEDICINE [facility] Active, Pending, and Scheduled Orders This section includes a listing of several types of active, pending, and scheduled orders, including clinic medications orders, diagnostic test orders, procedure orders and consult orders; where the start date of the order is 45 days before the date of the Encounter or 45 days after the date of the Encounter. The data comes from all [place] treatment facilities. Test Date/Time Test Type Test Details Facility Name Oct 14, 2021 10:[address] [facility] CARE-RADIATION THERAPY Cons Retort Furnace Helper's Choice Nov 17, 2021 10:20 AM Imaging - Magnetic MRI-BRAIN (P) [facility] Resonance Imaging (MRI) Order Lab Results: +/- 30 days of the encounter This section includes the Chemistry and Hematology Lab Results on record with [place] for the patient. Radiology Reports and Pathology Reports are provided separately, in subsequent sections.Lab Results This section contains the Chemistry/Hematology Results that were resulted 30 days before or 30 daysafter the date of the Encounter. Date/Time Source Result Type Result - Unit Interpretation Reference Range Comment Oct 27, 2021 09:00 [facility] FINGERSTICK GLUCOSE Speci men Type: BLOOD AM Comment: Apolonia hamilton Ordering Provid er: LIAM MEJIA Report Released Date/Time: Oct 27, 2021 01:25 PM Reporting Lab: [facility] [place] [facility] [address] Performing Lab: [facility] DRI VE [facility] [address] FINGERSTICK GLUCOSE 109 H 70-100 Oct 27, 2021 [facility] COMPREHENSIVE METABOLIC Spec imen Type: PLASMA 08:53 AM PANEL+MG No comment enter ed. Ordering Provid er: DENG LOUISE Report Released Date/Time: Oct 14, 2021 10:46 AM Reporting Lab: [facility] [address] Performing Lab: [facility] [address] CREATININE 1.0 0.7-1.2 UREA NITROGEN 23 8-26 [...] 78 >60 Oct 27, 2021 08:53 AM [facility] CBC & DIFF Specim en Type: BLOOD Comment: Automa kerrie Differential Performed Ordering Provid er: DENG LOUISE Report Released Date/Time: Oct 14, 2021 10:46 AM Reporting Lab: [facility] [address] Performing Lab: [facility] [address] WBC 10.67 4.0-11.0 RBC 3.73 L 4.6-6.2 [...] tobacco-related health factors from the [facility] where the Encounter took place.Current Smoking Status This section includes the most current smoking, or tobacco-related health factor, from the [place] facility where the Encounter took place. Date/Time Current Smoking Status Comment Facility May 26, 2021 03:30 PM VA-TOBACCO FORMER USER MIN [facility] Tobacco Use History This section includes a history of the smoking, or tobacco- related health factors, that were collected on or before the date of the Encounter. The data comes from the [place] facility where the Encounter took place. Date/Time Smoking Status/Tobacco Use Comment [facility] it May 26, 2021 03:30 PM VA-TOBACCO QUIT 15 YRS OR MORE [facility] Jul 05, 2020 06:42 PM VA-TOBACCO FORMER USER MIN [facility] Jan 09, 2018 02:01 PM VA-TOBACCO FORMER USER MIN [facility] Jan 09, 2018 02:01 PM VA-TOBACCO QUIT 5 TO < 15 YRS [facility] Apr 16, 2017 10:17 AM FORMER TOBACCO USER 7Y OR GREATER [facility] Jun 09, 2016 10:03 AM FORMER TOBACCO USER 7Y OR GREATER [facility] May 06, 2015 08:19 AM FORMER TOBACCO USER 7Y OR GREATER [facility] Advance Directives: All historical and current Section Date Range: From patient's date of to the date document was created. This section includes ALL of a patient's completed or amended [place] Advance and Rescinded Directives. The entries below indicate that a directive exists for the patient, but an actual copy is not included with this document. The data comes from all [facility]. Date Advance Directives Provider Source July 24, 2021 ADVANCE DIRECTIVE PAPA LEWIS [facility] July 24, 2021 ADVANCE DIRECTIVE DISCUSSION PAPA LEWIS [facility] Radiology Reports: +/- 30 days [...] the Encounter. The data comes from all [place] treatment facilities. Date/Time Radiology Report Provider Source Oct 27, 2021 08:[address] BODY WITH CONTRAST: ELENA MORRIS [facility] ANDER LOCKWOOD [id number] -[birth year], [birth year] 7 M Exm Date: OCT 27, 2021@08:53 Req Phys: DENG LOUISE Loc: [facility] HEM ONC PHONE DANI (Req'g Img Loc: NUC MED Service: Unknown (Case 1909 COMPLETE) PET IMAGE W/CT SKULL-THIGH (NM Detailed) CPT:53673 Reason for Study: pt with non-small cell lung c ancer, also has follicular lymphom; (Case 1910 COMPLETE) F-18 FDG (NM Detailed) CPT: A9552 Clinical History: IS NOT under investigation for COVID-19 or is COVID-19 negative pt with non-small cell lung cancer, also has fo llicular lymphom; now with brain met (resected at [place] )- please eval disease status Responsible provider name a nd phone number to notify for critical findings if other than user placing the order and pager listed below: User placing orders pag er: [phone] LAST CREATININE 1.2 (09/15/21) Report Status: Verified Date Reported: OCT 27, 2021 Date Verified: OCT 27, 2021 Railroad Repairer E-Sig:/ES/ELENA MORRIS MD Report: PET/CT SCAN INDICATION: Patient with non-small cell lung ca ncer, also has follicular lymphoma. Now with brain metastases, resected at [place] 10/07/2021. These evaluate for disease status. COMPARISON: [...] note that patient had a dedicated [facility] on 09/15/2021 for detailed description of [...] the Encounter. The data comes from all [place] treatment facilities. Date/Time Pathology Report Provider Source Oct 21, 2021 02:36 LR SURGICAL PATHOLOGY REPORT: MIGUELITO HEWITT [facility] PM LOCAL TITLE: LR SURGICAL PATHOLOGY REPORT STANDARD TITLE: PATHOLOGY REPORT DATE OF NOTE: OCT 21, 2021@14:36:45 ENTRY DATE: OCT 21, 2021@14:36:45 AUTHOR: MIGUELITO HEWITT EXP COSIGNER: URGENCY: STATUS: COMPLETED $APHDR Reporting Lab: [facility] [CLIA# [id number]] [place] [address] - - - - - - - [...] Submitted are 4 slides receiv ed from [facility]. After review the material is returned to: [facility] [address] [place] Division [place] [address] MICROSCOPIC DESCRIPTION: Microscopic examination performed. BB DIAGNOSIS [...] Performing Laboratory: Surgical Pathology Report Performed By: [facility] [CLIA# [id number]] [place] [address] $FTR - - - - - - [...] - - ANDER LOCKWOOD STANDARD FORM 515 ID:[id number] SEX:M :1945 AGE: 76 LOC: 65210 PCP: Liam Mejia MD /shalonda/ MIGUELITO HEWITT MD STAFF PATHOLOGIST Signed: 10/21/2021 14:36 Encounter Notes: All associated encounter notes This section contains the clinical notes associated to the Encounter. Date/Time Encounter Note(s) Provider Source Oct 27, 2021 08:53 AM HEMATOLOGY AND ONCOLOGY NURSING OUTPAT IENT NOTE: JODY SIFUENTES [facility] LOCAL TITLE: HEME/ONC BLOOD DRAW CLINIC NURSING NOTE STANDARD TITLE: HEMATOLOGY AND ONCOLOGY NURSING OUTPATIENT NOTE DATE OF NOTE: OCT 27, 2021@08:53 ENTRY DATE: OCT 27, 2021@08:53:23 AUTHOR: JODY SIFUENTES EXP COSIGNER: URGENCY: STATUS: COMPLETED Date of Service:Oct Diagnosis: Procedure: blood collection through venous acces s device Venous Access Device Care: Type: Portacath 3/4 20g Power Mcdermott Needle Blood return: Site: normal Labs drawn: Yes Flushes: normal saline, heparin 500 units Status: remains accessed Discharge to: Other: radiology Patient was notified they need their por t flushed in 30-60 days and to make an appt with the [facility] or at their own provider. /shalonda/ JODY SIFUENTES LPN LICENSED PRACTICAL NURSE Signed: 10/27/2021 08:55
--- OUTSIDE RECORDS SUMMARY | 2021-11-18 09:33 | XMS_ITS | Encounter Summary ---
:1945 Author Organization [facility] Address [address] [place] [address] Support Name Relationship Address Phone SILKE LOCKWOOD Unavailable [id number] [place] [address] SILKE LOCKWOOD Unavailable [id number] [place] [address] Insurance Providers: All historical and current Section [...] Victor [place] Jun 10, [id number] [facility]IE [facility]WNR) 2020 8 [id number] [phone] ,ANDER Bennett [place] Jun 10, [id number] [address] P ATIENT [facility] (WNR) ADVANTAGE (WNR) 2018 3 [id number] [phone] ,ANDER Bennett Selected Encounter This section includes the information on record at [place] for the Encounter. Date/Time Encounter Type Encounter Description Reason Provider Source Nov 08, 2021 11:05 Outpatient Encounter PRIMARY CARE/MEDICINE AM IHE Encounter [...] 20 appointments. The data comes from all [facility]. Appointment Date/Time Appointment Type Appointment Facili ty Name Nov 15, 2021 10:00 AM AMBULATORY - NONE [facility] Nov 17, 2021 10:00 AM AMBULATORY - SURGERY [facility] Dec 15, 2021 04:00 PM AMBULATORY - MEDICINE [facility] CS Active, Pending, and Scheduled Orders This section includes a listing of several types of active, pending, and scheduled orders, including clinic medications orders, diagnostic test orders, procedure orders and consult orders; where the start date of the order is 45 days before the date of the Encounter or 45 days after the date of the Encounter. The data comes from all [place] treatment [facility]. Test Date/Time Test Type Test Details Facility Name Oct 14, 2021 10:49 AM Consult Order [facility] CARE-RADIATION THERAPY Cons Clinical Nurse Educator's Choice Nov 17, 2021 10:20 AM Imaging - Magnetic MRI-BRAIN (P) [facility] Resonance Imaging (MRI) Order Lab [...] Range Comment Oct 27, 2021 09:00 [facility] FINGERSTICK GLUCOSE Speci men Type: BLOOD AM Comment: Apolonia hamilton Ordering Provid er: LIAM MEJIA Report Released Date/Time: Oct 27, 2021 01:25 PM Reporting Lab: [facility] [address] [facility] [address] Performing Lab: [facility] [address] [facility] [address] FINGERSTICK GLUCOSE 109 H 70-100 Oct 27, 2021 [facility] COMPREHENSIVE METABOLIC Spec imen Type: PLASMA 08:53 AM PANEL+MG No comment enter ed. Ordering Provid er: DENG LOUISE Report Released Date/Time: Oct 14, 2021 10:46 AM Reporting Lab: [facility] [address] [facility] DRI [address] [facility] [address] Performing Lab: [facility] DRI [facility] [address] CREATININE 1.0 0.7-1.2 UREA NITROGEN 23 8-26 [...] >60 Oct 27, 2021 08:[address] [facility] CBC & DIFF Specim en Type: BLOOD Comment: Automa kerrie Differential Performed Ordering Provid er: DENG LOUISE Report Released Date/Time: Oct 14, 2021 10:46 AM Reporting Lab: [facility] [address] Performing Lab: [facility] [address] WBC 10.67 4.0-11.0 RBC 3.73 L 4.6-6.2 [...] tobacco-related health factors from the [facility] where the Encounter took place.Current Smoking Status This section includes the most current smoking, or tobacco-related health factor, from the [facility] where the Encounter took place. [...] VA-TOBACCO QUIT [address] [facility] Jul 05, 2020 06:42 PM VA-TOBACCO FORMER USER MIN [facility] Jan 09, 2018 02:01 PM VA-TOBACCO FORMER USER MIN [facility] Jan 09, 2018 02:01 PM VA-TOBACCO QUIT 5 TO < [address] [facility] Apr 16, 2017 10:17 AM FORMER TOBACCO USER 7Y OR GREATER [facility] Jun 09, 2016 10:03 AM FORMER TOBACCO USER 7Y OR GREATER [facility] May 06, 2015 08:19 AM FORMER TOBACCO USER 7Y OR GRE[address] [facility] Advance Directives: All historical and [...] The data comes from all [facility]. Date Advance Directives Provider Source July 24, 2021 ADVANCE DIRECTIVE DISCUSSION PAPA LEWIS [facility] July 24, [address]APA LEWIS [facility] Radiology Reports: +/- 30 days [...] 08:[address] BODY WITH CONTRAST: COSTANINAJANETTANITHA [facility] ANDER LOCKWOOD RED [id number] -[birth year] 24, [birth year] 7 M Exm Date: OCT 27, 2021@08:53 Req Phys: DENG LOUISE Pat Loc: [facility] HEM ONC PHONE DANI (Req'g Img Loc: NUC MED Service: Unknown (Case 1909 COMPLETE) PET IMAGE W/CT SKULL-THIGH (NM Detailed) CPT:37612 Reason for Study: pt with non-small cell lung c ancer, also has follicular lymphom; (Case 1910 COMPLETE) F-18 FDG (NM Detailed) CPT: A9552 Clinical History: IS NOT under investigation for COVID-19 or is COVID-19 negative pt with non-small cell lung cancer, also has fo llicular lymphom; now with brain met (resected at [place] )- please eval disease status Responsible provider name a nd phone number to notify for critical findings if other than user placing the order and pager listed below: User placing orders pag er: [phone] LAST CREATININE 1.2 (09/15/21) Report Status: Verified Date Reported: OCT 27, 2021 Date Verified: OCT 27, 2021 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 Now with brain metastases, resected at [place] 10/07/2021. These evaluate for disease status. COMPARISON: [...] MD, RADIOLOGY STAFF PHYSICIAN (V erifier) /LILLIAN Pathology Reports: +/- 30 days of [...] LR SURGICAL PATHOLOGY REPORT: MIGUELITO HEWITT [facility] PM LOCAL TITLE: LR SURGICAL PATHOLOGY REPORT STANDARD TITLE: PATHOLOGY REPORT DATE OF NOTE: OCT 21, 2021@14:36:45 ENTRY DATE: OCT 21, 2021@14:36:45 AUTHOR: MIGUELITO HEWITT EXP COSIGNER: URGENCY: STATUS: COMPLETED $APHDR Reporting Lab: [facility] [CLIA# [id number]] [place] [address] - - - - - - - [...] 2021 13:21): REVIEW 4 OUTSIDE SLIDES LABELED: [id number] - - - - - - - [...] are 4 slides receiv ed from [facility]. After review the material is returned to: [facility] [address] [place] Division [place] [address] MICROSCOPIC DESCRIPTION: Microscopic examination performed. BB DIAGNOSIS [...] Laboratory: Surgical Pathology Report Performed By: [facility] [CLIA# [id number]] [place] [address] $FTR - - - - - - - - - - - - - - - - - - - - - - - - - - - - - - - - - - - - - - - - (End of report) MIGUELITO HEWITT MD [facility] Date Oct 21, 2021 - - - - - - - - - - - - - - - - - - - - - - - - - - - - - - - - - - - - - - - - ANDER LOCKWOOD STANDARD FORM 515 ID:[id number] SEX:M :1945 AGE: 76 LOC: 53041 PCP: Liam Mejia MD /shalonda/ MIGUELITO HEWITT MD STAFF PATHOLOGIST Signed: 10/21/2021 14:36 Encounter Notes: All associated encounter notes This section contains the clinical notes associated to the Encounter. Date/Time Encounter Note(s) Provider Source Nov 08, 2021 11:05 AM HOME HEALTH REFERRAL NOTE: ARELY HU [facility] LOCAL TITLE: [facility] HOME HEALTH CARE STANDARD TITLE: HOME HEALTH REFERRAL NOTE DATE OF NOTE: NOV 08, 2021@11:05 ENTRY DATE: NOV 08, 2021@11:05:45 AUTHOR: ARELY HU EXP COSIGNER: URGENCY: STATUS: COMPLETED HOME HEALTH CARE CERTIFICATION AND PLAN OF CARE SIGNED BY: Dr. dr mejia [facility] care [facility] Certification period From: [id number] To: [id number] /shalonda/ ARELY HU LEAD PROCESSOR HELPER Signed: 11/08/2021 11:06
--- OUTSIDE RECORDS SUMMARY | 2021-11-18 09:33 | XMS_ITS | Encounter Summary ---
:1945 Author Organization [facility] rs Address [address] [place] [id number] Support Name Relationship Address Phone SILKE LOCKWOOD Unavailable [id number] [address] SILKE LOCKWOOD Unavailable [id number] [address] Insurance Providers: All historical and current Section [...] Victor [place] MEDICARE MCR Jun 10, [id number] MANDIE P ATIENT [facility] (WNR) ADVANTAGE (WNR) 2019 8 [id number] [phone] ,ANDER Bennett [place] MED[place] Jun 10, [id number] ASHLEYTROM P ATIENT [facility] (WNR) ADVANTAGE (WNR) 2018 3 [id number] [phone] ,ANDER Bennett Selected Encounter This section includes the information on record at [place] for the Encounter. Date/Time Encounter Type Encounter Reason Provider Source Description Nov 02, 2021 OFFICE O/P EST ONCOLOGY/TUMOR ICD-10-CM DENG LOUISE 09:00 AM HI 40-54 MIN C34.31 K Malignant neoplasm of lower lobe, right bronchus or lung with Provider Comments: Malignant neoplasm of lower lobe of right lung (SCT [id number]) IHE Encounter Template Text not used by [place] Assessments - Encounter Diagnoses This section includes the primary and secondary diagnoses documented for the Encounter. Date/Time Primary/Secondary Diagnosis Name Provider Source Diagnosis Nov 02, 2021 PRIMARY Malignant DENG LOUISE V A 10:53 AM neoplasm of lower [facility] lobe, right bronchus or lung Nov 02, 2021 SECONDARY Allergy status to DENG LOUISE [facility] 10:53 AM other [facility] drug/meds/biol subst Nov 02, 2021 SECONDARY Follicular DENG LOUISE V A 10:53 AM lymphoma, Rajiv [facility] unspecified, unspecified site Nov 02, 2021 SECONDARY Malignant DENG LOUISE V A 10:53 AM neoplasm of Rajiv [facility] brain, unspecified Nov 02, 2021 SECONDARY Secondary and DENG LOUISE [place] 10:53 AM unsp malignant Rajiv [facility] neoplasm of intrathorac nodes Plan of Treatment: Future Appointments (+ 6 months) and Future Tests (+/- 45 days) The Plan of Treatment section includes future care activities for the patient [facility] [place] [facility] This section includes future appointments and future orders which are active, pending orscheduled.Future Appointments This section includes appointments that were scheduled to occur 6 months from the date of the Encounter, up to a maximum of 20 appointments. The data comes from all [place] treatment facilities. Appointment Date/Time Appointment Type Appointment Facili ty Name Nov 15, 2021 10:00 AM AMBULATORY - NONE [facility] Nov 17, 2021 10:00 AM AMBULATORY - SURGERY [facility] S Dec 15, 2021 04:00 PM AMBULATORY - MEDICINE [facility] CS Active, Pending, and Scheduled Orders This section includes a listing of several types of active, pending, and scheduled orders, including clinic medications orders, diagnostic test orders, procedure orders and consult orders; where the start date of the order is 45 days before the date of the Encounter or 45 days after the date of the Encounter. The data comes from all [place] treatment [facility]. Test Date/Time Test Type Test Details Facility Name Oct 14, 2021 10:49 AM Consult Order [facility] CARE-RADIATION THERAPY Cons Car Wash Manager's Choice Nov 17, 2021 10:20 AM Imaging - Magnetic [facility] Resonance Imaging (MRI) Order Lab Results: +/- 30 days of the encounter This section includes the Chemistry and Hematology Lab Results on record with [place] for the patient. Radiology Reports and Pathology Reports are provided separately, in subsequent sections.Lab Results This section contains the Chemistry/Hematology Results that were resulted 30 days before or 30 daysafter the date of the Encounter. Date/Time Source Result Type Result - Unit Interpretation Reference Range Comment Oct 27, 2021 09:00 [facility] FINGERSTICK GLUCOSE Speci men Type: BLOOD AM Comment: Apolonia hamilton Ordering Provid er: LIAM MEJIA Report Released Date/Time: Oct 27, 2021 01:25 PM Reporting Lab: [facility] [id number] Performing Lab: [facility] [address] [address] FINGERSTICK GLUCOSE 109 H 70-100 Oct 27, 2021 [facility] COMPREHENSIVE METABOLIC Spec imen Type: PLASMA 08:53 AM PANEL+MG No comment enter ed. Ordering Provid er: DENG LOUISE Report Released Date/Time: Oct 14, 2021 10:46 AM Reporting Lab: [facility] [address] [facility] [address] Performing Lab: [facility] [address] CREATININE 1.0 0.7-1.2 UREA NITROGEN 23 8-26 [...] 78 >60 Oct 27, 2021 08:53 AM [facility] CBC & DIFF Specim en Type: BLOOD Comment: Automa kerrie Differential Performed Ordering Provid er: DENG LOUISE Report Released Date/Time: Oct 14, 2021 10:46 AM Reporting Lab: [facility] [id number] Performing Lab: [facility] [address] WBC 10.67 4.0-11.0 RBC 3.73 L 4.6-6.2 [...] IG(META,MYELO,PRO) 0.6 ABS IMMATURE GRAN 0.06 0-0.1 Vital Signs: All taken on the encounter date This section contains inpatient and outpatient Vital Signs collected on the date of the Encounter. Date/Time Temperature Pulse Blood Respiratory SP02 Pain Height Weight Arslan dy Source Pressure Rate Mass Index Nov 02, 113/76 [facility] 2021 09:05 mm[Hg] [facility] Nov 02, 97.4 F 81 146/75 16 /min 98 % 0 180.7 28 [facility] 2021 09:03 /min mm[Hg] lb [facility] Social History: Smoking Status (Most current) and Tobacco Use (All prior to encounter date) This section includes the most current, and the historical, smoking and tobacco-related health factors from the [place] facility where the Encounter took place.Current Smoking Status This section includes the most current smoking, or tobacco-related health factor, from the [place] facility where the Encounter took place. Date/Time Current Smoking Status Comment Facility May 26, 2021 03:30 PM VA-TOBACCO FORMER USER [facility] Tobacco Use History This section includes a history of the smoking, or tobacco- related health factors, that were collected on or before the date of the Encounter. The data comes from the [place] facility where the Encounter took place. Date/Time Smoking Status/Tobacco Use Comment Facil it May 26, 2021 03:30 PM VA-TOBACCO QUIT 15 YRS OR MORE [facility] Jul 05, 2020 06:42 PM VA-TOBACCO FORMER USER [facility] Jan 09, 2018 02:01 PM VA-TOBACCO FORMER USER [facility] Jan 09, 2018 02:01 PM VA-TOBACCO [...] ALL of a patient's completed or amended [place] Advance and Rescinded Directives. The entries below indicate that a directive exists for the patient, but an actual copy is not included with this document. The data comes from all [place] facilities. Date Advance Directives Provider Source July [...] the Encounter. The data comes from all [place] treatment facilities. Date/Time Radiology Report Provider Source Oct 27, 2021 08:[address] BODY WITH CONTRAST: ELENA MORRIS [facility] ANDER LOCKWOOD [id number] -AUG [id number] [phone] [id number] M Exm Date: OCT 27, 2021@08:53 Req Phys: DENG LOUISE Pat Loc: [facility] HEM ONC PHONE DANI (Req'g Img Loc: [facility] MED Service: Unknown (Case [id number] COMPLETE) PET IMAGE W/CT SKULL-THIGH (NM Detailed) CPT:75540 Reason for Study: pt with non-small cell lung c ancer, also has follicular lymphom; (Case 1910 COMPLETE) F-18 FDG (NM Detailed) CPT: A9552 Clinical History: [place] IS NOT under investigation for COVID-19 or is COVID-19 negative pt with non-small cell lung cancer, also has fo llicular lymphom; now with brain met (resected at [facility] )- please eval disease status Responsible provider name a nd phone number to notify for critical findings if other than user placing the order and pager listed below: User placing orders pag er: [phone] LAST CREATININE 1.2 (09/15/21) Report Status: Verified Date Reported: OCT 27, 2021 Date Verified: OCT 27, 2021 Compliance Nurse E-Sig:/ES/ELENA MORRIS MD Report: PET/CT SCAN INDICATION: Patient with non-small cell lung ca ncer, also has follicular lymphoma. Now with brain metastases, resected at [facility] 10/07/2021. These evaluate for disease status. COMPARISON: [...] the Encounter. The data comes from all [place] treatment facilities. Date/Time Pathology Report Provider Source Oct 21, 2021 02:36 LR SURGICAL PATHOLOGY REPORT: MIGUELITO HEWITT [facility] PM LOCAL TITLE: LR SURGICAL PATHOLOGY REPORT STANDARD TITLE: PATHOLOGY REPORT DATE OF NOTE: OCT 21, 2021@14:36:45 ENTRY DATE: OCT 21, 2021@14:36:45 AUTHOR: MIGUELITO HEWITT EXP COSIGNER: URGENCY: STATUS: COMPLETED $APHDR Reporting Lab: [facility] [CLIA# [id number]] [place] [address] - - - - - - - [...] - - - - $TEXT Submitted by: SCOTTY/COMPA Date obtained: Oct 21 - - - - - - - [...] Submitted are 4 slides receiv ed from [facility]. After review the material is returned to: [facility] [address] [place] Division [place] [address] MICROSCOPIC DESCRIPTION: Microscopic examination performed. BB DIAGNOSIS [...] Performing Laboratory: Surgical Pathology Report Performed By: [facility] [CLIA# [id number]] [place] [address] $FTR - - - - - - [...] - - ANDER LOCKWOOD STANDARD FORM 515 ID:[id number] SEX:M :1945 AGE: 76 LOC: [id number] PCP: Liam Mejia MD /shalonda/ MIGUELITO HEWITT MD STAFF PATHOLOGIST Signed: 10/21/2021 14:36 Encounter Notes: All associated encounter notes This section contains the clinical notes associated to the Encounter. Date/Time Encounter Note(s) Provider Source Nov 02, 2021 09:04 AM INTERNAL MEDICINE OUTPATIENT NOTE: KRZYSZTOF SANCHEZ [facility] LOCAL TITLE: MEDICINE CLINIC NURSING NOTE STANDARD TITLE: INTERNAL MEDICINE OUTPATIENT NOT E DATE OF NOTE: NOV 02, 2021@09:04 ENTRY DATE: NOV 02, 2021@09:04:24 AUTHOR: JAZMINE SANCHEZ EXP COSIGNER: URGENCY: STATUS: COMPLETED TYPE OF VISIT: Appointment Check In Type of appointment: In-person appointment REASON FOR VISIT: rtcc ALLERGIES: Patient has answered NKA VITAL SIGNS: Blood Pressure: 146/75 (11/02/2021 09:03) Pulse: 81 (11/02/2021 09:03) Respiration: 16 (11/02/2021 09:03) Temperature: 97.4 F [36.3 C] (11/02/2021 09:03) Weight: 180.7 lb [81.96 kg] (11/02/2021 09:03) Height: 68 in [172.7 cm] (11/12/2020 10:17) BMI: 27.5 O2 Sat: 98% (11/02/2021 09:03) Pain: 0 (11/02/2021 09:03) BP recheck: 113/76 PAIN SCREEN: Patient is not having significant pain that the y wish to discuss with their provider today. MEDICATION Over the Counter/Herbal Medications: The patient states that they take some outside medications and/or herbals. 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 (2) Follicular lymphoma, Stage IV -S/p R-CVP & maintenance rituximab (3) Suspected RCC Here today for followup along with his w jessy. Consult was placed to Rad/Onc for XRT after brain met resection- pt/ note that [facility] appt is coming up soon. Interval history: Mr. Lockwood is doing pretty well- cont inues to recover nicely from brain met resection. Stamina improving every day, walking better. Speech improving, thinking more clearly again. Did go to ER last week when he was having some pain/pressure in head and had CT head that looked okay. Was on a short course of steroids, just finished this. Denies fevers, chills, drenching nightsweats, ad enopathy. No bleeding or infectious sxs. Breathing seems fine. No chest p ain, palps, syncope. No GI sxs/changes, abd pain/pressure. No urinary sxs. No new neuro sxs/changes. No visual changes. No rash or LE edema. No other changes in ROS. HEM/ONC HISTORY (copied/updated) - Stage 4 follicular [...] completely asymptomati c. - 10/04/2021 brain MRI ([facility]): 4.2 x 2.9 x 3.6 cm (AP x TV x CC) peripherally enhancing, centrally necrotic and diffusion rest ricting left frontal lobe mass with increased intralesional rCBV and surro unding vasogenic edema with 8 mm of rightward midline shift, subfalcine hernia tion, and generalized left frontal lobe sulcal effacement. - 10/04/21 CT CAP ([facility]): ill-defined hazy mesent teddy in the central abdomen with few mildly enlarged lymph nodes or soft tis brian nodules. Indeterminate mildy enlarged left iliac lymph node. Indetermin ate 7 mm sclerotic lesion in the right iliac bone. No findings of malignancy in the chest. - 10/07/2021 Pt underwent surgical resection of b rain mass and post-op MRI showed gross total resection. Surgical path showed: >Brain, left frontal lesion, biopsy: involved b y metastatic adenocarcinoma with mucinous features, compatible with patient 's known lung primary. >Immunostains were performed on the block: -Keratin AE1/AE3: positive -Keratin 7: positive -TTF 1: negative -P 40: negative -S100 protein and SOX10: both negative -CDX2: negative - 10/27/21 PET Impression: 1. FDG uptake associated with mesenteric, peric aval and left pelvic lymph nodes as described above. This may be related to patient's low-grade lymphoma, or inflammatory i n etiology, or combination of both. Metastatic disease seems t o be less likely. 2. Please see full report for details and addit ional findings. Meds reviewed Allergies reviewed: Patient has answered NKA Nursing note/vitals reviewed EXAM: Gen: appears okay, NAD HEENT: sclerae clear Lymph: few [address] noted in anterior cervical ch ains and supraclavicular regions; no axillary LNs appreciated Pulm: nl resp effort, CTA bilat CV: RRR without m/r/g Abd: soft, NT, ND, bs+, no HSM/masses noted Neuro: alert, conversant Skin: warm/dry, no rash LAB/IMAGING DATA: reviewed Specimen Collection Date: Oct 27, 2021@08:53 CREAT EGFR(CKD-EPI) 78 Ref: >=60 [618] SODIUM 141 mmol/L 136 - 145 [618] POTASSIUM 4.1 mmol/L 3.5 - 5.1 [618] CHLORIDE 109 H mmol/L 98 - 107 [618] CO2 24 mmol/L 22 - 29 [618] ANION GAP 8 mmol/L 5 - 15 [618] GLUCOSE 115 H mg/dL 70 - 100 [618] UREA NITROGEN 23 mg/dL 8 - 26 [618] CREATININE 1.0 mg/dL 0.7 - 1.2 [618] PROTEIN,TOTAL 6.0 g/dL 6.0 - 8.3 [618] ALBUMIN 3.4 L g/dL 3.5 - 5.2 [618] CALCIUM 8.8 mg/dL 8.4 - 10.2 [618] MAGNESIUM 1.9 mg/dL 1.6 - 2.6 [618] BILIRUBIN, TOTAL 0.3 mg/dL 0.2 - 1.2 [618] ALKALINE PHOSPHATASE 66 U/L 40 - 150 [618] AST/SGOT 10 U/L Ref: <=34 [618] ALT/SGPT 26 U/L Ref: <=55 [618] WBC 10.67 K/cmm 4.0 - 11.0 [618] RBC 3.73 L M/cmm 4.6 - 6.2 [618] HGB 11.4 L g/dL 13.5 - 17.9 [618] HCT 34.7 L % 41 - 54 [618] MCV 93.0 fL 80 - 100 [618] MCH 30.6 pg 27 - 33 [618] MCHC 32.9 g/dL 32.0 - 37.5 [618] RDW 14.4 % 11.5 - 14.5 [618] PLT 212 K/cmm 150 - 400 [618] MPV 8.5 fL 7.4 - 10.4 [618] NEUT 87.9 % [618] LYMPHS 8.1 % [618] MONO 3.3 % [618] BASO 0.1 % [618] IG(META,MYELO,PRO) 0.6 % [618] ABS NEUT 9.39 H K/cmm 2.0 - 7.7 [618] ABS LYMPH 0.86 L K/cmm 1.0 - 4.0 [618] ABS MONO 0.35 K/cmm 0.1 - 1.0 [618] ABS BASO 0.01 K/cmm 0 - 0.2 [618] ABS IMMATURE GRAN 0.06 K/UL 0 - 0.1 [618] PET 10/27/2021: Impression: 1. FDG uptake associated with mesenteric, peric aval and left pelvic lymph nodes as described above. This may be related to patient's low-grade lymphoma, or inflammatory i n etiology, or combination of both. Metastatic disease seems t o be less likely. 2. Please see full report for details and addit ional findings. Performance status: ECOG 0-1 ASSESSMENT/PLAN: Mr. Lockwood is a pleasant 76 yr old male with lung adenocarcinoma IIb s/p resection and adjuvant chemotherapy on o bservation; follicular lymphoma s/p prior treatment on observation; and suspected RCC on observation. # Lung adenocarcinoma, initially stage 2B: s/p R LL wedge resection 01/2020 followed by adjuvant chemoth erapy with Cisplatin/Pemetrexed, s/p 3 cycles, then developed pneumonitis, possi soha related to Pemetrexed. He mostly recovered from pneumonitis, then on surveillance. Has RUL spiculated lesion that has been monitore d, has not been amenable for biopsy; had increased by ~2 mm on scans from 05/11 [address] 09/2021. Two small 3 mm R lung base on 09/2021 scans as we ll. Pt found to have brain mass 09/2021 after having confusion, difficulty with speech, s/p resection at [facility] 10/07/21, p ath c/w metastatic adenocarcinoma with mucinous features, c/w known lung primary. He did had CT CAP 10/04/21, report stated no e/o malignancy in chest; interdeterminate 7 mm sclerotic lesion R iliac b one and few mildly enlarged LNs or soft tissue nodules in abd. Path slides/block from [facility] requested for review and testing for molecular mutation (in house lung panel). Rad/Onc consult placed, was referred to [facility] and is pending. Pt doing well otherwise, recovering nicely- PET scan 10/27/21 without e/o metastatic disease, mild uptake in LNs more likely related to low-grade lymphoma or inflammatory. -Continue with Rad/Onc consult and adjuvant radi ation to site of brain met resection. -Will plan for close surveillance, RTC [address] CAP and MRI brain. # Stage IV follicular lymphoma s/p 6 cycles R-CVP completed 07/2016. Then comple kerrie 12 cycles of maintenance Rituximab (q 2 months x 2 yrs) in 05/2018, tolera kerrie very well. Overall his follicular lymphoma has since remained stable th ough he has had areas of progression and areas of spontaneous decrease. No concerns, will continue to monitor. # Suspected pemetrexed pneumonitis Admitted 07/05-07/15/20 with [...] sxs worsen 60 min spent on appt, chart review, H&P, review of labs, imaging, discussion about prognosis of disease and plan for surveill ance moving fwd + EHR documentation. Pt has care [facility] Dr. Sanford who also met with pat soraida and today /shalonda/ DENG LOUISE, PAC PHYSICIAN [employer] Signed: 11/02/2021 10:53
--- OUTSIDE RECORDS SUMMARY | 2021-11-18 09:34 | XMS_ITS | Encounter Summary ---
:1945 Author Organization [facility] rs Address [address] [place] [address] Support Name Relationship Address Phone SILKE LOCKWOOD Unavailable [id number] [address] SILKE LOCKWOOD Unavailable [id number] [address] Insurance Providers: All historical and current Section [...] Victor [place] Jun 10, [id number] M[address] P ATIENT [facility] (WNR) ADVANTAGE (WNR) 2019 [id number] [phone] ,ANDER Bennett [place] Jun 10, [id number] ASHLEYTROM P ATIENT [facility] (WNR) ADVANTAGE (WNR) 2018 3 [id number] [phone] ,ANDER Bennett Selected Encounter This section includes the information on record at OR for the Encounter. Date/Time Encounter Type Encounter Reason Provider Source Description Nov 17, 2021 OFFICE O/P EST NEUROSURGERY ICD-10-CM SUGGS,BLAISE 10:00 AM MOD 30-39 MIN C79.31 Secondary malignant neoplasm of brain with Provider Comments: Secondary Malignant Neoplasm of Brain IHE Encounter Template Text not used by OR Assessments - Encounter Diagnoses This section includes the primary and secondary diagnoses documented for the Encounter. Date/Time Primary/Secondary Diagnosis Name Provider Source Diagnosis Nov 17, 2021 PRIMARY Secondary DRAKE HEARN V A 10:30 AM malignant J HCS neoplasm of brain Plan of Treatment: Future Appointments (+ 6 months) and Future Tests (+/- 45 days) The Plan of Treatment section includes future care activities for the patient from all OR treatmentfacilities. This section includes future appointments and future orders which are active, pending orscheduled.Future Appointments This section includes appointments that were scheduled to occur 6 months from the date of the Encounter, up to a maximum of 20 appointments. The data comes from all [place] treatment facilities. Appointment Date/Time Appointment Type Appointment Facili ty Name Dec 15, 2021 04:00 PM AMBULATORY - MEDICINE [facility] CS Active, Pending, and Scheduled Orders This section includes a listing of several types of active, pending, and scheduled orders, including clinic medications orders, diagnostic test orders, procedure orders and consult orders; where the start date of the order is 45 days before the date of the Encounter or 45 days after the date of the Encounter. The data comes from all [place] treatment facilities. Test Date/Time Test Type Test Details Facility Name Oct 14, 2021 10:49 AM Consult Order [facility] CARE-RADIATION THERAPY Cons Fish Roe Processor's Choice Nov 17, 2021 10:20 AM Imaging - Magnetic MRI-BRAIN (P) [facility] Resonance Imaging (MRI) Order Lab Results: +/- 30 days of the encounter This section includes the Chemistry and Hematology Lab Results on record with OR for the patient. Radiology Reports and Pathology Reports are provided separately, in subsequent sections.Lab Results This section contains the Chemistry/Hematology Results that were resulted 30 days before or 30 daysafter the date of the Encounter. Date/Time Source Result Type Result - Unit Interpretation Reference Range Comment Oct 27, 2021 09:00 [facility] FINGERSTICK GLUCOSE Speci men Type: BLOOD AM Comment: Apolonia hamilton Ordering Provid er: MAKAYLA MEJIA Report Released Date/Time: Oct 27, 2021 01:25 PM Reporting Lab: [facility] [id number] Performing Lab: [facility] [address] FINGERSTICK GLUCOSE 109 H 70-100 Oct 27, 2021 [facility] COMPREHENSIVE METABOLIC Spec imen Type: PLASMA 08:53 AM PANEL+MG No comment enter ed. Ordering Provid er: DENG LOUISE Report Released Date/Time: Oct 14, 2021 10:46 AM Reporting Lab: [facility] [id number] Performing Lab: [facility] [address] CREATININE 1.0 0.7-1.2 UREA NITROGEN 23 8-26 [...] 78 >60 Oct 27, 2021 08:53 AM [facility] CBC & DIFF Specim en Type: BLOOD Comment: Automa kerrie Differential Performed Ordering Provid er: DENG LOUISE Report Released Date/Time: Oct 14, 2021 10:46 AM Reporting Lab: [facility] [id number] Performing Lab: [facility] [address] WBC 10.67 4.0-11.0 RBC 3.73 L 4.6-6.2 [...] smoking and tobacco-related health factors from the OR facility where the Encounter took place.Current Smoking Status This section includes the most current smoking, or tobacco-related health factor, from the [place] facility where the Encounter took place. Date/Time Current Smoking Status Comment Facility May 26, 2021 03:30 PM VA-TOBACCO FORMER USER [facility] Tobacco Use History This section includes a history of the smoking, or tobacco- related health factors, that were collected on or before the date of the Encounter. The data comes from the [place] facility where the Encounter took place. Date/Time Smoking Status/Tobacco Use Comment Facil it May 26, 2021 03:30 PM VA-TOBACCO QUIT 15 YRS OR MORE [facility] Jul 05, 2020 06:42 PM VA-TOBACCO FORMER USER [facility] Jan 09, 2018 02:01 PM VA-TOBACCO FORMER USER [facility] Jan 09, 2018 02:01 PM VA-TOBACCO QUIT 5 TO < 15 YRS [facility] Apr 16, 2017 10:17 AM FORMER TOBACCO USER 7Y OR GREATER [facility] Jun 09, 2016 10:03 AM FORMER TOBACCO USER 7Y OR GREATER [facility] May 06, 2015 08:19 AM FORMER TOBACCO USER 7Y OR GREATER [facility] Advance Directives: All historical and current Section Date Range: From patient's date of to the date document was created. This section includes ALL of a patient's completed or amended OR Advance and Rescinded Directives. The entries below indicate that a directive exists for the patient, but an actual copy is not included with this document. The data comes from all [facility]. Date Advance Directives Provider Source July 24, 2021 ADVANCE DIRECTIVE PAPA LEWIS [facility] July 24, 2021 ADVANCE DIRECTIVE DISCUSSION PAPA LEWIS [facility] Radiology Reports: +/- 30 days [...] the Encounter. The data comes from all [place] treatment facilities. Date/Time Radiology Report Provider Source Oct 27, 2021 08:[address] BODY WITH CONTRAST: ELENA MORRIS [facility] ANDER LOCKWOOD [id number] -[birth year] 24, [birth year] 7 M Exm Date: OCT 27, 2021@08:53 Req Phys: DENG LOUISE Loc: [facility]SP HEM ONC PHONE DANI (Req'g Img Loc: NUC MED Service: Unknown (Case 1909 COMPLETE) PET IMAGE W/CT SKULL-THIGH (NM Detailed) CPT:49195 Reason for Study: pt with non-small cell lung c ancer, also has follicular lymphom; (Case 1910 COMPLETE) F-18 FDG (NM Detailed) CPT: A9552 Clinical History: [place] IS NOT under investigation for COVID-19 or is COVID-19 negative pt with non-small cell lung cancer, also has fo llicular lymphom; now with brain met (resected at [facility] )- please eval disease status Responsible provider name a nd phone number to notify for critical findings if other than user placing the order and pager listed below: User placing orders pag er: [phone] LAST CREATININE 1.2 (09/15/21) Report Status: Verified Date Reported: OCT 27, 2021 Date Verified: OCT 27, 2021 Bank Guard E-Sig:/ES/ELENA MORRIS MD Report: PET/CT SCAN INDICATION: Patient with non-small cell lung ca ncer, also has follicular lymphoma. Now with brain metastases, resected at [facility] 10/07/2021. These evaluate for disease status. COMPARISON: [...] note that patient had a dedicated CT [facility] on 09/15/2021 for detailed description of [...] the Encounter. The data comes from all [place] treatment facilities. Date/Time Pathology Report Provider Source Oct 21, 2021 02:36 LR SURGICAL PATHOLOGY REPORT: MIGUELITO HEWITT [facility] LOCAL TITLE: LR SURGICAL PATHOLOGY REPORT STANDARD TITLE: PATHOLOGY REPORT DATE OF NOTE: OCT 21, 2021@14:36:45 ENTRY DATE: OCT 21, 2021@14:36:45 AUTHOR: MIGUELITO HEWITT EXP COSIGNER: URGENCY: STATUS: COMPLETED $APHDR Reporting Lab: [facility] [CLIA# [id number]] [place] [address] - - - - - - - [...] 4 slides receiv ed from [facility]. After review the material is returned to: [facility] [address] [place] Division [place] [address] MICROSCOPIC DESCRIPTION: Microscopic examination performed. BB DIAGNOSIS [...] Performing Laboratory: Surgical Pathology Report Performed By: [facility] [CLIA# [id number]] [place] [address] $FTR - - - - - - [...] - - ANDER LOCKWOOD STANDARD FORM 515 ID:[id number] SEX:M :1945 AGE: 76 LOC: [id number] PCP: Makayla Mejia MD /shalonda/ MIGUELITO HEWITT MD STAFF PATHOLOGIST Signed: 10/21/2021 14:36 Encounter Notes: All associated encounter notes This section contains the clinical notes associated to the Encounter. Date/Time Encounter Note(s) Provider Source Nov 17, 2021 10:23 AM NEUROSURGERY CONSULT: DRAKE HEARN [facility] LOCAL TITLE: NEUROSURGERY CONSULT STANDARD TITLE: NEUROSURGERY CONSULT DATE OF NOTE: NOV 17, 2021@10:23 ENTRY DATE: NOV 17, 2021@10:23:11 AUTHOR: DRAKE HEARN EXP COSIGNER: URGENCY: STATUS: COMPLETED Neurosurgery consult CC: Follow-up on recent tumor resection HPI: Mr. Lockwood is a 76 year old man who unde rwent resection of metastatic lesion to the brain at [facility] in September 2021. Surgery went well. [facility] Post-op images were done a t OSH and reportedly looked reassuring. Patient has no active symptoms as of now. He is scheduled to have radiation done soon and is planned for new brain scans. Exam: Awake, alert, oriented x3 Cranial nerves intact no pronator drift Strength: 5/5 in upper and lower extremities Incision healing well. few dissolvable stitches still visible. Imaging: not available Assessment/Plan: 76 M s/p resection of metastatic tumor to the br ain, done at [facility]. Patient recovering well from surgery . He will have follow-up with radiation oncology for radiation therapy. I instruc kerrie the patient to have his [facility] the [facility]. He is also having a follow-up MRI in 3 m [facility], so we can schedule an appointment at the neurosurgery clinic after the scans are done. I staffed this patient with Dr. Suggs who agreed w ith my assessment and plan. /shalonda/ DRAKE HEARN RESIDENT Signed: 11/17/2021 10:30
--- OUTSIDE RECORDS SUMMARY | 2021-11-18 09:34 | XMS_ITS | Encounter Summary ---
:1945 Author Organization [facility] Address [address] [place] [address] Support Name Relationship Address Phone SILKE LOCKWOOD Unavailable [id number] [place] [address] SILKE LOCKWOOD Unavailable [id number] [place] [address] Insurance Providers: All historical and current Section [...] Victor [place] Jun 10, [id number] M[address] Pabon [facility] (WNR) ADVANTAGE (WNR) 2019 8 [id number] [phone] ,ANDER Bennett [place] Jun 10, [id number] MANDIE P [facility] (WNR) ADVANTAGE (WNR) 2018 3 [id number] [phone] ,ANDER Bennett Selected Encounter This section includes the information on record at [place] for the Encounter. Date/Time Encounter Type Encounter Reason Provider Source Description Nov 17, 2021 03:25 Outpatient TELEPHONE TRIAGE MARY VASQUEZ PM Encounter IHE Encounter Template Text not [...] The data comes from all [place] treatment [facility]. Appointment Date/Time Appointment Type Appointment Facili ty Name Dec 15, 2021 04:00 PM AMBULATORY - MEDICINE [facility] CS Active, Pending, and Scheduled Orders [...] The data comes from all [place] treatment [facility]. Test Date/Time Test Type Test Details Facility Name Oct 14, 2021 10:49 AM [facility] CARE-RADIATION THERAPY Cons Web Producer's Choice Nov 17, 2021 10:20 AM Imaging - Magnetic MRI-BRAIN (P) [facility] Resonance Imaging (MRI) Order [...] Reference Range Comment Oct 27, 2021 09:00 [facility] FINGERSTICK GLUCOSE Speci men Type: BLOOD AM Comment: Apolonia hamilton Ordering Provid er: LIAM MEJIA Report Released Date/Time: Oct 27, 2021 01:25 PM Reporting Lab: [facility] [address] [facility] [address] Performing Lab: [facility] [address] FINGERSTICK GLUCOSE 109 H 70-100 Oct 27, 2021 [facility] COMPREHENSIVE METABOLIC Spec imen Type: PLASMA 08:53 AM PANEL+MG No comment enter ed. Ordering Provid er: DENG LOUISE Report Released Date/Time: Oct 14, 2021 10:46 AM Reporting Lab: [facility] [address] [facility] [address] Performing Lab: [facility] [address] CREATININE 1.0 0.7-1.2 UREA NITROGEN 23 8-26 [...] 78 >60 Oct 27, 2021 08:53 AM [facility] CBC & DIFF Specim en Type: BLOOD Comment: Dee sy Differential Performed Ordering Provid er: DENG LOUISE Report Released Date/Time: Oct 14, 2021 10:46 AM Reporting Lab: [facility] [address] Performing Lab: [facility] [address] WBC 10.67 4.0-11.0 RBC 3.73 L 4.6-6.2 [...] tobacco-related health factor, from the [facility] where the Encounter took place. Date/Time Current Smoking Status Comment Facility May 26, 2021 03:30 PM VA-TOBACCO FORMER USER [facility] Tobacco Use History This section includes a history of the smoking, or tobacco- related health factors, that were collected on or before the date of the Encounter. The data comes from the [place] facility where the Encounter took place. Date/Time Smoking Status/Tobacco Use Comment Facil ity May 26, 2021 03:30 PM VA-TOBACCO QUIT 15 YRS OR MORE [facility] Jul 05, 2020 06:42 PM VA-TOBACCO FORMER USER [facility] Jan 09, 2018 02:01 PM VA-TOBACCO FORMER USER [facility] Jan 09, 2018 02:01 PM VA-TOBACCO QUIT 5 TO < 15 YRS [facility] Apr 16, 2017 10:17 AM FORMER TOBACCO USER 7Y OR GREATER [facility] Jun 09, 2016 10:03 AM FORMER TOBACCO USER 7Y OR GREATER [facility] May 06, 2015 08:19 AM FORMER TOBACCO USER 7Y OR GREATER [facility] Advance Directives: All historical and current Section [...] July 24, 2021 ADVANCE DIRECTIVE PAPA LEWIS [facility] July 24, 2021 ADVANCE DIRECTIVE DISCUSSION PAPA LEWIS [facility] Radiology Reports: +/- 30 days of [...] PET CT BODY WITH CONTRAST: ELENA MORRIS [facility] MANDIEANDER MOON [id number] -[birth year]G 24, 194 7 M Exm Date: OCT 27, 2021@08:53 Req Phys: DENG LOUISE Pat Loc: [facility] HEM ONC PHONE DANI (Req'g Img Loc: NUC MED Service: Unknown (Case 1910 COMPLETE) PET IMAGE W/CT SKULL-THIGH (NM Detailed) CPT:50581 Reason for Study: pt with non-small cell lung c ancer, also has follicular lymphom; (Case 1911 COMPLETE) F-18 FDG (NM Detailed) CPT: A9552 Clinical History: [place] IS NOT under investigation for COVID-19 or is COVID-19 negative pt with non-small cell lung cancer, also has fo llicular lymphom; now with brain met (resected at [facility] )- please eval disease status Responsible provider name a nd phone number to notify for critical findings if other than user placing the order and pager listed below: User placing orders pag er: [phone] LAST CREATININE 1.2 (09/15/21) Report Status: Verified Date Reported: OCT 27, 2021 Date Verified: OCT 27, 2021 Plate Sensitizer E-Sig:/ES/ELENA MORRIS MD Report: PET/CT SCAN INDICATION: Patient with non-small cell lung ca ncer, also has follicular lymphoma. Now with brain metastases, resected at [facility] 10/07/2021. These evaluate for disease status. COMPARISON: [...] 02:36 LR SURGICAL PATHOLOGY REPORT: MIGUELITO HEWITT [facility] PM LOCAL TITLE: LR SURGICAL PATHOLOGY REPORT STANDARD TITLE: PATHOLOGY REPORT DATE OF NOTE: OCT 21, 2021@14:36:45 ENTRY DATE: OCT 21, 2021@14:36:45 AUTHOR: MIGUELITO HEWITT EXP COSIGNER: URGENCY: STATUS: COMPLETED $APHDR Reporting Lab: [facility] [CLIA# [id number]] [place] [address] - - - - - - - [...] 2021 13:21): REVIEW 4 OUTSIDE SLIDES LABELED: [id number] - - - - - - - [...] Submitted are 4 slides receiv ed from [facility]. After review the material is returned to: [facility] [address] [place] Division [place] [address] MICROSCOPIC DESCRIPTION: Microscopic examination performed. BB DIAGNOSIS [...] morphologic e valuation support the diagnosis. /es/ MIGUELITO HEWITT MD STAFF PATHOLOGIST Signed Oct 21, 2021@14:36 Performing Laboratory: Surgical Pathology Report Performed By: [facility] [CLIA# [id number]] [place] [address] $FTR - - - - - - [...] - - ANDER LOCKWOOD STANDARD FORM 515 ID:[id number] SEX:M :1945 AGE: 76 LOC: 57181 PCP: Liam Mejia MD /shalonda/ MIGUELITO HEWITT MD STAFF PATHOLOGIST Signed: 10/21/2021 14:36 Encounter Notes: All associated encounter notes This section contains the clinical notes associated to the Encounter. Date/Time Encounter Note(s) Provider Source Nov 17, 2021 03:25 PM RN PROGRESS NOTE: MARY VASQUEZ [facility] TITLE: CCC: CLINICAL TRIAGE STANDARD TITLE: RN PROGRESS NOTE DATE OF NOTE: NOV 17, 2021@15:25:17 ENTRY DATE: NOV 17, 2021@15:25:17 AUTHOR: MARY VASQUEZ EXP COSIGNER: URGENCY: STATUS: COMPLETED Patient Demographics Patient Name: ANDER LOCKWOOD Patient Primary Address: [address] [place] [address] Way < br>[place] [address] Patient Primary Phone: [phone] Patient : 1945 SSN: [id number] Patient Age: 76 Caller Relationship: Home Health Caller Name: Adilia Emergency Contactx: SILKE LOCKWOOD Emergency Contact Phonex: Triage Summary Nurse Summary: NURSES NOTES PATIENT CONCERN/DURATION/ONSET: 's home h [facility] nurse calling to report had a ''trip and fall'' in the last 1.5 weeks since her last visit. 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 States that he reports a sore right shoulder when he raises his a rm above his head. He does not plan to get his injury evaluated according to N. She i s call per protocol for reporting a fall. WHAT HAS PATIENT TRIED TO TREAT THE SYMPTOMS: un known HISTORY/PREVIOUS TREATMENT: a fib and does take apixaban WHAT IS PATIENT GOAL FOR THE CALL: Report fall t o PACT DID YOU CONSIDER USING CCC LIP (TELE or VVC): no BASE ENGINEER DISPOSITION: Will forward to P ACT for further management of veterans concerns. agrees wit h plan of care and verbalizes via teach-back s/s to seek ED/UC evaluation as well as home care advic e offered (e.g. if symptoms worsen or new symptoms present should seek medic al care). Best contact for 's N Angelita is [phone] or directly. (Caller could accurately sum marize the agreed upon plan of care as discussed in the education log portion of this note.) Per policy, automated recommendations for an 'ap pointment' indicates an interaction (virtual or in-person) with the care team. Chief Complaint: Fall Report by HHN Patient Disposition Patient/Caregiver agrees to plan of care: Yes Summary of Actions Other course(s) of action Generated msg to PACT/Provider Non-Triage/Non-Symptom Call Generated msg to PACT/Provider-NonTriage Clinical Contact Center Codes Clinic/Location: V23 [facility] PHONE CCC RN /shalonda/ MARY VASQUEZ RN VISN 23 DAYTIME DISCHARGE COORDINATOR Signed: 11/17/2021 15:25 Receipt Acknowledged By: * AWAITING SIGNATURE * MARIA LUZ MANCERA
--- OUTSIDE RECORDS SUMMARY | 2021-11-18 09:35 | XMS_ITS | Encounter Summary ---
:1945 Author Organization [facility] Address [address] [place] [address] Care Team Providers Name Role Phone Elsewhere, Pcp Primary Care Provider Unavailable Reason for Referral Outpatient (Routine) - Closed Specialty Diagnoses / Procedures Referred By Contact Refer red To Contact Medical Oncology / Diagnoses Bakari Brain Pratima Kellogg, [facility] Oncology Procedures Medical Oncology - Lung cancer eConsult Huang, Ph.D. [address] [place] [phone] Referral ID Status Reason Start Date Expiration Date Visits Requ ested Visits Authorized [id number] Closed 10/09/2021 10/09/2022 1 1 Outpatient (Routine) - Authorized Specialty Diagnoses / Procedures Referred By Contact Refer red To Contact Diagnoses Bakari Brain Pratima Kellogg M.D., Ph.D. [address] [place] [phone] Referral ID Status Reason Start Expiration Visits Visits Date Date Requested Authorized [id number] Authorized Patient 10/09/2021 10/09/2022 1 1 Preference Outpatient (Routine) - Authorized Specialty Diagnoses / Procedures Referred By Contact Refer red To Contact Diagnoses Mass Brain Pratima Kellogg M.D., Ph.D. [address] [place] [phone] Referral ID Status Reason Start Expiration Visits Visits Date Date Requested Authorized [id number] Authorized Patient 10/09/2021 10/09/2022 1 1 Preference Physical Therapy (Routine) - Authorized Specialty Diagnoses / Procedures Referred By Contact Refer red To Contact Diagnoses Mass Brain Pratima Kellogg M.D., Ph.D. [address] [place] [address] Referral ID Status Reason Start Expiration Visits Visits Date Date Requested Authorized [id number] Authorized Patient 10/09/2021 10/09/2022 99 99 Preference Encounter Details Date Type Department Care Team Description 10/09/2021 Orders Only Department of Pratima Kellogg, Bakari Bailey in (Primary Neurologic Surgery in M.Shane, Ph.D . Dx) [place], [place] [address] [facility] [address] [place] [phone] Social History Tobacco Use Types Packs/Day Years Used Date Smoking Tobacco: Former Smokeless Tobacco: Never Alcohol Use Standard Drinks/Week Comments Defer 0 (1 standard drink = 0.6 oz pure alcoho l) Sex Assigned at Date Recorded Not on file documented as of this encounter Plan of Treatment Upcoming Encounters Date Type Specialty Care Team Description 11/18/2021 Appointment Radiation Oncology Luiz Nagy M.D. [address] [place], [place] [phone] (Wo rk) documented as of this encounter Visit Diagnoses Diagnosis Mass Brain - Primary documented in this encounter Care Teams Chief Green Officer Relationship Specialty Start Date End Date Elsewhere, Pcp PCP - General Internal Medicine 10/03/21 documented as of this encounter
--- OUTSIDE RECORDS SUMMARY | 2021-11-18 09:35 | XMS_ITS | Encounter Summary ---
:1945 Author Organization [facility] Address [address] [place] [address] Care Team Providers Name Role Phone Elsewhere, Pcp Primary Care Provider Unavailable Reason for Referral MRI/CAT/PET Scan (Routine) - Authorized Specialty Diagnoses / Procedures Referred By Contact Refer red To Contact Radiology Diagnoses Secondary Malignant Neoplasm Brain (HCC) Kye Nagy M.D. [facility] Procedures MR Brain with IV Contrast [address] [place] [phone] Referral ID Status Reason Start Date Expiration Date Visits V isits Requested Authorized [id number] Authorized 11/15/2021 11/15/2022 1 1 Outpatient (Routine) - Authorized Specialty Diagnoses / Procedures Referred By Contact Refer red To Contact Radiation Oncology [facility] M .D. [facility] [address] [place] [phone] Referral ID Status Reason Start Date Expiration Date Visits V isits Requested Authorized [id number] Authorized 11/15/2021 11/14/2024 10 10 Specialty Diagnoses / Procedures Referred By Contact Refer red To Contact Kye Nagy M .D. [facility] [address] [place] [phone] Referral ID Status Reason Start Date Expiration Date Visits Requ ested Visits Authorized Specialty Diagnoses / Procedures Referred By Contact Refer red To Contact Kye Nagy M .D. [facility] [address] [place], [place] [phone] Referral ID Status Reason Start Date Expiration Date Visits Requ ested Visits Authorized Radiation Therapy (Routine) - Authorized Specialty Diagnoses / Procedures Referred By Contact Refer red To Contact Diagnoses Secondary Malignant Neoplasm Brain (HCC) Kye Nagy M.D. [facility] Procedures Management Visit [address] [place], [place] [phone] Referral ID Status Reason Start Date Expiration Date Visits V isits Requested Authorized [id number] Authorized 11/15/2021 11/15/2022 10 10 Radiation Therapy (Routine) - Authorized Specialty Diagnoses / Procedures Referred By Contact Refer red To Contact Diagnoses Secondary Malignant Neoplasm Brain (HCC) Kye Nagy M.D. [facility] Procedures Prior Auth Rad Tx [address] [place], [place] [phone] Referral ID Status Reason Start Date Expiration Date Visits V isits Requested Authorized [id number] Authorized 11/15/2021 11/15/2022 1 1 Radiation Therapy (Routine) - Authorized Specialty Diagnoses / Procedures Referred By Contact Refer red To Contact Diagnoses Secondary Malignant Neoplasm Brain (HCC) [facility]. [facility] Procedures Initial Rad Onc Treatment Planning CT Simulation [address] [place] [phone] Referral ID Status Reason Start Date Expiration Date Visits V isits Requested Authorized [id number] Authorized 11/15/2021 11/15/2022 1 1 Reason for Visit Appointment Request (Routine) - Closed Specialty Diagnoses / Procedures Referred By Contact Refer red To Contact Radiation Oncology Diagnoses Secondary Malignant Neoplasm Brain (HCC) Sheri Baker P.A.-C. [address] [place], [place] [address] Referral ID Status Reason Start Date Expiration Date Visits Requ ested Visits Authorized [id number] Closed 11/07/2021 11/07/2022 1 1 Encounter Details Date Type Department Care Team Description 11/15/2021 Hospital Encounter Department of Yakov, Kye carrillo Malignant Radiation Oncology Reina Wang Neoplasm Brain (HCC) in [address] (Primary Dx) [place], [place] [address] [facility] [address] [place], [place] [phone] (Work) [phone] Social History Tobacco Use Types Packs/Day Years Used Date Smoking Tobacco: Former Smokeless Tobacco: Never Alcohol Use Standard Drinks/Week Comments Defer 0 (1 standard drink = 0.6 oz pure alcoho l) Sex Assigned at Date Recorded Not on file documented as of this encounter Last Filed Vital Signs Vital Sign Reading Time Taken Comments Blood Pressure 117/69 11/15/2021 9:55 AM CDT Pulse 88 11/15/2021 9:55 AM CDT Temperature 36.2 ??C (97.2 ??F) 11/15/2021 9:55 AM CDT Respiratory Rate - - Oxygen Saturation - - Inhaled Oxygen Concentration - - Weight 81.9 kg (180 lb 8.9 oz) 11/15/2021 9:55 AM CDT Height - - Body Mass Index 27.45 10/04/2021 1:00 AM CDT documented in this encounter Medications at Time of Discharge Medication Sig Dispensed Refills Start Date End Date acetaminophen (TYLENOL) 500 Take 2 tablets 0 09/11 mg tablet (1,000 mg total) by mouth every 6 (six) hours as needed for pain for up to 7 doses. amoxicillin (for_AMOXIL) Take 500 mg by mouth 0 500 mg capsule as needed (4 tabs one hr prior to dental work). apixaban (ELIQUIS) 5 mg Take 1 tablet (5 mg 60 tablet 0 07/2021 tablet total) by mouth 2 (two) times a day. May restart 1 week after surgery atorvastatin (LIPITOR) 20 Take 0.5 tablets by 0 0 06/07/2021 mg tablet mouth at bedtime. cholecalciferol, vitamin Take 25 mcg by mouth 0 D3, 25 mcg (1,000 Unit) daily. tablet dilTIAZem (TIAZAC/TAZTIA Take 180 mg by mouth 0 XT) 180 mg ER capsule daily. famotidine (PEPCID) 20 mg Take 20 mg by mouth 0 0 04/18/2021 tablet 2 (two) times a day. folic acid 1 mg tablet Take 1 mg by mouth 0 03/21 daily. magnesium oxide 400 mg Take 400 mg by mouth 0 magnesium tablet daily. multivitamin capsule Take 1 tablet by 0 6 mouth daily. documented as of this encounter Consult Notes Kye Nagy M.D. - 11/15/2021 10:00 AM CDT SUBJECTIVE REQUESTING PROVIDER Sheri Baker P.A.-C. REASON FOR CONSULT 1. Secondary Malignant Neoplasm Brain (HCC) HISTORY OF PRESENT ILLNESS Mr.William Maury Orellana is a 76 y.o. male with solitary left frontal lobe brain metastasis from non-small cell lung cancer that has been resected on October 07, 2021. I am asked by Ms. Baker to evaluate the patient for radiotherapy. 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 10/27/2021 Imaging PET/CT scan revealed FDG uptake associated with mesenteric, pericaval, and left pelvic lymph nodes that may be related to the patient's low-grade lymphoma or inflammatory in etiology. Malignant Neoplasm Of Lung Lower Lobe Or Bronchus Right (HCC) 01/30/2020 Initial Diagnosis Malignant Neoplasm Of Lung Lower Lobe Or Bronchus Right (HCC) 06/2019: Enlarging RLL lung nodule first seen on chest CT. 12/24/2019: CT-guided RLL biopsy was non-diagnostic. 01/30/2020 Surgery and Procedures Right lower lobe wedge resection and mediastinal lymph node sampling. Pathology confirmed moderately invasive adenocarcinoma, 1.2 cm in size, removed with negative margins. 2 station 11 lymph nodes were positive adjacent to the pulmonary artery. Multiple lymph nodes are lymph node fragments were negative from station 11, station 7, and station 4R. Final pathologic stage pT1b pN1. 03/01/2020 - 04/12/2020 Chemotherapy Three cycles of cisplatin and pemetrexed 07/05/2020 - 07/15/2020 Toxicity Patient hospitalized with possible pemetrexed induced pneumonitis. 10/03/2021 Other 10/03/2021 to 10/09/2021: Patient presented to a local emergency room with progressive mental status changes including a blunt affect, decrease communication, and confusion. CT scan of the head revealedleft frontal lobe mass with vasogenic edema and 8 mm midline shift. He was transferred and admitted to [facility]. An MRI of the brain on October 04, 2021 revealed a 4.2 x 2.9 x 3.6 cm peripherally enhancing centrally necrotic left frontal lobe mass with surrounding vasogenic edema. There wereno other masses. CT chest abdomen pelvis on October 04, 2021 showed ill-defined hazy mesentery in the central abdomen with a few mildly enlarged lymph nodes or soft tissue nodules. Indeterminate mildly enl arged left iliac lymph node. Indeterminate 7 mm sclerotic lesion in the right iliac bone. No findings of malignancy in the chest. The reticular and groundglass opacities in both lungs have significantly improved since 08/15/2020 and were likely infectious or inflammatory. Dr. Jackson performed a gross total resection on October 07, 2021. A postoperative MRI of the brain on October 08, 2021 revealed postsurgical changes with no other lesions. Shortly after surgery, he was ambulating with minimal assistance, voiding independently, and tolerating an oral diet. 10/07/[address] Jackson performed a left frontal craniotomy and gross total resection the left frontal lobe mass. Pathology confirmed metastatic adenocarcinoma with mucinous features compatible with patient's known lung primary. 10/27/2021 Imaging PET/CT scan revealed FDG uptake associated with mesenteric, pericaval, and left pelvic lymph nodes that may be related to the patient's low-grade lymphoma or inflammatory in etiology. 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 Slowly progressing on CT on 05/26/2020--12 mm. INTERVAL HISTORY The patient reports that he is recovering well from his surgery. He denies any current headaches, vision changes, seizures, bowel/bladder incontinence, weakness/numbness/tingling. He has had some word-finding difficulties but this is also improving. He does have some lightheadedness when he goes from sitting to standing. He fell 4 days ago when he tripped. He has had no problems since then. He deniesa history of prior radiation therapy, connective tissue disorders, or inflammatory bowel disease. His ECOG performance status is 1. REVIEW OF SYSTEMS Review of systems was negative except as documented above. PATIENT REPORTED SYMPTOM SCREEN FATIGUE (Scale: 0 = no fatigue; 10 = worst fatigue you can imagine): 0 PAIN (Scale: 0 = no pain; 10 = worst pain you can imagine): 0 OVERALL QUALITY OF LIFE (Scale: 0 = as bad as can be; 10 = as good as can be): 9 PAST MEDICAL HISTORY Past Medical History: Diagnosis Date Apnea Sleep Obstructive Atrial fibrillation Osteoarthritis Hyperlipidemia Right kidney mass Chronic right common iliac artery thrombus, on anticoagulation Follicular lymphoma, diagnosed 2017 Non-small cell lung cancer, diagnosed 2019 PAST SURGICAL HISTORY Past Surgical History: Procedure Laterality Date CRANIOTOMY - TUMOR Left 10/07/2021 Procedure: LEFT frontal craniotomy for tumor resection, IRENA lawrence.; Surgeon: Bebeto Jackson M.D., Ph.D.; Location: [facility] OR Left total hip arthroplasty Right lower lobe wedge resection mediastinal lymph node sampling, January 30, 2020 Bilateral cataract extractions SOCIAL HISTORY Social History Socioeconomic History Marital status: Tobacco Use Smoking status: Former Smokeless tobacco: Never Vaping Use Vaping Use: never used Substance and Sexual Activity Alcohol use: Defer Drug use: Defer Sexual activity: Defer He lives in [place], [place] with his Adrianen. 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 Heserved in the [employer]. He is a former smoker of 1-2 packs of cigarettes per day for 37 years. He quit in 2002. He has no children. FAMILY HISTORY Family History Problem Relation Age of Onset Diabetes Father Peripheral vascular disease Father Coronary artery disease Father Lung cancer Mother Stroke Mother OBJECTIVE BP 117/69 (BP Location: Right arm, Patient Position: Sitting, Cuff Size: Regular) Pulse 88 Temp 36.2 ??C (Temporal) Wt 81.9 kg BMI 27.45 kg/m?? PHYSICAL EXAM General: Patient is awake, alert, and oriented to person, place, and time. No apparent distress. Thepatient is here today with his Adrianne. ENT: Pupils equal, round, and reactive to light changes of cataract extractions bilaterally. Sclera anicteric. Oral cavity inspection reveals moist mucous membranes and no visible lesions. He has well-healed surgical incision in the superior left aspect of the scalp. There is some residual suture. Neck: Supple. Lymph: No palpable cervical, supraclavicular, infraclavicular, or axillary adenopathy. Spine: There is no tenderness to palpation of the spine. Lungs: Clear to auscultation bilaterally. Heart: Regular rate and rhythm. Normal S1 and S2. No murmurs. Abdomen: Soft, non-tender, non-distended. Normal active bowel sounds are present. Extremities: No edema. Neurologic: CN II-XII tested and intact. Strength is normal and symmetric in both upper and lower extremities. Sensation is intact to light touch. Gait is mildly antalgic. He lists slightly to the leftwhen first standing and walking. He notes that this has been the case since his surgery. Finger to nose, heel to butterfield, and rapid alternating movements were normal. Deep tendon reflexes are normal and symmetric throughout. Serial sevens, 3 item recall after 5 minutes, and spelling of the word ???worldforwards and backwards was normal. DIAGNOSTICS I reviewed the patient's pathology reports and imaging. ASSESSMENT / PLAN #1 Stage IIB (pT1b, pN1, cM0) adenocarcinoma of the right lower lobe of the lung, status post right lower lobe wedge resection and mediastinal lymph node sampling on January 30, 2020 #2 3 cycles of cisplatin and pemetrexed completed April 12, 2020 with subsequent observation due to possible pemetrexed pneumonitis June-July 2020 #3 Left frontal lobe solitary brain metastasis from adenocarcinoma of the lung, status post maximally safe resection on October 07, 2021 #4 History of follicular lymphoma treated with chemotherapy and Rituxan in 2017 with subsequent Rituxan maintenance through 2019 #5 Slowly enlarging right renal mass, radiographically consistent with renal cell carcinoma first noted February 17, 2020 I had a detailed discussion with the patient and his regarding the risks, benefits, and alternatives of radiotherapy in this setting. I reviewed the NCCN guidelines in formulating my recommendations. I went over these with the patient. I recommend fractionated stereotactic radiotherapy to the left frontal lobe metastasis cavity to a dose of either 27 Gy in 3 fractions or 30 Gy in 5 fractions based on the cavity size. I discussed the logistics as well as the acute and chronic side effects of treatment in detail. The acute side effects are common and include hair loss, scalp irritation, fatigue and possible brain swelling which could lead nausea, vomiting, headaches, or more rarely seizures. Long-term side effects could include prolonged hair loss, hearing loss, vision changes or loss, short-term memory deficits, changes in cognition, pituitary hormone deficiencies, a very low risk of radiation necrosis (1-3%) that could require surgery, and a very small risk) 0.2% or less) secondary malignancy. After this discussion, I provided the patient with a written summary of my recommendations. His questions were answered to his verbalized satisfaction. The patient verbally stated that he would like toproceed with treatment and signed the consent form. He will undergo CT simulation on Thursday, November 18, 2021 and a planning MRI at [facility] on the same day. We will endeavor to begin treatment Sunday, November 28, 2021. My thanks to Ms. Baker and Drs. Sanford and Wesley for the opportunity to participate in this patient's care. EDUCATION Ready to learn, no apparent learning barriers were identified; learning preferences include listening. Explained diagnosis and treatment plan; patient expressed understanding of the content. CONSENT Discussed the risks, benefits, alternatives, and the necessity of other members of the healthcare team participating in the procedure. All questions answered and consent given. I have spent 60 minutes with this patient today with 55 minutes spent in counseling the patient. Signed by: Kye Nagy M.D. 11/15/2021 5:26 PM CDT Radiation Oncology [facility] [address] [place] [address] documented in this encounter Miscellaneous Notes Addendum Note - Jazmín Vaughn C.NLucindaALucinda - 11/15/2021 10:00 AM CDT Encounter addended by: Jazmín Vaughn C.N.ALucinda on: 11/16/2021 7:21 AM Actions taken: Letter saved documented in this encounter Plan of Treatment Upcoming Encounters Date Type Specialty Care Team Description 11/18/2021 Appointment Radiation Oncology Luiz Nagy M.D. [address] [place], [place] [phone] (Wo rk) Scheduled Orders Name Type Priority Associated Order Schedule Diagnoses Prior Auth Rad Tx Radiation Routine Secondary Ordered: Oncology Malignant 11/15/2021 Neoplasm Brain (HCC) Management Visit Radiation Routine Secondary 10 Occurren nikki Oncology Malignant starting Neoplasm Brain 11/15/2021 un til (HCC) 11/14/2022 MR Brain with IV Imaging RAD - Routine Secondary Expected: Contrast (most inpatients Malignant 11/15/2021 and all Neoplasm Brain (Approximate) , outpatients) ([facility]) Expires: 02/13/2023 Scheduled Referrals Name Type Priority Associated Order Schedule Diagnoses Radiation Oncology Outpatient Referral Routine Secondary Malig nant Expected: 11/15/2021 - PRO education Neoplasm Brain (Approxima te), visit ([facility]) Expires: 2022 Radiation Oncology Outpatient Referral Routine Secondary Malig nant Expected: 11/15/2021 - Nurse education Neoplasm Brain (Approxi mate), visit (clinic) ([facility]) Expires: 07/2022 Radiation Oncology Outpatient Referral Routine 10 Occurrences nurse visit starting 2021 (clinic) until documented as of this encounter Visit Diagnoses Diagnosis Secondary Malignant Neoplasm Brain (HCC) - Primary documented in this encounter Care Teams Piece Maker Relationship Specialty Start Date End Date Elsewhere, Pcp PCP - General Internal Medicine 7/25/22 documented as of this encounter
--- OUTSIDE RECORDS SUMMARY | 2021-11-18 09:35 | XMS_ITS | Encounter Summary ---
:1945 Author Organization [facility] Address [address] [place] [address] Care Team Providers Name Role Phone Elsewhere, Pcp Primary Care Provider Unavailable Reason for Visit Outpatient (Routine) - Closed Specialty Diagnoses / Procedures Referred By Contact Refer red To Contact Medical Oncology / Diagnoses Mass Brain Pratima Kellogg, [facility] Oncology Procedures Medical Oncology - Lung cancer Chyna Huagn, Ph.D. [address] [place] [phone] Referral ID Status Reason Start Date Expiration Date Visits Requ ested Visits Authorized [id number] Closed 10/09/2021 10/09/2022 1 1 Encounter Details Date Type Department Care Team Description 10/14/2021 Internal E-Consult Department of Oncology in Erica Jain Mass Brain [place], [place] Reina [address] [facility] [address] [place] [phone] [place], [place] [phone] Social History Tobacco Use Types Packs/Day Years Used Date Smoking Tobacco: Former Smokeless Tobacco: Never Alcohol Use Standard Drinks/Week Comments Defer 0 (1 standard drink = 0.6 oz pure alcoho l) Sex Assigned at Date Recorded Not on file documented as of this encounter Consult Notes Miranda Jain M.D. - 10/14/2021 8:20 AM CDT SUBJECTIVE Ordering Physician: Pratima Kellogg M.D., Ph.D. The patient was not personally interviewed or examined. The history and examination findings are based on the clinical documentation provided and/or discussed with a physician or provider who had personally interviewed and examined the patient. Time spent: Five minutes or more of medical review. Chief Complaint / Reason for Visit A consult was placed regarding Crow Orellana, a 76 y.o. male. Clinical question to be answered: Follow-up metastatic carcinoma to the brain s/p resection 10/07 History of Present Illness Mr. Orellana is a 76-year-old former smoker patient with history of lung cancer that was resected in 2019 followed by adjuvant chemotherapy and B-cell lymphoma, diagnosed in 2015, that was treated with chemo immunotherapy and maintenance therapy with rituximab who presented last month with confusion,aphasia and right-sided weakness in the setting of a new left frontal brain mass with significant vasogenic edema. Mr. Orellana also has history of COPD, atrial fibrillation on Eliquis, hyperlipidemia. Imaging with CT scan the chest, abdomen and pelvis showed no evidence of neoplastic disease in the chest. There was a sclerotic bone lesion, indeterminate in the right iliac bone measuring 7 mm, indeterminate mildly enlarged left iliac lymph nodes and a nonspecific ill- defined hazy mesentery in the central abdomen with a few mildly enlarged lymph nodes or soft tissue nodules. Mr. Orellana was taken to the OR on October 07, 2021 and had the mass resected. Final pathology confirmed metastatic adenocarcinoma with mucinous features, TTF1 and CDX2 negative and cytokeratin 7 positive. Mr. Orellana was discharged on October 09. He is referred to see radiation oncology and Neuro-Oncology, however those have not been scheduled yet. [facility] and lung cancer. We do not have access to those records. History obtained from the patient while in the hospital indicated that he received treatment with R-CHOP and rituximab maintenance in 2015 onwards for couple of years. Also that he received aright lower lobectomy in 2019 and adjuvant chemotherapy because of positive lymph node status. OBJECTIVE as above. Consult Findings: As above. ASSESSMENT / PLAN This is a 76-year-old former smoker patient with a metastatic adenocarcinoma to the brain, CK7 positive, TTF1 negative and history of resected lung cancer of the right lower lobe and B-cell lymphoma. Previous treatments for those malignancies occurred at the [facility]. Although the current cancer is TTF1 negative, it could still be possible to represent a lung primary adenocarcinoma as 20% of those tumors are indeed TTF1 negative. at this point, we will need to obtain the previous records, stage the cancerwith PET-CT and molecular early correct arise with MCSTP. He does have a referral to see radiation oncology for radiation of the surgical cavity to the brain. Recommendations: -I will ask our office to obtain previous records including medical oncology office note to confirm treatment for lymphoma and adjuvant therapy for lung cancer. Also we will need pathology report of the previous right lower lobectomy from 2019. Tentatively, we would need the slides from that resectionspecimen to compare with the current resected brain mass. -please refer to thoracic medical oncology and order PET CT. Also MCSTP and PDL1 TPS on the resectedtumor. -Mr. Orellana will follow-up with radiation oncology for radiation of the surgical cavity. documented in this encounter Plan of Treatment Upcoming Encounters Date Type Specialty Care Team Description 11/18/2021 Appointment Radiation Oncology Luiz Nagy M.D. [address] [place], [place] [phone] (Wo rk) documented as of this encounter Visit Diagnoses Diagnosis Mass Brain documented in this encounter Care Teams Carrot Tier Relationship Specialty Start Date End Date Elsewhere, Pcp PCP - General Internal Medicine 10/03/21 documented as of this encounter
--- OUTSIDE RECORDS SUMMARY | 2021-11-18 09:35 | XMS_ITS | Encounter Summary ---
:1945 Author Organization [facility] Address [address] [place] [id number] Care Team Providers Name Role Phone Elsewhere, Pcp Primary Care Provider Unavailable Reason for Visit Reason Comments Med Refill Encounter Details Date Type Department Care Team Description 10/26/2021 Refill Department of Infusion Hallie Joiner R.N. Med Refill Therapy in [address] [phone] [place] [address] [place], [place] [phone] Social History Tobacco Use Types Packs/Day Years Used Date Smoking Tobacco: Former Smokeless Tobacco: Never Alcohol Use Standard Drinks/Week Comments Defer 0 (1 standard drink = 0.6 oz pure alcoho l) Sex Assigned at Date Recorded Not on file documented as of this encounter Miscellaneous Notes Telephone Encounter - Manju Cruz - 10/26/2021 1:19 PM CDT Images from the original note were not included. Nurse review: Unable to forward request to provider; Pharmacy Communication. Primary Provider: ELSEWHERE, PCP Requested Prescriptions Pending Prescriptions Disp Refills dexAMETHasone (DECADRON) 4 mg tablet 9 tablet 0 Sig: Take 1 tablet (4 mg total) by mouth as directed for 10 days. 10 mg x 1 day, 8 mg x 2 days, 4 mg x 2 days, 2 mg x 2 days Pharmacy (include location): [facility] - [place], [place] - [address] [place] [address] documented in this encounter Plan of Treatment Upcoming Encounters Date Type Specialty Care Team Description 11/18/2021 Appointment Radiation Oncology Luiz Nagy M.D. [address] [place], [place] [phone] (Wo rk) documented as of this encounter Visit Diagnoses Not on filedocumented in this encounter Care Teams It Network Engineer Relationship Specialty Start Date End Date Elsewhere, Pcp PCP - General Internal Medicine 10/03/21 documented as of this encounter
--- OUTSIDE RECORDS SUMMARY | 2021-11-18 09:35 | XMS_ITS | Encounter Summary ---
:1945 Author Organization [facility] Address [address] [place] [address] Care Team Providers Name Role Phone Elsewhere, Pcp Primary Care Provider Unavailable Reason for Visit Reason Comments Headache 76 year old male admits with concerns of head pressure x 2 days. Pt has recent hx of a brain surgery . Was told by primary provider to get a CT scan. Auth/Cert Specialty Diagnoses / Procedures Referred By Contact Refer red To Contact Diagnoses . Procedures . Referral ID Status Reason Start Date Expiration Date Visits Requ ested Visits Authorized [id number] 1 1 Encounter Details Date Type Department Care Team Description 10/25/2021 Emergency [facility] Marcel Gale Pr essure Head (Primary Department P.A.-C. Dx) [address] [place] [phone] (Wo rk) Social History Tobacco Use Types Packs/Day Years Used Date Smoking Tobacco: Former Smokeless Tobacco: Never Alcohol Use Standard Drinks/Week Comments Defer 0 (1 standard drink = 0.6 oz pure alcoho l) Sex Assigned at Date Recorded Not on file documented as of this encounter Last Filed Vital Signs Vital Sign Reading Time Taken Comments Blood Pressure 136/71 10/25/2021 9:32 AM CDT Pulse 84 10/25/2021 9:32 AM CDT Temperature 36 ??C (96.8 ??F) 10/25/2021 9:07 AM CDT Respiratory Rate 16 10/25/2021 9:32 AM CDT Oxygen Saturation 98% 10/25/2021 9:32 AM CDT Inhaled Oxygen Concentration - - Weight 81.6 kg (179 lb 14.3 oz) 10/25/2021 9:10 AM CDT Height - - Body Mass Index 27.35 10/04/2021 1:00 AM CDT documented in this encounter Discharge Instructions Discharge InstructionsMarcel Gale P.A.-C. - 10/25/2021 9:45 AM CDT 8 day decadron taper: 10 mg tomorrow, 8 mg two days, 4 mg two days, 2 mg two days Return for rapidly worsening symptoms or new symptoms as discussed AttachmentsThe following attachments cannot be sent through Care Everywhere. General Headache Without Cause [id number] (Maltese)documented in this encounter Medications at Time of [...] mouth daily. documented as of this encounter ED Notes Marcel Gale P.A.-C. - 10/25/2021 8:57 AM CDT SUBJECTIVE CHIEF COMPLAINT/REASON FOR VISIT Headache (76 year old male admits with concerns of head pressure x 2 days. Pt has recent hx of a brain surgery . Was told by primary provider to get a CT scan.) HISTORY OF PRESENT ILLNESS Crow Orellana is a 76 y.o. male presenting to [facility] requesting evaluation for headache/head pressure. Past medical history notable for but not limited to atrial fibrillation, osteoarthritis, lymphoma, hyperlipidemia, brain mass with craniotomy and tumor resection on 10/07/2021 at [facility]. Patient has had some residual left frontal pressure but worse over the past 3-4 days but without any pain or focal neurological deficits. No fevers or chills. No aphasia, vision changes, dysarthria, numbness, tingling, balance changes. No falls or trauma. Patient did restart his Eliquis for chronic anticoagulation for his atrial fibrillation on 10/14/2021. Patient has finished his Keppra course and dex taper. [facility] of head pressure and they recommended presenting to nearest ED for CT of head to rule out surgical complications such as bleed with patient being restarted on his anticoagulation. History provided by: Patient and medical records product introduction manager needed/used: no REVIEW OF SYSTEMS Constitutional: Negative for chills and fever. HENT: Negative for ear pain and sore throat. Eyes: Negative for visual disturbance. Respiratory: Negative for shortness of breath. Cardiovascular: Negative for chest pain. Gastrointestinal: Negative for abdominal pain, blood in stool and vomiting. Genitourinary: Negative for dysuria and hematuria. Musculoskeletal: Patient denies any new or worsening joint/muscle pain Skin: Negative for rash. Neurological: Positive for headaches (Left frontal head pressure). Negative for dizziness and syncope. OBJECTIVE Initial Vitals Temperature Pulse Rate Heart Rate Resp Rate Blood Pressure SpO2 10/25/21 0907 10/25/21 0907 -- 10/25/21 0907 10/25/21 0907 10/25/21 0907 36 ??C 80 16 (!) 134/112 98 % Pain Score 10/25/21 0908 4 PHYSICAL EXAMINATION Constitutional: Nursing note and vitals reviewed. He appears not lethargic. No distress. HENT: Head: Normocephalic and atraumatic. No signs of injury. Nose: Nose normal. Mouth/Throat: Mucous membranes are moist. Craniotomy surgical incision well-appearing without evidence of dehiscence or infection Eyes: Conjunctivae and EOM are normal. Pupils are equal, round, and reactive to light. Cardiovascular: Normal rate. Capillary refill: takes less than 3 secondsEdema: no edema noted Pulmonary/Chest: Effort normal. No tachypnea. No respiratory distress. Musculoskeletal: General: No deformity. Normal range of motion. Cervical back: Normal range of motion. Comments: Strength and sensory intact upper and lower extremities bilaterally Neurological: Alert and oriented to person, place, and time. He is not disoriented. No cranial nervedeficit. He exhibits normal muscle tone. Coordination normal. Skin: Skin is warm, dry and normal color. He is not diaphoretic. Psychiatric: He has a normal mood and affect. Behavior is normal. ED Medication Administration from 10/25/2021 0841 to 10/25/2021 0958 Date/Time Order Dose Route Action Action by 10/25/2021 0946 CDT dexAMETHasone tablet 10 mg (DECADRON) 10 mg oral Given Amanda Bardales ASSESSMENT / PLAN ASSESSMENT/PLAN IMPRESSION AND PLAN The patient presents to the ED for evaluation of headache/head pressure. DISPOSITION: Patient is awake, alert, oriented and appropriate to questions who is nontoxic or ill-appearing. Initial presentation to ED notable for an afebrile 76-year-old male with vital signs within normal limits. See HPI for more details. Secondary to this patient with history of craniotomy on 10/07/2021 with starting his anticoagulation on 10/14/2021 for atrial fibrillation prophylaxis and with head pressureworsening over the past 3-4 days a shared decision making discussion was had proceeding with CT of head with noncontrast to rule out acute intracranial bleed or evidence of postsurgical complication. Reassuring that patient has a nonfocal neurological exam in absent any systemic signs of infection. 9:25AM CT HEAD NON-CONTRAST IMPRESSION: 1. Small scattered foci of increased density at the operative site consistent with a small amount of hemorrhage which may be a normal postoperative change. 2. The mass in the left frontal lobe has decreased markedly in size and there is markedly decreased surrounding edema when compared to the preoperative study. Mass effect has essentially resolved with only minimal effacement of ventricular sulci adjacent to the operative site. 3. Left frontal craniotomy. 9:28 AM Paged Neurosurgery via ATC to discuss CT findings. Spoke with Dr. Cordova, neurosurgeon, who recommends that patient start dexamethasone taper over the next 8 days with first dose being 10 mg in the emergency department. No other further recommendations or interventions. No concern on CT findings. I encourage follow up with their primary care provider as indicated. I also encourage to return emergency department for worsening symptoms or any other concerns that they feels requires further evaluation. This plan of discharge and follow-up including all test results was discussed in detail with opportunity to ask questions during discharge process. At this time there no further questions regarding this plan and discussion. I will discharge them home in stable condition. DIFFERENTIAL DIAGNOSIS Tension headache, migraine headache, intracranial bleed, increased ICP, postsurgical edema I reviewed previous medical records including documentation from previous visits, lab results and radiology images/report. I personally reviewed the radiology image(s) and reviewed the radiology report(s). Case reviewed with other health body care manager, including Surgery. Final Diagnoses: as of 10/25/21 0958 Pressure Head - Possible edema in setting of being postoperative from left-sided craniotomy Marcel Gale, PLucindaALucinda-C. 10/25/21 0958 documented in this encounter Plan of Treatment Upcoming Encounters Date Type Specialty Care Team Description 11/18/2021 Appointment Radiation Oncology Luiz Nagy M.D. [address] [place], [place] [phone] (Wo rk) documented as of this encounter Procedures Procedure Name Priority Date/Time Associated Comments Diagnosis CT HEAD WITHOUT RAD - Semiurgent 10/25/2021 9:02 Resul ts for this IV CONTRAST (Fast; most ED AM CDT procedure are in patients; some the results inpatients) section. documented in this encounter Results CT Head without IV Contrast (10/25/2021 9:02 AM CDT) Anatomical Region Laterality Modality Head, Neuroradiology RST LOS, Neuroradiology ARZ LOS, N/A Computed Tomography Neuroradiology FLA LOS Specimen (Source) Anatomical Collection Method Collection Time Re ceived Time Location / / Volume Laterality 10/25/2021 9:01 AM CDT Impressions 10/25/2021 9:18 AM CDT 1. Small scattered foci of increased density at the operative site consistent with a small amount of hemorrhage which may be a normal postope rative change. 2. The mass in the left frontal lobe has decreased markedly in size and there is markedly decreased surrounding edema when compared to the p reoperative study. Mass effect has essentially resolved with only minimal effacement of ventricular s ulci adjacent to the operative site. 3. Left frontal craniotomy. 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 There are tiny hyperdense foci at the operative site co nsistent with a small amount of hemorrhage which may be a normal postoperative change. Ventricles and Sulci: ??Minimal effaceme nt of ventricular sulci adjacent to the operative site. No hydrocephalus. Calvarium: Left frontal craniotomy with rosey holes. Paranasal Sinuses: Small cysts or polyps in the right maxillary sinus and left sphenoid sinus. Procedure Note London Pop M.D. - 10/25/2021Format ting of this note might be different from the original. 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 There are tiny hyperdense foci at the operative site co nsistent with a small amount of hemorrhage which may be a normal postoperative change. Ventricles and Sulci: Minimal effacement of ventricular sulci adjacent to the operative site. No hydrocephalus. Calvarium: Left frontal craniotomy with rosey holes. Paranasal Sinuses: Small cysts or polyps in the right maxillary sinus and left sphenoid sinus. IMPRESSION: 1. Small scattered foci of increased den sity at the operative site consistent with a small amount of hemorrhage which may be a normal postope rative change. 2. The mass in the left frontal lobe has decreased markedly in size and there is markedly decreased surrounding edema when compared to the p reoperative study. Mass effect has essentially resolved with only minimal effacement of ventricular s ulci adjacent to the operative site. 3. Left frontal craniotomy. Marcel Gale P.A.-C. IMG CT PROCEDURES documented in this encounter Visit Diagnoses Diagnosis Pressure Head - Primary documented in this encounter Administered Medications Inactive Administered Medications - up to 3 most recent administrations Medication Order MAR Action Action Date Dose Rate Site dexAMETHasone tablet 10 mg Given 10/25/2021 9:46 AM CDT 10 mg (DECADRON) 10 mg, oral, Once, On 10/25/21 at 0940, For 1 dose documented in this encounter Active and Recently Administered Medications Times are shown in CDT. Scheduled Medication Order 10/23/2021 10/24/2021 10/25/2021 dexAMETHasone tablet 10 mg (DECADRON) (COMPLETED) 0946 (Given - Provider: Charlotte Bardales R.N.) 10 mg, oral, Once, On 10/25/21 at 0940, For 1 dose documented in this encounter Care Teams Commercial Stripper Relationship Specialty Start Date End Date Elsewhere, Pcp PCP - General Internal Medicine 10/03/21 documented as of this encounter
--- OUTSIDE RECORDS SUMMARY | 2021-11-18 09:35 | XMS_ITS | Clinical Summary ---
:1945 Author Organization [facility] [place] [address] Care Team Providers Name Role Phone Aldo Umaña MD Primary Care Provider Unavailable Allergies Active Allergy Reactions Severity Noted Date Comments Peanut Other - Describe In Comment Field 009 ACID REFLUX Medications Medication Sig Dispensed Refills Start Date End Date Status RANITIDINE 75 MG TAB daily 0 03/21/2006 Active Active Problems Not on file Immunizations Name Administration Dates Next Due Influenza, High-dose Inactivated 02/12/2012 Influenza, IIV3 (Age >=3 years) 02/20/2013, 04/12/2010 Td, Preservative Free (age >= 7 Years) 03/21/2006 Social History Tobacco Use Types Packs/Day Years Used Date Former Smoker Quit: 03/21/19 03 Smokeless Tobacco: Never Used Alcohol Use Standard Drinks/Week Comments Not Asked 0 (1 standard drink = 0.6 oz pure alcoho l) Sex Assigned at Date Recorded Not on file Obstetrics History Last Filed Vital Signs Vital Sign Reading Time Taken Comments Blood Pressure 118/66 05/29/2012 9:21 AM CDT Pulse 76 05/29/2012 9:21 AM CDT Temperature - - Respiratory Rate - - Oxygen Saturation 99% 05/29/2012 9:21 AM CDT Inhaled Oxygen Concentration - - Weight 78.5 kg (173 lb) 05/29/2012 9:21 AM CDT Height 175.3 cm (5' 9) 05/29/2012 9:21 AM CDT Body Mass Index 25.55 05/29/2012 9:21 AM CDT Plan of Treatment Health Maintenance Due Date Last Done Comments COVID-19 vaccine series (#1) 02/23/1946 Tdap 1957 Depression screening for age 12+ 1958 BMI (ht and wt on same day) for age 0608/24/1964 18+ Hepatitis C screening for age 18-79 1964 Colonoscopy through age 75 08/25/1991 Zoster (shingles) series for age 50+ 1996 (1 of 2) Lipids for age 45-75 03/21/2011 03/21/2006 Pneumococcal series for age 65+ (1 - 08/25/2011 PCV) Tetanus booster 03/21/2016 03/21/2006 Influenza for age 65+ 11/10/2021 02/20/2013, 02/12/2012, 04/12/2010 Results Not on filefrom Last 3 Months Insurance Payer Benefit Plan / Subscriber ID Effective Dates Phone Addre ss Type Group MEDICA MEDICA ELECT [id number] 2009-Presen [address] [address] [place] [address] [employer] [id number] 2016-Pres [phone] ATTN: [facility] [employer] [address] [place] [address] [facility] 03/12/1978 [address] [place] (Home) [place] [address] [employer] 03/12/2000 ATTN [facility] [place] [address] (Home) PAYABLE [phone] (Work) [place] [id number] Care Teams Digital Publishing Specialist Relationship Specialty Start Date End Date Aldo Umaña MD PCP - General 03/15/[address] [place] [id number]
--- OUTSIDE RECORDS SUMMARY | 2021-11-18 09:35 | XMS_ITS | Clinical Summary ---
:1945 Author Organization [facility] Address [address] [place] [address] Care Team Providers Name Role Phone Elsewhere, Pcp Primary Care Provider Unavailable Source Comments Patient records contain information from all sites at [facility]. For routine questions regarding patient records, call [phone] during business hours, M-F 8:00 AM - 5:00 PM Central Time. Record requests for emergency care only can be directed to [phone] at any time.[facility] Allergies Active Allergy Reactions Severity Noted Date Comments Peanut GI intolerance Medium 04/08/2008 ACID REFLUX Medications Medication Sig Dispensed Refills Start Date End Date Status amoxicillin Take 500 mg 0 Active (for_AMOXIL) 500 by mouth as mg capsule needed (4 tabs one hr prior to dental work). atorvastatin Take 0.5 0 06/07/2021 Active (LIPITOR) 20 mg tablets by tablet mouth at bedtime. famotidine Take 20 mg by 0 04/18/2021 Acti ve (PEPCID) 20 mg mouth 2 (two) tablet times a day. folic acid 1 mg Take 1 mg by 0 03/21/2021 Active tablet mouth daily. magnesium oxide Take 400 mg 0 05/03/2021 A ctive 400 mg magnesium by mouth tablet daily. multivitamin Take 1 tablet 0 05/06/2015 Ac tive capsule by mouth daily. dilTIAZem Take 180 mg 0 Active (TIAZAC/TAZTIA XT) by mouth 180 mg ER capsule daily. cholecalciferol, Take 25 mcg 0 A ctive vitamin D3, 25 mcg by mouth (1,000 Unit) daily. tablet acetaminophen Take 2 0 10/09/2021 Activ e (TYLENOL) 500 mg tablets tablet (1,000 mg total) by mouth every 6 (six) hours as needed for pain for up to 7 doses. levETIRAcetam Take 1 tablet 12 tablet 0 10/09/2021 A ctive (KEPPRA) 500 mg (500 mg tablet total) by mouth 2 (two) times a day for 12 doses. apixaban (ELIQUIS) Take 1 tablet 60 tablet 0 10/14/2021 Active 5 mg tablet (5 mg total) by mouth 2 (two) times a day. May restart 1 week after surgery dexAMETHasone Take 1 tablet 9 tablet 0 10/25/2021 D iscontinued (DECADRON) 4 mg (4 mg total) 2 ( Reorder) tablet by mouth as directed for 10 days. 10 mg x 1 day, 8 mg x 2 days, 4 mg x 2 days, 2 mg x 2 days dexAMETHasone Take 1 tablet 9 tablet 0 10/25/2021 D iscontinued (DECADRON) 4 mg (4 mg total) 2 ( Reorder) tablet by mouth as directed for 10 days. 10 mg x 1 day, 8 mg x 2 days, 4 mg x 2 days, 2 mg x 2 days dexAMETHasone Take 1 tablet 9 tablet 0 10/31/2021 E xpired (DECADRON) 4 mg (4 mg total) 2 tablet by mouth as directed for 10 days. 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 Malignant Neopl asm Brain (HCC) (Primary Dx) 10/26/2021 Refill Infusion Therapy Marisel Med Refill Pratima Sierra RLucindaNLucinda 10/25/2021 Emergency Emergency Medicine Marcel Gale, Pressu re Head P.A.-C. (Primary Dx) 10/25/2021 Nurse Triage Family Medicine Marisel, Medication P roblem Pratima Sierra R.NLucinda 10/14/2021 Internal E-Consult Oncology Bakari Jain M.D. 10/14/2021 Clinical Oncology Mare Jain M.D. 10/14/2021 Clinical Neurological Manny Cordova Surgery Reina Patel 10/11/2021 Orders Only Neurological Kami Mass Brain Surgery Calvin (Primary Dx) P.A.-C., M.P.H. 10/09/2021 Orders Only Neurological Pratima Kellogg Mass Brain Surgery Reina Wang, Ph.D. (Primary Dx) 10/07/2021 Anesthesia Event Mgadaleno Geronimo M.D. Marybel Gillespie, BRODIE, RETAIL EVENT AND SALES ASSISTANT 10/07/2021 Surgery Bebeto Jackson, LEFT frontal Reina, Ph.D. craniotomy for tumor resection melinda CUSA. 10/07/2021 Documentation Neurology Alfredo Shipley M.B., B.Ch. 10/03/2021 - Hospital Encounter Neurological London Ng Bra in (Primary Dx); 10/09/2021 Surgery Reina Sierra Decline Functional Status [R53.81 (ICD-1 0-CM)]; Alfredo Shipley Mass Brain Pepper MGege, B.Ch. Bebeto Jackson M.D., Ph.D. 10/03/2021 Emergency Emergency Medicine Salomon Lea Mass B rain D.O. (Primary Dx) 10/03/2021 Clinical Neurological Miguel Noriega Communication Priscilla Wang M.D. from Last 3 Months Immunizations Name Administration Dates Next Due HZV (ZOSTAVAX) 05/06/2015 Influenza, Unspecified 12/30/2014, 12/10/2013 PCV13 12/30/2014 PPSV23 12/10/2013 Tdap 03/21/2006 Family History Medical History Relation Name Comments Coronary artery disease Father Diabetes Father Peripheral vascular disease Father Lung cancer Mother Stroke Mother Relation Name Status Comments Father Mother Social History Tobacco Use Types Packs/Day Years Used Date Smoking Tobacco: Former Smokeless Tobacco: Never Tobacco Cessation: Counseling Given: Not Answered Alcohol Use Standard Drinks/Week Comments Defer 0 (1 standard drink = 0.6 oz pure alcoho l) Sex Assigned at Date Recorded Not on file Last Filed Vital Signs Vital Sign Reading Time Taken Comments Blood Pressure 117/69 11/15/2021 9:55 AM CDT Pulse 88 11/15/2021 9:55 AM CDT Temperature 36.2 ??C (97.2 ??F) 11/15/2021 9:55 AM CDT Respiratory Rate 16 10/25/2021 9:32 AM CDT Oxygen Saturation 98% 10/25/2021 9:32 AM CDT Inhaled Oxygen Concentration - - Weight 81.9 kg (180 lb 8.9 oz) 11/15/2021 9:55 AM CDT Height 172.7 cm (5' 8) 10/04/2021 1:00 AM CDT Body Mass Index 27.45 10/04/2021 1:00 AM CDT Plan of Treatment Upcoming Encounters Date Type Specialty Care Team Description 11/18/2021 Appointment Radiation Oncology Luiz Nagy M.D. [address] [place], [place] [phone] (Wo rk) Health Maintenance Due Date Last Done Comments CT Colonography 1945 Cologuard 1945 Colonoscopy 1945 Colorectal Cancer Screening 1945 FIT 1945 Hepatitis C Screening 1945 Zoster Vaccines (1 of 2) 07/01/2015 05/06/2015 Lipid (Cholesterol) Screening 12/11/2018 12/11/2013 Depression Screening (Annual 03/12/2021 PHQ-2) Fall Risk Screen (Annual) 03/12/2021 Influenza Vaccine (#1) 2022 12/24/2018, 01/28/2018, 12/25/2016, Additional history exists COVID-19 Vaccine (5 - Booster for 01/16/2022 09/15/2021, , Pfizer series) 04/15/2020, Additional history exists DTaP,Tdap,and Td Vaccines (3 - Td 03/12/2023 03/12/2013, , or Tdap) 03/21/2006 Fasting Glucose for Diabetes 10/08/2024 10/08/2021, 022, Screening 10/05/2021, Additional history exists Pneumococcal vaccine (65+ years) Completed 11/10/2015, , 12/30/2014, Additional history exists Medical Devices Implanted Type Area Buildings And Grounds Supervisor Device Shelf Model / Identifier Expiration Serial / Date Lot Scrw Ti Mtr Slv [id number] - [id number] Hardware e.g. Left: De puy Synthes [id number] / Implanted: Qty: 12 on 10/07/2021 by Bebeto Rios M.D., Ph.D. at [facility] pins/screws/r Cranial / ods Implanted Implanted Right: Port Single Port Single Chest Lumen Lumen Procedures Procedure Name Priority Date/Time Associated Comments Diagnosis OUTSIDE NM PET Routine 10/27/2021 10:15 Results f or AM CDT this procedure are in the results section. CT HEAD WITHOUT IV RAD - Semiurgent 10/25/2021 9:02 Re sults for CONTRAST (Fast; most ED AM CDT this procedur e patients; some are in the inpatients) results section. MR BRAIN WITHOUT AND RAD - Routine 10/08/2021 9:59 Res ults for WITH IV CONTRAST (most inpatients AM CDT this pr ocedure and all are in the outpatients) results section. BASIC METABOLIC Routine 10/08/2021 5:03 Results f or PANEL, S/P AM CDT this procedure are in the results section. CBC WITH Routine 10/08/2021 5:03 Results for DIFFERENTIAL, B AM CDT this procedu re are in the results section. REMOTE OXIMETRY STAT 10/07/2021 5:53 MONITORING CONT. PM CDT SURGICAL PATHOLOGY, Routine 10/07/2021 3:34 Mass Brain Resul ts for FROZEN LAB PM CDT this procedure are in the results section. GLUCOSE, WHOLE BLOOD STAT 10/07/2021 2:12 Resu lts for PM CDT this procedure are in the results section. POTASSIUM, B STAT 10/07/2021 2:12 Results for PM CDT this procedure are in the results section. SODIUM, B STAT 10/07/2021 2:12 Results for PM CDT this procedure are in the results section. CALCIUM, IONIZED, STAT 10/07/2021 2:12 Results for S/B PM CDT this procedure are in the results section. ABG W/COOX STAT 10/07/2021 2:12 Results for PM CDT this procedure are in the results section. ABORH, RBC STAT 10/07/2021 2:10 Results for PM CDT this procedure are in the results section. TYPE AND SCREEN STAT 10/07/2021 2:10 Results f or PM CDT this procedure are in the results section. LDA ANE ARTERIAL Routine 10/07/2021 1:15 Results for LINE INSERTION PM CDT this procedur e are in the results section. NM ARTL CATH/CNULA Routine 10/07/2021 1:15 Result s for MONITOR PERC PM CDT this procedure are in the results section. LDA ANE ENDOTRACHEAL Routine 10/07/2021 1:13 Resu lts for AIRWAY PM CDT this procedure are in the results section. ADULT OXYGEN THERAPY Routine 10/07/2021 12:39 PM CDT CRANIOTOMY TUMOR 10/07/2021 12:37 Mass Brain PM CDT APIXABAN, ANTI-XA, P Routine 10/05/2021 12:32 Res ults for PM CDT this procedure are in the results section. PROTHROMBIN TIME Routine 10/05/2021 12:30 Results for (PT), P PM CDT this procedure are in the results section. BASIC METABOLIC Routine 10/05/2021 6:49 Results f or PANEL, S/P AM CDT this procedure are in the results section. CBC WITH Routine 10/05/2021 6:49 Results for DIFFERENTIAL, B AM CDT this procedu re are in the results section. LACTATE Routine 10/05/2021 6:49 Results for DEHYDROGENASE (LD), AM CDT this pro cedure S are in the results section. MR BRAIN PERFUSION RAD - Routine 10/04/2021 12:48 Resu lts for WITHOUT AND WITH IV (most inpatients PM CDT this procedure CONTRAST and all are in the outpatients) results section. CT ABDOMEN PELVIS RAD - Routine 10/04/2021 8:47 Result s for WITH IV CONTRAST (most inpatients AM CDT this pr ocedure and all are in the outpatients) results section. CT CHEST WITH IV RAD - Routine 10/04/2021 8:47 Results for CONTRAST (most inpatients AM CDT this proced ure and all are in the outpatients) results section. LEUKEMIA/LYMPHOMA Routine 10/04/2021 7:54 Results for PHENOTYPE, B AM CDT this procedure are in the results section. CBC WITH Routine 10/04/2021 7:54 Results for DIFFERENTIAL, B AM CDT this procedu re are in the results section. BASIC METABOLIC Routine 10/04/2021 7:54 Results f or PANEL, S/P AM CDT this procedure are in the results section. SARS CORONAVIRUS 2, Routine 10/04/2021 1:44 Resul ts for RNA, RAPID POC, V AM CDT this proce dure are in the results section. ECG STAT 10/03/2021 8:17 Results for PM CDT this procedure are in the results section. DX CHEST AP OR PA RAD - Semiurgent 10/03/2021 12:40 Re sults for AND LATERAL 2 VIEWS (Fast; most ED PM CDT this p rocedure patients; some are in the inpatients) results section. CT HEAD WITHOUT IV RAD - Semiurgent 10/03/2021 12:29 R esults for CONTRAST (Fast; most ED PM CDT this procedur e patients; some are in the inpatients) results section. COMPREHENSIVE STAT 10/03/2021 12:17 Results fo r METABOLIC PANEL, S/P PM CDT this pr ocedure are in the results section. CBC WITH STAT 10/03/2021 12:17 Results for DIFFERENTIAL, B PM CDT this procedu re are in the results section. URINALYSIS WITH STAT 10/03/2021 12:15 Results for MICROSCOPIC PM CDT this procedure are in the results section. ECG STAT 10/03/2021 12:06 Results for PM CDT this procedure are in the results section. OUTSIDE CT BODY Routine 09/15/2021 10:25 Results for AM CDT this procedure are in the results section. OUTSIDE DX CHEST Routine 08/22/2021 1:05 Results for PM CDT this procedure are in the results section. from Last 3 Months Results PET IMAGE W/CT [id number] NM Pet (10/27/2021 10:15 AM CDT) Specimen (Source) Anatomical Location Collection Method / Collectio n Time Received Time / Laterality Volume Narrative IIMS - 11/03/2021 3:33 PM CDT This order has been created and auto-finalized to support the import of outside images. If available, original i nterpretation can be found on the Media Tab in Chart Review, in Document V iewer, or as an image in QREADS. If a re-interpretation or overread is re quired please follow defined workflow. ?? Provider Not In System IMG NM PROCEDURES Performing Organization Address City/State/ZIP Code Phon e Number IIMS IIMS NA CT Head without IV Contrast (10/25/2021 9:02 AM CDT)Only the most recent of2 resultswithin the time period is included. Anatomical Region Laterality Modality Head, Neuroradiology RST [...] craniotomy. Marcel Gale P.A.-C. IMG CT PROCEDURES MR Brain without and with IV Contrast (10/08/2021 9:59 AM CDT) Anatomical Region Laterality Modality Head, Brain, Neuroradiology RST LOS, Neuroradiology SERGIO N/A Magnetic Resonance LOS, Neuroradiology FLA [facility] Specimen (Source) Anatomical Collection Method Collection Time Re ceived Time Location / / Volume Laterality 10/08/2021 10:05 AM CDT Impressions 10/08/2021 11:19 AM CDT 1. ??Status post left frontal craniotomy and left frontal lobe mass resection. Linear enhancement about the operative bed likely reflects post surgical changes; continued follow- up will be helpful as postoperative changes evolve. No june tional lesions identified. 2. ??Slightly decreased left frontal lob e edema and associated 8 mm of rightward midline shift. Narrative 10/08/2021 11:19 AM CDT EXAM: MR BRAIN WITHOUT AND WITH IV CONTRAST COMPARISON: MR brain perfusion 2 FINDINGS: Status post left frontal crani otomy and left frontal mass resection, performed 10/07/2021. Expected postsurgical changes within the operative bed including small volume blood products with inherent T1 hyperintensity as well as so me pneumocephalus. ??8mm extra-axial fluid collection subjacent to the craniotomy. Small volum e pneumocephalus along the anterior left frontal convexity. Postoperative restricted diffusion about the resection margins, without restricted diffusion at distant brain sites. Continued quite ext ensive T2 hyperintensity/edema at the left frontal lobe extending mildly across the midline to t he medial right frontal lobe, decreased somewhat since preoperative, with decreasing mass effec t on adjacent left greater than right lateral ventricles. No significant interval change in 8 mm of r ightward midline shift. Allowing for postoperative T1 hyperinten se blood products, some thin linear enhancement about the periphery of the operative bed suggestiv e of postoperative changes. The previously noted relatively thick rind of enhancement at the posteri or margin of the lesion, approximately 8.5 mm in thickness previously appears to have been resected . No abnormal enhancement elsewhere in the brain to suggest additional lesion (preliminary pathology on resected left frontal lesion suggests metastatic carcinoma; final pathology pending). Stable small focus of hemosiderin deposition at right occipital lobe. Patent intracranial arterial flow voids. Paranasal sinuses and mastoid air cells are well aerated with small amount of apparently inspissated secretions at left sphenoid sinus. The b ilateral orbits are intact. Procedure Note Magdaleno Giron Jr., M.D., Ph.D. - 09/11 EXAM: MR BRAIN WITHOUT AND WITH IV CONTR AST COMPARISON: MR brain perfusion 2 FINDINGS: Status post left frontal crani otomy and left frontal mass resection, performed 10/07/2021. Expected postsurgical changes within the operative bed including small volume blood products with inherent T1 hyperintensity as well as so me pneumocephalus. 8mm extra-axial fluid collection subjacent to the craniotomy. Small volum e pneumocephalus along the anterior left frontal convexity. Postoperative restricted diffusion about the resection margins, without restricted diffusion at distant brain sites. Continued quite ext ensive T2 hyperintensity/edema at the left frontal lobe extending mildly across the midline to t he medial right frontal lobe, decreased somewhat since preoperative, with decreasing mass effec t on adjacent left greater than right lateral ventricles. No significant interval change in 8 mm of r ightward midline shift. Allowing for postoperative T1 hyperinten se blood products, some thin linear enhancement about the periphery of the operative bed suggestiv e of postoperative changes. The previously noted relatively thick rind of enhancement at the posteri or margin of the lesion, approximately 8.5 mm in thickness previously appears to have been resected . No abnormal enhancement elsewhere in the brain to suggest additional lesion (preliminary pathology on resected left frontal lesion suggests metastatic carcinoma; final pathology pending). Stable small focus of hemosiderin deposition at right occipital lobe. Patent intracranial arterial flow voids. Paranasal sinuses and mastoid air cells are well aerated with small amount of apparently inspissated secretions at left sphenoid sinus. The b ilateral orbits are intact. IMPRESSION: 1. Status post left frontal craniotomy a nd left frontal lobe mass resection. Linear enhancement about the operative bed likely reflects post surgical changes; continued follow- up will be helpful as postoperative changes evolve. No june tional lesions identified. 2. Slightly decreased left frontal lobe edema and associated 8 mm of rightward midline shift. Pratima Kellogg M.D., Ph.D. IMG MRI PROCEDURES (ABNORMAL) CBC with Differential, Blood (10/08/2021 5:03 AM CDT)Only the most recent of4 resultswithin the time period is included. Patholo gist Method Time Signature Hemoglobin 10.9 (L) 13.2 - 10/08/2021 DTL 16.6 g/dL 5:23 AM CDT Hematocrit 33.5 (L) 38.3 - 10/08/2021 DTL 48.6 % 5:23 AM CDT Erythrocytes 3.61 (L) 4.35 - 10/08/2021 DTL 5.65 5:23 AM CDT x10(12)/L MCV 92.8 78.2 - 10/08/2021 DTL 97.9 fL 5:23 AM CDT RBC Distrib Width 14.5 11.8 - 10/08/2021 DTL 14.5 % 5:23 AM CDT Platelet Count 203 135 - 317 10/08/2021 DTL x10(9)/L 5:23 AM CDT Leukocytes 11.8 (H) 3.4 - 9.6 10/08/2021 DTL x10(9)/L 5:23 AM CDT Neutrophils 10.65 (H) 1.56 - 10/08/2021 DTL 6.45 5:23 AM CDT x10(9)/L Lymphocytes 0.75 (L) 0.95 - 10/08/2021 DTL 3.07 5:23 AM CDT x10(9)/L Monocytes 0.41 0.26 - 10/08/2021 DTL 0.81 5:23 AM CDT x10(9)/L Eosinophils <0.03 0.03 - 10/08/2021 DTL 0.48 5:23 AM CDT x10(9)/L Basophils <0.03 0.01 - 10/08/2021 DTL 0.08 5:23 AM CDT x10(9)/L Specimen Anatomical Collection Method Collection Time Receive d Time (Source) Location / / Volume Laterality Blood (Blood, 10/08/2021 5:03 AM 10/09/19 22 5:15 Venous) CDT AM CDT Pratima Kellogg M.D., Ph.D. LAB BLOOD ADD-ON Performing Organization Address City/State/ZIP Code Phon e Number [facility] - [address] [place], [place] [address] [facility] [place] [address] Laboratories-[facility] [address] (ABNORMAL) Basic Metabolic Panel (10/08/2021 5:03 AM CDT)Only the most recent of 3 resultswithin the time period is included. P athologist Signature Potassium, S 4.5 3.6 - 5.2 10/08/2021 DTL mmol/L 5:44 AM CDT Sodium, S 140 135 - 145 10/08/2021 DTL mmol/L 5:44 AM CDT Chloride, S 105 98 - 107 10/08/2021 DTL mmol/L 5:44 AM CDT Bicarbonate, S 21 (L) 22 - 29 10/08/2021 DTL mmol/L 5:44 AM CDT Anion Gap 14 7 - 15 10/08/2021 DTL 5:44 AM CDT BUN (Blood Urea 26 (H) 8 - 24 10/08/2021 DTL Nitrogen), S mg/dL 5:44 AM CDT Creatinine 1.23 0.74 - 10/08/2021 DTL 1.35 mg/dL 5:44 AM CDT eGFR-Non 57 (L) >=60 10/08/2021 DTL Black/ mL/min/BSA 5:44 AM CDT Estonian Comment: ----ADDITIONAL INFORMATION---- Estimated GFR calculated using the 2009 CKD_EPI creatinine equation. eGFR-Black/ 66 >=60 mL/min/BSA 2021 5:44 AM CDT DTL Comment: ----ADDITIONAL INFORMATION---- Estimated GFR calculated using the 2009 CKD_EPI creatinine equation. Calcium, Total, S 8.5 (L) 8.8 - 10.2 mg/dL 10/08/2021 5:44 AM CDT DTL Glucose, S 122 70 - 140 mg/dL 10/08/2021 5:44 AM CDT D TL Specimen Anatomical Collection Method Collection Time Receive d Time (Source) Location / / Volume Laterality Blood (Blood, 10/08/2021 5:03 AM 10/09/19 5:27 Venous) CDT AM CDT Pratima Kellogg M.D., Ph.D. LAB BLOOD ADD-ON Performing Organization Address City/State/ZIP Code Phon e Number [facility] - [address] [place], [place] [address] [place] [address] [facility] [address] [facility] Surgical Pathology, Frozen Lab (10/07/2021 3:34 PM CDT) Component Value Ref Test Analysis Performed Pathologis t Range Method Time At Signature 10/12/2021 STMA 8:27 AM CDT Participated in Yvonne Lam 10/12/2021 ST[facility] the MLeny -Pathology 8:27 AM Interpretation Fellow CDT Report Jonathan Rodriguez M.D. 10/12/2021 STMA electronically 8:27 AM signed by CDT I verify that I have examined all relevant slides/materials for the specimen(s) and rendered or confirmed the diagnosis. Frozen A. ??Brain, left frontal lesion, biopsy: ??Involved by hig h 10/12/2021 STMA Intraoperative grade carcinoma. 8:27 AM Report CDT B. ??Brain, left frontal lesion, No. 2, biopsy: ??Involved b y high grade carcinoma. Signed by Jonathan Rodriguez M.D. 10/10/2021 9:36 AM Gross Description A. ??Received fresh labeled left frontal brai n lesion is a 10/12/2021 STMA 0.7 x 0.5 x 0.3 cm aggregate of genao-white gelatinous 8:27 AM tissue. CDT All submitted for frozen and permanent sections. ??Grossed by Zelda PaezHRIC Bran(ASCP). B. ??Received fresh labeled left frontal brain lesion #2 is a 4.2 x 3.5 x 2.5 cm portion of brain. ??Multiskill Operator tissue submitted for frozen and permanent sections. Grossed by Zelda PaezH.Edmund, RIC(ASCP). Block Summary A Left frontal brain lesion 10/13/19 STMA A1 Left frontal brain lesion-frozen 8:27 AM A2 Left frontal brain lesion 2 CDT B Left frontal brain lesion #2 B1 Left frontal brain lesion #2 - frozen B2 Left frontal brain lesion #2-2 B3 Left frontal brain lesion #2-3 B4 Left frontal brain lesion #2-4 Interpretation FINAL DIAGNOSIS 10/12/2021 STMA 8:27 AM A. 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 B. ??Brain, left frontal lesion, No. 2, biopsy: ??Involved b y metastatic adenocarcinoma with mucinous features, compatible with patient's known lung primary. Immunostains were performed on block before the neoplastic cells revealed the following: Keratin AE1/AE3: ??Positive Keratin 7: Positive TTF 1: Negative P 40: Negative S100 protein and SOX10: Both negative CDX2: ??Negative The immunophenotype, in conjunction with the primary, supports the above diagnosis. Specimen (Source) Anatomical Collection Method Collection Time Re ceived Time Location / / Volume Laterality Tissue (Brain, 10/07/2021 3:34 PM Left) CDT Tissue (Brain, 10/07/2021 4:00 PM Left) CDT Narrative This result has an attachment that is no t available. Bebeto Jackson M.D., Ph.D. LAB SURG PATH ORDERABLES Performing Organization Address City/[facility] Phon e Number [facility] - [address] [place] [address] [address] [facility] Sodium, B (10/07/2021 2:12 PM CDT) athologist Signature Sodium, B 137 135 - 145 10/07/2021 2:15 STMA mmol/L PM CDT Specimen Anatomical Collection Method Collection Time Receive d Time (Source) Location / / Volume Laterality Blood (Blood, 10/07/2021 2:12 PM 10/08/19 2:12 Arterial Line) CDT PM CDT Magdaleno Geronimo M.D. LAB BLOOD NON ADD-ON Performing Organization Address City/[facility] Phon e Number [facility] - [address] (ABNORMAL) Blood Gas with Coox, Arterial (10/07/2021 2:12 PM CDT) athologist Signature pO2 143 (H) 83 - 108 10/07/2021 STMA mm Hg 2:15 PM CDT pCO2 43 35 - 48 mm 10/07/2021 STMA Hg 2:15 PM CDT pH 7.37 7.35 - 10/07/2021 STMA 7.45 pH 2:15 PM CDT Base Excess -1 -2 - 3 10/07/2021 STMA mmol/L 2:15 PM CDT HCO3 25 22 - 26 10/07/2021 STMA mmol/L 2:15 PM CDT Hemoglobin, B 11.6 (L) 13.2 - 10/07/2021 STMA 16.6 g/dL 2:15 PM CDT O2Hb 97.8 94.0 - 10/07/2021 STMA 98.0 % 2:15 PM CDT COHb <1.0 <3.0 % 10/07/2021 STMA 2:15 PM CDT MetHb <1.0 <1.5 % 10/07/2021 STMA 2:15 PM CDT CtO2 16.3 (L) 18.0 - 10/07/2021 STMA 21.0 vol % 2:15 PM CDT Specimen Anatomical Collection Method Collection Time Receive d Time (Source) Location / / Volume Laterality Blood (Blood, 10/07/2021 2:12 PM 10/08/19 22 2:12 Arterial Line) CDT PM CDT Magdaleno Geronimo M.D. LAB BLOOD NON ADD-ON Performing Organization Address City/[facility] Code Phon e Number [facility] - [address] [place], [place] [address] [place] [address] Laboratories-[facility] [address] [facility] Potassium, Blood (10/07/2021 2:12 PM CDT) P athologist Signature Potassium, B 4.3 3.6 - 5.2 10/07/2021 STMA mmol/L 2:15 PM CDT Specimen Anatomical Collection Method Collection Time Receive d Time (Source) Location / / Volume Laterality Blood (Blood, 10/07/2021 2:12 PM 10/08/19 22 2:12 Arterial Line) CDT PM CDT Magdaleno Geronimo M.D. LAB BLOOD NON ADD-ON Performing Organization Address City/State/ZIP Code Phon e Number [facility] - [address] [place], [place] [address] [place] [address] [facility] [address] [facility] Glucose, Whole Blood (10/07/2021 2:12 PM CDT) athologist Signature Glucose 127 70 - 140 10/07/2021 2:15 STMA mg/dL PM CDT Specimen Anatomical Collection Method Collection Time Receive d Time (Source) Location / / Volume Laterality Blood (Blood, 10/07/2021 2:12 PM 10/08/19 22 2:12 Arterial Line) CDT PM CDT Magdaleno Geronimo M.D. LAB BLOOD TROPONIN Performing Organization Address City/[facility]/ZIP Code Phon e Number [facility] - [address] [place], [place] [address] [place] [id number] Calcium, Ionized (10/07/2021 2:12 PM CDT) athologist [facility] Calcium, 4.67 4.65 - 5.30 10/07/20[facility] Ion[facility], B mg/dL 2:15 PM CDT Specimen Anatomical Collection Method Collection Time Receive d Time (Source) Location / / Volume Laterality Blood (Blood, 10/07/2021 2:12 PM 10/08/19 22 2:12 Arterial Line) CDT PM CDT Magdaleno Geronimo M.D. LAB BLOOD NON ADD-ON Performing Organization Address City/State/ZIP Code Phon e Number [facility] - [address] [place], [place] [address] [place] [address] ABORh Problem, RBC (10/07/2021 2:10 PM CDT) athologist Signature ABORh A Pos Not applicable 10/07/2021 DTL 3:20 PM CDT Specimen Anatomical Collection Method Collection Time Receive d Time (Source) Location / / Volume Laterality Blood 10/07/2021 2:10 PM 2 2:14 CDT PM CDT Resulting Agency Comment Drawn in [place] by [id number] Marybel Gillespie APRN, KAMLESH LAB BLOOD BANK TEST ORDERABL ES Performing Organization Address City/State/ZIP Code Phon e Number [facility] - [address] [place], [place] [address] [facility] [place] [address] Laboratories-[facility] [address] [facility] Type and Screen (with reflex Antibody ID) (10/07/2021 2:10 PM CDT) [facility] Method Time Signature ABORh See Addl Not 10/07/2021 STRM Testing applicable 3:19 PM CDT Antibody Negative Negative 10/07/2021 STRM Screen 2:49 PM CDT Type & Screen 10/10/2021 10/07/2021 STRM Expiration 23:59 2:49 PM CDT Testing Gabriel DEFAULT 10/07/2021 STRM Location 2:14 PM CDT Specimen Anatomical Collection Method Collection Time Receive d Time (Source) Location / / Volume Laterality Blood (Blood, 10/07/2021 2:10 PM 10/08/19 2:14 Arterial Line) CDT PM CDT Resulting Agency Comment Drawn in OR by [id number] Magdaleno Geronimo M.D. LAB BLOOD BANK TEST ORDERABL ES Performing Organization Address [facility] Phon e Number [facility] - [address] [place] [address] [facility] [place] [address] Laboratories-[address] [place] ARTL CATH/CNULA MONITOR PERC, LDA ANE ARTERIAL LINE INSERTION (10/07/2021 1:15 PM CDT) Narrative Magdaleno Geroinmo M.D. - 10/07/2021 1:15 PM CDT Magdaleno Geronimo M.D. ? 10/07/2021 ??1:25 PM Invasive Catheter Date/Time: 10/07/2021 1:15 PM Performed by: Magdaleno Geronimo M.D. Authorized by: Magdaleno Geronimo M.D. Location: OR PROCEDURE DETAILS: Line type: arterial ?? Laterality: right Location: radial Location details: new site ? Age group: adult Catheter diameter: 20 Ga Technique: palpation ?? Monitored: yes ?? Number of attempts: 1 UNIVERSAL PROTOCOL All relevant documentation and testing w ere reviewed and available. All required blood products, implants, devic es and or special equipment were made available as applicable. Pre-proced ure verification was conducted and the correct site was marked if required. A fire risk assessment was done as applicable. The procedural time-out t o verify correct patient, correct side/site, and procedure was conducted p rior to performing the procedure and confirmed in a procedural pause. PRE-PROCEDURE DETAILS: Appropriate hand hygiene, gown, cap, mas k, protective eyewear, sterile gloves, skin preparation, sterile drape, and strict aseptic technique were utilized as applicable for the procedure .: yes ?? Skin preparation: chlorhexidine ?? SEDATION / ANESTHESIA Anesthesia method: anesthesia POST-PROCEDURE DETAILS: Procedure completed successfully: yes ?? Line secured: secured with sutureless de vice Chlorhexidine disc around insertion site and under catheter with slight turn: yes ?? Complications - arterial: none Magdaleno Geronimo M.D. PROCEDURE/MINOR SURGICAL ORD ERABLES LDA ANE ENDOTRACHEAL AIRWAY (10/07/2021 1:13 PM CDT) Narrative Marybel Gillespie APRN, CRNA - 10/07/2021 1:13 PM CDT Marybel Gillespie APRN, CRNA ? 10/07/2021 ??1:35 PM Airway Date/Time: 10/07/2021 1:13 PM Performed by: Marybel Gillespie APRN, CRN A Authorized by: Magdaleno Geronimo M.D. Patient location during procedure: OR / Procedure Area PROCEDURE DETAILS: Mask difficulty assessment: oral/nasal a irway needed Final airway type: video laryngoscope Laryngeal Manipulation: no ?? Final best view of glottic structures - Cormack/Lehane Score: grade 2A ETT location: oral VL device: glide scope [place] scope blade size: 4 Adult tube size: 7.5 Adult ETT distance at teeth/gum: 22 Oral tube type: standard ETT Cuffed: yes Number of attempt to successful placemen t: 1 Airway confirmation: bilateral breath so unds, positive ETCO2 and bilateral chest rise Other previous techniques attempted: dir ect laryngoscopy; intubation Number of other approaches attempted: 1 Previous direct laryngoscopy: best view of glottic structures: grade 2B Additional Comments Very small mouth opening made it difficu lt to obtain an adequate view of larynx with a MAC 3 blade. Easy GlideSco pe intubation ?? PRE PROCEDURE DETAILS: Pre evaluation for airway management: pr ocedure Urgency: elective Preop assessment of probable difficulty: no difficulty anticipated Preoxygenation: bag valve mask SEDATION / ANESTHESIA Anesthesia method: anesthesia POST PROCEDURE DETAILS: ? Procedure outcome: successful ?? Airway event: no complications Magdaleno Geronimo M.D. ANESTHESIA ORDERABLES (ABNORMAL) Apixaban, Anti-Xa, P (10/05/2021 12:32 PM CDT) P athologist Signature Apixaban, 25 (H) <10 ng/mL 10/05/2021 DTL Anti-Xa, P 2:11 PM CDT Comment: ----ADDITIONAL INFORMATION---- This test has been modified from the man ufacturer's instructions. Its performance characteri stics were determined by [facility] in a manner co nsistent with CLIA requirements. This test has not bee n cleared or approved by the U.S. Food and Drug Admin istration. Interpretation SEE COMMENT 10/05/2021 2:11 PM CDT DTL Comment: Therapeutic reference ranges have not be en established. Median (5th-95th percentile) peak and tr ough levels observed in clinical trials are shown. Non-valvular atrial fibrillation: Peak levels (2-4 hrs post dose): 2.5 mg (twice daily): 123 (69-221) ng/mL 5 mg (twice daily): 171 (91-321) ng/mL Trough levels (10-12 hrs post dose): 2.5 mg (twice daily): 79 (34-162) ng/mL 5 mg (twice daily): 103 (41-230) ng/mL Prevention and treatment of venous throm boembolism: Peak levels (2-4 hrs post dose): 2.5 mg (twice daily): 67 (30-153) ng/mL 5 mg (twice daily): 132 (59-302) ng/mL 10 mg (twice daily): 251 (111-572) ng/mL Trough levels (10-12 hrs post dose): 2.5 mg (twice daily): 32 (11-90) ng/mL 5 mg (twice daily): 63 (22-177) ng/mL 10 mg (twice daily): 120 (41-335) ng/mL Cautions SEE COMMENT 10/05/2021 2:11 PM CDT DTL Comment: This assay is not indicated for monitori ng low molecular weight heparin (LMWH) or unfractionated heparin (UFH). Presence of UFH and LMWH will falsely el evate apixaban anti-Xa levels. Specimen Anatomical Collection Method Collection Time Receive d Time (Source) Location / / Volume Laterality Blood (Blood, 10/05/2021 12:32 10/05/2021 1:26 Venous) PM CDT PM CDT Miguel Gagnon M.D., M.SLucinda LAB BLOOD NON ADD-O N Performing Organization Address [facility] Phon e Number [facility] - [address] [place], [place] [address] [place] [address] [place], [place] [id number] [place] [address] Prothrombin Time (PT) (10/05/2021 12:30 PM CDT) [facility] Prothrombin 11.9 9.4 - 12.5 10/05/2021 DTL Time, P sec 1:13 PM CDT INR 1.1 0.9 - 1.1 10/05/2021 DTL 1:13 PM CDT Comment: ----ADDITIONAL INFORMATION---- Standard intensity warfarin therapeutic range: 2.0 to 3.0 ?? High intensity warfarin therapeutic rang e: 2.5 to 3.5 Specimen Anatomical Collection Method Collection Time Receive d Time (Source) Location / / Volume Laterality Blood (Blood, 10/05/2021 12:30 10/05/2021 Venous) PM CDT 12:53 PM CDT Lee Bowman M.D. LAB BLOOD ADD-ON Performing Organization Address [facility] Phon e Number [facility] - [address] [place], [place] [address] [facility] [place], [place] [id number] [place] [address] LD (Lactate Dehydrogenase) (10/05/2021 6:49 AM CDT) [facility] LD 157 122 - 222 10/05/2021 DTL U/L 8:17 AM CDT Specimen Anatomical Collection Method Collection Time Receive d Time (Source) Location / / Volume Laterality Blood (Blood, 10/05/2021 6:49 AM 10/06/19 7:52 Venous) CDT AM CDT Lee Bowman M.D. LAB BLOOD NON ADD-ON Performing Organization Address City/State/ZIP Code Phon e Number [facility] - [address] [place], [place] [address] [facility] [place] [address] Laboratories-[facility] [address] MR Brain Perfusion without and with IV Contrast (10/04/2021 12:48 PM CDT) Anatomical Region Laterality Modality Head, Brain, Neuroradiology RST LOS, Neuroradiology ARZ N/A Magnetic Resonance LOS, Neuroradiology FLA LOS Specimen (Source) Anatomical Collection Method Collection Time Re ceived Time Location / / Volume Laterality 10/04/2021 1:03 PM CDT Impressions 10/04/2021 2:30 PM CDT 1. 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 2. Significant associated mass effect fr om 1 with diffuse left frontal vasogenic edema and sulcal effacement, rightward midline shift, and subfalcine herniation. Narrative 10/04/2021 2:30 PM CDT EXAM: MR BRAIN PERFUSION WITHOUT AND WITH IV CONTRAST 3D images were created on an independent workstation as ordered by the treating provider and reviewed by the radiologist to assist in treatment planning. COMPARISON: CT head without contrast Maycol 2021 FINDINGS: 4.2 x 2.9 x 3.6 cm (AP x TV x CC) peripherally enhancing, centrally necrotic and diffusion restricting left frontal lobe mass with surrounding vasogenic edema ([id number]); significant perilesional edema involving much of the left frontal lobe and resultant mass effect that causes 8 mm of rightward midline shift, subfalcin e herniation, and generalized left frontal lobe sulcal effacement. Increased intralesional rCBV on perfusion imaging. No additional enhancing lesions identified. Small amount of blood products along the margin of this mass. Otherwise, no evidence of large volume intracranial hemorrhage, additional mass or mass effect, extra-axial fluid collection, hydrocephalus, or infarct. Tiny mucous retention cyst in the right maxillary sinus and left sphenoid sinus. Mild mucosal thickening in the ethmoid air cells. Procedure Note Magdaleno Bautista M.D., Ph.D. - 2021 EXAM: MR BRAIN PERFUSION WITHOUT AND WIT H IV CONTRAST 3D images were created on an independent workstation as ordered by the treating provider and reviewed by the radiologist to assist in treatment planning. COMPARISON: CT head without contrast Maycol 2021 FINDINGS: 4.2 x 2.9 x 3.6 cm (AP x TV x CC) peripherally enhancing, centrally necrotic and diffusion restricting left frontal lobe mass with surrounding vasogenic edema ([id number]); significant perilesional edema involving much of the left frontal lobe and resultant mass effect that causes 8 mm of rightward midline shift, subfalcin e herniation, and generalized left frontal lobe sulcal effacement. Increased intralesional rCBV on perfusion imaging. No additional enhancing lesions identified. Small amount of blood products along the margin of this mass. Otherwise, no evidence of large volume intracranial hemorrhage, additional mass or mass effect, extra-axial fluid collection, hydrocephalus, or infarct. Tiny mucous retention cyst in the right maxillary sinus and left sphenoid sinus. Mild mucosal thickening in the ethmoid air cells. IMPRESSION: 1. 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 2. Significant associated mass effect fr om 1 with diffuse left frontal vasogenic edema and sulcal effacement, rightward midline shift, and subfalcine herniation. Shawna Geronimo M.D., M.P.H. IMG MRI PROCEDURES CT Abdomen Pelvis with IV Contrast (10/04/2021 8:47 AM CDT) Anatomical Region Laterality Modality Abdomen, Pelvis, Abdominal RST LOS, N/A Comp uted Tomography, Computed Abdominal ARZ LOS, Abdominal FLA LOS Jonatan ography Specimen (Source) Anatomical Collection Method Collection Time Re ceived Time Location / / Volume Laterality 10/04/2021 8:46 AM CDT Impressions 10/04/2021 9:59 AM CDT 1. Ill-defined hazy mesentery in the central abdomen with a few mildly enlarged lymph nodes or soft tissue nodules. These findings are nonsp ecific but differential considerations can include sclerosing mesenteritis, lymphoma, carci noid or other inflammatory conditions. 2. Indeterminate mildly enlarged left il iac lymph nodes. 3. Indeterminate 7 mm sclerotic lesion i n the right iliac bone. 3. No findings of malignancy in the ches t. 4. The reticular and groundglass opaciti es in both lungs have significantly improved since 08/15/2020 and were likely infectious or inflammatory. Narrative 10/04/2021 9:59 AM CDT EXAM: CT CHEST WITH IV CONTRAST, CT ABDOMEN PELVIS WITH IV CONTRAST COMPARISON: CT chest 08/15/2020 FINDINGS: CHEST: No suspicious pulmonary nodules o r masses. The peripheral and basilar predominant reticular opacities and groundglass attenuation moe ve significantly improved since 08/15/2020. No new focal airspace opacity. No pleural effusion or pneumothorax. Moderate upper lobe predominant emphysema. The central airways are patent. Mild jacob tral bronchial wall thickening. Mild scattered bibasilar scarring and/or atelectasis. No thoracic lymphadenopathy. Vascular ca lcifications, including the coronary arteries. Tiny sliding hiatal hernia. Accessed right chest Port -A-Cath with tip near the SVC/RA junction. Mild degenerative changes of the spine. No aggressive osseous lesions. ABDOMEN/PELVIS: Ill-defined, somewhat en capsulated mesentery haziness in the central abdomen with a few surrounding prominent lymph nodes. F ocal mesenteric soft tissue nodules or mildly enlarged lymph nodes measuring up to 2.1 x 9.0 cm in th e left central abdomen (series 3, image 70). Normal caliber small bowel and colon wit hout evidence of obstruction. Sigmoid diverticulosis without diverticulitis. Negative appendix. Multi ple scattered subcentimeter hypodense lesions throughout the liver, some of which are too small to ch aracterize, but may represent cysts and/or hemangiomas. Focal hepatic fatty infiltration along t he ligamentum teres. The hepatic and portal veins are patent. Mild fatty atrophy of the pancre as. The gallbladder, spleen and adrenal glands are negative. Tiny right renal cyst. No hydronephrosis . Mildly left common, internal and externa l iliac lymph nodes. For example, the largest left external iliac lymph node measures 10 mm in short axis (series 3, image 93). No ascites. 7 cm sclerotic focus in the right iliac bone (series 6, image 102). Aortoiliac vascular calcifications. Left hip arthroplasty. D egenerative changes lumbar spine, SI joints and pubic symphysis. Enlarged prostate gland. Procedure Note Armin Quiroga M.D. - 10/04/2021Form atting of this note might be different from the original. EXAM: CT CHEST WITH IV CONTRAST, CT ABDO MEN PELVIS WITH IV CONTRAST COMPARISON: CT chest 08/15/2020 FINDINGS: CHEST: No suspicious pulmonary nodules o r masses. The peripheral and basilar predominant reticular opacities and groundglass attenuation moe ve significantly improved since 08/15/2020. No new focal airspace opacity. No pleural effusion or pneumothorax. Moderate upper lobe predominant emphysema. The central airways are patent. Mild jacob tral bronchial wall thickening. Mild scattered bibasilar scarring and/or atelectasis. No thoracic lymphadenopathy. Vascular ca lcifications, including the coronary arteries. Tiny sliding hiatal hernia. Accessed right chest Port -A-Cath with tip near the SVC/RA junction. Mild degenerative changes of the spine. No aggressive osseous lesions. ABDOMEN/PELVIS: Ill-defined, somewhat en capsulated mesentery haziness in the central abdomen with a few surrounding prominent lymph nodes. F ocal mesenteric soft tissue nodules or mildly enlarged lymph nodes measuring up to 2.1 x 9.0 cm in th e left central abdomen (series 3, image 70). Normal caliber small bowel and colon wit hout evidence of obstruction. Sigmoid diverticulosis without diverticulitis. Negative appendix. Multi ple scattered subcentimeter hypodense lesions throughout the liver, some of which are too small to ch aracterize, but may represent cysts and/or hemangiomas. Focal hepatic fatty infiltration along t he ligamentum teres. The hepatic and portal veins are patent. Mild fatty atrophy of the pancre as. The gallbladder, spleen and adrenal glands are negative. Tiny right renal cyst. No hydronephrosis . Mildly left common, internal and externa l iliac lymph nodes. For example, the largest left external iliac lymph node measures 10 mm in short axis (series 3, image 93). No ascites. 7 cm sclerotic focus in the right iliac bone (series 6, image 102). Aortoiliac vascular calcifications. Left hip arthroplasty. D egenerative changes lumbar spine, SI joints and pubic symphysis. Enlarged prostate gland. IMPRESSION: 1. Ill-defined hazy mesentery in the jacob tral abdomen with a few mildly enlarged lymph nodes or soft tissue nodules. These findings are nonsp ecific but differential considerations can include sclerosing mesenteritis, lymphoma, carci noid or other inflammatory conditions. 2. Indeterminate mildly enlarged left il iac lymph nodes. 3. Indeterminate 7 mm sclerotic lesion i n the right iliac bone. 3. No findings of malignancy in the ches t. 4. The reticular and groundglass opaciti es in both lungs have significantly improved since 08/15/2020 and were likely infectious or inflammatory. Shawna Geronimo M.D., M.P.H. IMG CT PROCEDURES CT Chest with IV Contrast (10/04/2021 8:47 AM CDT) Anatomical Region Laterality Modality Chest, Thoracic RST LOS, Thoracic ARZ N/A Co mputed Tomography, Computed LOS, Thoracic ARZ LOS, Thoracic FLA Dev graphy LOS Specimen (Source) Anatomical Collection Method Collection Time Re ceived Time Location / / Volume Laterality 10/04/2021 9:03 AM CDT Impressions 10/04/2021 9:59 AM CDT 1. Ill-defined hazy mesentery in the central abdomen with a few mildly enlarged lymph nodes or soft tissue nodules. These findings are nonsp ecific but differential considerations can include sclerosing mesenteritis, lymphoma, carci noid or other inflammatory conditions. 2. Indeterminate mildly enlarged left il iac lymph nodes. 3. Indeterminate 7 mm sclerotic lesion i n the right iliac bone. 3. No findings of malignancy in the ches t. 4. The reticular and groundglass opaciti es in both lungs have significantly improved since 08/15/2020 and were likely infectious or inflammatory. Narrative 10/04/2021 9:59 AM CDT EXAM: CT CHEST WITH IV CONTRAST, CT ABDOMEN PELVIS WITH IV CONTRAST COMPARISON: CT chest 08/15/2020 FINDINGS: CHEST: No suspicious pulmonary nodules o r masses. The peripheral and basilar predominant reticular opacities and groundglass attenuation moe ve significantly improved since 08/15/2020. No new focal airspace opacity. No pleural effusion or pneumothorax. Moderate upper lobe predominant emphysema. The central airways are patent. Mild jacob tral bronchial wall thickening. Mild scattered bibasilar scarring and/or atelectasis. No thoracic lymphadenopathy. Vascular ca lcifications, including the coronary arteries. Tiny sliding hiatal hernia. Accessed right chest Port -A-Cath with tip near the SVC/RA junction. Mild degenerative changes of the spine. No aggressive osseous lesions. ABDOMEN/PELVIS: Ill-defined, somewhat en capsulated mesentery haziness in the central abdomen with a few surrounding prominent lymph nodes. F ocal mesenteric soft tissue nodules or mildly enlarged lymph nodes measuring up to 2.1 x 9.0 cm in th e left central abdomen (series 3, image 70). Normal caliber small bowel and colon wit hout evidence of obstruction. Sigmoid diverticulosis without diverticulitis. Negative appendix. Multi ple scattered subcentimeter hypodense lesions throughout the liver, some of which are too small to ch aracterize, but may represent cysts and/or hemangiomas. Focal hepatic fatty infiltration along t he ligamentum teres. The hepatic and portal veins are patent. Mild fatty atrophy of the pancre as. The gallbladder, spleen and adrenal glands are negative. Tiny right renal cyst. No hydronephrosis . Mildly left common, internal and externa l iliac lymph nodes. For example, the largest left external iliac lymph node measures 10 mm in short axis (series 3, image 93). No ascites. 7 cm sclerotic focus in the right iliac bone (series 6, image 102). Aortoiliac vascular calcifications. Left hip arthroplasty. D egenerative changes lumbar spine, SI joints and pubic symphysis. Enlarged prostate gland. Procedure Note Armin Quiroga M.D. - 10/04/2021Form atting of this note might be different from the original. EXAM: CT CHEST WITH IV CONTRAST, CT ABDO MEN PELVIS WITH IV CONTRAST COMPARISON: CT chest 08/15/2020 FINDINGS: CHEST: No suspicious pulmonary nodules o r masses. The peripheral and basilar predominant reticular opacities and groundglass attenuation moe ve significantly improved since 08/15/2020. No new focal airspace opacity. No pleural effusion or pneumothorax. Moderate upper lobe predominant emphysema. The central airways are patent. Mild jacob tral bronchial wall thickening. Mild scattered bibasilar scarring and/or atelectasis. No thoracic lymphadenopathy. Vascular ca lcifications, including the coronary arteries. Tiny sliding hiatal hernia. Accessed right chest Port -A-Cath with tip near the SVC/RA junction. Mild degenerative changes of the spine. No aggressive osseous lesions. ABDOMEN/PELVIS: Ill-defined, somewhat en capsulated mesentery haziness in the central abdomen with a few surrounding prominent lymph nodes. F ocal mesenteric soft tissue nodules or mildly enlarged lymph nodes measuring up to 2.1 x 9.0 cm in th e left central abdomen (series 3, image 70). Normal caliber small bowel and colon wit hout evidence of obstruction. Sigmoid diverticulosis without diverticulitis. Negative appendix. Multi ple scattered subcentimeter hypodense lesions throughout the liver, some of which are too small to ch aracterize, but may represent cysts and/or hemangiomas. Focal hepatic fatty infiltration along t he ligamentum teres. The hepatic and portal veins are patent. Mild fatty atrophy of the pancre as. The gallbladder, spleen and adrenal glands are negative. Tiny right renal cyst. No hydronephrosis . Mildly left common, internal and externa l iliac lymph nodes. For example, the largest left external iliac lymph node measures 10 mm in short axis (series 3, image 93). No ascites. 7 cm sclerotic focus in the right iliac bone (series 6, image 102). Aortoiliac vascular calcifications. Left hip arthroplasty. D egenerative changes lumbar spine, SI joints and pubic symphysis. Enlarged prostate gland. IMPRESSION: 1. Ill-defined hazy mesentery in the jacob tral abdomen with a few mildly enlarged lymph nodes or soft tissue nodules. These findings are nonsp ecific but differential considerations can include sclerosing mesenteritis, lymphoma, carci noid or other inflammatory conditions. 2. Indeterminate mildly enlarged left il iac lymph nodes. 3. Indeterminate 7 mm sclerotic lesion i n the right iliac bone. 3. No findings of malignancy in the ches t. 4. The reticular and groundglass opaciti es in both lungs have significantly improved since 08/15/2020 and were likely infectious or inflammatory. Shawna Geronimo M.D., M.P.H. IMG CT PROCEDURES Leukemia/Lymphoma Immunophenotyping by Flow Cytometry, Blood (10/04/2021 7:54 AM CDT) Component Value Ref Test Analysis Performed Pathologis t Range Method Time At Signature LCMSB Result Performed 10/04/2021 DTL 2:04 PM CDT Final Peripheral blood, flow cytometric immunophenotypin10/04/2021 DTL Diagnosis: 2:04 PM Normal immunophenotyping results. ??No m onotypic B-cell population or increase CDT in blasts identified. Reviewed by: Garcia Dorado M.D. As the signing pathologist, I verify that I have examined all of the relevant flow histograms and other materials related to the specime n(s) and rendered or confirmed the diagnosis. Participated in interpretation: Day Mendes, Pathology Fell ow Special WBC: ??5.7 x 10(9)/L 10/04/2021 DTL Studies: %Lymphs (CBC/automated differential): ??25% 2:04 PM #Lymphs (CBC/automated differential): ??1.5 x 10(9)/L CDT Results: Blasts: ??Not increased by CD45/side scatter and CD34. B-cells: ??No monotypic; normal expression pattern of CD19, CD10, surface kappa and lambda. T-cells/NK-cells: ??No aberrant phenotype by CD3 and CD16. Quality Assessment: ??Specimen received within validated farrukh delines. Microscopic A Wlxmjn-Faqbbz-nkcfohl slid e prepared from the flow cytometry specimen is 10/04/2021 DTL Description examined. ??No morphologic f eatures of acute leukemia or lymphoma are 2:04 PM identified. CDT Comment: ----ADDITIONAL INFORMATION---- This test was developed using an analyte specific reagent. Its performance characteristics were determined by [facility] in a manner consistent with CLIA requirements. This test has not bee n cleared or approved by the U.S. Food and Drug Administration. Specimen Anatomical Collection Method Collection Time Receive d Time (Source) Location / / Volume Laterality Blood (Blood, 10/04/2021 7:54 AM 10/05/19 8:25 Venous) CDT AM CDT Narrative This result has an attachment that is no t available. Shawna Geronimo M.D., M.P.H. LAB GENETIC TESTING Performing Organization Address City/State/ZIP Code Phon e Number [facility] - [address] [place], [place] [address] [facility] [place] [address] Laboratories-[facility] [address] [facility] SARS Coronavirus 2, RNA, Rapid POC, V Asymptomatic (10/04/2021 1:44 AM CDT) [facility] Method Time Signature SARS Undetected Undetected 10/04/2021 DTLR Coronavirus-2 2:08 AM CDT , RNA, Rapid POC, V Comment: Negative for SARS-CoV-2. The [employer] COVID-19 test is a molecular radha t for SARS-CoV-2, the virus that causes COVID- 19. A Negative result means that the [employer] COV ID-19 test did not detect SARS-CoV-2 virus in your sample. [employer] COVID-19 test uses the [employer] App nitoring System. This test has received Emergency Use Authorization (EUA) by the U.S. Food and Drug Administration (FDA) and is used per man ufacturer instructions. Performance characteristic s were verified by [facility] in a manner consistent with CLIA requirements. Fact sheets for this Emerg ency Use Authorization (EUA) can be found at the following links: Providers: [email or web address] [email or web address] Patients: [email or web address] [email or web address] SARS Coronavirus 2, Source Nasopharynx DEFAULT 10/04/2021 2:08 AM CDT DTLR Specimen Anatomical Collection Method Collection Time Receive d Time (Source) Location / / Volume Laterality Varies 10/04/2021 1:44 AM 2 1:44 (Nasopharynx) CDT AM CDT Shawna Geronimo M.D., M.P.H. LAB MICROBIOLOGY - GENERA L ORDERABLES Performing Organization Address City/State/ZIP Code Phon e Number PERFORMING LABS, REF [place] [address] INTERFACE Ref Interface [address] [facility] DTLR Performing Labs, [place] [address] Interface [address] [facility] ECG 12 Lead (10/03/2021 8:17 PM CDT)Only the most recent of2 resultswithin the time period is included. P athologist Signature Ventricular Rate 80 BPM MUSE ECG/Min NM Interval 138 ms MUSE QRSD Interval 86 ms MUSE QT Interval 390 ms MUSE QTC Interval 449 ms MUSE P [place] 57 degrees MUSE R [place] 30 degrees MUSE T Wave [place] 56 degrees MUSE Specimen Anatomical Collection Method Collection Time Receive d Time (Source) Location / / Volume Laterality 10/03/2021 8:17 PM 2 8:31 CDT PM CDT Impressions MUSE - 10/03/2021 8:31 PM CDT Sinus rhythm Premature supraventricular complexes wit h aberrant conduction Premature ventricular complexes Nonspecific T wave abnormality When compared with ECG of 03-OCT-2021 12 :06, Premature ventricular complexes are now present Premature atrial complexes are now prese nt Reviewed by SAW Romero Narrative This result has an attachment that is no t available. Procedure Note Brad Biggs M.D. - 10/03/2021 IMPRESSION: Sinus rhythm Premature supraventricular complexes wit h aberrant conduction Premature ventricular complexes Nonspecific T wave abnormality When compared with ECG of 03-OCT-2021 12 :06, Premature ventricular complexes are now present Premature atrial complexes are now prese nt Reviewed by SAW Romero [place] Ng M.D. ECG ORDERABLES Performing Organization Address City/State/ZIP Code Phon e Number MUSE MUSE NA DX Chest AP or PA and Lateral 2 Views (10/03/2021 12:40 PM CDT) Anatomical Region Laterality Modality Chest, Thoracic RST LOS, Thoracic ARZ LOS, Thoracic N/A Digital Radiography FLA LOS Specimen (Source) Anatomical Collection Method Collection Time Re ceived Time Location / / Volume Laterality 10/03/2021 1:03 PM CDT Impressions 10/03/2021 1:05 PM CDT Comparison 08/15/20. Port-A-Cath. Heart size normal. Postop changes right lung. Port-A-Cath. Negative for consolidative pneumonia. Narrative 10/03/2021 1:05 PM CDT EXAM: DX CHEST AP OR PA AND LATERAL 2 VIEWS Procedure Note Leonardo Saenz M.D. - 10/03/2021 EXAM: DX CHEST AP OR PA AND LATERAL 2 EWS IMPRESSION: Comparison 08/15/20. Port-A-Cath. Heart si ze normal. Postop changes right lung. Port-A-Cath. Negative for consolidative pneumonia. Salomon Lea D.O. IMSilvia DIAGNOSTIC IMAGING PROCE DURES (ABNORMAL) Comprehensive Metabolic Panel (10/03/2021 12:17 PM CDT) P athologist Signature Potassium, P 4.0 3.6 - 5.2 10/03/2021 [facility] mmol/L 12:50 PM CDT Sodium, P 141 135 - 145 10/03/2021 [facility] mmol/L 12:50 PM CDT Chloride, P 104 98 - 107 10/03/2021 [facility] mmol/L 12:50 PM CDT Bicarbonate, P 23 22 - 29 10/03/2021 [facility] mmol/L 12:50 PM CDT Anion Gap, P 14 7 - 15 10/03/2021 [facility] 12:50 PM CDT BUN (Blood Urea 21 8 - 24 10/03/2021 [facility] Nitrogen), P mg/dL 12:50 PM CDT Creatinine 1.25 0.74 - 10/03/2021 [facility] 1.35 mg/dL 12:50 PM CDT eGFR-Black/Afric 65 >=60 10/03/2021 [facility] an [place]ian mL/min/BSA 12:50 PM CDT Comment: ----ADDITIONAL INFORMATION---- Estimated GFR calculated using the 2009 CKD_EPI creatinine equation. eGFR Non-Black/ 56 (L) >=60 mL/min/BSA 10/03/2021 12:50 PM CDT [facility] [place] Comment: ----ADDITIONAL INFORMATION---- Estimated GFR calculated using the 2009 CKD_EPI creatinine equation. Calcium, Total, P 9.5 8.8 - 10.2 mg/dL 10/03/2021 12:5 0 PM CDT [facility] Glucose, P 124 70 - 140 mg/dL 10/03/2021 12:50 PM CDT [facility] Protein, Total, P 6.8 6.3 - 7.9 g/dL 10/03/2021 12:50 PM CDT [facility] Albumin, P 4.0 3.5 - 5.0 g/dL 10/03/2021 12:50 PM CDT [facility] Aspartate Aminotransferase 15 8 - 48 U/L 10/03/2021 1 2:50 PM CDT [facility] (AST), P Alkaline Phosphatase, P 92 40 - 129 U/L 10/03/2021 12 :50 PM CDT [facility] Alanine Aminotransferase (ALT), 16 7 - 55 U/L 022 12:50 PM CDT [facility] P Bilirubin, Total, P 0.4 <=1.2 mg/dL 10/03/2021 12:50 P M CDT [facility] Specimen Anatomical Collection Method Collection Time Receive d Time (Source) Location / / Volume Laterality Blood (Blood, 10/03/2021 12:17 10/03/2021 Venous) PM CDT 12:23 PM CDT Salomon Lea D.O. LAB BLOOD ADD-ON Performing Organization Address City/State/ZIP Code Phon e Number [facility]- [address] [place], [place] [address] [facility] [place] [address] System in [place] [address] Urinalysis with Microscopic: Urine, Midstream (10/03/2021 12:15 PM CDT) Analysis Performed At Patho logist Time Signature Source Urine, Urine, 10/03/2021 [facility] Midstream 2:56 PM CDT Clarity Clear Clear 10/03/2021 [facility] 2:56 PM CDT Color Yellow 10/03/2021 [facility] 2:56 PM CDT Comment: ----REFERENCE VALUE---- Colorless Yellow Rosemary Blood Negative Negative 10/03/2021 2:56 PM CDT [facility] Nitrite Negative Negative 10/03/2021 2:56 PM CDT [facility] Leukocyte Esterase Negative Negative 10/03/2021 2:56 PM CD T [facility] Protein Negative mg/dL 10/03/2021 2:56 PM CDT [facility] Comment: ----REFERENCE VALUE---- Negative Trace Glucose Negative Negative mg/dL 10/03/2021 2:[address] [facility] Ketone Negative Negative mg/dL 10/03/2021 2:[address] [facility] Bilirubin Negative Negative 10/03/2021 2:56 PM CDT [facility] pH 5.0 5.0 - 8.0 10/03/2021 2:56 PM CDT [facility] Specific [place] 1.019 1.001 - 1.035 10/03/2021 2:56 PM CDT [facility] Urobilinogen 0.2 0.2 - 1.0 mg/dL 10/03/2021 2:56 PM CD T [facility] White Blood Cells None Seen /hpf 10/03/2021 2:59 PM CDT [facility] Comment: ----REFERENCE VALUE---- Males: 0-3 Females: 0-10 Unknown: 0-10 Red Blood Cells Occ-2 0 - 2 /hpf 10/03/2021 2:59 PM CDT [facility] Specimen Anatomical Collection Method Collection Time Receive d Time (Source) Location / / Volume Laterality Urine (Urine, 10/03/2021 12:15 10/03/2021 2:52 Midstream) PM CDT PM CDT Salomon Lea D.O. LAB URINE ORDERABLES Performing Organization Address City/[facility] Phon e Number [facility]- [address] [place], [place] [address] [place] [address] System in [place] [address] (CAP) CHEST W CONTRAST-Outside CT Body (09/15/2021 10:25 AM CDT) Specimen (Source) Anatomical Location Collection Method / Collectio n Time Received Time / Laterality Volume Narrative IIMT - 10/04/2021 4:30 PM CDT This order has been created and auto-finalized to support the import of outside images. If available, original i nterpretation can be found on the Media Tab in Chart Review, in Document V iewer, or as an image in QREADS. If a re-interpretation or overread is re quired please follow defined workflow. ?? Provider Not In System IMG CT PROCEDURES Performing Organization Address City/[facility]/ZIP Code Phon e Number IIMT IIMS NA CHEST 2 VIEWS PA AND LAT-Outside Chest Xray (08/22/2021 1:05 PM CDT) Specimen (Source) Anatomical Location Collection Method / Collectio n Time Received Time / Laterality Volume Narrative IIMT - 10/04/2021 3:20 PM CDT This order has been created and auto-finalized to support the import of outside images. If available, original i nterpretation can be found on the Media Tab in Chart Review, in Document V iewer, or as an image in QREADS. If a re-interpretation or overread is re quired please follow defined workflow. ?? Provider Not In System IMG DIAGNOSTIC IMAGING PROCE VIOLETES Performing Organization Address City/State/ZIP Code Phon e Number IIMS IIMS NA from Last 3 Months Insurance Payer Benefit Plan / Subscriber ID Effective Phone Address T ype Group Dates MEDICARE MEDICARE A AND [id number] 2011-Pr [address] [place], [place] [id number] BLUE CROSS BLUE BCBS [place] [id number] 2017-Pr [phone] [address] [address] Cost Share SHIELD BLUE COST 01 esent [phone] [facility] [id number] [facility] [id number] 2015-Pr OCC CLAIMS In demnity ADMINISTRATION [employer] [place] [address] [place] [address] Advance Directives For more information, please contact: [phone] Latest Code Status on File Code Status Date Activated Date Inactivated Comments Full Code 10/04/2021 1:36 AM 10/09/2021 4:46 PM Full Code: Discussed Care Teams Bung Driver Relationship Specialty Start Date End Date Elsewhere, Pcp PCP - General Internal Medicine 10/03/21
--- OUTSIDE RECORDS SUMMARY | 2021-11-18 09:35 | XMS_ITS | Encounter Summary ---
:1945 Author Organization [facility] Address [address] [place] [address] Care Team Providers Name Role Phone Elsewhere, Pcp Primary Care Provider Unavailable Encounter Details Date Type Department Care Team Description 10/11/2021 Orders Only [facility] (Primary Neurologic Surgery in [place]) [place], [place] P.A.-Dimitri., M.P.H. [address] [place] [address] [address] [place] [phone] (Wo rk) Social History Tobacco Use Types [...] Radiation Oncology Luiz Nagy M.D. 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
--- OUTSIDE RECORDS SUMMARY | 2021-11-18 09:35 | XMS_ITS | Encounter Summary ---
:1945 Author Organization [facility] Address [address] [place] [address] Care Team Providers Name Role Phone Elsewhere, Pcp Primary Care Provider Unavailable Encounter Details Date Type Department Care Team Description 10/14/2021 Clinical Communication Department of Oncology Cristobal, in [facility] yarely Jean M.D. [address] [facility] [address] [place] [phone] Social History Tobacco Use Types Packs/Day Years Used Date Smoking Tobacco: Former Smokeless Tobacco: Never Alcohol Use Standard Drinks/Week Comments Defer 0 (1 standard drink = 0.6 oz pure alcoho l) Sex Assigned at Date Recorded Not on file documented as of this encounter Miscellaneous Notes Telephone Encounter - Lee Ann Rankin - 10/14/2021 2:30 PM CDT ----- Message from Miranda Jain M.D. sent at 10/14/2021 2:15 PM CDT ----- [facility], might have to ask the patient where he had treatment for lung cancer) with medical oncology office notes and pathology from 2019 (right lowerlobectomy). Let me know if we have those already and I do not see them. Thank you! documented in this encounter Plan of Treatment Upcoming Encounters Date Type Specialty Care Team Description 11/18/2021 Appointment Radiation Oncology Luiz Nagy M.D. [address] [place], [place] [phone] (Wo rk) documented as of this encounter Visit Diagnoses Not on filedocumented in this encounter Care Teams Precision Grinder External Relationship Specialty Start Date End Date Elsewhere, Pcp PCP - General Internal Medicine 10/03/21 documented as of this encounter
--- OUTSIDE RECORDS SUMMARY | 2021-11-18 09:35 | XMS_ITS | Encounter Summary ---
:1945 Author Organization [facility] Address [address] [place] [address] Care Team Providers Name Role Phone Elsewhere, Pcp Primary Care Provider Unavailable Reason for Visit Reason Comments Medication Problem Encounter Details Date Type Department Care Team Description 10/25/2021 Nurse Triage Department of [facility] Pratima Joiner, Medication Problem Medicine, [facility], in [place], [facility] [address] [place], [place] [address] [place] [address] [place] [address] [phone] Social History Tobacco Use Types Packs/Day Years Used Date Smoking Tobacco: Former Smokeless Tobacco: Never Alcohol Use Standard Drinks/Week Comments Defer 0 (1 standard drink = 0.6 oz pure alcoho l) Sex Assigned at Date Recorded Not on file documented as of this encounter Miscellaneous Notes Telephone Encounter - Pratima Joiner, R.N. - 10/25/2021 11:09 AM CDT Chief Complaint / Reason for Call Patient is a 76 y.o. male calling regarding Medication Problem. Assessment Concern: Patient was in ED this morning, he was sent a new prescription to the pharmacy, Adrianne states pharmacy does not have prescription. EMR shows that prescription has been sent. The recommended disposition is Home Care. fuel cell technician states they do not have the prescription, their system will send a notification that the prescription has been receive when it has not been received. Transcribed prescription and resent to [facility]. Contacted Adrianne and informed her prescription has been resent. Advised her to call back if they continue to have trouble receiving prescription. Adrianne verbalizes understanding. Reason for Disposition [1] Prescription prescribed recently is not at pharmacy AND [2] triager has access to patient's EMRAND [3] prescription is recorded in the EMR Protocols used: Medication Refill and Renewal [id number] Care Advice Patient/Caregiver understands and will follow care advice?: Yes, able to teach back CALL BACK IF: * You have more questions or concerns * You become worse CARE ADVICE given per Medication Refill and Renewal Call (Adult) guideline. documented in this encounter Plan of Treatment Upcoming Encounters Date Type Specialty Care Team Description 11/18/2021 Appointment Radiation Oncology Luiz Nagy M.D. [address] [place] [phone] (Wo rk) documented as of this encounter Visit Diagnoses Not on filedocumented in this encounter Care Teams Service Delivery Manager Relationship Specialty Start Date End Date Elsewhere, Pcp PCP - General Internal Medicine 10/03/21 documented as of this encounter
--- OUTSIDE RECORDS SUMMARY | 2021-11-18 09:35 | XMS_ITS | Encounter Summary ---
:1945 Author Organization [facility] Address [address] [place] [id number] Care Team Providers Name Role Phone Elsewhere, Pcp Primary Care Provider Unavailable Reason for Visit Reason Comments Altered Mental Status Encounter Details Date Type Department Care Team Description 10/03/2021 - Hospital Encounter [facility] London Ng M.D. [address] [place] [address] [phone] Mass Brain (Primary Dx); 10/09/2021 [facility] Ashley Wiley, B.Ch. [address] [place] [address] [phone] Decline Functional Status [R53.81 (ICD-1 0-CM)]; [facility], Bebeto Enamorado M.D., Ph.D. [address] [place] [phone] Mass Brain [facility], Ninth Floor [address] [place] [phone] Social History Tobacco Use Types Packs/Day Years Used Date Smoking Tobacco: Former Smokeless Tobacco: Never Tobacco Cessation: Counseling Given: Not Answered Alcohol Use Standard Drinks/Week Comments Defer 0 (1 standard drink = 0.6 oz pure alcoho l) Sex Assigned at Date Recorded Not on file documented as of this encounter Last Filed Vital Signs Vital Sign Reading Time Taken Comments Blood Pressure 134/64 10/09/2021 2:20 PM CDT Pulse 63 10/09/2021 2:20 PM CDT Temperature 36.6 ??C (97.9 ??F) 10/09/2021 2:20 PM CDT Respiratory Rate 14 10/09/2021 2:20 PM CDT Oxygen Saturation 97% 10/09/2021 2:20 PM CDT Inhaled Oxygen Concentration - - Weight 84 kg (185 lb 3 oz) 10/09/2021 1:05 PM CDT Height 172.7 cm (5' 8) 10/04/2021 1:00 AM CDT Body Mass Index 28.16 10/04/2021 1:00 AM CDT documented in this encounter Discharge Summaries Pratima Kellogg M.D., Ph.D. - 10/09/2021 5:26 AM CDT DISCHARGE SUMMARY BRIEF OVERVIEW Hospital: [facility] Discharge Provider: Bebeto Jackson M.D. Primary Team: [facility] Neurologic Surgery - Chief C Primary Care Providers: Elsewhere, Pcp (General) No address on file Primary Care Provider Phone Number: None Primary Care Provider Fax Number: None Other Providers: None Admission Date: 10/03/2021 Discharge Date: 10/09/2021 PRINCIPAL DIAGNOSIS Mass Brain SECONDARY DIAGNOSES Principal Problem: Mass Brain Resolved Problems: * No resolved hospital problems. * Surgery Information This Encounter Past Procedures (10/09/2020 to Today) Date Procedures Providers Location 10/07/2021 LEFT frontal craniotomy for tumor resection, [facility]. Bebeto Jackson M.D., Ph.D.Manny Cordova M.D.Pratima Kellogg M.D., Ph.D. [facility] ROMB OR DISCHARGE DISPOSITION Home or Self Care [1] ACTIVE ISSUES REQUIRING FOLLOW UP Wound Care The surgical wound should be kept clean. This is best accomplished by letting shower water run across it. The wound should not be directly rubbed or scrubbed for a period of at least one month. The wound should not be immersed in water (i.e. hot tub, bath tub, swimming, etc.) for a period of six to eight weeks. Incision: The patient has a surgical incision, and should monitor for signs and symptoms of infection which include, but are not limited to, redness at the site of the incision, purulent drainage from the incision, separation of the wound edges, nausea, vomiting, general malaise, fevers greater than 101.5 degrees Fahrenheit, and chills. If these occur in combination or if there is gross purulence coming from the wound, the patient should seek medical attention. [place]: Your incision has been closed with olga. Olga should be removed 14 days after surgery. You may return to [facility] to have your olga removed, or you may schedule an appointment withyo primary care provider to have this done. No specific issues need to be addressed 14 days out from surgery, unless something develops that you have questions about. Routinely, nurses will remove the olga. You may have questions or concerns that fall in to the following categories/scenarios: 1. Neurosurgery Follow-Up 2. Emergent Clinical Issue Requiring Immediate Attention 3. Routine Clinical Questions 4. Medication Refills 5. Non-Neurosurgery Follow-Up Please address each of these issues using the following approach (note: this approach may not cover every possible scenario you could encounter and in the event of a medical emergency you should call 11-10-7): 1. Neurosurgery Follow-Up: Follow-up appointments will be scheduled as discussed with Chief C or his service. If indicated, this will take place with Chief C or his team. We will arrange this for you, and we will reach out with the exact date and time once your appointment has been scheduled. Should follow-up imaging be needed,it will be scheduled to occur prior to your visit with us. If you have any questions and/or need to change an appointment, please call the learning coordinator, who can be reached at [phone]. 2. Emergent Clinical Issue: For routine clinical questions, please address as stated above during regular business hours (Sunday-Sunday, 8am-5pm). For emergent concerns during regular business hours please call the [facility] Mail Distribution Clerk at [phone] and ask to speak to Chief 's Neurosurgery Service; the calender operator will connect you with one of our neurosurgery providers at the hospital. If you have an emergent issue during the evening or weekend hours, please call the [facility] Mail Distribution Clerk at [phone] and ask to speak to Chief 's Neurosurgery Service; the calender operator will connect you emergently to a physician on the neurosurgery team who is taking call from home. 3. Routine clinical questions and/or 4. Medication refills: For routine clinical questions (questions that can be answered within 24 hours) the preferred methodof communication is the [facility] Patient Portal. Questions for Chief C's service and/or medication refills would be best asked through the portal. If you do not have access to the portal, you may call the neurosurgery office directly at [phone] during normal business hours for any questions orconcerns. 5. Non-Neurosurgery Follow-Up: Please follow up with your primary care provider within one week of discharge to discuss your recenthospitalization. Take a copy of this dismissal summary to your appointment(s). Please resume your home medications as specified in your discharge summary medication list. Medications that should be held, discontinued, and/or modified will be specified. OUTPATIENT FOLLOW UP For appointment details refer to your Patient Appointment Guide. TEST RESULTS PENDING AT DISCHARGE Pending Labs Order Current Status Surgical Pathology, Frozen Lab In process DETAILS OF HOSPITAL STAY REASON FOR ADMISSION Mass Brain HOSPITAL COURSE Mr. Crow Orellana is a 76 y.o. male with medical comorbidities significant for lung cancer (possibly adenocarcinoma, [facility]; diagnosed in 2019, s/p RLL surgery, and chemotherapy, uncertain agents), follicular lymphoma (dx 2017, unknown chemo; diagnosed when lymphad enopathy found on screen for AAA), COPD, former smoking, atrial fibrillation on Eliquis, hyperlipidemia who presents for evaluation of language concerns found to have a tumor with significant associated edema an outside ED. reports that over the past 2 weeks, patient has been more fatigued/sleepy, confused, and speaking in shorter sentences. The morning of 10/03, he was at the store with his and he bought the wrong item. Due to her ongoing concerns, she brought him to an ED in [place]. In the ED, vitals were notable for a BP max of 179/68, intermittent aFib (rate around 70s). Labs were unremarkable. CT head show a probably mass in the left frontal lobe with associated vasogenic edema. He was transferred to [facility] for evaluation in the ED. He was admitted to the general neurology service for further evaluation and management. 10/04/2021 CT chest abdomen pelvis showed ill-defined hazy mesentery in the central abdomen with a few mildly enlarged lymph nodes or soft tissue nodules. Indeterminate mildly enlarged left iliac lymph node. Indeterminate 7 mm sclerotic lesion in the right iliac bone. No findings of malignancy in the chest. The reticular and groundglass opacities in both lungs have significantly improved since 08/15/2020 and were likely infectious or infl ammatory. 10/04/2021 brain MRI showed 4.2 x 2.9 x 3.6 cm (AP x TV x CC) peripherally enhancing, centrally necrotic and diffusion restricting left frontal lobe mass with increased intralesional rCBV and surrounding vasogenic edema with 8 mm of rightward midline shift, subfalcine herniation, and generalized left frontal lobe sulcal effacement. He was taken to the operative room 10/07/[address] Jackson and Dr. Cordova for the procedure listed above. The intraoperative as well as the immediate postoperative course were uncomplicated. He was transferred from the PACU to the Neurosciences ICU. He did well in the ICU and was transferred to the general Neurosurgical floor the following day. Post-operative MRI was obtained to serve as a baseline against which future imaging would be compared, and it demonstrated gross-total resection. Occupational therapy and physical therapy were consulted for assistance with mobilization and physical therapy, and the physical medicine and rehabilitation team was consulted to determine candidacy for inpatient rehabilitation. He had an overall uneventful recovery. Shortly after surgery, he was ambulating with minimal assistance, voiding independently, and tolerating an oral diet. He had optimal pain control on oral medications. His incision remained clean and intact. After meeting dismissal criteria and at the recommendations of PT/OT, he was discharged home with intermittent supervision and family support. Clear return precautions were provided, and specific dismissal instructions were reviewed. All appropriate follow-up appointments and/or imaging were scheduled. CONSULTS ORDERED DURING THIS ADMISSION IP CONSULT TO NEUROLOGY IP CONSULT TO CARE MANAGEMENT IP CONSULT TO PHYSICAL MEDICINE & REHABILITATION IP CONSULT TO NEUROLOGICAL SURGERY IP CONSULT TO ONCOLOGY CONDITION AT DISCHARGE stable Discharge instructions were provided to the patient and caregiver(s). documented in this encounter Discharge Instructions Discharge InstructionsKetty Galindo - 10/04/2021 7:28 AM CDT You were discharged from the General Neurology Service. Please Identify this service name if you call with questions after your hospitalization. Discharge Instr - Kat Tom O.T. - 10/09/2021 12:44 PM CDT Occupational Therapy Discharge Summary MOBILITY RESTRICTIONS/PRECAUTIONS: Other Precautions: Fall risk, seizure, cognition CURRENT FUNCTIONAL STATUS: Patient is currently impulsive and has difficulty with orientation, sequencing, and word finding. Patient requires 24 hour supervision for safety cues and problem-solving. Grooming Grooming Level of Assistance: Supervision/Set-up Grooming Location: Standing at sink Grooming Comments: Verbal cues for safety and problem-solving. Toileting Toileting Level of Assistance: Supervision/Set-up Lower Body Dressing LE Dressing Level of Assistance: Supervision/Set-up LE Dressing Comments: Cues to don left leg first secondary to weakness at the hip and cues to sit when dressing. Toilet Transfers # of Assistants: 1 Level of Assistance: Supervision/set-up Transfer Equipment: Grab bars Transfer Approach: Ambulating RECOMMENDATIONS: Discharge Therapy Needs - OT: Ongoing skilled occupational therapy Level of Care Needed - OT: Assistance with meal preparation, Assistance with associate financial advisor, Assistance with transportation, Assistance with housekeeping, Assistance with shopping, Cognitive assistance needed, Assistance with toilet/shower transfers, Assistance with medication set up/administration, Assistance with showering/bathing, Assistance with dressing Discharge information provided on 10/09/2021 Contact information: [facility], [address], AttachmentsThe following attachments cannot be sent through Care Everywhere. Acetaminophen (By mouth) ([place])Dexamethasone (By mouth) ([place]) Levetiracetam (By mouth) ([place])documented in this encounter Medications at Time of Discharge Medication Sig Dispensed Refills Start Date End Date acetaminophen (TYLENOL) Take 2 tablets 0 10/10/19 22 500 mg tablet (1,000 mg total) by mouth every 6 (six) hours as needed for pain for up to 7 doses. apixaban (ELIQUIS) 5 mg Take 1 tablet (5 mg 60 tablet 0 07/2021 tablet total) by mouth 2 (two) times a day. May restart 1 week after surgery atorvastatin (LIPITOR) 20 Take 0.5 tablets by 0 0 06/07/2021 mg tablet mouth at bedtime. cholecalciferol, vitamin Take 25 mcg by 0 D3, 25 mcg (1,000 Unit) mouth daily. tablet dilTIAZem (TIAZAC/TAZTIA Take 180 mg by 0 XT) 180 mg ER capsule mouth daily. famotidine (PEPCID) 20 mg Take 20 mg by mouth 0 0 04/18/2021 tablet 2 (two) times a day. folic acid 1 mg tablet Take 1 mg by mouth 0 03/21 daily. levETIRAcetam (KEPPRA) 500 Take 1 tablet (500 12 tablet 0 0 10/09/2021 mg tablet mg total) by mouth 2 (two) times a day for 12 doses. magnesium oxide 400 mg Take 400 mg by 0 2 magnesium tablet mouth daily. multivitamin capsule Take 1 tablet by 0 6 mouth daily. amoxicillin (for_AMOXIL) Take 500 mg by 0 500 mg capsule mouth as needed (4 tabs one hr prior to dental work). dexAMETHasone (DECADRON) 1 Take 3 tablets (3 48 tablet 0 10/15/2021 mg tablet mg total) by mouth 4 (four) times a day for 2 days, THEN 2 tablets (2 mg total) 4 (four) times a day for 2 days, THEN 1 tablet (1 mg total) 4 (four) times a day for 2 days. documented as of this encounter Progress Notes Kat Haq O.T. - 10/09/2021 12:38 PM CDT Occupational Therapy Acute Hospital Inpatient Progress Note SUBJECTIVE Patient's Name: Crow Orellana Reason for Referral: OT Brain rehab Medical Diagnosis: 1. Mass Brain Active 2. Decline Functional Status [R53.81 (ICD-10-CM)] 3. Mass Brain History of Present Illness: He is a 76-year-old right-handed man with a background medical history of lung cancer diagnosed in 2019 s/p right lower lobe surgery, and chemotherapy, follicular lymphoma, COPD, ex-smoker, atrial fibrillation on apixaban, hyperlipidemia who presented with new onset language difficulties and confusion. Over the last 2 weeks he had had increasing confusion; a CT head showeda left frontal brain mass w/ resection on 10/07/21. Onset Date: 10/03/21 Patient/Caregiver Goals: Pt goal to return home. Patient Comments: Agreeable to OT Precautions Other Precautions: Fall risk, seizure, cognition Fall Risk (65 and older) Fall in the last 12 months: No Are you fearful of falling?: No OBJECTIVE Grooming Grooming Location: Standing at sink Grooming Delivery: Assessed Grooming Level of Assistance: Supervision/Set-up Grooming Comments: Verbal cues for safety and problem-solving. Bathing Bathing Location: Seated in shower Bathing Delivery: Assessed Bathing Adaptive Equipment: Hand-held shower head Body Parts Included in Task: Chest, Right arm, Left arm, Abdomen,Perineal area, Buttocks, Right upper leg, Left upper leg, Right lower leg, Left lower leg Bathing Level of Assistance: Minimal assistance Bathing Comments: providing minimal assistance for washing and drying. UE Dressing UE Dressing Delivery: Assessed UE Dressing Items Included: roll over loader shirt UE Dressing Level of Assistance: Supervision/Set-up UE Dressing Location: Standing UE Dressing Comments: Required cues to sit when dressing. Patient ignored prompts. LE Dressing LE Dressing Location: Chair LE Dressing Delivery: Assessed, Facilitated LE Dressing Items Included: Shoes, Pants, Underwear/Adult incontinence briefs LE Dressing Level of Assistance: Supervision/Set-up LE Dressing Comments: Cues to don left leg first secondary to weakness at the hip and cues to sit when dressing. Toileting Toileting Location: Toilet Toileting Delivery: Assessed Toileting Level of Assistance: Supervision/Set-up Bed, Chair, Wheelchair Transfers # of Assistants: 1 Transfer Surface: Chair Transfer Approach: To and from, Ambulating Transfer Equipment: No device Level of Assistance: Supervision/ Set-up Assessment/Delivery: Assessed, Facilitated Comments: Cues for safety Toilet Transfers # of Assistants: 1 Transfer Surface: Toilet Transfer Approach: Ambulating Transfer Equipment: Grab bars Level of Assistance: Supervision/set-up Assessment/Delivery: Assessed, Facilitated Toilet Transfers Comments: Cues for safety. Patient/Family Education: Patient and family educated on recommendations for use of built in shower seat at home and grab bars for the shower. The patient and family were instructed to provide 24 hour supervision for all ADL tasks to assist with safety and problem-solving. Patient is impulsive and hasdifficulty with orientation, sequencing, and word finding. At the end of today's therapy session patient was left seated in bedside chair with an appropriate call light within reach. Patient's needs and questions addressed during today's session. Contact monitoring: PPE used during therapy: Therapist was wearing the following PPE throughout entire session: surgicalmask and eye protection Patient was wearing a mask during therapy session: no Assessment The patient is discharging home today. The patient and family were instructed to provide 24 hour supervision with all ADL's for safety and problem-solving. Family instructed to use built in shower bench and grab bars at home for showering. Family verbalized understanding of recommendations. Recommend orders for outpatient Occupational Therapy. Barriers to Discharge Home: Other (Comment) (cognition) Comorbid Conditions: Cancer, Cardiopulmonary disease Personal Factors: Communication deficit Discharge Therapy Needs - OT: Ongoing skilled occupational therapy Level of Care Needed - OT: Assistance with meal preparation, Assistance with associate financial advisor, Assistance with transportation, Assistance with housekeeping, Assistance with shopping, Cognitive assistance needed, Assistance with toilet/shower transfers, Assistance with medication set up/administration, Assistance with showering/bathing, Assistance with dressing Skilled therapy can include occupational therapy provided by home health, outpatient clinic, or a post-acute facility. The location of these services is determined by the patient's care team in partnership with patient/family. Functional Goals and Timeframes: OT Goal #1: Patient will participate in cognitive screen to promote safety during ADL and IADL tasksand for discharge recommendations. OT Goal #1 Status: Achieved OT Goal #2: Pt will demonstrate use of 3 cognitive strategies to optimize safety at time of discharge. OT Goal #2 Date: (10/09 Requires verbal cues and prompts.) OT Goal #2 Status: Progressing Progress: Progressing toward goals Plan Patient agrees with the plan of care and goals. Treatment Plan: OT Frequency: 3 times per week OT Amount: 1 visit per day OT Inpatient Duration : Until goals are met or hospital discharge Plan: Continue with current plan Treatment interventions may include: Treatment Interventions: Cognitive skills training, Self-care/home management, Therapeutic functional activity, Neuromuscular re-education, Therapeutic exercise Time Spent with Patient Therapeutic Interventions Home Management Training (min): 23 min Time Tracking Total Timed Units (min): 23 min Total Treatment Time (min): 23 min Kat Haq O.T. Kaila Candelaria PharmLeny, R.Ph. - 10/08/2021 12:24 PM CDT Clinical Pharmacist Progress Note Crow Orellana is a 76 y.o. male who was admitted to on 10/03/2021 [id number]. Procedures (this admission) 10/07/21 L frontal craniotomy tumor resection PMH - lung cancer diagnosed in 2019 s/p right lower lobe resection and adjuvant chemotherapy, follicular lymphoma diagnosed in 2007 s/p chemotherapy, COPD, previous tobacco use, HLD and atrial fibrillation on apixaban (last dose 10/03) Pharmacotherapy Plan: S/p tumor resection: Pain regimen per NSGY; plan 7 days of levetiracetam and 8 day dexamethasone taper AF: home diltiazem resumed; holding apixaban post-operatively Prophylaxis: SCDs - defer to NSGY on SQH; famotidine (home med), +BR Home scheduled meds on hold: apixaban Electronically signed by: Kaila Candelaria Pharm.D., R.Ph. 10/08/21 12:25 PM CDT Manny Cordova M.D. - 10/08/2021 7:46 AM CDT This is a chief resident supervisory note; please see the norma resident documentation for further details regarding the history, physical exam, and preliminary plan of care. I agree with their assessment and plan, except as documented below. Interval History: Postop day 1 status post left frontal craniotomy for resection of tumor Per nursing patient was noted to have a few episodes of confusion overnight Patient has been in atrial fibrillation with RVR with rates in the 120s No blurry vision or double vision No nausea or vomiting Head wrap remains in place Vitals: 10/08/21 0300 10/08/21 0400 10/08/21 0500 10/08/21 0600 BP: 119/66 133/57 123/70 108/68 Patient Position: Pulse: 78 (!) 111 97 84 Heart Rate: (!) 111 (!) 111 104 (!) 121 Temp: 36.7 ??C Resp: 12 15 13 Height: Weight: SpO2: 95% 94% 95% 92% TempSrc: Oral Pain Score: 0 - No pain Exam: Awake, alert, oriented x3, PERRL, EOMI, follows commands in all 4 extremities Diagnostics: I have reviewed the pertinent imaging and findings as documented below. Assessment: #1 Mass Brain Mr. Orellana is a 76-year-old gentleman past medical history most notable for metastatic adenocarcinoma who is now postoperative day 1 status post left frontal craniotomy for resection of tumor. Overall, the patient seems to be doing well. We will obtain postoperative day 1 MRI brain with and without contrast to assess the extent of resection as well as to establish postoperative baseline. Systolic blood pressure goal less than 160. We will continue Keppra for 7 days postop. Patient will likely stay in the unit for an additional 24 hours given his atrial fibrillation with RVR. We will ensure that the patient receives his home cardiac medications and if needed consult Neuro Critical Care. We will continue to hold his home Apixiban for 7 days post-op. Will mobilize with physical therapy and occupational therapy. Further, we will consult speech therapy for their recommendations. If you have any questions or concerns please contact; Neurosurgery Chief C, [phone]. AT Pratima Kellogg M.D., Ph.D. - 10/08/2021 5:28 AM CDT Brief Summary: Crow Orellana is a 76 y.o. male with PMHx significant for lung cancer diagnosed in 2019 s/p right lower lobe resection and adjuvant chemotherapy, follicular lymphoma diagnosed in 2007 s/p chemotherapy, COPD, previous tobacco use, HLD and atrial fibrillation on apixaban (last dose 10/03) who presented to outside ED for 2-3 weeks of cognitive changes and speech difficulties [facility] revealed left frontal mass with associated vasogenic edema, mass effect, and 8 mm rightward shift. Interval Events: - POD#1 s/p uncomplicated left frontal craniotomy and tumor resection; prelim path: high-grade carcinoma - Afib with RVR overnight, HR to 110s, asymptomatic Focused Neuro Exam: Alert and oriented to person and year, but with disorganized speech and rumination on incorrect answer with place. Pupils equal and reactive bilaterally. Mild left eyelid ptosis. Following commands andantigravity in bilateral upper and lower extremities with slight drift in right lower>upper extremity without drifting to bed. Head wrap removed this morning; incision healing appropriately, c/d/i PLAN # New left brain mass s/p resection # Brain compression # Brain edema - SBP <160, PRN Labetalol and Hydralazine - MRI Postop day 1 - Perioperative ancef - Pain management: Tylenol, PO Oxy - 8 day Dexamethasone taper +PPI - Keppra 7 days (end 10/14) - Continue home atorvastatin, diltiazem, famotidine, mag-ox - Hold home apixaban - Diet: Advance as tolerated. - Bowel regimen: senna/docusate and miralax; PRN suppositories and enema. Last BM: 10/06 - VTE prophylaxis: SCDs; holding chemoprophylaxis for the time being - Will arrange for outpatient follow-up with medical and radiation oncology - PMR, PT/OT, E BUSINESS PROJECT MANAGER Location, level of care: PCU Full Code Please page the Neurosurgery Chief C service at [phone] with any questions or concerns. Pratima Kellogg M.D., Ph.D. Additional hospital problems and medical conditions present on admission: Patient Active Problem List Diagnosis Atrial Fibrillation (HCC) Osteoarthritis Lymphoma (HCC) Hyperlipidemia Nodules Pulmonary Multiple Follicular Lymphoma Unspecified Unspecified Site (HCC) Mass Brain Alfredo Shipley M.B., B.Ch. - 10/07/2021 6:32 PM CDT SUBJECTIVE SUBJECTIVE This is a supervisory note for the resident. I have personally interviewed the patient and performed thurman elements of the physical examination. I reviewed and discussed the history and management plan verbally with the patient and the resident; I agree with their documentation except where indicated in my note, please see their note for details. ASSESSMENT / PLAN ASSESSMENT / PLAN #1 Left frontal brain mass, likely metastatic in the setting of #4 and #5 #2 Right hemiparesis, mild #3 Aphasia #4 History of lung cancer s/p right lower lobe resection and prior chemotherapy (unclear details done at the [facility]) #5 History of follicular lymphoma #6 Atrial fibrillation on apixaban He was stable overnight and his speech has improved somewhat since he started the steroids. Plan -Biopsy and possibly resection of the left frontal lobe mass today and if undergoes resection will likely remain on the neurosurgical team. -Continue dexamethasone 4 mg twice daily -Continuing to hold anticoagulation and defer to Neurosurgery about timing of re-initiation of that The remainder is per the resident's note. Madeline Killian O.T., O.T.D. - 10/07/2021 12:42 PM CDT Occupational Therapy [facility] Inpatient Progress Note SUBJECTIVE Patient's Name: Crow Orellana Reason for Referral: OT evaluate and treatment; Brain consult Medical Diagnosis: 1. Mass Brain Active 2. Decline Functional Status [R53.81 (ICD-10-CM)] History of Present Illness: He is a 76-year-old right-handed man with a background medical history of lung cancer diagnosed in 2019 s/p right lower lobe surgery, and chemotherapy, follicular lymphoma, COPD, ex-smoker, atrial fibrillation on apixaban, hyperlipidemia who presented with new onset language difficulties and confusion. Over the last 2 weeks he had had increasing confusion; a CT head showeda left frontal brain mass. Onset Date: 10/03/21 Patient/Caregiver Goals: Pt goal to return home. Patient Comments: Pt up in bedside chair at approach, agreeable to OT intervention. Precautions Other Precautions: Fall risk, seizure, cognition Fall Risk (65 and older) Fall in the last 12 months: No Are you fearful of falling?: No OBJECTIVE Pain: No pain reported during therapy session. Vitals:Not indicated at this time Cognition Cognitive assessment method: Therapist observations Arousal/Alertness: Appropriate responses to stimuli Initiation: No difficulty with initiation Orientation: Other (Comment), Disoriented to time Following Commands: Follows all commands/directions without difficulty Memory: Impairments noted Long-term Memory/History Giving: Moderate Safety/Judgment: Impairments noted Self-monitoring/Self-correct Consistently: Mild Insight/Awareness of Deficits: Moderate Cognition Comments: Pt challenged with identifying orientation information this date. Pt able to report current month and year with visual cueing from white board in room. With minimal cueing, pt able to report name of current president, however unable to report previous president. Pt challenged with sequencing months of the year. Pt reported first 8 without cueing, however required cueing to state remainder. When challenged with going in reverse order, pt unabe to complete with accuracy with repeated attempts in forwards order. Pt challenged with counting in reverse order, counting from 20-1 with 2 errors noted in completion. Patient/Family Education: Education provided on recommendations for 02/10 supervision with discharge;would recommend reassessment after surgery At the end of today's therapy session patient was left seated in bedside chair with an appropriate call light within reach. Patient's needs and questions addressed during today's session. Contact monitoring: PPE used during therapy: Therapist was wearing the following PPE throughout entire session: surgicalmask and eye protection Patient was wearing a mask during therapy session: no Family member/caregiver present was wearing a mask: yes Additional Staff Present During Session: None Assessment Crow seen for skilled occupational therapy intervention this date addressing cognition. During session this date, pt challenged with orientation and sequencing information (numbers and months of theyear). Pt demonstrates continued deficits in sequencing, word finding, and orientation information at this time, minimally improved from previous session after initiation of steroids. Pt would benefit from further intervention after surgical intervention this date. Provided education to pt and spouse present on discharge recommendations based on current deficits with expressed understanding. All of the above and previously listed impairments (please see EMR/ initial OT evaluation for further detail)significantly impact pt ability to safely and independently complete activities of daily living and mobility. Patient continues to require skilled occupational therapy services to address listed deficits and to maximize safety and independence with ADLs, functional mobility, and home management tasks. Barriers to Discharge Home: Other (Comment) (cognition) Comorbid Conditions: Cancer, Cardiopulmonary disease Personal Factors: Communication deficit Discharge Therapy Needs - OT: Ongoing skilled occupational therapy Level of Care Needed - OT: Assistance with meal preparation, Assistance with associate financial advisor, Assistance with transportation, Assistance with housekeeping, Assistance with shopping, Cognitive assistance needed Skilled therapy can include occupational therapy provided by home health, outpatient clinic, or a post-acute facility. The location of these services is determined by the patient's care team in partnership with patient/family. Functional Goals and Timeframes: OT Goal #1: Patient will participate in cognitive screen to promote safety during ADL and IADL tasksand for discharge recommendations. OT Goal #1 Status: Achieved OT Goal #2: Pt will demonstrate use of 3 cognitive strategies to optimize safety at time of discharge. OT Goal #2 Status: Progressing Progress: Progressing toward goals Plan Patient agrees with the plan of care and goals. Treatment Plan: OT Frequency: 3 times per week OT Amount: 1 visit per day OT Inpatient Duration : Until goals are met or hospital discharge Plan: Continue with current plan OT Plan Comments: Next Session: Repeat cognitive screen post surgical intervention Treatment interventions may include: Treatment Interventions: Cognitive skills training, Self-care/home management, Therapeutic functional activity, Neuromuscular re-education, Therapeutic exercise Time Spent with Patient Therapeutic Interventions Cognitive Skills Training, Initial 15 min: 10 min Time Tracking Total Timed Units (min): 10 min Total Treatment Time (min): 10 min Vanessa Killian O.T., O.TLeny Aram Richardson M.D. - 10/07/2021 6:36 AM CDT GENERAL NEUROLOGY TRANSFER PROGRESS NOTE Summary: [place] 76M hx of lung cancer (possibly adenocarcinoma, receives care [facility] and not available; diagnosed in 2019, s/p RLL surgery, and chemotherapy, uncertain agents), follicular lymphoma (dx 2018, unknown chemo; diagnosed when lymphadenopathy found on screen for AAA), COPD, former smoking, atrial fi brillation on Eliquis, hyperlipidemia, p/w 4cmm left frontal brain mass with compression, vasogenic edema, subfalcine herniation, c/f metastatic lung cancer vs lymphoma or primary brain tumor. CT CAP (10/04)w/ hazy mesentery in the central abdomen, indeterminate 7mm sclerotic lesion in R iliac bone, no malignancy in the chest. Brain MRI (10/04) w/ 4.2 x 2.9 x 3.6 cm (AP x TV x CC) peripherally enhancing, centrally necrotic and diffusion restricting left frontal lobe mass with increased intralesional rCBV and surrounding vasogenic edema with 8 mm of rightward midline shift, subfalcine herniation, and g eneralized left frontal lobe sulcal effacement. Dexamethasone initiated on 10/05. Eliquis held and plan for neurosurgical intervention on 10/07 with biopsy and possible resection. SUBJECTIVE Naeon, feels well. No headache/nausea/vomiting/abdominal pain. No new sensation or weakness. Mild difficulty sleeping last night. OBJECTIVE Temperature: [36.3 ??C-36.8 ??C] 36.8 ??C Resp Rate: [15-16] 16 Blood Pressure: (132-157)/(64-92) 157/92 SpO2: [97 %] 97 % Pulse Rate: [84-90] 84 Physical Exam: Constitutional: well-developed, well-nourished, resting comfortably in bed Lungs: Breathing comfortably on room air. Clear to auscultation bilaterally. Cardiac: regular rate and rhythm Abdomen: Soft, non-tender, non-distended. Skin: No rash on exposed skin. Neurologic: Mental status: Alert and oriented to time, place and person Speech: Clear. Language: Mild aphasia. Paucity of speech, difficulty naming, intact repetition. Cranial nerves: PERRL, EOMI, visual guadalupe intact to confrontation, facial movements full and symmetric, sensation intact to light touch in the V1-V3 distributions, hearing intact to voice, tongue protrudes in midline, there is equal elevation of the soft palate, shoulder shrug is appropriate in strength. Motor: Mild right pronator drift and left index finger satelliting around right index finger. Bilateral upper and lower extremity strength evaluated including: (R, L) deltoids (0,0), biceps (0,0), triceps (0,0), wrist extension (0,0), finger extension (0,0), interossei (0,0), iliopsoas (0,0), knee flexion (0,0), knee extension (0,0), ankle dorsiflexion (0,0), ankle plantarflexion (0,0), toe extension(0,0). Tone is normal in bilateral upper and lower extremities. Sensory: Sensation is intact to light touch of distal extremities bilaterally. Reflexes: biceps (0,0), triceps (0,0), brachioradialis (0,0), patellar (0,0) and Achilles (0,0). Plantar flexor responses are flexor-flexor. Coordination: Finger to nose and heel to butterfield are normal bilaterally. Gait: Ambulated unassisted. Diagnostics: I have reviewed the labs, diagnostics, and imaging from last 6 months. ASSESSMENT / PLAN Mr. Crow Orellana is a 76 y.o. male with medical comorbidities significant for lung cancer (possibly adenocarcinoma, receives care [facility] and not available; diagnosed in 2019, s/p RLL surgery, and chemotherapy, uncertain agents), follicular lymphoma (dx 2017, unknown chemo; diagnosed when lymphad enopathy found on screen for AAA), COPD, former smoking, atrial fibrillation on Eliquis, hyperlipidemia who is hospitalized on the general neurology service for workup and management of 4 cm left frontal brain mass with compression, vasogenic edema, subfalcine herniation concerning for metastatic lungcancer more likely than lymphoma or primary brain tumor. 10/04/2021 CT chest abdomen pelvis showed ill-defined hazy mesentery in the central abdomen with a few mildly enlarged lymph nodes or soft tissue nodules. Indeterminate mildly enlarged left iliac lymphnode. Indeterminate 7 mm sclerotic lesion in the right iliac bone. No findings of malignancy in the chest. 10/04/2021 brain MRI showed 4.2 x 2.9 x 3.6 cm (AP x TV x CC) peripherally enhancing, centrally necrotic and diffusion restricting left frontal lobe mass with increased intralesional rCBV and surrounding vasogenic edema with 8 mm of rightward midline shift, subfalcine herniation, and generalized left frontal lobe sulcal effacement Steroids initiated 10/05 and eliquis discontinued for nsgy procedure of L frontal lobe mass on 10/07. Plan for today: - continue dex 4mg bid, hold eliquis, npo overnight - plan for nsgy procedure of L frontal lobe mass on 10/07 (today). # 4 cm left frontal brain mass with compression, vasogenic edema, subfalcine herniation, likely metastatic lung cancer, less likely lymphoma or primary brain tumor # mild right flaccid hemiparesis # mild aphasia # mild confusion # h/o lung cancer s/p resection and chemotherapy # h/o follicular lymphoma -s/p IV dex 10 mg 1x, now PO dex 4 mg BID, ok per NSGY and medical oncology -neurosurgical consult for resection/biopsy planned Sunday -medical oncology consult for further oncological evaluation -PT/OT/E BUSINESS PROJECT MANAGER # atrial fibrillation on Eliquis # HLD # COPD # former smoker -hold home Eliquis for procedure -continue home atorvastatin, diltiazem, famotidine, vit D, folic acid, magnesium, and multivitamin Current activity/mobility: PAMP Level 4 (walks frequently) Diet: regular, NPO @ [facility] on Sunday Tubes/lines: Lines, Drains, and Airways Central venous catheter Duration Implanted Port Single Lumen 10/03/21 Permanent (tunneled, implanted) Right Chest Power injectable 3d 16h VTE prophylaxis: SCD's, hold Eliquis for procedure Code status: Full Code Surrogate Decision Maker: Spouse, Adrianne Disposition: Uncertain with expected discharge date Stable to discharge criteria (not met): Tests/procedures/consults Plan discussed with [facility] General Neurology Lock [place]ater, Dr. Shipley. Please page the [facility] General Neurology service pager at [phone] with any questions. Pratima Kellogg M.D., Ph.D. - 10/07/2021 6:13 AM CDT Brief Summary: Crow Orellana is a 76 y.o. male with PMHx significant for lung cancer diagnosed in 2019 s/p right lower lobe resection and adjuvant chemotherapy, follicular lymphoma diagnosed in 2007 s/p chemotherapy, COPD, previous tobacco use, HLD and atrial fibrillation on apixaban (last dose 10/03) who presented to outside ED for 2-3 weeks of cognitive changes and speech difficulties [facility] head revealed left frontal mass with associated vasogenic edema, mass effect, and 8 mm rightward shift. Interval Events: - POD#0 s/p uncomplicated left frontal craniotomy and tumor resection - Prelim path: high-grade carcinoma - Closed with olga, covered in head wrap Preoperative Exam: Alert and oriented to person and year, but with disorganized speech and rumination on incorrect answer with place. Pupils equal and reactive bilaterally. Mild left eyelid ptosis. Following commands andantigravity in bilateral upper and lower extremities with slight drift in right lower>upper extremity without drifting to bed. Postoperative Exam: Awake, groggy. Mild mixed aphasia. Following commands and antigravity in all four extremities left >right. PLAN # New left brain mass s/p resection # Brain compression # Brain edema - SBP <160, PRN Labetalol and Hydralazine - MRI Postop day 1 - Perioperative ancef - Pain management: Tylenol, PO Oxy - 8 day Dexamethasone taper - Keppra 7 days (end 10/14) - Continue home atorvastatin, diltiazem, famotidine, mag-ox - Hold home apixaban - Diet: Advance as tolerated. - Bowel regimen: senna/docusate and miralax; PRN suppositories and enema. Last BM: - VTE prophylaxis: SCDs; holding chemoprophylaxis for the time being - PMR, PT/OT, E BUSINESS PROJECT MANAGER Location, level of care: PCU Full Code Please page the Neurosurgery Chief C service at [phone] with any questions or concerns. Pratima Kellogg M.D., Ph.D. Additional hospital problems and medical conditions present on admission: Patient Active Problem List Diagnosis Atrial Fibrillation (HCC) Osteoarthritis Lymphoma (HCC) Hyperlipidemia Nodules Pulmonary Multiple Follicular Lymphoma Unspecified Unspecified Site (HCC) Mass Brain Aram Richardson M.D. - 10/06/2021 6:09 PM CDT GENERAL NEUROLOGY SERVICE PROGRESS NOTE SUBJECTIVE No acute events overnight. No pain. Interested in surgical resection. I have reviewed the current medication list. OBJECTIVE Temperature: [36.3 ??C-36.8 ??C] 36.3 ??C Resp Rate: [15-16] 15 Blood Pressure: (132-152)/(64-86) 132/64 SpO2: [97 %] 97 % Pulse Rate: [79-90] 90 Physical Exam: Constitutional: well-developed, well-nourished, resting comfortably in bed Lungs: Breathing comfortably on room air. Clear to auscultation bilaterally. Cardiac: regular rate and rhythm Abdomen: Soft, non-tender, non-distended. Skin: No rash on exposed skin. Neurologic: Mental status: Alert and oriented to time, place and person Speech: Clear. Language: Mild aphasia. Paucity of speech, difficulty naming, intact repetition. Cranial nerves: PERRL, EOMI, visual guadalupe intact to confrontation, facial movements full and symmetric, sensation intact to light touch in the V1-V3 distributions, hearing intact to voice, tongue protrudes in midline, there is equal elevation of the soft palate, shoulder shrug is appropriate in strength. Motor: Mild right pronator drift and left index finger satelliting around right index finger. Bilateral upper and lower extremity strength evaluated including: (R, L) deltoids (-1,0), biceps (0,0), triceps (0,0), wrist extension (0,0), finger extension (-1,0), interossei (-1,0), iliopsoas (0,0), knee flexion (0,0), knee extension (0,0), ankle dorsiflexion (-1,0), ankle plantarflexion (0,0), toe extension (0,0). Tone is normal in bilateral upper and lower extremities. Sensory: Sensation is intact to light touch of distal extremities bilaterally. Reflexes: biceps (0,0), triceps (0,0), brachioradialis (0,0), patellar (1,1) and Achilles (0,0). Plantar flexor responses are flexor-flexor. Coordination: Finger to nose and heel to butterfield are normal bilaterally. Gait: Ambulated unassisted. Diagnostics: I have reviewed the labs, diagnostics, and imaging from last 6 months. ASSESSMENT / PLAN Mr. Crow Orellana is a 76 y.o. male with medical comorbidities significant for lung cancer (possibly adenocarcinoma, receives care [facility] and not available; diagnosed in 2019, s/p RLL surgery, and chemotherapy, uncertain agents), follicular lymphoma (dx 2018, unknown chemo; diagnosed when lymphad enopathy found on screen for AAA), COPD, former smoking, atrial fibrillation on Eliquis, hyperlipidemia who is hospitalized on the general neurology service for workup and management of 4 cm left frontal brain mass with compression, vasogenic edema, subfalcine herniation concerning for metastatic lungcancer more likely than lymphoma or primary brain tumor. 10/04/2021 CT chest abdomen pelvis showed ill-defined hazy mesentery in the central abdomen with a few mildly enlarged lymph nodes or soft tissue nodules. Indeterminate mildly enlarged left iliac lymphnode. Indeterminate 7 mm sclerotic lesion in the right iliac bone. No findings of malignancy in the chest. 10/04/2021 brain MRI showed 4.2 x 2.9 x 3.6 cm (AP x TV x CC) peripherally enhancing, centrally necrotic and diffusion restricting left frontal lobe mass with increased intralesional rCBV and surrounding vasogenic edema with 8 mm of rightward midline shift, subfalcine herniation, and generalized left frontal lobe sulcal effacement Steroids initiated 10/05 and eliquis discontinued for nsgy procedure of L frontal lobe mass on 10/07. Plan for today: - continue dex 4mg bid, hold eliquis, npo overnight - plan for nsgy procedure of L frontal lobe mass on 10/07 (tomorrow). # 4 cm left frontal brain mass with compression, vasogenic edema, subfalcine herniation, likely metastatic lung cancer, less likely lymphoma or primary brain tumor # mild right flaccid hemiparesis # mild aphasia # mild confusion # h/o lung cancer s/p resection and chemotherapy # h/o follicular lymphoma -s/p IV dex 10 mg 1x, now PO dex 4 mg BID, ok per NSGY and medical oncology -neurosurgical consult for resection/biopsy planned Sunday -medical oncology consult for further oncological evaluation -PT/OT/E BUSINESS PROJECT MANAGER # atrial fibrillation on Eliquis # HLD # COPD # former smoker -hold home Eliquis for procedure -continue home atorvastatin, diltiazem, famotidine, vit D, folic acid, magnesium, and multivitamin Current activity/mobility: PAMP Level 4 (walks frequently) Diet: regular, NPO @ [facility] on Sunday Tubes/lines: Lines, Drains, and Airways Central venous catheter Duration Implanted Port Single Lumen 07/25/22 Permanent (tunneled, implanted) Right Chest Power injectable 3d 4h VTE prophylaxis: SCD's, hold Eliquis for procedure Code status: Full Code Surrogate Decision Maker: Spouse, Adrianne Disposition: Uncertain with expected discharge date Stable to discharge criteria (not met): Tests/procedures/consults Plan discussed with [facility] General Neurology [place], Dr. Shipley. Please page the [facility] General Neurology service pager at [phone] with any questions. Alfredo Shipley M.B., B.Ch. - 10/06/2021 1:02 PM CDT SUBJECTIVE SUBJECTIVE This is a supervisory note for the resident. I have personally interviewed the patient and performed thurman elements of the physical examination. I reviewed and discussed the history and management plan verbally with the patient and the resident; I agree with their documentation except where indicated in my note, please see their note for details. No new issues overnight. OBJECTIVE OBJECTIVE He was little bit improved today in terms of his aphasia and no longer had a right pronator drift. This is in the setting of a steroid bolus yesterday. ASSESSMENT / PLAN ASSESSMENT / PLAN #1 Left frontal brain mass, likely metastatic in the setting of #4 and #5 #2 Right hemiparesis, mild #3 Aphasia #4 History of lung cancer s/p right lower lobe resection and [facility] #5 History of follicular lymphoma #6 Atrial fibrillation on apixaban I appreciate the help of our neurosurgery colleagues. I agree with the plan to obtain biopsy and potentially resection of the left frontal lobe mass if it represents a solitary metastasis from lung cancer. If it is lymphoma there may be other treatments that would be used (radiation, chemotherapy etc.). We feel that lymphoma is less likely. We will go ahead and initiate steroids and by tomorrow morning the patient's anticoagulation should have worn off enough that he can go for surgery. We also appreciate the involvement of our speech pathology colleagues in assisting with his speech. Also, our medical oncology colleagues were able to weigh in and we appreciate their assistance. Plan -Biopsy and possibly resection of the left frontal lobe mass tomorrow and if undergoes resection will likely remain on the neurosurgical team. -Continue dexamethasone 4 mg twice daily -Continuing to hold anticoagulation and defer to Neurosurgery about timing of re-initiation of that The remainder is per the resident's note. Murali Bettencourt, R.Ph. - 10/06/2021 11:09 AM CDT Pharmacist Progress Note Reason for admission: L frontal mass PMH: lung cancer (possibly adenocarcinoma, diagnosed 2019, s/p RLL surgery, chemotherapy, uncertain agents), follicular lymphoma (dx 2017, unknown chemo; diagnosed when lymphadenopathy found on screen for AAA), COPD, former smoking, atrial fibrillation on Eliquis, HLD OBJECTIVE Home medications: Held: apixaban Changed: none Patient own medications: none Prophylaxis: home famotidine ASSESSMENT / PLAN CV: Hold apixaban (last dose 10/03). Neuro: Dexamethasone 4 mg bid. Changes to medications anticipated at discharge: TBD Murali Bettencourt, Klarissa.Ph. Brinda Lo P.A.-C. - 10/06/2021 6:55 AM CDT SUBJECTIVE AM rounds, denies MOE, continues with mild aphasia VITALS Temperature: [36.4 ??C-36.8 ??C] 36.8 ??C Resp Rate: [16] 16 Blood Pressure: (136-152)/(62-68) 152/68 SpO2: [97 %-98 %] 97 % Pulse Rate: [72-79] 79 I&O Intake/Output Summary (Last 24 hours) at 10/06/2021 0655 Last data filed at 10/05/2021 2100 Gross per 24 hour Intake 820 ml Output -- Net 820 ml PHYSICAL EXAM Neuro: Alert, mild aphasia, O x self, month, [place]; provided year of 2017. No UE drift. FC briskly x 4 with full strength, denies sensory abnormality. LABS Recent Results (from the past 24 hour(s)) Prothrombin Time (PT) Collection Time: 10/05/21 12:30 PM Result Value Prothrombin Time, P 11.9 INR 1.1 Apixaban, Anti-Xa, P Collection Time: 10/05/21 12:32 PM Result Value Apixaban, Anti-Xa, P 25 (H) Interpretation SEE COMMENT Cautions SEE COMMENT ANTICOAGULATION/ANTIPLATELET Current Anti-Coagulation and Anti-Platelet Medications Medication Dose Route Last Rate Last Admin PLAN #1 Mass Brain 76 y.o. male with PMHx significant for lung cancer diagnosed in 2019 s/p right lower lobe resection and adjuvant chemotherapy, follicular lymphoma diagnosed in 2007 s/p chemotherapy, COPD, previous tobacco use, HLD and atrial fibrillation on apixaban (last dose 10/03) who presented to outside ED for 2-3 weeks of cognitive changes and speech difficulties and transferred to [facility] Neurology service after CT head revealed left frontal mass with associated vasogenic edema, mass effect, and 8 mm rightward shift. Neuro stable Plan for OR tomorrow 10/07 for left frontal craniotomy Started on dex 4 mg BID last evening Stereotactic brain MRI perfusion with fiducials obtained 10/04 VTE Prophylaxis: holding apixaban NPO after midnight Anticipated Disposition: floor cares per Neurology, *please obtain LAURIE today Please page Neurosurgery Chief C [phone] with questions Alfredo Shipley M.B., B.Ch. - 10/05/2021 1:20 PM CDT SUBJECTIVE SUBJECTIVE This is a supervisory note for the resident. I have personally interviewed the patient and performed thurman elements of the physical examination. I reviewed and discussed the history and management plan verbally with the patient and the resident; I agree with their documentation except where indicated in my note, please see their note for details. No new issues overnight. OBJECTIVE OBJECTIVE He was awake and alert. The remainder of the exam is per the resident's note. ASSESSMENT / PLAN ASSESSMENT / PLAN #1 Left frontal brain mass, likely metastatic in the setting of #4 and #5 #2 Right hemiparesis, mild #3 Aphasia #4 History of lung cancer s/p right lower lobe resection and prior [facility] #5 History of follicular lymphoma #6 Atrial fibrillation on apixaban I appreciate the help of our neurosurgery colleagues. I agree with the plan to obtain biopsy and potentially resection of the left frontal lobe mass if it represents a solitary metastasis from lung cancer. If it is lymphoma there may be other treatments that would be used (radiation, chemotherapy etc.. We feel that lymphoma is less likely. We will go ahead and initiate steroids and by tomorrow morning the patient's anticoagulation should have worn off enough that he can go for surgery. We also appreciate the involvement of our speech pathology colleagues in assisting with his speech. Also, our medical oncology colleagues were able to weigh in and we appreciate their assistance. The remainder is per the resident's note. Madeline Killian O.T., O.T.D. - 10/05/2021 1:01 PM CDT Occupational Therapy [facility] Inpatient Progress Note SUBJECTIVE Patient's Name: Crow Orellana Reason for Referral: OT evaluate and treatment; Brain consult Medical Diagnosis: 1. Mass Brain Active 2. Decline Functional Status [R53.81 (ICD-10-CM)] History of Present Illness: He is a 76-year-old right-handed man with a background medical history of lung cancer diagnosed in 2019 s/p right lower lobe surgery, and chemotherapy, follicular lymphoma, COPD, ex-smoker, atrial fibrillation on apixaban, hyperlipidemia who presented with new onset language difficulties and confusion. Over the last 2 weeks he had had increasing confusion; a CT head showeda left frontal brain mass. Onset Date: 10/03/21 Patient/Caregiver Goals: Pt goal to return home. Patient Comments: Pt up in bedside chair at [facility], agreeable to OT intervention. Precautions Other Precautions: Fall risk, seizure, cognition Fall Risk (65 and older) Fall in the last 12 months: No Are you fearful of falling?: No OBJECTIVE Pain: Pt reported no pain throughout therapy session. Vitals:Not indicated at this time Cognition Cognitive assessment method: Therapist observations, Cognitive screening results Arousal/Alertness: Appropriate responses to stimuli Initiation: No difficulty with initiation Orientation: Other (Comment), Disoriented to time (Patient first stated [place], able to self-correct. Patient reports October, therapist orientated patient to September) Following Commands: Follows all commands/directions without difficulty Memory: Impairments noted Long-term Memory/History Giving: Moderate Memory Comments: Patient unable to accurately recall home set-up or previous work history. Safety/Judgment: Impairments noted Self-monitoring/Self-correct Consistently: Mild Insight/Awareness of Deficits: Moderate Short Blessed Test Patient participated in the Short Blessed Test (SBT,) a screening tool used to assess orientation, memory and concentration. Patient scored 18/28. Higher scores suggest more areas for concern than lower scores. Results indicate 10 or more Impairment Consistent with Dementia (evaluate for dementing disorder). Therapeutic Functional Activity: [place] Test [place] Test is a symbol cancellation test that allows for a quantitative and qualitative assessment of visual inattention in the near extra personal space. If the patient has more than three omissions, then he/she is suspected of presenting with an attentional deficit. More severe deficits are suspected if more than six omissions occur. The patient's scanning strategy can be revealed by connecting thecircled bells according to the order in which they were circled. Normally, an organized scanning strategy is demonstrated by a vertical or horizontal pattern. Clients with a deficit in attention will demonstrate a disorganized scanning pattern. Total number of bells circled: 35 (Maximum of 35 bells within 264 distracters) Time taken to complete test (minutes): 4 minutes and 17 seconds Qualitative description of scanning pattern: Vertical Interpretation: Pt demonstrated use of organized scanning pattern during completion of test and was able to locate all bells on assessment without difficulty. Increased time required for completion, however good attention to task noted. Clock Drawing: Pt appropriately lelia clock with numbers and [place] placement. Noted incorrect hand placement for time, consistent with cognitive deficits present, however no visual deficits. Assessment was administered today with paper and pencil via standardized form. Patient/Family Education: Role of OT in acute care setting, results of cognitive and visual screening, areas for continued intervention At the end of today's therapy session patient was left seated in bedside chair with an appropriate call light within reach. Patient's needs and questions addressed during today's session. Contact monitoring: PPE used during therapy: Therapist was wearing the following PPE throughout entire session: surgicalmask and eye protection Patient was wearing a mask during therapy session: no Family member/caregiver present was wearing a mask: yes Additional Staff Present During Session: Jessica Parikh, OT Assessment Crow continues to make good progress during therapy session and remains motivated for intervention. During session this date, pt completed cognitive screening with use of Short Blessed Test. Pt scored a 18/28 indicating cognitive impairment. However, of note, pt does demonstrate word finding difficulties which could have impacted score. Also completed [place] Cancellation test due to pt demonstrating possible visual impairment with running into items on right side previous date. On assessment, pt utilized and organized scanning pattern and no omissions during completion indicating no visual deficit present at this time. Clock drawing completed with appropriate [place] and number placement, and incorrect time. At this time, pt continues to present below his baseline with deficits noted in cognition and would benefit from further intervention to address. All of the above and previously listed impairments (please see EMR/ initial OT evaluation for further detail) significantly impact pt ability to safely and independently complete activities of daily living and mobility. Patient continues to require skilled occupational therapy services to address listed deficits and to maximize safety and independence with ADLs, functional mobility, and home management tasks. Barriers to Discharge Home: Other (Comment) (cognition) Comorbid Conditions: Cancer, Cardiopulmonary disease Personal Factors: Communication deficit Discharge Therapy Needs - OT: Ongoing skilled occupational therapy Level of Care Needed - OT: Assistance with meal preparation, Assistance with associate financial advisor, Assistance with transportation, Assistance with housekeeping, Assistance with shopping, Cognitive assistance needed Skilled therapy can include occupational therapy provided by home health, outpatient clinic, or a post-acute facility. The location of these services is determined by the patient's care team in partnership with patient/family. Functional Goals and Timeframes: OT Goal #1: Patient will participate in cognitive screen to promote safety during ADL and IADL tasksand for discharge recommendations. OT Goal #1 Status: Achieved OT Goal #2: Pt will demonstrate use of 3 cognitive strategies to optimize safety at time of discharge. OT Goal #2 Status: Progressing Progress: Progressing toward goals Plan Patient agrees with the plan of care and goals. Treatment Plan: OT Frequency: 3 times per week OT Amount: 1 visit per day OT Inpatient Duration : Until goals are met or hospital discharge Plan: Continue with current plan Treatment interventions may include: Treatment Interventions: Cognitive skills training, Self-care/home management, Therapeutic functional activity, Neuromuscular re-education, Therapeutic exercise Time Spent with Patient Therapeutic Interventions Cognitive Skills Training, Initial 15 min: 7 min Therapeutic Activity (min): 13 min Time Tracking Total Timed Units (min): 20 min Total Treatment Time (min): 20 min Vanessa Killian O.T., O.TDomenica. Murali Bettencourt, R.Ph. - 10/05/2021 11:54 AM CDT Pharmacist Progress Note Reason for admission: L frontal mass PMH: lung cancer (possibly adenocarcinoma, diagnosed 2019, s/p RLL surgery, chemotherapy, uncertain agents), follicular lymphoma (dx 2017, unknown chemo; diagnosed when lymphadenopathy found on screen for AAA), COPD, former smoking, atrial fibrillation on Eliquis, HLD OBJECTIVE Home medications: Held: apixaban Changed: none Patient own medications: none Prophylaxis: home famotidine ASSESSMENT / PLAN CV: Hold apixaban (last dose 10/03). Changes to medications anticipated at discharge: TBD Murali Bettencourt, R.Ph. Lee Bowman M.D. - 10/05/2021 7:30 AM CDT GENERAL NEUROLOGY SERVICE PROGRESS NOTE SUBJECTIVE No acute events overnight. No pain. Interested in surgical resection. I have reviewed the current medication list. OBJECTIVE Temperature: [36.4 ??C-36.6 ??C] 36.5 ??C Resp Rate: [16-18] 16 Blood Pressure: (120-154)/(57-70) 120/62 SpO2: [95 %-99 %] 99 % Pulse Rate: [69-79] 77 Physical Exam: Constitutional: well-developed, well-nourished, resting comfortably in bed Lungs: Breathing comfortably on room air. Clear to auscultation bilaterally. Cardiac: regular rate and rhythm Abdomen: Soft, non-tender, non-distended. Skin: No rash on exposed skin. Neurologic: Mental status: Alert and oriented to time, place and person Speech: Clear. Language: Mild aphasia. Paucity of speech, difficulty naming, intact repetition. Cranial nerves: PERRL, EOMI, visual guadalupe intact to confrontation, facial movements full and symmetric, sensation intact to light touch in the V1-V3 distributions, hearing intact to voice, tongue protrudes in midline, there is equal elevation of the soft palate, shoulder shrug is appropriate in strength. Motor: Mild right pronator drift and left index finger satelliting around right index finger. Bilateral upper and lower extremity strength evaluated including: (R, L) deltoids (-1,0), biceps (0,0), triceps (0,0), wrist extension (0,0), finger extension (-1,0), interossei (-1,0), iliopsoas (0,0), knee flexion (0,0), knee extension (0,0), ankle dorsiflexion (-1,0), ankle plantarflexion (0,0), toe extension (0,0). Tone is normal in bilateral upper and lower extremities. Sensory: Sensation is intact to light touch of distal extremities bilaterally. Reflexes: biceps (0,0), triceps (0,0), brachioradialis (0,0), patellar (1,1) and Achilles (0,0). Plantar flexor responses are flexor-flexor. Coordination: Finger to nose and heel to [place]field are normal bilaterally. Gait: Ambulated unassisted. Diagnostics: I have reviewed the labs, diagnostics, and imaging from last 6 months. ASSESSMENT / PLAN Mr. Crow Orellana is a 76 y.o. male with medical comorbidities significant for lung cancer (possibly adenocarcinoma[facility]; diagnosed in 2019, s/p RLL surgery, and chemotherapy, uncertain agents), follicular lymphoma (dx 2018, unknown chemo; diagnosed when lymphad enopathy found on screen for AAA), COPD, former smoking, atrial fibrillation on Eliquis, hyperlipidemia who is hospitalized on the general neurology service for workup and management of 4 cm left frontal brain mass with compression, vasogenic edema, subfalcine herniation concerning for metastatic lungcancer more likely than lymphoma or primary brain tumor. 10/04/2021 CT chest abdomen pelvis showed ill-defined hazy mesentery in the central abdomen with a few mildly enlarged lymph nodes or soft tissue nodules. Indeterminate mildly enlarged left iliac lymphnode. Indeterminate 7 mm sclerotic lesion in the right iliac bone. No findings of malignancy in the chest. 10/04/2021 brain MRI showed 4.2 x 2.9 x 3.6 cm (AP x TV x CC) peripherally enhancing, centrally necrotic and diffusion restricting left frontal lobe mass with increased intralesional rCBV and surrounding vasogenic edema with 8 mm of rightward midline shift, subfalcine herniation, and generalized left frontal lobe sulcal effacement Plan for today: -IV dex 10 mg once, then PO dex 4 mg BID, ok per NSGY and medical oncology -neurosurgical consult for resection/biopsy, held Eliquis -medical oncology consult for further oncological evaluation # 4 cm left frontal brain mass with compression, vasogenic edema, subfalcine herniation, likely metastatic lung cancer, less likely lymphoma or primary brain tumor # mild right flaccid hemiparesis # mild aphasia # mild confusion # h/o lung cancer s/p resection and chemotherapy # h/o follicular lymphoma -IV dex 10 mg once, then PO dex 4 mg BID, ok per NSGY and medical oncology -neurosurgical consult for resection/biopsy planned Sunday -consider steroids if delay in resection/biopsy -medical oncology consult for further oncological evaluation -leukemia/lymphoma phenotyping by flow cytometry -PT/OT/E BUSINESS PROJECT MANAGER # atrial fibrillation on Eliquis # HLD # COPD # former smoker -hold home Eliquis in case of procedure -continue home atorvastatin, diltiazem, famotidine, vit D, folic acid, magnesium, and multivitamin Current activity/mobility: PAMP Level 4 (walks frequently) Diet: regular, NPO @ [facility] on Sunday Tubes/lines: Lines, Drains, and Airways Central venous catheter Duration Implanted Port Single Lumen 10/03/21 Permanent (tunneled, implanted) Right Chest Power injectable 1d 18h VTE prophylaxis: SCD's, hold Eliquis in case of procedure Code status: Full Code Surrogate Decision Maker: Spouse, Adrianne Disposition: Uncertain with expected discharge date Stable to discharge criteria (not met): Tests/procedures/consults Plan discussed with [facility] General Neurology [place], Dr. Shipley. Please page the [facility] General Neurology service pager at [phone] with any questions. AT Pratima Kellogg M.D., Ph.D. - 10/05/2021 5:56 AM CDT Brief Summary: Crow Orellana is a 76 y.o. male with PMHx significant for lung cancer diagnosed in 2019 s/p right lower lobe resection and adjuvant chemotherapy, follicular lymphoma diagnosed in 2007 s/p chemotherapy, COPD, previous tobacco use, HLD and atrial fibrillation on apixaban (last dose 10/03) who presented to outside ED for 2-3 weeks of cognitive changes and speech difficulties [facility] revealed left frontal mass with associated vasogenic edema, mass effect, and 8 mm rightward shift. Interval Events: - No events overnight; remained hemodynamically and neurologically stable - MRI brain with peripherally enhancing intra-axial mass in left frontal lobe with central necrosis and associated vasogenic edema, sulcal effacement, rightward shift, and subfalcine herniation Exam: Alert and oriented to person, but not time or place. Pupils equal and reactive bilaterally. Face symmetric. Following commands and antigravity in bilateral upper and lower extremities without drift. PLAN # New left brain mass # Brain compression # Brain edema - Continue to hold apixaban for time being - NPO pending final surgical recommendations - All other cares per primary team Additional hospital problems and medical conditions present on admission: Patient Active Problem List Diagnosis Atrial Fibrillation (HCC) Osteoarthritis Lymphoma (HCC) Hyperlipidemia Nodules Pulmonary Multiple Follicular Lymphoma Unspecified Unspecified Site (HCC) Mass Brain Please page the Neurosurgery Chief C service at [phone] with any questions or concerns. Pratima Kellogg M.D., Ph.D. Manny Cordova M.D. - 10/04/2021 8:19 PM CDT This is a chief resident supervisory note; please see the PA documentation for further details regarding the history, physical exam, and preliminary plan of care. I agree with their assessment and plan, except as documented below. HPI: Per Kami's documentation Vitals: 10/04/21 1111 10/04/21 1635 10/04/21 2004 10/04/212004 BP: 137/63 152/66 154/57 Patient Position: Semi-recumbent Semi-recumbent Pulse: 79 75 69 Heart Rate: Temp: 36.5 ??C 36.4 ??C Resp: 18 16 Height: Weight: SpO2: 96% 97% TempSrc: Oral Oral Pain Score: 0 - No pain 0 - No pain 0 - No pain Exam: Word-finding difficulties, mildly aphasic, PERRL , EOMI, follows in all 4 extremities Diagnostics: I have reviewed the pertinent imaging and findings as documented below. Head CT demonstrates left frontal vasogenic edema that does not extend all the way through the cortex. There is rightward midline shift secondary to mass effect MRI brain with and without contrast demonstrates a centrally necrotic ring- enhancing lesion located in the left frontal lobe. There is significant mass effect with 8.6 mm of midline shift. Assessment: #1 Mass Brain #2 Brain Compression #3 Cerebral Edema #4 Aphasia #5 Atrial Fibrillation on Eliquis #6 History of Follicular Lymphoma Mr. Orellana is a 76-year-old gentleman medical history notable for atrial fibrillation on Eliquis,metastatic lung cancer, and follicular lymphoma who was admitted to the general neurology service for further evaluation and management of aphasia secondary to newly found left frontal mass. Neurosurgery was consulted for surgical recommendations regarding the left frontal mass. On exam, the patient is symptomatic with word-finding difficulties and mild aphasia however, pupils are equal round and reactive to light, extraocular movements grossly intact, and he follows commands in all 4 extremities.. On imaging, there is a ring-enhancing left frontal lesion with significant vasogenic edema as well asmidline shift. I concur with our colleagues in Medical Oncology regarding this less likely being lymphoma and more likely being metastatic lung cancer. However, there is still a chance that this could be lymphoma. On discussion with Dr. Jackson and given the patient's neurological examination, we agreethat steroids are appropriate in this setting. Further, we agree that the patient's Eliquis should be held for approximately 72 hours prior to surgical intervention. Currently, our recommendation is open biopsy of the left frontal lesion followed by possible resection of the remaining lesion during the case. If you have any questions or concerns please contact; Neurosurgery Chief C, [phone]. BILLIN minutes of time were spent in consultation with the patient, greater than 50% of which was dedicated to education, counseling, and coordination of care. Eve Zavala M.S.[place]. - 10/04/2021 2:01 PM CDT SUBJECTIVE Social work attempted to meet with patient to offer support and address the discharge planning consult placed. Patient was off the unit or with a provider during social work attempts. Social work will try again at a later time to complete the discharge planning consult. OBJECTIVE Patient is hospitalized on Dom 4. ASSESSMENT / PLAN ASSESSMENT Patient was not assessed. PLAN Social work will continue to follow and offer ongoing support. Social work will continue to follow and assist with dismissal planning as appropriate. Susan Sprague. 10/04/21 Salty Diaz M.A., CCC-E BUSINESS PROJECT MANAGER - 10/04/2021 2:00 PM CDT Speech Pathology attempted to see Mr. Orellana for evaluation of cognitive- communication skills x2.He is away from his room on both attempts. Speech Pathology will plan to follow-up for evaluation tomorrow. Salty Diaz M.A., CCC-E BUSINESS PROJECT MANAGER 10/04/2021 Alfredo Shipley M.B., B.Ch. - 10/04/2021 12:32 PM CDT Images from the original note were not included. SUBJECTIVE This is a Supervisory note for Dr. Geronimo I have personally interviewed the patient and performed thurman elements of the physical examination. I reviewed and discussed the history and management plan verbally with the patient and the resident; I agree with their documentation except where indicated in my note, please see their note for details. REFERRAL SOURCE London Ng M.D. Physician ED (Emergency Medicine) CHIEF COMPLAINT Brain mass HPI He is a 76-year-old right-handed man with a background medical history of lung cancer diagnosed in 2019 s/p right lower lobe surgery, and chemotherapy (the full details are not available as this was done at the [facility]), follicular lymphoma (diagnosed in 2018 after adenopathy was identified during screening for abdominal aortic aneurysm), COPD, ex-smoker, atrial fibrillation on apixaban, hyperlipidemia who presented with new onset language difficulties and confusion. Over the last 2 weeks he had had increasing confusion and was having more trouble playing cribbage and also not speaking in full sentences. He then bought the wrong item in a shop and the patient's brought him to the emergency department. A CT head showed a left frontal brain mass. Please see Dr Geronimo's note for complete details of the allergies, current medications, family history, medical history, social history, surgical history, review of systems and problem list. OBJECTIVE NEURO EXAM He had evidence of an aphasia. He had preserved repetition but had a paucity of speech when describing the picture of the sink over flowing. In addition, he had trouble with naming. He did okay with complex comprehension. He had a mild right hemiparesis and right-sided pronator drift and some satelliting some possible subtle weakness there. Reflexes were brisk at both knees. His plantar responses were withdrawal. His gait examination was normal although tandem gait was not assessed. INVESTIGATIONS CT head from yesterday revealed a left frontal lobe mass located at the to- white junction along with prominent vasogenic edema. CT chest abdomen pelvis from earlier today revealed some abdominal lymphadenopathy but no major definitive cancer. Brain MRI is currently pending. ASSESSMENT / PLAN ASSESSMENT / PLAN #1 Left frontal brain mass, likely metastatic in the setting of #4 and #5 #2 Right hemiparesis, mild #3 Aphasia #4 History of lung cancer s/p right lower lobe resection and prior chemotherapy (unclear details done at the [facility]) #5 History of follicular lymphoma #6 Atrial fibrillation on apixaban The patient presents with subacute aphasia and on examination had aphasia and some mild right hemiparesis. The appearance of the mass at the to-white junction, along with extensive edema and his history of lung cancer raise suspicion for a solid organ malignancy metastasis. The patient does also have early history of lymphoma which would be on the differential diagnosis. Alternatively, primary glioma (glioblastoma) would also be on the differential diagnosis. Abscess or inflammatory lesions seem less likely. We have held off on giving steroids for now. Given the appearance of a solitary metastasis without widespread malignancy on CT body I suspect that our neurosurgery colleagues will want to biopsy with frozen section and if consistent with metastasis or glioma potentially resect this lesion. We greatly appreciate their assistance. Depending on the evaluation and his safety, given we are holding anticoagulation the patient may be able to come home and then go back for any neurosurgical procedure. Plan -Await final report of MRI which is currently underway -Neurosurgery consult -[facility] medical oncology about the case and any recommendations given his history of 2 known cancers. -Track down old records from the [facility] about cancer history -Speech pathology consultation -PMR -hold apixaban for now in anticipation of likely surgery The remainder is per the resident's note. Murali Bettencourt, R.Ph. - 10/04/2021 11:21 AM CDT Images from the original note were not included. Admission Medication History Note Adherence issues: No concerns Medication list source: Family member Medication related information: Prior to Admission Medications Med List Status: Pharmacy Complete Set By: Murali Bettencourt, R.Ph. at 10/04/2021 11:21 AM Taking? Last Dose Informant Start Date End Date LT amoxicillin (for_AMOXIL) 500 mg capsule More than a month -- -- Take 500 mg by mouth as needed (4 tabs one hr prior to dental work). apixaban (ELIQUIS) 5 mg tablet 10/03/2021 -- -- Take 5 mg by mouth 2 (two) times a day. atorvastatin (LIPITOR) 20 mg tablet 10/03/2021 06/07/21 -- Take 0.5 tablets by mouth at bedtime. cholecalciferol, vitamin D3, 25 mcg (1,000 Unit) tablet 10/03/2021 -- -- Take 25 mcg by mouth daily. dilTIAZem (TIAZAC/TAZTIA XT) 180 mg ER capsule 10/03/2021 -- -- Take 180 mg by mouth daily. famotidine (PEPCID) 20 mg tablet 10/03/2021 04/18/21 -- Take 20 mg by mouth 2 (two) times a day. folic acid 1 mg tablet 10/03/2021 03/21/21 -- Take 1 mg by mouth daily. magnesium oxide 400 mg magnesium tablet 10/03/2021 05/03/21 -- Take 400 mg by mouth daily. multivitamin capsule 10/03/2021 05/06/15 -- Take 1 tablet by mouth daily. documented in this encounter H&P Notes Shawna Geronimo M.D., M.P.H. - 10/04/2021 1:49 AM CDT Images from the original note were not included. General Neurology Admission Note SUBJECTIVE CHIEF COMPLAINT Confusion and difficulty with language HISTORY OF PRESENT ILLNESS: Mr. Crow Orellana is a 76 y.o. male with medical comorbidities significant for lung cancer (possibly adenocarcinoma, [facility] care [facility] and not available; diagnosed in 2019, s/p RLL surgery, and chemotherapy, uncertain agents), follicular lymphoma (dx 2017, unknown chemo; diagnosed when lymphad enopathy found on screen for AAA), COPD, former smoking, atrial fibrillation on Eliquis, hyperlipidemia who presents for evaluation of language concerns found to have a tumor with significant associated edema an outside ED. History was obtained via patient and who was present at bedside. reports that over the past 2 weeks, patient has been more fatigued/sleepy, confused, and speaking in shorter sentences. She started to notice these changes when he was playing cribbage, as he was needing to count on his fingers (he is a very good cribbage players so this was unusual for him). He also reports a strange sensation in his left foot the other day but is unable to further elaborate. The morning of 10/03, he was at the store with his and he bought the wrong item. Due to her ongoing concerns, she brought him to an ED in [place]. He typically receives care at the [facility] but they were full. In the ED, vitals were notable for a BP max of 179/68, intermittent aFib (rate around 70s).Labs were unremarkable. CT head show a probably mass in the left frontal lobe with associated vasogenic edema. He was transferred to [facility] for evaluation in the ED. On arrival to the ED, he was vitally stable. Neuro ED Senior Dr. Mathews evaluated him and noted evidence of aphasia, dyslexia, and acalculia on exam. He was admitted to the general neurology service forfurther evaluation and management. Review of Systems: ROS as stated in the HPI, all other systems were reviewed and are negative PAST MEDICAL/SURGICAL HISTORY lung cancer (possibly adenocarcinoma, receives care [facility] and not available; diagnosed in 2019, s/p RLL surgery, and chemotherapy, uncertain agents), follicular lymphoma (dx 2018, unknown chemo; diagnosed when lymphadenopathy found on screen for AAA), COPD, former smoking, atrial fibrillation on Eliquis, hyperlipidemia SOCIAL HISTORY - Tobacco use: Quit smoking in 2012, does not remember how many years but smoked more than 1 pack a day - Alcohol use: No alcohol use FAMILY HISTORY Mother: Lung cancer; Stroke Father: Coronary artery disease; Diabetes mellitus; Peripheral vascular disease OBJECTIVE Temperature: [36.1 ??C-36.6 ??C] 36.2 ??C Heart Rate: [68-92] 69 Resp Rate: [13-21] 16 Blood Pressure: (119-179)/(47-87) 146/81 SpO2: [96 %-99 %] 99 % Pulse Rate: [48-85] 68 Physical Exam: Constitutional: well-developed, well-nourished, resting comfortably in bed Lungs: Breathing comfortably on room air. Clear to auscultation bilaterally. Cardiac: regular rate and rhythm Abdomen: Soft, non-tender, non-distended. Skin: No rash on exposed skin. Neurologic: Mental status: Alert and oriented to person. Difficulty with the name of the hospital but eventuallystates hospital for place. Says it is 2011 for year but states the month is September. Able to follow simple commands, complex commands, and commands that cross the midline. No left/right confusion. Able to state how many quarters are in $1.25 (initially stated 6 but corrected himself and stated 5). Ableto read simple sentences but uses paraphrases and word substitutions with longer sentences. Uses short sentences for the cookie theft picture. Cranial nerves: PERRL, EOMI, visual guadalupe intact to confrontation, facial movements full and symmetric, sensation intact to light touch and pinprick in the V1-V3 distributions, hearing intact to voice, tongue protrudes in midline, there is equal elevation of the soft palate, shoulder shrug is appropriate in strength. Motor: Bilateral upper and lower extremity strength evaluated including: (R, L) deltoids (0,0), biceps (-1,0), triceps (-1,0), wrist extension (0,0), finger extension (0,0), interossei (0,0), iliopsoas(-1,0), knee flexion (0,0), knee extension (0,0), ankle dorsiflexion (0,0), toe extension (0,0). Sensory: Sensation intact to light touch. Reflexes: biceps (0,0), triceps (0,0), brachioradialis (0,0), patellar (0,0) and Achilles (0,0). Plantar flexor responses are flexor-flexor. Coordination: Finger to nose and heel to butterfield normal bilaterally. Gait: Not assessed Diagnostics: CT Head 10/03: Impression: 1. Probable mass in the left frontal lobe with associated vasogenic edema, local mass effect, and rightward shift at the level of the septum pellucidum by 8 mm. Findings could reflect lymphoma given patient history. Additional considerations include other primary or metastatic brain lesions or intracranial abscess. Recommend MRI to better characterize. I have reviewed the labs and diagnostics from last 6 months. ASSESSMENT / PLAN Mr. Crow Orellana is a 76 y.o. male with medical comorbidities significant for lung cancer (possibly adenocarcinoma[facility]; diagnosed in [facility], s/p RLL surgery, and chemotherapy, uncertain agents), follicular lymphoma (dx 2018, unknown chemo; diagnosed when lymphad enopathy found on screen for AAA), COPD, former smoking, atrial fibrillation on Eliquis, hyperlipidemia who is hospitalized on the general neurology service for workup and management of probably mass in the left frontal lobe found on imaging. This may explain his recent confusion, language difficulty,and right- sided weakness seen on exam. Given his history of lung cancer and lymphoma, metastasis is certainly a concern. Alternative but less likely etiologies are primary brain cancer and abscess (unlikely as he is afebrile, no leukocytosis). Due to his gait instability, confusion, and aphasia, we will consult our colleagues in PT/OT/E BUSINESS PROJECT MANAGER. We will obtain further imaging with MRI brain to further characterize the lesion seen on CT imaging. We will hold off on treatment with steroids (dexamethasone) due to concern that this may be lymphoma. #1 Brain mass in the left frontal lobe, concerning for metastatic disease #2 Follicular lymphoma, s/p chemotherapy #3 Lung cancer, s/p resection and chemotherapy #4 Cerebral edema and brain compression secondary to #1 #5 Aphasia, right sided weakness, and confusion, likely secondary to #1 #6 Gait instability #7 Atrial fibrillation on Eliquis #8 Hyperlipidemia -MRI brain with and without contrast with fiducials to further characterize the lesion seen on CT imaging - CT chest/abdomen/pelvis with contrast to evaluate for reoccurrence of prior malignancy - leukemia/lymphoma phenotyping by flow cytometry - PT/OT/E BUSINESS PROJECT MANAGER - hold home Eliquis - hold DVT ppx, can consider initiating pending results of CT chest/abdomen/pelvis and possibility of biopsy - Obtain records from [facility] - Consider consult with Neurosurgery and Oncology versus hematology in the morning pending results of imaging - Continue home atorvastatin, diltiazem, famotidine, vit D, folic acid, magnesium, and multivitamin Diet: regular Tubes/lines: PIV VTE prophylaxis: SCD's Code status: Full Code Disposition: Uncertain Please do not hesitate to page the General Neurology Service pager at [phone] with any questions or concerns. T General Neurology Service Ged Instructor: Dr. Quinten Geronimo M.D., M.P.H. documented in this encounter Consult Notes Alysha Hendricks P.T., D.P.T., [facility] - 10/08/2021 12:28 PM CDT Physical Therapy Acute Hospital Inpatient Re-Evaluation/Treatment SUBJECTIVE Referring/Attending Provider: Bebeto Jackson M.D. Patient's Name: Crow Orellana Reason for Referral: Brain rehab Medical Diagnosis: 1. Mass Brain Active 2. Decline Functional Status [R53.81 (ICD-10-CM)] 3. Mass Brain Onset Date: 10/03/21 Payor: MEDICARE / Plan: MEDICARE A AND B / Product Type: Medicare / PERTINENT MEDICAL / SURGICAL HISTORY: Patient Active Problem List Diagnosis Atrial Fibrillation (HCC) Osteoarthritis Lymphoma (HCC) Hyperlipidemia Nodules Pulmonary Multiple Follicular Lymphoma Unspecified Unspecified Site (HCC) Mass Brain History reviewed. No pertinent surgical history. History of Present Illness: He is a 76-year-old right-handed man with a background medical history of lung cancer diagnosed in 2019 s/p right lower lobe surgery, and chemotherapy, follicular lymphoma, COPD, ex-smoker, atrial fibrillation on apixaban, hyperlipidemia who presented with new onset language difficulties and confusion. Over the last 2 weeks he had had increasing confusion; a CT head showeda left frontal brain mass w/ resection on 10/07/21. See Hospital Admission History and Physical for full history of present illness. Precautions Other Precautions: Fall risk, seizure, cognition Patient/Caregiver Goals: Pt goal to return home. 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 Leisure Interests: Fishing. Prior Mobility/Functional Transfers Level of [place]: Independent Home Living Type of Home: House Home Layout: Two level, Able to live on main level with bedroom/bathroom, Laundry in basement Home Access: Stairs to enter without rails Entrance Stairs: Number of Steps: 2 stairs to enter, no railing but a grab bar. Bathroom Shower/Tub: Walk-in shower Walk-in shower location: Main floor Walk-in shower enclosure type: Curtain Bathroom Toilet: Comfort height Bathroom Accessibility: Yes How Accessible: Accessible via walker Home Equipment Home Adaptive Equipment: Transport Rn, Sock aid, Long-handled shoe horn Gait Devices Owned: Front-wheeled walker, Cane Bathroom Equipment: None Fall Risk (65 and older) Fall in the last 12 months: No Are you fearful of falling?: No OBJECTIVE Strength - Upper Extremity Screen: Addressed, no concerns noted Strength - Lower Extremity Screen: Addressed, no concerns noted Sit to Stand Transfers # of Assistants: 1 Transfer Surface: Chair Transfer Equipment: Gait belt Level of Assistance: Supervision/set-up Assessment/Delivery: Assessed Stand to Sit Transfers # of Assistants: 1 Transfer Surface: Chair Transfer Equipment: Gait belt Level of Assistance: Supervision/set-up Assessment/Delivery: Assessed Gait Assessment/Training Distance (m): 100 m Surface: Even, Smooth/hard Device: Gait belt # of Assistants: 1 Level of Assistance: Supervision/Set-up Assessment of Gait: slight instability but able to self-recover Cueing Provided: Verbal Training/Intervention: worked on walking with head turnds, eyes closed, annd narrow base of support Stairs/Curb # Stairs: 10 Rails: 1 Device: Gait belt # of Assistants: 1 Level of Assistance: Supervision/Set-up Stair Navigation Pattern-Ascending: Reciprocal pattern Stair Navigation Pattern-Descending: Reciprocal pattern Cueing Provided: Tactile, Verbal Patient/Family Education: have within supervision distance upon return to home At the end of today's therapy session patient was left seated in bedside chair with an appropriate call light within reach. Patient's needs and questions addressed during today's session. Contact monitoring: PPE used during therapy: Therapist was wearing the following PPE throughout entire session: surgicalmask and eye protection Patient was wearing a mask during therapy session: yes in hallway Family member/caregiver present was wearing a mask: yes Assessment Patient received pleasant and agreeable to therapy, up in bedside chair. He was slightly unstable onhis feet but did not require hands on assist for balance. He ambulated with head turns and eyes closed without assist for balance. Patient ascended/descended flight of stairs with 1 rail. Patient feeling confident in his mobility, anticipate home with once medically stable. Rehab Potential: Mr. Orellana has Excellent potential to achieve established physical therapy goalswithin the time frame outlined below. Barriers to a safe discharge home: Barriers to Discharge Home: None Comorbid Conditions: Cancer, Cardiopulmonary disease Discharge Therapy Needs - PT: Ongoing skilled physical therapy (May benefit from further out-patientPT to address high level balance at discharge.) Skilled therapy can include physical therapy provided by home health, outpatient clinic, or a post-acute facility. The location of these services is determined by the patient's care team in partnershipwith patient/family. Functional Goals and Timeframes: PT Goal #1: Patient will perform bed mobility including supine <> sit transition without use of special bed features modified independently to demonstrate progress toward functional baseline. PT Goal #2: Patient will demonstrate [id number] transfers with the least restrictive gait aid and modified independence to demonstrate progress toward functional baseline. PT Goal #3: Patient will ambulate 30 meters with the least restrictive gait aid and modified independence or better while executing the task with good safety awareness, stability, and functional strength to demonstrate progress toward functional baseline. PT Goal #4: Patient will be able to ascend/descend 2 stairs per home set-up modified independently while executing the task with good safety awareness, stability, and functional strength to demonstrateability to access home environment and progress toward functional baseline. Plan Patient agrees with the plan of care and goals. Treatment Plan: PT Inpatient Duration : Until goals are met or hospital discharge Treatment interventions may include: Treatment/Interventions: Therapeutic functional activity, Therapeutic exercise, Neuromuscular re-education, Gait training Clinical Presentation: Evolving Number of Examination elements: 3 Clinical Decision Making: Moderate complexity clinical decision making Time Spent with Patient Evaluations PT Re-Eval (min): 15 min Therapeutic Interventions Therapeutic Activity (min): 13 min Time Tracking Total Timed Units (min): 13 min Total Treatment Time (min): 28 min Alysha Hendricks P.T., D.P.TLucinda, BRIANA Eve Zavala, M.S.W. - 10/05/2021 2:29 PM CDTAssociated Order(s): IP CONSULT TO CARE MANAGEMENT Psychosocial Assessment SUBJECTIVE Assessment Information Referral Source: Provider/Service Referral Reason: Discharge Planning Primary Language: Kittitian Technical Specialist Services Used: No Sexuality/Pronoun: He/Him/His Person(s) present during interview: patient and spouseWanda Disclaimer: They were advised of the various topics that will be assessed during this evaluation. They consented to proceed. The information provided in the assessment is based on review of the medicalrecord as well as the face to face interview. They were advised that the content of this interview will be shared with the health care team and documented in the medical record. They were advised that anyone with access to their patient portal will have access to this information. It was discussed that staff are mandated reporters and they reported understanding. History of Present Illness #1 Mass Brain Patient was hospitalized after experience a change in mental status for the past two weeks. Social History Early Growth and Development: The patient met social and developmental milestones as expected. Citizenship: [place] Citizen Resident Status: [place] Res[place] Marital Status: Family / Household: Patient lives in a [facility] Support System: family members and friends/neighbors Caregiver Information: Caregiver Name: Adrianne Orellana Caregiver Relationship: Spouse Spirituality/Episcopalian/Cultural Factors: Patient denied being faith History: Yes, [place] Employment: retired Psychosocial Risk Factors Impacting the Patient: none Maltreatment: none reported Trauma: none reported Current Stressors Patient's hospitalization and diagnosis is a source of stress Coping Skills/Strengths Patient and his identified that they spend a lot of time sitting outside and reading during their free time. Patient identified family and friends as supports. Financial/Insurance Primary insurance: MEDICARE A AND B Secondary insurance: [employer] Does the patient have any financial concerns? No Advance Directives Legal Decision Maker: Self Advance Directives: N/A Advance Directives Status: Not Activated Baseline Functional Status Baseline Activities of Daily Living Mobility: Independent Dressing: Independent Feeding: Independent Bathing: Independent Grooming: Independent Toileting: Independent Behavior: Appropriate, Cooperative Communication: Talks, Understands Kittitian Shopping: Needs assistance Transportation: Support from family Medication Management: Needs assistance Housekeeping: Needs assistance Meal Prep: Needs assistance Managing Finances: Independent Assistive Devices: None Services/Resources: Home health Agency Name: [facility] Provided: residential once every other week Baseline Services/Resources Primary care clinic and provider: ELSEWHERE, PCP Services/Resources: Home health Anticipated Needs Functional Status: Transfer to/from bed, chair, etc., Mobility Assistive Devices: None Agency Name: [facility] Provided: residential once every other week Anticipated Modifications to the Patient's Home: None Transportation Needs: Support from family Does the patient need discharge transport arranged?: No Anticipated Discharge Destination: Home or Self Care OBJECTIVE Substance Abuse no symptoms Mental Health Mental Health History: Patient reports no mental health history and no current concerns Suicide Risk and Safety Risk Assessment: Not clinically indicated. Patient denied wishing to be . Patient denied suicidal ideation. Homicidal: no Mental Status Orientation: Oriented to person, Oriented to place, and Oriented to time Level of consciousness: Awake and alert Appearance: Age appearing Behavior observed: Calm Memory: Intact although patient did refer to his to answer questions about what caused this hospitalization Cooperation: cooperative Affect: Mood-congruent Speech: Within normal limits for volume, rate and tone Thought content: Does not appear to respond to internal stimuli Thought process: Logical, linear, and goal-directed Judgement: intact Insight: intact Review of Psychiatric Symptoms: Sleep/insomnia: no sleep concerns Energy: stable Appetite/weight: unchanged Anxiety symptoms: medical illness anxiety Depression symptoms: no symptoms Divina/hypomania symptoms: no symptoms Psychotic symptoms: no symptoms Disruptive, impulse-control, and conduct symptoms: no symptoms Personality symptoms: no symptoms Neurocognitive symptoms: no symptoms Other Mental Health Assessments Not clinically indicated. ASSESSMENT / PLAN Discussion Patient is a 76 year old who was referred to social work for discharge planning. Patient wasaccompanied by his , Adrianne. They were agreeable to speaking with social work. Adrianne reported patient was having confusion and was struggling to articulate over the past two weeks. Patient doeshave a history of lymphoma. Prior to admission, patient was residing in a [facility] with his . Adrianne stated that they live in the [facility] and their home is one level. Patient stated he ambulates two steps to enter the home. Patient denied receiving assistance with ADL's except for medication management. Adrianne reported that theydo have a home health nurse that comes every two weeks for vital check and med management. Patient denied using assistive devices at this time. Patient is hopeful he will return home once medically stable and his will transport. Patient identified his mood as good. It is noted in the EHR that patient's noted a change in affect and was a little more down than typical. Today, patient was cheerful. Patient reported his sleepto be good and his appetite to be good. Patient denied concerns of self harm or suicidal ideation and intent. Patient denied concerns of abuse/neglect or exploitation. Patient denied use drugs or alcohol at home. Assessment/Impressions Patient is a 76 year old male who was hospitalized due to altered mental status. On today's presentation, patient appeared his stated age and was well groomed. He was calm and interactive. His affect was mood congruent and speech was articulate. Patient was alert and oriented to person, place and time, although he did often defer to his to answer questions regarding home environment. Patient andhis appear to be coping well with this hospitalization although did state they are feeling a little overwhelmed with all the information they have received thus far. Patient and his appear tohave insight into this hospitalization. Interventions Social work provided education on the role of social [facility] at [facility]. Social work completed psychosocial assessment. Social work provided supportive counseling in the following ways; rapport building, active listening, empathetic statements, strength based statements. Plan Patient to discharge with home health care. Home Medical Care - Admitted Since 10/03/2021 Service Provider Selected Services Address Phone Fax Patient Preferred [facility]- alf services once every two [id number], [facility] [phone] -- Contact: Intake Paid for by the [place] NURSING: - Complete documentation in the Discharge Navigator including Nursing Report Info and Facility/NextLevel of Care Info - Call report and arrange for the patient???s first visit. - Send required packet of dismissal information with patient, including After Visit Summary and advance directive. PRIMARY SERVICE: - Please provide a non-[place] home health order for resumption of previous services by home health care on the After Visit Summary. If additional services are needed, please provide order. - Communicate with the patient???s local primary care provider by telephone for writing of home care orders. This needs to be done to help prevent discharge delays. A copy of the After Visit Summary needs to be sent there as well. SOCIAL WORK: -Reviewed patient's insurance coverage for the services noted above. The patient and Adrianne appear(s) to have an understanding of this. -Will continue to follow and assist if needs arise. Zelda SpragueS.America. 10/05/2021 Salty Diaz, M.A., [facility]-E BUSINESS PROJECT MANAGER - 10/05/2021 12:56 PM CDT Speech Language Pathology Evaluation - Acute Care Session Type: Evaluation Length of session: 36 minutes SUBJECTIVE Referred By: RST General Neurology History: Mr. Orellana is a 76-year-old male who was admitted to [facility] on October 03, 2021 afterpresenting to an outside hospital with 2 week history of increased fatigue, confusion, and speaking in short sentences. Imaging obtained at outside ED revealed a left frontal mass concerning for metastatic disease with associated edema. [facility] for further workup andmanagement. Additional medical history is significant for lung cancer (possibly adenocarcinoma[facility]; diagnosed in 2019, s/p RLL surgery, and chemotherapy, uncertain agents), follicular lymphoma (dx 2018, unknown chemo; diagnosed when lymphadenopathy found on screen for AAA), COPD, former smoking, atrial fibrillation on Eliquis, and hyperlipidemia. Please refer to clinical notes for full patient history and details. Mr. Orellana has not received prior Speech Pathology services. Speech Pathology consult was received for evaluation of cognitive communication. Prior Level of Functioning: Mr. Orellana was previously independent with all ADL and IADLs. He lives with his spouse in [place], [place]. 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 He enjoys fishing and playing cards. General: Family/Caregiver Present: Yes ( Adrianne present) Arousal/Alertness: Appropriate responses to stimuli Current Vision: Wears glasses all the time Hearing: Within Normal Limits (WNL) Behavior: Alert, Cooperative, Pleasant mood Pain No pain was reported during session. OBJECTIVE Objective Session Data Oral Motor Dentition: Adequate Motor Speech Voice: Within Normal Limits (WNL) Respiration: Within Normal Limits (WNL) Articulation: Within Normal Limits (WNL) Intelligibility: Intelligible Auditory Comprehension Yes/No Questions: Impaired Complex Questions: 81-99% accuracy Commands: Impaired One Step Basic Commands: 4/5 Complex/Abstract Commands: 2/5 Picture Identification: 100% accuracy Conversation Comprehension: Moderate Effective Techniques: Extra processing time, Repetition, Reduced distractions Reading Comprehension Reading Status: Impaired Verbal Expression Primary Mode of Expression: Verbal Primary Language: Kittitian Confrontation Naming: Impaired Confrontation Objects: 61-80% accuracy Confrontation Pictures: 61-80% accuracy Generative Naming/Word Fluency: 1-20% accuracy (2 animals in 60 seconds) Sentence Completion: 100% accuracy Open Ended Questions: 41-60% accuracy Conversation: Impaired Impaired Conversation: Moderate Written Expression Dominant Hand: Right Written Expression: Impaired Assessment is seen by Speech Pathology for evaluation of cognitive- communication skills. He demonstrates moderate aphasia across all modalities. He follow single step commands with 80% accuracy and multi element commands with 40% accuracy. He answers all basic and complex yes no questions with 100% accuracy. He greatly benefits from extra time for processing when responding to complex yes no questions. He identifies pictures of common objects with 100% accuracy. He easily completes basic sentence completion tasks. He completes confrontation naming and responsive naming tasks with 80% accuracy. He benefits from phonemic cuing when he demonstrates anomia. Greater difficulty is seen when cognitive linguistic demand is increased he has more difficulty defining objects in concepts often using the word as the definition. For example when asked to define the word urgent he states ???it's something that urgent?? . He names two animals during a 60 second semantic fluency task, but also naming other unrelated items such as ???peanut butter?? and ???Kenn Acosta?? . When asked to describe the [facility] doctor's office picture he states ???we got Nitin he islooking at a picture basically Nitin. Everything that is going on in there. ?? Responses are oftenagrammatic and non-specific. He matches basic pictures to single words with 50% accuracy. He reads and follows a single step command but is unable to accurately complete two step or multi element written commands. He accurately reads in answers all basic yes no questions. He is 50% accurate when reading a multiple-choice questionin selecting the correct answer from a written field of 4. Mr. Orellana rights words up to 6 letters in length to dictation without any errors. Perseveration and letters and spelling errors are seen in words longer than 6 characters. With extra time he correctly write his name and address without any paraphasic errors. When tasks with writing a sentence about something he likes to do in the summertime he writes ???fish?? . The role of Speech Pathology and rationale for today's evaluation are discussed with him. Education regarding aphasia and how to facilitate communication is provided to Mr. Orellana and his present. She is encouraged to provide him with options and utilize yes no questions to support him during communication breakdowns. Mr. Orellana will continue to greatly benefit from ongoing speech pathology services. Contact Monitoring: Clinician was wearing the following PPE for the duration of today's session(s): surgical mask and eye protection Goals: Auditory Comprehension Short Term Goal 1 Auditory Comprehension Short Term Goal 1: Patient will demonstrate comprehension of information related to medical circumstance, therapy, and routine with minimal support. Auditory Comprehension Short Term Goal 1 Progress Toward Goal: Progress toward goal completion: continue on target Verbal Expression Short Term Goal 1 Verbal Expression Short Term Goal 1: Patient will utilize word-finding strategies during communication breakdowns with moderate cuing. Verbal Expression Short Term Goal 1 Progress Toward Goal: Progress toward goal completion: continue on target Diagnosis: Impressions Consistent with a diagnosis of: Aphasia Aphasia: Moderate Plan Recommendations: Discharge Location: Unknown E BUSINESS PROJECT MANAGER Ongoing Services: Ongoing formal Speech Pathology services Duration of Treatment: LOS Rehab Potential: Good Nancy Hollis M.D., Ph.D. - 10/04/2021 4:09 PM CDTAssociated Order(s): IP CONSULT TO ONCOLOGY CARE TEAM [place] Oncologist: Fellow responsible: Dr. Hollis Primary staff: Not yet discussed with disease specific staff, pending diagnosis Supervised by: Dr. Romero (consult service staff) Local primary oncologist: [place], [place] SUBJECTIVE HISTORY OF PRESENT ILLNESS Crow Orellana is a 76 y.o. male admitted to the Neurology service with confusion, aphasia, and right-sided weakness in the setting of a new left frontal brain mass with significant vasogenic edema. Medical Oncology was consulted at the request of neurologic surgery for information on his cancer status to inform surgical decision-making We do not currently have outside records from the [place]. The following oncology history is APPROXIMATE based on my discussion with the patient's and information in the chart: 06/2015: Ultrasound to evaluate his thoracic abdominal aorta identified abdominal lymphadenopathy. Biopsy of an inguinal lymph node showed low-grade follicular lymphoma. He was treated with chemo immunotherapy. Indication unknown, possibly cytopenias. His does not recall him being symptomatic or having bulky disease. His thinks he received R-CHOP for 6 cycles rather than bendamustine/rituximab. Not clear if there was large cell transformation from the limited history. 2020: Diagnosed with lung cancer, most likely adenocarcinoma of the right lower lung. He underwent resection with 3 lymph nodes positive per his . He was subsequently treated with adjuvant chemotherapy, possibly cisplatin with pemetrexed for 4 cycles. In the last cycle he had a reaction to cisplatin. Following adjuvant chemotherapy he has been on surveillance. Most recent surveillance CT chest abdomen and pelvis earlier this month (09/15/21) showed no concern for lung cancer recurrence (indeterminate pulmonary nodules up to 3 mm), and some progressive lymphadenopathy in the abdomen/pelvis consistent with slight progression lymphoma. There was noted to be small a right renal lesion. Leading up to the present admission, his noticed he was more confused, forgetful, not communicating clearly, less engaged. He presented to the ED for these concerns. CT of the head showed a left frontal lobe mass. He was referred to the [place] ED and admitted to the neurology service for further management. MRI brain showed a peripherally enhancing, centrally necrotic left frontal lobe mass measuring 4.2 x2.9 x 3.6 cm with significant associated vasogenic edema and mass effect, rightward midline shift, and subfalcine herniation. CT chest abdomen and pelvis here showed no suspicious pulmonary nodules or thoracic lymphadenopathy.In abdomen, enlarged mesenteric lymph nodes measuring up to 2 cm were seen, with additional iliac lymphadenopathy. Scattered subcentimeter hypodense lesions throughout the liver, indeterminate but may r epresent cysts and/or hemangiomas. A small right renal cyst. Indeterminate 7 mm sclerotic lesion in the right iliac bone. On evaluation today, he reports he is feeling fine. He is pain free. He denies any focal symptoms. He does not appreciate any confusion or difficulty with speech which is noted by his . SYSTEMS REVIEW A 10 point systems review was performed and negative except as noted above in the HPI. PAST MEDICAL/SURGICAL HISTORY/SOCIAL HISTORY/FAMILY HISTORY Medical history is notable for early stage lung cancer (2020), follicular lymphoma, COPD, obstructive sleep apnea, hyperlipidemia, peripheral arterial disease, atrial fibrillation on apixaban. Family history of stomach and lung cancer in his mother, endometrial cancer and melanoma in his sister, and prostate cancer in 1 of his 3 brothers. He is a former smoker, previously 2 packs per day, quit in the OBJECTIVE VITAL SIGNS Vitals: 10/04/212004 BP: 154/57 Pulse: 69 Resp: Temp: SpO2: PHYSICAL EXAMINATION General: Alert, in no acute distress. Eyes: Sclerae anicteric, conjunctiva clear. HENT: Moist mucous membranes poor dentition. Lymph: No cervical, supraclavicular or infraclavicular lymphadenopathy was palpated. Cardiac: Normal rate, regular rhythm. No lower extremity edema. Lungs: Breathing comfortably on room air. Abdomen: Soft, nontender. Neuro: Oriented to date, unable to state the circumstances of his admission. Unable to follow many commands in a basic neuro exam. Cranial nerves intact. Slightly diminished strength in the right upperand lower extremity. ECOG score 2. LABS Labs and imaging were reviewed. Pertinent items are noted in HPI. ASSESSMENT / PLAN #1 Left frontal brain mass, query metastatic disease, lymphoma, or primary tumor. #2 Aphasia/altered mental status with mild right hemiparesis #4 History of lung cancer s/p right lower lobe resection 2020 and adjuvant chemotherapy (unclear details done at the [place]) #5 Follicular lymphoma, query history of transformation #6 Atrial fibrillation on apixaban, held Mr. Orellana is admitted with a symptomatic left frontal brain mass with significant surrounding vasogenic edema, midline shift, and subfalcine herniation. This could represent metastatic lung cancer,other metastasis, lymphoma, or a primary [employer] tumor. Metastatic lung cancer is perhaps most likely, given his history of locally advanced disease treatedwith resection and adjuvant chemotherapy approximately 2 years ago. Follicular lymphoma does not typically go to brain. However, his reports he was treated with R-CHOP, which is a less common front line treatment for follicular lymphoma, but commonly used after large cell transformation. It wouldbe helpful to obtain the outside records. Certainly, [employer] relapse of high- grade lymphoma would be more common than [employer] involvement with follicular lymphoma. He was previously told he may have renal cellcarcinoma, but current imaging shows only a small renal cyst. Systemically, he does not have a large burden of disease. The abdominal/iliac lymphadenopathy likelyrepresents follicular lymphoma. There is a small indeterminate iliac bone lesion. Our preference would be to obtain a tissue diagnosis and treat the brain lesion either with surgicalresection if recommended by Neurosurgery, or with radiotherapy. Systemic therapy will be secondary to treating the brain lesion at this point. If biopsy/resection would be offered soon, it would be reasonable to defer steroids until biopsy in case lymphoma is present. However, he is clearly symptomatic from this lesion and has significant vasogenic edema and midline shift. Therefore, if biopsy will be deferred or delayed while apixaban is was lynn out, we recommend proceeding with steroids. I discussed his case with the hematology consult fellow, Dr. Goodrich, who concurred. Ideally steroids would not be started prior to tissue diagnosis, but in this case may be necessary and acceptable. I discussed with the patient and his that further recommendations for treatment will be pendingtissue diagnosis. The patient was discussed with Dr. Romero who will see him tomorrow. Recommendations were discussed with the neurology team. Total time of encounter: 40 minutes. Associated attestation - Magdaleno Romero M.D. - 10/05/2021 4:03 PM CDT I saw and evaluated the patient, participating in the thurman portions of the service. I reviewed Dr. Hollis's note. I agree with the resident/fellow???s findings and plan. Briefly this is a 76 year old male with a recent history of lung cancer and follicular lymphoma. We don't have complete records, but he comes in with a frontal lobe mass and change in mental status. Heis alert but confused. Agree that steroids can be used form our standpoint, it may slightly decrease yield of lymphoma dx if biopsy or resection is pursued, but could improve the edema. Recommend Rad Onc consult unless surgical excision is planned by neurosurgery Low volume disease outside [employer] so plan will focus on [employer] for now. Jessica Parikh M.S., O.T. - 10/04/2021 3:39 PM CDT Occupational Therapy Acute Hospital Inpatient Evaluation/Treatment SUBJECTIVE Referring/Attending Provider: Alfredo Shipley M.B. Patient's Name: Crow Orellana Reason for Referral: Brain rehab Medical Diagnosis: 1. Mass Brain Active 2. Decline Functional Status [R53.81 (ICD-10-CM)] Onset Date: 10/03/21 Payor: MEDICARE / Plan: MEDICARE A AND B / Product Type: Medicare / PERTINENT MEDICAL / SURGICAL HISTORY: Patient Active Problem List Diagnosis Atrial Fibrillation (HCC) Osteoarthritis Lymphoma (HCC) Hyperlipidemia Nodules Pulmonary Multiple Follicular Lymphoma Unspecified Unspecified Site (HCC) Mass Brain History reviewed. No pertinent surgical history. History of Present Illness: He is a 76-year-old right-handed man with a background medical history of lung cancer diagnosed in 2019 s/p right lower lobe surgery, and chemotherapy, follicular lymphoma, COPD, ex-smoker, atrial fibrillation on apixaban, hyperlipidemia who presented with new onset language difficulties and confusion. Over the last 2 weeks he had had increasing confusion; a CT head showeda left frontal brain mass. See Hospital Admission History and Physical for full history of present illness. Precautions Other Precautions: Fall risk, seizure, memory Patient/Caregiver Goals: Did not state. Patient Comments: Patient alert and seated in bedside chair upon arrival. Agreeable to occupational therapy evaluation today. 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 Home health nurse sets up patient's medications in pillbox and patient administers his own medications. Driving: Independent Driving Comments: Patient's spouse reports he drove the day prior to admission and stated, He did fine even though he couldn't tell me what town we were in or what store we were going to. 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 Bathroom Shower/Tub: Walk-in shower (2 lip) Walk-in shower location: Main floor Walk-in shower enclosure type: Curtain Bathroom Toilet: Comfort height Bathroom Accessibility: Yes How Accessible: Accessible via walker Home Equipment Home Adaptive Equipment: Transport Rn, Sock aid, Long-handled shoe horn Gait Devices Owned: Front-wheeled walker, Cane Bathroom Equipment: None Fall Risk (65 and older) Fall in the last 12 months: No Are you fearful of falling?: No OBJECTIVE Pain: Patient denies pain this date. Vitals:Not indicated at this time Cognition Cognitive assessment method: Therapist observations Arousal/Alertness: Appropriate responses to stimuli Initiation: No difficulty with initiation Orientation: Other (Comment), Disoriented to time (Patient first stated [place], able to self-correct. Patient reports October, therapist orientated patient to September) Following Commands: Follows all commands/directions without difficulty Following Commands Comments: Patient required repeition of commands for light touch screen. Memory: Impairments noted Long-term Memory/History Giving: Moderate Memory Comments: Patient unable to accurately recall home set-up or previous work history. Safety/Judgment: Impairments noted Self-monitoring/Self-correct Consistently: Mild Insight/Awareness of Deficits: Moderate Safety/Judgment Comments: Patient reports no changes in his functioning. He did run into the bed on his right side resulting in slight loss of balance. Cognition Comments: Deficits noted in memory, potential deficits with attention and problem-solving.Plan for cognitive screen. Posture/Postural Control Cervical: Forward head Thoracic: Rounded shoulders Balance Static Sitting-Balance: Good (Maintains balance without support) Dynamic Sitting-Balance: Good (Maintains balance without support) Static Standing-Balance: Good (Maintains balance without support) Dynamic Standing-Balance: Good (Maintains balance without support) Coordination Overall Coordination: Movements are fluid and coordinated Finger to Nose Test (Dysmetria): Addressed, no concerns noted Finger to Finger Test (Dysmetria): Addressed, no concerns noted Rapid Alternating Movements (Dysdiadochokinesia): Eyes Open: Addressed, no concerns noted Rapid Alternating Movements (Dysdiadochokinesia): Eyes Closed: Addressed, no concerns noted Coordination Comments: Right hand grasp weaker on right Activity Tolerance Endurance: Endurance does not limit participation in activity Baseline Vision/Correction: Wears glasses all the time Ocular Motility/Range of Motion Assessment Right Eye: Addressed, no concerns noted Ocular Motility/Range of Motion Assessment Left Eye: Addressed, no concerns noted Light Touch: No deficits (Patient required repetition of commands for light touch screen) Proprioception: No deficits Inattention/Neglect: (potential right side inattention? bumped into bed on right side) Current Hearing Function: Hearing intact Motor Planning: Appears intact ROM - Lower Extremity Screen: Addressed, no concerns noted ROM - Lower Extremity Screen Comments: Within functional limits. Strength - Lower Extremity Screen: Addressed, no concerns noted Strength - Lower Extremity Screen Comments: Within functional limits. Gross Hand Function Right Hand Gross Grasp: Functional Left Hand Gross Grasp: Functional Right Hand Coordination: Functional Left Hand Coordination: Functional LE Dressing LE Dressing Location: Chair LE Dressing Delivery: Assessed, Facilitated LE Dressing Items Included: Socks LE Dressing Level of Assistance: Independent Toilet Transfers Transfer Surface: Toilet Transfer Approach: To and from, Ambulating Level of Assistance: Independent Assessment/Delivery: Assessed, Facilitated At the end of today's therapy session patient was left seated in bedside chair with an appropriate call light within reach. Patient's needs and questions addressed during today's session. Contact Monitoring: PPE used during therapy: Therapist was wearing the following PPE throughout entire session: surgicalmask Patient was wearing a mask during therapy session: no Additional Staff Present During Session: Vanessa Killian, OT Assessment Patient is a 76-year-old right-handed man with a background medical history of lung cancer diagnosedin 2019 s/p right lower lobe surgery, and chemotherapy, follicular lymphoma, COPD, ex-smoker, atrialfibrillation on apixaban, hyperlipidemia who presented with new onset language difficulties and confusion. Over the last 2 weeks he had had increasing confusion; a CT head showed a left frontal brain mass. Prior to admission, patient was independent in ADLs and IADLs, although his did note when he was driving the day prior to admission, he did not know his location or destination. Patient presents with impaired safety/judgement, memory, balance, and further assessment is warranted for visual scanning and attention. Patient requires supervision assistance for completion of ADLs and IADLs due tomemory impairments with verbal cues for safety. Patient is performing below functional baseline and requires ongoing skilled OT to address previous listed deficits to improve independence with ADL and IADL tasks. From the Occupational Therapist's perspective, the patient is not an inpatient rehabilitation candidate due to current functional ability. Rehab Potential: Mr. Orellana has potential to achieve established occupational therapy goals within the time frame outlined below. Barriers to Discharge Home: Other (Comment) (cognition) Comorbid Conditions: Cancer, Cardiopulmonary disease Personal Factors: Communication deficit Discharge Therapy Needs - OT: Ongoing skilled occupational therapy Level of Care Needed - OT: Assistance with meal preparation, Assistance with associate financial advisor, Assistance with transportation, Assistance with housekeeping, Assistance with shopping, Cognitive assistance needed Skilled therapy can include occupational therapy provided by home health, outpatient clinic, or a post-acute facility. The location of these services is determined by the patient's care team in partnership with patient/family. Functional Goals and Timeframes: OT Goal #1: Patient will participate in cognitive screen to promote safety during ADL and IADL tasksand for discharge recommendations. OT Goal #1 Status: Progressing Progress: Progressing toward goals Plan Patient agrees with the plan of care and goals. Treatment Plan: OT Frequency: 5 times per week OT Amount: 1 visit per day OT Inpatient Duration : Until goals are met or hospital discharge Plan: Continue with current plan Treatment interventions may include: Treatment Interventions: Cognitive skills training, Self-care/home management, Therapeutic functional activity, Neuromuscular re-education, Therapeutic exercise Occupational Profile and History review: Expanded Performance Deficits: 3 - 5 performance deficits Evaluation Complexity: Moderate Time Spent with Patient Evaluations OT Eval - Mod Complexity: 20 min Time Tracking Total Treatment Time (min): 20 min Jessica Parikh M.S., O.T. Calvin Mcclure P.A.-C., M.P.H. - 10/04/2021 2:59 PM CDTAssociated Order(s): IP CONSULT TO NEUROLOGICAL SURGERY History of Present Illness: Crow Orellana is a 76 y.o. male presents [facility] as a transfer from outside for evaluation of a left frontal mass. History is obtained from his significant other who states that over the past 2-3 weeks, he has had cognitive changes, difficulty with comprehension as well as with speech. She has alsonoticed lethargy and some increased somnolence. He has not had any nausea vomiting, vision changes, weakness or difficulty with gait or bowel/bladder. PMH significant for lung cancer diagnosed in 2019 s/p right lower lobe resection and adjuvant chemotherapy, follicular lymphoma diagnosed in 2007 s/p chemotherapy, COPD, previous tobacco use, HLD and atrial fibrillation on apixaban. His last dose of apixaban was morning of 10/03/2021. Vitals: 10/04/21 1005 BP: 131/70 Pulse: 79 Resp: 16 Temp: 36.6 ??C SpO2: 95% Results: Lab Results Component Value Date WBC 6.9 10/04/2021 HGB 12.7 (L) 10/04/2021 HCT 39.5 10/04/2021 MCV 93.4 10/04/2021 PLT 257 10/04/2021 Lab Results Component Value Date NA 141 10/04/2021 KSERUM 4.4 10/04/2021 KPLASMA 4.0 10/03/2021 CL 104 10/04/2021 BICARB 26 10/04/2021 CREATININE 1.39 (H) 10/04/2021 EGFRNONBLKAA 49 (L) 10/04/2021 EGFRBLKAA 57 (L) 10/04/2021 BUN 19 10/04/2021 ANIONGAP 11 10/04/2021 GLUCOSE 92 10/04/2021 CALCIUM 9.2 10/04/2021 Imaging: CT Head without IV Contrast Result Date: 10/03/2021 Impression: 1. Probable mass in the left frontal lobe with associated vasogenic edema, local mass effect, and rightward shift at the level of the septum pellucidum by 8 mm. Findings could reflect lymphoma given patient history. Additional considerations include other primary or metastatic brain lesions or intracranial abscess. Recommend MRI to better characterize. CT Chest with IV Contrast, CT Abdomen Pelvis with IV Contrast Result Date: 10/04/2021 Impression: 1. Ill-defined hazy mesentery in the central abdomen with a few mildly enlarged lymph nodes or soft tissue nodules. These findings are nonspecific but differential considerations can include sclerosingmesenteritis, lymphoma, carcinoid or other inflammatory conditions. 2. Indeterminate mildly enlarged left iliac lymph nodes. 3. Indeterminate 7 mm sclerotic lesion in the right iliac bone. 4. No findings of malignancy in the chest. 5. The reticular and groundglass opacities in both lungs have significantly improved since 08/15/2020 and were likely infectious or inflammatory. MR Brain Perfusion without and with IV Contrast Result Date: 10/04/2021 Impression: 1. Peripherally enhancing, centrally necrotic intra-axial left frontal lobe mass concerning for metastatic disease versus primary [employer] neoplasm. 2. Significant associated mass effect from 1 with diffuse left frontal vasogenic edema and sulcal effacement, rightward midline shift, and subfalcine herniation. Physical Exam: Sitting in chair no acute distress x3. Face symmetric, PERRLA, EOMI. CN II-XII grossly intact. Full strength throughout in left hemibody. 4+/5 strength in right hemibody throughout. Ambulates well without use for gait device. Assessment/Recommendations: 76-year-old male admitted to the Neurology service with a left frontal mass after a two week historyof confusion, receptive as well as expressive aphasia. CT of the chest abdomen pelvis shows indeterminate sclerotic lesions on the iliac bone, iliac lymph nodes and hazy ill-defined mesentery in the abdomen and enlarged abdominal lymph nodes. Patient has a history of lung cancer s/p left lobectomy and chemotherapy in 2019 and follicular lymphoma s/p chemotherapy in 2018. His exam is significant for mild mixed aphasia and slight right hemibody paresis, otherwise no other focal deficits. Patient takes apixaban for atrial fibrillation and hislast dose was yesterday. We recommend continuing to hold this dose. No mention of any anti- platelet medications, but if this is on his medication history, please hold this as well. Given his relativelystable exam, we will plan to wait for input from medical oncology regarding disease burden especially given that he has indeterminate lesions which could be bone metastases and enlarged abdominal lymphnodes. It is likely he will require open vs. needle biopsy and a talked to the patient and his about the differences in approach and pros and cons for both. Patient and his seemed open to pursuing surgical intervention. Following input from medical oncology, we will likely take the patient to the OR for a biopsy however, final recommendations on intervention and time will be forthcoming. Please look to Dr. Cordova's note for final recs, who will be seeing the patient within the next 24h. Contact Neurosurgery Chief C on pager [phone] with questions or concerns. Rebecca Whiting PDaniel., D.P.T. - 10/04/2021 9:30 AM CDT Physical Therapy Inpatient Evaluation/Treatment SUBJECTIVE Patient's Name: Crow Orellana Referring/Attending Provider: Alfredo Shipley M.B. Medical Diagnosis: Mass Brain [G93.89] Reason for Referral: PT Evaluate and Treat Brain rehab Onset Date: 10/03/21 Payor: MEDICARE / Plan: MEDICARE A AND B / Product Type: Medicare / PERTINENT MEDICAL / SURGICAL HISTORY: Patient Active Problem List Diagnosis Atrial Fibrillation (HCC) Osteoarthritis Lymphoma (HCC) Hyperlipidemia Nodules Pulmonary Multiple Follicular Lymphoma Unspecified Unspecified Site (HCC) Mass Brain History reviewed. No pertinent surgical history. History of Present Illness: He is a 76-year-old right-handed man with a background medical history of lung cancer diagnosed in 2019 s/p right lower lobe surgery, and chemotherapy, follicular lymphoma, COPD, ex-smoker, atrial fibrillation on apixaban, hyperlipidemia who presented with new onset language difficulties and confusion. Over the last 2 weeks he had had increasing confusion; a CT head showeda left frontal brain mass. 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 Leisure Interests: Fishing. Prior Mobility/Functional Transfers Level of [place]: Independent Home Equipment Home Adaptive Equipment: Transport Rn, Sock aid, Long-handled shoe horn Gait Devices Owned: Front-wheeled walker, Cane Bathroom Equipment: None Home Living Type of Home: House Home Layout: Two level, Able to live on main level with bedroom/bathroom, Laundry in basement Home Access: Stairs to enter without rails Entrance Stairs: Number of Steps: 2 stairs to enter, no railing but a grab bar. Bathroom Shower/Tub: Walk-in shower Walk-in shower location: Main floor Walk-in shower enclosure type: Curtain Bathroom Toilet: Comfort height Bathroom Accessibility: Yes How Accessible: Accessible via walker Dominant Hand: Right Family/Caregiver Present: Yes (Spouse.) Patient/Caregiver Goals: Did not state. Patient Comments: Supine in bed upon arrival; agreeable to PT evaluation. Denied pain. Precautions Other Precautions: Fall risk, ?cognition Fall Risk (65 and older) Fall in the last 12 months: No Are you fearful of falling?: No OBJECTIVE Post-mobility vitals: Pulse rate: 91 bpm Blood pressure: 131/81 mmHg MAP: 92 Patient tolerated activity well; was asymptomatic with activity. RN was notified about response to activity. Cognition Arousal/Alertness: Appropriate responses to stimuli Initiation: No difficulty with initiation Following Commands: Follows all commands/directions without difficulty Safety/Judgment: Addressed, no concerns noted Cognition Comments: No deficits or areas of concern noted today but patient admitted for confusion/changes to language; defer to OT if formal assessment is warranted. General ROM / Strength Screening ROM - Lower Extremity Screen: Addressed, no concerns noted ROM - Lower Extremity Screen Comments: Within functional limits. Strength - Lower Extremity Screen: Addressed, no concerns noted Strength - Lower Extremity Screen Comments: Within functional limits. Posture/Postural Control Cervical: Forward head Thoracic: Rounded shoulders Bed Mobility - Supine to Sit # of Assistants: 0 Level of Assistance: Independent Device: None Comments: Able to complete without physical assistance; noted to have good strength/balance. Bed Mobility - Sit to Supine # of Assistants: 0 Level of Assistance: Independent Device: None Comments: Able to complete without physical assistance; noted to have good strength/balance. Sit to Stand Transfers # of Assistants: 0 Transfer Surface: Bed Transfer Equipment: Gait belt Level of Assistance: Independent Assessment/Delivery: Assessed Comments: Patient able to stand from low bed height with reliance on upper extremities to push to stand, no physical assistance needed, no adaptive equipment required. Stand to Sit Transfers # of Assistants: 0 Transfer Surface: Bed Transfer Equipment: Gait belt Level of Assistance: Independent Assessment/Delivery: Assessed Comments: Patient able to stand from low bed height with reliance on upper extremities to push to stand, no physical assistance needed, no adaptive equipment required. Balance Static Sitting-Balance: Good (Maintains balance without support) Dynamic Sitting-Balance: Good (Maintains balance without support) Static Standing-Balance: Good (Maintains balance without support) Dynamic Standing-Balance: Good (Maintains balance without support) Gait Assessment/Training Distance (m): 91.8 m Surface: Even, Smooth/hard Device: No device, Gait belt # of Assistants: 0 Level of Assistance: Independent Stability: Appropriate with assistive device. Assessment of Gait: Slightly antalgic pattern due to previous hip surgery, but no physical assistance required, no loss of balance ocurred. Stairs/Curb # Stairs: 3 Rails: 1 Device: Gait belt # of Assistants: 1 Level of Assistance: Modified Independent Stair Navigation Pattern-Ascending: Reciprocal pattern Stair Navigation Pattern-Descending: Reciprocal pattern Quality of Stair Negotiation: Able to negotiate 3 stairs without physical assistance, light relianceon railing, appropriate balance and safety noted. Seated Exercises Seated Exercise - Side Addressed: Bilateral Sitting Surface: Bed Seated Exercise: Ankle pumps Exercise Mode: Active motion against gravity Sets/Repetitions: 1/10 Activity Tolerance Endurance: Endurance does not limit participation in activity Education: - Educated patient/family on the role and goal of physical therapy in acute care setting. Discussed concepts including progression of activity as tolerated, goals for mobility during hospital course, and expectations for physical therapy in acute setting. Educated patient on weight bearing status/activity restrictions and how that alters mobility including but not limited to: during bed mobility, transfers, and ambulation with the appropriate gait aid. - At this time, all of the the patient and family members questions were answered. The following coordination of care occurred today: Patient's nurse was contacted and patient's status was discussed Patient was left in bed at end of session with call light in reach, all needs met and questions answered. Contact monitoring: PPE used during therapy: Therapist was wearing the following PPE throughout entire session: surgicalmask, eye protection, and gloves Patient was wearing a mask during therapy session: yes, when in hallway Family member/caregiver present was wearing a mask: yes Outcome Measures Vega Balance Assessment: 1. Sitting to Standing: Able to stand independently using hands 2. Standing Unsupported: Able to stand safely for 2 minutes 3. Sitting with Back Unsupported but Feet Supported on Floor or on a Stool: Able to sit safely and securely for 2 minutes 4. Standing to Sitting: Sits safely with minimal use of hands 5. Transfers: Able to transfer safely with minor use of hands 6. Standing Unsupported with Eyes Closed: Able to stand 10 seconds safely 7. Standing Unsupported with Feet Together: Able to place feet together independently and stand 1 minute safely 8. Reach Forward with Outstretched Arm While Standing: Can reach forward confidently 25 cm (10 inches) 9. Grain Cleaner Object from Floor from a Standing Position: Able to filler picker slipper safely and easily 10. Turning to Look Behind Over Left and Right Shoulders While Standing: Looks behind from both sides and weight shifts well 11. Turn 360 Degrees: Able to turn 360 degrees safely in 4 seconds or less [address] Alternate Foot on Step or Stool While Standing Unsupported: Able to complete greater than 2 steps needs minimal assist 13. Standing Unsupported One Foot in Front: Able to place foot ahead independently and hold 30 seconds 14. Standing on One Leg: Unable to try needs assist to prevent fall Vega Balance Score: 47 Interpretation: Based on score (45-49), our recommendation for balance compensation is: Recommend trial of cane. Use a cane at least when outdoors. AM[facility] In[facility] Short Form: Interpretation: Clinicians answer the -[facility] In[facility] Short Form based on observed patient activityand/or clinical judgement (ie. patient can be scored without physically performing each activity) Based on scoring guidelines using the raw score value: Those going to home had an average score at or above 18 Those going to facility had an average score at or below 17 Assessment Discharge Therapy Needs - PT: Ongoing skilled physical therapy (May benefit from further out-patientPT to address high level balance at discharge.) Skilled therapy can include physical therapy provided by home health, outpatient clinic, or a post-acute facility. The location of these services is determined by the patient's care team in partnershipwith patient/family. Barriers to Discharge Home: None Clinical Impression of today's session: The patient was admitted for new onset language difficulties and confusion. Over the last 2 weeks hehad had increasing confusion; a CT head showed a left frontal brain mass. At their baseline, the patient is independent with activities of daily living and mobilizes without an assistive device; he reports no falls in the past year. Currently, the patient presents with impairments including: impaired high level dynamic balance as he scored a 47/56 on the Vega Balance Scale indiciating he is at risk for falls. However, he is completing all transfers, ambulation, and stair negotiation independently and had no losses of balance with functional mobility today. He would benefit from additional skilled physical therapy services in the out-patient setting to address high level dynamic balance activities if he wishes to improve this upon discharge. From a physical therapy perspective, the patient is mobilizing well and is at or near his functional baseline for functional mobility at this time. He has no additional PT needs at this time; we will sign off. Mobility recommendations during hospitalization: - Up to chair 3 times per day with assistance from nursing staff. - Ambulate in hallway 3-5 times per day with assistance from nursing staff. Rehab potential: Mr. Orellana has Excellent potential to achieve established physical therapy goalswithin the time frame outlined below. Progress: All PT goals achieved Tiered PT Evaluation Codes: Comorbid Conditions: Cancer, Cardiopulmonary disease Examination elements: 3 Clinical Presentation: Evolving Clinical Decision Making: Moderate complexity clinical decision making Functional Goals: PT Inpatient Goals PT Goal #1: Patient will perform bed mobility including supine <> sit transition without use of special bed features modified independently to demonstrate progress toward functional baseline. PT Goal #1 Status: Achieved PT Goal #2: Patient will demonstrate [id number] transfers with the least restrictive gait aid and modified independence to demonstrate progress toward functional baseline. PT Goal #2 Status: Achieved PT Goal #3: Patient will ambulate 30 meters with the least restrictive gait aid and modified independence or better while executing the task with good safety awareness, stability, and functional strength to demonstrate progress toward functional baseline. PT Goal #3 Status: Achieved PT Goal #4: Patient will be able to ascend/descend 2 stairs per home set-up modified independently while executing the task with good safety awareness, stability, and functional strength to demonstrateability to access home environment and progress toward functional baseline. PT Goal #4 Status: Achieved Plan Patient agrees with the plan of care and goals. Treatment Plan: Plan: Discontinue PT PT Amount: 1 visit per day PT Frequency: One-time visit PT Inpatient Duration : Until goals are met or hospital discharge Requires Inpatient Follow-Up: No PT Plan Comments: Acute PT goals met, no further therapy indicated in this setting. Treatment interventions may include: Treatment/Interventions: Therapeutic functional activity Billing: Time Spent with Patient Evaluations PT Eval - Mod Complexity: 12 min Therapeutic Interventions Therapeutic Activity (min): 12 min Time Tracking Total Timed Units (min): 12 min Total Treatment Time (min): 24 min Rebecca Whiting P.T., D.P.T. Miguel Quiroga M.D. - 10/04/2021 7:16 AM CDTAssociated Order(s): IP CONSULT TO PHYSICAL MEDICINE & REHABILITATION Physical Medicine and Rehabilitation consult (hospital) SUBJECTIVE REQUESTING PROVIDER Shawna Geronimo M.D., M.P.H. REASON FOR CONSULT Altered Mental Status HISTORY OF PRESENT ILLNESS History obtained via review of the EMR and in discussion with the patient and . Mr. Crow Orellana is a right-handed 76 y.o. male with past medical history of atrial fibrillation on Eliquis, COPD, HLD, lung cancer s/p RLL surgery and chemotherapy, follicular lymphoma not on current treatment (previously chemotherapy) admitted for confusion on 10/03/21. Physical Medicine and Rehabilitation was consulted for confusion and new left frontal tumor diagnosis. For the last several week patient's has noted gradually increasing confusion, fatigue, and changes in affect. She initially noticed him having difficulty with math and needing to use his fingers when play cribbage (new for him). She has also noticed a more flat affect with him not being as cheerful. He also had a episode of urinary incontinence without any witnessed seizure like activity by family. On 10/03, patient bought the wrong item at the store. Given all these new changes they sought medical care. [facility] who recommended presenting to [facility] ([place]). At [facility] ED, CT Head notable for left frontal mass with vasogenic edema. He was transferred to [facility]. At [facility], he was admitted to Neurology service. He has plan for brain MRI and CT CAP for further workup and characterization of malignancy. When evaluated today, he had just returned from CT scan. He ambulated from the restroom to his bed without difficulty. He denies headache. No vision changes. Denies numbness or tingling. Denies currently problems urinating or with BM's. The patient lives with his on 1 story house with 2-3 MIGUELANGEL. 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 Hobbies include fishing. Has several family members within 20 miles of home. REVIEW OF SYSTEMS Review of symptoms completed and negative except as noted in the HPI. OBJECTIVE Temperature: [36.2 ??C-36.6 ??C] 36.6 ??C Heart Rate: [68-92] 69 Resp Rate: [13-21] 16 Blood Pressure: (119-179)/(55-87) 131/70 SpO2: [95 %-99 %] 95 % Height: [172.7 cm] 172.7 cm Weight: [80 kg-83.1 kg] 80 kg BMI (Calculated): [26.8 kg/m??] 26.8 kg/m?? Last Stool Occurrence: PHYSICAL EXAM GENERAL: Alert. No acute distress. Resting comfortably in bed. Pleasant. Accompanied by . HEENT: Normocephalic, atraumatic. Oral cavity and tongue are unremarkable. HEART: Extremities warm and well perfused. Radial pulses strong bilaterally. No lower extremity edema. LUNGS: No dyspnea. Breathing comfortably on room air. Symmetric chest rise. EXTREMITIES: No swelling or erythema. No calf tenderness. SKIN: Exposed areas of skin are clean, dry, and intact with no evidence of cellulitis, pressure ulcers, or necrosis. MENTAL STATUS: Oriented to person and time (self corrected with year). Restricted affect. KOKMEN Short Test of Mental Status: Orientation 7/8; Attention 5/7; Learning 2/4 (4 trials); Calculation 0/4; Abstraction 0/3; Construction 3/4; Information 1/4; Recall 0/4. Total score = 15/38. CRANIAL NERVES: Extra ocular muscles intact. Visual guadalupe intact in all quadrants to confrontation.No dysconjugate gaze. Sensation intact to light touch in all three distributions bilaterally. No facial droop. Tongue protrudes midline. Palate elevates symmetrically. MOTOR SPEECH: No dysarthria. Normal prosody, phonation. Speaks in 2-3 word phrases mostly. LANGUAGE: Naming whole objects 2/3. Naming subparts 2/3. Stated that a watchwas a phone. Followssimple and multi-step commands. MUSCLE STRENGTH: (scoring scale: 0=normal to -4=plegic; right/left) All major muscles groups of the bilateral upper and lower limbs have normal and symmetric bulk and strength. -Upper limb: deltoid 0/0; biceps -1/0; triceps -1/0; wrist extensors 0/0; finger extensors 0/0; wrist flexors 0/0; finger flexors 0/0; interossei 0/0. -Lower limb: iliopsoas 0/0, quadriceps -1/0, hamstrings 0/0, anterior tibial 0/0, gastroc-soleus 0/0. TONE: Normal tone throughout upper and lower limbs. No ankle clonus bilaterally. MUSCLE REFLEXES (scale: -4=absent, 0=normal, +4=sustained clonus; right/left): Biceps 0/0, Triceps 0/0, Quadriceps +2/+1, Gastroc-soleus +1/+1. ADRIAN RESPONSE: (right/left) absent/absent. PLANTAR RESPONSE: (right/left) flexor/flexor. GAIT: Normal sitting and standing balance. Pxn-pt-[id number] is independent. COORDINATION: Difficulty with JHON on right side. Normal [id number]. Normal [id number]. Mild apraxia with right upper extremity. SENSATION: Intact to light touch in bilateral upper and lower extremity DIAGNOSTICS I have reviewed the diagnostic labs and imaging from this hospitalization. CT Head (10/03/21): IMPRESSION: 1. Probable mass in the left frontal lobe with associated vasogenic edema, local mass effect, and rightward shift at the level of the septum pellucidum by 8 mm. Findings could reflect lymphoma given patient history. Additional considerations include other primary or metastatic brain lesions or intracranial abscess. Recommend MRI to better characterize. ASSESSMENT / PLAN #1 Mass Brain #2 Confusion Mr. Crow Orellana is a right-handed 76 y.o. male with past medical history of atrial fibrillation on Eliquis, COPD, HLD, lung cancer s/p RLL surgery and chemotherapy, follicular lymphoma not on current treatment (previously chemotherapy) admitted for confusion on 10/03/21. Physical Medicine and Rehabilitation was consulted for confusion and new left frontal lobe tumor diagnosis. He is currently being worked up for this new left frontal lobe tumor. CT CAP and MRI are planned fortoday. Current deficits are mainly with cognition, given his Kokmen score of 15/38. He was previously active without any functional impairments. Retired and living with his . PT, OT, and E BUSINESS PROJECT MANAGER ordersare in place, with their evaluations pending. Will follow patients hospital course and adjust rehab plans as indicated. The Physical Medicine and Rehabilitation Brain Consultation Service will proceed with the rehabilitation plan of care as outlined. Please see the therapist's notes for progress with therapy. Patient status and progress is reviewed daily during the week and the plan of care is updated as indicated. Please contact the PM&R Brain Consult service with questions or concerns. This plan was discussed and formulated with Dr. Presley who is in agreement. Please see his supervisory note for further details. EDUCATION I discussed the diagnosis and treatment plan in detail. The patient expressed understanding of the content. No apparent learning barriers were identified; learning preferences include listening. Miguel Quiroga M.D. PGY-2 2:23 PM CDT 10/04/2021 Associated attestation - Nikita Presley M.D., Ph.D. - 10/04/2021 3:12 PM CDT I saw and evaluated the patient, participating in the thurman portions of the service. I reviewed the resident/fellow???s note. I agree with the resident/fellow???s findings and plan. Mr. 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 These changes ultimately led to a visit to the [place] [facility] and a head CT (images I have observed him QREADS) which revealed a right frontal mass with significant surrounding edema. He was transferred to [facility] for further evaluation and care. As his subsequent history is well noted by Dr. Quiroga in his accompanied consultation, I will highlight only its most salient aspects here. As Dr. Martin notes, Mr. Orellana's course has been quiet. I examined him shortly after he had returned from a MRI (which confirmed the presence of the mass and noted that it was peripherally enhancing, centrally necrotic, and compatible with either a metastasis or a primary tumor). My examination is similar to that of Dr. Quiroga's. Mr. Orellana is quiet, alert, cooperative, and vague in his responses. He has a mild right hemiparesis most evident in his right elbow extension hipflexors knee and knee extensors; symmetric appreciation of light touch; and a mildly impaired satellite sign with the left hand revolving around the right in both directions. There may also be a mild touch of apraxia in his right upper extremity most notable when he attempted to extend his wrist. His cranial nerve examination shows a downgoing right nasolabial fold at rest (his was not sure about the asymmetry being present previously but had not noticed any facial changes). Mr. Orellana is currently the undergoing initial portion of his evaluation. He is functioning quitewell and we will hold off on therapy until the direction of his treatment becomes clear. I discussed the above with the patient and his . Ketty Mathews M.D. - 10/03/2021 9:20 PM CDTAssociated Order(s): IP CONSULT TO NEUROLOGY SUBJECTIVE REFERRAL RMB W05 Primary ED staff: Dr. Ng CHIEF COMPLAINT / REASON FOR VISIT Confusion, brain tumor HISTORY OF PRESENT ILLNESS Crow Orellana is a 76 y.o. right handed male with pertinent past medical history of lung cancer (possibly adenocarcinoma, receives care at [facility] and not available; diagnosed in 2019, s/p RLL surgery, and chemotherapy, uncertain agents), follicular lymphoma (dx 2018, unknown chemo; diagnosed when ly mphadenopathy found on screen for AAA), COPD, former smoking, atrial fibrillation on Eliquis, hyperlipidemia who presents for evaluation of language concerns found to have a tumor with significant associated edema an outside ED. History obtained via patient and . Patient's has noticed for the last 2 weeks or so that he has been increasingly more confused. 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 He also has started to speak glass in full sentences, only saying yes or no. He hasbeen this a little bit more sleepy, needing to take 1 nap a day or so. Seems a bit more depressed. The other day he started to notice that his left foot feels strange, he cannot describe it more than this. This morning patient told his he needed to go to the store was able to tell her what he needed to get, she let him drive and they got to the store but he bought the wrong battery. For this reason she brought him to the emergency department. In the emergency department in [place] he underwent head CT A probable mass in the left frontal lobe with associated vasogenic edema. He was hypertensive initially to 179/68 but did blood pressures have been lower and 140, he has been intermittently in atrial fibrillation at a rate mostly controlled in the 70s. He underwent urinalysis which was normal, CBCand CMP which were unremarkable. Case was discussed with Dr. Shipley neurology who recommended transfer to [facility] forevaluation the emergency department. On arrival patient was vitally stable, patient fully alert but with evidence of aphasia, dyslexia and acalculia. Patient denies any symptoms initially but his reminded him of the sensory changes left foot. Denied chest pain, shortness of breath, recent fever chills, recent infection, recent diarrhea, nausea, vomiting, headache, weakness, falls. Patient last took Eliquis this morning 10/03. The reports that patient had 1 episode of incontinence, this was witnessed by family, reportedly there was no loss of consciousness or seizure type movements. He was standing during this episode. It is unclear exactly with the etiology of this was but it does not sound highly concerning for seizure. HISTORY AND REVIEW OF SYSTEMS Crow Orellana's history was reviewed including allergies, current medications, review of systems, family history, medical and surgical history, social history, and problem list. Pertinent information is outlined in the history of present illness. SOCIAL HISTORY - Tobacco use: Quit smoking in 2012, does not remember how many years but smoked more than 1 pack a day - Alcohol use: No alcohol use MEDICATIONS: No current facility-administered medications for this encounter. Current Outpatient Medications: apixaban (ELIQUIS) 5 mg tablet, Take 5 mg by mouth 2 (two) times a day., Disp: , Rfl: atorvastatin (LIPITOR) 20 mg tablet, Take 0.5 tablets by mouth at bedtime., Disp: , Rfl: cholecalciferol, vitamin D3, 25 mcg (1,000 Unit) tablet, Take 25 mcg by mouth daily., Disp: , Rfl: dilTIAZem (TIAZAC/TAZTIA XT) 180 mg ER capsule, Take 180 mg by mouth daily., Disp: , Rfl: famotidine (PEPCID) 20 mg tablet, Take 20 mg by mouth 2 (two) times a day., Disp: , Rfl: folic acid 1 mg tablet, Take 1 mg by mouth daily., Disp: , Rfl: magnesium oxide 400 mg magnesium tablet, Take 400 mg by mouth daily., Disp: , Rfl: amoxicillin (for_AMOXIL) 500 mg capsule, Take 500 mg by mouth as needed (4 tabs one hr prior to dental work)., Disp: , Rfl: aspirin [address] tablet, Take 81 mg by mouth daily., Disp: , Rfl: metoprolol tartrate (LOPRESSOR) 50 mg tablet, TAKE ONE-HALF TABLET BY MOUTH TWICE A DAY, Disp: , Rfl: multivitamin capsule, Take 1 tablet by mouth daily., Disp: , Rfl: predniSONE (DELTASONE) 20 mg tablet, TAKE ONE TABLET BY MOUTH EVERY DAY FOR 14 DAYS -TAKE WITH FOOD-DO NOT STOP TAKING ABRUPTLY, Disp: , Rfl: raNITIdine (for_ZANTAC) 150 mg tablet, Take 150 mg by mouth 2 (two) times a day., Disp: , Rfl: sulfamethoxazole-trimethoprim (BACTRIM,SEPTRA) 400-80 mg per tablet, TAKE 1 TABLET BY MOUTH EVERY DAY TO PREVENT INFECTION WHILE ON HIGH DOSE PREDNISONE, Disp: , Rfl: OBJECTIVE PHYSICAL EXAM Blood pressure 132/80, pulse 79, temperature 36.6 ??C, temperature source Oral, resp. rate 13, weight 83.1 kg, SpO2 97 %. Body mass index is 28.42 kg/m??. General: Patient intermittently in sinus and atrial fibrillation Neurologic: Patient fully alert, able to follow midline, lateral, cross-body commands with no left-right confusion; Patient oriented to month, initially says it is 2019 but then corrects himself to 2021. Unable todo simple calculations, able to name common objects (pen, thumb) but unable to put name more remote objects (name badge, computer mouse), able to read simple phrases but has difficulty with longer sentences, when describing the cookie thief picture speaks in short sentences and only describes certain objects in the seen (cookie jar, falling off a ladder, water flowing) but able to identify that therefor 3 figures in the seen. Makes errors with repetition. Pupils 4 mm equally reactive, no visual field cut or neglect, full extraocular movement without nystagmus. Full and symmetric facial movements, tongue protrudes midline. No dysarthria. Able to maintainbilateral upper extremities 10 seconds without drift, no pronator drift, able to maintain bilateral lower extremities 5 seconds without drift. No ataxia on mnfqhd-csme-ftjova. Plantar responses downgoing bilaterally. Symmetric sensation to light touch in hands and feet. Mildly wide-based stance, with walking he is mildly impulsive and unsteady but not clearly ataxic. Able to tandem walk without significant difficulty. Negative Romberg. DATA I have reviewed all relevant diagnostics. Assessment #1 Left frontal brain tumor, suspected metastatic disease #2 Follicular lymphoma, status post chemotherapy #3 Lung cancer (possibly adenocarcinoma), status post surgery and chemotherapy #4 Cerebral edema #5 Brain compression #6 Aphasia #7 Gait instability #8 Atrial fibrillation on Eliquis Crow Orellana is a 76 y.o. male who presents with language dysfunction found to have a left frontal mass concerning for metastatic disease with associated edema. Differential concerning for metastatic disease of lung cancer versus follicular lymphoma, differential also includes abscess however this is less likely given the clinical scenario. I suspect this is more likely metastatic disease from his lung cancer given the location of the to-white junction and degree of associated vasogenic edema, however given the significant possibility that this could represent lymphoma we will hold off oninitiation of dexamethasone until we have a more clear clinical picture in the event that we may ultimately need a biopsy. I discussed with patient and option of doing outpatient workup versus admission to initiate the workup, they ultimately would feel more comfortable with admission overnight. We will proceed with the workup as below, we will hold Eliquis in the event that we need a biopsy. RECOMMENDATIONS Admit to General Neurology Monitor for signs of hydrocephalus (decreased level of alertness, restricted upgaze, new focal neurologic deficits) Maintain head of the bed 30?? Consult PT/OT/speech aphasia Hold Eliquis Do not initiate dexamethasone due to concern that this could represent [employer] WORK[employer] lymphoma Ok to continue home medications including aspirin 81, Lipitor 20, diltiazem, Pepcid, folic acid, metoprolol-- confirm current doses Clarify with patient if he is currently taking prednisone and what dose, this was ordered and looks like it was plan to discontinue in August, if he is currently on this will need to continue to avoid adrenal insufficiency Please obtain MRI brain with and without contrast with fiducials Please obtain CT chest abdomen pelvis with contrast Please obtain serum flow cytometry In the morning please work to [facility] Consider consult with Neurosurgery and Oncology versus hematology in the morning Hold DVT prophylaxis for now while awaiting CT chest abdomen pelvis in the event we may need a biopsy Med rec and code status per admitting resident Thank you for the opportunity to participate in the care of Crow Orellana. This an Emergency Neurology consultation. Please page [phone] with any additional questions. This document has been transcribed using [employer] Direct medical dictation software. Proofreading wasperformed in real time but errors may still be present. Ketty Mathews M.D. PGY-4 Neurology Resident documented in this encounter Nursing Notes Cynthia Du R.N. - 10/09/2021 2:25 PM CDT Problem: PAIN - ADULT Goal: PT VERBALIZES/DEMONSTRATES ADEQUATE COMFORT LEVEL OR BASELINE Outcome: Adequate for Discharge Problem: KNOWLEDGE DEFICIT Goal: Patient/family/caregiver demonstrates understanding of disease process, treatment plan, medications, and discharge instructions Outcome: Adequate for Discharge Problem: INFECTION - ADULT Goal: Absence of infection during hospitalization Outcome: Adequate for Discharge Problem: SKIN/TISSUE INTEGRITY Goal: Skin/Tissue integrity maintained or improved Outcome: Adequate for Discharge Goal: Oral and Nasal mucous membranes remain intact Outcome: Adequate for Discharge Problem: SAFETY ADULT Goal: Maintain a safe environment Outcome: Adequate for Discharge Problem: DISCHARGE PLANNING Goal: Patient discharge needs identified Outcome: Adequate for Discharge Problem: SAFETY ADULT - RISK FOR FALL AND OR FALL INJURY Goal: Patient remains free from fall/fall injury Outcome: Adequate for Discharge Shift Goals: Clinical Goals for the Shift: pt will dc today Identify possible barriers to meeting goals/advancing plan of care: n/a End of Shift Summary: VSS and neuros stable and unchanged. No pain. All questions answered and education given to pt and pts family. Escort called for the front. BP 134/64 (BP Location: Right arm;Upper, Patient Position: Sitting) Pulse 63 Temp 36.6 ??C (Oral) Resp 14 Ht 172.7 cm Wt 84 kg SpO2 97% BMI 28.16 kg/m?? Electronically signed by: Cynthia Du R.N. 10/09/21 2:27 PM CDT Leanne Armendariz, R.R.T., L.R.T. - 10/07/2021 6:46 PM CDT Patient is a 76 y.o. male admitted on 10/03/2021 Alert Information: Plan of Care: Continue to monitor patient's respiratory status while in ICU. Titrate supplemental oxygen as tolerated. Principal Problem Mass Brain Oxygen Therapy $Delivery Method: Nasal cannula Arterial Line 10/07/21 Right Radial (Active) Placement Date/Time: 10/07/21 c) 1557 Procedural Pause Completed: Yes Catheter Time Out Checklist Completed: Yes Hand Hygiene Performed Prior to Insertion: Yes Site Prep: Chlorhexidine (Preferred) Sterile Barriers Used : Cap;Gloves;Gown;Large d... Social History Tobacco Use Smoking Status Former Smokeless Tobacco Never Recent Labs 10/07/21 1412 PO2 ART 143 H PCO2 ART 43 PH ART 7.37 Eve Yoder R.N. - 10/06/2021 3:43 PM CDT Shift Goals: Clinical Goals for the Shift: Pt will remain safe during shift Identify possible barriers to meeting goals/advancing plan of care: None End of Shift Summary: Vital signs stable. Up to chair for majority of shift. Independent in the room. Family at bedside. Plan to be NPO at midnight for biopsy and possible resection tomorrow morning. Problem: SAFETY ADULT Goal: Maintain a safe environment Outcome: Progressing Note: Independent in the room. Up to chair for majority of shift. Family present at bedside. Rina Alvarez R.N. - 10/05/2021 5:55 PM CDT Shift Goals: Clinical Goals for the Shift: Pt will remain safe and free of falls/injuries Identify possible barriers to meeting goals/advancing plan of care: End of Shift Summary: CT in AM, possible brain biopsy/resection tomorrow or Sunday if findings are significant with lung cancer. If lymphoma, pt to undergo possible chemotherapy and radiation. Formallyassessed by OT, found to have mild aphasia. Family at bedside throughout shift. Problem: INFECTION - ADULT Goal: Absence of infection during hospitalization Outcome: Progressing Note: Administered IV Dexamethasone, will transition to PO tonight. Problem: SAFETY ADULT Goal: Maintain a safe environment Outcome: Progressing Note: Up at nitin in room independently under supervision. Remained safe and free of falls/injuries. Problem: DISCHARGE PLANNING Goal: Patient discharge needs identified Outcome: Progressing Note: When medically stable, pt to discharge with [facility] provided by [facility] and [facility]. Esau Mccord R.N., CAsafS.R.N., O.C.N. - 10/05/2021 5:53 AM CDT Shift Goals: Clinical Goals for the Shift: Patient will remain safe throughout this shift. Identify possible barriers to meeting goals/advancing plan of care: None End of Shift Summary: Received patient around 2350H, Patient alert to person and time. Patient instructed on NPO for possible procedure. Patient vitally stable Problem: PAIN - ADULT Goal: PT VERBALIZES/DEMONSTRATES ADEQUATE COMFORT LEVEL OR BASELINE Note: Patient denies pain Problem: SKIN/TISSUE INTEGRITY Goal: Skin/Tissue integrity maintained or improved Note: Encouraged to turn side to side Problem: SAFETY ADULT Goal: Maintain a safe environment Note: Patient call light appropriate. Utilized bed alarm Gayle Delgado R.N. - 10/04/2021 10:14 PM CDT Shift Goals: Clinical Goals for the Shift: Patient will remain safe throughout this shift. Identify possible barriers to meeting goals/advancing plan of care: None End of Shift Summary: There is an order okaying his to stay overnight. He has been vitally stable and rounded on in regular intervals. Problem: PAIN - ADULT Goal: PT VERBALIZES/DEMONSTRATES ADEQUATE COMFORT LEVEL OR BASELINE Outcome: Progressing Note: Patient had no reports of pain this shift. Problem: SKIN/TISSUE INTEGRITY Goal: Skin/Tissue integrity maintained or improved Outcome: Progressing Note: Patient can ambulate in the room as needed. Problem: SAFETY ADULT Goal: Maintain a safe environment Outcome: Progressing Note: Patient has the call light within reach and his at his bed side. Lanie Lomeli R.N. - 10/04/2021 8:42 AM CDT IVAD Contrast Injection Assessment Details: What type of IVAD? Tunneled, right chest, single lumen If power???What identifiers were used (2 needed or Rad approval)? 3 Bumps on [place] Shape Septum and Xray/Fluid Dynamicist with CT label viewable (Date if applicable October 03, 2021) Tip placement verified? Location: SVC/RA junction Date (if applicable): October 03, 2021 Blood return verified? Yes VAPP Orders (Nurse to use Saline or Heparin post scan): saline only Is patient staying accessed after scan? yes documented in this encounter OR Notes Op Note - Manny Cordova M.D. - 10/07/2021 2:37 PM CDT Pre-op Diagnosis Mass Brain Post-op Diagnosis Mass Brain A emergency veterinary assistant actively participated and was necessary for one or more of the following: opening,exposure and visualization during the case, maintaining hemostasis, wound closure resulting in its safe and expeditious completion. Findings As expected. Complications None Operative Note Narrative Procedures Performed: 1. Left frontal craniotomy for tumor resection. 2. Medtronic Frameless stereotaxis. 3. Resection of tumor with microneurosurgical technique. Description of Procedure: The patient was brought to the operating room and induced under general endotracheal anesthesia. He was then positioned supine with the head slightly extended and rotated gently to the right. The head was held in place with the Rodriguez fish header. All pressure points were carefully inspected padded.The preoperative MRI was registered to the patient using the [employer] navigation system viascalp tracing and fiducials. The extent of the mass was marked out at the skin with the [email or web address] system. The hair in the Left frontal region was clipped. An approximately 15 cm lazy pterional incision, extending from the left 1cm anterior to the tragus to the right of the patient's 's peak. This region was cleansed with iodine soap and, where the hair had been clipped, alcohol. After procedural pause identifying the patient, side, procedure, and that he had received preoperative antibiotics, dexamethasone, mannitol, and levetiracetam, we proceeded. The proposed incision was infiltrated with bupivacaine with epinephrine. The entire region was then prepped and draped in standard fashion. The incision was opened sharply and carried down through subcutaneous tissues with unipolar cautery.We took care not to violate the temporalis muscle. Hemostasis was obtained in the scalp using Robyn clips. The scalp flap was mobilized and retracted with fishhooks. We then fashioned 2 rosey holes, incl uding one to the left of the superior sagittal sinus using the match-stick semi- cutting drill bit [employer] high-speed drill. After the dura was carefully stripped using a combination of blunt instruments, these rosey holes were connected using the B1 craniotome. The bone flap was then carefully elevated and placed aside. Tack-up suture holes were drilled in the margin of the craniotomy as silk sutures were used to affix the dura to the craniotomy edge after the edges of the bone were lined with Surgicel. The wound was linedwith cotton patties and Ray-Millicent sponges in our usual fashion. The dura was opened sharply in a horseshoe fashion based medially towards the sinus. The dural flap in all dural edges were covered with cotton patties. Using initially loupe magnification and wirelessheadlight and with frequent neuronavigation reference, we proceeded to make a corticotomy just a few millimeters posterior to the posterior edge of the mass. Using neuronavigation, we found our planes around the tumor. Using blunt dissection, suction, and CUSA these planes were deepened until we reached normal white matter. We then proceeded to resect the majority of the remaining mass en bloc with bipolar cautery and CUSA ultrasonic aspiration. Frequent neuronavigation was performed. Samples were sent for intraoperative and permanent pathologic examination. The preliminary intraoperative diagnosiswas consistent with metastatic carcinoma. The microscope was maneuvered into the field. All further resection and extensive hemostasis was performed with microneurosurgical technique. Further minor amount of tumor tissue was removed. We then meticulously achieved hemostasis in the resection cavity using surgicel and bipolar cautery.Dura was reapproximated with interrupted silk sutures. Prior to the final dural closure the subduralspace was filled with saline. Once the dura was closed the wound was irrigated copiously with saline. The bone flap was replaced and held in place with multiple thin titanium plates and screws. The wound was again irrigated copiously with saline. Vancomycin powder was placed in subgaleal space. The wound was closed in anatomic layers using 2-0 vicryl for galea. The skin was closed with stainless steel olga. All counts were correct at the end of the case. The wound was dressed and patient was removed from the [place] fish header. The case was then turned over to Anesthesia. There were no apparent complications. Manny Cordova M.D. Brief Op Note - Manny Cordova M.D. - 10/07/2021 2:37 PM CDT Pre-op Diagnosis Mass Brain Post-op Diagnosis Mass Brain Findings As expected. Complications None Manny Cordova M.D. documented in this encounter ED Notes London Ng M.D. - 10/03/2021 8:37 PM CDT I have personally seen and examined this patient. I have fully participated in the care of this patient. I have reviewed all clinical information including history, physical exam, orders, and plan. I agree with the note of the resident. Patient has a history of lymphoma. Past couple of weeks the patient's notes that he has been withdrawing and LEs friendly and outgoing than he normally is. He has been very withdrawn verbally onlyanswering in 1 word sentences and seems to be confused about things. This prompted them to go to [facility] for for evaluation and a CT scan showed that he had likely a brain mass of unclear etiology. Onexam cranials, senses, motor are all intact and he does answer with 1 word. He had been fishing and had caught fish and when I asked if he truly had her head and he said no as his only answer. said he actually cause several. So not sure if he is not of we bit confused as well. CT from the outsidewas reviewed and shows a large mass frontally on the left with vasogenic edema. Think we need neurology to see the patient. He is likely going to need a brain biopsy. Await that review. Addendum: Neurology has seen the patient and requested that he not get steroids which I expected secondary to the concerned that this was lymphoma. We will admit him to General neuro for further definitive workup. Final Diagnoses: as of 10/04/211451 Mass Brain London Ng M.D. 10/04/211452 Linda Noriega M.D., Ph.D. - 10/03/2021 8:02 PM CDT SUBJECTIVE CHIEF COMPLAINT/REASON FOR VISIT Altered Mental Status HISTORY OF PRESENT ILLNESS Patient is a 76-year-old male with past medical history notable for follicular lymphoma that is notcurrently being treated, atrial fibrillation on Eliquis (although both EKGs today shows sinus rhythm), surgically approached should malignant neoplasm of lower lobe of right lung. Couple weeks ago his started observing a progressive worsening in in patient's mental status. She explains that patient use it to be outgoing and communicative and for the past couple of weeks he has presenting a bluntaffect and being quiet almost the whole time. She also states the patient is confused on daily activities like finding his pants on his closet. Besides that patient denies any other symptoms, is alerted to person place and time and has the appearance of not being himself with some vague sight and confusing answers. Patient was told to come here from a previous ED where he did a head CT showing: IMPRESSION: 1. Probable mass in the left frontal lobe with associated vasogenic edema, local mass effect, and rightward shift at the level of the septum pellucidum by 8 mm. Findings could reflect lymphoma givenpatient history. Additional considerations include other primary or metastatic brain lesions or intracranial abscess. Recommend MRI to better characterize. Patient's also hands me a CT result from September 15, when patient did an abdominal and chest CT as a follow-up on his follicular lymphoma. CT showed interval enlargement of a left pelvic lymph nodes, suspicious for progression of the patient's known follicular lymphoma. Essentially unchanged mesenteric gustavo enlargement and fat stranding. There are new tiny pulmonary nodules in the right lower lobe measuring up to 3 mm. Hypoenhancing lesion in the lower pole of the right kidney that is poorly visualized, though suspicious for a small renal cell carcinoma. REVIEW OF SYSTEMS Constitutional: Negative for fever. HENT: Negative for sore throat. Eyes: Negative for visual disturbance. Respiratory: Negative for shortness of breath. Cardiovascular: Negative for chest pain. Gastrointestinal: Negative for abdominal pain. Genitourinary: Negative for dysuria. Musculoskeletal: Negative for back pain. Skin: Negative for rash. Neurological: Negative for headaches. Psychiatric/Behavioral: Positive for behavioral problems and confusion. OBJECTIVE Initial Vitals Temperature Pulse Rate Heart Rate Resp Rate Blood Pressure SpO2 10/03/21 1657 10/03/21 1655 -- 10/03/21 1655 10/03/21 1657 10/03/21 1655 36.4 ??C 71 18 139/63 97 % Pain Score -- PHYSICAL EXAMINATION Constitutional: Nursing note and vitals reviewed. He is cooperative. No distress. HENT: Head: Atraumatic. Eyes: Conjunctivae are normal. Cardiovascular: Normal rate and regular rhythm. Capillary refill: takes less than 3 seconds Pulmonary/Chest: Breath sounds normal. Abdominal: Soft. exhibits no distension. Musculoskeletal: General: No deformity. Neurological: Alert. Skin: Skin is intact and normal color. Psychiatric: Speech pattern is normal. Blunt. Cognition and memory are impaired. ASSESSMENT/PLAN Patient is a 76-year-old male with a past medical history most significant for follicular lymphoma that is not currently being treated but with recent abdominal CT suggesting disease progression. Patient also known to have atrial fibrillation on Eliquis, although AFib was not documented in the EKG here. Patient coming today with his who reports a history of changing on his behavior, developing a flat and blunted affect and presenting some confusion and memory loss on routine details. CT head from previous ED visit earlier today showing mass in the left frontal lobe with associated vasogenic edema. Patient coming in for further evaluation from Neurology and Oncology. Patient will be admitted to general Neurology. Final Diagnoses: as of 10/04/21 0048 Mass Brain Linda Noriega M.D., Ph.D. Resident 10/04/21 0049 Olaf Diaz R.N. - 10/03/2021 4:56 PM CDT For the past couple of weeks, pt's has noted pt has been withdrawing and having trouble expressing himself verbally. She states he typically talks a lot but has not been. She states he has also had some confusion. He was brought to the [place] ED and a CT scan showed a brain tumor. He is here for further neurology work up. Olaf Diaz R.N. 10/03/21 1659 documented in this encounter Miscellaneous Notes Hospital Course - Pratima Kellogg M.D., Ph.D. - 10/04/2021 3:49 AM CDT Mr. Crow Orellana is a 76 y.o. male with medical comorbidities significant for lung cancer (possibly adenocarcinoma[facility]; diagnosed in [facility], s/p RLL surgery, and chemotherapy, uncertain agents), follicular lymphoma (dx 2018, unknown chemo; diagnosed when lymphad enopathy found on screen for AAA), COPD, former smoking, atrial fibrillation on Eliquis, hyperlipidemia who presents for evaluation of language concerns found to have a tumor with significant associated edema an outside ED. reports that over the past 2 weeks, patient has been more fatigued/sleepy, confused, and speaking in shorter sentences. The morning of 10/03, he was at the store with his and he bought the wrong item. Due to her ongoing concerns, she brought him to an ED in [place]. In the ED, vitals were notable for a BP max of 179/68, intermittent aFib (rate around 70s). Labs were unremarkable. CT head show a probably mass in the left frontal lobe with associated vasogenic edema. He was transferred to [facility] for evaluation in the ED. He was admitted to the general neurology service for further evaluation and management. 10/04/2021 CT chest abdomen pelvis showed ill-defined hazy mesentery in the central abdomen with a few mildly enlarged lymph nodes or soft tissue nodules. Indeterminate mildly enlarged left iliac lymph node. Indeterminate 7 mm sclerotic lesion in the right iliac bone. No findings of malignancy in the chest. The reticular and groundglass opacities in both lungs have significantly improved since 08/15/2020 and were likely infectious or infl ammatory. 10/04/2021 brain MRI showed 4.2 x 2.9 x 3.6 cm (AP x TV x CC) peripherally enhancing, centrally necrotic and diffusion restricting left frontal lobe mass with increased intralesional rCBV and surrounding vasogenic edema with 8 mm of rightward midline shift, subfalcine herniation, and generalized left frontal lobe sulcal effacement. He was taken to the operative room 10/07/[address] Jackson and Dr. Cordova for the procedure listed above. The intraoperative as well as the immediate postoperative course were uncomplicated. He was transferred from the PACU to the Neurosciences ICU. He did well in the ICU and was transferred to the general Neurosurgical floor the following day. Post-operative MRI was obtained to serve as a baseline against which future imaging would be compared, and it demonstrated gross-total resection. Occupational therapy and physical therapy were consulted for assistance with mobilization and physical therapy, and the physical medicine and rehabilitation team was consulted to determine candidacy for inpatient rehabilitation. He had an overall uneventful recovery. Shortly after surgery, he was ambulating with minimal assistance, voiding independently, and tolerating an oral diet. He had optimal pain control on oral medications. His incision remained clean and intact. After meeting dismissal criteria and at the recommendations of PT/OT, he was discharged home with intermittent supervision and family support. Clear return precautions were provided, and specific dismissal instructions were reviewed. All appropriate follow-up appointments and/or imaging were scheduled. documented in this encounter Plan of Treatment Upcoming Encounters Date Type Specialty Care Team Description 11/18/2021 Appointment Radiation Oncology Luiz Nagy M.D. [address] [place] [address] [phone] (Wo rk) documented as of this encounter Procedures Procedure Name Priority Date/Time Associated Comments Diagnosis MR BRAIN WITHOUT AND RAD - Routine 10/08/2021 9:59 Res ults for WITH IV CONTRAST (most inpatients AM CDT this pr ocedure and all are in the outpatients) results section. CBC WITH Routine 10/08/2021 5:03 Results for DIFFERENTIAL, B AM CDT this procedu re are in the results section. BASIC METABOLIC Routine 10/08/2021 5:03 Results f or PANEL, S/P AM CDT this procedure are in the results section. REMOTE OXIMETRY [...] cedure S are in the results section. BASIC METABOLIC Routine 10/05/2021 6:49 Results f or PANEL, S/P AM CDT this procedure are in the results section. MR BRAIN [...] this procedure are in the results section. documented in this encounter Results MR Brain without and with IV Contrast [...] Kellogg M.D., Ph.D. IMG MRI PROCEDURES (ABNORMAL) Basic Metabolic Panel (10/08/2021 5:03 AM CDT) P athologist Signature Potassium, S 4.5 3.6 [...] 10/08/2021 DTL Black/ mL/min/BSA 5:44 AM CDT [place] Comment: ----ADDITIONAL INFORMATION---- Estimated GFR calculated using [...] Organization Address City/State/ZIP Code Phon e Number [facility] - [address] [place], [place] [address] [facility] [place] [address] [facility] [address] [facility] (ABNORMAL) CBC with Differential, Blood (10/08/2021 5:03 AM CDT) [employer] Method Time Signature Hemoglobin 10.9 (L) 13.2 [...] Laterality Blood (Blood, 10/08/2021 5:03 AM 10/09/19 5:15 Venous) CDT AM CDT Pratima Kellogg M.D., Ph.D. LAB BLOOD ADD-ON Performing Organization Address City/State/ZIP Code Phon e Number [facility] - [address] [place] [address] [facility] [place] [address] [facility] [address] [facility] Surgical Pathology, Frozen Lab (10/07/2021 3:34 PM CDT) Component Value Ref Test Analysis Performed Pathologis t Range Method Time At Signature 10/12/2021 STMA 8:27 AM CDT Participated in Yvonne Lam, 10/12/[address] [facility] -Pathology 8:27 AM Interpretation Fellow CDT Report [...] frozen and permanent sections. ??Grossed by Zelda PaezHYina, RIC([facility]). B. ??Received fresh labeled left frontal brain lesion #2 is a 4.2 x 3.5 x 2.5 cm portion of brain. ??Park Landscape Architect tissue submitted for frozen and permanent sections. Grossed by Zelda PaezHYina, RIC([facility]). Block Summary A Left frontal brain lesion 10/13/19 STMA A1 Left frontal brain lesion-frozen 8:27 AM A2 Left frontal brain lesion 2 CDT B Left frontal brain lesion #2 B1 Left frontal brain lesion #2 - frozen B2 Left frontal brain lesion #2-2 B3 Left frontal brain lesion #2-3 B4 Left frontal brain lesion #2-4 Interpretation FINAL DIAGNOSIS 10/12/[address] [facility] 8:27 AM A. ??Brain, left frontal lesion, [...] LAB SURG PATH ORDERABLES Performing Organization Address City/[facility] Phon e Number [facility] - [address] [place], [place] [address] [place] [address] [facility] [address] [facility] Glucose, Whole Blood (10/07/2021 2:12 PM CDT) athologist Signature Glucose 127 70 - 140 10/07/2021 2:15 STMA mg/dL PM CDT Specimen Anatomical Collection Method Collection Time Receive d Time (Source) Location / / Volume Laterality Blood (Blood, 10/07/2021 2:12 PM 10/08/19 22 2:12 Arterial Line) CDT PM CDT Magdaleno Geronimo M.D. LAB BLOOD TROPONIN Performing Organization Address City/[facility] Code Phon e Number [facility] - [address] [place], [place] [address] [place] [address] [facility] [address] [facility] Potassium, Blood (10/07/2021 2:12 PM CDT) athologist Signature Potassium, B 4.3 3.6 - 5.2 10/07/2021 STMA mmol/L 2:15 PM CDT Specimen Anatomical Collection Method Collection Time Receive d Time (Source) Location / / Volume Laterality Blood (Blood, 10/07/2021 2:12 PM 10/08/19 22 2:12 Arterial Line) CDT PM CDT Magdaleno Geronimo M.D. LAB BLOOD NON ADD-ON Performing Organization Address City/[facility]/ZIP [facility] Phon e Number [facility] - [address] [place], [place] [address] [place] [address] [facility] [address] [facility] Sodium, B (10/07/2021 2:12 PM CDT) athologist Signature Sodium, B 137 135 - 145 10/07/2021 2:15 STMA mmol/L PM CDT Specimen Anatomical Collection Method Collection Time Receive d Time (Source) Location / / Volume Laterality Blood (Blood, 10/07/2021 2:12 PM 10/08/19 2:12 Arterial Line) CDT PM CDT Magdaleno Geronimo M.D. LAB BLOOD NON ADD-ON Performing Organization Address [facility] Phon e Number [facility] - [address] Calcium, Ionized (10/07/2021 2:12 PM CDT) athologist Signature Calcium, 4.67 4.65 - 5.30 10/07/2021 STMA Ionized, B mg/dL 2:15 PM CDT Specimen Anatomical Collection Method Collection Time Receive d Time (Source) Location / / Volume Laterality Blood (Blood, 10/07/2021 2:12 PM 10/08/19 2:12 Arterial Line) CDT PM CDT Magdaleno Geronimo M.D. LAB BLOOD NON ADD-ON Performing Organization Address City/[facility] Phon e Number [facility] - [address] [place], [place] [address] [address] (ABNORMAL) Blood Gas with Coox, Arterial (10/07/2021 2:12 PM CDT) P athologist Signature pO2 143 (H) 83 - [...] Organization Address City/State/ZIP Code Phon e Number [facility] - [address] [place], [place] [address] [facility] [place] [address] ABORh Problem, RBC (10/07/2021 2:10 PM CDT) P athologist Signature ABORh A Pos Not applicable 10/07/2021 DTL 3:20 PM CDT Specimen Anatomical Collection Method Collection Time Receive d Time (Source) Location / / Volume Laterality Blood 10/07/2021 2:10 PM 2 2:14 CDT PM CDT Resulting Agency Comment Drawn in OR by [id number] Marybel Gillespie APRN, CRNA LAB BLOOD BANK TEST ORDERABL ES Performing Organization Address City/[facility]/ZIP [facility] Phon e Number [facility] [address] [place], [place] [address] [facility] [place] [place] [address] Type and Screen (with reflex Antibody ID) (10/07/2021 2:10 PM CDT) Patholo gist Method Time Signature ABORh See Addl Not 10/07/2021 STRM Testing applicable 3:19 PM CDT Antibody Negative Negative 10/07/2021 STRM Screen 2:49 PM CDT Type & Screen 10/10/2021 10/07/2021 STRM Expiration 23:59 2:49 PM CDT Testing [place] DEFAULT 10/07/2021 STR Location 2:14 PM CDT Specimen Anatomical Collection Method Collection Time Receive d Time (Source) Location / / Volume Laterality Blood (Blood, 10/07/2021 2:10 PM 10/08/19 2:14 Arterial Line) CDT PM CDT Resulting Agency Comment Drawn in OR by [id number] Magdaleno Geronimo M.D. LAB BLOOD BANK TEST ORDERABL ES Performing Organization Address City/State/ZIP Code Phon e Number [facility] - [address] [place], [place] [address] [facility] [place] [address] [facility] [address] (ABNORMAL) Apixaban, Anti-Xa, P (10/05/2021 12:32 PM CDT) P athologist Signature Apixaban, 25 (H) <10 ng/mL 10/05/2021 DTL Anti-Xa, P 2:11 PM CDT Comment: ----ADDITIONAL INFORMATION---- This test has been modified from the man ufacturer's instructions. Its performance characteri stics were determined by [facility] in a manner co nsistent with CLIA [...] PM CDT PM CDT Miguel Gagnon M.D., M.S. LAB BLOOD NON ADD-O N Performing Organization Address [facility] Phon e Number [facility] - [address] Prothrombin Time (PT) (10/05/2021 12:30 PM CDT) P athologist Signature Prothrombin 11.9 9.4 - 12.5 10/05/2021 DTL [...] M.D. LAB BLOOD ADD-ON Performing Organization Address [facility] Phon e Number [facility] - [address] (ABNORMAL) Basic Metabolic Panel (10/05/2021 6:49 AM CDT) P athologist Signature Potassium, S 4.0 3.6 - 5.2 10/05/2021 DTL mmol/L 8:14 AM CDT Sodium, S 143 135 - 145 10/05/2021 DTL mmol/L 8:14 AM CDT Chloride, S 106 98 - 107 10/05/2021 DTL mmol/L 8:14 AM CDT Bicarbonate, S 27 22 - 29 10/05/2021 DTL mmol/L 8:06 AM CDT Anion Gap 10 7 - 15 10/05/2021 DTL 8:14 AM CDT BUN (Blood Urea 19 8 - 24 10/05/2021 DTL Nitrogen), S mg/dL 8:06 AM CDT Creatinine 1.27 0.74 - 10/05/2021 DTL 1.35 mg/dL 8:06 AM CDT eGFR-Non 55 (L) >=60 10/05/2021 DTL Black/ mL/min/BSA 8:06 AM CDT [place] Comment: ----ADDITIONAL INFORMATION---- Estimated GFR calculated using the 2009 CKD_EPI creatinine equation. eGFR-Black/ 63 >=60 mL/min/BSA 2021 8:06 AM CDT DTL Comment: ----ADDITIONAL INFORMATION---- Estimated GFR calculated using the 2009 CKD_EPI creatinine equation. Calcium, Total, S 8.6 (L) 8.8 - 10.2 mg/dL 10/05/2021 8:06 AM CDT DTL Glucose, S 97 70 - 140 mg/dL 10/05/2021 8:06 AM CDT D TL Specimen Anatomical Collection Method Collection Time Receive d Time (Source) Location / / Volume Laterality Blood (Blood, 10/05/2021 6:49 AM 10/06/19 7:41 Venous) CDT AM CDT Lee Bowman M.D. LAB BLOOD ADD-ON Performing Organization Address City/State/ZIP Code Phon e Number [facility] - [address] [place], [place] [address] [facility] [place] [address] [facility] [address] [facility] (ABNORMAL) CBC with Differential, Blood (10/05/2021 6:49 AM CDT) [facility] gist Method Time Signature Hemoglobin 12.2 (L) 13.2 - 10/05/2021 DTL 16.6 g/dL 7:41 AM CDT Hematocrit 38.0 (L) 38.3 - 10/05/2021 DTL 48.6 % 7:41 AM CDT Erythrocytes 4.04 (L) 4.35 - 10/05/2021 DTL 5.65 7:41 AM CDT x10(12)/L MCV 94.1 78.2 - 10/05/2021 DTL 97.9 fL 7:41 AM CDT RBC Distrib Width 13.9 11.8 - 10/05/2021 DTL 14.5 % 7:41 AM CDT Platelet Count 237 135 - 317 10/05/2021 DTL x10(9)/L 7:41 AM CDT Leukocytes 6.7 3.4 - 9.6 10/05/2021 DTL x10(9)/L 7:41 AM CDT Neutrophils 4.34 1.56 - 10/05/2021 DTL 6.45 7:41 AM CDT x10(9)/L Lymphocytes 1.43 0.95 - 10/05/2021 DTL 3.07 7:41 AM CDT x10(9)/L Monocytes 0.70 0.26 - 10/05/2021 DTL 0.81 7:41 AM CDT x10(9)/L Eosinophils 0.20 0.03 - 10/05/2021 DTL 0.48 7:41 AM CDT x10(9)/L Basophils 0.04 0.01 - 10/05/2021 DTL 0.08 7:41 AM CDT x10(9)/L Specimen Anatomical Collection Method Collection Time Receive d Time (Source) Location / / Volume Laterality Blood (Blood, 10/05/2021 6:49 AM 10/06/19 7:27 Venous) CDT AM CDT Lee Bowman M.D. LAB BLOOD ADD-ON Performing Organization Address City/State/ZIP Code Phon e Number [facility] - [address] [place], [place] [address] [facility] [place] [address] [facility] [address] [facility] LD (Lactate Dehydrogenase) (10/05/2021 6:49 AM CDT) [facility] LD 157 122 - 222 10/05/2021 DT U/L 8:17 AM CDT Specimen Anatomical Collection Method Collection Time Receive d Time (Source) Location / / Volume Laterality Blood (Blood, 10/05/2021 6:49 AM 10/06/19 7:52 Venous) CDT AM CDT Lee Bowman M.D. LAB BLOOD NON ADD-ON Performing Organization Address City/State/ZIP Code Phon e Number [facility] - [address] [place] [address] [facility] [place] [place] [address] [facility] [address] [facility] MR Brain Perfusion without and with IV [...] mass concerning for metastatic disease versus primary [employer] ne oplasm. 2. Significant associated mass effect [...] frontal lobe mass with surrounding vasogenic edema ([id number]); significant perilesional edema involving much of the [...] frontal lobe mass with surrounding vasogenic edema ([id number]); significant perilesional edema involving much of the [...] mass concerning for metastatic disease versus primary [employer] ne oplasm. 2. Significant associated mass effect fr om 1 with diffuse left frontal vasogenic edema and sulcal effacement, rightward midline shift, and subfalcine herniation. Shawna Geronimo M.D., M.P.H. [facility] [place] Abdomen Pelvis with IV [...] infectious or inflammatory. Shawna Geronimo M.D., M.P.H. G CT PROCEDURES Leukemia/Lymphoma Immunophenotyping by Flow Cytometry, Blood (10/04/2021 7:54 AM CDT) Component Value Ref Test Analysis Performed Pathologis t Range Method Time At [facility] LCMSB Result Performed 10/04/2021 DTL 2:04 PM [...] received within validated farrukh delines. Microscopic A [id number]-lalrcqo slid e prepared from the flow cytometry specimen is 10/04/2021 DTL Description examined. ??No morphologic f eatures of acute leukemia or lymphoma are 2:04 PM identified. CDT Comment: ----ADDITIONAL INFORMATION---- This test was developed using an analyte specific reagent. Its performance characteristics were determined by [facility] in a manner consistent with CLIA requirements. This test has not bee n cleared or approved by the U.S. Food and Drug Administration. Specimen Anatomical Collection Method Collection Time Receive d Time (Source) Location / / Volume Laterality Blood (Blood, 10/04/2021 7:54 AM 10/05/19 22 8:25 Venous) CDT AM CDT Narrative This result has an attachment that is no t available. Shawna Geronimo M.D., M.P.H. LAB GENETIC TESTING Performing Organization Address City/State/ZIP Code Phon e Number [facility] - [address] [place], [place] [address] [facility] [place] [address] [facility] [address] [facility] (ABNORMAL) CBC with Differential, Blood (10/04/2021 7:54 AM CDT) [employer] Method Time Signature Hemoglobin 12.7 (L) 13.2 - 10/04/2021 DTL 16.6 g/dL 8:36 AM CDT Hematocrit 39.5 38.3 - 10/04/2021 DTL 48.6 % 8:36 AM CDT Erythrocytes 4.23 (L) 4.35 - 10/04/2021 DTL 5.65 8:36 AM CDT x10(12)/L MCV 93.4 78.2 - 10/04/2021 DTL 97.9 fL 8:36 AM CDT RBC Distrib Width 13.9 11.8 - 10/04/2021 DTL 14.5 % 8:36 AM CDT Platelet Count 257 135 - 317 10/04/2021 DTL x10(9)/L 8:36 AM CDT Leukocytes 6.9 3.4 - 9.6 10/04/2021 DTL x10(9)/L 8:36 AM CDT Neutrophils 4.13 1.56 - 10/04/2021 DTL 6.45 8:36 AM CDT x10(9)/L Lymphocytes 1.78 0.95 - 10/04/2021 DTL 3.07 8:36 AM CDT x10(9)/L Monocytes 0.74 0.26 - 10/04/2021 DTL 0.81 8:36 AM CDT x10(9)/L Eosinophils 0.18 0.03 - 10/04/2021 DTL 0.48 8:36 AM CDT x10(9)/L Basophils 0.06 0.01 - 10/04/2021 DTL 0.08 8:36 AM CDT x10(9)/L Specimen Anatomical Collection Method Collection Time Receive d Time (Source) Location / / Volume Laterality Blood (Blood, 10/04/2021 7:54 AM 10/05/19 8:18 Venous) CDT AM CDT Shawna Geronimo M.D., M.P.H. LAB BLOOD ADD-ON Performing Organization Address City/State/ZIP Code Phon e Number [facility] - [address], [place] [address] [facility] [place] [address] [facility] [address] [facility] (ABNORMAL) Basic Metabolic Panel (10/04/2021 7:54 AM CDT) Analysis Performed At Patho logist Time Signature Potassium, S 4.4 3.6 - 5.2 10/04/2021 DTL mmol/L 8:54 AM CDT Sodium, S 141 135 - 145 10/04/2021 DTL mmol/L 8:54 AM CDT Chloride, S 104 98 - 107 10/04/2021 DTL mmol/L 8:54 AM CDT Bicarbonate, S 26 22 - 29 10/04/2021 DTL mmol/L 8:54 AM CDT Anion Gap 11 7 - 15 10/04/2021 DTL 8:54 AM CDT BUN (Blood Urea 19 8 - 24 10/04/2021 DTL Nitrogen), S mg/dL 8:54 AM CDT Creatinine 1.39 (H) 0.74 - 10/04/2021 DTL 1.35 mg/dL 8:54 AM CDT eGFR-Non 49 (L) >=60 10/04/2021 DTL Black/ mL/min/BSA 8:54 AM CDT [place] Comment: ----ADDITIONAL INFORMATION---- Estimated GFR calculated using the 2009 CKD_EPI creatinine equation. eGFR-Black/ 57 (L) >=60 mL/min/BSA 2021 8:54 AM CDT DTL Comment: ----ADDITIONAL INFORMATION---- Estimated GFR calculated using the 2009 CKD_EPI creatinine equation. Calcium, Total, S 9.2 8.8 - 10.2 mg/dL 10/04/2021 8:54 AM CDT DTL Glucose, S 92 70 - 140 mg/dL 10/04/2021 8:54 AM CDT D TL Specimen Anatomical Collection Method Collection Time Receive d Time (Source) Location / / Volume Laterality Blood (Blood, 10/04/2021 7:54 AM 10/05/19 8:34 Venous) CDT AM CDT Shawna Geronimo M.D., M.P.H. LAB BLOOD ADD-ON Performing Organization Address City/[facility]/ZIP Code Phon e Number [facility] - [address] [place], [place] [address] [facility] [place] [address] [facility] [address] SARS Coronavirus 2, RNA, Rapid POC, V Asymptomatic (10/04/2021 1:44 AM CDT) [facility] gist Method Time Signature SARS Undetected Undetected 10/04/2021 DTLR Coronavirus-2 2:08 AM CDT , RNA, Rapid POC, V Comment: Negative for SARS-CoV-2. The Citizen.VC COVID-19 test is a molecular radha t for SARS-CoV-2, the virus that causes COVID- 19. A Negative result means that the Citizen.VC COV ID-19 test did not detect SARS-CoV-2 virus in your sample. Citizen.VC COVID-19 test uses the [employer] System. This test has received Emergency Use Authorization (EUA) by the U.S. Food and Drug Administration (FDA) and is used per [facility] instructions. Performance characteristic s were verified by [facility] in a manner consistent with CLIA requirements. Fact sheets for this Emerg ency Use Authorization (EUA) can be found at the following links: Providers: [email or web address] Patients: [email or web address] SARS Coronavirus 2, Source Nasopharynx DEFAULT 10/04/2021 2:08 AM CDT DTLR Specimen Anatomical Collection Method Collection Time Receive d Time (Source) Location / / Volume Laterality Varies 10/04/2021 1:44 AM 1:44 (Nasopharynx) CDT AM CDT Shawna Geronimo M.D., M.P.H. LAB MICROBIOLOGY - GENERA L ORDERABLES Performing Organization Address City/[facility] Phon e Number PERFORMING LABS, REF [place] [address] INTERFACE Ref Interface [address] [facility] DTLR Performing Labs, [place] [address] Interface [address] [facility] ECG 12 Lead (10/03/2021 8:17 PM CDT) P athologist Signature Ventricular Rate 80 BPM MUSE ECG/Min TN Interval 138 ms MUSE QRSD Interval 86 ms MUSE QT Interval 390 ms MUSE QTC Interval 449 ms MUSE P [place] 57 degrees MUSE R [place] 30 degrees MUSE T Wave [place] 56 degrees MUSE Specimen Anatomical Collection Method Collection Time Receive d Time (Source) Location / / Volume Laterality 10/03/2021 8:17 PM 8:31 CDT PM CDT Impressions MUSE - [...] Code Phon e Number MUSE MUSE NA documented in this encounter Visit Diagnoses Diagnosis 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 (ICD-1 0-CM)] documented in this encounter Admitting Diagnoses Diagnosis Mass Brain documented in this encounter Administered Medications Inactive Administered Medications - up to 3 most recent administrations Medication Order MAR Action Action Date Dose Rate Site acetaminophen tablet 1,000 mg Given 10/07/2021 8:31 AM CDT 1,000 mg (TYLENOL) 1,000 mg, oral, 4 times daily, First dose on Sun10/04/21 at 0800, Not to exceed 4 grams of acetaminophen in 24 hours all sources Given 10/06/2021 9:05 PM CDT 1,000 mg Given 10/05/2021 1:25 PM CDT 1,000 mg acetaminophen tablet 1,000 mg (TYLENOL) Given 10/09/2021 12:52 PM CDT 1,000 mg 1,000 mg, oral, Every 6 hours, First dose on Sun10/07/21 at 1915, For 3 days, If patient tolerating oral fluids or has a gastric tube, discontinue injectable opioid and begin this order Given 10/08/2021 12:21 AM CDT 1,000 mg Given 10/07/2021 8:10 PM CDT 1,000 mg atorvastatin tablet 10 mg (LIPITOR) Given 10/08/2021 10:01 PM CDT 10 mg 10 mg, oral, Daily at bedtime, First dose on Sun10/04/21 at 2100 Given 10/07/2021 8:10 PM CDT 10 mg Given 10/06/2021 9:05 PM CDT 10 mg benzocaine-menthoL 15-3.6 mg per lozenge 1 lozenge (CEPACOL) 1 lozenge, oral, As needed, sore throat, throat irritation, Starting on Sun10/07/21 at 1902 bisacodyL suppository 10 mg (DULCOLAX) 10 mg, rectal, Daily PRN, constipation, Starting on Sun10/04/21 at 0135, Ordered sequence of administration: polyethylene glycol, then bisacodyl until BM achieved. calcium carbonate chewable tablet 400 mg of calcium (TUMS) 400 mg of calcium, oral, Every 2 hour TN N, heartburn, indigestion, Starting on Sun10/04/21 at 0135, Doses listed are in mg of elemental calcium. Take with food. 500 mg calcium carbonate contains 200 mg of elemental calc ium. ceFAZolin in dextrose (iso-os) IVPB 2 New Bag 10/08/2021 5:14 PM CDT 2 g 200 mL/hr g (ANCEF) 2 g, intravenous, at 200 mL/hr, Administer over 30 Minutes, Every 8 hours, First dose on Sun10/08/21 at 0115, For 3 doses, Start within 8 hours of last IV dose., Drug Monitoring Program: Pharmacist to adjust medication dosing based on indication and drug clearance factors., Indications: Prophylaxis, surgical New Bag 10/08/2021 10:11 AM CDT 2 g 200 mL/hr New Bag 10/08/2021 12:21 AM CDT 2 g 200 mL/hr cholecalciferol (vitamin D3) tablet 25 m cg Given 10/09/2021 9:12 AM CDT 25 mcg 25 mcg, oral, Daily, First dose on Sun10/04/21 at 0900, cholecalciferol (vitamin D3) orderable was interchanged for cholecalciferol (vitamin D3) tablet/capsule Given 10/08/2021 8:01 AM CDT 25 mcg Given 10/07/2021 9:41 AM CDT 25 mcg D5W infusion 10-250 mL/hr, intravenous, As needed, Medications Inco mpatible with 0.9% NaCL, Starting on Sun10/09/21 at 1300, Infuse at the same ra te as the piggyback until tubing clears or up to a volume of 20 mL pre and post infusion for medications incompatible with 0.9% NaCL. Use 100 mL bag then disca rd. D5W infusion 10-250 mL/hr, intravenous, As needed, Medications Inco mpatible with 0.9% NaCL, Starting on Sun10/09/21 at 1306, Infuse at the same ra te as the piggyback until tubing clears or up to a volume of 20 mL pre and post infusion for medications incompatible with 0.9% NaCL. Use 100 mL bag then disca rd. dexAMETHasone injection 10 mg (DECADRON) Given 10/05/2021 1:24 PM CDT 10 mg 10 mg, intravenous, Once, On Sun10/05/21 at 1115, For 1 dose dexAMETHasone injection 4 mg (DECADRON) Given 10/08/2021 11:41 AM CDT 4 mg 4 mg, intravenous, 4 times daily, First dose on Sun10/07/21 at 2100, For 3 doses, Convert to PO when tolerated. Given 10/08/2021 7:52 AM CDT 4 mg Given 10/07/2021 8:11 PM CDT 4 mg dexAMETHasone tablet 1 mg (DECADRON) 1 mg, oral, 4 times daily, First dose on Sun10/13/21 at 2100, For 8 doses, Contact pharmacist if IV needed. dexAMETHasone tablet 2 mg (DECADRON) 2 mg, oral, 4 times daily, First dose on Sun10/11/21 at 2100, For 8 doses, Contact pharmacist if IV needed. dexAMETHasone tablet 3 mg (DECADRON) 3 mg, oral, 4 times daily, First dose on Sun10/09/21 at 2100, For 8 doses, Contact pharmacist if IV needed. dexAMETHasone tablet 4 mg (DECADRON) Given 10/07/2021 9:41 AM CDT 4 mg 4 mg, oral, 2 times daily, First dose on Sun10/05/21 at 2100 Given 10/06/2021 9:05 PM CDT 4 mg Given 10/06/2021 8:05 AM CDT 4 mg dexAMETHasone tablet 4 mg (DECADRON) Given 10/09/2021 12:52 PM CDT 4 mg 4 mg, oral, 4 times daily, First dose on Sun10/08/21 at 1700, For 5 doses, Contact pharmacist if IV needed. Given 10/09/2021 9:12 AM CDT 4 mg Given 10/08/2021 10:02 PM CDT 4 mg dilTIAZem 24 hr capsule 180 mg (TIAZAC/TAZTIA Given 9:14 AM CDT 180 mg XT) 180 mg, oral, Daily, First dose on Sun10/04/21 at 0900, Do NOT crush or chew. Capsule may be opened and the contents taken without crushing or chewing. Given 10/08/2021 8:01 AM CDT 180 mg Given 10/07/2021 9:41 AM CDT 180 mg famotidine tablet 20 mg (PEPCID) Given 10/09/2021 9:12 AM CDT 20 mg 20 mg, oral, 2 times daily, First dose on Sun10/04/21 at 0900, Drug Monitoring Program: Pharmacist to adjust medication dosing based on indication and drug clearance factors. Given 10/08/2021 10:03 PM CDT 20 mg Given 10/08/2021 8:01 AM CDT 20 mg fentaNYL injection 25 mcg (SUBLIMAZE) 25 mcg, intravenous, Every 2 hour PRN, s evere pain or score 7-10 of 10, Starting on Sun10/07/21 at 1902, For 2 doses, For br eakthrough pain unrelieved 30 minutes after PRN pain medication is used. May adminis ter IV pain medication concurrently with PRN oral medication if pain is greater than or equal t o 7 in order to provide immediate relief. folic acid tablet 1 mg Given 10/07/2021 9:41 AM CDT 1 mg 1 mg, oral, Daily, First dose on Sun10/04/21 at 0900 Given 10/06/2021 8:06 AM CDT 1 mg Given 10/05/2021 8:33 AM CDT 1 mg gadobutrol injection 0.01-30 mL (GADAVIS T) Given 10/04/2021 12:26 PM CDT 9 mL 0.01-30 mL, intravenous, Once in imaging, contrast, Starting on Sun10/04/21 at 1226, For 1 dose, Imaging Protocol Orders, Dose per Radiant Medication Guidelines Intrathecal doses greater than 0.25 mL not recommended. gadobutrol injection 0.01-30 mL (GADAVIS T) Given 10/08/2021 9:44 AM CDT 9 mL 0.01-30 mL, intravenous, Once in imaging, contrast, Starting on Sun10/08/21 at 0944, For 1 dose, Imaging Protocol Orders, Dose per Radiant Medication Guidelines Intrathecal doses greater than 0.25 mL not recommended. heparin flush 500 Units Given 10/09/2021 1:18 PM CDT 500 Units 500 Units, intra-catheter, During hospitalization, line care, Prior to discharge, Starting on Sun10/09/21 at 1306, For 1 dose, Implanted Vascular Access Device (IVAD) Venous Non-Valved: Following saline flush prior to discharge. hydrALAZINE tablet 25 mg (APRESOLINE) 25 mg, oral, Every 6 hours PRN, Second-l ine (after labetalol): SBP >160 mmHg; hold for HR >100 BPM., Starting on Sun10/07/21 at 1902 iohexoL 350 mg iodine/mL solution 1-200 mL Given 10/04/2021 8:40 AM CDT 100 mL (OMNIPAQUE) 1-200 mL, intravenous, Once in imaging, contrast, Starting on Sun10/04/21 at 0839, For 1 dose lactated ringers Rate/Dose Verify 10/08/2021 6:00 AM CDT 80 mL/hr 80 mL/hr 80 mL/hr, intravenous, Continuous, Starting on Sun10/07/21 at 1915, For 12 hours Rate/Dose Verify 10/08/2021 4:00 AM CDT 80 mL/hr 80 mL/hr Rate/Dose Verify 10/08/2021 2:00 AM CDT 80 mL/hr 80 mL/hr levETIRAcetam tablet 500 mg (KEPPRA) Given 10/09/2021 9:12 AM CDT 500 mg 500 mg, oral, 2 times daily, First dose on Sun10/08/21 at 0900, For 14 doses Given 10/08/2021 10:02 PM CDT 500 mg Given 10/08/2021 8:01 AM CDT 500 mg magnesium hydroxide suspension 30 mL (NM LK OF MAGNESIA) 30 mL, oral, Daily PRN, constipation, St arting on Sun10/07/21 at 1902, Give if no bowel movement by post-operative day 3. magnesium oxide tablet 400 mg (MAG-OX) Given 10/09/2021 9:12 AM CDT 400 mg 400 mg, oral, Daily, First dose on Sun10/04/21 at 0900 Given 10/08/2021 8:01 AM CDT 400 mg Given 10/07/2021 9:41 AM CDT 400 mg xfwzafjsxjnw-jtjj-XL-Ca-minerals 400 mcg Given 10/09/2021 9:12 A M CDT 1 tablet (folic acid) tablet 1 tablet (THERAPEUTI C-M) 1 tablet, oral, Daily, First dose on Sun10/04/21 at 0900 Given 10/08/2021 8:00 AM CDT 1 tablet Given 10/07/2021 9:41 AM CDT 1 tablet NaCl 0.9 % bolus 500 mL New Bag 10/08/2021 7:53 AM CDT 500 mL 500 mL/hr 500 mL, intravenous, at 500 mL/hr, Administer over 1 Hours, Once, On Sun10/08/21 at 0730, For 1 dose NaCl 0.9% infusion 10-250 mL/hr, intravenous, As needed, Be tween Consecutive Piggyback Medications, Starting on Sun10/09/21 at 1300, Infuse at the same ra te as the piggyback until tubing clears or up to a volume of 20 mL . Select for IV medication administration when no maintenance IV available or when IV medication s are not compatible with maintenance fluid. NaCl 0.9% infusion 10-250 mL/hr, intravenous, As needed, Post Medications (Hazardous/Low Fluid Volume), Starting on Sun10/09/21 at 1300 , Infuse at the same rate as the medication until tubing cleared of medication, then discard. NaCl 0.9% infusion 10-250 mL/hr, intravenous, As needed, Be tween Consecutive Piggyback Medications, Starting on Sun10/09/21 at 1306, Infuse at the same ra te as the piggyback until tubing clears or up to a volume of 20 mL . Select for IV medication administration when no maintenance IV available or when IV medication s are not compatible with maintenance fluid. NaCl 0.9% infusion 10-250 mL/hr, intravenous, As needed, Post Medications (Hazardous/Low Fluid Volume), Starting on Sun10/09/21 at 1306 , Infuse at the same rate as the medication until tubing cleared of medication, then discard. naloxone injection 0.2 mg (NARCAN) 0.2 mg, intravenous, As needed, respirat ory depression, Starting on Sun10/07/21 at 1902, For RASS Score -4 or less, respiratory rate of l ess than 8 breaths/min. Notify provider/service and rapid response team (if av ailable at institution). ondansetron (PF) injection 4 mg (ZOFRAN) 4 mg, intravenous, Every 6 hours PRN, na usea, vomiting, Starting on Sun10/07/21 at 1902, For 48 hours, Reassess for nausea or vomiting after at least 10 minutes. If nausea or vomiting persists administer n ext ordered antiemetic medications (order for antiemetic medication administration ondansetron t hen haloperidol then prochlorperazine). oxyCODONE IR tablet 10 mg (ROXICODONE) 10 mg, oral, Every 4 hours PRN, severe pain or score 7 -10 of 10, or for pain greater than comfort goal, Starting on Sun10/07/21 at 1902 oxyCODONE IR tablet 5 mg (ROXICODONE) 5 mg, oral, Every 4 hours PRN, severe pain or score 7- 10 of 10, Starting on Sun10/07/21 at 1902 polyethylene glycol powder packet 17 g Given 10/08/2021 8:01 AM CDT 17 g (MIRALAX) 17 g, oral, Daily, First dose (after last modification) on 10/08/21 at 0900, Avoid mixing with starch-based thickened liquids. sennosides-docusate sodium 8.6-50 mg per Given 10/08/2021 10 :02 PM CDT 1 tablet tablet 1 tablet (SENOKOT-S) 1 tablet, oral, 2 times daily, First dose on Sun10/04/21 at 0900, Do not give if patient has diarrhea. Given 10/08/2021 8:01 AM CDT 1 tablet Given 10/07/2021 8:11 PM CDT 1 tablet sodium chloride (PF) 0.9 % injection 1-1 00 mL Given 10/04/2021 8:40 AM CDT 50 mL 1-100 mL, intravenous, Once, On Sun10/04/21 at 0845, For 1 dose, Imaging Protocol Orders sodium chloride (PF) 0.9 % injection 1-1 00 mL Given 10/04/2021 12:26 PM CDT 20 mL 1-100 mL, intravenous, Once, On Sun10/04/21 at 1230, For 1 dose, Imaging Protocol Orders sodium chloride 0.9 % injection 10 mL Given 10/04/2021 8:47 AM CDT 10 mL 10 mL, intravenous, As needed, line care, Starting on Sun10/04/21 at 0134, Peripheral Intravenous Catheter and Rapid Infusion Catheter, prior to blood sampling, post blood transfusion or post blood sampling Given 10/04/2021 8:39 AM CDT 10 mL sodium chloride 0.9 % injection 10 mL 10 mL, intravenous, During hospitalizati on, line care, Prior to discharge, Starting on Sun10/09/21 at 1306, For 1 dose, Impl anted Vascular Access Device (IVAD) Venous Non-Valved: Followed by heparin flush prior to dischar ge. sodium chloride 0.9 % injection 3 mL 3 mL, intravenous, As needed, line care, Starting on Sun10/04/21 at 0134, Prior to and following infusion and between multi ple consecutive infusions: sodium chloride 0.9 % injection sodium chloride 0.9 % injection 3 mL Given 10/09/2021 9:21 AM CDT 3 mL 3 mL, intravenous, Every 12 hours scheduled, First dose on Sun10/04/21 at 0900, Peripheral Intravenous Catheter and Rapid Infusion Catheter, when no infusion to maintain patency Given 10/08/2021 10:03 PM CDT 3 mL Given 10/08/2021 8:02 AM CDT 3 mL documented in this encounter Active and Recently Administered Medications Times are shown in CDT. Scheduled Medication Order 10/07/2021 10/08/2021 10/09/2021 acetaminophen tablet 1,000 mg (TYLENOL) (CANCELED) 083 1 (Given - Provider: Cheko Ham RHudson)1207 (Not Given - Provider: Cheko Ham R.N. - Reason: Patient/family refused)1224 (MAY Hold - Provider: Transfer Provider, Automatic - Reason: Patient not available) 1,000 mg, oral, 4 times daily, First dos e on Sun10/04/21 at 0800, Not to exceed 4 grams of acetaminophen in 24 hours all sources 1700 (Dose Auto Held - Provider: Transfer Provider, Automatic)1833 (MAR Unhold - Provider: Transfer Provider, Automatic) acetaminophen tablet 1,000 mg (TYLENOL) 2009 (Given - Provider: Eduard Shelley RLucindaN.) 0021 (Given - Provider: Eduard Shelley RLucindaN.)0620 (Not Given - Provider: Eduard Shelley RFrankie. - Reason: Patient/family refused)1350 (Not Given - Provider: Rolando Amanda RLucindaNLucinda - Reason: Patient/family refused) 0015 (Not Given - Provider: Marychuy Alarcon, R.N. - Reason: Patient/family refused)0632 (Not Given - Provider: Marychuy Alarcon, R.N. - Reason: Patient/family refused)1252 (Given - Provider: Cynthia Du RLucindaNLucinda) 1,000 mg, oral, Every 6 hours, First dos e on Sun10/07/21 at 1915, For 3 days, If patient tolerating oral fluids or has a gastric tube, discontinue injectable opioid and begin this order 1915 (Not Given - Provider : Eduard Shelley RLucindaN. - Reason: Patient/family refused) atorvastatin tablet 10 mg (LIPITOR) 1224 (MAY Hold - P rovider: Transfer Provider, Automatic - Reason: Patient not available)1833 (MAR Unhold - Provider: Transfer Provider, Automatic)2009 (Given - Provider: Eduard Shelley R.N.) 2201 (Given - Provider: Marychuy Alarcon R.N.) 10 mg, oral, Daily at bedtime, First dose on Sun10/04/21 at 2100 ceFAZolin in dextrose (iso-os) IVPB 2 g (ANCEF) (COMPLETED) 0021 (New Bag - Provider: Eduard Shelley RLucindaNLucinda)1011 (New Bag - Provider: Ida TeeN.)1714 (New Bag - Provider: Rolando Amanda R.N.) 2 g, intravenous, at 200 mL/hr, Administ er over 30 Minutes, Every 8 hours, First dose on Sun10/08/21 at 0115, For 3 doses, Start within 8 hours of last IV dose., Drug Monitoring Program: Pharmacist to a djust medication dosing based on indicat ion and drug clearance factors., Indications: Prophylaxis, surgical ceFAZolin injection 2,000 mg (ANCEF) (COMPLETED) 1430 (Given - Provider: Marybel Gillespie APRN, MONOGRAM TECHNICIAN)1729 (Given - Provider: Jazmín Burns APRN, KAMLESH) 2,000 mg (rounded from 2,077.5 mg = 25 m g/kg ? 83.1 kg Dosing weight), intravenous, Once, On Sun10/07/21 at 1230, For 1 dose, Intra-Op, Administer within 1 hour prior to surgical incision If needed, re constitute vial per package insert instr uctions. See IVAG for administration guidelines. , Drug Monitoring Program: Pharmacist to adjust medication dosing based on indication and drug clearance factors., Indications: Prophylaxis, surgical cholecalciferol (vitamin D3) tablet 25 mcg 0941 (Given - Provider: Cheko Ham RLucindaNLucinda)1224 (MAY Hold - Provider: Transfer Provider, Automatic - Reason: Patient not available)1833 (MAY Unhold - Provider: Transfer Provider, Automatic) 0801 (Given - Provider: Rolando Amanda RLucindaNLucinda) 0912 (Given - Provider: Cynthia Du RLucindaNLucinda) 25 mcg, oral, Daily, First dose on Sun at 0900, cholecalciferol (vitamin D3) orderable was interchanged for cholecalciferol (vitamin D3) tablet/capsule dexAMETHasone injection 4 mg (DECADRON) (COMPLETED)(Evie nked Group 1) 2010 (Given - Provider: Eduard Shelley RLucindaNLucinda) 0752 (Given - Provider: Rolando degroot R.N.)1141 (Given - Provider: Rolando Amanda RLucindaNLucinda) 4 mg, intravenous, 4 times daily, First dose on Sun10/07/21 at 2100, For 3 doses, Convert to PO when tolerated. dexAMETHasone tablet 1 mg (DECADRON)(Linked Group 1) 1 mg, oral, 4 times daily, First dose on Sun10/13/21 at 2100, For 8 doses, Contact pharmacist if IV needed. dexAMETHasone tablet 2 mg (DECADRON)(Linked Group 1) 2 mg, oral, 4 times daily, First dose on Sun10/11/21 at 2100, For 8 doses, Contact pharmacist if IV needed. dexAMETHasone tablet 3 mg (DECADRON)(Linked Group 1) 3 mg, oral, 4 times daily, First dose on Sun10/09/21 at 2100, For 8 doses, Contact pharmacist if IV needed. dexAMETHasone tablet 4 mg (DECADRON) (CANCELED) 0941 ( Given - Provider: Cheko Ham RLucindaN.)1224 (MAY Hold - Provider: Transfer Provider, Automatic - Reason: Patient not available)1833 (MAY Unhold - Provider: Transfer Provider, Automatic) 4 mg, oral, 2 times daily, First dose on Sun10/05/21 at 2100 dexAMETHasone tablet 4 mg (DECADRON)(Linked Group 1) 1714 (Given - Provider: Rolando Amanda RLucindaNLucinda)2202 (Given - Provider: Marychuy Alarcon R.N.) 0912 (Given - Provider: Cynthia Du RLucindaNLucinda)1252 (Given - Provider: Cynthia Du RLucindaNLucinda) 4 mg, oral, 4 times daily, First dose on Sun10/08/21 at 1700, For 5 doses, Contact pharmacist if IV needed. dilTIAZem 24 hr capsule 180 mg (TIAZAC/TAZTIA XT) 0941 (Given - Provider: Cheko Ham RLucindaNLucinda)1224 (MAR Hold - Provider: Transfer Provider, Automatic - Reason: Patient not available)1833 (MAR Unhold - Provider: Transfer Provider, Automatic) 0801 (Given - Provider: Rolando Amanda RLucindaN.) 0914 (Given - Provider: Cynthia Du RLucindaNLucinda) 180 mg, oral, Daily, First dose on Sun at 0900, Do NOT crush or chew. Capsule may be opened and the contents taken without crushing or chewing. famotidine tablet 20 mg (PEPCID) 0942 (Given - Provide r: Cheko Ham RHudson)1224 ([facility] Hold - Provider: Transfer Provider, Automatic - Reason: Patient not available)1833 ([facility] Unhold - Provider: Transfer Provider, Automatic)2009 (Given - Provider: Eduard Shelley RLucindaNLucinda) 0801 (Given - Provider: Rolando Amanda R.N.)2203 (Given - Provider: Marychuy Alarcon RLucindaN.) 0912 (Given - Provider: Cynthia Du RLucindaNLucinda) 20 mg, oral, 2 times daily, First dose o n Sun10/04/21 at 0900, Drug Monitoring Program: Pharmacist to adjust medication dosing based on indication and drug clearance factors. folic acid tablet 1 mg (CANCELED) 0941 (Given - Provid er: Cheko Ham RLucindaNLucinda)1224 ([facility] Hold - Provider: Transfer Provider, Automatic - Reason: Patient not available)1833 ([facility] Unhold - Provider: Transfer Provider, Automatic) 1 mg, oral, Daily, First dose on Sun10/04/21 at 0900 levETIRAcetam in NaCl (iso-os) IVPB 1,000 mg (KEPPRA) (COMPLETED) 1419 (Given - Provider: Marybel Gillespie APRN, MONOGRAM TECHNICIAN)1759 (Anesthesia Volume Adjustment - Provider: Jazmín Burns APRN, KAMLESH) 1,000 mg, intravenous, at 400 mL/hr, Adm inister over 15 Minutes, Once, On Sun10/07/21 at 1230, For 1 dose, Intra-Op levETIRAcetam tablet 500 mg (KEPPRA) 080 1 (Given - Provider: Rolando Amanda R.N.)2202 (Given - Provider: Marychuy Alarcon RLucindaN.) 0912 (Given - Provider: Ida AlbertsNLucinda) 500 mg, oral, 2 times daily, First dose on Sun10/08/21 at 0900, For 14 doses magnesium oxide tablet 400 mg (MAG-OX) 0941 (Given - P rovider: Cheko Ham RLucindaNLucinda)1224 (MAY Hold - Provider: Transfer Provider, Automatic - Reason: Patient not available)1833 (MAY Unhold - Provider: Transfer Provider, Automatic) 0801 (Given - Provider: Ida TeeN.) 0912 (Given - Provider: Ida AlbertsNLucinda) 400 mg, oral, Daily, First dose on Sun10/04/21 at 0900 jfdhlosyehpv-tfus-UL-Ca-minerals 400 mcg (folic acid) tablet 1 tablet (THERAPEUTIC-M) 0941 (Given - Provider: Cheko nicholas RLucindaNLucinda)1224 (MAY Hold - Provider: Transfer Provider, Automatic - Reason: Patient not available)1833 ([facility] Unhold - Provider: Transfer Provider, Automatic) 0800 (Given - Provider: Rolando Amanda R.N.) 0912 (Given - Provider: Ida AlbertsNLuicnda) 1 tablet, oral, Daily, First dose on Sun10/04/21 at 0900 NaCl 0.9 % bolus 500 mL (COMPLETED) 0753 (New Bag - Provider: Rolando Amanda R.N.) 500 mL, intravenous, at 500 mL/hr, Admin ister over 1 Hours, Once, On Sun10/08/21 at 0730, For 1 dose polyethylene glycol powder packet 17 g (MIRALAX) 0801 (Given - Provider: Rolando Amanda R.N.) 0911 (Not Given - Provider: Cynthia krishna RLucindaNLucinda - Reason: Patient/family refused) 17 g, oral, Daily, First dose (after las t modification) on Sun10/08/21 at 0900, Avoid mixing with starch-based thickened liquids. sennosides-docusate sodium 8.6-50 mg per tablet 1 tabl et (SENOKOT-S) 0941 (Given - Provider: Cheko Ham RLucindaNLucinda)1224 (MAY Hold - Provider: Transfer Provider, Automatic - Reason: Patient not available)183 (MAY Unhold - Provider: Transfer Provider, Automatic)2010 (Given - Provider: Eduard Shelley R.N.) 0801 (Given - Provider: Rolando Amanda R.N.)220 (Given - Provider: Marychuy Alarcon R.N.) 0912 (Not Given - Provider: Cynthia krishna R.N. - Reason: Patient/family refused) 1 tablet, oral, 2 times daily, First dos e on Sun10/04/21 at 0900, Do not give if patient has diarrhea. sodium chloride 0.9 % injection 3 mL 0942 (Given - Pro vider: Cheko Ham RLucindaNLucinda)1224 (MAY Hold - Provider: Transfer Provider, Automatic - Reason: Patient not available)183 (MAY Unhold - Provider: Transfer Provider, Automatic)2014 (Given - Provider: Eduard Shelley RLucindaNLucinda) 08 (Given - Provider: Rolando Amanda RLucindaN.)2202 (Given - Provider: Marychuy Alarcon R.N.) 0921 (Given - Provider: Cynthia Du R.N.) 3 mL, intravenous, Every 12 hours schedu led, First dose on Sun10/04/21 at 0900, Peripheral Intravenous Catheter and Rapid Infusion Catheter, when no infusion to maintain patency Continuous Medication Order 10/07/2021 10/08/2021 10/09/2021 lactated ringers () 2030 (New Bag - Provider: Dimitri Shelley RHudson)2200 (Rate/Dose Verify - Provider: Eduard Shelley R.N.)2300 (Rate/Dose Verify - Provider: Eduard Shelley R.N.) 0000 (Rate/Dose Verify - Provider: Archie Shelley R.N.)0200 (Rate/Dose Verify - Provider: Eduard Shelley RFrankie.)0400 (Rate/Dose Verify - Provider: Eduard Shelley RLucindaNLucinda)0600 (Rate/Dose Verify - Provider: Eduard Shelley RLucindaNLucinda) 80 mL/hr, intravenous, Continuous, Start ing on Sun10/07/21 at 1915, For 12 hours 0745 (Stopped - Provider: dIa SheppardNLucinda) phenylephrine 80 mcg/mL in NaCl 0.9% 250 mL infusion ( CANCELED) 1322 (New Bag - Provider: Marybel Gillespie APRN, MONOGRAM TECHNICIAN)1328 (Rate/Dose Change - Provider: Marybel Gillespie APRN, MONOGRAM TECHNICIAN)1350 (Rate/Dose Change - Provider: Madelyn Cantu APRN, MONOGRAM TECHNICIAN)1413 (Rate/Dose Change - Provider: Marybel Gillespie APRN, MONOGRAM TECHNICIAN) 0-1 mcg/kg/min ? 83.1 kg Dosing weight (0-62.325 mL/hr, rounded to 0-62.33 mL/hr), intravenous, Continuous, Starting on Sun10/07/21 at 1245, Intra-Op, 20 mg in 250 mL, Patient Type: Standard, initiate 1419 (Rate/Dose Change - Provider: Marybel Gillespie APRN, MONOGRAM TECHNICIAN)1445 (Rate/Dose Change - Provider: Marybel Gillespie APRN, MONOGRAM TECHNICIAN)1502 (Rate/Dose Change - Provider: Marybel Gillespie APRN, MONOGRAM TECHNICIAN)1506 (Rate/Dose Change - Provider: Marybel Gillespie APRN, MONOGRAM TECHNICIAN) at: Other, Rate: Per Provider, Titrate a t: Other, Titrate: Per Provider, Goal: Other, Goal: Per Provider 1510 (Rate/Dose Change - Provider: Marybel Gillespie APRN, MONOGRAM TECHNICIAN)1515 (Rate/Dose Change - Provider: Marybel Gillespie APRN, MONOGRAM TECHNICIAN)1524 (Rate/Dose Change - Provider: Marybel Gillespie APRN, MONOGRAM TECHNICIAN)1557 (Rate/Dose Change - Provider: Marybel Gillespie APRN, MONOGRAM TECHNICIAN) 1701 (Rate/Dose Change - Pro vider: Marybel Gillespie APRN, MONOGRAM TECHNICIAN)1718 (Rate/Dose Change - Provider: Jazmín Burns APRN, MONOGRAM TECHNICIAN)1719 (Rate/Dose Change - Provider: Jazmín Burns APRN, CRNA)1722 (Stopped - Provider: Jazmín Burns APRN, CRNA) PRN Medication Order 10/07/2021 10/08/2021 10/09/2021 benzocaine-menthoL 15-3.6 mg per lozenge 1 lozenge (CEPACOL) 1 lozenge, oral, As needed, sore throat, throat irritation, Starting on Sun10/07/21 at 1902 bisacodyL suppository 10 mg (DULCOLAX) 1224 (MAY Hold - Provider: Transfer Provider, Automatic - Reason: Patient not available)1833 ([facility] Unhold - Provider: Transfer Provider, Automatic) 10 mg, rectal, Daily PRN, constipation, Starting on Sun10/04/21 at 0135, Ordered sequence of administration: polyethylene glycol, then bisacodyl until BM achieved. calcium carbonate chewable tablet 400 mg of calcium (T UMS) 1224 (MAY Hold - Provider: Transfer Provider, Automatic - Reason: Patient not available)1833 ([facility] Unhold - Provider: Transfer Provider, Automatic) 400 mg of calcium, oral, Every 2 hour TN N, heartburn, indigestion, Starting on Sun10/04/21 at 0135, Doses listed are in mg of elemental calcium. Take with food. 500 mg calcium carbonate contains 200 mg of elemental calcium. cellulose, oxidized 2 x 14 pad (SURGICEL) (CANCELED) 1633 (Given - Provider: Manny Cordova M.D. - Comment: Left Cranial) As needed, Starting on Sun10/07/21 at 1633, Intra-Op D5W infusion 10-250 mL/hr, intravenous, As needed, Me dications Incompatible with 0.9% NaCL, Starting on Sun10/09/21 at 1300, Infuse at the same rate as the piggyback until tubing clears or up to a volume of 20 mL pr e and post infusion for medications inco mpatible with 0.9% NaCL. Use 100 mL bag then discard. D5W infusion 10-250 mL/hr, intravenous, As needed, Me dications Incompatible with 0.9% NaCL, Starting on Sun10/09/21 at 1306, Infuse at the same rate as the piggyback until tubing clears or up to a volume of 20 mL pr e and post infusion for medications inco mpatible with 0.9% NaCL. Use 100 mL bag then discard. dexAMETHasone injection 10 mg (DECADRON) (COMPLETED) 1 322 (Given - Provider: Marybel Gillespie, NURSE MANAGER, MONOGRAM TECHNICIAN) 10 mg, intravenous, Once in surgery, OR use only, Starting on Sun10/07/21 at 1227, For 1 dose, Intra-Op, Please confirm with surgical service prior to administering. fentaNYL injection 25 mcg (SUBLIMAZE) 25 mcg, intravenous, Every 2 hour PRN, s evere pain or score 7-10 of 10, Starting on Sun10/07/21 at 1902, For 2 doses, For breakthrough pain unrelieved 30 minutes after PRN pain medication is used. May a dminister IV pain medication concurrentl y with PRN oral medication if pain is greater than or equal to 7 in order to provide immediate relief. gadobutrol injection 0.01-30 mL (GADAVIST) (COMPLETED) 0944 (Given - Provider: [place](R)(MR) - Comment: [id number]) 0.01-30 mL, intravenous, Once in imaging , contrast, Starting on Sun10/08/21 at 0944, For 1 dose, Imaging Protocol Orders, Dose per Radiant Medication Guidelines Intrathecal doses greater than 0.25 mL not recommended. gelatin sponge,absorb-porcine 50 sponge (GELFOAM) (CAN CELED) 1634 (Given - Provider: Manny Cordova M.D. - Comment: Left Cranial) As needed, Starting on Sun10/07/21 at 1634, Intra-Op heparin flush 500 Units (COMPLETED) 1318 (Given - Provider: Francy Pagan, R.N.) 500 Units, intra-catheter, During hospit alization, line care, Prior to discharge, Starting on Sun10/09/21 at 1306, For 1 dose, Implanted Vascular Access Device (IVAD) Venous Non-Valved: Following saline flush prior to discharge. hydrALAZINE tablet 25 mg (APRESOLINE) 25 mg, oral, Every 6 hours PRN, Second-l ine (after labetalol): SBP >160 mmHg; hold for HR >100 BPM., Starting on Sun10/07/21 at 1902 lidocaine-EPINEPHrine 1 %-1:100,000 injection (XYLOCAI NE W/EPI) (CANCELED) 1419 (Given - Provider: Pratima Kellogg M.D., Ph.D.) As needed, Starting on Sun10/07/21 at 1419, Intra-Op magnesium hydroxide suspension 30 mL (MILK OF MAGNESIA) 30 mL, oral, Daily PRN, constipation, St arting on Sun10/07/21 at 1902, Give if no bowel movement by post-operative day 3. NaCl 0.9% infusion 10-250 mL/hr, intravenous, As needed, Be tween Consecutive Piggyback Medications, Starting on Sun10/09/21 at 1300, Infuse at the same rate as the piggyback until tubing clears or up to a volume of 20 mL. Select for IV medication administration when no maintenance IV available or when IV medications are not compatible with maintenance fluid. NaCl 0.9% infusion 10-250 mL/hr, intravenous, As needed, Po st Medications (Hazardous/Low Fluid Volume), Starting on Sun10/09/21 at 1300, Infuse at the same rate as the medication until tubing cleared of medication, then discard. NaCl 0.9% infusion 10-250 mL/hr, intravenous, As needed, Be tween Consecutive Piggyback Medications, Starting on Sun10/09/21 at 1306, Infuse at the same rate as the piggyback until tubing clears or up to a volume of 20 mL. Select for IV medication administration when no maintenance IV available or when IV medications are not compatible with maintenance fluid. NaCl 0.9% infusion 10-250 mL/hr, intravenous, As needed, Po st Medications (Hazardous/Low Fluid Volume), Starting on Sun10/09/21 at 1306, Infuse at the same rate as the medication until tubing cleared of medication, then discard. naloxone injection 0.2 mg (NARCAN) 0.2 mg, intravenous, As needed, respirat ory depression, Starting on Sun10/07/21 at 1902, For RASS Score -4 or less, respiratory rate of less than 8 breaths/min. Notify provider/service and rapid response team (if available at institution). ondansetron (PF) injection 4 mg (ZOFRAN) 4 mg, intravenous, Every 6 hours PRN, na usea, vomiting, Starting on Sun10/07/21 at 1902, For 48 hours, Reassess for nausea or vomiting after at least 10 minutes. If nausea or vomiting persists administe r next ordered antiemetic medications (o rder for antiemetic medication administration ondansetron then haloperidol then prochlorperazine). oxyCODONE IR tablet 10 mg (ROXICODONE)(Linked Group 2) 10 mg, oral, Every 4 hours PRN, severe p ain or score 7-10 of 10, or for pain greater than comfort goal, Starting on Sun10/07/21 at 1902 oxyCODONE IR tablet 5 mg (ROXICODONE)(Linked Group 2) 5 mg, oral, Every 4 hours PRN, severe pa in or score 7-10 of 10, Starting on Sun10/07/21 at 1902 sodium chloride 0.9 % injection 10 mL 1224 ([facility] Hold - Provider: Transfer Provider, Automatic - Reason: Patient not available)1833 ([facility] Unhold - Provider: Transfer Provider, Automatic) 10 mL, intravenous, As needed, line care , Starting on Sun10/04/21 at 0134, Peripheral Intravenous Catheter and Rapid Infusion Catheter, prior to blood sampling, post blood transfusion or post blood sampling sodium chloride 0.9 % injection 10 mL 10 mL, intravenous, During hospitalizati on, line care, Prior to discharge, Starting on Sun10/09/21 at 1306, For 1 dose, Implanted Vascular Access Device (IVAD) Venous Non-Valved: Followed by heparin flush prior to discharge. sodium chloride 0.9 % injection 3 mL 1224 ([facility] Hold - Provider: Transfer Provider, Automatic - Reason: Patient not available)1833 ([facility] Unhold - Provider: Transfer Provider, Automatic) 3 mL, intravenous, As needed, line care, Starting on Sun10/04/21 at 0134, Prior to and following infusion and between multiple consecutive infusions: sodium chloride 0.9 % injection vancomycin powder 1 g (COMPLETED) 1655 (Given - Provid er: Manny Cordova M.D. - Comment: Left Cranial) 1 g, topical, Once in surgery, OR use on ly, Starting on Sun10/07/21 at 1227, For 1 dose, Intra-Op, Do not reconstitute Linked Groups Order Group 1: dexAMETHasone injection 4 mg (DECADRON) (COMPLETED)Jump to med 4 mg, intravenous, 4 times daily, First dose on Sun10/07/21 at 2100, For 3 doses
Convert to PO when tolerated.
Followed by dexAMETHasone tablet 4 mg (DECADRON)Jump to med 4 mg, oral, 4 times daily, First dose on 10/08/21 at 1700, For 5 doses
Contact pharmacist if IV needed.
Followed by dexAMETHasone tablet 3 mg (DECADRON)Jump to med 3 mg, oral, 4 times daily, First dose on Sun10/09/21 at 2100, For 8 doses
Contact pharmacist if IV needed.
Followed by dexAMETHasone tablet 2 mg (DECADRON)Jump to med 2 mg, oral, 4 times daily, First dose on Sun10/11/21 at 2100, For 8 doses
Contact pharmacist if IV needed.
Followed by dexAMETHasone tablet 1 mg (DECADRON)Jump to med 1 mg, oral, 4 times daily, First dose on [place] 10/13/21 at 2100, For 8 doses
Contact pharmacist if IV needed.
Group 2: oxyCODONE IR tablet 5 mg (ROXICODONE)Jump to med 5 mg, oral, Every 4 hours PRN, severe pa in or score 7-10 of 10, Starting on Sun10/07/21 at 1902 Or oxyCODONE IR tablet 10 mg (ROXICODONE)Jump to med 10 mg, oral, Every 4 hours PRN, severe p ain or score 7-10 of 10, or for pain greater than comfort goal, Starting on Sun10/07/21 at 1902 documented in this encounter Additional Health Concerns Infection Onset Date Last Indicated Resolved Time COVID19 Pending 10/04/2021 10/04/2021 10/04/2021 2:08 AM CDT documented as of this encounter Care Teams [employer] Relationship Specialty Start Date End Date Elsewhere, Pcp PCP - General Internal Medicine 10/03/21 documented as of this encounter
--- OUTSIDE RECORDS SUMMARY | 2021-11-18 09:36 | XMS_ITS | Encounter Summary ---
:1945 Author Organization [facility] Address [address] [place] [id number] Care Team Providers Name Role Phone Unavailable Primary Care Provider Unavailable Encounter Details Date Type Department Care Team Description 12/30/2014 Hospital Encounter HX [facility] Brendon Stewart III, M.D. [address] [place] [phone] (Wo rk) Social History Tobacco Use Types Packs/Day Years Used Date Smoking Tobacco: Never Assessed Sex Assigned at Date Recorded Not on file documented as of this encounter Last Filed Vital Signs Vital Sign Reading Time Taken Comments Blood Pressure 132/70 12/30/2014 12:51 PM CDT Pulse - - Temperature - - Respiratory Rate - - Oxygen Saturation - - Inhaled Oxygen Concentration - - Weight 74.7 kg (164 lb 10.9 oz) 12/30/2014 12:51 PM CDT Height 171 cm (5' 7.32) 12/30/2014 12:51 PM CDT Body Mass Index 25.55 12/30/2014 12:51 PM CDT documented in this encounter Progress Notes Yi Maloney R.N. - 12/30/2014 12:51 PM CDT Medicare Wellness Visit Document Has Been Updated Medicare Wellness Visit Entered On: 12/30/2014 13:41 CDT Performed On: 12/30/2014 12:51 CDT by YI MALONEY RN Health Assessment Languages : Mohawk YI MALONEY RN - 01/04/2015 10:15 CDT Med Well Reason for visit : Subsequential Annual Wellness Visit Systolic Blood Pressure : 132 mmHg Diastolic Blood Pressure : 70 mmHg BP Location : Right upper extremity Blood Pressure Cuff Size : Regular Weight Source : Standing scale Height : 171.0 cm(Converted to: 5 ft 7 inch(es), 67 inch(es)) Actual Weight : 74.7 kg(Converted to: 164 lb 11 oz) Body Mass Index : 25.55 kg/m2 Clinic BSA : 1.88 SHENAEDILIAYI Haynes MIKY HOLLOWAY - 12/30/2014 12:51 CDT Subjective Pain Symptoms : No Seat Belt Use : Yes Known Obstructive Sleep Apnea : No - NOT diagnosed with SELIN GI Symptoms : Belching, Heartburn, Other: Zantac Musculoskeletal Symptoms : Joint stiffness, Other: bilateral knees Visual Acuity : Glasses YI MALONEY RN - 12/30/2014 12:51 CDT SELIN Assessment Do you have high blood pressure or have you been told to take medication for high blood pressure? : No Frequency of Snoring : Sometimes (1-2 times per month) Frequency of Gasping, Choking, Snorting : Never Total Number of Historical Features : 0 Neck Circumference (cm) : 40/41 Total Sleep Apnea Clinical Score Calc : 3 YI MALONEY RN - 12/30/2014 12:51 CDT Allergy Latex Reaction : No Latex Hives/Itch : No Latex Congestion/Eye Irr/Breathing : No Latex Symptom Progression : No Latex Previous Test : No YI MALONEY RN - 12/30/2014 12:51 CDT (As Of: 12/30/2014 13:41:15 CDT) Allergies (Active) NKA Estimated Onset Date: Unspecified ; Created By: TOMAS AUGUSTE RN; Reaction Status: Active ; Category: Drug ; Substance: NKA ; Type: Allergy ; Updated By: TOMAS AUGUSTE RN; Reviewed Date: 12/10/20139:30 CDT Medication Management Medication List (As Of: 12/30/2014 13:41:15 CDT) Home Meds ranitidine : ranitidine ; Status: Documented ; Ordered As Mnemonic: Zantac 75 ; Simple Display Line:75 mg, PO, Daily ; Catalog Code: ranitidine ; Order Dt/Tm: 11/30/2013 08:08:57 Dependent Habits Tobacco Use/Currently Using : No Smoking Status : Former smoker YI MALONEY RN - 12/30/2014 12:51 CDT Tobacco Use Grid Type : Cigarettes Cigarette Use Packs/Day : 2 Last Use : 2001 YI MALONEY RN - 12/30/2014 12:51 CDT Alcohol Use : No YI MALONEY RN - 12/30/2014 12:51 CDT Caffeine Use Grid Caffeine Use : Current Type : Coffee, Soft drinks Amount : 2-4 YI MALONEY RN - 12/30/2014 12:51 CDT Recreational Drug Use Grid Drug Use : None YI MALONEY RN - 12/30/2014 12:51 CDT Psychosocial Domestic Abuse Concerns : None Marital Status : Years of Marriage : 44 Number of Children : 0 Behavioral Health Screen/Safety Assmt : No 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 Education : Other: Ayi Laileve YI MALONEY RN - 12/30/2014 12:51 CDT PHQ-9 Little interest or pleasure in doing things : Not at all Feeling down, depressed, or hopeless : Not at all Trouble falling or staying asleep, or sleeping too much : Not at all Feeling tired or having little energy : Not at all Poor appetite or overeating : Not at all Feeling bad about yourself or that you are a failure : Not at all Trouble concentrating on things : Not at all Moving or speaking slowly; restless or fidgety : Not at all Thoughts that you would be better off /hurting self : Not at all PHQ-9 Calculated Score : 0 Problems make work, home, or dealing with others : Not difficult at all YI MALONEY RN - 12/30/2014 12:51 CDT Mini-Cog Exam Med Well Mini Cog Recall : 3 Med Well Mini Cog Test Result : Negative Concerns : none YI MALONEY RN - 12/30/2014 12:51 CDT Vision Testing Med Well Date of last eye exam : 12/30/2009 CDT Corrective Lenses : Glasses Eyes, Both with Correction : 20/50 Comments : 20/40 separate Rt. and lt. YI MALONEY RN - 12/30/2014 12:51 CDT Nutrition Perception of Body Size : Just right Nutrition Risk Factors by History Adult : None Home Diet : Regular Meal Pattern : 2-3 meals per day Feeding Ability : Complete independence Eating Difficulties : None Appetite : Good YI MALONEY RN - 12/30/2014 12:51 CDT Functional Living Situation : Home independently Current Daily Living Assistance : None Home Equipment : None Mobility Assistance Prior to Admission : Independent Rising From Chair Fall Risk Hendrich : Able to rise in a single movement, no loss of balance with steps Gait : Steady Timed Up and Go Test Time : 8 second(s) Sensory Deficits : None Med Well Corrective Devices : Glasses [facility] [employer] Safety Comment : needs an eye appointment [facility] Safety Vision Hearing Mobility : No Current Home Treatments : None Special Services and Community Resources : None YI MALONEY RN - 12/30/2014 12:51 CDT Advance Directive Advanced Directives : No Advance Directive Additional Information : No YI MALONEY RN - 12/30/2014 12:51 CDT Exercise Exercise Type : None, Walking, Other: winter time on the treadmill YI MALONEY RN - 12/30/2014 12:51 CDT Education Learning Style Preference Adult Grid Patient : Demonstration, Verbal explanation Family : None YI MALONEY RN - 12/30/2014 12:51 CDT Referrals/Recommendations [facility] Referrals Recommended : Optometry/Ophthalmology [facility] Nutrional plan recommended : Limit dietary fat/cholesterol Preventative Screening : Preventative screening checklist reviewed and updated, Patient provided written preventative screening checklist [facility] Well Provider Notified : RALPH BAZAN III, MD, MARY PATRICIA RN - 12/30/2014 12:51 CDT Source: [facility] [employer] Document Id: [id number]!3 documented in this encounter H&P Notes Yi Maloney R.N. - 12/30/2014 12:47 PM CDT [id number] Crow is a very pleasant 69-year-old male who comes in today for his subsequent Medicare Annual Wellness visit. PHYSICAL EXAMINATION Weight is 74.7 kg, height 171.0 cm. Blood pressure 132/70 on the right arm with regular cuff. Body mass index 25.5. OBSTRUCTIVE SLEEP APNEA ASSESSMENT Neck circumference is 40 cm. Total sleep apnea clinical score of 3. ALLERGIES No known drug allergies. MEDICATIONS Ranitidine 75 mg oral tablet, 1 tablet by mouth daily. PAST MEDICAL/SURGICAL HISTORY PAST MEDICAL HISTORY: 1. Acid reflux. 2. History of right hand injury with 4 digital fractures. 3. Trauma to face and mouth resulting in broken teeth; work injury. PAST SURGICAL HISTORY: No surgical history. SOCIAL HISTORY Crow has 12 years of formal education and 2 years at the [employer]. He served in the from 1965 to 1968 during the [place] War. 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 He is retired, he did soin 2012. He is to his Adrianne 44 years. They live in their own home in [place], [place]. They have 2 house pets; cats. Diet and nutrition: He eats a well-balanced diet on most days. During the winter months he takes a multivitamin supplement. Exercise: He has no formal routine form of exercise. However, he stays very active. He cuts wood and they burn wood in the furnace for winter.He is a very Avid sandro and fisherman. They have a treadmill that he uses on occasion. Tobacco Use:He is a former tobacco user. Last use was in 2002. Caffeine use is current, about 1 to 2 cups of coffee per day and 1 bottle of soda. Alcohol use is 1 time per year, 1 shot of alcohol at the beginning of hunting season. FAMILY HISTORY He and his have no children or grandchildren. His parents are both . His mother [id number], she was 88. She smoked all her life and of complications of lung cancer and a stroke. Hisfather in 1977 at the age of 60. He was an insulin-dependent diabetic for many years and of a heart attack. Crow is the oldest of 6 children. He has 1 sister who is , she at age 19 of carbon monoxide poisoning. He has younger brothers that are twins. He states they are both very overweight. One brother has a problem with very brittle bones, he has had multiple fractures overthe years. One sister he describes as overweight, has had a hysterectomy and hip replacement. His sis ter this year was also diagnosed with a melanoma. COGNITIVE IMPAIRMENT The Mini-Mental State exam was administered. He scored a 31. Interpretation: Is negative for cognitive impairment. POTENTIAL RISK FOR DEPRESSION The PHQ-9 score today is a 0 and he states he sleeps very well every night. FUNCTIONAL ABILITY AND LEVEL OF SAFETY HEARING SCREEN: He denies any hearing aids. His responses to the Medicare Annual Wellness health questionnaire were all benign for hearing deficit. VISION SCREEN: Last eye exam was about 5 years ago. Today, reading the Snellen eye chart with corrective lenses; right eye 20/40, left eye 20/40, both eyes 20/50. He denies any change in his vision, blurry vision, double vision, or eye pain and he is able to read and perform his day-to-day activities to his satisfaction. I have encouraged him to schedule an eye exam as soon as possible as he is overdue. DENTAL EXAMINATION: He has partial plates on both upper and lower teeth. His last dental exam was inAugust, he goes 2 times annually. ACTIVITIES OF DAILY LIVING: He is very independent of all activities of daily living. He is able to manage his own medications. Drives without any restrictions and wears his seatbelt at all times. FALL RISK: He denies any falls in the past year. Today he was observed for his gait and steadiness and walking in the exam room and he did so easily in 8 seconds. He feels their home is well lit. Looserugs have been removed from the floors. Handrails and grab bars are in place. The home is positive for both smoke detector and carbon monoxide detector. HEALTHCARE PROVIDERS/LISTS OF SUPPLIERS His primary care provider is Dr. Ralph Bazan at the [facility] in [place]. His dentist is Dr. Anaya in [place]. His eye doctor, Dr. Bob. EDUCATION, COUNSELING AND RECOMMENDATIONS Today he was given a handout from the [employer] with an 800 number and a website to refer to for the most up-to-date resources in his vicinity. The 2nd handout entitled Eat Well, Use the Plate Method for nutritional guidelines of adult healthy living, and 3rd, The Power of Prevention educational booklet. Page 40 of the booklet was completed today with his most recent preventative service dates, immunization dates, and recommendations for update. His last PSA screen was December 10, 2014 with a value of 0.79. Last diabetes screen December 11, 2013. Fasting blood sugar was 97. Last lipid screen December 11, 2013. Total cholesterol was 177, triglycerides 80, HDL of 46, and LDL of 115. IMMUNIZATION DATES The Pneumovax 23 was given December 10, 2013. Prevnar 13 updated today, December 30, 2014. Tdap March 21, 2006. Influenza December 30, 2014. Zostavax information was provided. VOLUNTARY ADVANCE CARE PLANNING He currently does not have an advance directive. I have encouraged him to complete one and provided him with a copy, which we reviewed. FOLLOWUP INFORMATION FOR DR. BAZAN 1. I have highly encouraged a colonoscopy screen for him. An order has been placed and I have encouraged him to follow through. 2. Secondly, he is due for a glucose screening for diabetes. I have put in a future order for fasting glucose. I look forward to seeing him again in 1 year. Yi Maloney R.N./emili Electronically Signed By: YI MALONEY RN On: 01/04/2015 03:57 PM Modified by and Electronically Signed by: YI MALONEY RN On: 01/04/2015 03:56 PM Co-Signed By: RALPH BAZAN III, MD On: 01/05/2015 04:14 PM Source: [id number] Document Id: [id number] documented in this encounter Plan of Treatment Upcoming Encounters Date Type Specialty Care Team Description 11/18/2021 Appointment Radiation Oncology Luiz Nagy M.D. [address] [place] [address] [phone] (Wo rk) documented as of this encounter Visit Diagnoses Not on filedocumented in this encounter
--- OUTSIDE RECORDS SUMMARY | 2021-11-18 09:36 | XMS_ITS | Encounter Summary ---
:1945 Author Organization [facility] Address [address] [place] [id number] Care Team Providers Name Role Phone Elsewhere, Pcp Primary Care Provider Unavailable Encounter Details Date Type Department Care Team Description 10/07/2021 Documentation [place] Ashley, B.Ch. [address] [place] [address] [place] [phone] [place], [place] [phone] (Wo rk) Social History Tobacco Use Types Packs/Day Years Used Date Smoking Tobacco: Former Smokeless Tobacco: Never Alcohol Use Standard Drinks/Week Comments Defer 0 (1 standard drink = 0.6 oz pure alcoho l) Sex Assigned at Date Recorded Not on file documented as of this encounter Progress Notes Alfredo Shipley M.B., B.Ch. - 10/07/2021 6:31 PM CDT Note created in error. documented in this encounter Plan of Treatment Upcoming Encounters Date Type Specialty Care Team Description 11/18/2021 Appointment Radiation Oncology Luiz Nagy M.D. [address] [place] [address] [phone] (Wo rk) documented as of this encounter Visit Diagnoses Not on filedocumented in this encounter Care Teams Extract Wringer Relationship Specialty Start Date End Date Elsewhere, Pcp PCP - General Internal Medicine 10/03/21 documented as of this encounter
--- OUTSIDE RECORDS SUMMARY | 2021-11-18 09:36 | XMS_ITS | Encounter Summary ---
:1945 Author Organization [facility] Address [address] [place] [id number] Care Team Providers Name Role Phone Unavailable Primary Care Provider Unavailable Encounter Details Date Type Department Care Team Description 05/07/2015 Hospital Encounter HX [facility] Brendon Bazan III, M.D. [address] [place] [phone] (Wo rk) Social History Tobacco Use Types Packs/Day Years Used Date Smoking Tobacco: Never Assessed Sex Assigned at Date Recorded Not on file documented as of this encounter Last Filed Vital Signs Vital Sign Reading Time Taken Comments Blood Pressure 144/68 05/07/2015 12:27 PM HOUSETRAILER SERVICER Pulse 72 05/07/2015 12:27 PM HOUSETRAILER SERVICER Temperature - - Respiratory Rate 20 05/07/2015 12:27 PM HOUSETRAILER SERVICER Oxygen Saturation - - Inhaled Oxygen Concentration - - Weight 76.2 kg (167 lb 15.9 oz) 05/07/2015 12:27 PM HOUSETRAILER SERVICER Height 171 cm (5' 7.32) 05/07/2015 12:27 PM HOUSETRAILER SERVICER Body Mass Index 26.06 05/07/2015 12:27 PM HOUSETRAILER SERVICER documented in this encounter Medications at Time of Discharge Medication Sig Dispensed Refills Start Date End Date multivitamin capsule Take 1 tablet by mouth 0 daily. documented as of this encounter Progress Notes Shelly Bazan M.D. - 05/07/2015 12:00 AM CST FM-LE CHIEF COMPLAINT/REASON FOR VISIT Vertigo intermittent episodes HISTORY OF PRESENT ILLNESS Mr. Lockwood this is 69-year-old gentleman. He has had intermittent episodes of vertigo. In the past this has been treated by his chiropractor. He does have vestibular maneuvers that he does at home.He did do vestibular maneuvers yesterday and they were not successful. He then made an appointment with the clinic. Today, he feels that his symptoms have completely resolved. He is not experiencing a sensation of room spinning at all. MEDICATIONS Zantac 75, 75 mg, PO, Daily ALLERGIES NKA PAST MEDICAL HISTORY Chronic Disease Gastroesophageal Reflux (GERD SOCORRO) Vertigo Peripheral L Historical No historical problems SOCIAL HISTORY Date Time: 05/07/2015 12:27 Tobacco: Smoking Status: Former smoker Exposure: No Results Found Alcohol: Use: No Recreational Drugs: Use: None Type: No Results Found FAMILY HISTORY Mother:Positive: CA - Lung cancer; Stroke Father:Positive: Coronary artery disease; Diabetes mellitus; Peripheral vascular disease SYSTEMS REVIEW Pertinent positives and negatives of the review of systems are noted in the HPI and the remainder of the complete review of systems is negative. VITAL SIGNS T: 36.8 ??C (Core) HR: 72 RR: 20 BP: 144 / 68 HT: 171 cm WT: 76.2 kg BMI: 26.06 PHYSICAL EXAMINATION GENERAL: The patient is alert, cooperative, and in no acute distress at this time. NEURO: cranial nerves II-XII are grossly intact . Sensation is intact throughout. Genesis-Hallpike maneuver is negative for nystagmus. IMPRESSION/REPORT/PLAN Vertigo Peripheral L He describes benign paroxysmal positional vertigo on the left. If this becomes a recurrent issue. He may call the physical therapy department at any time for a same-day appointment. I spoke with Lucinda Pratima suarez aggie in the physical therapy department. Portions of this chart were completed with speech recognition software. Therefore, please be aware that it may contain recognition errors including nonsensical words, phrases, and missing words. Electronically Signed By: SHELLY BAZAN III, MD On: 05/09/2015 04:07 PM Source: [facility] POWERCHART Document Id: [id number] ETRAILER SERVICER documented in this encounter Miscellaneous Notes Miscellaneous - Shelly Bazan M.D. - 05/07/2015 1:07 PM CST Ambulatory Patient Summary [address] [place] [id number] Visit Information Name: CROW LOCKWOOD [facility] Number: [id number] Current Date: 05/07/2015 13:07:20 Physicians Attending Provider: SHELLY BAZAN III, MD Primary Care Provider: SHELLY BAZAN III, MD CROW LOCKWOOD has been given the following list of follow-up instructions, medication list, and patient education materials: Follow-up Instructions Your Medications Here is a list of your medications. It is important to take your medications as directed. Use a pillbox or chart to help remind you to take your medications. Please let your doctor or nurse know if you have problems taking your medications. Medication/Strength How to Take Indications/Special Instructions/Comments/Notes for Patient Medication Changes/Routing ranitidine (Zantac 75) 75 mg, Oral, once a day Stop Taking the Following Medications: Medication list as of 05-07-15 13:07 Attention: If you have any medications at home that are not on this list, DO NOT take them until youcontact your provider for clarification. Give a copy of your medication list to your primary care provider. Update your medication list any time medications or doses are changed and carry your medication list at all times in case of emergency. Electronically Signed By: Signed On: Your Allergies & Intolerances Substance Reaction Symptoms Category Comments No Known Allergies Drug Your Problem List Problem Status Onset Comments No Problems found Your Upcoming Appointments Date Time Location Provider No Appointments found Attention: Contact your local Clinic if further appointment detail needed. Managing Balance Problems: Vestibular Rehabilitation Therapy An inner ear problem can knock out part of the balance system. Vestibular rehabilitation therapy helps you learn how to rely on specific parts of your balance system. Checking Eye Movement The therapist will check for nystagmus. This is an automatic, jumpy eye movement. Nystagmus in certain positions can indicate an inner ear problem. It can even show which semicircular canal is affected. The therapist will watch your eyes while you move into different positions. Treating Your Condition Treatment can include: ?? Canalith repositioning, a series of guided head and body movements. It helps move crystals, easing BPV symptoms. ?? Habituation exercises to retrain your balance system. The therapist will teach you how to do these exercises at home. ?? Gaze stabilization exercises to retrain the eyes to stay in focus while the head moves. This helps ease dysequilibrium. ?? Gait and balance training, which includes standing and walking on different surfaces. The therapist can teach you how to maintain balance and prevent falls. Doing Habituation Exercises The therapist will teach exercises suited to your condition. Habituation exercises will make you dizzy at first. Just remind yourself that symptoms probably will last for only a minute. If you keep doing the exercises, they will help lessen your dizziness. Then, when you perform a similar movement in daily life, it is less likely to provoke symptoms. Getting Back into Action Dizziness doesn't have to keep you from exercising. Start with activities that don't trigger episodes. Then ease into more challenging activities. Try these tips: ?? Always exercise with a partner. ?? Stop if you have nausea or faintness. ?? Walk on a treadmill, holding on to the handles for support. ?? Use a ball machine for sports like tennis until you're ready for a live game. This way you know where to expect the ball. ?? Don't give up. With time, most people can return to activities and sports. ?? [phone] [facility], [address] [place] [address], [place] [address]. All rights reserved. This information is not intended as a substitute for professional medical care. Always follow your healthcare professional's instructions. Consider Using Patient Online Services Patient Online Services is a secure online and Mobile application that lets you: ?? View lab and test results ?? View portions of your medical record including clinical notes, immunizations and discharge summaries ?? Request an appointment or medication refill ?? Review your appointment schedule ?? Send secure messages to your care team Its easy to create an account if you dont have one. Go to [email or web address] and click on Create Your Account. Then, follow the directions to complete the online form. Youll be asked for your [facility] number which you can find at the top of this document. Your Goals/Additional instructions: Source: [facility] POWERCHART Document Id: [id number] ETRAILER SERVICER Miscellaneous - Shelly Bazan M.D. - 05/07/2015 1:07 PM CST Ambulatory Discharge Medication List [address] [place] [id number] Visit Information Name: CROW LOCKWOOD [facility] Number: [id number] Visit Date: 05/07/2015 13:07:19 Attending Provider: SHELLY BAZAN III, MD Primary Care Provider: SHELLY BAZAN III, MD CROW LOCKWOOD has been given the following list of medications: Your Medications It is important to take your medications as directed. Use a pill box or chart to help remind you to take your medications. Please let your doctor or nurse know if you have problems taking your medications. Medication/Strength How to Take Indications/Special Instructions/Comments/Notes for Patient Medication Changes/Routing ranitidine (Zantac 75) 75 mg, Oral, once a day Stop Taking the Following Medications: Medication list as of 05-07-15 13:07 Attention: If you have any medications at home that are not on this list, DO NOT take them until youcontact your provider for clarification. Give a copy of your medication list to your primary care provider. Update your medication list any time medications or doses are changed and carry your medication list at all times in case of emergency. Electronically Signed By: Signed On: Additional Information: Source: [facility] POWERCHART Document Id: [id number] ETRAILER SERVICER Miscellgeno - Zahraa De La Torre, L.P.N. - 05/07/2015 12:27 PM CST Adult Funeral Attendant Intake/History Document Has Been Updated Adult Funeral Attendant Intake/History Entered On: 05/07/2015 12:33 HOUSETRAILER SERVICER Performed On: 05/07/2015 12:27 HOUSETRAILER SERVICER by ZAHRAA DE LA TORRE LPN Intake Temperature Core : 36.8 DegC(Converted to: 98.2 DegF) Chief Complaint : Vertigo intermittent episodes ZAHRAA DE LA TORRE LPN - 05/07/2015 12:33 HOUSETRAILER SERVICER Peripheral Pulse Rate : 72 /min Respiratory Rate : 20 /min Systolic Blood Pressure : 144 mmHg (HI) Diastolic Blood Pressure : 68 mmHg NIBP Mean : 93 mmHg BP Location : Left upper extremity Blood Pressure Cuff Size : Regular Height : 171 cm(Converted to: 5 ft 7 inch(es), 67 inch(es)) Actual Weight : 76.2 kg(Converted to: 168 lb 0 oz) Weight Source : Standing scale Dosing Weight Clinic : 76.2 kg Clinic BSA : 1.9 Body Mass Index : 26.06 kg/m2 ZAHRAA DE LA TORRE LPN - 05/07/2015 12:27 HOUSETRAILER SERVICER General Info Information Given By : Patient Languages : Hungarian Is Patient Female and 13-50 no hysterectomy : No ZAHRAA DE LA TORRE LPN - 05/07/2015 12:27 HOUSETRAILER SERVICER Subjective Pain Symptoms : No ZAHRAA DE LA TORRE LPN - 05/07/2015 12:27 HOUSETRAILER SERVICER Dependent Habits Smoking Status : Former smoker Tobacco 2A : Yes Tobacco Use/Currently Using : No Tobacco Use/Last 30 Days : No Tobacco Use/Last 12 months : No Tobacco Last Use/Year : 2001 ZAHRAA DE LA TORRE LPN - 05/07/2015 12:27 HOUSETRAILER SERVICER Caffeine Use Grid Caffeine Use : Current Type : Coffee, Soft drinks Amount : 2-4 ZAHRAA DE LA TORRE LPN - 05/07/2015 12:27 HOUSETRAILER SERVICER Recreational Drug Use Grid Drug Use : None ZAHRAA DE LA TORRE LPN - 05/07/2015 12:27 HOUSETRAILER SERVICER Source: [facility] POWERCHART Document Id: [id number] HOUSETRAILER SERVICER!4 ETRAILER SERVICER Miscellaneous - Zahraa De La Torre, L.P.N. - 05/07/2015 12:25 PM CST Health Assessment Health Assessment Entered On: 05/07/2015 12:27 HOUSETRAILER SERVICER Performed On: 05/07/2015 12:25 HOUSETRAILER SERVICER by ZAHRAA DE LA TORRE LPN Health Assessment Complete Health Assessment Complete or Modified : Annual Health Assessment Annual Health Assessment Completed : Yes ZAHRAA DE LA TORRE LPN - 05/07/2015 12:25 HOUSETRAILER SERVICER Nutrition Nutrition Risk Factors by History Adult : None ZAHRAA DE LA TORRE [facility] 05/07/2015 12:25 HOUSETRAILER SERVICER Functional Current Daily Living Assistance : None CK ZAHRAA Fine [facility] 05/07/2015 12:25 HOUSETRAILER SERVICER Dependent Habits Smoking Status : Former smoker Tobacco 2A : Yes Tobacco Use/Currently Using : No Tobacco Use/Last 30 Days : No Tobacco Use/Last 12 months : No Tobacco Last Use/Year : 2001 ZAHRAA DE LA TORRE [facility] 05/07/2015 12:25 HOUSETRAILER SERVICER Caffeine Use Grid Caffeine Use : Current Type : Coffee, Soft drinks Amount : 2-4 ZAHRAA DE LA TORRE [facility] 05/07/2015 12:25 HOUSETRAILER SERVICER Alcohol Use : No ZAHRAA DE LA TORRE [facility] 05/07/2015 12:25 HOUSETRAILER SERVICER Recreational Drug Use Grid Drug Use : None ZAHRAA DE LA TORRE [facility] 05/07/2015 12:25 HOUSETRAILER SERVICER Psychosocial Domestic Abuse Concerns : None Behavioral Health Screen/Safety Assmt : No Bahai Preference : Unknown ZAHRAA DE LA TORRE [facility] 05/07/2015 12:25 HOUSETRAILER SERVICER Advance Directive Advanced Directives : No Advance Directive Additional Information : No ZAHRAA DE LA TORRE [facility] 05/07/2015 12:25 HOUSETRAILER SERVICER Educ Needs Learning Style Preference Adult Grid Patient : None Family : None ZAHRAA DE LA TORRE [facility] 05/07/2015 12:25 HOUSETRAILER SERVICER [facility] P[facility] Document Id: [id number] HOUSETRAILER SERVICER!35 ETRAILER SERVICER documented in this encounter Plan of Treatment Upcoming Encounters Date Type Specialty Care Team Description 11/18/2021 Appointment Radiation Oncology Luiz Nagy M.D. [address] [place], [place] [phone] (Wo rk) documented as of this encounter Visit Diagnoses Not on filedocumented in this encounter
--- OUTSIDE RECORDS SUMMARY | 2021-11-18 09:36 | XMS_ITS | Encounter Summary ---
:1945 Author Organization [facility] Address [address] [place] [id number] Care Team Providers Name Role Phone Unavailable Primary Care Provider Unavailable Encounter Details Date Type Department Care Team Description 12/10/2013 Hospital Encounter HX [facility] [place] Fernando Gray M.D. [address] [place] [phone] (Wo rk) Social History Tobacco Use Types Packs/Day Years Used Date Smoking Tobacco: Never Assessed Sex Assigned at Date Recorded Not on file documented as of this encounter Last Filed Vital Signs Vital Sign Reading Time Taken Comments Blood Pressure 136/84 12/10/2013 8:55 AM CDT Pulse - - Temperature - - Respiratory Rate - - Oxygen Saturation - - Inhaled Oxygen Concentration - - Weight 75.9 kg (167 lb 5.3 oz) 12/10/2013 8:55 AM CDT Height 172 cm (5' 7.72) 12/10/2013 8:55 AM CDT Body Mass Index 25.66 12/10/2013 8:55 AM CDT documented in this encounter H&P Notes Yi Maloney R.N. - 12/10/2013 8:47 AM CDT [id number] Crow is a very pleasant, 68-year-old male who comes in today for his initial Medicare Annual Wellness visit. PHYSICAL EXAMINATION VITAL SIGNS: Weight is 75.9 kg. Height 172 cm. Blood pressure 136/84 on the right arm with a regular cuff. Body mass index of 25, normal range. OBSTRUCTIVE SLEEP APNEA ASSESSMENT: Neck circumference is 40 cm. Total sleep apnea clinical score of3. ALLERGIES No known drug allergies. MEDICATIONS Ranitidine 75 mg oral tablet 1 tablet by mouth daily. PAST MEDICAL/SURGICAL HISTORY PAST MEDICAL HISTORY: Acid Reflux. History of right hand injury with 4 digital fractures. History of trauma to face and mouth resulting in several broken teeth. This was a work injury. PAST SURGICAL HISTORY: Denies any past surgical history. SOCIAL HISTORY Crow has 12 years of formal education plus [address] [employer]. He [place] . He served in the from the years of January 1966 through October 1968. 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 He retired completely in 2012. He is to his , Adrianne of 43+ years. They own their own home in [place]. They have 2 pets house cats. Diet and nutrition: He eats a fairly well-balanced diet. I do not believe it includes enough fruits and vegetables, but he feels that it is quite balanced. In the winter months he takes a multivitamin supplement. Exercise: He does not have any formal routine exercise however he stays very active every day. They burn wood in their furnace so he is cutting wood a lot of yard work to do he is an avid sandro and fisherman. So he does a lot of walking outdoors and in the winter months. He states he does use the treadmill occasionally. Tobacco use: He is a former tobacco user. Last use was in 2002. He had been smoking up to 2 packs per day. Caffeine use: Current usually 1 to 2 cups of coffee and 1 bottle of soda per day. Alcohol use: He states he has usually 1 shot of alcohol at the beginning of the hunting season annually otherwise he no longer is an alcohol user. FAMILY HISTORY He and his have no children or grandchildren. His parents are both . His mother [id number]. She was 88 years old. She was a lifelong smoker. She of complications of lung cancer and a stroke. His father in 1977, at the age of 60. He had been insulin-dependent diabetic for many years and of a heart attack. He has 1 grandfather that he recalls in 1957 of colon cancer. Siblings: He is the oldest of 6 children. He has 1 sister who is she at age 19 of carbon monoxide poisoning. He has younger brothers that are twins he states are both overweight and 1 of which has he defines as very brittle bones he has had several fractures. One sister who he describes as overweight and has had history of hip replacement and a hysterectomy COGNITIVE IMPAIRMENT The mini-mental state exam was given. He scored 30. Interpretation: Negative for cognitive impairment. POTENTIAL RISK FOR DEPRESSION The PHQ-9 score is 0. He does not have difficulty with sleeping at night. FUNCTIONAL ABILITY AND LEVEL OF SAFETY He does not wear any hearing devices. His responses to the Medicare Annual Wellness health questionnaire were positive for some hearing deficit. He states if he should need a hearing aid in the future he would get that through the [facility]. Vision screen: Last eye examination was about 3 years ago. At that time he was told he had the beginnings of some cataracts. Today reading the Snellen eye chart with corrective lenses, right eye 20/30 left eye 20/20, both eyes 20/20. He has not noticed any change in his vision, blurry vision, double vision, or eye pain, and is able to read and perform his day-to-day activities to his satisfaction. Dental exam: He has both an upper and lower partial plate. He has cleanings every 6 months. In October and March of the year. Activities of daily living: He is independent of all activities of daily living. He is able to manage his own medication. Continues to drive without restrictions and wears a seatbelt 100% of the time. Fall risk: He admits to some falls during the year usually tripping when in the [place] nothing that caused him any injury. He states he notices when he is starting to tire and at that time he tends to be more apt to trip. The get-up and go test was performed in the exam room. He was observed for gait u nsteadiness and walking and did so in less than 10 seconds. HOME SAFETY The house is positive for both carbon monoxide detector and smoke detector. There are guns in the house, some of which are loaded but in a case, and his is aware of where these are kept. There areno children in the home. The others are kept separate of the ammunitions. HEALTHCARE PROVIDERS AND LIST OF SUPPLIERS He will be looking to establish care with a primary care provider here at [facility], I believe Dr. Ferguson. He will be scheduling an appointment with him in the near future. Dr. Anaya [place] is his dentist. Dr. Bob at [place] his eye doctor. EDUCATION COUNSELING AND RECOMMENDATIONS 1. Today he was given a handout from the [facility] entitled Eat Well Use the Plate Method which describes what proper serving sizes and food groups to include in a daily diet. 2. The Power of Prevention educational booklet from [facility]. Page 40 of the booklet was completed today with his most recent preventative service dates, immunization dates, and recommendations for update. Crow admits it has been several years since he has ever followed a doctor routinely. He has DOT physicals every 2 years with a doctor in [place]. I have advised him this is a great opportunity to began his health and wellness planning for the future, and these tests will be scheduled. IMMUNIZATION DATES The Pneumococcal vaccine was updated today December 10, 2013, Tdap March of 2006 and influenza the high-dose flu was given today December 10, 2013. VOLUNTARY ADVANCE CARE PLANNING He does not have an advance directive. Information was provided for him today and he was encouraged to complete that and return it to be scanned into his record. FOLLOWUP PLAN 1. I have ordered screenings for a lipid panel, fasting glucose, and a PSA. 2. I have encouraged him to schedule an eye exam it has been greater than 3 years. 3. He was advised to establish a primary care provider, to do manual prostate exam. 4. He was also advised to schedule a colonoscopy the process was discussed with him and his plan is to come back and do that through his primary care provider within the next 3 months. I will plan to follow up with him again in 1 year. Yi Maloney R.N./emili Electronically Signed By: YI MALONEY RN On: 12/10/2013 01:53 PM Modified by and Electronically Signed by: YI MALONEY RN On: 12/10/2013 01:53 PM Co-Signed By: SHELLY FERGUSON III, MD On: 12/10/2013 03:39 PM Source: [facility] MHSDOLBEYNONRADSYS Document Id: [id number] documented in this encounter Procedure Notes Yi Maloney R.N. - 12/10/2013 9:17 AM CDT Vision Testing Vision Testing Entered On: 12/10/2013 9:29 CDT Performed On: 12/10/2013 9:17 CDT by YI MALONEY RN Vision Testing Corrective Lenses : Glasses Eye, Right with Correction : 20/30 Eye, Left w/Correction : 20/20 Eyes, Both with Correction : 20/20 YI MALONEY RN - 12/10/2013 9:17 CDT Source: [employer] Document Id: [id number] CDT!6 documented in this encounter Miscellaneous Notes Miscellaneous - Yi Maloney R.N. - 12/10/2013 9:11 AM CDT PHQ-9 PHQ-9 Entered On: 12/10/2013 9:11 CDT Performed On: 12/10/2013 9:11 CDT by YI MALONEY RN PHQ-9 Little interest or pleasure in doing [...] difficult at all YI MALONEY RN - 12/10/2013 9:11 CDT Source: [facility] POWERCHART Document Id: [id number] CDT!13 Yi Carolina R.N. - 12/10/2013 9:08 AM CDT Obstructive Sleep Apnea Obstructive Sleep Apnea Entered On: 12/10/2013 9:11 CDT Performed On: 12/10/2013 9:08 CDT by YI MALONEY RN SELIN Screening Known Obstructive Sleep Apnea : No - NOT diagnosed with SELIN YI MALONEY RN - 12/10/2013 9:08 CDT SELIN Assessment Do you have high blood pressure or have you been told to take medication for high blood pressure? : No Frequency of Snoring : Often (1-2 times per week) Frequency of Gasping, Choking, Snorting : Rarely (1-2 times per year) Total Number of Historical Features : 0 Neck Circumference (cm) : 40/41 Total Sleep Apnea Clinical Score Calc : 3 YI MALONEY RN - 12/10/2013 9:08 CDT Source: [facility] POWERCHART Document Id: [id number] CDT!10 Yi Carolina R.N. - 12/10/2013 9:04 AM CDT Health Assessment Health Assessment Entered On: 12/10/2013 9:08 CDT Performed On: 12/10/2013 9:04 CDT by YI MALONEY RN Health Assessment Complete Health Assessment Complete or Modified : Annual Health Assessment Annual Health Assessment Completed : Yes YI MALONEY RN - 12/10/2013 9:04 CDT Nutrition Nutrition Risk Factors by History Adult : None YI MALONEY RN - 12/10/2013 9:04 CDT Functional Current Daily Living Assistance : None YI MALONEY RN - 12/10/2013 9:04 CDT Dependent Habits Tobacco Use/Currently Using : No Smoking Status : Former smoker YI MALONEY RN - 12/10/2013 9:04 CDT Tobacco Use Grid Type : Cigarettes Cigarette Use Packs/Day : 2 Last Use : 03-13-2002 YI MALONEY RN - 12/10/2013 9:04 CDT Alcohol Use : Yes YI MALONEY RN - 12/10/2013 9:04 CDT Caffeine Use Grid Caffeine Use : Current Type : Coffee, Energy drinks Amount : 2-4 YI MALONEY RN - 12/10/2013 9:04 CDT Recreational Drug Use Grid Drug Use : None YI MALONEY RN - 12/10/2013 9:04 CDT AUDIT Tool How Often Do You Have A Drink : Monthly or less How Many Drinks in a Day When Drinking : 1 or 2 YI MALONEY RN - 12/10/2013 9:04 CDT Psychosocial Domestic Abuse Concerns : None Jehovah'S Witness Preference : No qualifying data available. YI MALONEY RN - 12/10/2013 9:04 CDT Advance Directive Advanced Directives : No YI MALONEY RN - 12/10/2013 9:04 CDT Educ Needs Learning Style Preference Adult Grid Patient : Printed materials Family : None YI MALONEY RN - 12/10/2013 9:04 CDT Source: [facility] POWERCHART Document Id: [id number] CDT!37 Miscellaneous - Yi Maloney R.N. - 12/10/2013 8:55 AM CDT Adult Grooming Salon Manager Intake/History Adult Grooming Salon Manager Intake/History Entered On: 12/10/2013 9:04 CDT Performed On: 12/10/2013 8:55 CDT by YI MALONEY weaving loom operator Chief Complaint : Medicare Initial Annual Wellness Visit Systolic Blood Pressure : 136 mmHg Diastolic Blood Pressure : 84 mmHg NIBP Mean : 101 mmHg BP Location : Left lower extremity Blood Pressure Cuff Size : Regular Height : 172 cm(Converted to: 5 ft 8 inch(es), 68 inch(es)) Actual Weight : 75.9 kg(Converted to: 167 lb 5 oz) Weight Source : Standing scale Dosing Weight Clinic : 75.9 kg Clinic BSA : 1.9 Body Mass Index : 25.66 kg/m2 YI MALONYE RN - 12/10/2013 8:55 CDT General Info Information Given By : Patient Languages : Japanese Is Patient Female and 13-50 no hysterectomy : No YI MALONEY RN - 12/10/2013 8:55 CDT Subjective Pain Symptoms : No YI MALONEY RN - 12/10/2013 8:55 CDT Dependent Habits Tobacco Use/Currently Using : No Smoking Status : Former smoker YI MALONEY RN - 12/10/2013 8:55 CDT Tobacco Use Grid Type : Cigarettes Cigarette Use Packs/Day : 2 Last Use : 03-13-2002 YI MALONEY RN - 12/10/2013 8:55 CDT Alcohol Use : Yes YI MALONEY RN - 12/10/2013 8:55 CDT Caffeine Use Grid Caffeine Use : Current Type : Coffee, Energy drinks Amount : 2-4 YI MALONEY RN - 12/10/2013 8:55 CDT Recreational Drug Use Grid Drug Use : None YI MALONEY RN - 12/10/2013 8:55 CDT [facility] Document Id: [id number] CDT!37 documented in this encounter Plan of Treatment Upcoming Encounters Date Type Specialty Care Team Description 11/18/2021 Appointment Radiation Oncology Luiz Nagy M.D. [address] [place] [phone] (Wo rk) documented as of this encounter Visit Diagnoses Not on filedocumented in this encounter
--- OUTSIDE RECORDS SUMMARY | 2021-11-18 09:36 | XMS_ITS | Encounter Summary ---
:1945 Author Organization [facility] Address [address] [place] [address] Care Team Providers Name Role Phone Unavailable Primary Care Provider Unavailable Encounter Details Date Type Department Care Team Description 03/24/2015 Hospital Encounter HX [facility] Jeremias Bazan III, M.D. [address] [place] [phone] ([place]) Social History Tobacco Use Types Packs/Day Years Used Date Smoking Tobacco: Never Assessed Sex Assigned at Date Recorded Not on file documented as of this encounter Last Filed Vital Signs Vital Sign Reading Time Taken Comments Blood Pressure - - Pulse - - Temperature - - Respiratory Rate - - Oxygen Saturation - - Inhaled Oxygen Concentration - - Weight - - Height 171 cm (5' 7.32) 03/24/2015 8:25 AM WARRANT CLERK Body Mass Index - - documented in this encounter Plan of Treatment Upcoming Encounters Date Type Specialty Care Team Description 11/18/2021 Appointment Radiation Oncology Luiz Nagy M.D. [address] [place], [place] [phone] (Wo rk) documented as of this encounter Procedures Procedure Name Priority Date/Time Associated Diagnosis Comme nts GLUCOSE, FASTING, Routine 03/24/2015 8:28 AM Resu lts for this S/P WARRANT CLERK procedure are i n the results section. documented in this encounter Results Glucose, Fasting (03/24/2015 8:28 AM WARRANT CLERK) P athologist Signature Glucose, 99 70 - 99 POWERCHART Fasting, S MGDL Specimen (Source) Anatomical Collection Method Collection Time Re ceived Time Location / / Volume Laterality Blood 03/24/2015 8:28 AM WARRANT CLERK Ralph Bazan III, M.D. LAB BLOOD NON ADD-ON Performing Organization Address City/State/ZIP Code Phon e Number POWERCHART documented in this encounter Visit Diagnoses Not on filedocumented in this encounter
--- OUTSIDE RECORDS SUMMARY | 2021-11-18 09:36 | XMS_ITS | Encounter Summary ---
:1945 Author Organization [facility] Address [address] [place] [address] Care Team Providers Name Role Phone Elsewhere, Pcp Primary Care Provider Unavailable Reason for Visit Reason Comments Altered Mental Status Encounter Details Date Type Department Care Team Description 10/07/2021 Surgery RST RADHA FINNEY OR Bebeto Jackson, LEFT frontal craniotomy [address] [place] [address] Reina, Ph.D. [place], [place] [address] [address] [place] [address]. [phone] [place] [id number] Social History Tobacco Use Types Packs/Day Years Used Date Smoking Tobacco: Former Smokeless Tobacco: Never Tobacco Cessation: Counseling Given: Not Answered Alcohol Use Standard Drinks/Week Comments Defer 0 (1 standard drink = 0.6 oz pure alcoho l) Sex Assigned at Date Recorded Not on file documented as of this encounter Last Filed Vital Signs Vital Sign Reading Time Taken Comments Blood Pressure 130/56 10/07/2021 9:45 AM CDT Pulse 71 10/07/2021 9:45 AM CDT Temperature 36.8 ??C (98.2 ??F) 10/07/2021 9:45 AM CDT Respiratory Rate 16 10/06/2021 11:35 PM CDT Oxygen Saturation 100% 10/07/2021 9:45 AM CDT Inhaled Oxygen Concentration - - Weight 82.7 kg (182 lb 5.1 oz) 10/07/2021 8:00 AM CDT Height 172.7 cm (5' 8) 10/04/2021 1:00 AM CDT Body Mass Index 28.16 10/04/2021 1:00 AM CDT documented in this encounter Discharge Summaries Pratima Kellogg M.D., Ph.D. - 10/09/2021 5:26 AM CDT DISCHARGE SUMMARY BRIEF OVERVIEW Hospital: [facility] Discharge Provider: Bebeto Jackson M.D. Primary Team: [facility] Neurologic Surgery - Chief C Primary Care [...] M.D., Ph.D.Manny Cordova M.D.Pratima Kellogg M.D., Ph.D. [facility] ROMB OR DISCHARGE DISPOSITION Home or Self [...] wound, the patient should seek medical attention. Olga: Your incision has been closed with olga. [place] should be removed 14 days after surgery. You may return to [facility] to have your olga removed, or you may schedule an appointment withyour primary care provider to have this done. [...] of a medical emergency you should call 9--1): 1. Neurosurgery Follow-Up: Follow-up appointments will be [...] to change an appointment, please call the grievance coordinator, who can be reached at [phone]. 2. Emergent Clinical Issue: For routine clinical questions, please address as stated above during regular business hours (Sunday-Sunday, 8am-5pm). For emergent concerns during regular business hours please call the [facility] Marketing Analytics Specialist at [phone] and ask to speak to Chief 's Neurosurgery Service; the railcar brake operator will connect you with one of our neurosurgery providers at the hospital. If you have an emergent issue during the evening or weekend hours, please call the [facility] Marketing Analytics Specialist at [phone] and ask to speak to Chief 's Neurosurgery Service; the railcar brake operator will connect you emergently to a physician on the neurosurgery team who is taking call from home. 3. Routine clinical questions and/or 4. Medication refills: For routine clinical questions (questions that can be answered within 24 hours) the preferred methodof communication is the [facility] Patient Portal. Questions for Chief C's service and/or medication refills would be best asked through the portal. If you do not have access to the portal, you may call the neurosurgery office directly at [phone] during normal business hours for any questions [...] she brought him to an ED in [place]. In the ED, vitals were notable for a BP max of 179/68, intermittent aFib (rate around 70s). Labs were unremarkable. CT head show a probably mass in the left frontal lobe with associated vasogenic edema. He was transferred to [facility] for evaluation in the ED. He was [...] after your hospitalization. Discharge Instr - Kat Tom, O.T. - 10/09/2021 12:44 PM CDT Occupational [...] OT: Assistance with meal preparation, Assistance with financial analyst, Assistance with transportation, Assistance with housekeeping, Assistance with shopping, Cognitive assistance needed, Assistance with toilet/shower transfers, Assistance with medication set up/administration, Assistance with showering/bathing, Assistance with dressing Discharge information provided on 10/09/2021 Contact information: [facility], [address], AttachmentsThe following attachments cannot be sent through Care Everywhere. Acetaminophen (By mouth) (Marshallese)Dexamethasone (By mouth) (Marshallese) Levetiracetam (By mouth) (Marshallese)documented in this encounter Medications at Time of [...] - 10/09/2021 12:38 PM CDT Occupational Therapy [facility] Inpatient Progress Note SUBJECTIVE Patient's [...] Dressing Delivery: Assessed UE Dressing Items Included: cover stripper shirt UE Dressing Level of Assistance: Supervision/Set-up [...] OT: Assistance with meal preparation, Assistance with financial analyst, Assistance with transportation, Assistance with housekeeping, Assistance [...] (min): 23 min Kat Haq O.T. Kaila Candelaria, Pharm.D., R.Ph. - 10/08/2021 12:24 PM CDT Clinical Pharmacist Progress Note Crow Orellana is a 76 y.o. male who was admitted to [facility] on 10/03/2021 and now presents to [id number] for post-operative care. Procedures (this admission) 10/07/21 [...] (!) 121 Temp: 36.7 ??C Resp: 12 11 15 13 Height: Weight: SpO2: 95% 94% [...] or concerns please contact; Neurosurgery Chief C, [phone]. AT Pratima Kellogg M.D., Ph.D. - 10/08/2021 [...] medical and radiation oncology - PMR, PT/OT, SUPERVISOR TUBING Location, level of care: PCU Full Code Please page the Neurosurgery Chief C service at [phone] with any questions or concerns. Pratima Kellogg [...] per the resident's note. Madeline Killian O.T., O.T.Shane - 10/07/2021 12:42 PM CDT Occupational Therapy [facility] Inpatient Progress Note SUBJECTIVE Patient's Name: Crow [...] OT: Assistance with meal preparation, Assistance with financial analyst, Assistance with transportation, Assistance with housekeeping, Assistance [...] lung cancer (possibly adenocarcinoma, [facility]; diagnosed in 2019, s/p [...] lobe sulcal effacement. Dexamethasone initiated on 10/05. Robbie held and plan for neurosurgical intervention on [...] -medical oncology consult for further oncological evaluation -PT/OT/SUPERVISOR TUBING # atrial fibrillation on Eliquis # HLD [...] criteria (not met): Tests/procedures/consults Plan discussed with [facility] General Neurology Engineered Wood Designer, Dr. Shipley. Please page the [facility] General Neurology service pager at [phone] with any questions. Pratima Kellogg M.D., Ph.D. [...] for the time being - PMR, PT/OT, SUPERVISOR TUBING Location, level of care: PCU Full Code Please page the Neurosurgery Chief C service at [phone] with any questions or concerns. Pratima Kellogg [...] lung cancer (possibly adenocarcinoma, [facility] and not [facility]; diagnosed in 2019, s/p [...] -medical oncology consult for further oncological evaluation -PT/OT/SUPERVISOR TUBING # atrial fibrillation on Eliquis # HLD [...] criteria (not met): Tests/procedures/consults Plan discussed with [facility] General Neurology Engineered Wood Designer, Dr. Shipley. Please page the [facility] General Neurology service pager at [phone] with any questions. Alfredo Shipley M.B., B.Ch. [...] prior chemotherapy (unclear details done at the [facility]) #5 History of follicular lymphoma #6 Atrial [...] mass PMH: lung cancer (possibly adenocarcinoma, diagnosed 2020, s/p RLL surgery, chemotherapy, uncertain agents), follicular [...] Alert, mild aphasia, O x self, month, [place]; provided year of 2017. No UE drift. [...] changes and speech difficulties and transferred to [facility] Neurology service after CT head [...] LAURIE today Please page Neurosurgery Chief C [phone] with questions Alfredo Shipley M.B., B.Ch. - [...] - 10/05/2021 1:01 PM CDT Occupational Therapy [facility] Inpatient Progress Note SUBJECTIVE Patient's [...] (Comment), Disoriented to time (Patient first stated [place], able to self-correct. Patient reports October, therapist [...] (evaluate for dementing disorder). Therapeutic Functional Activity: [place]heville Test [place] Test is a symbol cancellation test that [...] Pt appropriately lelia clock with numbers and yavapai-apache placement. Noted incorrect hand placement for time, [...] yes Additional Staff Present During Session: Jessica Parikh OT Assessment Crow continues to make good progress during therapy session and remains motivated for intervention. During session this date, pt completed cognitive screening with use of Short Blessed Test. Pt scored a 18/28 indicating cognitive impairment. However, of note, pt does demonstrate word finding difficulties which could have impacted score. Also completed [place] Cancellation test due to pt demonstrating possible visual impairment with running into items on right side previous date. On assessment, pt utilized and organized scanning pattern and no omissions during completion indicating no visual deficit present at this time. Clock drawing completed with appropriate yavapai-apache and number placement, and incorrect time. At [...] OT: Assistance with meal preparation, Assistance with financial analyst, Assistance with transportation, Assistance with housekeeping, Assistance [...] Time (min): 20 min Vanessa Killian O.T., O.T.Shane Murali Bettencourt R.Ph. - 10/05/2021 11:54 AM CDT Pharmacist Progress Note Reason for admission: L frontal mass PMH: lung cancer (possibly adenocarcinoma, diagnosed 2019, s/p RLL surgery, chemotherapy, uncertain agents), follicular lymphoma (dx 2018, unknown chemo; diagnosed when lymphadenopathy found on screen for AAA), COPD, former smoking, atrial fibrillation on Eliquis, HLD OBJECTIVE Home medications: Held: apixaban Changed: none Patient own medications: none Prophylaxis: home famotidine ASSESSMENT / PLAN CV: Hold apixaban (last dose 10/03). Changes to medications anticipated at discharge: TBD Klarissa Alberts.Ph. Lee Bowman M.D. - 10/05/2021 7:30 AM [...] lung cancer (possibly adenocarcinoma, [facility] not [facility]; diagnosed in 2019, s/p [...] oncological evaluation -leukemia/lymphoma phenotyping by flow cytometry -PT/OT/SUPERVISOR TUBING # atrial fibrillation on Eliquis # HLD [...] criteria (not met): Tests/procedures/consults Plan discussed with [facility] General Neurology Engineered Wood Designer, Dr. Shipley. Please page the [facility] General Neurology service pager at [phone] with any questions. AT Pratima Kellogg M.D., [...] page the Neurosurgery Chief C service at [phone] with any questions or concerns. Pratima Kellogg [...] or concerns please contact; Neurosurgery Chief C, [phone]. BILLIN minutes of time were spent in consultation with the patient, greater than 50% of which was dedicated to education, counseling, and coordination of care. AT Eve Zavala M.S.W. - 10/04/2021 2:01 PM CDT SUBJECTIVE Social [...] appropriate. Susan Sprague. 10/04/21 Salty Diaz M.A., CCC-SUPERVISOR TUBING - 10/04/2021 2:00 PM CDT Speech Pathology attempted to see Mr. Orellana for evaluation of cognitive- communication skills x2.He is away from his room on both attempts. Speech Pathology will plan to follow-up for evaluation tomorrow. Salty Diaz M.A., MELISSA-SUPERVISOR TUBING 10/04/2021 Alfredo Shipley M.B., B.Ch. - 10/04/2021 [...] available as this was done at the [facility]), follicular lymphoma (diagnosed in 2018 after adenopathy [...] prior chemotherapy (unclear details done at the [facility]) #5 History of follicular lymphoma #6 Atrial [...] MRI which is currently underway -Neurosurgery consult -[facility] medical oncology about the case and any recommendations given his history of 2 known cancers. -Track down old records from the [facility] about cancer history -Speech pathology consultation -PMR [...] language HISTORY OF PRESENT ILLNESS: Mr. Crow Orlelana is a 76 y.o. male with medical [...] she brought him to an ED in [place]. He typically receives care at the [facility] but they were full. In the ED, vitals were notable for a BP max of 179/68, intermittent aFib (rate around 70s).Labs were unremarkable. CT head show a probably mass in the left frontal lobe with associated vasogenic edema. He was transferred to [facility] for evaluation in the ED. On arrival [...] lung cancer (possibly adenocarcinoma, receives care at [facility] and not available; diagnosed in 2019, s/p RLL surgery, and chemotherapy, uncertain agents), follicular lymphoma (dx 2018, unknown chemo; diagnosed when lymphadenopathy found on screen for AAA), COPD, former smoking, atrial fibrillation on Eliquis, hyperlipidemia SOCIAL HISTORY - Tobacco use: Quit smoking in 2013, does not remember how many years but [...] lung cancer (possibly adenocarcinoma, receives care at [facility] and not available; diagnosed in 2019, s/p [...] aphasia, we will consult our colleagues in PT/OT/SUPERVISOR TUBING. We will obtain further imaging with MRI [...] - leukemia/lymphoma phenotyping by flow cytometry - PT/OT/SUPERVISOR TUBING - hold home Eliquis - hold DVT ppx, can consider initiating pending results of CT chest/abdomen/pelvis and possibility of biopsy - Obtain records from [facility] - Consider consult with Neurosurgery and Oncology versus hematology in the morning pending results of imaging - Continue home atorvastatin, diltiazem, famotidine, vit D, folic acid, magnesium, and multivitamin Diet: regular Tubes/lines: PIV VTE prophylaxis: SCD's Code status: Full Code Disposition: Uncertain Please do not hesitate to page the General Neurology Service pager at [phone] with any questions or concerns. [facility] General Neurology Service Maxillofacial Prosthodontist: Dr. Quinten Geronimo M.D., M.P.H. 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 Leisure Interests: Fishing. Prior Mobility/Functional Transfers Level of King: Independent Home Living Type of Home: House [...] via walker Home Equipment Home Adaptive Equipment: Installation And Repair Technician, Sock aid, Long-handled shoe horn Gait Devices [...] baseline. PT Goal #2: Patient will demonstrate jay-gv-yvbda transfers with the least restrictive gait aid [...] Time (min): 28 min Alysha Hendricks P.T., Rody.P.TLucinda, BRIANA Eve Zavala M.S.W. - 10/05/2021 2:29 PM CDTAssociated Order(s): IP CONSULT TO CARE MANAGEMENT Psychosocial Assessment SUBJECTIVE Assessment Information Referral Source: Provider/Service Referral Reason: Discharge Planning Primary Language: Marshallese Consumer Banker Services Used: No Sexuality/Pronoun: He/Him/His Person(s) present [...] Family / Household: Patient lives in a [facility] Support System: family members and friends/neighbors Caregiver Information: Caregiver Name: Adrianne Orellana Caregiver Relationship: Spouse Spirituality/Yarsani/Cultural Factors: Patient denied being congregational History: Yes, [place] Employment: retired Psychosocial Risk [...] insurance: MEDICARE A AND B Secondary insurance: [employer] Does the patient have any financial concerns? No Advance Directives Legal Decision Maker: Self Advance Directives: N/A Advance Directives Status: Not Activated Baseline Functional Status Baseline Activities of Daily Living Mobility: Independent Dressing: Independent Feeding: Independent Bathing: Independent Grooming: Independent Toileting: Independent Behavior: Appropriate, Cooperative Communication: Talks, Understands Marshallese Shopping: Needs assistance Transportation: Support from family Medication Management: Needs assistance Housekeeping: Needs assistance Meal Prep: Needs assistance Managing Finances: Independent Assistive Devices: None Services/Resources: Home health Agency Name: [facility] Provided: [facility] once every other week Baseline Services/Resources Primary care clinic and provider: ELSEWHERE, PCP Services/Resources: Home health Anticipated Needs Functional Status: Transfer to/from bed, chair, etc., Mobility Assistive Devices: None Agency Name: [facility] Provided: [facility] once every other week Anticipated Modifications to [...] to admission, patient was residing in a [facility] with his . Adrianne stated that [place] and [place] level. Patient [...] on the role of social work at [facility]. Social work completed psychosocial assessment. Social work provided supportive counseling in the following ways; rapport building, active listening, empathetic statements, strength based statements. Plan Patient to discharge with home health care. Home Medical Care - Admitted Since 10/03/2021 Service Provider Selected Services Address Phone Fax Patient Preferred [facility] Services- senior care services once every two [email or web address] [place] [phone] -- Contact: Intake Paid for by the [facility] NURSING: - Complete documentation in the Discharge Navigator including Nursing Report Info and Facility/NextLevel of Care Info - Call report and arrange for the patient???s first visit. - Send required packet of dismissal information with patient, including After Visit Summary and advance directive. PRIMARY SERVICE: - Please provide a non-[facility] home health order for resumption of previous [...] to follow and assist if needs arise. Susan Sprague. 10/05/2021 Salty Diaz MAna Maria., [facility]-SUPERVISOR TUBING - 10/05/2021 12:56 PM CDT Speech Language Pathology Evaluation - Acute Care Session Type: Evaluation Length of session: 36 minutes SUBJECTIVE Referred By: RST General Neurology History: Mr. Orellana is a 76-year-old male who was admitted to [facility] on October 03, 2021 afterpresenting to an outside hospital with 2 week history of increased fatigue, confusion, and speaking in short sentences. Imaging obtained at outside ED revealed a left frontal mass concerning for metastatic disease with associated edema. He was transferred to [facility] for further workup andmanagement. Additional medical history is significant for lung cancer (possibly adenocarcinoma, [place] care at [facility] and not available; diagnosed in 2019, s/p [...] IADLs. He lives with his spouse in [place], [place]. 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 He enjoys fishing and playing cards. General: [...] Primary Mode of Expression: Verbal Primary Language: Marshallese Confrontation Naming: Impaired Confrontation Objects: 61-80% accuracy [...] . When asked to describe the [place] doctor's office picture he states ???we got [...] Aphasia: Moderate Plan Recommendations: Discharge Location: Unknown SUPERVISOR TUBING Ongoing Services: Ongoing formal Speech Pathology services Duration of Treatment: LOS Rehab Potential: Good Nancy Hollis M.D., Ph.D. - 10/04/2021 4:09 PM CDTAssociated Order(s): IP CONSULT TO ONCOLOGY CARE TEAM [place] Oncologist: Fellow responsible: Dr. Hollis Primary staff: Not yet discussed with disease specific staff, pending diagnosis Supervised by: Dr. Romero (consult service staff) Local primary oncologist: [place], [place] SUBJECTIVE HISTORY OF PRESENT ILLNESS Crow [...] not currently have outside records from the [facility]. The following oncology history is APPROXIMATE based [...] lobe mass. He was referred to the [place] ED and admitted to the neurology service [...] lung cancer s/p right lower lobe resection 2019 and [facility]5 Follicular lymphoma, query history of transformation #6 Atrial fibrillation on apixaban, held Mr. Orellana is admitted with a symptomatic left frontal brain mass with significant surrounding vasogenic edema, midline shift, and subfalcine herniation. This could represent metastatic lung cancer,other metastasis, lymphoma, or a primary FIBROUS PLASTERER tumor. Metastatic lung cancer is perhaps most [...] helpful to obtain the outside records. Certainly, FIBROUS PLASTERER relapse of high- grade lymphoma would be more common than FIBROUS PLASTERER involvement with follicular lymphoma. He was previously [...] planned by neurosurgery Low volume disease outside FIBROUS PLASTERER so plan will focus on FIBROUS PLASTERER for now. Jessica Parikh M.S., O.T. 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 Patient reports October, therapist [...] OT: Assistance with meal preparation, Assistance with financial analyst, Assistance with transportation, Assistance with housekeeping, Assistance [...] Orellana is a 76 y.o. male presents [facility] as a transfer from outside for evaluation [...] mass concerning for metastatic disease versus primary FIBROUS PLASTERER neoplasm. 2. Significant associated mass effect from [...] 24h. Contact Neurosurgery Chief C on pager [phone] with questions or concerns. Rebecca Whiting PEric, D.P.T. 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 Leisure Interests: Fishing. Prior Mobility/Functional Transfers Level of King: Independent Home Equipment Home Adaptive Equipment: Installation And Repair Technician, Sock aid, Long-handled shoe horn Gait Devices [...] forward confidently 25 cm (10 inches) 9. Financial Reporting Director Object from Floor from a Standing Position: Able to case picker slipper safely and easily 10. Turning [...] Use a cane at least when outdoors. AM-PAC Inpatient Short Form: Interpretation: Clinicians answer the AM-PAC Inpatient Short Form based on observed patient [...] Achieved PT Goal #2: Patient will demonstrate bzn-ms-gdsia transfers with the least restrictive gait aid [...] [facility] who [facility] ([place] At [facility] ED, CT Head notable for left frontal mass with vasogenic edema. He was transferred to [facility]. At [facility], he was admitted to Neurology [...] MIGUELANGEL. 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 Hobbies include fishing. Has several family members [...] flexor/flexor. GAIT: Normal sitting and standing balance. Cpn-we-oesub is independent. COORDINATION: Difficulty with JHON on right side. Normal hsylrg-rqdc-qmlnkr. Normal xjbj-nt-wocz. Mild apraxia with right upper extremity. SENSATION: [...] living with his . PT, OT, and SUPERVISOR TUBING ordersare in place, with their evaluations pending. [...] plan. Mr. 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 These changes ultimately led to a visit to the [place] [facility] and a head CT (images I have observed him QREADS) which revealed a right frontal mass with significant surrounding edema. He was transferred to [facility] for further evaluation and care. 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 He also has started to speak [...] emergency department. In the emergency department in [place] he underwent head CT A probable mass [...] Dr. Shipley neurology who recommended transfer to [facility] forevaluation the emergency department. On arrival patient [...] 5 seconds without drift. No ataxia on arfwvu-baxc-tyymkw. Plantar responses downgoing bilaterally. Symmetric sensation to [...] #7 Gait instability #8 Atrial fibrillation on Sanjuanalili Orellana is a 76 y.o. male who [...] due to concern that this could represent FIBROUS PLASTERER lymphoma Ok to continue home medications including [...] This an Emergency Neurology consultation. Please page [phone] with any additional questions. This document has been transcribed using [employer] medical dictation software. Proofreading wasperformed in [...] BMI 28.16 kg/m?? Electronically signed by: Cynthia uD R.N. 10/09/21 2:27 PM CDT Leanne Armendariz R.R.T., L.R.T. - 10/07/2021 6:46 PM CDT Patient is a 76 y.o. male admitted on 10/03/2021 Alert Information: Plan of Care: Continue to monitor patient's respiratory status while in ICU. Titrate supplemental oxygen as tolerated. Principal Problem Mass Brain Oxygen Therapy $Delivery Method: Nasal cannula Arterial Line 10/07/21 Right Radial (Active) Placement Date/Time: 10/07/21 (c) 8167 Procedural Pause Completed: Yes Catheter Time Out [...] When medically stable, pt to discharge with [facility] provided by [facility]. Esau Mccord R.N., C.M.S.R.N., O.C.N. - 10/05/2021 5:53 AM CDT Shift [...] his at his bed side. Lanie Lomeli RHudson - 10/04/2021 8:42 AM CDT IVAD Contrast Injection Assessment Details: What type of IVAD? Tunneled, right chest, single lumen If power???What identifiers were used (2 needed or Rad approval)? 3 Bumps on [place] Shape Septum and Xray/Picture Frames Inspector with CT label viewable (Date if applicable [...] Mass Brain Post-op Diagnosis Mass Brain A presser first actively participated and was necessary for one [...] was held in place with the Rodriguez overhead crane truck loader. All pressure points were carefully inspected padded.The preoperative MRI was registered to the patient using the Panoramic Poweralth navigation system viascalp tracing and fiducials. The extent of the mass was marked out at the skin with the stealth system. The hair in the Left frontal [...] using the match-stick semi- cutting drill bit inthe New Screens Lui high-speed drill. After the dura was carefully [...] dressed and patient was removed from the [place] overhead crane truck loader. The case was then turned over to [...] things. This prompted them to go to [facility] for for evaluation and a CT [...] further definitive workup. Final Diagnoses: as of 10/04/21 1452 Mass Brain London Ng M.D. 10/04/21 1453 Linda Noriega M.D., Ph.D. - 10/03/2021 8:02 [...] some confusion. He was brought to the [place] ED and a CT scan showed a brain tumor. He is here for further neurology work up. Olaf Diaz R.N. 10/03/21 5074 documented in this encounter Miscellaneous Notes Hospital Course - Pratima Kellogg M.D., Ph.D. - 10/04/2021 3:49 AM CDT Mr. Crow Orellana is a 76 y.o. male with medical comorbidities significant for lung cancer (possibly adenocarcinoma, receives care at [facility] and not available; diagnosed in 2019, s/p [...] she brought him to an ED in [place]. In the ED, vitals were notable for a BP max of 179/68, intermittent aFib (rate around 70s). Labs were unremarkable. CT head show a probably mass in the left frontal lobe with associated vasogenic edema. He was transferred to [facility] for evaluation in the ED. He was [...] Appointment Radiation Oncology Luiz Nagy M.D. [address] [place] [address] [phone] (Wo rk) documented as of [...] WITH IV CONTRAST COMPARISON: MR brain perfusion FINDINGS: Status post left frontal crani otomy [...] IV CONTR AST COMPARISON: MR brain perfusion FINDINGS: Status post left frontal crani otomy [...] 10/08/2021 DTL Black/ mL/min/BSA 5:44 AM CDT Salvadorean Comment: ----ADDITIONAL INFORMATION---- Estimated GFR calculated using [...] Organization Address City/State/ZIP Code Phon e Number [facility] - 200 [place], [place] [address] [facility] [place] [address] Laboratories-[facility] 200 [facility] (ABNORMAL) CBC with Differential, Blood (10/08/2021 5:03 AM CDT) [facility] Method Time Signature Hemoglobin 10.9 (L) 13.2 [...] Organization Address City/State/ZIP Code Phon e Number [facility] - [address] [place] [address] [facility] [place] [address] [facility] 200 [facility] Surgical Pathology, Frozen Lab (10/07/2021 3:34 PM CDT) Component Value Ref Test Analysis Performed Pathologis t Range Method Time At [facility] 10/12/2021 STMA 8:27 AM CDT Participated in Yvonne Lma 10/12/2021 [facility] the M.DLucinda -Pathology 8:27 AM Interpretation Fellow CDT Report Jonathan Rodriguez M.D. 10/12/2021 [facility] electronically 8:27 AM signed by CDT I verify that I have examined all relevant slides/materials for the specimen(s) and rendered or confirmed the diagnosis. Frozen A. ??Brain, left frontal lesion, biopsy: ??Involved by mercedes h 10/12/2021 [facility] Intraoperative grade carcinoma. 8:27 AM Report CDT [...] for frozen and permanent sections. ??Grossed by Ian Paez, RIC([facility]). B. ??Received fresh labeled left frontal brain lesion #2 is a 4.2 x 3.5 x 2.5 cm portion of brain. ??Data Warehouse Architect tissue submitted for frozen and permanent sections. Grossed by Ian Peaz, RIC([facility]). Block Summary A Left frontal brain lesion [...] an attachment that is no t available. Beebto Jackson M.D., Ph.D. LAB SURG PATH ORDERABLES Performing Organization Address City/State/ZIP Code Phon e Number [facility] - [address] [place], [place] [address] [place] [address] [facility] [address] Glucose, Whole Blood (10/07/2021 2:12 PM CDT) athologist Signature Glucose 127 70 - 140 10/07/2021 2:15 STMA mg/dL PM CDT Specimen Anatomical Collection Method Collection Time Receive d Time (Source) Location / / Volume Laterality Blood (Blood, 10/07/2021 2:12 PM 10/08/19 2:12 Arterial Line) CDT PM CDT Magdaleno Geronimo M.D. LAB BLOOD TROPONIN Performing Organization Address City/State/[facility] Code Phon e Number [facility] - [address] [place], [place] [address] [place] [address] [facility] [address] [facility] Potassium, Blood (10/07/2021 2:12 PM CDT) [...] Organization Address City/State/ZIP Code Phon e Number [facility] - [address] [place], [place] [address] [facility] [address] [facility] [address] [facility] Sodium, B (10/07/2021 2:12 PM CDT) athologist Signature Sodium, B 137 135 - 145 10/07/2021 2:15 STMA mmol/L PM CDT Specimen Anatomical Collection Method Collection Time Receive d Time (Source) Location / / Volume Laterality Blood (Blood, 10/07/2021 2:12 PM 10/08/19 2:12 Arterial Line) CDT PM CDT Magdaleno Geronimo M.D. LAB BLOOD NON ADD-ON Performing Organization Address City/State/ZIP Code Phon e Number [facility] - [address] [place], [place] [address] [facility] [address] [facility] [address] [facility] Calcium, Ionized (10/07/2021 2:12 PM CDT) athologist Signature Calcium, 4.67 4.65 - 5.30 10/07/2021 STMA Ionized, B mg/dL 2:15 PM CDT Specimen Anatomical Collection Method Collection Time Receive d Time (Source) Location / / Volume Laterality Blood (Blood, 10/07/2021 2:12 PM 10/08/19 2:12 Arterial Line) CDT PM CDT Magdaleno Geronimo M.D. LAB BLOOD NON ADD-ON Performing Organization Address City/State/ZIP Code Phon e Number [facility] - [address] [place] [address] [place] [address] [facility] 200 [facility] (ABNORMAL) Blood Gas with Coox, Arterial (10/07/2021 [...] LAB BLOOD NON ADD-ON Performing Organization Address City/[facility] Code Phon e Number [facility] - [address] [place] [phone] [facility] [place] [place] [address] Laboratories-[address] ABORh Problem, RBC (10/07/2021 2:10 PM CDT) P athologist Signature ABORh A Pos Not applicable 10/07/2021 DTL 3:20 PM CDT Specimen Anatomical Collection Method Collection Time Receive d Time (Source) Location / / Volume Laterality Blood 10/07/2021 2:10 PM 2 2:14 CDT PM CDT Resulting Agency Comment Drawn in OR by [id number] Marybel Gillespie APRN, CRNA LAB BLOOD BANK TEST ORDERABL ES Performing Organization Address [facility] Phon e Number [facility] - [address] [place], [place] [id number] [place] [address] Type and Screen (with reflex Antibody [...] Laterality Blood (Blood, 10/07/2021 2:10 PM 10/08/19 22 2:14 Arterial Line) CDT PM CDT Resulting Agency Comment Drawn in OR by [id number] Magdaleno Geronimo M.D. LAB BLOOD BANK TEST ORDERABL ES Performing Organization Address City/[facility] Phon e Number [facility] - [address] [place] [phone] [place] [address] [facility] [address] (ABNORMAL) Apixaban, Anti-Xa, P (10/05/2021 12:32 PM CDT) P athologist Signature Apixaban, 25 (H) <10 ng/mL 10/05/2021 DTL Anti-Xa, P 2:11 PM CDT Comment: ----ADDITIONAL INFORMATION---- This test has been modified from the man ufacturer's instructions. Its performance characteri stics were determined by [facility] in a manner co nsistent with CLIA [...] BLOOD NON ADD-O N Performing Organization Address [facility] Phon e Number [facility] - [address] [place] [phone] [facility] [place] [address] Laboratories-[address] Prothrombin Time (PT) (10/05/2021 12:30 PM CDT) athologist Signature Prothrombin 11.9 9.4 - 12.5 [...] M.D. LAB BLOOD ADD-ON Performing Organization Address [facility] Phon e Number [address] [place] [address] Laboratories-[address] (ABNORMAL) Basic Metabolic Panel (10/05/2021 6:49 [...] 10/05/2021 DTL Black/ mL/min/BSA 8:06 AM CDT Salvadorean Comment: ----ADDITIONAL INFORMATION---- Estimated GFR calculated using [...] Organization Address City/State/ZIP Code Phon e Number [facility] - [address] [place] [address] [facility] [place] [address] [facility] [address] [facility] (ABNORMAL) CBC with Differential, Blood (10/05/2021 6:49 AM CDT) [facility] gist Method Time Signature Hemoglobin 12.2 (L) [...] Laterality Blood (Blood, 10/05/2021 6:49 AM 10/06/19 22 7:27 Venous) CDT AM CDT Lee Bowman M.D. LAB BLOOD ADD-ON Performing Organization Address City/State/ZIP Code Phon e Number [facility] - [address] [place], [place] [address] [facility] [place] [address] [facility] 200 [facility] LD (Lactate Dehydrogenase) (10/05/2021 6:49 AM CDT) [facility] LD 157 122 - 222 10/05/2021 DTL U/L 8:17 AM CDT Specimen Anatomical Collection Method Collection Time Receive d Time (Source) Location / / Volume Laterality Blood (Blood, 10/05/2021 6:49 AM 10/06/19 22 7:52 Venous) CDT AM CDT Lee Bowman M.D. LAB BLOOD NON ADD-ON Performing Organization Address City/State/ZIP Code Phon e Number [facility] - [address] [place], [place] [address] [facility] [place] [address] [facility] [address] MR Brain Perfusion without [...] mass concerning for metastatic disease versus primary FIBROUS PLASTERER ne oplasm. 2. Significant associated mass effect [...] frontal lobe mass with surrounding vasogenic edema ([id number]); significant perilesional edema involving much of the [...] frontal lobe mass with surrounding vasogenic edema ([id number]); significant perilesional edema involving much of the [...] mass concerning for metastatic disease versus primary FIBROUS PLASTERER ne oplasm. 2. Significant associated mass effect fr om 1 with diffuse left frontal vasogenic edema and sulcal effacement, rightward midline shift, and subfalcine herniation. Shawna Geronimo M.D., M.P.H. [facility] MRI PROCEDURES CT Abdomen Pelvis with IV [...] received within validated farrukh delines. Microscopic A Jjntma-Zxhtso-mnoierz slid e prepared from the flow cytometry specimen is 10/04/2021 DTL Description examined. ??No morphologic f eatures of acute leukemia or lymphoma are 2:04 PM identified. CDT Comment: ----ADDITIONAL INFORMATION---- This test was developed using an analyte specific reagent. Its performance characteristics were determined by [facility] in a manner consistent with CLIA requirements. [...] Organization Address City/State/ZIP Code Phon e Number [facility] - [address] [place], [place] [address] [facility] [place] [address] [facility] [address] (ABNORMAL) CBC with Differential, Blood (10/04/2021 7:54 AM CDT) [facility] Method Time Signature Hemoglobin 12.7 (L) 13.2 [...] Organization Address City/State/ZIP Code Phon e Number [facility] - [address] [place], [place] [address] [facility] [place] [address] [facility] [address] [facility] (ABNORMAL) Basic Metabolic Panel (10/04/2021 7:54 AM [...] 10/04/2021 DTL Black/ mL/min/BSA 8:54 AM CDT Salvadorean Comment: ----ADDITIONAL INFORMATION---- Estimated GFR calculated using [...] Organization Address City/State/ZIP Code Phon e Number [facility] - [address] [place], [place] [address] [facility] [place] [place] [address] [facility] [address] [facility] SARS Coronavirus 2, RNA, Rapid POC, V Asymptomatic (10/04/2021 1:44 AM CDT) [facility] Method Time Signature SARS Undetected Undetected 10/04/2021 DTLR Coronavirus-2 2:08 AM CDT , RNA, Rapid POC, V Comment: Negative for SARS-CoV-2. The [employer] COVID-19 test is a molecular radha t for SARS-CoV-2, the virus that causes COVID- 19. A Negative result means that the [employer] COV ID-19 test did not detect SARS-CoV-2 virus in your sample. [employer] COVID-19 test uses the [employer] nitoring System. This test has received Emergency Use Authorization (EUA) by the U.S. Food and Drug Administration (FDA) and is used per man ufacturer instructions. Performance characteristic s were verified by [facility] in a manner consistent with CLIA requirements. Fact sheets for this Emerg ency Use Authorization (EUA) can be found at the following links: Providers: https://[email or web address]/prov iders.pdf Patients: [email or web address]://[employer]Akella/documentation/jaziel ents.pdf SARS Coronavirus 2, Source Nasopharynx DEFAULT 10/04/2021 2:08 AM CDT DTLR Specimen Anatomical Collection Method Collection Time Receive d Time (Source) Location / / Volume Laterality Varies 10/04/2021 1:44 AM 2 1:44 (Nasopharynx) CDT AM CDT Shawna Geronimo M.D., M.P.H. LAB MICROBIOLOGY - GENERA L ORDERABLES Performing Organization Address City/State/ZIP Code Phon e Number PERFORMING LABS, [place] [address] INTERFACE Ref Interface [address] [facility] DTLR Performing Labs, [place] [address] Interface [address] [facility] ECG 12 Lead (10/03/2021 8:17 PM CDT) P athologist Signature Ventricular Rate 80 BPM MUSE ECG/Min [place] Interval 138 ms MUSE QRSD Interval 86 ms MUSE QT Interval 390 ms MUSE QTC Interval 449 ms MUSE P [place] 57 degrees MUSE R [place] 30 degrees MUSE T Wave [place] 56 degrees MUSE Specimen Anatomical Collection Method [...] Primary Decline Functional Status [R53.81 (ICD-1 0-CM)] Mass Brain documented in this encounter Admitting Diagnoses Diagnosis Mass Brain documented in this encounter Administered Medications Inactive Administered Medications - up to 3 most recent administrations Medication Order MAR Action Action Date Dose Rate Site acetaminophen tablet 1,000 mg Given 10/09/2021 12:52 PM CDT 1,00 0 mg (TYLENOL) 1,000 mg, oral, Every 6 hours, First [...] mg of calcium, oral, Every 2 hour [place] N, heartburn, indigestion, Starting on Sun10/04/21 at 0135, Doses listed are in mg of elemental calcium. Take with food. 500 mg calcium carbonate contains 200 mg of elemental calc ium. cellulose, oxidized 2 x 14 pad Given 10/07/2021 4:33 PM CDT 1 each Other (SURGICEL) As needed, Starting on Sun10/07/21 at 1633, Intra-Op cholecalciferol (vitamin D3) tablet 25 m cg [...] 100 mL bag then disca rd. dexAMETHasone tablet 1 mg (DECADRON) 1 mg, [...] needed. dexAMETHasone tablet 4 mg (DECADRON) Given 10/09/2021 [...] 7 in order to provide immediate relief. gelatin sponge,absorb-porcine 50 sponge Given 10/07/2021 4:34 PM CDT 1 each Other (GELFOAM) As needed, Starting on Sun10/07/21 at 1634, Intra-Op hydrALAZINE tablet 25 mg (APRESOLINE) 25 mg, oral, Every 6 hours PRN, Second-l ine (after labetalol): SBP >160 mmHg; hold for HR >100 BPM., Starting on Sun10/07/21 at 1902 levETIRAcetam tablet 500 mg (KEPPRA) Given 10/09/2021 9:12 AM CDT 500 mg 500 mg, oral, 2 times daily, First dose on Sun10/08/21 at 0900, For 14 doses Given 10/08/2021 10:02 PM CDT 500 mg Given 10/08/2021 8:01 AM CDT 500 mg lidocaine-EPINEPHrine 1 %-1:100,000 injection Given 2:19 PM CDT 10 mL (XYLOCAINE W/EPI) As needed, Starting on Sun10/07/21 at 1419, Intra-Op magnesium hydroxide suspension 30 mL (IN LK OF MAGNESIA) 30 mL, oral, Daily PRN, constipation, St arting on Sun10/07/21 at 1902, Give if no bowel movement by post-operative day 3. magnesium oxide tablet 400 mg (MAG-OX) Given 10/09/2021 9:12 AM CDT 400 mg 400 mg, oral, Daily, First dose on Sun10/04/21 at 0900 Given 10/08/2021 8:01 AM CDT 400 mg Given 10/07/2021 9:41 AM CDT 400 mg jedvigopvgue-ucpm-KV-Ca-minerals 400 mcg Given 10/09/2021 9:12 A M CDT 1 tablet (folic acid) tablet 1 tablet (THERAPEUTI C-M) 1 tablet, oral, Daily, First dose on Sun10/04/21 at 0900 Given 10/08/2021 8:00 AM CDT 1 tablet Given 10/07/2021 9:41 AM CDT 1 tablet NaCl 0.9% infusion 10-250 mL/hr, intravenous, As [...] 8:11 PM CDT 1 tablet sodium chloride 0.9 % injection 10 mL [...] Given 10/08/2021 8:02 AM CDT 3 mL vancomycin powder 1 g Given 10/07/2021 4:55 PM CDT 1 g Other 1 g, topical, Once in surgery, OR use only, Starting on Sun10/07/21 at 1227, For 1 dose, Intra-Op, Do not reconstitute documented in this encounter Active and Recently Administered Medications Times are shown in CDT. Scheduled Medication Order 10/07/2021 10/08/2021 10/09/2021 acetaminophen tablet 1,000 mg (TYLENOL) (CANCELED) 083 1 (Given - Provider: Cheko Ham RLucindaN.)1207 (Not Given - Provider: Cheko Ham RLucindaN. - Reason: Patient/family refused)1224 (MAY Hold - [...] (TYLENOL) 2009 (Given - Provider: Eduard Shelley R.N.) 0021 (Given - Provider: Eduard Shelley R.N.)0620 (Not Given - Provider: Eduard Shelley R.N. - Reason: Patient/family refused)1350 (Not Given - Provider: Rolando Amanda RLucindaN. - Reason: Patient/family refused) 0015 (Not Given - Provider: Marychuy Alarcon R.N. - Reason: Patient/family refused)0632 (Not Given - Provider: Marychyu Alarcon, R.N. - Reason: Patient/family refused)1252 (Given - Provider: Cynthia Du RLucindaN.) 1,000 mg, oral, Every 6 hours, First [...] available)1833 (MAY Unhold - Provider: Transfer Provider, Automatic)2009 (Given - Provider: Eduard Shelley R.N.) 2201 (Given - Provider: Marychuy Alarcon R.N.) 10 mg, oral, Daily at bedtime, First dose on Sun10/04/21 at 2100 ceFAZolin in dextrose (iso-os) IVPB 2 g (ANCEF) (COMPLETED) 0021 (New Bag - Provider: Eduard Shelley RHudson)1011 (New Bag - Provider: Rolando Amanda R.N.)1714 (New Bag - Provider: Rolando Amanda R.N.) [...] 1430 (Given - Provider: Marybel Gillespie APRN, S3B MULTI SENSOR OPERATOR)1729 (Given - Provider: Jazmín Burns APRN, S3B MULTI SENSOR OPERATOR) 2,000 mg (rounded from 2,077.5 mg = [...] D3) tablet/capsule dexAMETHasone injection 4 mg (DECADRON) (COMPLETED)( nked Group 1) 2010 (Given - Provider: Eduard R Groski, R.N.) 0752 (Given - Provider: Rolando degroot RLucindaNLucinda)1141 (Given - Provider: Rolando Amanda R.N.) 4 mg, intravenous, 4 times daily, First [...] 0941 ( Given - Provider: Cheko Ham RLucindaNLucinda)1224 (MAY Hold - Provider: Transfer Provider, Automatic - Reason: Patient not available)1833 (MAR Unhold - Provider: Transfer Provider, Automatic) 4 mg, oral, 2 times daily, First dose on Sun10/05/21 at 2100 dexAMETHasone tablet 4 mg (DECADRON)(Linked Group 1) 1714 (Given - Provider: Rolando Amanda R.N.)2202 (Given - Provider: Marychuy Alarcon RLucindaN.) 0912 (Given - Provider: Cynthia Du RLucindaNLucinda)1252 (Given - Provider: Ida AlbertsNLucinda) 4 mg, oral, 4 times daily, First dose on Sun10/08/21 at 1700, For 5 doses, Contact pharmacist if IV needed. dilTIAZem 24 hr capsule 180 mg (TIAZAC/TAZTIA XT) 0941 (Given - Provider: Cheko Ham RLucindaNLucinda)1224 (MAR Hold - Provider: Transfer Provider, Automatic - Reason: Patient not available)1833 (MAR Unhold - Provider: Transfer Provider, Automatic) 0801 (Given - Provider: Rolando Amanda R.N.) 0914 (Given - Provider: Ida AlbertsNLucinda) 180 mg, oral, Daily, First dose on Sun at 0900, Do NOT crush or chew. Capsule may be opened and the contents taken without crushing or chewing. famotidine tablet 20 mg (PEPCID) 0942 (Given - Provide r: Cheko Ham R.N.)1224 (MAR Hold - Provider: Transfer Provider, Automatic - Reason: Patient not available)1833 ([facility] Unhold - Provider: Transfer Provider, Automatic)2009 (Given - Provider: Eduard Shelley R.N.) 08 (Given - Provider: Rolando Amanda R.N.)220 (Given - Provider: Marychuy Alarcon R.N.) 0912 (Given - Provider: Cynthia Du RLucindaNLucinda) 20 mg, oral, 2 times daily, First dose o n Sun10/04/21 at 0900, Drug Monitoring Program: Pharmacist to adjust medication dosing based on indication and drug clearance factors. folic acid tablet 1 mg (CANCELED) 0941 (Given - Provid er: Cheko Ham R.N.)1224 (MAY Hold - Provider: Transfer Provider, Automatic - Reason: Patient not available)183 ([facility] Unhold - Provider: Transfer Provider, Automatic) 1 mg, oral, Daily, First dose on Sun10/04/21 at 0900 levETIRAcetam in NaCl (iso-os) IVPB 1,000 mg (KEPPRA) (COMPLETED) 1419 (Given - Provider: Marybel Gillespie APRN, S3B MULTI SENSOR OPERATOR)1759 (Anesthesia Volume Adjustment - Provider: Jazmín Burns APRN, S3B MULTI SENSOR OPERATOR) 1,000 mg, intravenous, at 400 mL/hr, Adm inister over 15 Minutes, Once, On Sun10/07/21 at 1230, For 1 dose, Intra-Op levETIRAcetam tablet 500 mg (KEPPRA) 080 1 (Given - Provider: Rolando Amanda R.N.)220 (Given - Provider: Marychuy Alarcon R.N.) 0912 (Given - Provider: Ida AlbertsNLucinda) 500 mg, oral, 2 times daily, First dose on Sun10/08/21 at 0900, For 14 doses magnesium oxide tablet 400 mg (MAG-OX) 0941 (Given - P rovider: Cheko Ham RLucindaNLucinda)1224 (MAY Hold - Provider: Transfer Provider, Automatic - Reason: Patient not available)1833 ([facility] Unhold - Provider: Transfer Provider, Automatic) 0801 (Given - Provider: Rolando Amanda R.N.) 0912 (Given - Provider: Ida AlbertsNLucinda) 400 mg, oral, Daily, First dose on Sun10/04/21 at 0900 fsselwvoxoro-seso-FK-Ca-minerals 400 mcg (folic acid) tablet 1 tablet (THERAPEUTIC-M) 0941 (Given - Provider: Cheko nichoals RLucindaNLucinda)1224 (MAY Hold - Provider: Transfer Provider, Automatic - Reason: Patient not available)1833 ([facility] Unhold - Provider: Transfer Provider, Automatic) 0800 (Given - Provider: Rolando Amanda R.N.) 0912 (Given - Provider: Cynthia Du R.N.) 1 tablet, oral, Daily, First dose on Sun10/04/21 at 0900 NaCl 0.9 % bolus 500 mL (COMPLETED) 0753 (New Bag - Provider: Ida eTeNLucinda) 500 mL, intravenous, at 500 mL/hr, Admin [...] (SENOKOT-S) 0941 (Given - Provider: Cheko Ham R.N.)1224 (MAY Hold - Provider: Transfer Provider, Automatic - Reason: Patient not available)1833 (MAY Unhold - Provider: Transfer Provider, Automatic)2010 [...] 0942 (Given - Pro vider: Cheko Ham R.N.)1224 (MAY Hold - Provider: Transfer Provider, Automatic - Reason: Patient not available)183 (MAY Unhold - Provider: Transfer Provider, Automatic)2014 (Given - Provider: Eduard Shelley RHudson) 08 (Given - Provider: Rolando Amanda RLucindaNLucinda)2202 (Given - Provider: Marychuy Alarcon R.N.) 0921 [...] R.N.)0200 (Rate/Dose Verify - Provider: Eduard Shelley R.N.)0400 (Rate/Dose Verify - Provider: Eduard Shelley R.N.)0600 (Rate/Dose Verify - Provider: Eduard Shelley RLucindaNLucinda) 80 mL/hr, intravenous, Continuous, Start ing on Sun10/07/21 at 1915, For 12 hours 0745 (Stopped - Provider: Rolando mosqueda RLucindaNLucinda) phenylephrine 80 mcg/mL in NaCl 0.9% 250 mL infusion ( CANCELED) 1322 (New Bag - Provider: Marybel Gillespie APRN, S3B MULTI SENSOR OPERATOR)1328 (Rate/Dose Change - Provider: Marybel Gillespie APRN, S3B MULTI SENSOR OPERATOR)1350 (Rate/Dose Change - Provider: Madelyn Cantu APRN, S3B MULTI SENSOR OPERATOR)1413 (Rate/Dose Change - Provider: Marybel Gillespie APRN, S3B MULTI SENSOR OPERATOR) 0-1 mcg/kg/min ? 83.1 kg Dosing weight (0-62.325 mL/hr, rounded to 0-62.33 mL/hr), intravenous, Continuous, Starting on Sun10/07/21 at 1245, Intra-Op, 20 mg in 250 mL, Patient Type: Standard, initiate 1419 (Rate/Dose Change - Provider: Marybel Gillespie APRN, S3B MULTI SENSOR OPERATOR)1445 (Rate/Dose Change - Provider: Marybel Gillespie APRN, S3B MULTI SENSOR OPERATOR)1502 (Rate/Dose Change - Provider: Marybel Gillespie APRN, S3B MULTI SENSOR OPERATOR)1506 (Rate/Dose Change - Provider: Marybel Gillespie APRN, S3B MULTI SENSOR OPERATOR) at: Other, Rate: Per Provider, Titrate a t: Other, Titrate: Per Provider, Goal: Other, Goal: Per Provider 1510 (Rate/Dose Change - Provider: Marybel Gillespie APRN, S3B MULTI SENSOR OPERATOR)1515 (Rate/Dose Change - Provider: Marybel Gillespie APRN, S3B MULTI SENSOR OPERATOR)1524 (Rate/Dose Change - Provider: Marybel Gillespie APRN, S3B MULTI SENSOR OPERATOR)1557 (Rate/Dose Change - Provider: Marybel Gillespie APRN, S3B MULTI SENSOR OPERATOR) 1701 (Rate/Dose Change - Pro vider: Marybel Gillespie APRN, S3B MULTI SENSOR OPERATOR)1718 (Rate/Dose Change - Provider: Jazmín Burns APRN, S3B MULTI SENSOR OPERATOR)1719 (Rate/Dose Change - Provider: Jazmín Burns APRN, S3B MULTI SENSOR OPERATOR)1722 (Stopped - Provider: Jazmín Burns APRN, KAMLESH) PRN Medication Order 10/07/2021 10/08/2021 10/09/2021 benzocaine-menthoL 15-3.6 mg per lozenge 1 lozenge (CEPACOL) 1 lozenge, oral, As needed, sore throat, throat irritation, Starting on Sun10/07/21 at 1902 bisacodyL suppository 10 mg (DULCOLAX) 1224 (MAR Hold - Provider: Transfer Provider, Automatic - Reason: Patient not available)1833 ([facility] Unhold - Provider: Transfer Provider, Automatic) 10 mg, rectal, Daily PRN, constipation, Starting on Sun10/04/21 at 0135, Ordered sequence of administration: polyethylene glycol, then bisacodyl until BM achieved. calcium carbonate chewable tablet 400 mg of calcium (T UMS) 1224 ([facility] Hold - Provider: Transfer Provider, Automatic - Reason: Patient not available)1833 ([facility] Unhold - Provider: Transfer Provider, Automatic) 400 mg of calcium, oral, Every 2 hour [place] N, heartburn, indigestion, Starting on Sun10/04/21 at [...] (COMPLETED) 1 322 (Given - Provider: Marybel Gillespie APRN, S3B MULTI SENSOR OPERATOR) 10 mg, intravenous, Once in surgery, OR [...] (Given - Provider: [place](R)(MR) - Comment: [id number]) 0.01-30 mL, intravenous, Once in imaging , [...] Units (COMPLETED) 1318 (Given - Provider: Francy Pagan RHudson) 500 Units, intra-catheter, During hospit alization, line [...] chloride 0.9 % injection 10 mL 1224 ([facility] Hold - Provider: Transfer Provider, Automatic - Reason: Patient not available)1833 ([facility] Unhold - Provider: Transfer Provider, Automatic) 10 [...] chloride 0.9 % injection 3 mL 1224 ([facility] Hold - Provider: Transfer Provider, Automatic - Reason: Patient not available)1833 ([facility] Unhold - Provider: Transfer Provider, Automatic) 3 mL, intravenous, As needed, line care, Starting on Sun10/04/21 at 0134, Prior to and following infusion and between multiple consecutive infusions: sodium chloride 0.9 % injection vancomycin powder 1 g (COMPLETED) 1654 (Given - Provid er: Manny Cordova M.D. [...] documented as of this encounter Care Teams Panel Flow Machine Operator Relationship Specialty Start Date End Date Elsewhere, Pcp PCP - General Internal Medicine 10/03/21 documented as of this encounter
--- OUTSIDE RECORDS SUMMARY | 2021-11-18 09:36 | XMS_ITS | Encounter Summary ---
:1945 Author Organization [facility] Address [address] [place] [address] Care Team Providers Name Role Phone Elsewhere, Pcp Primary Care Provider Unavailable Encounter Details Date Type Department Care Team Description 10/07/2021 Anesthesia Event RST ROMB MAIN OR Magdaleno Geronimo M.D. [address] [place] [phone] [place] [address] Marybel Gillespie, SOLE LEVELER, NURSING CARE ATTENDANT [address] [place] [phone] [place] [phone] Anesthesia Record Procedure Summary Procedure Name Responsible Anesthesia Start Anesthesia Stop Anesthesiologist Time Time LEFT frontal Magdaleno Geronimo M.D. 10/07/21 1256 10/07/21 1 759 craniotomy for tumor resection, IRENA lawrence. (Left: Head) Events Date Time Event Comment 10/07/2021 1256 An Start Machine/Equipmen t Checked Infection Precautions Foll owed Procedure/Site Verified NPO Sta tus Verified Supine Standard ASA Mon itors Applied 1305 An Induction 1313 An Intubation 1319 Turnover to Proceduralist 1356 Urbano On 1410 Lab Drawn 1437 Proc Start 1731 Proc Fin 1734 Urbano Off 1739 Turnover to ANE Staff 1747 Airway Removal Criteria Met 1747 Extubation/Airway Removed 1759 An End I completed my h andoff to the receiving staff during [facility] we 1. Identified the patient 2. Ident ified the responsible provider 3. Revi ewed the pertinent medical history 4. Discussed the surgical course 5. Review ed intra-op anesthesia management and i ssues during anesthesia 6. Set expectati ons for post-procedure period 7. Allowe d opportunity for questions and ac knowledgement of understanding. Name Total ceFAZolin injection 2,000 mg (ANCEF) 4 g dexAMETHasone injection 10 mg (DECADRON) 10 mg levETIRAcetam in NaCl (iso-os) IVPB 1,000 mg (KEPPRA) 1,000 mg phenylephrine 80 mcg/mL in NaCl 0.9% 250 mL infusion 5 .36 mg fentanyl injection 50 mcg/mL 150 mcg lidocaine 2% (mg) injection 60 mg propofol 10 mg/mL 300 mg propofol 10 mg/mL infusion 2,119.19 mg vecuronium 10 mg injection 20 mg phenylephrine 100 mcg/mL injection 175 mcg ePHEDrine PF 5 mg/mL syringe injection 10 mg ondansetron 4 mg/2 mL injection 4 mg sugammadex 100 mg/mL injection 200 mg mannitol 25% injection 42.5 g labetalol 5 mg/mL injection 40 mg Lactated Ringers Free Drip 1,600 mL lactated ringers free drip 600 mL Agents No agents on file. Blood No blood administrations on file. Lines, Drains, and Airways Type Details Placement Removal Implanted Port Single 10/03/21; 1342; 10/03/21 1342 by Lumen Permanent (tunneled, Chito, Steve P, implanted); Yes; Yes; R.N. Yes; Yes; Chlorhexidine (Preferred), Povidone iodine; Yes; Gloves, Mask (Clinician), Large drape; N/A; Open-ended; Right; Chest; Power injectable; Connection locked, Taped; [id number] Wound 10/07/21; 1535; N; 10/07/21 1535 by Incision; Face; Left, Ralph Nagel, Miri R.N. ETT Placement Date: 10/07/21 1313 by 10/07/21 1747 b y 10/07/21; Placement Marybel Gillespie Thisius, Le ann K, Time: 1313 (created via SOLE LEVELER, KAMLESH SOLE LEVELER, CR NA procedure documentation); Mask Ventilation: Oral/Nasal airway needed; Type: Standard ETT; Single Lumen Tube Size: 7.5 mm; Cuffed: Yes; Location: Oral; Grade View: Grade 2A; Insertion Attempts: 1; Placement Verification: Bilateral breath sounds, Positive ETCO2, Symmetrical chest wall movement; Airway Comment: Very small mouth opening made it difficult to obtain an adequate view of larynx with a MAC 3 blade. Easy GlideScope intubation; Removal Date: 10/07/21; Removal Time: 174 Arterial Line Placement Date: 10/07/21 1315 by 10/08/[address] 10/07/21; Placemnt Time: Magdaleno Geronimo Denis, Edward M, 1315 (created via Reina Moore procedure documentation); Size: 20 G; Orientation: Right; Location: Radial; Site Prep: Chlorhexidine (Preferred); Technique: Anatomical landmarks; Insertion Attempts: 1; Securement: Securement dressing, Securement device; Removal Date: 10/08/21; Removal Time: 0745; Removal Reason: Per order Peripheral IV Placement Date: 10/07/21 1317 by 10/09/21 1324 b y 10/07/21; Placement Marybel Gillespie [place], Sherie Time: 1317; Catheter KAMLESH CALLOWAY RLucindaNLucinda Size: 18 G; Orientation: Left; Location: Wrist; Removal Date: 10/09/21; Removal Time: 1324; Removal Reason: Completion of therapy Indwelling Urinary Placement Date: 10/07/21 1345 by 10/07/21 174 9 by Catheter 10/07/21; Placement Susana Baez Kopp, Ale xander J, Time: 1345; Inserted by: MLucindaSHudson, RHudson RHudson Baez; Type: Non-latex; Size: 16 Fr.; Balloon Size: 5 mL (inflated with 10 ml); Urine Returned: Yes; Removal Date: 10/07/21; Removal Time: 1749; Removal Reason: Per order documented in this encounter Social History Tobacco Use Types Packs/Day Years Used Date Smoking Tobacco: Former Smokeless Tobacco: Never Alcohol Use Standard Drinks/Week Comments Defer 0 (1 standard drink = 0.6 oz pure alcoho l) Sex Assigned at Date Recorded Not on file documented as of this encounter OR Notes Anesthesia Postprocedure Evaluation - Magdaleno Geronimo M.D. - 10/09/2021 6:31 PM CDT Patient: Crow Orellana Procedure Summary Date: 10/07/21 Room / Location: [place] [address] / [facility] in [place], [place] Anesthesia Start: 1256 Anesthesia Stop: 1759 Procedure: LEFT frontal craniotomy for tumor resection, IRENA lawrence. 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 Responsible Provider: Magdaleno Geronimo M.D. Anesthesia Type: general ASA Status: 3 Anesthesia Type: general Last vitals Vitals Value Taken Time BP 119/57 10/07/21 1815 Temp 36.4 ??C 10/07/21 1755 Pulse 67 10/07/21 1822 Resp 15 10/07/21 1822 SpO2 99 % 10/07/21 1822 Vitals shown include unvalidated device data. Please reference Vitals flowsheet for most recent vital signs. Anesthesia Post Evaluation Patient Disposition: general care unit Cardiovascular status: hemodynamics (HR & BP) acceptable Respiratory status: patent airway with spontaneous effort Temperature: normothermic Oxygen requirements: nasal cannula Level of consciousness: awake Pain score: pain adequately controlled and/or at baseline Post Op nausea/vomiting: none Hydration status: euvolemic Anesthesia Procedure Notes - Marybel Gillespie APRN, CRNA - 10/07/2021 1:32 PM CDTAssociated Order(s): Airway Airway Date/Time: 10/07/2021 1:13 PM Performed by: Marybel Gillespie APRN, CRNA Authorized by: Magdaleno Geronimo M.D. Patient location during procedure: OR / Procedure Area PROCEDURE DETAILS: Mask difficulty assessment: oral/nasal airway needed Final airway type: video laryngoscope Laryngeal Manipulation: no Final best view of glottic structures - Cormack/Lehane Score: grade 2A ETT location: oral VL device: glide scope [place] scope blade size: 4 Adult tube size: 7.5 Adult ETT distance at teeth/gum: 22 Oral tube type: standard ETT Cuffed: yes Number of attempt to successful placement: 1 Airway confirmation: bilateral breath sounds, positive ETCO2 and bilateral chest rise Other previous techniques attempted: direct laryngoscopy; intubation Number of other approaches attempted: 1 Previous direct laryngoscopy: best view of glottic structures: grade 2B Additional Comments Very small mouth opening made it difficult to obtain an adequate view of larynx with a MAC 3 blade. Easy GlideScope intubation PRE PROCEDURE DETAILS: Pre evaluation for airway management: procedure Urgency: elective Preop assessment of probable difficulty: no difficulty anticipated Preoxygenation: bag valve mask SEDATION / ANESTHESIA Anesthesia method: anesthesia POST PROCEDURE DETAILS: Procedure outcome: successful Airway event: no complications Anesthesia Procedure Notes - Magdaleno Geronimo M.D. - 10/07/2021 1:24 PM CDT Associated Order(s): Invasive Catheter Invasive Catheter Date/Time: 10/07/2021 1:15 PM Performed by: Magdaleno Geronimo M.D. Authorized by: Magdaleno Geronimo M.D. Location: OR PROCEDURE DETAILS: Line type: arterial Laterality: right Location: radial Location details: new site Age group: adult Catheter diameter: 20 Ga Technique: palpation Monitored: yes Number of attempts: 1 UNIVERSAL PROTOCOL All relevant documentation and testing were reviewed and available. All required blood products, implants, devices and or special equipment were made available as applicable. Pre-procedure verificationwas conducted and the correct site was marked if required. A fire risk assessment was done as applicable. The procedural time-out to verify correct patient, correct side/site, and procedure was conducted prior to performing the procedure and confirmed in a procedural pause. PRE-PROCEDURE DETAILS: Appropriate hand hygiene, gown, cap, mask, protective eyewear, sterile gloves, skin preparation, sterile drape, and strict aseptic technique were utilized as applicable for the procedure.: yes Skin preparation: chlorhexidine SEDATION / ANESTHESIA Anesthesia method: anesthesia POST-PROCEDURE DETAILS: Procedure completed successfully: yes Line secured: secured with sutureless device Chlorhexidine disc around insertion site and under catheter with slight turn: yes Complications - arterial: none Anesthesia Preprocedure Evaluation - Magdaleno Geronimo M.D. - 10/07/2021 12:34 PM CDT Preprocedure Anesthesia & H&P Assessment Procedure Summary Date/Time: 10/07/21 1128 Procedure: LEFT frontal craniotomy for tumor resection, IRENA lawrence. 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 Location: [address] / [facility] in [place], [place] Providers: Bebeto Jackson M.D., Ph.D. Pertinent components of the patient's history including current problem list, medical history, surgical history, family history, social history, medications and allergies were reviewed. Present illnessand pre-op diagnosis were confirmed. The planned surgery / procedure was verified with the patient /legal guardian. The patient's general health condition remains unchanged RELEVANT COMORBID CONDITIONS CV (+) Atrial Fibrillation (HCC) GENETICS (+) Hyperlipidemia ONC (+) Follicular Lymphoma Unspecified Unspecified Site (HCC) (+) Lymphoma (HCC) OBJECTIVE PHYSICAL EXAMINATION Airway (HEENT) Mallampati: II TM Distance: >3 FB Neck ROM: Full Mouth Opening: >3 cm Cardiovascular Rhythm: Regular Cardiovascular Assessment: cardiovascular normal Functional Capacity: >4 METS Pulmonary Pulmonary Assessment: Non labored General / Constitutional Constitutional Assessment: Normal General State of Health:: healthy appearing Neurological Sx of aphasia. Otherwise denies any neurologic symptoms. No weakness or numbness. Neurologic Assessment:??alert Dental Dental Assessment: dentition in poor repair ASSESSMENT / PLAN ANESTHESIA PLAN ASA: 3 Anesthesia Plan: general Patient seen and allergies reviewed, anesthesia plan and risks discussed directly with patient /legal guardian or through an geothermal production manager. Risks/Benefits/Alternatives of Blood transfusion discussed with patient / legal guardian, including an opportunity to ask questions and/or decline some or all transfusion therapies. The patient / legalguardian consented to the use of all blood products, as deemed medically necessary Approval to Proceed: approved for anesthesia Last apixaban 10/03. Discussed invasive lines and monitors. All questions answered. documented in this encounter Plan of Treatment Upcoming Encounters Date Type Specialty Care Team Description 11/18/2021 Appointment Radiation Oncology Luiz Nagy M.D. [address] [place], [place] [phone] (Wo rk) documented as of this encounter Procedures Procedure Name Priority Date/Time Associated Comments Diagnosis LDA ANE ARTERIAL LINE Routine 10/07/2021 1:15 PM Results for this INSERTION CDT procedure are i n the results section. OK ARTL CATH/CNULA Routine 10/07/2021 1:15 PM Res ults for this MONITOR PERC CDT procedure are i n the results section. LDA ANE ENDOTRACHEAL Routine 10/07/2021 1:13 PM R esults for this AIRWAY CDT procedure are i n the results section. documented in this encounter Results OK ARTL CATH/CNULA MONITOR PERC, LDA ANE ARTERIAL LINE INSERTION (10/07/2021 1:15 PM CDT) Narrative Magdaleno Geronimo M.D. - 10/07/2021 1:15 PM CDT Magdaleno [...] ETT location: oral VL device: glide scope [place] scope blade size: 4 Adult tube size: [...] no complications Magdaleno Geronimo M.D. ANESTHESIA ORDERABLES documented in this encounter Visit Diagnoses Not on filedocumented in this encounter Administered Medications Inactive Administered Medications - up to 3 most recent administrations Medication Order MAR Action Action Date Dose Rate Site ceFAZolin injection 2,000 mg (ANCEF) Given 10/07/2021 5:29 PM CDT 2 g 2,000 mg (rounded from 2,077.5 mg = 25 mg/kg ? 83.1 kg Dosing weight), intravenous, Once, On Sun10/07/21 at 1230, For 1 dose, Intra-Op, Administer within 1 hour prior to surgical incision If needed, reconstitute vial per package insert instructions. See IVAG for administration guidelines. , Drug Monitoring Program: Pharmacist to adjust medication dosing based on indication and drug clearance factors., Indications: Prophylaxis, surgical Given 10/07/2021 2:30 PM CDT 2 g dexAMETHasone injection 10 mg (DECADRON) Given 10/07/2021 1:22 PM CDT 10 mg 10 mg, intravenous, Once in surgery, OR use only, Starting on Sun10/07/21 at 1227, For 1 dose, Intra-Op, Please confirm with surgical service prior to administering. ePHEDrine (PF) injection Given 10/07/2021 2:34 PM CDT 5 mg intravenous, As needed, Starting on Sun10/07/21 at 1426, Anesthesia Intra-op Given 10/07/2021 2:26 PM CDT 5 mg fentaNYL injection (SUBLIMAZE) Given 10/07/2021 3:33 PM CDT 50 mcg intravenous, As needed, Starting on Sun10/07/21 at 1315, Anesthesia Intra-op Given 10/07/2021 1:45 PM CDT 50 mcg Given 10/07/2021 1:15 PM CDT 50 mcg labetalol injection (NORMODYNE,TRANDATE) Given 10/07/2021 5:42 PM CDT 10 mg intravenous, As needed, Starting on Sun10/07/21 at 1728, Anesthesia Intra-op Given 10/07/2021 5:35 PM CDT 10 mg Given 10/07/2021 5:32 PM CDT 10 mg lactated ringers New Bag 10/07/2021 3:14 PM CDT intravenous, Continuous Infusion: Per Instructions PRN, Starting on Sun10/07/21 at 1256, Anesthesia Intra-op New Bag 10/07/2021 12:56 PM CDT lactated ringers New Bag 10/07/2021 1:16 PM CDT intravenous, Continuous Infusion: Per Instructions PRN, Starting on Sun10/07/21 at 1316, Anesthesia Intra-op levETIRAcetam in NaCl (iso-os) IVPB 1,000 Given 10/07/2021 2 :19 PM CDT 1,000 mg mg (KEPPRA) 1,000 mg, intravenous, at 400 mL/hr, Administer over 15 Minutes, Once, On Sun10/07/21 at 1230, For 1 dose, Intra-Op lidocaine (PF) (cardiac) injection Given 10/07/2021 1:05 PM CDT 60 mg intravenous, As needed, Starting on Sun10/07/21 at 1305, Anesthesia Intra-op mannitol injection Given 10/07/2021 2:16 PM CDT 5 g intravenous, As needed, Starting on Sun10/07/21 at 1411, Anesthesia Intra-op Given 10/07/2021 2:15 PM CDT 12.5 g Given 10/07/2021 2:13 PM CDT 12.5 g ondansetron (PF) injection (ZOFRAN) Given 10/07/2021 5:06 PM CDT 4 mg intravenous, As needed, Starting on Sun10/07/21 at 1706, Anesthesia Intra-op phenylephrine 80 Rate/Dose Change 10/07/2021 5:19 PM 0.1 mcg/kg/min 6 .233 mL/hr mcg/mL in NaCl 0.9% CDT 250 mL infusion 0-1 mcg/kg/min ? 83.1 kg Dosing weight (0-62.325 mL/hr, rounded to 0-62.33 mL/hr), intravenous, Continuous, Starting on Sun10/07/21 at 1245, Intra-Op, 20 mg in 250 mL, Patient Type: Standard, initiate at: Other, Rate: Per Provider, Titrate at: Other, Titrate: Per Provider, Goal: Other, Goal: Per Provider Rate/Dose Change 10/07/2021 5:18 PM CDT 0.2 mcg/kg/min 12.465 mL/hr Rate/Dose Change 10/07/2021 5:01 PM CDT 0.3 mcg/kg/min 18.698 mL/hr phenylephrine injection Given 10/07/2021 1:51 PM CDT 75 mcg intravenous, As needed, Starting on Sun10/07/21 at 1323, Anesthesia Intra-op Given 10/07/2021 1:23 PM CDT 100 mcg propofol 10 mg/mL infusion Rate/Dose 10/07/2021 4:59 75 mcg/kg/min 3 7.215 (DIPRIVAN) Change PM CDT mL/hr intravenous, Continuous Infusion: Per Instructions PRN, Starting on Sun10/07/21 at 1305, Anesthesia Intra-op Rate/Dose Change 10/07/2021 4:17 PM CDT 100 mcg/kg/min 49.62 mL/hr Rate/Dose Change 10/07/2021 3:33 PM CDT 125 mcg/kg/min 62.025 mL/hr propofoL injection (DIPRIVAN) Given 10/07/2021 1:56 PM CDT 50 mg intravenous, As needed, Starting on Sun10/07/21 at 1305, Anesthesia Intra-op Given 10/07/2021 1:15 PM CDT 50 mg Given 10/07/2021 1:05 PM CDT 200 mg sugammadex injection (BRIDION) Given 10/07/2021 5:34 PM CDT 200 mg intravenous, As needed, Starting on Sun10/07/21 at 1734, Anesthesia Intra-op vecuronium injection (NORCURON) Given 10/07/2021 4:46 PM CDT 2 mg intravenous, As needed, Starting on Sun10/07/21 at 1307, Anesthesia Intra-op Given 10/07/2021 4:18 PM CDT 2 mg Given 10/07/2021 3:45 PM CDT 2 mg documented in this encounter Care Teams Cyber Security Manager Relationship Specialty Start Date End Date Elsewhere, Pcp PCP - General Internal Medicine 10/03/21 documented as of this encounter
--- OUTSIDE RECORDS SUMMARY | 2021-11-18 09:36 | XMS_ITS | Encounter Summary ---
:1945 Author Organization [facility] Address [address] [place] [id number] Care Team Providers Name Role Phone Unassigned, Pcp Primary Care Provider Unavailable Reason for Visit Reason Comments Eye Exam Appointment Request (Routine) - Closed Specialty Diagnoses / Procedures Referred By Contact Refer red To Contact Ophthalmology Referral ID Status Reason Start Date Expiration Date Visits Requ ested Visits Authorized [id number] Closed 02/07/2018 02/07/2019 1 1 Encounter Details Date Type Department Care Team Description 03/07/2018 Comprehensive Visit Department of [facility] Regular Bilateral (Primary Dx); Ophthalmology in [facility] Shakir Cadena O.D. Presbydavonte raphael; [place], [place] Age Related Nuclear Cataract Bilateral [address] [place] [address] Social History Tobacco Use Types Packs/Day Years Used Date Smoking Tobacco: Former Smokeless Tobacco: Never Alcohol Use Standard Drinks/Week Comments Defer 0 (1 standard drink = 0.6 oz pure alcoho l) Sex Assigned at Date Recorded Not on file documented as of this encounter Progress Notes Shakir Bone O.D. 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 [id number] cataracts in each eye not causing visual complaints. Plan: Manifest refraction with a +2.50 add was given. Recheck health of eyes with full exam in 2 years sooner if needed. FIELDER documented in this encounter Plan of Treatment Upcoming Encounters Date Type Specialty Care Team Description 11/18/2021 Appointment Radiation Oncology Luiz Nagy M.D. [address] [place], [place] [phone] (Wo rk) documented as of this encounter Visit Diagnoses Diagnosis Astigmatism Regular Bilateral - Primary Presbyopia Age Related Nuclear Cataract Bilateral documented in this encounter Care Teams Document Coordinator Relationship Specialty Start Date End Date Unassigned, Pcp PCP - General Family Medicine 05/17/17 10/02/21 documented as of this encounter
--- OUTSIDE RECORDS SUMMARY | 2021-11-18 09:36 | XMS_ITS | Encounter Summary ---
:1945 Author Organization [facility] Address [address] [place] [address] Care Team Providers Name Role Phone Unassigned, Pcp Primary Care Provider Unavailable Reason for Visit Reason Comments Rapid Heart Rate Pt presents to ED with compl aint of racing heart rate. Pt denies cp. Encounter Details Date Type Department Care Team Description 08/15/2020 Emergency [facility], Rodriguez N Palpi tations (Primary Department C.N.P. Dx) [address] [place] [address] [place] [id number] [phone] Social History Tobacco Use Types Packs/Day Years Used Date Smoking Tobacco: Former Smokeless Tobacco: Never Alcohol Use Standard Drinks/Week Comments Defer 0 (1 standard drink = 0.6 oz pure alcoho l) Sex Assigned at Date Recorded Not on file documented as of this encounter Last Filed Vital Signs Vital Sign Reading Time Taken Comments Blood Pressure 155/75 08/15/2020 10:00 PM CDT Pulse 77 08/15/2020 10:15 PM CDT Temperature 36.4 ??C (97.5 ??F) 08/15/2020 7:30 PM CDT Respiratory Rate 17 08/15/2020 10:15 PM CDT Oxygen Saturation 93% 08/15/2020 10:15 PM CDT Inhaled Oxygen Concentration - - Weight 83 kg (182 lb 15.7 oz) 08/15/2020 7:37 PM CDT Height - - Body Mass Index 28.38 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 - 08/15/2020 10:03 PM CDT Follow-up with your primary care providers next week for further evaluations of your palpitation as well as discussing possibility of being on blood thinner Return to the ED if you develop worsening symptoms, chest pain, difficulty breathing, or any other concerns AttachmentsThe following attachments cannot be sent through Care Everywhere. Palpitations [id number] (Bahamian)documented in this encounter Medications at Time of Discharge Medication Sig Dispensed Refills Start Date End Date amoxicillin (for_AMOXIL) Take 500 mg by mouth 0 500 mg capsule as needed (4 tabs one hr prior to dental work). multivitamin capsule Take 1 tablet by 0 6 mouth daily. metoprolol tartrate TAKE ONE-HALF TABLET 0 202010/04/2021 (LOPRESSOR) 50 mg tablet BY MOUTH TWICE A DAY predniSONE (DELTASONE) TAKE ONE TABLET BY 0 08/0210/04/2021 20 mg tablet MOUTH EVERY DAY FOR 14 DAYS -TAKE WITH FOOD -DO NOT STOP TAKING ABRUPTLY sulfamethoxazole-trimeth TAKE 1 TABLET BY 0 07/1510/04/2021 oprim (BACTRIM,SEPTRA) MOUTH EVERY DAY TO 400-80 mg per tablet PREVENT INFECTION WHILE ON HIGH DOSE PREDNISONE aspirin [address] tablet Take 81 mg by mouth 0 10/04/2021 daily. raNITIdine (for_ZANTAC) Take 150 mg by mouth 0 10/04/2021 150 mg tablet 2 (two) times a day. documented as of this encounter ED Notes Michael South C.N.Pepper. - 08/15/2020 7:59 PM CDT SUBJECTIVE CHIEF COMPLAINT/REASON FOR VISIT Rapid Heart Rate (Pt presents to ED with complaint of racing heart rate. Pt denies cp.) HISTORY OF PRESENT ILLNESS Crow Orellana is a 74 y.o. male with history of atrial fibrillation, hyperlipidemia who presents to the ED with complaint of palpitation. Patient reports about 50 minutes prior to arrival to the ED he started having a rapid heart rate. He denies any episodes of chest pain, shortness of breath,or diaphoresis. Denies any nausea vomiting. He does not taking any blood thinner for his atrial fibrillation. No other complaint noted at this time. Denies any leg swelling or recent travel. REVIEW OF SYSTEMS Constitutional: Negative for chills and fever. HENT: Negative for facial swelling. Eyes: Negative for keith-orbital edema. Respiratory: Negative for shortness of breath. Cardiovascular: Positive for palpitations. Negative for chest pain and leg swelling. Gastrointestinal: Negative for abdominal pain, blood in stool, nausea and vomiting. Genitourinary: Negative for dysuria and flank pain. Musculoskeletal: Negative for back pain and neck pain. Skin: Negative for pallor. Neurological: Negative for headaches. Psychiatric/Behavioral: Negative. Negative for hallucinations, homicidal ideas and suicidal ideas. All other systems reviewed and are negative. OBJECTIVE Initial Vitals Temperature Pulse Rate Heart Rate Resp Rate Blood Pressure SpO2 08/15/20192908/15/20192908/15/20 1945 08/15/20 19308/15/20 19308/15/201929 36.4 ??C 98 96 20 149/80 95 % Pain Score 08/15/201929 0 - No pain PHYSICAL EXAMINATION Constitutional: Nursing note and vitals reviewed. He appears not lethargic. No distress. HENT: Head: Normocephalic. Mouth/Throat: Oropharynx is clear and moist. Mucous membranes are moist. Eyes: Pupils are equal, round, and reactive to light. Neck: Neck supple. Cardiovascular: Normal rate, S1 normal, S2 normal and normal heart sounds. An irregularly irregular rhythm present. Exam reveals no gallop and no friction rub. Pulses are palpable. No murmur heard.Capillary refill: takes less than 3 seconds, Pulmonary/Chest: Effort normal and breath sounds normal. No tachypnea. No respiratory distress. He exhibits no retraction. Abdominal: Soft. Bowel sounds are normal. exhibits no distension and no mass. There is no abdominal tenderness. There is no rebound and no guarding. Musculoskeletal: General: Normal range of motion. Cervical back: Normal range of motion and neck supple. Neurological: Alert and oriented to person, place, and time. Skin: Skin is warm and dry. He is not diaphoretic. Psychiatric: He has a normal mood and affect. ASSESSMENT/PLAN IMPRESSION AND PLAN Patient seen and examined. Differential diagnoses includes but is not limited to: thyroid abnormalities, arrhythmia, prolonged QT, brugada, HCOM, ARVD, ACS, sepsis, metabolic abnormalities, SVT, atrialfibrillation, pulmonary embolism, ventricular tachycardia, ventricular fibrillation, and others considered. EKG shows no evidence of prolonged QT, Brugada, HCOM, ARVD, VT, or VF. If she initially did shows atrial flutter with variable AV block. Repeat EKG shows sinus rhythm with PVC. Troponin and 2 hour delta unchanged. He did not have any chest pain or shortness of breath. Low suspicion for ACS at this time. CT did not shows any evidence of pulmonary embolism. No electrolyte abnormality noted. After considering the context of the patient's history, exam, and diagnostic results, my impression is??palpitation. Plan: Given reassuring finding, plan is to discharge him home with recommendation he keep appointment with his primary providers for further evaluation. He does have a Zio monitor on. Advised him on strict return precaution. He states understanding. I personally reviewed the lab result(s) and my interpretation is abnormal. I reviewed the radiology report(s). The Radiology exam interpretation(s) is/are normal. I independently reviewed the ECG tracing and my interpretation is abnormal. ED Course as of Aug 15 2202 [place] Aug 15, [id number] ECG 12 Lead 2008 D-Dimer, P(!): 1094 2157 2H Delta Interp: Not Changing Final Diagnoses: as of Aug 15 2202 Palpitations Michael South, C.N.P. 08/15/202202 documented in this encounter Plan of Treatment Upcoming Encounters Date Type Specialty Care Team Description 11/18/2021 Appointment Radiation Oncology Luiz Nagy M.D. [address] [place], [place] [phone] (Wo rk) documented as of this encounter Procedures Procedure Name Priority Date/Time Associated Comments Diagnosis TROPONIN T, 2H/6H, Timed 08/15/2020 9:33 Result s for this 5TH GEN, P PM CDT procedure are i n the results section. ECG STAT 08/15/2020 9:14 Results for this PM CDT procedure are i n the results section. CT CHEST ANGIOGRAM RAD - Semiurgent 08/15/2020 8:56 Re sults for this AND PULMONARY (Fast; most ED PM CDT procedure ar e in ARTERIES WITH IV patients; some the resul ts CONTRAST inpatients) section. DX CHEST PORTABLE 1 RAD - Semiurgent 08/15/2020 7:51 R esults for this VIEW (Fast; most ED PM CDT procedure are in patients; some the results inpatients) section. TROPONIN T, STAT 08/15/2020 7:44 Results for this BASELINE, 5TH GEN, PM CDT procedure are in P the results section. NT-PRO B-TYPE STAT 08/15/2020 7:44 Results for this NATRIURETIC PEPTIDE PM CDT procedur e are in (BNP), S the results section. PROTHROMBIN TIME STAT 08/15/2020 7:44 Results for this (PT), P PM CDT procedure are i n the results section. CBC WITHOUT STAT 08/15/2020 7:44 Results for this DIFFERENTIAL, B PM CDT procedure ar e in the results section. LIPASE, S/P STAT 08/15/2020 7:44 Results for this PM CDT procedure are i n the results section. BASIC METABOLIC STAT 08/15/2020 7:44 Results f or this PANEL, S/P PM CDT procedure are i n the results section. D-DIMER, P STAT 08/15/2020 7:42 Results for this PM CDT procedure are i n the results section. ECG STAT 08/15/2020 7:40 Results for this PM CDT procedure are i n the results section. documented in this encounter Results (ABNORMAL) Troponin T, 2H/6H, 5th Gen (08/15/2020 9:33 PM CDT) P athologist Signature Troponin T, 2 16 (H) <=15 ng/L 08/15/2020 CNFL hr, 5th gen 9:55 PM CDT Comment: Biotin has been identified by the ale pachecourer as a potential interfering substance. ??Higher concentr ations of biotin may be found in multivitamins, hair/nail supple ments, and workout supplements. ??If the result does not ma tch clinical observations, repeat testing after patient refrains fr om the use of supplements for at least 12 hours. 2H Delta 1 ng/L 08/15/2020 9:55 PM CDT CNFL 2H Delta Interp Not Changing 08/15/2020 9:55 PM CD T CNFL Troponin T, 6 hr, 5th gen CANCELED ng/L 08/15/2020 9:5 5 PM CDT CNFL Comment: Result canceled by the [facility]ata de [place] Specimen Anatomical Collection Method Collection Time Receive d Time (Source) Location / / Volume Laterality Blood (Blood, 08/15/2020 9:33 PM 08/16/19 9:34 Venous) CDT PM CDT Narrative [facility] - 08/15/2020 9:55 PM CDT Specimen Information: Specimen ID: [id number] Specimen Type: Blood Specimen Collection Start Date: ??9:33 PM Specimen Received Date: 08/15/2020 ??9:34 PM Specimen ID: [id number] Specimen Type: Blood Michael South C.N.P. LAB BLOOD TROPONIN Performing Organization Address City/State/ZIP Code Phon e Number [address] [address] [place] [address] [address] ECG 12 Lead (08/15/2020 9:14 PM CDT) athologist Signature Ventricular Rate 80 BPM MUSE ECG/Min [place] Interval 130 ms MUSE QRSD Interval 82 ms MUSE QT Interval 388 ms MUSE QTC Interval 447 ms MUSE P Wilmer 50 degrees MUSE R Wilmer 27 degrees MUSE T Wave Wilmer 37 degrees MUSE Specimen Anatomical Collection Method Collection Time Receive d Time (Source) Location / / Volume Laterality 08/15/2020 9:14 PM 9:17 CDT PM CDT Impressions MUSE - 08/15/2020 9:17 PM CDT Sinus rhythm Premature ventricular complexes Otherwise normal ECG When compared with ECG of 15-AUG-2020 19 :40, Rhythm has changed Premature ventricular complexes are now present Reviewed by SAW Mina Narrative This result has an attachment that is no t available. Procedure Note Eric Nagy M.D. - 08/15/2020Forma tting of this note might be different from the original. IMPRESSION: Sinus rhythm Premature ventricular complexes Otherwise normal ECG When compared with ECG of 15-AUG-2020 19 :40, Rhythm has changed Premature ventricular complexes are now present Reviewed by SAW Mina Rodriguez N South C.N.P. ECG ORDERABLES Performing Organization Address City/State/ZIP Code Phon e Number MUSE MUSE NA CT Chest Angiogram and Pulmonary Arteries with IV Contrast (08/15/2020 8:56 PM CDT) Anatomical Region Laterality Modality Chest, Cardiovascular RST LOS, Thoracic ARZ LOS, N/A Computed Tomography Thoracic FLA LOS Specimen (Source) Anatomical Collection Method Collection Time Re ceived Time Location / / Volume Laterality 08/15/2020 9:11 PM CDT Impressions 08/15/2020 9:16 PM CDT 1. ??Negative for acute pulmonary embolism. 2. ??Scattered smooth into fine reticula r opacities throughout both lungs with a peripheral predominance. Findings could be seen with underlying fibrotic lung disease. 3. ??Mild apical predominant centrilobul ar emphysema discussion 4. ??Scattered bronchial thickening. No focal consolidation. Narrative 08/15/2020 9:16 PM CDT EXAM: CT CHEST ANGIOGRAM AND PULMONARY ARTERIES WITH IV CONTRAST Including 3-D image postprocessing. COMPARISON: None FINDINGS: Negative for acute pulmonary e mbolism. No evidence right heart strain. Scattered calcified atherosclerotic dise ase with coronary artery calcifications. Aortic valve and mitral annular calcific ations. Scattered fine reticular opacities throu ghout both lungs with a peripheral and basilar predominance. Superimposed depen dent atelectasis in both lung bases. Mild bronchial thickening. Scattered jacob trilobular emphysema with an apical predominance. No mediastinal or hilar ad enopathy. Right chest wall Port-A-Cath tip near the SVC/RA junction. Multiple small hepatic cysts or hemangio mas. Fatty atrophy of the pancreatic tail. The remainder the visualized upper abdominal organs are unremarkable. 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 Scattered degenerative disc disease throughout the thoracic spine. Procedure Note Norman Muniz M.D. - 08/15/2020Form atting of this note might be different from the original. EXAM: CT CHEST ANGIOGRAM AND PULMONARY A RTERIES WITH IV CONTRAST Including 3-D image postprocessing. COMPARISON: None FINDINGS: Negative for acute pulmonary e mbolism. No evidence right heart strain. Scattered calcified atherosclerotic dise ase with coronary artery calcifications. Aortic valve and mitral annular calcific ations. Scattered fine reticular opacities throu ghout both lungs with a peripheral and basilar predominance. Superimposed depen dent atelectasis in both lung bases. Mild bronchial thickening. Scattered jacob trilobular emphysema with an apical predominance. No mediastinal or hilar ad enopathy. Right chest wall Port-A-Cath tip near the SVC/RA junction. Multiple small hepatic cysts or hemangio mas. Fatty atrophy of the pancreatic tail. The remainder the visualized upper abdominal organs are unremarkable. 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 Scattered degenerative disc disease throughout the thoracic spine. IMPRESSION: 1. Negative for acute pulmonary embolism . 2. Scattered smooth into fine reticular opacities throughout both lungs with a peripheral predominance. Findings could be seen with underlying fibrotic lung disease. 3. Mild apical predominant centrilobular emphysema discussion 4. Scattered bronchial thickening. No fo cesar consolidation. Rodriguez N South C.N.P. IMG CT PROCEDURES DX Chest Portable 1 View (08/15/2020 7:51 PM CDT) Anatomical Region Laterality Modality Chest, Thoracic RST LOS, Thoracic ARZ LOS, Thoracic N/A Computed Radiography FLA LOS Specimen (Source) Anatomical Collection Method Collection Time Re ceived Time Location / / Volume Laterality 08/16/2020 8:08 AM CDT Impressions 08/16/2020 8:09 AM CDT New trace right pleural effusion and new right basilar atelectasis. Patchy opacities in left lung base may r epresent atelectasis or pneumonitis. Epicardial fat pads. Borderline cardiac enlargement. Right IJ Port-A-Cath with the tip at the RA/SVC junction. Narrative 08/16/2020 8:09 AM CDT EXAM: DX CHEST PORTABLE 1 VIEW Procedure Note Raza Mi M.D. - 08/16/2020F ormatting of this note might be different from the original. EXAM: DX CHEST PORTABLE 1 VIEW IMPRESSION: New trace right pleural effusion and new right basilar atelectasis. Patchy opacities in left lung base may r epresent atelectasis or pneumonitis. Epicardial fat pads. Borderline cardiac enlargement. Right IJ Port-A-Cath with the tip at the RA/SVC junction. Michael GaytanNLucindaPLucinda IMG DIAGNOSTIC IMAGING PROCE DURES Prothrombin Time (PT) (08/15/2020 7:44 PM CDT) P athologist Signature Prothrombin 10.5 9.4 - 12.5 08/15/2020 CNFL Time, P sec 7:54 PM CDT INR 1.0 0.9 - 1.1 08/15/2020 CNFL 7:54 PM CDT Comment: ----ADDITIONAL INFORMATION---- Standard intensity warfarin therapeutic range: 2.0 to 3.0 ?? High intensity warfarin therapeutic rang e: 2.5 to 3.5 Specimen Anatomical Collection Method Collection Time Receive d Time (Source) Location / / Volume Laterality Blood (Blood, 08/15/2020 7:44 PM 08/16/19 7:46 Venous) CDT PM CDT Michael GaytanNCandice LAB BLOOD ADD-ON Performing Organization Address City/State/ZIP Code Phon e Number [facility] [address] [place] [id number] [facility] [place] [address] [address] (ABNORMAL) CBC without Differential (08/15/2020 7:44 PM CDT) Patholo gist Method Time Signature Hemoglobin 10.7 (L) 13.2 - 08/15/2020 CNFL 16.6 g/dL 7:52 PM CDT Hematocrit 33.4 (L) 38.3 - 08/15/2020 CNFL 48.6 % 7:52 PM CDT Erythrocytes 3.43 (L) 4.35 - 08/15/2020 CNFL 5.65 7:52 PM CDT x10(12)/L MCV 97.4 78.2 - 08/15/2020 CNFL 97.9 fL 7:52 PM CDT RBC Distrib Width 16.7 (H) 11.8 - 08/15/2020 CNFL 14.5 % 7:52 PM CDT Platelet Count 185 135 - 317 08/15/2020 CNFL x10(9)/L 7:52 PM CDT Leukocytes 7.5 3.4 - 9.6 08/15/2020 CNFL x10(9)/L 7:52 PM CDT Specimen Anatomical Collection Method Collection Time Receive d Time (Source) Location / / Volume Laterality Blood (Blood, 08/15/2020 7:44 PM 08/16/19 7:46 Venous) CDT PM CDT Michael N South C.N.P. LAB BLOOD ADD-ON Performing Organization Address [facility] Phon e Number [address] [address] [place] [address] System [place] [address] [address] Troponin T, Baseline, 5th gen (08/15/2020 7:44 PM CDT) athologist Signature Troponin T, 15 <=15 ng/L 08/15/2020 CNWV Baseline, 5th 8:07 PM CDT gen Comment: Biotin has been identified by the ale reed as a potential interfering substance. ??Higher concentr ations of biotin may be found in multivitamins, hair/nail supple ments, and workout supplements. ??If the result does not ma [facility] clinical observations, repeat testing after patient refrains fr om the use of supplements for at least 12 hours. Specimen Anatomical Collection Method Collection Time Receive d Time (Source) Location / / Volume Laterality Blood (Blood, 08/15/2020 7:44 PM 08/16/19 7:46 Venous) CDT PM CDT Michael South C.N.P. LAB BLOOD TROPONIN Performing Organization Address [facility] Phon e Number [address] [address] [place] [address] System in [place] [address] [address] Lipase (08/15/2020 7:44 PM CDT) athologist Signature Lipase, P 23 13 - 60 U/L 08/15/2020 8:04 CNFL PM CDT Specimen Anatomical Collection Method Collection Time Receive d Time (Source) Location / / Volume Laterality Blood (Blood, 08/15/2020 7:44 PM 08/16/19 7:46 Venous) CDT PM CDT Michael Mosley.N.P. LAB BLOOD ADD-ON Performing Organization Address [facility] Phon e Number [place] [address] [place] [address] [place] [address] System in [place] [address] Bl (ABNORMAL) NT-Pro B-Type Natriuretic Peptide (BNP) (08/15/2020 7:44 PM CDT) athologist Signature NT-Pro BNP 729 (H) <=107 pg/mL 08/15/2020 [facility] 8:19 PM CDT Comment: NT-proBNP values less than 300 pg/mL hav e a 99% negative predictive value for excluding acute congestive heart abisai lure. A cutoff of 1200 pg/mL for patients with an eGFR<60 yields a diagno stic sensitivity and specificity of 89% and 72% for acute congestive heart f ailure. ??A diagnostic NT-proBNP cutoff of 900 pg/mL has been suggested i n adults 50-75 years of age in the absence of renal failure. Biotin has been identified by the ale reed as a potential interfering substance. ??Higher concentr ations of biotin may be found in multivitamins, hair/nail supple ments, and workout supplements. ??If the result does not ma [facility] clinical observations, repeat testing after patient refrains fr om the use of supplements for at least 12 hours. Specimen Anatomical Collection Method Collection Time Receive d Time (Source) Location / / Volume Laterality Blood (Blood, 08/15/2020 7:44 PM 08/16/19 7:46 Venous) CDT PM CDT Michael GaytanN.P. LAB BLOOD ADD-ON Performing Organization Address City/[facility] Phon e Number [place] [address] [place] [address] [place] [address] [address] (ABNORMAL) Basic Metabolic Panel (08/15/2020 7:44 PM CDT) Analysis Performed At Patho logist Time Signature Potassium, P 4.4 3.6 - 5.2 08/15/2020 CNFL mmol/L 8:04 PM CDT Sodium, P 139 135 - 145 08/15/2020 CNFL mmol/L 8:04 PM CDT Chloride, P 104 98 - 107 08/15/2020 CNFL mmol/L 8:04 PM CDT Bicarbonate, P 22 22 - 29 08/15/2020 CNFL mmol/L 8:04 PM CDT Anion Gap, P 13 7 - 15 08/15/2020 CNFL 8:04 PM CDT BUN (Blood Urea 25 (H) 8 - 24 08/15/2020 CNFL Nitrogen), P mg/dL 8:04 PM CDT Creatinine 1.39 (H) 0.74 - 08/15/2020 CNFL 1.35 mg/dL 8:04 PM CDT eGFR-Black/Afri 58 (L) >=60 08/15/2020 CNFL can Citizen [place] mL/min/BSA 8:04 PM CDT Comment: ----ADDITIONAL INFORMATION---- Estimated GFR calculated using the 2009 CKD_EPI creatinine equation. eGFR Non-Black/ 50 (L) >=60 mL/min/BSA 08/15/2020 8:04 PM CDT CNFL [place] Comment: ----ADDITIONAL INFORMATION---- Estimated GFR calculated using the 2009 CKD_EPI creatinine equation. Calcium, Total, P 8.7 (L) 8.8 - 10.2 mg/dL 08/15/2020 8:04 PM CDT CNFL Glucose, P 65 (L) 70 - 140 mg/dL 08/15/2020 8:04 PM CDT C NFL Specimen Anatomical Collection Method Collection Time Receive d Time (Source) Location / / Volume Laterality Blood (Blood, 08/15/2020 7:44 PM 08/16/19 7:46 Venous) CDT PM CDT Michael South CLucindaN.P. LAB BLOOD ADD-ON Performing Organization Address City/State/ZIP Code Phon e Number [facility]- [address] [place] [address] [place] [address] [facility] [address] (ABNORMAL) D-Dimer (08/15/2020 7:42 PM CDT) P athologist Signature D-Dimer, P 1094 (H) <=500 ng/mL 08/15/2020 CNFL FEU 8:02 PM CDT Comment: D-dimer concentrations increase with age . ??For DVT/PE exclusion, in addition to clinical pre-test probabi lity, age-adjusted D-dimer cut-offs are suggested for patients >50 years old. For additional information refer to the D-dimer assay i n the Laboratory Test Catalog (LTC) and/or [employer] (SHERRI) . ----ADDITIONAL INFORMATION---- D-dimer values less than or equal to 500 ng/mL fibrinogen equivalent units (FEU) may be used in co njunction with clinical pre-test probability to exclude deep vein thrombosis (DVT) and/or pulmonary emboli sm (PE). Specimen Anatomical Collection Method Collection Time Receive d Time (Source) Location / / Volume Laterality Blood (Blood, 08/15/2020 7:42 PM 08/16/19 7:48 Venous) CDT PM CDT Michael N South C.N.P. LAB BLOOD ADD-ON Performing Organization Address City/State/ZIP Code Phon e Number [facility]- [address] [place] [id number] [place] [address] ECG 12 Lead (08/15/2020 7:40 PM CDT) Patholo gist Method Time Signature Ventricular 118 BPM MUSE Rate ECG/Min QRSD Interval 84 ms MUSE QT Interval 312 ms MUSE QTC Interval 437 ms MUSE R Wilmer 33 degrees MUSE T Wave Wilmer -149 degrees MUSE CODED DIAGNOSIS Atrial MUSE flutter Specimen Anatomical Collection Method Collection Time Receive d Time (Source) Location / / Volume Laterality 08/15/2020 7:40 PM 7:44 CDT PM CDT Impressions MUSE - 08/15/2020 7:44 PM CDT Atrial flutter with variable A-V block Nonspecific ST and T wave abnormality No previous ECGs available Reviewed by SAW Mina Narrative This result has an attachment that is no t available. Procedure Note Eric Nagy M.D. - 08/15/2020Forma tting of this note might be different from the original. IMPRESSION: Atrial flutter with variable A-V block Nonspecific ST and T wave abnormality No previous ECGs available Reviewed by SAW Mina Rodriguez N South C.N.P. ECG ORDERABLES Performing Organization Address City/State/ZIP Code Phon e Number MUSE MUSE NA documented in this encounter Visit Diagnoses Diagnosis Palpitations - Primary documented in this encounter Administered Medications Inactive Administered Medications - up to 3 most recent administrations Medication Order MAR Action Action Date Dose Rate Site aspirin chewable tablet 324 mg Given 08/15/2020 7:46 PM CDT 324 mg 324 mg, oral, Once, On 08/15/20 at 1933, For 1 dose iohexoL (OMNIPAQUE) 350 mg iodine/mL norbert ution - ADS Override Pull Starting on 08/15/20 at 2031, For 1 dose, Created by cabinet override iohexoL 350 mg iodine/mL solution 125 mL Given 08/15/2020 8:56 P M CDT 125 mL (OMNIPAQUE) 125 mL, intravenous, Once in imaging, contrast, Starting on 08/15/20 at 2028, For 1 dose sodium chloride 0.9 % flush 80 mL Given 08/15/2020 8:57 PM CDT 80 mL 80 mL, intravenous, Once in imaging, line care, Starting on 08/15/20 at 2028, For 1 dose sodium chloride 0.9 % injection 10 mL Given 08/15/2020 8:57 PM CDT 10 mL 10 mL, intravenous, As needed, line care, Starting on 08/15/20 at 2028 documented in this encounter Active and Recently Administered Medications Times are shown in CDT. Scheduled Medication Order 08/13/2020 08/14/2020 08/15/2020 aspirin chewable tablet 324 mg (COMPLETED) 1945 (Given - Provider: Ritesh Lim R.N.) 324 mg, oral, Once, On 08/15/20 at 1933, For 1 dose PRN Medication Order 08/13/2020 08/14/2020 08/15/2020 iohexoL 350 mg iodine/mL solution 125 mL (OMNIPAQUE) (COMPLETED) 2055 (Given - Provider: [place](Klarissa)(CT), R.T.(R) - Comment: [id number]) 125 mL, intravenous, Once in imaging, co ntrast, Starting on 08/15/20 at 2028, For 1 dose sodium chloride 0.9 % flush 80 mL (COMPLETED) 2056 (Given - Provider: [place](Klarissa)(CT), R.T.(R)) 80 mL, intravenous, Once in imaging, kathie e care, Starting on 08/15/20 at 2028, For 1 dose sodium chloride 0.9 % injection 10 mL 2056 (Given - Provider: [place](Klarissa)(CT), R.T.(R)) 10 mL, intravenous, As needed, line care, Starting on 08/15/20 at 2028 documented in this encounter Care Teams Shop Cooper Relationship Specialty Start Date End Date Unassigned, Pcp PCP - General Family Medicine 05/17/17 10/02/21 documented as of this encounter
--- OUTSIDE RECORDS SUMMARY | 2021-11-18 09:36 | XMS_ITS | Encounter Summary ---
:[address] [facility] Address [address] [place] [id number] Care Team Providers Name Role Phone Unassigned, Pcp Primary Care Provider Unavailable Reason for Visit Reason Comments URI Conjunctivitis Appointment Request (Routine) - Closed Specialty Diagnoses / Procedures Referred By Contact Refer red To Contact Family Medicine Referral ID Status Reason Start Date Expiration Date Visits Requ ested Visits Authorized [id number] Closed 05/17/2017 11/13/2017 1 Encounter Details Date Type Department Care Team Description 05/17/2017 Office Visit Department of [facility], Karen vincent (Primary Dx); Medicine, Cruz Cadena APRN, C.N.PLucinda Conjunctivitis Acute [facility], [id number] [phone] [place], [place] (Work) [phone] Social History Tobacco Use Types Packs/Day Years Used Date Smoking Tobacco: Former Smokeless Tobacco: Never Sex Assigned at Date Recorded Not on file documented as of this encounter Last Filed Vital Signs Vital Sign Reading Time Taken Comments Blood Pressure 136/71 05/17/2017 9:47 AM CUSTOMER FACILITIES SUPERVISOR Pulse 89 05/17/2017 9:47 AM CUSTOMER FACILITIES SUPERVISOR Temperature 36.6 ??C (97.9 ??F) 05/17/2017 9:47 AM CUSTOMER FACILITIES SUPERVISOR Respiratory Rate - - Oxygen Saturation 96% 05/17/2017 9:47 AM CUSTOMER FACILITIES SUPERVISOR Inhaled Oxygen Concentration - - Weight 82.2 kg (181 lb 3.5 oz) 05/17/2017 9:47 AM CUSTOMER FACILITIES SUPERVISOR Height - - Body Mass Index 28.11 05/07/2015 12:27 PM CUSTOMER FACILITIES SUPERVISOR documented in this encounter Progress Notes Jolene Hare L.P.N. - 05/17/2017 9:45 AM CST Client here for URI symptoms which include reddened eyes. Been doing a lot of air travel lately. Excessive coughing which began 05/12/17. Cough is mostly dry but productive in the am's. Very thick sputum, green and black in color. States, it isn't bloody. VERY difficult to get out of chest. Client has not tried any Mucinex but is taking Dayquil and Nyquil to help alleviate the cough somewhat. Poor sleep last night due to cough until he took Nyquil. Hasn't checked his temp but hasn't felt as though he's had a fever. Slightly SOB. Now symptoms of cold are moving into head. Tickle in throat, not sore actually. Minimal nasal stuffiness. Some ear involvement and popping with blowing noise but again, URI and recent travel. Eye redness arrived on 05/14/17. Right one is painful and itchy. VERY matted upon waking this am. Gravely and scratchiness. Has been around no one with diagnosed conjunctivitis. OMER FACILITIES SUPERVISOR Karen Quiroga APRN, C.N.P. - 05/17/2017 9:45 AM CST SUBJECTIVE CHIEF COMPLAINT / REASON FOR VISIT Cough. Eye redness/crust. HISTORY OF PRESENT ILLNESS Crow is a very pleasant 71-year-old male who comes into the clinic today with concerns related toa slightly productive cough with ???greenish?? sputum for approximately 5-6 days. He reports his chest feels ???tight?? when he coughs, but he has not tried any qemp-pgi-iaonued Mucinex. He denies any known fever or chills. He reports intermittent shortness of breath with activity. He also reports ???redness and crust?? related to his right eye. He denies any right eye drainage. He reports a current medical status significant for follicular lymphoma and he receives chemotherapy every 2 months. Hedenies any heart palpitations or chest pain. He denies any headaches or dizziness. He reports his ears feel ???full?? . He is here today for further evaluation. He has no other concerns today. Brief Review of Systems: A brief review of systems was negative except for that mentioned in the history of present of illness. Current Outpatient Medications Medication Sig ??? amoxicillin (for_AMOXIL) 500 mg capsule Take 500 mg by mouth as needed (4 tabs one hr prior to dental work). ??? aspirin [address] tablet Take 81 mg by mouth daily. ??? raNITIdine (for_ZANTAC) 150 mg tablet Take 150 mg by mouth 2 (two) times a day. ??? azithromycin (for_ZITHROMAX) 250 mg tablet Take 500 mg (2 tablets) by mouth the first day then 250 mg (1 tablet) by mouth for 4 more days. ??? polymyxin B-trimethoprim (for_POLYTRIM) 10,000 unit- 1 mg/mL ophthalmic solution Administer 1 drop into the right eye 4 (four) times a day for 7 days. Allergies no known allergies OBJECTIVE PHYSICAL EXAM BP 136/71 (BP Location: Left arm, Patient Position: Sitting, Cuff Size: Regular) Pulse 89 Temp 36.6 ??C (Temporal) Wt 82.2 kg SpO2 96% BMI 28.11 kg/m?? Body mass index is 28.11 kg/m??. CONSTITUTIONAL: Alert and oriented. No acute distress. HEAD/EAR/NOSE/MOUTH/THROAT: Normocephalic/atraumatic. Canals patent, TMs normal. Oropharynx without lesion of mucosa. Pharyngeal rises symmetrically without exudate. CARDIOVASCULAR: Regular rate and rhythm. No murmurs, gallops or rubs noted. RESPIRATORY: Bilateral upper and lower lobes with appreciable rhonchi. No rales or wheezing. No accessory muscles of respiration noted. MUSCULOSKELETAL: No neurovascular compromise. No cyanosis, clubbing or edema. NEUROLOGICAL: Cranial nerves II-VII grossly intact and symmetric. He ambulates with a steady gait. PSYCHIATRIC: Cooperative. Affect appropriate. ASSESSMENT / PLAN #1 Cough I prescribed oral azithromycin to be taken as directed in the next 48-72 hours without symptom improvement. We discussed a potential viral illness at this time. He was instructed to increase his non caffeine oral fluid intake and maintain adequate rest. He was also instructed to use honey as needed related to his cough. #2 Conjunctivitis Acute Right I prescribed opthalmic drops to be taken as directed over the next 48-72 hours without symptom improvement. He was instructed to contact the clinic with worsening or no improvement in symptoms. All questions were answered. He left no acute distress. Karen Quiroga APRN, C.N.P. OMER FACILITIES SUPERVISOR documented in this encounter Plan of Treatment Upcoming Encounters Date Type Specialty Care Team Description 11/18/2021 Appointment Radiation Oncology Luiz Nagy M.D. [address] [place], [place] [phone] (Wo rk) documented as of this encounter Visit Diagnoses Diagnosis Cough Unspecified Type - Primary Conjunctivitis Acute Right documented in this encounter Care Teams Mold Insert Changer Relationship Specialty Start Date End Date Unassigned, Pcp PCP - General Family Medicine 05/17/17 10/02/21 documented as of this encounter
--- OUTSIDE RECORDS SUMMARY | 2021-11-18 09:36 | XMS_ITS | Encounter Summary ---
:1945 Author Organization [facility] Address [address] [place] [address] Care Team Providers Name Role Phone Unavailable Primary Care Provider Unavailable Encounter Details Date Type Department Care Team Description 12/11/2013 Hospital Encounter HX [facility] Jeremias Bazan III, M.D. [address] [place] [phone] (Wo rk) Social History Tobacco Use [...] Concentration - - Weight - - Height 172 cm (5' 7.72) 12/11/2013 7:46 AM CDT Body Mass Index - - documented in this encounter Miscellaneous Notes Miscellaneous - Shelly Bazan M.D. - 12/11/2013 12:19 PM CDT Normal Results Letter 11 December 2013 CROW OLCKWOOD [id number] [place] [id number] Dear CROW LOCKWOOD, I am pleased to report that your results from the following diagnostic test(s) are normal. Please follow up with us as you discussed during your visit or sooner if you have any concerns. If you have questions or concerns, please do not hesitate to call our office. Result Name Current Result Normal Range Glucose Fasting (mg/dL) 97 12/11/2013 70 - 99 Cholesterol (mg/dL) 177 12/11/2013 0 - 200 Trig (mg/dL) 80 12/11/2013 9 - 150 HDL (mg/dL) 46 12/11/2013 35 - 60 LDL Calculated (mg/dL) 115 12/11/2013 100 - 129 Chol/HDL Ratio 4 12/11/2013 PSA (ng/mL) 0.79 12/11/2013 0.00 - 5.40 Sincerely, SHELLY BAZAN [address] [place] [address] Electronic Signature Electronically Signed By: SHELLY BAZAN III, MD On: 11 December 2013 This document has images extracted. Source: [facility] POWERCHART Document Id: [id number] Electronically signed by Conversion, [facility] Joint Runner [id number] at 08/08/2016 3:12 AM CDT documented in this encounter Plan of Treatment Upcoming Encounters Date Type Specialty Care Team Description 11/18/2021 Appointment Radiation Oncology Luiz Nagy M.D. [address] [place], [place] [phone] (Wo rk) documented as of this encounter Procedures Procedure Name Priority Date/Time Associated Diagnosis Comme nts LIPID PANEL, S Routine 12/11/2013 7:54 AM Results for this CDT procedure are i n the results section. PROSTATE-SPECIFIC Routine 12/11/2013 7:54 AM Resu lts for this AG (PSA) SCRN, S CDT procedure a re in the results section. GLUCOSE, FASTING, Routine 12/11/2013 7:54 AM Resu lts for this S/P CDT procedure are i n the results section. documented in this encounter Results PSA (Prostate-Specific Antigen) Screen (12/11/2013 7:54 AM CDT) athologist Signature Prostate-Specif 0.79 0.00 - 5.40 POWERCHART ic Ag NGML Specimen (Source) Anatomical Collection Method Collection Time Re ceived Time Location / / Volume Laterality Blood 12/11/2013 7:54 AM CDT Shelly Bazan III, M.D. LAB BLOOD ADD-ON Performing Organization Address City/State/ZIP Code Phon e Number POWERCHART Lipid Panel (12/11/2013 7:54 AM CDT) P athologist Signature Cholesterol, 177 0 - 200 POWERCHART Total MGDL Comment: <200 mg/dL Desirable 200-239 mg/dL Borderline High >239 mg/dL High HX HDL 46 35 - 60 MGDL POWERCHART Comment: > 60 mg/dL Desirable 40 ? 60 mg/dL Low Risk <40 mg/dL Undesirable Triglycerides 80 9 - 150 MGDL POWERCHART Comment: <150 mg/dL Desirable 150-199 mg/dL Borderline High 200-499 mg/dL High > 499 Very High Calculated LDL 115 100 - 129 MGDL POWERCHART Total Cholesterol/HDL Ratio 4 PO WERCHART Specimen (Source) Anatomical Collection Method Collection Time Re ceived Time Location / / Volume Laterality Blood 12/11/2013 7:54 AM CDT Shelly Bazan III, M.D. LAB BLOOD ADD-ON Performing Organization Address City/State/ZIP Code Phon e Number POWERCHART Glucose, Fasting (12/11/2013 7:54 AM CDT) P athologist Signature Glucose, 97 70 - 99 POWERCHART Fasting, S MGDL Specimen (Source) Anatomical Collection Method Collection Time Re ceived Time Location / / Volume Laterality Blood 12/11/2013 7:54 AM CDT Shelly Bazan III, M.D. LAB BLOOD NON ADD-ON Performing Organization Address City/State/ZIP Code Phon e Number POWERCHART documented in this encounter Visit Diagnoses Not on filedocumented in this encounter
--- OUTSIDE RECORDS SUMMARY | 2021-11-18 09:36 | XMS_ITS | Encounter Summary ---
:1945 Author Organization [facility] Address [address] [place] [address] Care Team Providers Name Role Phone Elsewhere, Pcp Primary Care Provider Unavailable Encounter Details Date Type Department Care Team Description 10/03/2021 Clinical Communication Department of Miguel Noriega , Neurologic Surgery in [place], [place] [address] [facility] [address] [place] [phone] Social History Tobacco Use Types Packs/Day Years Used Date Smoking Tobacco: Former Smokeless Tobacco: Never Alcohol Use Standard Drinks/Week Comments Defer 0 (1 standard drink = 0.6 oz pure alcoho l) Sex Assigned at Date Recorded Not on file documented as of this encounter Miscellaneous Notes Telephone Encounter - Miguel Noriega M.D. - 10/03/2021 2:43 PM CDT ATC Call 76M, hx of lymphoma [facility] Takes an Aspirin 81mg QD but no other blood thinners. Has had a couple weeks of mental status changes, flat affect. No other neuro changes and reportedly intact on exam. P: Hold the Aspirin. Call neuro for further recs/treatment, he will likely need MRI brain w/wo contrast, CT C/A/P. If he can be managed as an outpatient, I would be happy to see him in clinic on Sunday after the imaging has been performed. documented in this encounter Plan of Treatment Upcoming Encounters Date Type Specialty Care Team Description 11/18/2021 Appointment Radiation Oncology Luiz Nagy M.D. [address] [place], [place] [phone] (Wo rk) documented as of this encounter Visit Diagnoses Not on filedocumented in this encounter Care Teams Group Home Supervisor Relationship Specialty Start Date End Date Elsewhere, Pcp PCP - General Internal Medicine 10/03/21 documented as of this encounter
--- OUTSIDE RECORDS SUMMARY | 2021-11-18 09:36 | XMS_ITS | Encounter Summary ---
:1945 [facility] Address [address] [place] [address] Care Team Providers Name Role Phone Elsewhere, Pcp Primary Care Provider Unavailable Reason for Visit Reason Comments Altered Mental Status Encounter Details Date Type Department Care Team Description 10/03/2021 Emergency [place] [facility] Ubaldo Khan Mass B rain (Primary Dx) Department D.O. [address] [facility] [address] [place] [address] [place], [place] [phone] Social History Tobacco Use Types Packs/Day Years Used Date Smoking Tobacco: Former Smokeless Tobacco: Never Alcohol Use Standard Drinks/Week Comments Defer 0 (1 standard drink = 0.6 oz pure alcoho l) Sex Assigned at Date Recorded Not on file documented as of this encounter Last Filed Vital Signs Vital Sign Reading Time Taken Comments Blood Pressure 142/84 10/03/2021 3:00 PM CDT Pulse 50 10/03/2021 3:00 PM CDT Temperature 36.1 ??C (97 ??F) 10/03/2021 11:43 AM CDT Respiratory Rate 16 10/03/2021 11:43 AM CDT Oxygen Saturation 97% 10/03/2021 3:00 PM CDT Inhaled Oxygen Concentration - - Weight 83 kg (182 lb 15.7 oz) 10/03/2021 11:48 AM CDT Height - - Body Mass Index 28.38 05/07/2015 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 - 10/03/2021 3:17 PM CDT Go directly to [facility] Emergency Department. You will then be evaluated by Neurology. documented in this encounter Medications at Time of Discharge Medication Sig Dispensed Refills Start Date End Date atorvastatin (LIPITOR) Take 0.5 tablets by 0 05/11 20 mg tablet mouth at bedtime. famotidine (PEPCID) 20 Take 20 mg by mouth 2 0 mg tablet (two) times a day. folic acid 1 mg tablet Take 1 mg by mouth 0 03/21 daily. magnesium oxide 400 mg Take 400 mg by mouth 0 magnesium tablet daily. multivitamin capsule Take 1 tablet by 0 6 mouth daily. acetaminophen (TYLENOL) Take 2 tablets (1,000 0 0 10/09/2021 500 mg tablet mg total) by mouth every 6 (six) [...] day. May restart 1 week after surgery levETIRAcetam (KEPPRA) Take 1 tablet (500 mg 12 tablet 0 500 mg tablet total) by mouth 2 (two) times a day for 12 doses. dexAMETHasone (DECADRON) Take 3 tablets (3 mg 48 tablet 0 0 10/09/2021 10/15/2021 1 mg tablet total) by mouth 4 (four) times a day for 2 days, THEN 2 tablets (2 mg total) 4 (four) times a day for 2 days, THEN 1 tablet (1 mg total) 4 (four) times a day for 2 days. apixaban (ELIQUIS) 5 mg Take 1 tablet (5 mg 60 tablet 0 07/202110/09/2021 tablet total) by mouth 2 (two) times a day. May restart 1 week after surgery aspirin [address] tablet Take 81 mg by mouth 0 10/04/2021 daily. metoprolol tartrate TAKE ONE-HALF TABLET 0 202010/04/2021 (LOPRESSOR) 50 mg tablet BY MOUTH TWICE A DAY predniSONE (DELTASONE) TAKE ONE TABLET BY 0 08/0210/04/2021 20 mg tablet MOUTH EVERY DAY FOR 14 DAYS -TAKE WITH FOOD -DO NOT STOP TAKING ABRUPTLY raNITIdine (for_ZANTAC) Take 150 mg by mouth 0 10/04/2021 150 mg tablet 2 (two) times a day. sulfamethoxazole-trimeth TAKE 1 TABLET BY 0 07/1510/04/2021 oprim (BACTRIM,SEPTRA) MOUTH EVERY DAY TO 400-80 mg per tablet PREVENT INFECTION WHILE ON HIGH DOSE PREDNISONE documented as of this encounter ED Notes Ubaldo Khan D.O. - 10/03/2021 11:51 AM CDT SUBJECTIVE CHIEF COMPLAINT/REASON FOR VISIT Altered Mental Status HISTORY OF PRESENT ILLNESS 76-year-old male with a history of medical problems including follicular lymphoma not currently on any treatment and atrial fibrillation on Eliquis who presents for evaluation of altered mental status. reports that he had a CT abdomen/pelvis on September 15, 2021, for follow-up in regards to his lymphoma. She states that ever since he had that scan he has had some progressive worsening mental status changes. states that he has been forgetting details that he normally is able to remember without difficulty. Has had some confusion. Also has had a change in his affect. Normal is quite cheerful,however has more of a flat affect now. Patient denies any associated headache. No nausea or vomiting. Is currently alert and oriented to person, place and time. Patient does follow through the [facility]. Zohreh home health nurse come every 2 weeks and she thought he should be evaluated today. [facility]. states that last week he didhave an episode of urinary incontinence which was new for him. He has not had any continued incontinence. No extremity weakness, numbness or tingling. Patient did have some bronchitis a month ago. Now has just his baseline cough, no worsening. No fevers or chills. No other complaints. REVIEW OF SYSTEMS Constitutional: No fevers or chills. Symptoms as in HPI. Skin: No rash or pruritus. Eye: No pain or vision changes. HENT: No sore throat. No nasal congestion. Respiratory: No shortness of breath. Symptoms as in HPI. Cardiovascular: No chest pain or palpitations. No syncope. Gastrointestinal: No abdominal pain, nausea or vomiting. No diarrhea or constipation. Genitourinary: No dysuria or hematuria. Symptoms as in HPI Musculoskeletal: No back pain. No joint pain. Neurologic: No headache or dizziness. No numbness or tingling. Symptoms as in HPI OBJECTIVE Initial Vitals Temperature Pulse Rate Heart Rate Resp Rate Blood Pressure SpO2 10/03/21 1143 10/03/21 1143 -- 10/03/21 1143 10/03/21 1143 10/03/21 1143 36.1 ??C (!) 48 16 (!) 151/47 97 % Pain Score 10/03/21 1145 0 - No pain PHYSICAL EXAMINATION Nursing note and vitals reviewed. General Appearance: Well-appearing. No acute distress. Skin: Color normal. No Rash. Warm/dry. Head: Normocephalic and atraumatic. ENT: Moist mucous membranes. Pupils are equal, round, and reactive to light and accommodation. EOMI.Posterior oropharynx clear. Neck: Nontender. Supple. Cardiovascular: Regular rate and rhythm. No murmur. Pulmonary/Chest: Airway patent. Breath sounds equal. Clear to auscultation. No respiratory distress. Abdominal: Non-tender. Soft. Normal bowel sounds. Musculoskeletal: Normal range of motion. Strength equal and intact bilaterally. No lower extremity edema. Neurologic: Alert and oriented to person, place and time. Normal sensation bilaterally. Mental status: Flat affect. ASSESSMENT/PLAN All critical diagnoses considered for patient presentation. Patient presents for evaluation of mental status changes. Symptoms progressively worsening over the past couple weeks. Bradycardic initially upon arrival, however heart rate normal on exam. Patient with a history of follicular lymphoma. [facility] Patient not currently on any chemotherapy. Patient no focal neurologic deficits on exam, however I do have concern for underlying brain metastasis with his mental status changes and his associated new flat affect. Will further evaluate with labs and CT head. Plan of care discussed with patient and family who are agreeable. ED Course as of 10/03/212226Oct 03, 2021 1210 ECG 12 Lead Sinus rhythm. Rate 74. No ST segment elevation. No ectopy. PVCs no longer present when compared to previous EKG from 08/15/2020. 1240 Hemoglobin: 13.2 1240 Hematocrit: 40.8 1240 Platelet Count: 265 1240 White Blood Cell Count: 7.9 1240 Neutrophils: 5.45 1252 Comprehensive Metabolic Panel(!): Potassium, P 4.0 Sodium, P 141 Chloride, P 104 Bicarbonate, P 23 Anion Gap, P 14 BUN (Blood Urea Nitrogen), P 21 Creatinine, P 1.25 eGFR-Black/ 65 eGFR Non-Black/ 56(!) Calcium, Total, P 9.5 Glucose, P 124 Protein, Total, P 6.8 Albumin, P 4.0 Aspartate Aminotransferase (AST), P 15 Alkaline Phosphatase, P 92 Alanine Aminotransferase (ALT), P 16 Bilirubin, Total, P 0.4 1316 DX Chest AP or PA and Lateral 2 Views Per radiologist report: Comparison 08/15/20. Port-A-Cath. Heart size normal. Postop changes right lung. Port-A-Cath. Negative for consolidative pneumonia. 1316 CT Head without IV Contrast Per radiologist report: 1. Probable mass in the left frontal lobe with associated vasogenic edema, local mass effect, and rightward shift at the level of the septum pellucidum by 8 mm. Findings could reflect lymphoma given patient history. Additional considerations include other primary or metastatic brain lesions or intracranial abscess. Recommend MRI to better characterize. Will contact the [facility] for further evaluation and treatment. Oncologist that patient had recently seen is Dr. Sanford. 1415 No current beds at the [facility]. Will contact [facility] and discuss with Neurosurgery. Patient and family updated and agreeable. 1443 Discussed with Neurosurgery, Dr. Rollins. He recommends discussing with Neurology for further evaluation and recommendations. If patient would be managed as an outpatient, he would be able to see him on Sunday in the clinic. 1457 Blood: Negative 1457 Nitrite, U: Negative 1457 Leukocyte Esterase: Negative 1505 Discussed with neurology, Dr. Edwards, he reviewed images and recommends transfer to the [facility] Emergency Department for evaluation by Neurology. Accepting physician, Dr. Figueredo. Patient to travel via private vehicle. Neurology does not recommend steroids at this time. Plan of care discussed with patient and family who are agreeable. Patient to go straight to [facility] Emergency Department. Patient's will drive him. Final Diagnoses: as of 10/03/212226 Mass Brain Ubaldo Khan D.O. 10/03/212227 documented in this encounter Plan of Treatment Upcoming Encounters Date Type Specialty Care Team Description 11/18/2021 Appointment Radiation Oncology Luiz Nagy M.D. [address] [place] [address] [phone] (Wo rk) documented as of this encounter Procedures Procedure Name Priority Date/Time Associated Comments Diagnosis DX CHEST AP OR PA RAD - Semiurgent 10/03/2021 12:40 Re sults for AND LATERAL 2 VIEWS (Fast; most ED PM CDT this p rocedure patients; some are in the inpatients) results section. CT HEAD WITHOUT IV RAD - Semiurgent 10/03/2021 12:29 R esults for CONTRAST (Fast; most ED PM CDT this procedur e patients; some are in the inpatients) results section. CBC WITH STAT 10/03/2021 12:17 Results for DIFFERENTIAL, B PM CDT this procedu re are in the results section. COMPREHENSIVE STAT 10/03/2021 12:17 Results fo r METABOLIC PANEL, S/P PM CDT this pr ocedure are in the results section. URINALYSIS WITH STAT 10/03/2021 12:15 Results for MICROSCOPIC PM CDT this procedure are in the results section. ECG STAT 10/03/2021 12:06 Results for PM CDT this procedure are in the results section. documented in this encounter Results DX Chest AP or PA and Lateral [...] right lung. Port-A-Cath. Negative for consolidative pneumonia. U[facility]do [facility]E [facility]ING CT Head without IV Contrast (10/03/2021 12:29 PM CDT) Anatomical Region Laterality Modality Head, Neuroradiology RST LOS, Neuroradiology ARZ LOS, N/A Computed Tomography Neuroradiology FLA LOS Specimen (Source) Anatomical Collection Method Collection Time Re ceived Time Location / / Volume Laterality 10/03/2021 12:28 PM CDT Impressions 10/03/2021 1:13 PM CDT 1. ??Probable mass in the left frontal lobe with associated vasogenic edema, local mass effect, and rightward shift at the level of the sept um pellucidum by 8 mm. Findings could reflect lymphoma given patient history. Additional consideratio ns include other primary or metastatic brain lesions or intracranial abscess. Recommend MRI to [place] characterize. Narrative 10/03/2021 1:13 PM CDT EXAM: CT HEAD WITHOUT IV CONTRAST COMPARISON: None FINDINGS: Suspected mass in the left frontal lobe with hyperdense rim measuring 2.5 cm with adjacent vasogenic edema of the left frontal lobe extending towards the corpus callosum. There is associated mass effect with local sulcal effacement and rightward shift at the level of the septum pellucidum by approximately 8 mm. Recommend follow-up MRI without and with contrast to better characterize the above findings. Small mucous retention c ysts or polyps involving the left sphenoid sinus and right ethmoid air cells. The mastoid air cells are well aerated. No acute osseous abnormality. Result discussed with UBALDO KHAN on 1:09 PM.. Procedure Note Kye Renae M.D. - 10/03/2021Forma tting of this note might be different from the original. EXAM: CT HEAD WITHOUT IV CONTRAST COMPARISON: None FINDINGS: Suspected mass in the left frontal lobe with hyperdense rim measuring 2.5 cm with adjacent vasogenic edema of the left frontal lobe extending towards the corpus callosum. There is associated mass effect with local sulcal effacement and rightward shift at the level of the septum pellucidum by approximately 8 mm. Recommend follow-up MRI without and with contrast to better characterize the above findings. Small mucous retention c ysts or polyps involving the left sphenoid sinus and right ethmoid air cells. The mastoid air cells are well aerated. No acute osseous abnormality. Result discussed with UBALDO KHAN on 1:09 PM.. IMPRESSION: 1. Probable mass in the left frontal lob e with associated vasogenic edema, local mass effect, and rightward shift at the level of the sept um pellucidum by 8 mm. Findings could reflect lymphoma given patient history. Additional consideratio ns include other primary or metastatic brain lesions or intracranial abscess. Recommend MRI to [facility] os[facility] characterize. Ubaldo Khan D.O. IMG CT PROCEDURES (ABNORMAL) Comprehensive Metabolic Panel (10/03/2021 12:17 PM [...] CDT eGFR-Black/Afric 65 >=60 10/03/2021 [facility] an Serbian mL/min/BSA 12:50 PM CDT Comment: ----ADDITIONAL INFORMATION---- Estimated GFR calculated using the 2009 CKD_EPI creatinine equation. eGFR Non-Black/ 56 (L) >=60 mL/min/BSA 10/03/2021 12:50 PM CDT [facility] Serbian Comment: ----ADDITIONAL INFORMATION---- Estimated GFR calculated using [...] 10/03/2021 Venous) PM CDT 12:23 PM CDT Ubaldo Khan D.O. LAB BLOOD ADD-ON Performing Organization Address City/State/ZIP Code Phon e Number [facility]- [address] [place], [place] [address] [facility] [place] [address] System in [place] Nancy Jese Wetzel CBC with Differential, Blood (10/03/2021 12:17 PM CDT) P athologist Signature Hemoglobin 13.2 13.2 - 10/03/2021 [facility] 16.6 g/dL 12:35 PM CDT Hematocrit 40.8 38.3 - 10/03/2021 [facility] 48.6 % 12:35 PM CDT Erythrocytes 4.38 4.35 - 10/03/2021 [facility] 5.65 12:35 PM CDT x10(12)/L MCV 93.2 78.2 - 10/03/2021 [facility] 97.9 fL 12:35 PM CDT RBC Distrib Width 13.8 11.8 - 10/03/2021 [facility] 14.5 % 12:35 PM CDT Platelet Count 265 135 - 317 10/03/2021 [facility] x10(9)/L 12:35 PM CDT Leukocytes 7.9 3.4 - 9.6 10/03/2021 [facility] x10(9)/L 12:35 PM CDT Neutrophils 5.45 1.56 - 10/03/2021 [facility] 6.45 12:35 PM CDT x10(9)/L Lymphocytes 1.64 0.95 - 10/03/2021 [facility] 3.07 12:35 PM CDT x10(9)/L Monocytes 0.64 0.26 - 10/03/2021 [facility] 0.81 12:35 PM CDT x10(9)/L Eosinophils 0.11 0.03 - 10/03/2021 [facility] 0.48 12:35 PM CDT x10(9)/L Basophils 0.04 0.01 - 10/03/2021 [facility] 0.08 12:35 PM CDT x10(9)/L Specimen Anatomical Collection Method Collection Time Receive d Time (Source) Location / / Volume Laterality Blood (Blood, 10/03/2021 12:17 10/03/2021 Venous) PM CDT 12:23 PM CDT Ubaldo Khan D.O. LAB BLOOD ADD-ON Performing Organization Address City/State/ZIP Code Phon e Number [facility]- [address] [place], [place] [address] [place] [address] System in [place] [address] [place] Urinalysis with Microscopic: Urine, Midstream (10/03/2021 12:15 PM CDT) [facility] Signature Source Urine, Urine, 10/03/2021 [facility] [...] 8.0 10/03/2021 2:56 PM CDT [facility] Specific Desdemona 1.019 1.001 - 1.035 10/03/2021 2:56 PM [...] 10/03/2021 2:52 Midstream) PM CDT PM CDT Ubaldo Khan D.O. LAB URINE ORDERABLES Performing Organization Address City/State/ZIP Code Phon e Number [facility]- [address] [place] [address] [facility] [facility] [place] [address] System in [place] [address] ECG 12 Lead (10/03/2021 12:06 PM CDT) P athologist Signature Ventricular Rate 74 BPM MUSE ECG/Min NC Interval 152 ms MUSE QRSD Interval 90 ms MUSE QT Interval 380 ms MUSE QTC Interval 421 ms MUSE P Tracy 65 degrees MUSE R Tracy 48 degrees MUSE T Wave Tracy 63 degrees MUSE Specimen Anatomical Collection Method Collection Time Receive d Time (Source) Location / / Volume Laterality 10/03/2021 12:06 10/03/2021 8:06 PM CDT PM CDT Impressions MUSE - 10/03/2021 8:06 PM CDT Normal sinus rhythm Nonspecific T wave abnormality When compared with ECG of 15-AUG-2020 21 :14, Premature ventricular complexes are no l onger present Reviewed by SAW Camarena Narrative This result has an attachment that is no t available. Procedure Note Brad Biggs M.D. - 10/03/2021 IMPRESSION: Normal sinus rhythm Nonspecific T wave abnormality When compared with ECG of 15-AUG-2020 21 :14, Premature ventricular complexes are no l onger present Reviewed by SAW Camarena Ubaldo Khan D.O. ECG ORDERABLES Performing Organization Address City/State/ZIP Code Phon e Number MUSE MUSE NA documented in this encounter Visit Diagnoses Diagnosis Mass Brain - Primary documented in this encounter Administered Medications Inactive Administered Medications - up to 3 most recent administrations Medication Order MAR Action Action Date Dose Rate Site sodium chloride 0.9 % injection 2-10 mL 2-10 mL, intravenous, As needed, line care, Starting o n Sun10/03/21 at 1315 documented in this encounter Active and Recently Administered Medications Times are shown in CDT. PRN Medication Order 10/01/2021 10/02/2021 10/03/2021 sodium chloride 0.9 % injection 2-10 mL(Linked Group 1) 2-10 mL, intravenous, As needed, line care, Starting on 10/03 at 1315 Linked Groups Order Group 1: Place peripheral IV: No upper extremity site restrictions (COMPLETED) Upper extremity site restriction: No upp er extremity site restrictions
Quantity of PIVs requested: One
STAT, Once, On Sun10/03/21 at 1316, For 1 occurrence And sodium chloride 0.9 % injection 2-10 mLJump to med 2-10 mL, intravenous, As needed, line ca re, Starting on Sun10/03/21 at 1315 documented in this encounter Care Teams Maintenance Team Member Relationship Specialty Start Date End Date Elsewhere, Pcp PCP - General Internal Medicine 10/03/21 documented as of this encounter
--- OUTSIDE RECORDS SUMMARY | 2021-11-18 09:37 | XMS_ITS | Encounter Summary ---
:1945 [facility] Address [address] [place] [address] Care Team Providers Name Role Phone Unavailable Primary Care Provider Unavailable Encounter Details Date Type Department Care Team Description 11/30/2013 Hospital Encounter HX [facility] ED Chris Gray M.D. [address] [place] [address] [phone] (Wo rk) Social History Tobacco Use Types Packs/Day Years Used Date Smoking Tobacco: Never Assessed Sex Assigned at Date Recorded Not on file documented as of this encounter Last Filed Vital Signs Vital Sign Reading Time Taken Comments Blood Pressure 137/68 11/30/2013 9:45 AM CDT Pulse 68 11/30/2013 9:45 AM CDT Temperature - - Respiratory Rate 16 11/30/2013 9:45 AM CDT Oxygen Saturation - - Inhaled Oxygen Concentration - - Weight - - Height 172 cm (5' 7.72) 11/30/2013 9:45 AM CDT Body Mass Index - - documented in this encounter Discharge Summaries Arlene Wheatley R.N. - 11/30/2013 2:09 PM CDT ED Discharge Instructions [address] [id number] Name: ANDER LOCKWOOD Date of : 1945 12:00 PM Visit Date: 11/30/2013 7:57 AM [facility] Number: [id number] Address: [address] [place] [phone] Primary Care Provider: SHELLY FERGUSON III, MD IMPORTANT: [facility] in [place] would like to thank you for allowing us to assist you with your healthcare needs. The following includes patient education materials and informationregarding your injury/illness. Diagnosis: Dehydration; Dizziness Follow-Up Instructions: With: Address: When: Follow up with primary care provider Within 3 - 5 days Comments: For recheck If symptoms worsen Your Upcoming Appointments: Date Time Location Provider 12/02/2013 13:00 [facility] Kimberly Omalley 12/10/2013 09:00 [facility] Nurse Coordin[facility] Patient Education Materials: [id number] MEDICATION: MECLIZINE Meclizine (brand name: Antivert, Bonine, Dramamine, Ted-L-Tabs, Medi-Meclizine) is used to prevent dizziness, vertigo, and motion sickness. DIRECTIONS FOR USE: To prevent motion sickness, take the first dose 1 hour before travel. You may take this medicine with or without food. Repeat the dose 1 or 2 times a day or as directed by your doctor. If you are taking the chewable tablets, chew them thoroughly before swallowing. For control of dizziness and other conditions, this medicine works best when taken at regular intervals. After the first few days of treatment, once your symptoms improve, you may be able to take the medicine on an as needed basis. Discuss with your doctor. WHAT TO WATCH FOR: POSSIBLE SIDE EFFECTS: Drowsiness or fatigue (Reduce the dosage or wait longer between doses). Dry mouth (Chew gum or use a peppermint or other hard candy). Vision changes or problems with urination (Contact your doctor). ALLERGIC REACTION: Rash, itching, swelling, trouble breathing or swallowing (Contact your doctor or return to this facility promptly). MEDICAL CONDITIONS: Before starting this medicine, be sure your doctor knows if you have any of the following conditions: ?? Glaucoma ?? Prostate enlargement ?? Breathing problems ?? Seizures ?? or DRUG INTERACTION: May cause excess drowsiness when taken with alcohol, muscle relaxant, sedative, pain medicine, anti-seizure medicines, medicines for sleep, or other antihistamines. Use with caution. Before starting this medicine, be sure your doctor knows if you are taking any of the following drugs: pramlintide, drugs with similar side effects (other anticholinergic drugs such as atropine, tricyclic antidepressants, benztropine, scopolamine). WARNING: ?? Do not drive, ride a bicycle, or operate dangerous equipment while taking this medicine until youknow how it will affect you. [NOTE: This information topic may not include all directions, precautions, medical conditions, drug/food interactions, and warnings for this drug. Check with your doctor, nurse, or pharmacist for any questions that you may have.] ?? [id number] [facility], [address] [place] [address], [place] [id number]. All rights reserved. This information is not intended as a substitute for professional medical care. Always follow your healthcare professional's instructions. [id number] VERTIGO [Unknown Cause] The inner ear is located behind the middle ear. It is part of the balance center of your body. Disease of the inner ear causes vertigo -- a false feeling of motion. It feels as if you or the room is spinning. A vertigo attack may cause sudden nausea, vomiting and heavy sweating. Severe vertigo causes a loss of balance and can cause you to fall. During vertigo, small head movements and changes in body position will often make the symptoms worse. The causes of vertigo include: ?? Inflammation of the inner ear ?? Disease of the nerves to the inner ear ?? Movement of calcium particles in the inner ear ?? Poor blood flow to the balance centers of the brain An episode of vertigo may last seconds, minutes or hours. Once you are over the first episode, it may never return. However, sometimes symptoms may recur off and on over several weeks or longer, depending on the cause. There may be ringing in the ears or hearing loss, which may be temporary or permanent. HOME CARE: 1. If symptoms are severe, rest quietly in bed. Change positions very slowly. There is usually one position that will feel best, such as lying on one side or lying on your back with your head slightly raised on pillows. 2. Do not drive or work with dangerous machinery for one week after symptoms go away, in case the symptoms suddenly return. 3. Take medicine as prescribed to relieve your symptoms. Unless another medicine was prescribed for nausea, vomiting and vertigo, you may use [id number] motion sickness pills, such as meclizine (Bonine, Bonamine, Antivert) or dimenhydrinate (Dramamine). FOLLOW UP with your doctor or as directed by our staff. Tell the doctor if your ears keep ringing, or if your hearing does not return to normal. GET PROMPT MEDICAL ATTENTION if any of the following occur: ?? Vertigo gets worse and is not controlled by medicine prescribed ?? Repeated vomiting not relieved by medicine prescribed ?? Increased weakness or fainting ?? Severe headache or unusually drowsy or confused ?? Weakness of an arm or leg or one side of the face Difficulty with speech or vision ?? [phone] [facility], [address] [place] [address], [place] [address]. All rights reserved. This information is not intended as a substitute for professional medical care. Always follow your healthcare professional's instructions. ED Tests and Procedures: Order Status Basic Metabolic Panel Completed CBC (includes Auto Differential) Completed Magnesium Level Completed Urinalysis with Microscopic Completed XR Chest 2 Views Completed Automated Diff-5 Part Completed Discharge Prescriptions & Home Medications: Medication/Strength Dose Route Frequency Indications/Special Instructions/Comments/Notes ranitidine (Zantac 75) 75 mg Oral once a day Comment: Attention: If you have any medications at home not on this list, DO NOT take them until you contact your provider for clarification. Give a copy of your medication list to your primary care provider. Update your medication list any time medications or doses are changed and carry your medication list at all times in case of emergency. Medication Reconciliation: Reconciliation is a process of identifying the most accurate list of all medications a patient is taking - including name, dosage, frequency, and route - and using this list to provide to the patient information about how to take those medications. ANDER LOCKWOOD or mauricio has reviewed the home medications you have listed with us. Review the following instructions: You have NOT received any prescriptions and you have told us you are not currently taking any home medications You have NOT received any prescriptions. You have been provided a discharge medications list and you may CONTINUE taking your medications as previously prescribed by your regular providers. You have received the listed prescriptions and BEGIN all listed prescriptions as directed. Since you have listed no home medications, please check with your family doctor if you are taking any other medications. You have received the listed prescriptions and BEGIN all listed prescriptions as directed. Youhave been provided a discharge medications list and you may CONTINUE all home medications as previously prescribed by your regular providers. You have received the listed prescriptions and BEGIN all listed prescriptions as directed. Youhave been provided a discharge medications list. The following CHANGES have been made to your medication list; Otherwise, CONTINUE all home medications as previously prescribed by your regular provider. IMPORTANT: We examined and treated you today on an emergency basis only. This was not a substitute for, or an effort to provide, complete medical care. In most cases, you must let your doctor check youagain. Tell your doctor about any new or lasting problems. We cannot recognize and treat all injuries or illnesses in one Emergency Department visit. If you had special tests, such as EKG's or X- rays, we will review them again within 24 hours. We will call you if there are any new suggestions. Please follow the instructions above carefully. If you are being transferred to another facility your followup plan of care will be determined by the receiving facility. If you are a patient that is being discharged from the Emergency Department after receiving narcotics or other medications that may impair your judgment you may be a risk to yourself or others if you operate a motor vehicle. We recommend that you arrange a ride home with a responsible libertarian. I, ANDER LOCKWOOD , or responsible libertarian have received this information and my questions have been answered. I have discussed any challenges I see with this plan with the nurse or physician. Patient Signature or Responsible Alliance Party/Relationship Date Time Provider Signature Date Time Medication Reconciliation: Reconciliation is a process of identifying the most accurate list of all medications a patient is taking - including name, dosage, frequency, and route - and using this list to provide to the patient information about how to take those medications. ANDER LOCKWOOD or designee has reviewed the home medications you have listed with us. Review the following instructions: You have NOT received any prescriptions and you have told us you are not currently taking any home medications You have NOT received any prescriptions. You have been provided a discharge medications list and you may CONTINUE taking your medications as previously prescribed by your regular providers. You have received the listed prescriptions and BEGIN all listed prescriptions as directed. Since you have listed no home medications, please check with your family doctor if you are taking any other medications. You have received the listed prescriptions and BEGIN all listed prescriptions as directed. Youhave been provided a discharge medications list and you may CONTINUE all home medications as previously prescribed by your regular providers. You have received the listed prescriptions and BEGIN all listed prescriptions as directed. Youhave been provided a discharge medications list. The following CHANGES have been made to your medication list; Otherwise, CONTINUE all home medications as previously prescribed by your regular provider. IMPORTANT: We examined and treated you today on an emergency basis only. This was not a substitute for, or an effort to provide, complete medical care. In most cases, you must let your doctor check youagain. Tell your doctor about any new or lasting problems. We cannot recognize and treat all injuries or illnesses in one Emergency Department visit. If you had special tests, such as EKG's or X- rays, we will review them again within 24 hours. We will call you if there are any new suggestions. Please follow the instructions above carefully. If you are being transferred to another facility your followup plan of care will be determined by the receiving facility. If you are a patient that is being discharged from the Emergency Department after receiving narcotics or other medications that may impair your judgment you may be a risk to yourself or others if you operate a motor vehicle. We recommend that you arrange a ride home with a responsible libertarian. MANDIE Garcia WILLIAM , or responsible libertarian have received this information and my questions have been answered. I have discussed any challenges I see with this plan with the nurse or physician. Patient Signature or Responsible Alliance Party/Relationship Date Time Provider Signature Date Time This document has images extracted. Please consider using [employer] for all your patient education needs. Source: [employer] Document Id: [id number] Arlene Wheatley R.N. - 11/30/2013 2:09 PM CDT ED Depart Summary [facility] Emergency Department Clinical Discharge Summary PERSON INFORMATION Name ANDER LOCKWOOD Age 68 Years 1945 12:00 PM Sex Male Language Mosotho PCP SHELLY FERGUSON III, MD Marital Status Unknown N [id number] Visit Id Visit Reason Dizziness; dizzy Specialty Enc Type Emergency Med Service Emergency Medicine Referred by Track Group [facility] ED Discharge 11/30/2013 1:28 PM Tracking Id [id number] Checkout 11/30/2013 12:24 PM Checkin 11/30/2013 7:57 AM Acuity 4 -Less Urgent Dispo Type * Discharged to Home or Self Care Arrival 11/30/2013 7:57 AM Reg Status Complete LOS 000 04:27 Address: [address] [place] [phone] Comment: PROVIDER INFORMATION Provider Role Provider Contact Time ANITHA GRAY MD ED Provider 11/30/13 08:04 TOMAS BERNARD VOLTMETER OPERATOR Nurse 11/30/13 08:04 DIAGNOSIS Dehydration; Dizziness Comment: PATIENT EDUCATION INFORMATION Instructions: MECLIZINE; VERTIGO, Unspecified Follow up: With: Address: When: Follow up with primary care provider Within 3 - 5 days Comments: For recheck If symptoms worsen Source: [employer] Document Id: [id number] documented in this encounter ED Notes Tomas Bernard R.N. - 11/30/2013 11:03 AM CDT ED Pain Assessment ED Pain Assessment Entered On: 11/30/2013 11:03 CDT Performed On: 11/30/2013 11:03 CDT by TOMAS BERNARD RN Pain Assessment Pain Symptoms : No TOMAS BERNARD RN - 11/30/2013 11:03 CDT Source: [facility] [employer] Document Id: [id number] CDT!3 Tomas Bernard R.N. - 11/30/2013 11:03 AM CDT ED Disposition Summary ED Disposition Summary Entered On: 11/30/2013 11:03 CDT Performed On: 11/30/2013 11:03 CDT by TOMAS BERNARD RN ED Disposition Summary Printed Discharge Instructions Given to Patient : Yes Patient Status at Discharge from ED : Improved TOMAS BERNARD RN - 11/30/2013 11:03 CDT Source: [employer] Document Id: [id number] CDT!4 Tomas Bernard R.N. - 11/30/2013 11:02 AM CDT ED Treatments and Procedures ED Treatments and Procedures Entered On: 11/30/2013 11:02 CDT Performed On: 11/30/2013 11:02 CDT by TOMAS BERNARD RN Peripheral IV Peripheral IV Assess/Intervention Grid Peripheral IV #1 IV Activity : Discontinue Number of Attempts : 1 Date of Insertion : 11/30/2013 CDT IV Site : Hand Laterality : Left TOMAS BERNARD RN - 11/30/2013 11:02 CDT Source: [employer] Document Id: [id number] CDT!9 Tomas Bernard R.N. - 11/30/2013 9:06 AM CDT ED Treatments and Procedures ED Treatments and Procedures Entered On: 11/30/2013 9:06 CDT Performed On: 11/30/2013 9:06 CDT by TOMAS BERNARD RN Peripheral IV Peripheral IV Assess/Intervention Grid Peripheral IV #1 IV Activity : Start Number of Attempts : 1 Date of Insertion : 11/30/2013 CDT IV Site : Hand Laterality : Left Infiltration Score : 0 Phlebitis Score : 0 TOMAS BERNARD RN - 11/30/2013 9:06 CDT [facility] Document Id: [id number] CDT!11 Anitha Gray M.D. - 11/30/2013 8:32 AM CDT Dizziness Patient: ANDER LOCKWOOD Age: 68 years Sex: Male : 1945 Author: ANITHA GRAY MD Attachments: None Associated Diagnosis: Dizziness; Dehydration Basic Information Time seen: Immediately upon arrival. History source: Patient. Arrival mode: Private vehicle. History limitation: None. Additional information: Chief Complaint from Nursing Triage Note : Chief Complaint Description 11/30/2013 8:04 CDT Chief Complaint Description patient brought in by with dizziness since Sunday . History of Present Illness The patient presents with dizziness and vertigo. The onset was 4 days ago, abrupt and triggered by standing. The course/duration of symptoms is constant and fluctuating in intensity. The character of symptoms is spinning and off- balance, not falling and not presyncope. The degree at present is moderate. There are exacerbating factors including changing position, turning head and standing but not lying down or exertion. There are relieving factors including lying down and rest. Risk factors consist of recent vigorous outdoor work. Prior episodes: none. Therapy today: none. Associated symptoms: none. Review of Systems Constitutional symptoms: Negative except as documented in HPI, but no fever, no chills or no weakness. Skin symptoms: Negative except as documented in HPI. ENMT symptoms: Negative except as documented in HPI. Respiratory symptoms: Negative except as documented in HPI. Cardiovascular symptoms: Negative except as documented in HPI, but no chest pain, no palpitations, no tachycardia, no syncope or no diaphoresis. Gastrointestinal symptoms: Vomiting, but no nausea. Genitourinary symptoms: No dysuria. Musculoskeletal symptoms: Negative except as documented in HPI. Neurologic symptoms: Negative except as documented in HPI. Psychiatric symptoms: Negative except as documented in HPI. Endocrine symptoms: No polyuria. Additional review of systems information: All other systems reviewed and otherwise negative. Health Status Allergies: Allergic Reactions (Selected) NKA. Medications: (Selected) Inpatient Medications Ordered Sodium Chloride 0.9% 1,000 mL: 1,000 mL/hr, IV Zofran: 4 mg, 2 mL, IV Push, Once meclizine: 50 mg, PO, Once methylPREDNISolone: 125 mg, IV Push, Once Documented Medications Documented Zantac 75: 75 mg, PO, Daily. Past Medical/ Family/ Social History Medical history: No active or resolved past medical history items have been selected or recorded.. Surgical history: No active procedure history items have been selected or recorded.. Family history: No family history items have been selected or recorded.. Social history: Reviewed as documented in chart, Tobacco use: Denies, Drug use: Denies, Occupation: Retired, Family/social situation: , intact family. Problem list: No problem items selected or recorded.. Physical Examination Vital Signs: Vital Signs 11/30/2013 8:06 CDT Temperature Core 36.8 DegC Peripheral Pulse Rate 69 /min Respiratory Rate 16 /min SpO2 96 % Systolic Blood Pressure 129 mmHg Diastolic Blood Pressure 64 mmHg Mean Arterial Pressure 86 mmHg BP Location Left upper , oxygen saturation. General: Alert. Skin: Warm, dry, intact and no pallor. Head: Normocephalic and atraumatic. Eye: Pupils are equal, round and reactive to light, normal conjunctiva, vision grossly normal and nystagmus Rt > Lt with lateral gaze. Ears, nose, mouth and throat: Oral mucosa moist. Cardiovascular: Regular rate and rhythm, Normal peripheral perfusion and No edema. Respiratory: Lungs are clear to auscultation, respirations are non-labored, breath sounds are equal and Symmetrical chest wall expansion. Chest wall: No tenderness and No deformity. Back: Nontender and Normal alignment. Musculoskeletal: Normal ROM. normal strength. no tenderness. no swelling. Gastrointestinal: Soft, Non distended and Normal bowel sounds. Genitourinary Neurological: Alert and oriented to person, place, time, and situation, No focal neurological deficit observed, CN II-XII intact, normal sensory observed, normal motor observed and normal speech observed. Lymphatics: No lymphadenopathy. Psychiatric: Cooperative, appropriate mood & affect and normal judgment. Medical Decision Making Differential Diagnosis:Dizziness, vertigo, syncope, dysrhythmia, hypotension, hyperglycemia, dehydration, labyrinthitis, Meniere's disease, anemia. Documents reviewed:Emergency department nurses' notes. undraped artist model:Normal sinus rhythm. Reexamination/ Reevaluation Vital signs results included from flowsheet : Vital Signs 11/30/2013 8:06 CDT Temperature Core 36.8 DegC Peripheral Pulse Rate 69 /min Respiratory Rate 16 /min SpO2 96 % Systolic Blood Pressure 129 mmHg Diastolic Blood Pressure 64 mmHg Mean Arterial Pressure 86 mmHg BP Location Left upper Course: unchanged. Pain status: unchanged. Assessment: exam unchanged, postition vertigo, paroxsymal, with dehydration based on concentrated urine.. Interventions: IV solumedrol, fluids in ED. Impression and Plan Diagnosis Dizziness (Discharge, Emergency medicine, Medical) Dehydration (Discharge, Emergency medicine, Medical) Electronically Signed By: ANITHA GRAY MD On: 11/30/2013 10:24 AM Modified by and Electronically Signed by: ANITHA GRAY MD On: 11/30/2013 10:24 AM Source: [facility] [employer] Document Id: [id number]} Tomas Bernard, R.N. - 11/30/2013 8:09 AM CDT ED Treatments and Procedures ED Treatments and Procedures Entered On: 11/30/2013 8:12 CDT Performed On: 11/30/2013 8:09 CDT by TOMAS BERNARD RN Orthostatics Systolic Blood Pressure Supine : 132 mmHg Diastolic Blood Pressure Supine : 67 mmHg Pulse Supine : 72 /min Patient Response Supine : No response Systolic Blood Pressure Sitting : 143 mmHg Diastolic Blood Pressure Sitting : 71 mmHg Pulse Sitting : 76 /min Patient Response Sitting : Dizziness Systolic Blood Pressure Standing : 138 mmHg Diastolic Blood Pressure Standing : 76 mmHg Pulse Standing : 80 /min Patient Response Standing : Dizziness BP Location Orthostatics : Left upper extremity Blood Pressure Cuff Size Orthostatics : Regular TOMAS BERNARD RN - 11/30/2013 8:09 CDT [facility] Document Id: [id number] CDT!16 Tomas Bernard R.N. - 11/30/2013 8:06 AM CDT ED Primary Assessment Document Has Been Updated ED Primary Assessment Entered On: 11/30/2013 8:08 CDT Performed On: 11/30/2013 8:06 CDT by TOMAS BERNARD RN Reason For Visit (As Of: 11/30/2013 08:08:42 CDT) Diagnoses(Active) Dizziness Date: 11/30/2013 ; Diagnosis Type: Reason For Visit ; Confirmation: Complaint of ; Clinical Dx: Dizziness ; Classification: Medical ; Clinical Service: Emergency medicine ; Code: PNED ; Probability: 0 ; Diagnosis Code: [id number] Triage Mode of Arrival ED : Private vehicle Track : Medical Languages : Mosotho Vital Signs Assessed : Yes Is Patient Female and 13-50 no hysterectomy : No Treatments Prior to Arrival : None TOMAS BERNARD RN - 11/30/2013 8:06 CDT Vital Signs Temperature Core : 36.8 DegC(Converted to: 98.2 DegF) Peripheral Pulse Rate : 69 /min Respiratory Rate : 16 /min Systolic Blood Pressure : 129 mmHg Diastolic Blood Pressure : 64 mmHg NIBP Mean : 86 mmHg BP Location : Left upper extremity SpO2 : 96 % Oxygen Therapy : Room air Height : 172 cm(Converted to: 5 ft 8 inch(es)) Estimated Weight : 76 kg Estimated Weight Conversion to Pounds : 167.2 lb TOMAS BERNARD RN - 11/30/2013 8:06 CDT Pain Assessment Pain Symptoms : No TOMAS BERNARD RN - 11/30/2013 8:06 CDT Respiratory Airway : Patent Respirations : Unlabored Respiratory Pattern : Regular Oxygen Therapy : Room air TOMAS BERNARD RN - 11/30/2013 8:06 CDT Cardiovascular Heart Rhythm : Regular Skin Color : Normal for ethnicity Skin Description : Dry Skin Temperature : Warm TOMAS BERNARD RN - 11/30/2013 8:06 CDT Neurological Last Well Time Known : Not applicable Level of Consciousness : Alert Orientation : Oriented x 3 Characteristics of Speech : Clear Neuro Patient Stated Symptoms : Dizziness Gait : Unsteady Loss of Consciousness : No Neuro Detailed Assessment : Yes TOMAS BERNARD RN - 11/30/2013 8:06 CDT Neuro Detailed KITTY : Yes Facial Symmetry : Normal Extremity Movement : Equal Extremity Sensation : Normal Speech Characteristics : Normal TOMAS BERNARD RN - 11/30/2013 8:06 CDT ED Psychosocial Affect/Behavior : Calm, Cooperative, Appropriate Domestic Abuse Concerns : None TOMAS BERNARD RN - 11/30/2013 8:06 CDT Gastrointestinal Nutrition ED : Adequate TOMAS BERNARD RN - 11/30/2013 8:06 CDT Musculoskeletal Fall Prevention Education Provided : Yes TOMAS BERNARD RN - 11/30/2013 8:06 CDT Social Habits Tobacco Use/Currently Using : No Smoking Status : Former smoker TOMAS BERNARD RN - 11/30/2013 8:06 CDT Alcohol Use Grid Alcohol Use : No TOMAS BERNARD RN - 11/30/2013 8:06 CDT Recreational Drug Use Grid Drug Use : None TOMAS BERNARD RN - 11/30/2013 8:06 CDT Source: [facility] [employer] Document Id: [id number] CDT!64 Tomas Bernard R.N. - 11/30/2013 8:04 AM CDT ED Triage Assessment Document Has Been Updated ED Triage Assessment Entered On: 11/30/2013 8:05 CDT Performed On: 11/30/2013 8:04 CDT by TOMAS BERNARD RN Reason For Visit (As Of: 11/30/2013 08:05:54 CDT) Diagnoses(Active) Dizziness Date: 11/30/2013 ; Diagnosis Type: Reason For Visit ; Confirmation: Complaint of ; Clinical Dx: Dizziness ; Classification: Medical ; Clinical Service: Emergency medicine ; Code: PNED ; Probability: 0 ; Diagnosis Code: [id number] Triage Chief Complaint Description : patient brought in by with dizziness since Sunday Information Given By : Patient Accompanied By : Spouse Mode of Arrival ED : Private vehicle Track : Medical Languages : Mosoth[place] Patient Informed of Triage Location : Emergency department [facility] Assessed : Yes Is Patient Female and 13-50 no hysterectomy : No Treatments Prior to Arrival : None TOMAS BERNARD RN - 11/30/2013 8:04 CDT Rye Coma Eye Opening Response Rye : Spontaneously Best Verbal Response Rye : Oriented Best Motor Response Sierra : Obeys simple commands Sierra Coma Score : 15 TOMAS BERNARD RN - 11/30/2013 8:04 CDT Pain Assessment Pain Symptoms : No TOMAS BERNARD RN - 11/30/2013 8:04 CDT ED Physician Notification Time ED Physician Notification Time : 11/30/2013 8:05 CDT TOMAS BERNARD RN - 11/30/2013 8:04 CDT CAROL DCP GENERIC CODE Tracking Acuity : 4 -Less Urgent Tracking Group : [facility] ED TOMAS BERNARD RN - 11/30/2013 8:04 CDT Allergy (As Of: 11/30/2013 08:05:54 CDT) Allergies (Active) NKA Estimated Onset Date: Unspecified ; Created By: TOMAS BERNARD RN; Reaction Status: Active ; Category: Drug ; Substance: NKA ; Type: Allergy ; Updated By: TOMAS BERNARD RN; Reviewed Date: 11/30/20138:05 CDT Immunizations Immunizations Current : Yes TOMAS BERNARD RN - 11/30/2013 8:04 CDT Source: [facility] [employer] Document Id: [id number] CDT!27 documented in this encounter Miscellaneous Notes Miscellaneous - Tomas Bernard R.N. - 11/30/2013 11:03 AM CDT Valuables/Belongings Valuables/Belongings Entered On: 11/30/2013 11:03 CDT Performed On: 11/30/2013 11:03 CDT by TOMAS BERNARD RN Valuables/Belongings Home Medication Disposition : None brought in with patient TOMAS BERNARD RN - 11/30/2013 11:03 CDT Source: [facility] [employer] Document Id: [id number] CDT!3 Miscellaneous - Tomas Bernard RFrankie. - 11/30/2013 7:57 AM CDT Facility Charge Ticket 2.0 11.0 DX Facility Charge Ticket 2.0 11.0 DX Entered On: 11/30/2013 11:03 CDT Performed On: 11/30/2013 7:57 CDT by TOMAS BERNARD RN Facility Charge Ticket 2.0 11.0 DX ED Other Charges : Standard ED Encounter TVL Level Translated RTF : Dizziness TVL:4 TVL Level for Facility Charge Ticket : Level 4 Arrival Mode Calc : 1 Mode of Arrival ED : Private vehicle [place] Mode of Arrival Interpreted : Standard [facility] Process Management : None Order Management RTF : Laboratory Basic Metabolic Panel,11/30/13 08:29,ANITHA GRAY MD Completed CBC (includes Auto Differential),11/30/13 08:29,ANITHA GRAY MD Completed Magnesium Level,11/30/13 08:29,ANITHA GRAY MD Completed Urinalysis with Microscopic,11/30/13 08:29,ANITHA GRAY MD Completed Automated Diff-5 Part,11/30/13 08:48,ANITHA GRAY MD Completed Xray XR Chest 2 Views,11/30/13 08:29,ANITHA GRAY MD Completed [place] Order Management : Lab tests, Xray - plain films 30 Minutes Critical Care : No Nursing Notes RTF : Triage Forms ED Triage Assessment,11/30/13 08:04,TOMAS BERNARD RN Nursing Notes ED Primary Assessment,11/30/13 08:06,TOMAS BERNARD RN [facility] Nursing Assessment : Triage and 1-2 nursing assessments [facility] Disposition : Discharge [place] Total Points with Diagnosis Control : 9 [place] Visit Level : 03097 Level 4 Treatments Prior to Arrival : None TOMAS BERNARD RN - 11/30/2013 11:03 CDT Source: [facility] [employer]CHART Document Id: [id number] CDT!18 documented in this encounter Plan of Treatment Upcoming Encounters Date Type Specialty Care Team Description 11/18/2021 Appointment Radiation Oncology Luiz Nagy M.D. [address] [place] [phone] (Wo rk) documented as of this encounter Procedures Procedure Name Priority Date/Time Associated Comments Diagnosis URINALYSIS WITH Routine 11/30/2013 9:37 AM Result s for this MICROSCOPIC CDT procedure are i n the results section. AUTOMATED Routine 11/30/2013 8:40 AM Results f or this DIFFERENTIAL, B CDT procedure ar e in the results section. CBC WITH Routine 11/30/2013 8:40 AM Results f or this DIFFERENTIAL, B CDT procedure ar e in the results section. MAGNESIUM, S Routine 11/30/2013 8:40 AM Results f or this CDT procedure are i n the results section. BASIC METABOLIC Routine 11/30/2013 8:40 AM Result s for this PANEL, S/P CDT procedure are i n the results section. documented in this encounter Results Urinalysis, Complete, Includes Microscopic (11/30/2013 9:37 AM CDT) [facility] gist Method Time Signature Source Clean Void POWERCHART Urine HXUr Color Yellow POWERCHART Clarity Clear POWERCHART Glucose Negative MGDL POWERCHART HXBILIRUBIN Negative POWERCHART Ketones, QL(U) Negative MGDL POWERCHART Specific >=1.030 POWERCHART [place], POCT, U pH, POCT, Urine 5.5 POWERCHART Protein, Ur, Dip Negative MGDL POWERCHART Urobilinogen 0.2 MGDL POWERCHART HXNITRITE Negative POWERCHART HXBLOOD Negative POWERCHART Leukocyte Negative POWERCHART Esterase HXUR WBC. Occ-3 HPF POWERCHART HXUR RBC. None Seen HPF POWERCHART Squamous Occ-3 HPF POWERCHART Epithelial Specimen (Source) Anatomical Collection Method Collection Time Re ceived Time Location / / Volume Laterality Urine 11/30/2013 9:37 AM CDT Anitha Gray M.D. LAB URINE ORDERABLES Performing Organization Address City/State/ZIP Code Phon e Number POWERCHART Automated Differential (11/30/2013 8:40 AM CDT) P athologist Signature Absolute 5.08 1.70 - POWERCHART Neutrophils 7.00 109L Lymphocytes 1.02 0.90 - POWERCHART 2.90 X109L Monocytes 0.69 0.30 - POWERCHART 0.90 X109L Eosinophils 0.10 0.05 - POWERCHART 0.50 X109L Absolute 0.01 0.00 - POWERCHART Basophil 0.30 X109L Specimen Anatomical Collection Method Collection Time Receive d Time (Source) Location / / Volume Laterality Blood 11/30/2013 8:40 AM 4 8:40 CDT AM CDT Anitha Gray M.D. LAB BLOOD ADD-ON Performing Organization Address City/[facility] Code Phon e Number POWERCHART CBC with Differential (11/30/2013 8:40 AM CDT) P athologist Signature Leukocytes 6.9 3.5 - 10.5 POWERCHART X109L Erythrocytes 4.58 4.32 - POWERCHART 5.72 [id number] Hemoglobin 13.6 13.5 - POWERCHART 17.5 GDL Hematocrit 41.5 38.8 - POWERCHART 50.0 MCV 90.6 81.0 - POWERCHART 95.0 FL HX RDW 12.8 11.8 - POWERCHART 15.6 Platelet Count 214 150 - 450 POWERCHART X109L HXDifferential? Auto POWERCHART Specimen (Source) Anatomical Collection Method Collection Time Re ceived Time Location / / Volume Laterality Blood 11/30/2013 8:40 AM CDT Anitha Gray M.D. LAB BLOOD ADD-ON Performing Organization Address City/[facility] Code Phon e Number POWERCHART Magnesium (11/30/2013 8:40 AM CDT) P athologist Signature Magnesium, S 1.8 1.7 - 2.1 POWERCHART MGDL Specimen (Source) Anatomical Collection Method Collection Time Re ceived Time Location / / Volume Laterality Blood 11/30/2013 8:40 AM CDT Anitha Gray M.D. LAB BLOOD ADD-ON Performing Organization Address City/State/ZIP Code Phon e Number POWERCHART (ABNORMAL) BMP (Basic Metabolic Panel) (11/30/2013 8:40 AM CDT) P athologist Signature Anion Gap 13 10 - 20 POWERCHART MMOLL BUN (Blood Urea 21 (H) 7 - 18 POWERCHART Nitrogen), S MGDL Chloride, S 101 98 - 107 POWERCHART MMOLL CO2 Total 25.0 23.0 - POWERCHART 29.0 MMOLL Creatinine 0.93 0.60 - POWERCHART 1.30 MGDL Glucose 134 70 - 139 POWERCHART MGDL Calcium, Total, 8.7 (L) 8.8 - 10.2 POWERCHART S MGDL Sodium, S 135.4 135.0 - POWERCHART 145.0 MMOLL Potassium, S 4.0 3.6 - 4.8 POWERCHART MMOLL HXeGFR (MDRD) >60 >=60 POWERCHART [id number] eGFR >60 >=60 POWERCHART Black/ [id number] Congol[place] Specimen (Source) Anatomical Collection Method Collection Time Re ceived Time Location / / Volume Laterality Blood 11/30/2013 8:40 AM CDT Anitha Gray M.D. LAB BLOOD ADD-ON Performing Organization Address City/State/ZIP Code Phon e Number POWERCHART documented in this encounter Visit Diagnoses Not on filedocumented in this encounter
== END 2021-11-18 08:58 | disposition home or self-care (01) ==
PROVIDERS: Visit Provider Internal Medicine
DX: C79.31 Secondary malignant neoplasm of brain (principal)
CPT/HCPCS: 70553; A9575

== ENCOUNTER 2022-05-12 11:01 | Outpatient (CLI) | payer MEDICARE, BC, SELFPAY | END 2022-05-12 11:02 | disposition home or self-care (01) | PROVIDERS: Visit Provider Internal Medicine | DX: C79.31 Secondary malignant neoplasm of brain (principal) | CPT/HCPCS: 70553; 99211; A9575 ==

== ENCOUNTER 2022-05-12 12:14 | Outpatient (RCR) | payer MEDICARE, BC, SELFPAY | END 2022-10-09 23:59 | disposition home or self-care (01) | LOC: CCIC 12:14 | PROVIDERS: Visit Provider Clinical Nurse Specialist | DX: C79.31 Secondary malignant neoplasm of brain (principal) | CPT/HCPCS: 99211 ==

== ENCOUNTER 2022-09-16 10:56 | Outpatient (CLI) | payer MEDICARE, BC, SELFPAY | END 2022-09-16 10:57 | disposition home or self-care (01) | PROVIDERS: Visit Provider Family Medicine | DX: S49.92XA Unspecified injury of left shoulder and upper arm, initial encounter (principal); W10.8XXA Fall (on) (from) other stairs and steps, initial encounter; Y92.009 Unspecified place in unspecified non-institutional (private) residence as the place of occurrence of the external cause | CPT/HCPCS: A0998 ==